=== PATIENT | female | born 1960 | race Caucasian/White ===

== ENCOUNTER → 2017-10-17 | Outpatient (CLI) | payer OTHER ==
[2017-10-17 17:13] LABS: HEMATOCRIT 43.7 % (37-47); MEAN CELL VOLUME 91.2 fL (80-100); MEAN CORPUSCULAR HEMOGLOBIN 31.3 pg (25-34); MEAN CORPUSCULAR HGB CONC 34.3 g/dl (32-36); MEAN PLATELET VOLUME 11.1 fL (7.4-10.4); PLATELET COUNT 287 K/uL (130-400); RED CELL DISTRIBUTION WIDTH CV 13.7 % (11.5-14.5); RED CELL DISTRIBUTION WIDTH SD 45.8 fL (36.4-46.3); WHITE BLOOD COUNT 7.09 K/uL (4.8-10.8)
[2017-10-17 17:44] LABS: ALBUMIN 4.3 gm/dl (3.4-5.0); ALT/SGPT 35 U/L (12-78); AST/SGOT 23 U/L (15-37); BLOOD UREA NITROGEN 15 mg/dl (7-18); CALCIUM 9.4 mg/dl (8.5-10.1); CARBON DIOXIDE 26 mmol/L (21-32); CHOLESTEROL 245 mg/dl (0-200); CREATININE 0.79 mg/dl (0.60-1.20); GLUCOSE 88 mg/dl (70-99); POTASSIUM 4.2 mmol/L (3.5-5.1); SODIUM 138 mmol/L (136-145)
[2017-10-17 17:55] LABS: ALKALINE PHOSPHATASE 82 U/L (45-117); LDL CHOLESTEROL CALCULATED 156 mg/dl; TOTAL PROTEIN 7.5 gm/dl (6.4-8.2)
== END | disposition home or self-care (01) ==
LOC: C.LABPBG 10:59
PROVIDERS: ATTEND Family Medicine
DX: I10 Essential (primary) hypertension (principal); E78.00 Pure hypercholesterolemia, unspecified; Z11.59 Encounter for screening for other viral diseases

== ENCOUNTER → 2018-04-16 | Outpatient (CLI) | payer OTHER ==
[2018-04-16 13:01] LABS: HEMATOCRIT 44.9 % (37-47); HEMOGLOBIN 15.4 g/dL (12.0-16.0); MEAN CELL VOLUME 89.6 fL (80-100); MEAN CORPUSCULAR HEMOGLOBIN 30.7 pg (25-34); MEAN CORPUSCULAR HGB CONC 34.3 g/dl (32-36); MEAN PLATELET VOLUME 11.3 fL (7.4-10.4); PLATELET COUNT 322 K/uL (130-400); RED CELL DISTRIBUTION WIDTH CV 14.2 % (11.5-14.5); RED CELL DISTRIBUTION WIDTH SD 46.4 fL (36.4-46.3); WHITE BLOOD COUNT 7.46 K/uL (4.8-10.8)
[2018-04-16 13:32] LABS: ALT/SGPT 36 U/L (12-78); AST/SGOT 20 U/L (15-37); BLOOD UREA NITROGEN 12 mg/dl (7-18); CALCIUM 9.5 mg/dl (8.5-10.1); CARBON DIOXIDE 26 mmol/L (21-32); CHOLESTEROL 234 mg/dl (0-200); CREATININE 0.76 mg/dl (0.60-1.20); GLUCOSE 95 mg/dl (70-99); LDL CHOLESTEROL CALCULATED 139 mg/dl; POTASSIUM 4.1 mmol/L (3.5-5.1); SODIUM 140 mmol/L (136-145)
== END | disposition home or self-care (01) ==
LOC: C.LABPBG 10:38
PROVIDERS: ATTEND Family Medicine
DX: I10 Essential (primary) hypertension (principal); E78.00 Pure hypercholesterolemia, unspecified

== ENCOUNTER 2020-05-29 21:05 | Inpatient (IN) ==
--- NOTE | 2020-05-29 21:47 | Emergency Department Note ---
History of Present Illness General Chief complaint: Fever Stated complaint: FEVER - CHEMO AND RADIATION PT - JUST GOT PORT Time Seen by Provider: 05/29/20 21:27 Source: patient Mode of arrival: ambulatory Limitations: no limitations History of Present Illness Provider complaint: Fever Maximum Pain Intensity: 3 Resents to the ED with a chief complaint of fever no other symptoms. The patient states that she was recently diagnosed with lung cancer. She had a port placed in her left chest wall 4 days ago. She states that she had a fever today of 101.8 at 6 PM today. She came to the ED and is afebrile here. She reports some mild body aches but no other symptoms. She has not had a runny nose or cough. No shortness of breath. No urinary symptoms. No rashes. She is being treated with small cell lung cancer. She just had chemotherapy and radiation therapy this past week. Home Medications Home Medications Medication Instructions Recorded Confirmed Type simvastatin 20 mg tablet 20 mg PO HS #90 tab 12/29/19 05/29/20 Rx amlodipine 10 mg PO QAM 04/14/20 05/29/20 History fenofibrate nanocrystallized 48 mg PO QAM 04/14/20 05/29/20 History hydrochlorothiazide 25 mg PO QAM 04/14/20 05/29/20 History metoprolol succinate 100 mg PO QAM 04/14/20 05/29/20 History omeprazole 20 mg PO DAILY PRN 05/19/20 05/29/20 History acetaminophen 1,000 mg PO Q6H PRN 05/29/20 05/29/20 History olanzapine 2.5 mg PO HS 05/29/20 05/29/20 History ondansetron HCl 8 mg PO DAILY PRN 05/29/20 05/29/20 History prochlorperazine maleate 10 mg PO Q6H PRN 05/29/20 05/29/20 History Allergies Allergy/AdvReac Type Severity Reaction Status Date / Time lisinopril AdvReac Mild Cough Verified 05/29/20 22:03 Past Med/Surg History Medical History Arthritis Bilat Knees & lower back Cancer LUNG CA, CURRENT CHEMO AND RADIATION Depression Hypercholesterolemia Hypertension Jaw clicking Mediastinal adenopathy Restless leg syndrome Surgical History H/O arthroscopic knee surgery 1998 RIGHT/ 2011 LEFT H/O tubal ligation 1991 H/O: section x2 1987 & 1982 History of bronchoscopy 04/21/2020 - with positive biopsy History of excision of pilonidal cyst 1987 History of tooth extraction molars Port-A-Cath in place (05/25/20) Insertion of Mediport Left Subclavian with Fluoroscopy Dr. Ramos 05/25/2020 S/P carpal tunnel release 1989's RT / 2014 LEFT S/P tonsillectomy Age 4 Family History Mother , Passed age 64 of pancreatic cancer Hypertension Cancer Father Hearing loss Grandmother (Maternal) , Passed age 79 of Stomach Cancer No problems noted. Uncle , Passed in 80's of Colorectal Cancer No problems noted. Brother No problems noted. Brother No problems noted. Sister No problems noted. Grandfather (Maternal) , Passed age 89 of Bladder Cancer No problems noted. Son No problems noted. Daughter No problems noted. Grandmother Cancer Grandfather Cancer Other No family history of allergies No family history of bleeding disorder Denies family history of Ovarian cancer Heart disease Breast cancer Lung cancer Asthma Social History Smoking Status: Former smoker Tobacco Type: Cigarettes Age Started Using Tobacco: 20; packs per day: 1; Second Hand Exposure: No; Hx Alcohol Use: Yes (social) Alcohol type: beer and wine Alcohol Intake Frequency: Monthly or Less Hx Substance Use: No (is a current smoker) Preferred Language: Ethiopian Communication Ability: Effective Visual Impairment: No Limitations Hearing Ability: Normal Turn Laster Required: No Beliefs That Will Affect Care: None marital status: Current Living Situation: Spouse current occupational status: employed 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 How many Children do You have: 2 Feels Safe at Home: Yes Childhood Exposure to Second-Hand Smoke: Yes caffeine: Yes (ice tea) during the past year weight has: remained stable Dental Care, Regularly: Yes Physical Activity Frequency: Does not Exercise Seatbelt Use: always Sunscreen Use: No Review of Systems A total of 10 systems reviewed and were otherwise negative Physical Exam Vital Signs Vital Signs - 24 hr 05/29/20 21:08 05/29/20 22:48 Temperature 37.1 C Temperature Source Oral Pulse Rate 99 H Pulse Rate [Radial] 73 Pulse Rhythm [Radial] Regular Respiratory Rate 18 18 Respiratory Effort / Characteristics Non-Labored Non-Labored Spontaneous Respiratory Depth Normal Normal Respiratory Pattern Regular Blood Pressure 151/80 H Blood Pressure [Right Arm] 112/62 Blood Pressure Mean 103 Blood Pressure Mean [Right Arm] 78 Pulse Oximetry 97 96 Oxygen Delivery Method Room Air Room Air Sepsis Recent Fever Within 48 Hours Yes Sepsis New/Unexplained Change in Mental Status No Sepsis Action Taken by Nursing No Action Required CONSTITUTIONAL/VITAL SIGNS: Reviewed / noted above. GENERAL: Non-toxic in appearance. INTEGUMENTARY: Warm, dry, and Cylinder. HEAD: Normocephalic. EYES: without scleral icterus or trauma. ENT/OROPHARYNX: clear and moist. LYMPHADENOPATHY/NECK: Is supple without lymphadenopathy or meningismus. RESPIRATORY: Lungs clear and equal. CARDIOVASCULAR: Regular rate and rhythm. CHEST: There is a well-healed wound from a port in the left chest wall. No swelling, discharge or erythema. Mildly tender. GI/ABDOMEN: Soft and nontender. No organomegaly or pulsatile mass. No rebound or guarding. Normal bowel sounds. EXTREMITIES: Warm and well perfused. BACK: No CVA tenderness. NEUROLOGICAL: Intact without focal deficits. PSYCHIATRIC: normal affect. MUSCULOSKELETAL: Normally developed with good muscle tone. TRIAGE NURSING DOCUMENTATION REVIEWED. Medical Decision Making Medical Records Attestation: I reviewed the patient's medical records. Home Medications Current Medication List: was personally reviewed by me Laboratory Data Attestation: I reviewed the patient's lab results. Result diagrams: 05/29/20 22:09 05/29/20 22:09 Lab Results 05/29/20 05/29/20 Range/Units 22:09 22:09 WBC 1.26 L (4.8-10.8) K/uL RBC 4.17 L (4.2-5.4) M/uL Hgb 12.6 (12.0-16.0) g/dL Hct 36.3 L (37-47) % MCV 87.1 (80-100) fL MCH 30.2 (25-34) pg MCHC 34.7 (32-36) g/dL RDW Std Deviation 41.3 (36.4-46.3) fL RDW Coeff of Sebastián 12.9 (11.5-14.5) % Plt Count 136 (130-400) K/uL MPV 9.6 (7.4-10.4) fL Immature Gran % (Auto) 0.0 % Neut % (Auto) 7.1 % Lymph % (Auto) 60.3 % [place] % (Auto) 27.8 % Eos % (Auto) 3.2 % Baso % (Auto) 1.6 % Neut # (Auto) 0.09 L* (1.4-6.5) K/uL Lymph # (Auto) 0.76 L (1.2-3.4) K/uL [place] # (Auto) 0.35 (0.11-0.59) K/uL Eos # (Auto) 0.04 (0-0.5) K/uL Baso # (Auto) 0.02 (0-0.2) K/uL Immature Gran # (Auto) 0.00 (0.00-0.02) K/uL Sodium 139 (136-145) mmol/L Potassium 3.5 (3.5-5.1) mmol/L Chloride 104 (98-107) mmol/L Carbon Dioxide 26 (21-32) mmol/L Anion Gap 9.0 (3-11) BUN 16 (7-18) mg/dl Creatinine 1.16 (0.6-1.2) mg/dl Est Cr Clr Drug Dosing Not Reportable Est GFR ( Amer) 60.1 Est GFR (Non-Af Amer) 51.9 BUN/Creatinine Ratio 13.6 (10-20) Glucose 88 (70-99) mg/dl Calcium 9.1 (8.5-10.1) mg/dl Total Bilirubin 0.3 (0.2-1) mg/dl AST 20 (15-37) U/L ALT 35 (12-78) U/L Alkaline Phosphatase 84 (45-117) U/L Total Protein 7.6 (6.4-8.2) gm/dl Albumin 3.7 (3.4-5.0) gm/dl Globulin 3.9 (2.5-4.0) gm/dl Albumin/Globulin Ratio 1.0 (0.9-2) Imaging Data Attestation: I personally reviewed and interpreted this imaging study as follow s: My Impression: Chest x-ray: Per my interpretation is negative for acute disease MDM Narrative The patient presents to the ED with a chief complaint of a fever at home as well as some mild body aches. Her fever was at 6 PM. She did not take any antipyretics. She is afebrile here. She has recently received chemotherapy and radiation therapy and had a left chest wall port placed 4 days ago. She is being treated for small cell lung cancer. Her exam is unremarkable. She is afebrile now. Her white blood cell count is 1.26 with an ANC of 90. Chemistry panel was unremarkable. The patient was started on IV cefepime. She appears clinically well. Because of the ANC and history of fever, she will be seen by the hospitalist for further evaluation and care. Impression & Plan Febrile neutropenia Discharge Plan Visit Data Chief Complaint: Fever Stated Complaint: FEVER - CHEMO AND RADIATION PT - JUST GOT PORT ED Provider: Siva Bruner Discharge Problem: Febrile neutropenia Patient Disposition: Being Evaluated by Hospitalist Forms Stand Alone Forms: My [facility] Prescriptions Prescriptions: No Action simvastatin 20 mg tablet 20 mg PO HS Qty: 90 RF: 3 omeprazole 20 mg capsule,delayed release(DR/EC) 20 mg PO DAILY PRN (Reason: Acid Reflux) RF: 0 ondansetron HCl 8 mg tablet 8 mg PO DAILY PRN (Reason: Nausea) RF: 0 prochlorperazine maleate 10 mg tablet 10 mg PO Q6H PRN (Reason: Nausea) RF: 0 olanzapine 2.5 mg tablet 2.5 mg PO HS RF: 0 acetaminophen 500 mg Tablet 1,000 mg PO Q6H PRN (Reason: Fever Or Pain) RF: 0 metoprolol succinate 100 mg tablet extended release 24 hr 100 mg PO QAM RF: 0 amlodipine 10 mg tablet 10 mg PO QAM RF: 0 hydrochlorothiazide 25 mg tablet 25 mg PO QAM RF: 0 fenofibrate nanocrystallized 48 mg tablet 48 mg PO QAM RF: 0 Referrals Referrals: Jane Ortiz DO [Primary Care Provider] -
[2020-05-29 22:18] LABS: Hematocrit (blood only) 36.3 % (37-47); Hemoglobin 12.6 g/dL (12.0-16.0); Mean Corpuscular Hemoglobin 30.2 pg (25-34); Mean Corpuscular Hgb Conc 34.7 g/dL (32-36); Mean Corpuscular Volume 87.1 fL (80-100); Mean Platelet Volume 9.6 fL (7.4-10.4); Platelet Count 136 K/uL (130-400); RDW Coefficient of Variation 12.9 % (11.5-14.5); RDW Standard Deviation 41.3 fL (36.4-46.3); Red Blood Count 4.17 M/uL (4.2-5.4); White Blood Count 1.26 K/uL (4.8-10.8)
[2020-05-29 22:37] LABS: Basophils # (auto) 0.02 K/uL (0-0.2); Basophils % (auto) 1.6 %; Eosinophils # (auto) 0.04 K/uL (0-0.5); Eosinophils % (auto) 3.2 %; Lymphocytes # (auto) 0.76 K/uL (1.2-3.4); Lymphocytes % (auto) 60.3 %; Monocytes # (auto) 0.35 K/uL (0.11-0.59); Monocytes % (auto) 27.8 %; Neutrophils # (auto) 0.09 K/uL (1.4-6.5); Neutrophils % (auto) 7.1 %
[2020-05-29 22:39] LABS: Alanine Aminotransferase 35 U/L (12-78); Albumin Level 3.7 gm/dl (3.4-5.0); Aspartate Aminotransferase 20 U/L (15-37); BUN Creatinine Ratio 13.6 (10-20); Blood Urea Nitrogen 16 mg/dl (7-18); Calcium 9.1 mg/dl (8.5-10.1); Carbon Dioxide 26 mmol/L (21-32); Chloride 104 mmol/L (98-107); Est GFR (African American) 60.1; Est GFR (Non-African American) 51.9; Glucose 88 mg/dl (70-99); Potassium 3.5 mmol/L (3.5-5.1); Sodium 139 mmol/L (136-145)
[2020-05-29 22:42] LABS: Alkaline Phosphatase 84 U/L (45-117); Bilirubin,Total 0.3 mg/dl (0.2-1); Globulin 3.9 gm/dl (2.5-4.0); Total Protein 7.6 gm/dl (6.4-8.2)
[2020-05-29] MEDS ORDERED: CEFEPIME 2,000 MG/20 ML VIAL IV STA (23:03)
[2020-05-29 23:47] LABS: Appearance Urine Clear (Clear); Bilirubin Urine Negative (Negative); Blood Urine Negative (Negative); Color Urine Yellow; Glucose Urine UA Negative (Negative); Ketones Urine Negative (Negative); Leukocyte Esterase Urine Negative (Negative); Nitrite Urine Negative (Negative); Protein Urine Negative (Negative); Specific Gravity Urine 1.019 (1.000-1.030); Urobilinogen Urine Negative (Negative); pH Urine 6.5 (4.5-7.5)
--- NOTE | 2020-05-29 23:51 | History & Physical Report ---
Date of Service May 29, 2020 Assessment & Plan (1) Febrile neutropenia: We will give Neupogen 480 mcg subcu x1 tonight. Follow serial CBC with differential, chemistry profile and magnesium levels. Neutropenia precautions Patient was given cefepime 2 g IV in the ED. We will place on vancomycin IV per pharmacokinetic monitoring and Zosyn 4.5 g IV every 8 hours Follow urine culture and sensitivity, blood culture and sensitivity. Present on Admission?: Yes (2) Small cell lung cancer: Undergoing chemotherapy with Dr. Olmos. Undergoing continuing daily radiation therapy with Dr. Darby. Both of whom will be consulted Present on Admission?: Yes (3) Hypertension: Hold amlodipine grams daily and HCTZ 25 mg daily. Continue metoprolol succinate 100 mg p.o. every morning with hold parameters Present on Admission?: Yes (4) Hypercholesterolemia: Continue simvastatin 20 mg p.o. at bedtime and fenofibrate 48 mg every morning Present on Admission?: Yes (5) Depression: Continue olanzapine 2.5 mg p.o. at bedtime Present on Admission?: Yes (6) Restless leg syndrome: On no specific treatment at this time Present on Admission?: Yes (7) GERD (gastroesophageal reflux disease): Omeprazole 20 mg p.o. daily Present on Admission?: Yes History of Present Illness Chief Complaint: The patient presents to the emergency department with complaint of fever recorded as 101.8 F at 6 PM today. Primary Care Provider: Jane cosby DO The patient is a 60-year-old female with a past medical history including small cell lung cancer, depression, hypercholesterolemia, hypertension, restless leg syndrome, tobacco abuse, GERD who was diagnosed with lung cancer in March 2020. She is undergoing daily radiation therapy with Dr. Darby, which has caused some [id number] swallowing discomfort, and has completed her first round of chemotherapy with Dr. Olmos. She developed a temperature of 101.6 F at 6 PM today, but has no specific symptoms. She has not had any recent travels or sick exposures. She has been COVID-19 test negative on 04/17/2020, 04/28/20 and 05/22/2020. Allergies Allergy/AdvReac Type Severity Reaction Status Date / Time lisinopril AdvReac Mild Cough Verified 05/29/20 22:03 Home Medications Home Medications Medication Instructions Recorded Confirmed Type simvastatin 20 mg tablet 20 mg PO HS #90 tab 12/29/19 05/29/20 Rx amlodipine 10 mg PO QAM 04/14/20 05/29/20 History fenofibrate nanocrystallized 48 mg PO QAM 04/14/20 05/29/20 History hydrochlorothiazide 25 mg PO QAM 04/14/20 05/29/20 History metoprolol succinate 100 mg PO QAM 04/14/20 05/29/20 History omeprazole 20 mg PO DAILY PRN 05/19/20 05/29/20 History acetaminophen 1,000 mg PO Q6H PRN 05/29/20 05/29/20 History olanzapine 2.5 mg PO HS 05/29/20 05/29/20 History ondansetron HCl 8 mg PO DAILY PRN 05/29/20 05/29/20 History prochlorperazine maleate 10 mg PO Q6H PRN 05/29/20 05/29/20 History Past Med/Surg History Medical History Arthritis Bilat Knees & lower back Cancer LUNG CA, CURRENT CHEMO AND RADIATION Depression Hypercholesterolemia Hypertension Jaw clicking Mediastinal adenopathy Restless leg syndrome Surgical History H/O arthroscopic knee surgery 1998 RIGHT/ 2010 LEFT H/O tubal ligation 1991 H/O: section x2 1987 & 1982 History of bronchoscopy 04/21/2020 - with positive biopsy History of excision of pilonidal cyst 1987 History of tooth extraction molars Port-A-Cath in place (05/25/20) Insertion of Mediport Left Subclavian with Fluoroscopy Dr. Ramos 05/25/2020 S/P carpal tunnel release 1989's RT / 2014 LEFT S/P tonsillectomy Age 4 Family History Mother , Passed age 64 of pancreatic cancer Hypertension Cancer Father Hearing loss Grandmother (Maternal) , Passed age 79 of Stomach Cancer No problems noted. Uncle , Passed in 80's of Colorectal Cancer No problems noted. Brother No problems noted. Brother No problems noted. Sister No problems noted. Grandfather (Maternal) , Passed age 89 of Bladder Cancer No problems noted. Son No problems noted. Daughter No problems noted. Grandmother Cancer Grandfather Cancer Other No family history of allergies No family history of bleeding disorder Denies family history of Ovarian cancer Heart disease Breast cancer Lung cancer Asthma Social History Smoking Status: Former smoker Tobacco Type: Cigarettes Age Started Using Tobacco: 20; packs per day: 1; Second Hand Exposure: No; Hx Alcohol Use: Yes Alcohol type: wine Alcohol Intake Frequency: Monthly or Less Hx Substance Use: No Preferred Language: Salvadorean Communication Ability: Effective Visual Impairment: No Limitations Hearing Ability: Normal Cafe Lead Required: No Beliefs That Will Affect Care: None marital status: Current Living Situation: Spouse current occupational status: employed 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 How many Children do You have: 2 Feels Safe at Home: Yes Childhood Exposure to Second-Hand Smoke: Yes caffeine: Yes (ice tea) during the past year weight has: remained stable Dental Care, Regularly: Yes Physical Activity Frequency: Does not Exercise Seatbelt Use: always Sunscreen Use: No Review of Systems Review of Systems: The patient denies chest pain, palpitations, shortness of breath, dyspnea on exertion, cough, lower extremity swelling, chills, sweats, weight change, fatigue, nausea, vomiting, diarrhea , constipation, abdominal pain, pelvic pain, blood in urine or stool, dysuria, urinary frequency or urgency, lightheadedness, dizziness, headache, memory loss, loss of consciousness, rash, abnormal bruising or bleeding, imbalance, focal or generalized weakness, numbness or tingling in arms or legs, generalized arthralgias or myalgias, back or neck pain, or night sweats. The review of systems is otherwise negative other than for that already noted above, and at least 10 systems have been reviewed. Physical Exam Physical Exam: The patient is awake, alert and oriented 3, well developed and well nourished, normocephalic and atraumatic, lying in bed and in no acute distress. HEENT--PERRL, EOMI, mucous membranes and oropharynx dry. Neck--supple. No JVD. No bruits. Thyroid normal, trachea midline, no adenopa thy. Heart--normal S1 and S2. No murmurs, rubs or gallops. Lungs--clear bilaterally, no respiratory distress, no accessory muscle use. Abdomen--normal bowel sounds and soft. Nontender. Nondistended. Extremities--no cyanosis or clubbing. No edema. Dermatologic--normal skin turgor, normal color, no abnormal lymph nodes, no rash. Neurologic--cranial nerves II through XII grossly intact. Rheumatologic--normal range of motion. Psychiatric--normal affect. Results & Data Results & Data ([facility]) Vital Signs (Past 12 Hours) Vital Signs Temp Pulse Pulse Resp BP BP Pulse Ox 05/29/20 23:31 84 20 124/63 95 05/29/20 23:00 74 22 121/73 95 05/29/20 22:48 73 18 112/62 96 05/29/20 21:08 98.8 F 99 H 18 151/80 H 97 Laboratory Results Laboratory Results WBC 1.26 K/uL (4.8-10.8) L 05/29/20 22:09 RBC 4.17 M/uL (4.2-5.4) L 05/29/20 22:09 Hgb 12.6 g/dL (12.0-16.0) 05/29/20 22:09 Hct 36.3 % (37-47) L 05/29/20 22:09 MCV 87.1 fL (80-100) 05/29/20 22:09 MCH 30.2 pg (25-34) 05/29/20 22:09 MCHC 34.7 g/dL (32-36) 05/29/20 22:09 RDW Std Deviation 41.3 fL (36.4-46.3) 05/29/20 22:09 RDW Coeff of Sebastián 12.9 % (11.5-14.5) 05/29/20 22:09 Plt Count 136 K/uL (130-400) 05/29/20 22:09 MPV 9.6 fL (7.4-10.4) 05/29/20 22:09 Immature Gran % (Auto) 0.0 % 05/29/20 22:09 Neut % (Auto) 7.1 % 05/29/20 22:09 Lymph % (Auto) 60.3 % 05/29/20 22:09 [place] % (Auto) 27.8 % 05/29/20 22:09 Eos % (Auto) 3.2 % 09/07/20 22:09 Baso % (Auto) 1.6 % 05/29/20 22:09 Neut # (Auto) 0.09 K/uL (1.4-6.5) L* 05/29/20 22:09 Lymph # (Auto) 0.76 K/uL (1.2-3.4) L 05/29/20 22:09 [place] # (Auto) 0.35 K/uL (0.11-0.59) 05/29/20 22:09 Eos # (Auto) 0.04 K/uL (0-0.5) 05/29/20 22:09 Baso # (Auto) 0.02 K/uL (0-0.2) 05/29/20 22:09 Immature Gran # (Auto) 0.00 K/uL (0.00-0.02) 05/29/20 22:09 Sodium 139 mmol/L (136-145) 05/29/20 22:09 Potassium 3.5 mmol/L (3.5-5.1) 05/29/20 22:09 Chloride 104 mmol/L (98-107) 05/29/20 22:09 Carbon Dioxide 26 mmol/L (21-32) 05/29/20 22:09 Anion Gap 9.0 (3-11) 05/29/20 22:09 BUN 16 mg/dl (7-18) 05/29/20 22:09 Creatinine 1.16 mg/dl (0.6-1.2) 05/29/20 22:09 Est Cr Clr Drug Dosing Not Reportable 05/29/20 22:09 Est GFR ( Amer) 60.1 05/29/20 22:09 Est GFR (Non-Af Amer) 51.9 05/29/20 22:09 BUN/Creatinine Ratio 13.6 (10-20) 05/29/20 22:09 Glucose 88 mg/dl (70-99) 05/29/20 22:09 Calcium 9.1 mg/dl (8.5-10.1) 05/29/20 22:09 Total Bilirubin 0.3 mg/dl (0.2-1) 05/29/20 22:09 AST 20 U/L (15-37) 05/29/20 22:09 ALT 35 U/L (12-78) 05/29/20 22:09 Alkaline Phosphatase 84 U/L (45-117) 05/29/20 22:09 Total Protein 7.6 gm/dl (6.4-8.2) 05/29/20 22:09 Albumin 3.7 gm/dl (3.4-5.0) 05/29/20 22:09 Globulin 3.9 gm/dl (2.5-4.0) 05/29/20 22:09 Albumin/Globulin Ratio 1.0 (0.9-2) 05/29/20 22:09 Urine Color Yellow 05/29/20 23:11 Urine Appearance Clear (Clear) 05/29/20 23:11 Urine pH 6.5 (4.5-7.5) 05/29/20 23:11 Ur Specific [place] 1.019 (1.000-1.030) 05/29/20 23:11 Urine Protein Negative (Negative) 05/29/20 23:11 Urine Glucose (UA) Negative (Negative) 05/29/20 23:11 Urine Ketones Negative (Negative) 05/29/20 23:11 Urine Blood Negative (Negative) 05/29/20 23:11 Urine Nitrite Negative (Negative) 05/29/20 23:11 Urine Bilirubin Negative (Negative) 05/29/20 23:11 Urine Urobilinogen Negative (Negative) 05/29/20 23:11 Ur Leukocyte Esterase Negative (Negative) 05/29/20 23:11 Code Status & VTE Plan Code Status Full code VTE Prophylaxis Plan VTE Prophylaxis will be ordered: Yes PG Care Time/CCT Total # of Minutes Spent Total Time Spent with Patient: Total time spent is greater than 50% in coordination of care (as documented) at patient's floor/unit and/or counseling patient: Coding Level of Care Code 71962 Initial Inpt Care Lvl 3 Diagnoses Febrile neutropenia D70.9; R50.81 Small cell lung cancer C34.90 Hypertension I10 Hypercholesterolemia E78.00 Depression F32.9 Restless leg syndrome G25.81 GERD (gastroesophageal reflux disease) K21.9
[2020-05-30] MEDS ORDERED: FILGRASTIM 480 MCG/1.6 ML VIAL SC ONE (00:09)
[2020-05-30] MEDS ORDERED: VANCOMYCIN CONSULT ACTIVE PRN ×2 (00:17→01:31)
[2020-05-30] MEDS ORDERED: VANCOMYCIN HCL 1,750 MG in SODIUM CHLORIDE 0.9% 500 ML IV STA (00:20)
[2020-05-30] MEDS ORDERED: PATIENT'S HEIGHT NEEDED SCH (01:30)
[2020-05-30] MEDS ORDERED: PIPERACILL/TAZOBAC CONSULT ACTIVE PRN (01:31)
[2020-05-30] MEDS ORDERED: MAGNESIUM HYDROXIDE SUSP 30 ML UDC PO PRN (01:31)
[2020-05-30] MEDS ORDERED: ONDANSETRON INJ 2 MG/ML 2 ML VIAL IV PRN (01:31)
[2020-05-30] MEDS ORDERED: ACETAMINOPHEN 500 MG TAB PO PRN (01:31)
[2020-05-30] MEDS ORDERED: ALUMINUM/MAGNESIUM SUSP 30 ML UDC PO PRN (01:31)
[2020-05-30] MEDS: PIPERACILLIN/TAZOBACTAM 4.5 GM in DEXTROSE 5% 100 ML IV SCH ×3 (04:13→20:33)
[2020-05-30 05:41] LABS: Hematocrit (blood only) 33.7 % (37-47); Hemoglobin 11.3 g/dL (12.0-16.0); Mean Corpuscular Hemoglobin 29.4 pg (25-34); Mean Corpuscular Hgb Conc 33.5 g/dL (32-36); Mean Corpuscular Volume 87.5 fL (80-100); Mean Platelet Volume 9.7 fL (7.4-10.4); Platelet Count 147 K/uL (130-400); RDW Standard Deviation 41.7 fL (36.4-46.3); Red Blood Count 3.85 M/uL (4.2-5.4); White Blood Count 1.29 K/uL (4.8-10.8)
[2020-05-30 05:58] LABS: Partial Thromboplastin Time 27.5 Seconds (21.0-31.0); Prothrombin Time 10.6 Seconds (9.0-12.0)
[2020-05-30 06:15] LABS: Basophils # (auto) 0.01 K/uL (0-0.2); Basophils % (auto) 0.8 %; Dohle Bodies 1+; Eosinophils # (auto) 0.04 K/uL (0-0.5); Eosinophils % (auto) 3.1 %; Lymphocytes # (auto) 0.72 K/uL (1.2-3.4); Lymphocytes % (auto) 55.8 %; Monocytes # (auto) 0.38 K/uL (0.11-0.59); Monocytes % (auto) 29.5 %; Neutrophils # (auto) 0.14 K/uL (1.4-6.5); Neutrophils % (auto) 10.8 %
[2020-05-30 06:17] LABS: Albumin Level 3.3 gm/dl (3.4-5.0); Calcium 8.7 mg/dl (8.5-10.1); Creatinine Clr Calc Pharmacy 59.8 ml/min; Est GFR (African American) 71.9; Est GFR (Non-African American) 62.1; Magnesium 1.6 mg/dl (1.8-2.4); Potassium 3.1 mmol/L (3.5-5.1)
[2020-05-30 06:19] LABS: Bilirubin,Total 0.6 mg/dl (0.2-1); Globulin 3.4 gm/dl (2.5-4.0); Total Protein 6.7 gm/dl (6.4-8.2)
--- NOTE | 2020-05-30 06:51 | XRay Report ---
XR chest 1V portable HISTORY: 60 years-old Female fever acute fever COMPARISON: Chest radiograph 05/25/2020, PET CT 04/26/2020 TECHNIQUE: Portable AP view of the chest FINDINGS: Left upper lobe/perihilar mass redemonstrated. Unchanged positioning of the left subclavian Infuse-a- Port catheter. No pneumothorax, pleural effusion, overt pulmonary edema or airspace consolidation typ ical for pneumonia. Bones appear grossly intact. Minimal linear subsegmental left lung base scarring/ atelectasis. Degenerative changes of the shoulders and spine. IMPRESSION: 1. No acute process. 2. Left upper lobe/perihilar mass redemonstrated. ACT 112: Negative or not required by law. The above report was generated using voice recognition software. It may contain grammatical, syntax o r spelling errors. Electronically signed by: Kofi Torres M.D. 05/30/2020 6:49 AM
[2020-05-30] MEDS: ACETAMINOPHEN 325 MG TAB PO PRN ×3 (07:37→18:46)
[2020-05-30] MEDS: FENOFIBRATE NANOCRYSTALLIZED 48 MG TABLET PO SCH (08:06)
[2020-05-30] MEDS: METOPROLOL SUCC 50MG EXT REL TAB PO SCH (08:06)
[2020-05-30] MEDS: PANTOprazole 40 MG TAB PO SCH (08:06)
[2020-05-30] MEDS: HEPARIN SOD 5,000 UNIT/0.5 ML VIAL SQ SCH ×2 (08:08→20:33)
[2020-05-30] MEDS ORDERED: POTASSIUM CHLORIDE 20 MEQ TABCR PO STA (08:11)
[2020-05-30] MEDS: MAGNESIUM SULFATE / D5W 1 GM/100 ML BAG IV SCH ×2 (08:42→10:28)
--- NOTE | 2020-05-30 08:44 | Radiation Oncology Progress Nt ---
Date of Service May 30, 2020 Assessment & Plan (1) Small cell lung cancer: Assessment: Ms. Tipton is a 60 year old female who is currently under treatment with radiation therapy for limited stage small cell lung carcinoma. The patient was admitted to the hospital due to neutropenic fever. We have been asked to evaluate the patient regarding further radiation therapy. Recommendation: I have spoken with Dr. Olmos who is in agreement to proceed with radiation therapy. Plan: 1. Continue with radiation therapy. Patient was brought down for treatment today. 2. Continue all other care as per medical oncology and primary medical team. Present on Admission?: Yes Admission and Anticipated Discharge Date Admission Date: May 29, 2020 Subjective Patient currently on radiation therapy and chemotherapy for limited stage small cell lung carcinoma. Patient received treatments. Review of Systems Review of Systems: All systems reviewed & are unremarkable except as noted in HPI & below Physical Exam Constitutional: WD/WN, vitals as above well developed and well nourished Eyes: PERRL, conjunctivae normal, anicteric sclerae ENMT: external ear and nose normal, oropharynx normal Neck: trachea midline, no thyromegaly Respiratory: normal respiratory effort, lungs clear to auscultation Cardiovascular: RRR, no murmur, no edema Gastrointestinal (Abdomen): normal bowel sounds, soft, nontender, no hepatosplenomegaly Musculoskeletal: no cyanosis or clubbing, extremities motor strength 5/5 Skin: no rashes, warm and dry Neurologic: patellar DTR's 2+ bilat, sensation intact and PERRL, EOMI, accommodation nl, no face palsy, no dysarthria Psychiatric: A+Ox3, euthymic affect Results & Data ([facility]) Vital Signs (Past 12 Hours) Vital Signs Temp Pulse Pulse Pulse Resp BP BP 05/30/20 07:32 36.8 C 72 16 113/68 05/30/20 01:19 36.7 C 81 18 05/30/20 00:30 80 21 127/66 05/30/20 00:00 80 17 140/86 05/29/20 23:31 84 20 124/63 05/29/20 23:00 74 22 121/73 05/29/20 22:48 73 18 05/29/20 21:08 37.1 C 99 H 18 151/80 H BP Pulse Ox 05/30/20 07:32 96 05/30/20 01:19 144/75 H 97 05/30/20 00:30 97 05/30/20 00:00 96 05/29/20 23:31 95 05/29/20 23:00 95 05/29/20 22:48 112/62 96 05/29/20 21:08 97
--- NOTE | 2020-05-30 09:32 | Pharmacy Report ---
Pharmacy Abx Initial Consult - Date of Service May 30, 2020 - Pharmacy Dosing Scope Date of Consult: 05/30/20 Consultation requested by: Dr. Acuna Pharmacy is consulted to initiate vancomycin and Zosyn IV dosing therapy, order appropriate labs and adjust drug dose/frequency. - Subjective The patient is a 60 year old F admitted on 05/29/20 23:50. - Objective Height: 5 ft 2 in Weight: 79.4 kg Vital Signs (Past 12hrs): Vital Signs Temp Pulse Pulse Pulse Resp BP BP 05/30/20 07:32 36.8 C 72 16 113/68 05/30/20 01:19 36.7 C 81 18 05/30/20 00:30 80 21 127/66 05/30/20 00:00 80 17 140/86 05/29/20 23:31 84 20 124/63 05/29/20 23:00 74 22 121/73 05/29/20 22:48 73 18 BP Pulse Ox 05/30/20 07:32 96 05/30/20 01:19 144/75 H 97 05/30/20 00:30 97 05/30/20 00:00 96 05/29/20 23:31 95 05/29/20 23:00 95 05/29/20 22:48 112/62 96 Lab Results (24hrs): Laboratory Tests (24 Hours) 05/30/20 05/30/20 05/29/20 05:09 05:09 22:09 WBC 1.29 L Neut # (Auto) 0.14 L* Creatinine 1.00 1.16 Est Cr Clr Drug Dosing 59.8 Not Reportable 05/29/20 22:09 WBC 1.26 L Neut # (Auto) 0.09 L* Creatinine Est Cr Clr Drug Dosing Micro Results: 05/29/20 22:10 Aerobic Blood Culture - Pending Blood Anaerobic Blood Culture - Pending 05/29/20 22:09 Aerobic Blood Culture - Pending Blood Anaerobic Blood Culture - Pending - Assessment & Plan Assessment 60 year old F ordered empiric vancomycin and Zosyn for treatment of febrile neutropenia. Of note, patient was diagnosed with small-cell lung cancer in February of 2020 - has completed first round of chemotherapy and is currently undergoing daily radiation therapy. Fever prior to admission (Tmax of 101.8 F), patient has been afebrile since time of admission. Infectious source unknown -patient did have port placement 4 days ago, COVID-19 negative, no recent travel/sick exposures. WBC/neutrophils of 1.26/0.09 yesterday - Neupogen 480 mcg x 1 given early this morning. SCr slightly above baseline (1 mg/dL vs. 0.77 mg/dL in April of 2020). Blood cultures (05/29/20) x 2: ordered and pending Plan Vancomycin IV * Loading dose: Vancomycin 1750 mg (22 mg/kg) IV x 1 * Maintenance dose: Vancomycin 1 g IV q12h * Patient meets criteria for vancomycin AUC dosing nomogram * AUC/BERTHA is the preferred PK/PD target for vancomycin * -Target AUC/BERTHA = 400-600 * -AUC guided dosing is effective and associated with decreased risk of nephrotoxicity * Will order vanco trough if medication is to continue beyond 48 hours Piperacillin/tazobactam * 4.5 g IV extended infusion every 8 hours for CrCl greater than 20 mL/min * Aggressive dosing selected due to potential illness severity and borderline BMI for dose increase Pharmacy will continue to follow and will adjust dose/frequency as necessary. Thank you.
--- NOTE | 2020-05-30 10:11 | Consultation Report ---
DATE OF CONSULTATION: 05/30/2020 REASON FOR CONSULTATION: Neutropenic fever in a pleasant 60-year-old female patient with small cell lung cancer. HISTORY OF PRESENT ILLNESS: The patient is a very pleasant 60-year-old female recently diagnosed with small cell lung cancer, currently under my care and receiving combination of etoposide and cisplatin with radiation therapy. The patient was admitted yesterday with low grade fever and associated pins and needles swallowing discomfort. She reports no current nausea or vomiting. States she did have a bout of diarrhea, however. The patient was last tested for COVID-19 on 04/17/2020, 04/28/2020 and 05/22/2020 all have been negative. Again, this lady was diagnosed with a stage IIIA small cell lung cancer end of 03/2020. Specifically, a PET scan as well as MRI of the brain were performed as staging radiographs. The PET scan specifically identified a 6.1 x 3.9, left upper lobe mass abutting the mediastinum. SUV was 19.1. There were mildly enlarged hypermetabolic left hilar AP window and subcarinal lymph nodes suggestive of metastatic disease. MRI performed on 04/20/2020 revealed no evidence of intracerebral disease. Overall, patient has done very well with her first cycle of treatment and not surprising she is now neutropenic. She has no other constituted symptoms that would suggest an underlying infection. She had a MediPort recently placed. PAST MEDICAL HISTORY: Significant for hypercholesterolemia, hypertension, limited stage small cell lung cancer, depression and arthritis. PAST SURGICAL HISTORY: Arthroscopic knee surgery, history of tubal ligation, section, bronchoscopy, tooth extraction, MediPort placement, carpal tunnel release and tonsillectomy. MEDICATIONS: Prior to admission include Compazine 10 mg p.o. q. 6 hours p.r.n., Zofran 8 mg p.o. q. 8 hours p.r.n., olanzapine 2.5 mg p.o. as needed for nausea, omeprazole 20 mg p.o. daily, metoprolol 100 mg p.o. daily, hydrochlorothiazide 25 mg p.o. daily, fenofibrate 48 mg p.o. daily, amlodipine 10 mg p.o. daily, simvastatin 20 mg p.o. daily. ALLERGIES: LISINOPRIL. SOCIAL HISTORY: The patient currently is unemployed. She had a [id number] smoking history, quitting upon diagnosis. She also consumes alcohol socially. FAMILY HISTORY: Very strong family history of cancers including first-degree relatives with lung, gastric and pancreatic cancers. REVIEW OF SYSTEMS: GENERAL: Positive for low-grade fever, no rigors, or chills. She is not anorexic or losing weight. SKIN: No rashes or lesions. No history of dermatoses. HEENT: Negative for headaches, lightheadedness or dizziness. No acute visual or hearing deficits. No sinus symptoms, sore throat or dysphagia. LYMPH: No history of lymphoproliferative disease. CARDIAC: No history of coronary artery disease, no angina or palpitations. PULMONARY: No history of COPD. She is not short of breath, dyspneic or orthopneic. She reports no hemoptysis. GASTROINTESTINAL: Single bout of diarrhea, but otherwise no nausea, vomiting, no abdominal pain. GENITOURINARY: No hematuria, dysuria, urinary incontinence. PSYCHIATRIC: Positive for depression by history. MUSCULOSKELETAL: Positive for osteoarthritis by history. No focal muscle weakness. ENDOCRINE: Negative for diabetes or thyroid disease. NEUROLOGIC: Negative for seizure, stroke, or migraine headache. HEMATOLOGIC: Positive for leukopenia and mild normocytic normochromic anemia, treatment-induced. PHYSICAL EXAMINATION: GENERAL: Very pleasant 60-year-old female, in good spirits, answers questions appropriately, in no acute distress. VITAL SIGNS: Temperature 36.8, pulse 72, respiratory rate 16, blood pressure 113/68. SKIN: Warm, dry, noncyanotic without petechia, rash or ecchymosis. HEENT: Head is atraumatic, normocephalic. Eyes: PERRLA, EOMI. Sclerae nonicteric. No conjunctival injection. Nares are patent without rhinorrhea or discharge. Throat clear. Tongue midline. No buccal lesions or ulcerations. NECK: Supple without JVD or thyromegaly. HEART: Regular rate and rhythm. No clicks, rubs, murmurs or gallops. LUNGS: Clear to auscultation bilaterally. ABDOMEN: Soft, nontender, nondistended, without palpable hepatosplenomegaly. EXTREMITIES: No calf tenderness or swelling. No clubbing, cyanosis or edema. NEUROLOGICALLY: Awake, alert and oriented x3. Cranial nerves grossly intact. LABORATORY DATA: WBC count 1290, hemoglobin 11.3, platelet count 147,000, absolute neutrophil count 140. Sodium 141, potassium 3.1, chloride 107, carbon dioxide 25, creatinine 1, BUN 16, magnesium slightly decreased at 1.6, albumin slightly decreased at 3.3. RADIOGRAPHIC DATA: Chest x-ray, left upper lobe perihilar mass redemonstrated. Otherwise, no evidence of infiltrate. IMPRESSION: 1. Neutropenic fever. 2. Limited stage small cell lung cancer stage IIIA. 3. Hypertension. 4. Hypomagnesemia. 5. Hypoalbuminemia. PLAN: It was my pleasure to visit with the patient this morning at bedside. She came to [facility] yesterday with low grade fever, but no other constituted symptoms per se. She recently completed combination of etoposide and cisplatin along with radiation therapy. Appropriately, the primary service provided Neupogen 480 subQ on the night of admission. We will discuss regarding radiation therapy moving forward as we should allow her counts to recover. She is due to begin cycle #2 in about a week. Ortiz culture, maintain gram-negative coverage. It would appear that she has been afebrile since admission, so thus probably do not need to incorporate gram-positive coverage. Her MediPort was just recently installed and do not suspect colonization at this time. Correct her electrolytes and provide supportive care otherwise. We will continue to follow her periodically and make sure expedient followup is established for the patient. I have nothing further to add and agree with medical management otherwise.
--- NOTE | 2020-05-30 11:18 | Hospitalist Progress Note ---
Date of Service May 30, 2020 Assessment & Plan (1) Febrile neutropenia: Lori Tipton is a pleasant 52 yo female with a PMHx of stage IIIA small cell lung cancer (diagnosed March 2020), hypercholesterolemia, hypertension, GERD, restless leg syndrome, tobacco dependence, and depression, who presented to [facility] ER the evening of 05/29/2020 with complaints of an oral temperature of 101.8 F. Patient had also been experiencing acute chills and b/l lower extremity "achiness" but she was otherwise asymptomatic; no urinary symptoms, cough, SOB, CP, abdominal pain, nausea, or vomiting. She has completed the first course of chemotherapy with Dr. Olmos and is currently receiving radiation with Dr. Darby. Neutropenic Fever - On isolation precautions - Received Neupogen 480mcg subcutaneous x1 on 05/29/20 - Received cefepime 2g IV in ED - Vancomycin IV and Zosyn 4.5 g IV q8h -- Vancomycin discontinued today - Hypokalemia (3.1) and hypomagnesia (1.6) on labs this morning -- will replete with 40 mEq potassium po and total of 2g mag sulfate IV - Continue Tylenol 650mg q4h prn for fever/pain; Ibuprofen 600mg q6h prn for pain - Heating pad for back pain prn; no more than 20 minutes per session - Zofran 4mg IV q6h prn for nausea - Follow serial CBC w/ diff, BMP, and mag levels - UA negative; no urinary symptoms - Follow blood cultures and sensitivity - Multiple COVID-19 tests on 04/17/20, 04/28/20, and 05/22/20 -- all have been negative Small Cell Lung Cancer - Pt undergoing radiation daily with Dr. Darby - Completed first round of chemotherapy (etoposide and cisplatin) about 1.[address] Olmos - Dr. Olmos (oncologist) and Dr. Darby (radiation oncologist) consulted; appreciate their recommendations Hypertension - Hold home amlodipine 10mg po qAM - Hold home HCTZ 25mg po daily - Continue metoprolol succinate 100mg po qAM with hold parameters Hyperlipidemia - Continue simvastatin 20mg qhs - Continue fenofibrate 48mg qAM Depression - Continue olanzapine 2.5mg qhs GERD - Protonix 40mg po daily while admitted - Hold home omeprazole 20mg po daily Restless Leg Syndrome - Pt is currently not on any specific treatment - Will continue to monitor symptoms Hx of Tobacco Dependence - Pt with 40 pack year smoking hx - Quit smoking a couple days after lung cancer diagnosis DVT Prophylaxis: Heparin 5,000 units SQ q12h FEN: Regular diet Dispo: Isolation precautions on med floor Code: Full Code (2) Small cell lung cancer: (3) Depression: (4) Hypercholesterolemia: (5) Hypertension: (6) GERD (gastroesophageal reflux disease): (7) Restless leg syndrome: Admission and Anticipated Discharge Date Admission Date: May 29, 2020 Supervising Physician Co-Signing Physician Notes Patient seen and examined with PGY-1 Dr. Ray. Agree with history, exam findings, assessment and plan of care as outlined. In brief, Ms. Tipton is a 60 year old female with newly diagnosed small cell lung cancer, HTN, HLD, depression admitted with neutropenic fever. Has been afebrile since admission. She is s/p neupogen in the ED. Given cefepime in the ED, but switched to vanc and zosyn. Now on zosyn alone. CXR normal. Urine appears clean. Blood cultures pending. Appreciate heme onc and radiation oncology recom mendations. Of note, for HTN, holding home amlodipine and HCTZ and BPs on the lower end. Continued home metoprolol. Other home meds continued. Demian repleted. Dispo: pending clinical improvement and cultures. Domingo Tipton is a 60 yo female who initially presented to [facility] ER yesterday evening with concerns about fever. Patient is currently being treated with chemotherapy and radiation for newly diagnosed small cell lung cancer (diagnosed less than 2 months ago in March 2020). At approximately 1800 last night, patient had an acute onset of chills and lower extremity muscle cramps; she took her temperature with a digital thermometer, orally, and the temperature was 101.8 F. She was seen and evaluated at bedside this morning. Patient states that she overall feels well. She has remained afebrile since initial evaluation in the ED and throughout her admission thus far. Patient has no specific concerns at this time; she specifically denies fever, chills, chest pain, SOB, cough, abdominal pain, nausea, vomiting, urinary symptoms, leg pain, or leg swelling. She has been tolerating diet well without difficulty. Patient has been ambulating around her room without difficulty. Review of Systems Constitutional: no fever, no chills, no body aches and no weakness Respiratory: no cough and no dyspnea Cardiovascular: no chest pain Gastrointestinal: no abdominal pain, no nausea and no vomiting Genitourinary: no dysuria and no difficulty urinating Musculoskeletal: + back pain (patient attributes this to the hospital bed and not sleeping in her own bed); no swelling Neurologic: no headache(s) Physical Exam Physical Exam: GENERAL: No acute distress. Well developed and well nourished. Vital signs reviewed as above. A/O x3. HENT: Moist mucous membranes. RESPIRATORY: Clear to auscultation bilaterally. No wheezing, rales, or rhonchi. CARDIOVASCULAR: Regular rate and rhythm. No chest wall tenderness to palpation. 2/6 JORGE. ABDOMEN: Soft, non-tender and non-distended. No palpable masses. Normal bowel sounds. No flank tenderness to palpation with Jaden's punch bilaterally. MSK: There is some paraspinal sacral tenderness to palpation. No other lumbar or thoracic spinal or paraspinal tenderness to palpation. EXTREMITIES: No edema. Non-tender. SKIN: Warm, dry. No rashes or lesions. NEUROLOGIC: No focal neurological deficits. CN II-XII grossly intact, but not individually tested. PSYCHIATRIC: Cooperative. Appropriate mood and affect. Results & Data Results & Data ([facility]) Vital Signs (Past 12 Hours) Vital Signs Temp Pulse Pulse Pulse Resp BP BP 05/30/20 07:32 36.8 C 72 16 113/68 05/30/20 01:19 36.7 C 81 18 05/30/20 00:30 80 21 127/66 05/30/20 00:00 80 17 140/86 05/29/20 23:31 84 20 124/63 BP Pulse Ox 05/30/20 07:32 96 05/30/20 01:19 144/75 H 97 05/30/20 00:30 97 05/30/20 00:00 96 05/29/20 23:31 95
[2020-05-30] MEDS ORDERED: VANCOMYCIN HCL 1,000 MG in SODIUM CHLORIDE 0.9% 250 ML IV SCH (14:00)
[2020-05-30] MEDS: OLANZAPINE 2.5 MG TAB PO SCH (20:33)
[2020-05-30] MEDS: SIMVASTATIN 20 MG TAB PO SCH (20:33)
[2020-05-30] MEDS: IBUPROFEN 600 MG TAB PO PRN (22:15)
[2020-05-31] MEDS: PIPERACILLIN/TAZOBACTAM 4.5 GM in DEXTROSE 5% 100 ML IV SCH ×3 (04:57→19:03)
[2020-05-31] MEDS: ACETAMINOPHEN 325 MG TAB PO PRN (04:59)
[2020-05-31 05:47] LABS: Hematocrit (blood only) 34.3 % (37-47); Hemoglobin 11.8 g/dL (12.0-16.0); Mean Corpuscular Hemoglobin 29.7 pg (25-34); Mean Corpuscular Hgb Conc 34.4 g/dL (32-36); Mean Corpuscular Volume 86.4 fL (80-100); Mean Platelet Volume 9.8 fL (7.4-10.4); Platelet Count 165 K/uL (130-400); Red Blood Count 3.97 M/uL (4.2-5.4); White Blood Count 3.61 K/uL (4.8-10.8)
[2020-05-31 06:17] LABS: Albumin Level 3.1 gm/dl (3.4-5.0); BUN Creatinine Ratio 14.1 (10-20); Calcium 8.9 mg/dl (8.5-10.1); Creatinine Clr Calc Pharmacy 48.7 ml/min; Est GFR (Non-African American) 48.3; Potassium 3.5 mmol/L (3.5-5.1)
[2020-05-31 06:20] LABS: Albumin Globulin Ratio 0.8 (0.9-2); Bilirubin,Total 0.5 mg/dl (0.2-1); Globulin 3.7 gm/dl (2.5-4.0); Total Protein 6.8 gm/dl (6.4-8.2)
[2020-05-31 06:25] LABS: ALC (manual) 1.06 K/uL (1.2-3.4); ANC (manual) 1.96 K/uL (1.4-6.5); Basophils # (manual) 0.06 K/uL (0-0.2); Basophils % (manual) 1.7 %; Lymphocytes # (manual) 1.06 K/uL (1.2-3.4); Lymphocytes % (manual) 29.3 %; Metamyelocytes # (manual) 0.06 K/uL (0-0); Metamyelocytes % (manual) 1.7 %; Monocytes # (manual) 0.44 K/uL (0.11-0.59); Monocytes % (manual) 12.1 %; Myelocytes # (manual) 0.03 K/uL (0-0); Myelocytes % (manual) 0.9 %; Neutrophils # (manual) 1.96 K/uL (1.4-6.5); Neutrophils % (manual) 54.3 %
[2020-05-31 06:35] LABS: Partial Thromboplastin Time 27.6 Seconds (21.0-31.0); Prothrombin Time 10.6 Seconds (9.0-12.0)
[2020-05-31] MEDS: METOPROLOL SUCC 50MG EXT REL TAB PO SCH (08:50)
[2020-05-31] MEDS: PANTOprazole 40 MG TAB PO SCH (08:51)
[2020-05-31] MEDS: HEPARIN SOD 5,000 UNIT/0.5 ML VIAL SQ SCH ×2 (08:51→20:20)
[2020-05-31] MEDS: FENOFIBRATE NANOCRYSTALLIZED 48 MG TABLET PO SCH (08:51)
[2020-05-31] MEDS: IBUPROFEN 600 MG TAB PO PRN ×2 (10:25→19:02)
--- NOTE | 2020-05-31 17:56 | Hospitalist Progress Note ---
Date of Service May 31, 2020 Assessment & Plan (1) Febrile neutropenia: Lori Tipton is a pleasant 52 yo female with a PMHx of stage IIIA small cell lung cancer (diagnosed March 2020), hypercholesterolemia, hypertension, GERD, restless leg syndrome, tobacco dependence, and depression, who presented to [facility] ER the evening of 05/29/2020 with complaints of an oral temperature of 101.8 F. Patient had also been experiencing acute chills and b/l lower extremity "achiness" but she was otherwise asymptomatic; no urinary symptoms, cough, SOB, CP, abdominal pain, nausea, or vomiting. She has completed the first course of chemotherapy with Dr. Olmos and is currently receiving radiation with Dr. Darby. Neutropenic Fever - On isolation precautions - Received Neupogen 480mcg subcutaneous x1 on 05/29/20 - Received cefepime 2g IV in ED - Hypokalemia (3.1) and hypomagnesia (1.6) on labs 05/30, potassium and magnesium replaced, electrolyte abnormalities resolved on labs this morning - Vancomycin IV discontinued on 05/30 - Continue with Zosyn 4.5 g IV q8h - Continue Tylenol 650mg q4h prn for fever/pain; Ibuprofen 600mg q6h prn for pain - Heating pad for back pain prn; no more than 20 minutes per session - Zofran 4mg IV q6h prn for nausea - Follow serial CBC w/ diff, BMP, and mag levels - UA negative; no urinary symptoms - Follow blood cultures and sensitivity -- preliminary results negative at 24 hours -- Will plan to continue to monitor patient until results confirmed at 48 hours -- If patient remains asymptomatic and blood cultures remain negative, will plan to d/c patient home tomorrow morning - Multiple COVID-19 tests on 04/17/20, 04/28/20, and 05/22/20 -- all have been negative Small Cell Lung Cancer - Pt undergoing radiation daily with Dr. Darby - Completed first round of chemotherapy (etoposide and cisplatin) about 1.[address] Olmos - Dr. Olmos (oncologist) and Dr. Darby (radiation oncologist) consulted; appreciate their recommendations Hypertension - Hold home amlodipine 10mg po qAM - Hold home HCTZ 25mg po daily - Continue metoprolol succinate 100mg po qAM with hold parameters Hyperlipidemia - Continue simvastatin 20mg qhs - Continue fenofibrate 48mg qAM Depression - Continue olanzapine 2.5mg qhs GERD - Protonix 40mg po daily while admitted - Hold home omeprazole 20mg po daily Restless Leg Syndrome - Pt is currently not on any specific treatment - Will continue to monitor symptoms Hx of Tobacco Dependence - Pt with 40 pack year smoking hx - Quit smoking a couple days after lung cancer diagnosis DVT Prophylaxis: Heparin 5,000 units SQ q12h FEN: Regular diet Dispo: Isolation precautions on med floor Code: Full Code (2) Small cell lung cancer: (3) Depression: (4) Hypercholesterolemia: (5) Hypertension: (6) GERD (gastroesophageal reflux disease): (7) Restless leg syndrome: Admission and Anticipated Discharge Date Admission Date: May 29, 2020 Supervising Physician Co-Signing Physician Notes Patient seen and examined with PGY-1 Dr. Ray. Agree with history, exam findings, assessment and plan of care as outlined. In brief, Ms. Tipton is a 60 year old female with newly diagnosed small cell lung cancer, HTN, HLD, depression admitted with neutropenic fever. Has been afebrile since admission. She is s/p neupogen in the ED. Given cefepime in the ED, but switched to vanc and zosyn. Now on zosyn alone. CXR normal. Urine appears clean. Blood cultures negative x 24 hours. Appreciate heme onc and radiation oncology recommendations. Of note, for HTN, holding home amlodipine and HCTZ and BPs on the lower end. Continued home metoprolol. Other home meds continued. Demian repleted. Dispo: pending clinical improvement and cultures. Subjective Patient was seen and evaluated at bedside this morning. She states that she is overall doing well. Patient's previous complaint of back pain has been well controlled with Ibuprofen and the heating pad. She is eating well without difficulty. Patient has no specific concerns or questions today. She has remained afebrile. Patient denies chills, chest pain, shortness of breath, cough, abdominal pain, nausea, vomiting, dysuria, leg pain, or leg swelling. Review of Systems Constitutional: no fever, no chills and no body aches Respiratory: no cough and no dyspnea Cardiovascular: no chest pain Gastrointestinal: no abdominal pain, no nausea, no vomiting, no constipation and no diarrhea/loose stools Neurologic: no headache(s) Physical Exam Physical Exam: GENERAL: No acute distress. Well developed and well nourished. Vital signs reviewed as above. A/O x3. HENT: Moist mucous membranes. RESPIRATORY: Clear to auscultation bilaterally. No wheezing, rales, or rhonchi. CARDIOVASCULAR: Regular rate and rhythm. No chest wall tenderness to palpation. 2/6 JORGE. ABDOMEN: Soft, non-tender and non-distended. No palpable masses. Normal bowel sounds. EXTREMITIES: No edema. Non-tender. SKIN: Warm, dry. No rashes or lesions. NEUROLOGIC: No focal neurological deficits. CN II-XII grossly intact, but not individually tested. PSYCHIATRIC: Cooperative. Appropriate mood and affect. Results & Data Results & Data ([facility]) Vital Signs (Past 12 Hours) Vital Signs Temp Pulse Resp BP BP Pulse Ox 05/31/20 15:08 36.5 C 70 16 113/64 94 05/31/20 07:45 36.5 C 74 16 114/77 95
[2020-05-31] MEDS: SIMVASTATIN 20 MG TAB PO SCH (20:20)
[2020-05-31] MEDS: OLANZAPINE 2.5 MG TAB PO SCH (20:20)
[2020-05-31 23:25] VITALS: TEMP 97.9
[2020-06-01 06:21] LABS: Hematocrit (blood only) 34.5 % (37-47); Hemoglobin 11.4 g/dL (12.0-16.0); Mean Corpuscular Volume 87.8 fL (80-100); Mean Platelet Volume 9.6 fL (7.4-10.4); Platelet Count 215 K/uL (130-400); RDW Coefficient of Variation 13.3 % (11.5-14.5); RDW Standard Deviation 42.8 fL (36.4-46.3); Red Blood Count 3.93 M/uL (4.2-5.4); White Blood Count 6.52 K/uL (4.8-10.8)
[2020-06-01 06:33] LABS: Partial Thromboplastin Time 28.3 Seconds (21.0-31.0); Prothrombin Time 10.2 Seconds (9.0-12.0)
[2020-06-01 06:47] LABS: ALC (manual) 1.25 K/uL (1.2-3.4); ANC (manual) 4.09 K/uL (1.4-6.5); Dohle Bodies 2+; Eosinophils # (manual) 0.06 K/uL (0-0.5); Eosinophils % (manual) 0.9 %; Lymphocytes # (manual) 1.25 K/uL (1.2-3.4); Lymphocytes % (manual) 19.1 %; Metamyelocytes # (manual) 0.28 K/uL (0-0); Metamyelocytes % (manual) 4.3 %; Monocytes # (manual) 0.34 K/uL (0.11-0.59); Monocytes % (manual) 5.2 %; Myelocytes # (manual) 0.51 K/uL (0-0); Myelocytes % (manual) 7.8 %; Neutrophils # (manual) 4.09 K/uL (1.4-6.5); Neutrophils % (manual) 62.7 %
[2020-06-01 06:49] LABS: Albumin Level 3.1 gm/dl (3.4-5.0); BUN Creatinine Ratio 17.4 (10-20); Calcium 9.4 mg/dl (8.5-10.1); Creatinine Clr Calc Pharmacy 59.8 ml/min; Est GFR (African American) 71.9; Est GFR (Non-African American) 62.1; Magnesium 1.9 mg/dl (1.8-2.4); Potassium 3.6 mmol/L (3.5-5.1)
[2020-06-01 06:51] LABS: Albumin Globulin Ratio 0.8 (0.9-2); Bilirubin,Total 0.3 mg/dl (0.2-1); Globulin 3.7 gm/dl (2.5-4.0); Total Protein 6.8 gm/dl (6.4-8.2)
[2020-06-01 08:12] VITALS: BP 127/79; PULSE 80; O2SAT 94
[2020-06-01] MEDS: METOPROLOL SUCC 50MG EXT REL TAB PO SCH (09:49)
[2020-06-01] MEDS: FENOFIBRATE NANOCRYSTALLIZED 48 MG TABLET PO SCH (09:49)
[2020-06-01] MEDS: PANTOprazole 40 MG TAB PO SCH (09:50)
[2020-06-01] MEDS: HEPARIN SOD 5,000 UNIT/0.5 ML VIAL SQ SCH (09:53)
--- NOTE | 2020-06-01 11:55 | Discharge Summary ---
Date of Service June 01, 2020 Admission HPI Per Admitting Provider The patient is a 60-year-old female with a past medical history including small cell lung cancer, depression, hypercholesterolemia, hypertension, restless leg syndrome, tobacco abuse, GERD who was diagnosed with lung cancer in March 2020. She is undergoing daily radiation therapy with Dr. Darby, which has caused some [id number] swallowing discomfort, and has completed her first round of chemotherapy with Dr. Olmos. She developed a temperature of 101.6 F at 6 PM today, but has no specific symptoms. She has not had any recent travels or sick exposures. She has been COVID-19 test negative on 04/17/2020, 04/28/20 and 05/22/2020. Admission Exam Per Admitting Provider The patient is awake, alert and oriented 3, well developed and well nourished, normocephalic and atraumatic, lying in bed and in no acute distress. HEENT--PERRL, EOMI, mucous membranes and oropharynx dry. Neck--supple. No JVD. No bruits. Thyroid normal, trachea midline, no adenopathy. Heart--normal S1 and S2. No murmurs, rubs or gallops. Lungs--clear bilaterally, no respiratory distress, no accessory muscle use. Abdomen--normal bowel sounds and soft. Nontender. Nondistended. Extremities--no cyanosis or clubbing. No edema. Dermatologic--normal skin turgor, normal color, no abnormal lymph nodes, no rash. Neurologic--cranial nerves II through XII grossly intact. Rheumatologic--normal range of motion. Psychiatric--normal affect. Principal Diagnosis neutropenic fever Discharge Exam GENERAL: No acute distress. Well developed and well nourished. Vital signs reviewed as above. A/O x3. HENT: Moist mucous membranes. RESPIRATORY: Clear to auscultation bilaterally. No wheezing, rales, or rhonchi. CARDIOVASCULAR: Regular rate and rhythm. 2/6 JORGE. ABDOMEN: Soft, non-tender and non-distended. No palpable masses. Normal bowel sounds. EXTREMITIES: No edema. Non-tender. SKIN: Warm, dry. No rashes or lesions. NEUROLOGIC: No focal neurological deficits. CN II-XII grossly intact, but not individually tested. PSYCHIATRIC: Cooperative. Appropriate mood and affect. Discharge Data Allergies Allergy/AdvReac Type Severity Reaction Status Date / Time lisinopril AdvReac Mild Cough Verified 05/29/20 22:03 Consultations 05/29/20 23:10 ED Decision to Admit Stat 05/30/20 01:26 Consult Hematology Routine Consult Radiation Oncology Routine 05/30/20 01:31 Consult Case Management - Discharge Planning Routine Hospital Course (1) Febrile neutropenia: Lori Tipton is a pleasant 52 yo female with a PMHx of stage IIIA small cell lung cancer (diagnosed March 2020), hypercholesterolemia, hypertension, GERD, restless leg syndrome, tobacco dependence, and depression, who presented to [facility] [place] ER the evening of 05/29/2020 with complaints of an oral temperature of 101.8 F. Patient had also been experiencing acute chills and b/l lower extremity "achi ness" but she was otherwise asymptomatic; no urinary symptoms, cough, SOB, CP, abdominal pain, nausea, or vomiting. She has completed the first course of chemotherapy with Dr. Olmos and is currently receiving radiation with Dr. Darby. Upon evaluation today, patient states that she overall feels well and she is eager for discharge home. Patient has no acute complaints or concerns today. She denies fever, chills, chest pain, SOB, cough, abdominal pain, nausea, vomiting, leg pain, or leg swelling. Neutropenic Fever - Throughout stay, patient was on neutropenic precautions - Received Neupogen 480mcg subcutaneous x1 on 05/29/20 - Received cefepime 2g IV in ED - Hypokalemia (3.1) and hypomagnesia (1.6) on labs 05/30, potassium and magnesium replaced, electrolyte abnormalities resolved on labs - Tylenol 650mg q4h prn for fever/pain; Ibuprofen 600mg q6h prn for pain - Heating pad for back pain prn; no more than 20 minutes per session - Zofran 4mg IV q6h prn for nausea - UA negative; no urinary symptoms - Blood cultures x2 negative at 48 hours - Multiple COVID-19 tests on 04/17/20, 04/28/20, and 05/22/20 -- all have been negative - Vancomycin IV discontinued on 05/30 - Continued with Zosyn 4.5 g IV q8h until discharge -- No PO abx upon d/c due to clinical improvement, negative UA, and negative blood cultures Small Cell Lung Cancer - Pt undergoing radiation daily with Dr. Darby; she received the scheduled radiation while admitted - Completed first round of chemotherapy (etoposide and cisplatin) about 1.[address] Olmos - Dr. Olmos (oncologist) and Dr. Darby (radiation oncologist) consulted during hospital - We appreciate their recommendations Hypertension - During admission, home amlodipine 10mg po qAM and home HCTZ 25mg po daily were held - Continued metoprolol succinate 100mg po qAM with hold parameters - Advised patient to continue to hold the amlodipine and HCTZ; pt to ask for BP to be taken at radiation appointments; discuss HTN management with PCP as outpatient Hyperlipidemia - Continued simvastatin 20mg qhs - Continued fenofibrate 48mg qAM Depression - Continued olanzapine 2.5mg qhs GERD - Protonix 40mg po daily while admitted - Hold home omeprazole 20mg po daily - Will stop Protonix and restart home omeprazole 20mg po daily upon discharge Restless Leg Syndrome - Pt is currently not on any specific treatment Hx of Tobacco Dependence - Pt with 40 pack year smoking hx - Quit smoking a couple days after lung cancer diagnosis DVT Prophylaxis during hospital admission: Heparin 5,000 units SQ q12h FEN: Regular diet Dispo: HOME Code: Full Code (2) Small cell lung cancer: (3) Depression: (4) Hypercholesterolemia: (5) Hypertension: (6) GERD (gastroesophageal reflux disease): (7) Restless leg syndrome: Total Time Total Time Spent Total Time Spent (In Minutes): See attending attestation Discharge Plan Discharge Items Patient Disposition: Home - Self-Care Reason For Visit: NEUTROPENIC FEVER Discharge Diagnosis: neutropenic fever Condition on Discharge: Good Activity: Resume your previous activity Non-emergency contact: Primary Care Provider and Oncologist Call non-emergency contact if: you have any medication questions, your symptoms worsen and your temperature is above 101 Follow-up/Referrals: Jane Ortiz DO [Primary Care Provider] - Lucio Olmos DO [Physician] - 06/06/20 8:30 am Diet: Regular Addtl Attending Provider Instructions: Mrs. Tipton, It was our pleasure taking care of you at [facility] [place] from 05/29/2020 to 06/01/2020. You initially came to the ED with concerns of fever. Due to your current history of small cell lung cancer and chemotherapy/radiation with subsequent neutropenia (low neutrophil count, the cells that help to fight infection), this fever was called neutropenic fever. Neutropenic Fever - You received IV antibiotics throughout your hospital stay for empiric therapy. - Your urine did not show signs of infection. Your blood was cultured to look for infection as well and after 48 hours, the blood cultures remained negative. This is very good! - Your labs did show slightly low levels of potassium and magnesium, we repleted these electrolytes, and subsequent blood work showed that the levels were back to normal. - You received Tylenol and Ibuprofen for pain/fever control - You did not have a fever while you were in the hospital Small Cell Lung Cancer - Pt undergoing radiation daily with Dr. Darby - Completed first round of chemotherapy (etoposide and cisplatin) about 1.[address] Olmos - Dr. Olmos (oncologist) and Dr. Darby (radiation oncologist) were consulted during your stay and are aware of the hospitalization Hypertension - Continue your home Metoprolol succinate 100mg by mouth every morning - As we discussed, during your stay we held your home Amlodipine 10mg by mouth every morning and you home HCTZ 25mg by mouth every day - Please continue to HOLD the Amlodipine and HCTZ. Only take the Metoprolol for now. - Please ask for your blood pressure to be taken when you go to your radiation treatments and follow up with your primary care doctor for further blood pressure management Hyperlipidemia - Continue you home medications: simvastatin 20mg by mouth every night and fenofibrate 48mg by mouth every morning Depression - Continue your home olanzapine 2.5mg by mouth every evening GERD - Continue your home omeprazole 20mg by mouth daily Pending Studies at Discharge: No Stand-Alone Forms: My [facility] [employer], Smoking Cessation Medications and DC Order Prescriptions: Continued simvastatin 20 mg tablet 20 mg PO HS Qty: 90 RF: 3 omeprazole 20 mg capsule,delayed release(DR/EC) 20 mg PO DAILY PRN (Reason: Acid Reflux) RF: 0 ondansetron HCl 8 mg tablet 8 mg PO DAILY PRN (Reason: Nausea) RF: 0 prochlorperazine maleate 10 mg tablet 10 mg PO Q6H PRN (Reason: Nausea) RF: 0 olanzapine 2.5 mg tablet 2.5 mg PO HS RF: 0 acetaminophen 500 mg Tablet 1,000 mg PO Q6H PRN (Reason: Fever Or Pain) RF: 0 metoprolol succinate 100 mg tablet extended release 24 hr 100 mg PO QAM RF: 0 fenofibrate nanocrystallized 48 mg tablet 48 mg PO QAM RF: 0 Discontinued amlodipine 10 mg tablet 10 mg PO QAM RF: 0 hydrochlorothiazide 25 mg tablet 25 mg PO QAM RF: 0 Discharge Orders: Discharge Order (Routine); Ordered 06/01/20 Ordered By: Lauren Shannon Admission Data Admit Date/Time: 05/29/20 23:50 Attending Provider: Micheal Zurita Admit Provider: Yon Acuna Primary Care Provider: Jane Ortiz Other Providers: Yon Acuna ; Lucio Olmos V. ; Kayla Darby Other Interventions: Discharge Summary Assessment (RN) Last Done: 06/01/20 10:16 Supervising Physician Co-Signing Physician Notes Patient seen and examined with PGY-1 Dr. Ray. Agree with history, exam fin dings, assessment and plan of care as outlined. In brief, Ms. Tipton is a 60 year old female with newly diagnosed small cell lung cancer, HTN, HLD, depression admitted with neutropenic fever. Has been afebrile since admission. She is s/p neupogen in the ED. Given cefepime in the ED, but switched to vanc and zosyn. Now on zosyn alone. CXR normal. Urine culture with no growth. Blood cultures negative x 48 hours. Has been afebrile during hospital stay. Appreciate heme onc and radiation oncology recommendations. Of note, for HTN, holding home amlodipine and HCTZ and BPs on the lower end. Continued home metoprolol only on discharge. Follow up with PCP for BP management and resumption of amlodipine and HCTZ. Other home meds continued. Demian repleted. Dispo: discharge home today. Does not require additional antibiotics. I personally spent 25 minutes discharge planning for this patient.
== END 2020-06-01 13:15 | disposition home or self-care (01) | DRG 809 ==
LOC: ED 21:05 → SUATTDRO 23:50 → 3E 23:50

== ENCOUNTER 2020-07-06 13:56 | Inpatient (IN) ==
[2020-07-06] MEDS ORDERED: GI COCKTAIL ED USE PO ONE (14:16)
[2020-07-06] MEDS ORDERED: ONDANSETRON INJ 2 MG/ML 2 ML VIAL IV STA (14:17)
[2020-07-06] MEDS ORDERED: PANTOprazole 40 MG in SYRINGE 0 ML IV ONE (14:17)
--- NOTE | 2020-07-06 14:25 | Emergency Department Note ---
Impression & Plan Chest pain, Pain on swallowing, Neutropenia ED Provider Note NAME: NELLY PAINTER AGE: 60 SEX: F : 1960 ARRIVES VIA: Walk-In INFORMANT: Patient, ED PROVIDER(S): Leon Freedman DO CHIEF COMPLAINT: Chest pain HPI: The patient is a 60-year-old female who has a history of small cell lung cancer who presented to the emergency department with chest pain. The patient describes a burning sensation in her retrosternal region. She states has been ongoing over the entire weekend. She states the pain is much worsened with any eating or drinking. She is unable to swallow any food or drink. She has had radiation to this area because of her cancer treatment regimen. She states that she called her oncologist and was treated with medication previously for this but she is unable to eat or drink or keep any food or drink down she has intense pain as well as vomiting after trying to swallow. She states she has no leg swelling. She has no leg pain. She states the pain is not exertional. She states the pain is almost entirely worsened with food as well as drink. She did not see her family doctor for the symptoms. She states the pain is mild to moderate at this time and worsens with any swallowing including her secretions. ROS: See above HPI for pertinent positives & negatives. A total of 10 systems reviewed and were otherwise negative. PAST MEDICAL HISTORY: See Below PAST SURGICAL HISTORY: See Below FAMILY HISTORY: See Below SOCIAL HISTORY: See Below HOME MEDICATIONS: See Below ALLERGIES: See Below VITALS: See Below PHYSICAL EXAMINATION: GENERAL: Patient is awake alert in no acute distress patient is resting comfortably and showing no signs of anxiety EYES: The conjunctivae are clear. The pupils are round and reactive. EARS, NOSE, MOUTH AND THROAT: The nose is without any evidence of any deformity. Mucous membranes are dry. NECK: The neck is nontender and supple. RESPIRATORY: Normal respiratory effort is noted there is no evidence of wheezing rhonchi or rales CARDIOVASCULAR: Tachycardic rate with regular rhythm was noted. There is no definite murmur. GASTROINTESTINAL: The abdomen is soft. Abdomen is nontender. MUSCULOSKELETAL/EXTREMITIES: There is no evidence of gross deformity full range of motion is noted in the hips and shoulders. SKIN: There is no obvious evidence of any rash. There are no petechiae, pallor or cyanosis noted. NEUROLOGIC: Patient is awake alert and oriented x3 strength is symmetric patellar reflexes are 2+ bilaterally MEDICAL DECISION MAKING: The patient is a 81-year-old female who presented to the emergency department for an evaluation of chest pain. The patient has a history of recent c hemotherapy as well as radiation. It does appear that the patient is having some pain that I think is secondary to her radiation. Because of this she has been unable to eat or drink. She appears to be somewhat dehydrated. She presented today because she was very concerned that she may require further work-up including work-up for cardiac as well as pulmonary sources for chest pain. She has a history of lung cancer. Her D-dimer was positive. For this reason CT the chest was obtained to further evaluate the cause of her symptoms. I discussed patient's laboratory and radiographic studies with her. She was treated with pain medication IV fluids and GI cocktail. She still had continued significant pain. For this reason I discussed her case with the on-call [facility] hospitalist. Triage Nursing notes reviewed. Prior medical records reviewed Vital Signs: reviewed and remarkable for elevated blood pressure Differential diagnosis: Cardiac ischemia, aortic dissection, pulmonary embolism, pneumothorax, pneumonia, pericarditis, myocarditis, esophageal rupture, GERD, cholecystitis, pancreatitis, musculoskeletal, as well as other pathologies. ER treatment provided: See below Diagnostics interpreted by me: ECG: EKG was obtained in the emergency department. My interpretation is normal sinus rhythm at 70 bpm. There was no ectopy. There was no acute ST segment abnormalities noted. This was compared to a tracing from May 222019. No significant changes were noted. Cardiac Monitoring: An order was placed for continuous cardiac monitoring. The monitor shows a rate of 75 bpm with sinus rhythm. Laboratory studies: As stated above and show below. Imaging studies: See below Consultation(s): I discussed this case with the on-call [facility] hospitalist. Past Med/Surg History Medical History Arthritis Bilat Knees & lower back Depression GERD (gastroesophageal reflux disease) Hypercholesterolemia Hypertension Restless leg syndrome Small cell lung cancer (04/21/20) Diagnosed 04/21/2020 Surgical History H/O arthroscopic knee surgery 1998 RIGHT/ 2010 LEFT H/O tubal ligation 1991 H/O: section x2 1987 & 1982 History of bronchoscopy (04/21/20) 04/21/2020 - with positive biopsy History of excision of pilonidal cyst 1987 History of tooth extraction molars Port-A-Cath in place (05/25/20) Insertion of Mediport Left Subclavian with Fluoroscopy Dr. Ramos 05/25/2020 S/P carpal tunnel release 1989's / 2014 LEFT S/P tonsillectomy Age 4 Family History Mother , Passed age 64 of pancreatic cancer Hypertension Cancer Father Hearing loss Grandmother (Maternal) , Passed age 79 of Stomach Cancer No problems noted. Uncle , Passed in 80's of Colorectal Cancer No problems noted. Brother No problems noted. Brother No problems noted. Sister No problems noted. Grandfather (Maternal) , Passed age 89 of Bladder Cancer No problems noted. Son No problems noted. Daughter No problems noted. Grandmother Cancer Grandfather Cancer Other No family history of allergies No family history of bleeding disorder Denies family history of Ovarian cancer Heart disease Breast cancer Lung cancer Asthma Social History Smoking Status: Former smoker Tobacco Type: Cigarettes Age Started Using Tobacco: 20; Age Quit Using Tobacco: 60; packs per day: 1; Cigarettes Per Day: 1 pack; Smoking End Date: March 2020; Second Hand Exposure: No; Do You Dip or Chew Tobacco: No; Tobacco Cessation Education Requested by Patient: No Hx Alcohol Use: No Hx Substance Use: No Preferred Language: Bengali Communication Ability: Effective Visual Impairment: No Limitations Hearing Ability: Normal Regional Psychiatric Director Required: No Beliefs That Will Affect Care: None marital status: Current Living Situation: Spouse current occupational status: employed 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 How many Children do You have: 2 Other Information That Helps Us Care for You: No Feels Safe at Home: Yes Safety Concerns: Feels Safe At This Time Childhood Exposure to Second-Hand Smoke: Yes caffeine: Yes (ice tea) during the past year weight has: remained stable Dental Care, Regularly: Yes Physical Activity Frequency: Does not Exercise Seatbelt Use: always Sunscreen Use: No Assistive Devices: None Allergies Allergies Allergy/AdvReac Type Severity Reaction Status Date / Time lisinopril AdvReac Mild Cough Verified 07/06/20 15:52 Home Meds Home Medications Medication Instructions Recorded Confirmed ondansetron HCl 8 mg PO DAILY PRN 05/29/20 07/06/20 prochlorperazine maleate 10 mg PO Q6H PRN 05/29/20 07/06/20 Previous Rx's Medication Instructions Recorded sucralfate 1 gram tablet 1 g PO Q6H #120 tab 06/12/20 fenofibrate nanocrystallized 48 mg 48 mg PO QAM #90 tab 06/13/20 tablet metoprolol succinate 100 mg 100 mg PO QAM #90 tab 06/13/20 tablet,extended release 24 hr simvastatin 20 mg tablet 20 mg PO HS #90 tab 06/13/20 hydrocodone 7.5 mg-acetaminophen 15 ml PO Q6H PRN #473 ml 06/19/20 325 mg/15 mL oral solution omeprazole 20 mg capsule,delayed 20 mg PO DAILY PRN #30 cap 06/28/20 release Results & Data (ED) Vital Signs Vital Signs - 24 hr 07/06/20 13:58 07/06/20 15:39 07/06/20 16:00 Temperature 36.9 C Temperature Source Oral Pulse Rate 113 H 70 67 Pulse Rate from SpO2 Sensor 69 70 Respiratory Rate 18 19 20 Respiratory Effort / Characteristics Non-Labored Spontaneous Respiratory Depth Normal Respiratory Pattern Regular Blood Pressure 134/82 144/73 H 160/77 H Blood Pressure Mean 99 88 110 Blood Pressure Position Sitting Pulse Oximetry 95 97 97 Oxygen Delivery Method Room Air Room Air Room Air Sepsis Recent Fever Within 48 Hours No Sepsis New/Unexplained Change in Mental Status N/A Sepsis Action Taken by Nursing No Action Required 07/06/20 16:30 07/06/20 17:00 07/06/20 17:30 Temperature Temperature Source Pulse Rate 75 69 64 Pulse Rate from SpO2 Sensor 75 69 64 Respiratory Rate 17 12 16 Respiratory Effort / Characteristics Respiratory Depth Respiratory Pattern Blood Pressure 164/85 H 164/83 H 180/91 H Blood Pressure Mean 120 114 133 Blood Pressure Position Pulse Oximetry 96 95 96 Oxygen Delivery Method Room Air Room Air Room Air Sepsis Recent Fever Within 48 Hours Sepsis New/Unexplained Change in Mental Status Sepsis Action Taken by Nursing 07/06/20 18:01 Temperature Temperature Source Pulse Rate 70 Pulse Rate from SpO2 Sensor 69 Respiratory Rate 25 H Respiratory Effort / Characteristics Respiratory Depth Respiratory Pattern Blood Pressure 167/81 H Blood Pressure Mean 115 Blood Pressure Position Pulse Oximetry 97 Oxygen Delivery Method Room Air Sepsis Recent Fever Within 48 Hours Sepsis New/Unexplained Change in Mental Status Sepsis Action Taken by Alf Medications Current Medication List: was personally reviewed by me Laboratory Data Attestation: I reviewed the patient's lab results. Result diagrams: 07/06/20 14:35 07/06/20 14:35 Lab Results 07/06/20 07/06/20 07/06/20 Range/Units 14:35 14:35 14:35 WBC 0.80 L* (4.8-10.8) K/uL RBC 3.05 L (4.2-5.4) M/uL Hgb 9.2 L (12.0-16.0) g/dL Hct 26.4 L (37-47) % MCV 86.6 (80-100) fL MCH 30.2 (25-34) pg MCHC 34.8 (32-36) g/dL RDW Std Deviation 45.0 (36.4-46.3) fL RDW Coeff of Sebastián 14.6 H (11.5-14.5) % Plt Count 52 L (130-400) K/uL MPV 10.5 H (7.4-10.4) fL Immature Gran % (Auto) 0.0 % Neut % (Auto) 23.6 % Lymph % (Auto) 33.8 % [place] % (Auto) 38.8 % Eos % (Auto) 1.3 % Baso % (Auto) 2.5 % Neut # (Auto) 0.19 L* (1.4-6.5) K/uL Lymph # (Auto) 0.27 L (1.2-3.4) K/uL [place] # (Auto) 0.31 (0.11-0.59) K/uL Eos # (Auto) 0.01 (0-0.5) K/uL Baso # (Auto) 0.02 (0-0.2) K/uL Immature Gran # (Auto) 0.00 (0.00-0.02) K/uL PT 12.4 H (9.0-12.0) Seconds INR 1.2 H (0.9-1.1) APTT 25.6 (21.0-31.0) Seconds PTT Ratio 0.9 D-Dimer 3200 H* (0-500) ug/L FEU Sodium 139 (136-145) mmol/L Potassium 3.2 L (3.5-5.1) mmol/L Chloride 102 (98-107) mmol/L Carbon Dioxide 26 (21-32) mmol/L Anion Gap 11.0 (3-11) BUN 34 H (7-18) mg/dl Creatinine 1.32 H (0.6-1.2) mg/dl Est Cr Clr Drug Dosing 42.8 ml/min Est GFR ( Amer) 51.4 Est GFR (Non-Af Amer) 44.4 BUN/Creatinine Ratio 26.1 H (10-20) Glucose 102 H (70-99) mg/dl Calcium 10.2 H (8.5-10.1) mg/dl Total Bilirubin 0.9 (0.2-1) mg/dl AST 10 L (15-37) U/L ALT 21 (12-78) U/L Alkaline Phosphatase 71 (45-117) U/L Troponin I < 0.015 (0-0.045) ng/ml Total Protein 6.4 (6.4-8.2) gm/dl Albumin 3.6 (3.4-5.0) gm/dl Globulin 2.8 (2.5-4.0) gm/dl Albumin/Globulin Ratio 1.3 (0.9-2) Lipase 67 L (73-393) U/L Administered Medications Nitroglycerin (Nitroglycerin 2% Ointment 30gm Tube) 1 inch EXT Q6H DELANEY Stop: 08/05/20 18:59 Last Admin: 07/06/20 19:10 Dose: 1 inch Documented by: [id number] Discontinued Medications Al Hydrox/Mg Hydrox/Simethicone (Gi Cocktail Ed Use) 1 dose PO ONE ONE Stop: 07/06/20 14:17 Last Admin: 07/06/20 15:21 Dose: 1 dose Documented by: [id number] Sodium Chloride (Nss 1000ml) 1,000 mls @ 999 mls/hr IV .Q1H1M DELANEY Stop: 07/06/20 15:30 Last Infusion: 07/06/20 16:34 Dose: 0 mls/hr Documented by: [id number] Admin: 07/06/20 15:29 Dose: 999 mls/hr Documented by: [id number] Pantoprazole Sodium 40 mg/ (Syringe) 10 mls @ 5 mls/min IV NOW ONE Stop: 07/06/20 14:18 Last Admin: 07/06/20 15:29 Dose: 5 mls/min Documented by: [id number] Sodium Chloride (Nss 1000ml) 1,000 mls @ 999 mls/hr IV .Q1H1M ONE Stop: 07/06/20 18:14 Last Infusion: 07/06/20 18:05 Dose: 0 mls/hr Documented by: [id number] Admin: 07/06/20 17:18 Dose: 999 mls/hr Documented by: [id number] Ioversol (Optiray 320 125ml) 119 ml IV ONCE ONE Stop: 07/06/20 16:24 Last Admin: 07/06/20 16:23 Dose: 119 ml Documented by: [id number] Nitroglycerin (Nitroglycerin Sl 0.4 Mg/Tab Tab) 0.4 mg SL NOW STA Stop: 07/06/20 18:38 Last Admin: 07/06/20 18:49 Dose: 0.4 mg Documented by: [id number] Ondansetron HCl (Ondansetron Inj 2 Mg/Ml 2 Ml Vial) 4 mg IV NOW STA Stop: 07/06/20 14:18 Last Admin: 07/06/20 15:29 Dose: 4 mg Documented by: [id number] Imaging Data Radiologist's Impression: Patient: NELLY PAINTER AAdmit Date: 07/06/20 MR#: [id number]: [address] [place] [address] Acct ID:[id number]: Date: [address] [place] [address] Zip: [place] [address] Age: 60Location: ED Sex: FRoom/Bed: Att Phy:Diagnosis: CANCER PT, DEHYDRATED, CHEST PRESSURE Nesha Phy: Jane Ortiz, DOService Date: 07/06/20 Fam Phy:Interpreting Phy: Festus Torres Admit Phy: Ordering Phy: Leon Freedman DO cc: ~ CT angio chest PE protocol CT DOSE: 391.26 mGy.cm HISTORY: 60 years-old Female with PE. 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 TECHNIQUE: Multiple CTA images of the chest were obtained after the intravenous administration of 119 ml Optiray 320. Coronal and sagittal MIPS were obtained from the axial data set and were submitted for review. All measurements were obtained according to NASCET criteria. A dose lowering technique was utilized adhering to the principles of ALARA. COMPARISON: PET CT 04/26/2020, chest CT 04/14/2020. FINDINGS: CTA: Heart is normal in size. Left subclavian Bbgfkm-m-Asjm catheter distal tip terminates within the proximal SVC. Moderate coronary artery calcifications. No pericardial effusion. There is no thoracic aortic aneurysm or dissection. Mild mixed plaque of the thoracic aorta. The pulmonary tree all tree is opacified to level of the subsegmental branches and demonstrates no filling defects to suggest thromboembolic disease. CT CHEST: Unremarkable thyroid. There are no pathologically enlarged lymph nodes identified.. No pneumothorax or pleural effusion. Moderate emphysema. Decreased size of the left upper lobe mass with spiculated margins measuring 3.0 x 1.7 cm, previously measured at 6.1 x 3.9 cm. Linear midlung opacities are suggestive of posttreatment related changes. Mild bilateral bronchial wall thickening. 3 mm subpleural nodule of the left lower lobe, image 145 series 4 is unchanged. 3 mm solid nodule of the left lower lobe, image 162 series 4 is also stable. Central airways are patent. No acute process of the imaged upper abdomen. Soft tissues are unremarkable. Bones appear intact. There are no suspicious bone lesions. IMPRESSION: 1. No evidence of pulmonary thromboembolic disease. 2. Moderate emphysema with bronchial wall thickening suggestive of reactive airway disease or bronchitis. 3. Decreased size of the left upper lobe pleural-based mass compatible with positive treatment response, now measuring 3.0 x 1.7 cm. 4. No pathologically enlarged lymph nodes. 5. No pleural effusion or airspace consolidation to suggest pneumonia. ACT 112: Negative or not required by law. The above report was generated using voice recognition software. It may contain grammatical, syntax or spelling errors. Electronically signed by: Kofi Torres M.D. 07/06/2020 4:48 PM Dictated: 07/06/201640 Transcribed: 07/06/201640 Patient: NELLY PAINTER AAdmit Date: 07/06/20 MR#: [id number]: [address] [place] [address] Acct ID:[id number]: [facility] Zip[facility] [place] [address] Age: 60Location: ED Sex: FRoom/Bed: Att Phy:Diagnosis: CANCER PT, DEHYDRATED, CHEST PRESSURE Nesha Phy: Jane OrtizAnna, DOService Date: 07/06/20 Fam Phy:Interpreting Phy: Festus Torres Admit Phy: Ordering Phy: Leon Feredman, DO cc: ~ XR chest 1V portable HISTORY: 60 years-old Female Chest Pain acute atypical chest pain COMPARISON: Chest radiograph 05/29/2020, PET CT 04/26/2020 TECHNIQUE: Portable AP view of the chest FINDINGS: Cardiac silhouette is normal. Left upper lobe/perihilar mass redemonstrated which appears to have mildly decreased in size. Left subclavian Waoxfw-g-Fzej catheter distal tip terminates in the rectum location of the brachycephalic SVC confluence. No pneumothorax, pleural effusion or overt pulmonary edema. Bones appear grossly intact. IMPRESSION: 1. No acute process. 2. Left upper lobe/perihilar mass redemonstrated. ACT 112: Negative or not required by law. The above report was generated using voice recognition software. It may contain grammatical, syntax or spelling errors. Electronically signed by: Kofi Torres M.D. 07/06/2020 2:59 PM Dictated: 07/06/201456 Transcribed: 07/06/201456 Blood Pressure Blood Pressure Findings: Elevated blood pressure Blood Pressure Disposition: further management by hospitalist Discharge Plan Visit Data Chief Complaint: Dehydration Stated Complaint: CANCER PT, DEHYDRATED, CHEST PRESSURE ED Provider: Leon Freedman Discharge Problem: Chest pain, Pain on swallowing, Neutropenia Patient Disposition: Admitted As Inpatient Condition: Good Discharge Instructions Interventions: ED Discharge Assessment Last Done: 07/06/20 19:24
[2020-07-06] MEDS ORDERED: SODIUM CHLORIDE 0.9% 1000ML 1,000 ML IV SCH (14:30)
--- NOTE | 2020-07-06 15:00 | XRay Report ---
XR chest 1V portable HISTORY: 60 years-old Female Chest Pain acute atypical chest pain COMPARISON: Chest radiograph 05/29/2020, PET CT 04/26/2020 TECHNIQUE: Portable AP view of the chest FINDINGS: Cardiac silhouette is normal. Left upper lobe/perihilar mass redemonstrated which appears to have mil dly decreased in size. Left subclavian Ynrvog-a-Ukpr catheter distal tip terminates in the rectum loc ation of the brachycephalic SVC confluence. No pneumothorax, pleural effusion or overt pulmonary kris a. Bones appear grossly intact. IMPRESSION: 1. No acute process. 2. Left upper lobe/perihilar mass redemonstrated. ACT 112: Negative or not required by law. The above report was generated using voice recognition software. It may contain grammatical, syntax o r spelling errors. Electronically signed by: Kofi Torres M.D. 07/06/2020 2:59 PM
[2020-07-06 15:06] LABS: Alanine Aminotransferase 21 U/L (12-78); Albumin Level 3.6 gm/dl (3.4-5.0); Aspartate Aminotransferase 10 U/L (15-37); BUN Creatinine Ratio 26.1 (10-20); Blood Urea Nitrogen 34 mg/dl (7-18); Calcium 10.2 mg/dl (8.5-10.1); Carbon Dioxide 26 mmol/L (21-32); Chloride 102 mmol/L (98-107); Creatinine Clr Calc Pharmacy 42.8 ml/min; Est GFR (African American) 51.4; Est GFR (Non-African American) 44.4; Glucose 102 mg/dl (70-99); INR 1.2 (0.9-1.1); Lipase 67 U/L (73-393); Partial Thromboplastin Ratio 0.9; Partial Thromboplastin Time 25.6 Seconds (21.0-31.0); Potassium 3.2 mmol/L (3.5-5.1); Prothrombin Time 12.4 Seconds (9.0-12.0); Sodium 139 mmol/L (136-145)
[2020-07-06 15:10] LABS: Hematocrit (blood only) 26.4 % (37-47); Hemoglobin 9.2 g/dL (12.0-16.0); Mean Corpuscular Hemoglobin 30.2 pg (25-34); Mean Corpuscular Hgb Conc 34.8 g/dL (32-36); Mean Corpuscular Volume 86.6 fL (80-100); Mean Platelet Volume 10.5 fL (7.4-10.4); RDW Coefficient of Variation 14.6 % (11.5-14.5); Red Blood Count 3.05 M/uL (4.2-5.4)
[2020-07-06 15:11] LABS: Albumin Globulin Ratio 1.3 (0.9-2); Alkaline Phosphatase 71 U/L (45-117); Bilirubin,Total 0.9 mg/dl (0.2-1); Globulin 2.8 gm/dl (2.5-4.0); Total Protein 6.4 gm/dl (6.4-8.2); Troponin I < 0.015 ng/ml (0-0.045)
[2020-07-06 15:12] LABS: Basophils # (auto) 0.02 K/uL (0-0.2); Basophils % (auto) 2.5 %; Eosinophils # (auto) 0.01 K/uL (0-0.5); Eosinophils % (auto) 1.3 %; Lymphocytes # (auto) 0.27 K/uL (1.2-3.4); Lymphocytes % (auto) 33.8 %; Monocytes # (auto) 0.31 K/uL (0.11-0.59); Monocytes % (auto) 38.8 %; Neutrophils # (auto) 0.19 K/uL (1.4-6.5); Neutrophils % (auto) 23.6 %
[2020-07-06 15:25] LABS: Platelet Count 52 K/uL (130-400)
[2020-07-06 15:33] LABS: D Dimer 3200 ug/L FEU (0-500)
[2020-07-06] MEDS ORDERED: OPTIRAY 320 125ml IV ONE (16:23)
--- NOTE | 2020-07-06 16:49 | CT Scan Report ---
CT angio chest PE protocol CT DOSE: 391.26 mGy.cm HISTORY: 60 years-old Female with PE. Acute shortness of breath Follow-up study in a patient with hi story of left upper lobe mass with lymphatic metastasis. TECHNIQUE: Multiple CTA images of the chest were obtained after the intravenous administration of 119 ml Optiray 320. Coronal and sagittal MIPS were obtained from the axial data set and were submitted for review. All measurements were obtained according to NASCET criteria. A dose lowering technique w as utilized adhering to the principles of ALARA. COMPARISON: PET CT 04/26/2020, chest CT 04/14/2020. FINDINGS: CTA: Heart is normal in size. Left subclavian Mklcsu-f-Fvyi catheter distal tip terminates within the prox imal SVC. Moderate coronary artery calcifications. No pericardial effusion. There is no thoracic aort ic aneurysm or dissection. Mild mixed plaque of the thoracic aorta. The pulmonary tree all tree is op acified to level of the subsegmental branches and demonstrates no filling defects to suggest thromboe mbolic disease. CT CHEST: Unremarkable thyroid. There are no pathologically enlarged lymph nodes identified.. No pneumothorax o r pleural effusion. Moderate emphysema. Decreased size of the left upper lobe mass with spiculated ma rgins measuring 3.0 x 1.7 cm, previously measured at 6.1 x 3.9 cm. Linear midlung opacities are sugge stive of posttreatment related changes. Mild bilateral bronchial wall thickening. 3 mm subpleural nod ule of the left lower lobe, image 145 series 4 is unchanged. 3 mm solid nodule of the left lower lobe , image 162 series 4 is also stable. Central airways are patent. No acute process of the imaged upper abdomen. Soft tissues are unremarkable. Bones appear intact. The re are no suspicious bone lesions. IMPRESSION: 1. No evidence of pulmonary thromboembolic disease. 2. Moderate emphysema with bronchial wall thickening suggestive of reactive airway disease or bronchi tis. 3. Decreased size of the left upper lobe pleural-based mass compatible with positive treatment respon se, now measuring 3.0 x 1.7 cm. 4. No pathologically enlarged lymph nodes. 5. No pleural effusion or airspace consolidation to suggest pneumonia. ACT 112: Negative or not required by law. The above report was generated using voice recognition software. It may contain grammatical, syntax o r spelling errors. Electronically signed by: Kofi Torres M.D. 07/06/2020 4:48 PM
[2020-07-06] MEDS ORDERED: SODIUM CHLORIDE 0.9% 1000ML 1,000 ML IV ONE (17:14)
--- NOTE | 2020-07-06 18:27 | History & Physical Report ---
Date of Service July 06, 2020 Assessment & Plan (1) Chest pain: GI cocktail effective but temporary Suspect having esophageal spasms ? Secondary to esophageal thrush, radiation esophagitis, achalasia, esophageal stenosis Nitroglycerin 0.4 mg sublingual for esophageal spasm - if helpful will prescribe patch No oropharyngeal thrush however she has been using Magic mouthwash possibly treating her upper esophagus Pantoprazole IV 40 mg twice daily Consult GI for consideration of EGD versus barium swallow (2) Odynophagia: See chest pain above (3) Acute dehydration: D5W + 0.5NSS + 40 meq KCl @ 125 ml/hr (4) Small cell lung cancer: Finished radiation. Ongoing chemotherapy with cisplatin/etoposide (5) Antineoplastic chemotherapy induced pancytopenia: Expected fede of treatment today/tomorrow. Likely reason why she is feeling extremely fatigued at present, in addition to the poor oral intake. (6) Restless leg syndrome: (7) GERD (gastroesophageal reflux disease): Switch omeprazole to IV pantoprazole as above (8) Depression: (9) Hypertension: Continue metoprolol succinate with home parameters Admission and Anticipated Discharge Date Admission Date: 07/06/2020 History of Present Illness Chief Complaint: Odynophagia Primary Care Provider: DO Lori Brothers Saeed is a 60-year-old female who presents to the ER with odynophagia/chest pain. She reports this has been ongoing for months after starting her chemoradiation for small cell lung cancer but has been getting gradually progressively worse during this time. Previously her odynophagia has been blamed on her radiation therapy which finished on Friday and she was told that she should stop progressively getting better since then. Unfortunately this is any worse and she has been unable to have any oral intake other than hot tea. She describes a constant pain that is there all the time on her lower chest, no worse on palpation, severity 4/10, no radiation, not pleuritic, significantly worse with any oral intake. She has an additional intermittent severe 10/10 cramping pain which also appears to come on with oral intake. Associated nausea but no vomiting. Significant weight loss since starting chemotherapy. Her chemotherapy is ongoing, last dose 1 week ago. No change in bowel movements. Allergies Allergy/AdvReac Type Severity Reaction Status Date / Time lisinopril AdvReac Mild Cough Verified 07/06/20 15:52 Home Medications Home Medications Medication Instructions Recorded Confirmed Type ondansetron HCl 8 mg PO DAILY PRN 05/29/20 07/06/20 History prochlorperazine maleate 10 mg PO Q6H PRN 05/29/20 07/06/20 History sucralfate 1 gram tablet 1 g PO Q6H #120 tab 06/12/20 07/06/20 Rx fenofibrate nanocrystallized 48 mg 48 mg PO QAM #90 tab 06/13/20 07/06/20 Rx tablet metoprolol succinate 100 mg 100 mg PO QAM #90 tab 06/13/20 07/06/20 Rx tablet,extended release 24 hr simvastatin 20 mg tablet 20 mg PO HS #90 tab 06/13/20 07/06/20 Rx hydrocodone 7.5 mg-acetaminophen 15 ml PO Q6H PRN #473 ml 06/19/20 07/06/20 Rx 325 mg/15 mL oral solution omeprazole 20 mg capsule,delayed 20 mg PO DAILY PRN #30 cap 06/28/20 07/06/20 Rx release Past Med/Surg History Medical History Arthritis Bilat Knees & lower back Depression GERD (gastroesophageal reflux disease) Hypercholesterolemia Hypertension Restless leg syndrome Small cell lung cancer (04/21/20) Diagnosed 04/21/2020 Surgical History H/O arthroscopic knee surgery 1998 RIGHT/ 2010 LEFT H/O tubal ligation 1991 H/O: section x2 1987 & 1982 History of bronchoscopy (04/21/20) 04/21/2020 - with positive biopsy History of excision of pilonidal cyst 1987 History of tooth extraction molars Port-A-Cath in place (05/25/20) Insertion of Mediport Left Subclavian with Fluoroscopy Dr. Ramos 05/25/2020 S/P carpal tunnel release 1989's RT / 2014 LEFT S/P tonsillectomy Age 4 Family History Mother , Passed age 64 of pancreatic cancer Hypertension Cancer Father Hearing loss Grandmother (Maternal) , Passed age 79 of Stomach Cancer No problems noted. Uncle , Passed in 80's of Colorectal Cancer No problems noted. Brother No problems noted. Brother No problems noted. Sister No problems noted. Grandfather (Maternal) , Passed age 89 of Bladder Cancer No problems noted. Son No problems noted. Daughter No problems noted. Grandmother Cancer Grandfather Cancer Other No family history of allergies No family history of bleeding disorder Denies family history of Ovarian cancer Heart disease Breast cancer Lung cancer Asthma Social History Smoking Status: Former smoker Tobacco Type: Cigarettes Age Started Using Tobacco: 20; Age Quit Using Tobacco: 60; packs per day: 1; Cigarettes Per Day: 1 pack; Smoking End Date: March 2020; Second Hand Exposure: No; Do You Dip or Chew Tobacco: No; Tobacco Cessation Education Requested by Patient: No Hx Alcohol Use: No Hx Substance Use: No Preferred Language: French Communication Ability: Effective Visual Impairment: No Limitations Hearing Ability: Normal Alteration Specialist Required: No Beliefs That Will Affect Care: None marital status: Current Living Situation: Spouse current occupational status: employed 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 How many Children do You have: 2 Other Information That Helps Us Care for You: No Feels Safe at Home: Yes Safety Concerns: Feels Safe At This Time Childhood Exposure to Second-Hand Smoke: Yes caffeine: Yes (ice tea) during the past year weight has: remained stable Dental Care, Regularly: Yes Physical Activity Frequency: Does not Exercise Seatbelt Use: always Sunscreen Use: No Assistive Devices: None Review of Systems Review of Systems: All systems reviewed & are unremarkable except as noted in HPI & below Physical Exam Constitutional: well developed, + cachectic and + frail appearing; + not well nourished and no acute distress Eyes: + anicteric sclerae; normal pupil size ENMT: external ear and nose normal, oropharynx normal (No oral thrush present) Neck: trachea midline, no thyromegaly Respiratory: normal respiratory effort, lungs clear to auscultation Cardiovascular: RRR, no murmur, no edema Chest (Breasts): Additional Comments: No pain on palpation over the lateral chest wall Gastrointestinal (Abdomen): normal bowel sounds, soft, nontender, no hepatosplenomegaly Musculoskeletal: no cyanosis or clubbing, extremities motor strength 5/5 Skin: no rashes, warm and dry Neurologic: moves all extremities and awake; no focal motor deficits and not confused Speech / Cognition: normal speech Psychiatric: A+Ox3, euthymic affect Genitourinary: no CVA tenderness Results & Data Results & Data ([facility]) Vital Signs (Past 12 Hours) Vital Signs Temp Pulse Resp BP Pulse Ox 07/06/20 17:00 69 12 164/83 H 95 07/06/20 16:30 75 17 164/85 H 96 07/06/20 16:00 67 20 160/77 H 97 07/06/20 15:39 70 19 144/73 H 97 07/06/20 13:58 36.9 C 113 H 18 134/82 95 Diagnostic Findings XR chest 1V portable IMPRESSION: 1. No acute process. 2. Left upper lobe/perihilar mass redemonstrated. CT angio chest PE protocol IMPRESSION: 1. No evidence of pulmonary thromboembolic disease. 2. Moderate emphysema with bronchial wall thickening suggestive of reactive airway disease or bronchitis. 3. Decreased size of the left upper lobe pleural-based mass compatible with positive treatment response, now measuring 3.0 x 1.7 cm. 4. No pathologically enlarged lymph nodes. 5. No pleural effusion or airspace consolidation to suggest pneumonia. ECG Indication: chest pain Rate (beats per minute): 70 Rhythm: normal sinus Findings: no acute ischemic change Comparison ECG Date: from (May 22 2020) Change: no significant change Code Status & VTE Plan Code Status DNR/DNI per patient wishes VTE Prophylaxis Plan VTE Prophylaxis will be ordered: Yes PG Care Time/CCT Total # of Minutes Spent Total Time Spent with Patient: Total time spent is greater than 50% in coordination of care (as documented) at patient's floor/unit and/or counseling patient: Coding Level of Care Code 26272 Initial Inpt Care Lvl 3 Diagnoses Chest pain R07.9 Odynophagia R13.10 Acute dehydration E86.0 Small cell lung cancer C34.90 Antineoplastic chemotherapy induced pancytopenia D61.810; T45.1X5A Restless leg syndrome G25.81 GERD (gastroesophageal reflux disease) K21.9 Depression F32.9 Hypertension I10
[2020-07-06] MEDS ORDERED: NITROGLYCERIN SL 0.4 MG/TAB TAB SL STA (18:37)
[2020-07-06] MEDS: NITROGLYCERIN 2% OINTMENT 30GM TUBE EXT SCH (19:10)
[2020-07-06] MEDS ORDERED: PROCHLORPERAZINE MALEATE 10 MG TAB PO PRN (19:47)
[2020-07-06] MEDS ORDERED: ACETAMINOPHEN 325 MG TAB PO PRN (19:47)
[2020-07-06] MEDS ORDERED: ONDANSETRON 4 MG OD TAB PO PRN (19:51)
[2020-07-06] MEDS: PANTOprazole 40 MG in SYRINGE 0 ML IV SCH (21:55)
[2020-07-06] MEDS: ALUMINUM/MAGNESIUM SUSP 72 ML, LIDOCAINE HCL VISCOUS 2% 24 ML, BARCODE IDENTIFIER 1 EA PO PRN (21:56)
[2020-07-06] MEDS: POTASSIUM CHLORIDE 40 MEQ in D5W AND 1/2NSS 1,000 ML/1,000 ML BAG IV SCH (21:56)
[2020-07-06] MEDS: SUCRALFATE 1 GM TAB PO SCH (22:05)
[2020-07-06] MEDS: SIMVASTATIN 20 MG TAB PO SCH (22:05)
[2020-07-07] MEDS: NITROGLYCERIN 2% OINTMENT 30GM TUBE EXT SCH ×5 (01:28→22:09)
[2020-07-07] MEDS: POTASSIUM CHLORIDE 40 MEQ in D5W AND 1/2NSS 1,000 ML/1,000 ML BAG IV SCH ×2 (05:27→16:15)
[2020-07-07] MEDS: SUCRALFATE 1 GM TAB PO SCH ×4 (05:49→20:00)
--- NOTE | 2020-07-07 06:11 | Electrocardiogram Report ---
Test Reason : Blood Pressure : / mmHG Vent. Rate : 070 BPM Atrial Rate : 070 BPM P-R Int : 172 ms QRS Dur : 088 ms QT Int : 392 ms P-R-T Axes : 068 047 057 degrees QTc Int : 423 ms Normal sinus rhythm Normal ECG When compared with ECG of 22-MAY-2020 09:42, No significant change was found Confirmed by Jordi Tobias ([id number]) on 07/07/2020 6:10:58 AM Referred By: REFERRED SELF Confirmed By:Jordi Tobias
[2020-07-07] MEDS: METOPROLOL SUCC 50MG EXT REL TAB PO SCH (08:41)
[2020-07-07] MEDS: FENOFIBRATE NANOCRYSTALLIZED 48 MG TABLET PO SCH (08:41)
[2020-07-07] MEDS: PANTOprazole 40 MG in SYRINGE 0 ML IV SCH ×2 (08:55→20:08)
--- NOTE | 2020-07-07 09:23 | Anesthesiology Consultation ---
Date of Service July 07, 2020 Assessment & Plan (1) Encounter for pre-operative examination: Chart Review Chart Review: Acceptable Risk for Surgery Consults Requested none ASA ASA3 Proposed Anesthesia Anesthesia Type: MAC Risk / Benefits Reviewed With: PT / POA / Parent / Guardian, Accepts Plan and Informed Consent Obtained History Surgery Operation Date: 07/07/20 17:00 Proposed Procedures p Esophagogastroduodenoscopy Dr. Wall - Arturo Wall MD Height/Weight Height: 5 ft 2 in Weight: 72.9 kg Allergies Allergy/AdvReac Type Severity Reaction Status Date / Time lisinopril AdvReac Mild Cough Verified 07/06/20 15:52 Medications Home Medications Medication Instructions Recorded Confirmed Last Taken ondansetron HCl 8 mg PO DAILY PRN 05/29/20 07/06/20 Unknown prochlorperazine maleate 10 mg PO Q6H PRN 05/29/20 07/06/20 Unknown sucralfate 1 gram tablet 1 g PO Q6H #120 tab 06/12/20 07/06/20 Unknown fenofibrate nanocrystallized 48 mg 48 mg PO QAM #90 tab 06/13/20 07/06/20 Unknown tablet metoprolol succinate 100 mg 100 mg PO QAM #90 tab 06/13/20 07/06/20 Unknown tablet,extended release 24 hr simvastatin 20 mg tablet 20 mg PO HS #90 tab 06/13/20 07/06/20 Unknown hydrocodone 7.5 mg-acetaminophen 15 ml PO Q6H PRN #473 ml 06/19/20 07/06/20 Unknown 325 mg/15 mL oral solution omeprazole 20 mg capsule,delayed 20 mg PO DAILY PRN #30 cap 06/28/20 07/06/20 Unknown release Active Medications Generic Name Dose Route Start Last Admin Trade Name Freq PRN Reason Stop Dose Admin Hydrocodone Bitart/Acetaminophen 15 ml 07/06/20 19:53 07/07/20 08:55 Acetaminophen/Hydrocodone Elix 15 Ml/Cup Udp PO 07/20/20 19:52 15 ml Q6H PRN Administration esophagitis Al Hydrox/Mg Hydrox/ 0 ml 07/06/20 20:42 07/06/20 21:56 Simethicone 72 ml/ Lidocaine PO 08/05/20 20:41 24 ml HCl 24 ml/ BARCODE IDENTIFIER Q8H PRN Administration 1 ea odynophagia Fenofibrate 48 mg 07/07/20 09:00 07/07/20 08:41 Fenofibrate Nanocrystallized 48 Mg Tablet PO 08/06/20 08:59 Not Given QAM DELANEY Heparin Sodium (Porcine) 5 ml 07/06/20 22:53 07/07/20 11:28 Heparin 100 Unit/Ml 5ml Flush FLUSH 08/05/20 22:52 5 ml PRN PRN Administration Flush Pantoprazole Sodium 40 mg/ 10 mls @ 5 mls/min 07/06/20 21:00 07/07/20 08:55 Syringe IV 08/05/20 20:59 5 mls/min BID DELANEY Administration Potassium Chloride 40 meq/ 1,000 ml in 1,020 mls @ 125 mls/hr 07/06/20 21:45 07/07/20 05:27 Dextrose/Sodium Chloride IV 08/05/20 21:44 125 mls/hr .Q8H10M DELANEY Administration Metoprolol Succinate 100 mg 07/07/20 09:00 07/07/20 08:41 Metoprolol Succ 50mg Ext Rel Tab PO 08/06/20 08:59 Not Given QAM DELANEY Nitroglycerin 1 inch 07/06/20 19:00 07/07/20 05:49 Nitroglycerin 2% Ointment 30gm Tube EXT 08/05/20 18:59 1 inch Q6H DELANEY Administration Simvastatin 20 mg 07/06/20 21:00 07/06/20 22:05 Simvastatin 20 Mg Tab PO 08/05/20 20:59 Not Given HS DELANEY Sucralfate 1 gm 07/06/20 21:00 07/07/20 05:49 Sucralfate 1 Gm Tab PO 08/05/20 20:59 1 gm ACHS DELANEY Administration Past Medical History Medical History Arthritis Bilat Knees & lower back Depression GERD (gastroesophageal reflux disease) Hypercholesterolemia Hypertension Restless leg syndrome Small cell lung cancer (04/21/20) Diagnosed 04/21/2020 Exercise / Class Metabolic Activity III < 4 Walking/Shop/Light housework Past Family History Family History Mother , Passed age 64 of pancreatic cancer Hypertension Cancer Father Hearing loss Grandmother (Maternal) , Passed age 79 of Stomach Cancer No problems noted. Uncle , Passed in 80's of Colorectal Cancer No problems noted. Brother No problems noted. Brother No problems noted. Sister No problems noted. Grandfather (Maternal) , Passed age 89 of Bladder Cancer No problems noted. Son No problems noted. Daughter No problems noted. Grandmother Cancer Grandfather Cancer Other No family history of allergies No family history of bleeding disorder Denies family history of Ovarian cancer Heart disease Breast cancer Lung cancer Asthma Past Surgical History Surgical History H/O arthroscopic knee surgery 1998 RIGHT/ 2010 LEFT H/O tubal ligation 1991 H/O: section x2 1987 & 1982 History of bronchoscopy (04/21/20) 04/21/2020 - with positive biopsy History of excision of pilonidal cyst 1987 History of tooth extraction molars Port-A-Cath in place (05/25/20) Insertion of Mediport Left Subclavian with Fluoroscopy Dr. Ramos 05/25/2020 S/P carpal tunnel release 1989's RT / 2014 LEFT S/P tonsillectomy Age 4 Past Anesthesia History No Hx of Anesthesia Complications and No Family Hx of Anesthesia Complications History of PONV No Hx of PONV and No Hx of Motion Sickness Social History Smoking Status: Former smoker tobacco type: cigarettes Smoking cigarettes per day: 1 pack Do You Dip or Chew Tobacco: No Smoking End Date: March 2020 Hx Alcohol Use: No Alcohol type: wine alcohol intake frequency: holidays/special occasions only Hx Substance Use: No substance use type: does not use Physical Exam Vital Signs Last Vital Signs Temp 98.2 F 07/07/20 11:49 Pulse 69 07/07/20 11:49 Resp 20 07/07/20 11:49 BP 144/72 H 07/07/20 11:49 Pulse Ox 96 07/07/20 11:49 ENMT Mouth: no dentition abnormality Thyromental Distance: > or= 3.5 Finger Breadths Mallampati Class: II Neck normal visual inspection Respiratory normal respiratory effort Auscultation: lungs clear to auscultation bilaterally Cardiovascular Rate/Rhythm: regular rate and regular rhythm Testing Laboratory Results 07/06/20 14:35 07/06/20 14:35 PT 12.4 Seconds (9.0-12.0) H 07/06/20 14:35 INR 1.2 (0.9-1.1) H 07/06/20 14:35 APTT 25.6 Seconds (21.0-31.0) 07/06/20 14:35 Electrocardiogram Date: 07/06/20 Findings: + NSR @ (70 bpm) Chest X-Ray Date: 07/06/20 FINDINGS: Cardiac silhouette is normal. Left upper lobe/perihilar mass redemonstrated which appears to have mildly decreased in size. Left subclavian Ojdbub-e-Guvi catheter distal tip terminates in the rectum location of the brachycephalic SVC confluence. No pneumothorax, pleural effusion or overt pulmonary edema. Bones appear grossly intact. IMPRESSION: 1. No acute process. 2. Left upper lobe/perihilar mass redemonstrated.
[2020-07-07] MEDS ORDERED: METOCLOPRAMIDE HCL INJ 5 MG/ML 2 ML VIAL IV STA (09:40)
--- NOTE | 2020-07-07 10:04 | Gastrointestinal Consultation ---
Date of Consultation July 07, 2020 Assessment & Plan (1) Pain on swallowing: (2) Chest pain: 1. NPO for now. 2. Reglan 10 mg IV x 1. 3. EGD with Dr. Wall today. 4. Continue Pantoprazole 40 mg IV BID. 5. Additional recommendations pending results of testing. Supervising Physician Co-Signing Physician Notes I personally evaluated the patient and agree with the findings as documented by VALE Ly Exam: abd: soft, nt, nd Proceed with EGD. risks/benefits and procedure discussed with patient, who agrees to proceed History of Present Illness Reason for Consultation: Odynophagia Requesting Physician: Dr. Valadez Attending Physician: Marky Ardon MD History of Present Illness Patient is a pleasant 60 year-old female with a history of non small cell lung cancer currently undergoing both chemo and radiation treatments (although she reports she just completed her last radiation). She states that for the past week, she has been having very painful swallowing that has worsened despite the completion of her radiation treatment. She states he is unable to swallow solids or liquids due to the severe pain. She has been having ongoing nausea with occasional vomiting. No melena or hematemesis. Denies any abdominal pain. She has been made NPO and COVID-[address] GUM SPRAYER swab was [address] Wall has ordered an EGD today for further evaluation. She was given a GI cocktail with only temporary benefit. Remains on Protonix 40 mg BID. Allergies Allergy/AdvReac Type Severity Reaction Status Date / Time lisinopril AdvReac Mild Cough Verified 07/06/20 15:52 Home Medications Home Medications Medication Instructions Recorded Confirmed Type ondansetron HCl 8 mg PO DAILY PRN 05/29/20 07/06/20 History prochlorperazine maleate 10 mg PO Q6H PRN 05/29/20 07/06/20 History sucralfate 1 gram tablet 1 g PO Q6H #120 tab 06/12/20 07/06/20 Rx fenofibrate nanocrystallized 48 mg 48 mg PO QAM #90 tab 06/13/20 07/06/20 Rx tablet metoprolol succinate 100 mg 100 mg PO QAM #90 tab 06/13/20 07/06/20 Rx tablet,extended release 24 hr simvastatin 20 mg tablet 20 mg PO HS #90 tab 06/13/20 07/06/20 Rx hydrocodone 7.5 mg-acetaminophen 15 ml PO Q6H PRN #473 ml 06/19/20 07/06/20 Rx 325 mg/15 mL oral solution omeprazole 20 mg capsule,delayed 20 mg PO DAILY PRN #30 cap 06/28/20 07/06/20 Rx release Patient History Medical History Arthritis Bilat Knees & lower back Depression GERD (gastroesophageal reflux disease) Hypercholesterolemia Hypertension Restless leg syndrome Small cell lung cancer (04/21/20) Diagnosed 04/21/2020 Surgical History H/O arthroscopic knee surgery 1998 RIGHT/ 2010 LEFT H/O tubal ligation 1991 H/O: section x2 1987 & 1982 History of bronchoscopy (04/21/20) 04/21/2020 - with positive biopsy History of excision of pilonidal cyst 1987 History of tooth extraction molars Port-A-Cath in place (05/25/20) Insertion of Mediport Left Subclavian with Fluoroscopy Dr. Ramos 05/25/2020 S/P carpal tunnel release 1989's / 2014 LEFT S/P tonsillectomy Age 4 Family History Mother , Passed age 64 of pancreatic cancer Hypertension Cancer Father Hearing loss Grandmother (Maternal) , Passed age 79 of Stomach Cancer No problems noted. Uncle , Passed in 80's of Colorectal Cancer No problems noted. Brother No problems noted. Brother No problems noted. Sister No problems noted. Grandfather (Maternal) , Passed age 89 of Bladder Cancer No problems noted. Son No problems noted. Daughter No problems noted. Grandmother Cancer Grandfather Cancer Other No family history of allergies No family history of bleeding disorder Denies family history of Ovarian cancer Heart disease Breast cancer Lung cancer Asthma Social History Smoking Status: Former smoker Tobacco Type: Cigarettes Age Started Using Tobacco: 20; Age Quit Using Tobacco: 60; packs per day: 1; Cigarettes Per Day: 1 pack; Smoking End Date: March 2020; Second Hand Exposure: No; Do You Dip or Chew Tobacco: No; Tobacco Cessation Education Requested by Patient: No Hx Alcohol Use: No Hx Substance Use: No Preferred Language: Mauritian Communication Ability: Effective Visual Impairment: No Limitations Hearing Ability: Normal Redevelopment Specialist Required: No Beliefs That Will Affect Care: None marital status: Current Living Situation: Spouse current occupational status: employed 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 How many Children do You have: 2 Other Information That Helps Us Care for You: No Feels Safe at Home: Yes Safety Concerns: Feels Safe At This Time Childhood Exposure to Second-Hand Smoke: Yes caffeine: Yes (ice tea) during the past year weight has: remained stable Dental Care, Regularly: Yes Physical Activity Frequency: Does not Exercise Seatbelt Use: always Sunscreen Use: No Assistive Devices: None Review of Systems Review of Systems: All systems reviewed & are unremarkable except as noted in HPI & below Physical Exam Constitutional: WD/WN, vitals as above well developed and well nourished Eyes: EOM intact bilaterally Neck: normal visual inspection Respiratory: normal respiratory effort, lungs clear to auscultation Cardiovascular: Rate/Rhythm: regular rate and regular rhythm Gastrointestinal (Abdomen): normal bowel sounds, soft, nontender, no hepatosplenomegaly Musculoskeletal: Extremities: extremities normal to inspection Psychiatric: A+Ox3, euthymic affect Results & Data ([facility]) Vital Signs (Past 12 Hours) Vital Signs Temp Pulse Resp BP Pulse Ox 07/07/20 07:28 36.6 C 80 16 142/70 H 95 07/07/20 05:49 36.5 C 67 16 133/72 93 07/07/20 01:29 36.7 C 76 18 150/74 H 96 07/06/20 23:49 36.7 C 66 16 137/71 93 Laboratory Results Abnormal lab results 07/06/20 07/06/20 07/06/20 Range/Units 14:35 14:35 14:35 WBC 0.80 L* (4.8-10.8) K/uL RBC 3.05 L (4.2-5.4) M/uL Hgb 9.2 L (12.0-16.0) g/dL Hct 26.4 L (37-47) % RDW Coeff of Sebastián 14.6 H (11.5-14.5) % Plt Count 52 L (130-400) K/uL MPV 10.5 H (7.4-10.4) fL Neut # (Auto) 0.19 L* (1.4-6.5) K/uL Lymph # (Auto) 0.27 L (1.2-3.4) K/uL PT 12.4 H (9.0-12.0) Seconds INR 1.2 H (0.9-1.1) D-Dimer 3200 H* (0-500) ug/L FEU Potassium 3.2 L (3.5-5.1) mmol/L BUN 34 H (7-18) mg/dl Creatinine 1.32 H (0.6-1.2) mg/dl BUN/Creatinine Ratio 26.1 H (10-20) Glucose 102 H (70-99) mg/dl Calcium 10.2 H (8.5-10.1) mg/dl AST 10 L (15-37) U/L Lipase 67 L (73-393) U/L PG Care Time/CCT Total # of Minutes Spent Total Time Spent with Patient: Total time spent is greater than 50% in coordination of care (as documented) at patient's floor/unit and/or counseling patient: Coding Level of Care Code 00326 Inpt Consult Level 4 Diagnoses Pain on swallowing R13.10 Chest pain R07.9 Chest pain type: unspecified (1) Chest pain Chest pain type: unspecified Qualified Code(s): R07.9 - Chest pain, unspecified
[2020-07-07] MEDS: HEPARIN 100 UNIT/ML 5ML FLUSH FLUSH PRN ×2 (11:28→13:17)
--- NOTE | 2020-07-07 11:35 | Hospitalist Progress Note ---
Date of Service July 07, 2020 Assessment & Plan (1) Chest pain: Really more epigastric in nature rather than chest pain. GI cocktail possibly effective, but patient feels less so today. - Suspect having esophageal spasms given the nature of her pain (episodic, acute-onset, severe, sharp); possibly secondary to esophageal thrush, radiation esophagitis, achalasia, esophageal stenosis. - Seems better on her nitroglycerin patch. - Consulted GI - Plan for EGD today. (2) JOSE ANTONIO (acute kidney injury): Baseline Cr ~1.0. Up to 1.6 due to dehydration as outpatient. - Cr presently 1.3. - Continue IV fluids; likely prerenal. (3) Odynophagia: As above. (4) Small cell lung cancer: Follows with Dr. Olmos. Presently on cisplatin/etoposide Q21d. Last doses were last week (~06/27 & 06/30 from oncology notes). Today (07/07) is C3D11. - Discussed with Dr. Olmos on 07/07; will monitor and put in consult if any acute changes - Support WBCs, hgb, etc. (5) Antineoplastic chemotherapy induced pancytopenia: Neutropenic with ANC 200. Due to chemotherapy last week. - Neutropenic precautions - Transfuse for hgb > 8. (6) Hypertension: BP is presently 140/70. - Will consider adjusting medication to help with spasm (7) Restless leg syndrome: None noted today. - Monitor (8) GERD (gastroesophageal reflux disease): May be contributing to aspect of epigastric pain. - Continue PPI IV BID (9) Depression: No overt symptoms today on interview. - Monitor (10) DVT prophylaxis: SCDs - Hold heparin for low platelets Admission and Anticipated Discharge Date Admission Date: July 06, 2020 Subjective No pain at present, but reports she has had several episodes while here in the hospital. Reports no fevers/chills, chest pain, shortness of breath, nausea, or vomiting. Physical Exam Constitutional: WD/WN, vitals as above Eyes: EOM intact bilaterally; no conjunctival abnormality ENMT: external ear and nose normal, oropharynx normal Neck: trachea midline, no thyromegaly normal visual inspection Respiratory: normal respiratory effort, lungs clear to auscultation no respiratory distress Cardiovascular: RRR, no murmur, no edema Gastrointestinal (Abdomen): Inspection/Auscultation: abdomen normal to inspection; abdomen not distended Musculoskeletal: no cyanosis or clubbing, extremities motor strength 5/5 Skin: no rashes, warm and dry Neurologic: moves all extremities and awake Psychiatric: Orientation: alert, oriented to person and cooperative Results & Data Results & Data ([facility]) Vital Signs (Past 12 Hours) Vital Signs Temp Pulse Resp BP Pulse Ox 07/07/20 07:28 36.6 C 80 16 142/70 H 95 07/07/20 05:49 36.5 C 67 16 133/72 93 07/07/20 01:29 36.7 C 76 18 150/74 H 96 07/06/20 23:49 36.7 C 66 16 137/71 93 PG Care Time/CCT Total # of Minutes Spent Total Time Spent with Patient: Total time spent is greater than 50% in coordination of care (as documented) at patient's floor/unit and/or counseling patient: Coding Level of Care Code 17680 Subseq Hosp Care Lvl 3 Diagnoses Chest pain R07.9 JOSE ANTONIO (acute kidney injury) N17.9 Odynophagia R13.10 Small cell lung cancer C34.90 Antineoplastic chemotherapy induced pancytopenia D61.810; T45.1X5A Hypertension I10 Restless leg syndrome G25.81 GERD (gastroesophageal reflux disease) K21.9 Depression F32.9 DVT prophylaxis Z29.9
[2020-07-07] MEDS ORDERED: FILGRASTIM 480 MCG/1.6 ML VIAL SQ ONE (12:30)
[2020-07-07] MEDS ORDERED: PROPOFOL IV EMULSION 10 MG/ML 20 ML VIAL IV ONE (12:52)
[2020-07-07] MEDS ORDERED: LIDOCAINE HCL 2% 2 ML VIAL/AMP(20MG/ML) INFIL ONE (12:52)
--- NOTE | 2020-07-07 12:52 | GI REPORT ---
Patient Name: Lori Tipton Procedure Date: 07/07/2020 12:27 PM Date of : 1960 Admit Type: Inpatient Age: 60 Gender: Female Attending MD: Arturo Wall MD Procedure: Upper GI endoscopy Providers: Arturo Wall MD Referring MD: Referred Self Indications: Dysphagia, Odynophagia Medicines: Monitored Anesthesia Care Complications: No immediate complications. Estimated blood loss: None. Estimated Blood Loss: Estimated blood loss: none. Procedure: Pre-Anesthesia Assessment: - Prior Anticoagulants: The patient has taken no previous anticoagulant or antiplatelet agents. - ASA Grade Assessment: II - A patient with mild systemic disease. After obtaining informed consent, the endoscope was passed under direct vision. Throughout the procedure, the patient's blood pressure, pulse, and oxygen saturations were monitored continuously. The Endoscope was introduced through the mouth, and advanced to the second part of duodenum. The upper GI endoscopy was accomplished without difficulty. The patient tolerated the procedure well. Findings: Moderately severe esophagitis with no bleeding was found. Biopsies were taken with a cold forceps for histology from the proximal and distal esophagus. Estimated blood loss: none. No evidence of stricture, marcelo. The entire examined stomach was normal. The duodenal bulb and second portion of the duodenum were normal. Impression: - Moderately severe radiation esophagitis. Biopsied. - Normal stomach. - Normal duodenal bulb and second portion of the duodenum. Recommendation: - Return patient to [facility] for [facility] care. - Clear liquid diet today. - Await pathology results. -start carafate liquid 5 mL QID - start protonix 40 mg IV daily while inpatient, then po as outpatient. Arturo Wall MD 07/07/2020 12:51:38 PM This report has been signed electronically. Note Initiated On: 07/07/2020 12:27 PM Number of Addenda: 0 I attest to the content of the Intraoperative Record and orders documented therein, exceptions below {[id number]}
--- NOTE | 2020-07-07 13:36 | Anesthesiology Progress Note ---
Date of Service July 07, 2020 Anesthesia Post Procedure Vital Signs Vital Signs: Temp Pulse Pulse Resp BP BP Pulse Ox 07/07/20 13:19 70 16 136/73 97 07/07/20 13:06 70 16 146/80 H 96 07/07/20 12:51 80 16 139/67 97 07/07/20 11:49 98.2 F 69 20 144/72 H 96 07/07/20 07:28 97.9 F 80 16 142/70 H 95 07/07/20 05:49 97.7 F 67 16 133/72 93 07/07/20 01:29 98.1 F 76 18 150/74 H 96 07/06/20 23:49 98.1 F 66 16 137/71 93 07/06/20 19:48 98.1 F 73 19 143/83 H 97 07/06/20 18:52 76 17 128/80 97 07/06/20 18:51 73 19 175/107 H 97 07/06/20 18:31 73 19 179/85 H 97 07/06/20 18:01 70 25 H 167/81 H 97 07/06/20 17:30 64 16 180/91 H 96 07/06/20 17:00 69 12 164/83 H 95 07/06/20 16:30 75 17 164/85 H 96 07/06/20 16:00 67 20 160/77 H 97 07/06/20 15:39 70 19 144/73 H 97 07/06/20 13:58 98.4 F 113 H 18 134/82 95 Pain Intensity Chest: Pain Intensity: 3 Throat: Pain Intensity: 3 Transfer of Care Handoff Completed per policy Notes Mental Status: alert / awake / arousable and participated in evaluation Patient Amnestic to Procedure: Yes Nausea / Vomiting: adequately controlled Pain: adequately controlled Airway Patency, RR, SpO2: stable & adequate BP & HR: stable & adequate Hydration State: stable & adequate Anesthetic Complications: no major complications apparent and Pt Satisfied with anesthetic care
[2020-07-07 14:17] LABS: Hematocrit (blood only) 21.9 % (37-47); Hemoglobin 7.6 g/dL (12.0-16.0); Mean Corpuscular Hgb Conc 34.7 g/dL (32-36); Mean Corpuscular Volume 86.6 fL (80-100); RDW Coefficient of Variation 14.7 % (11.5-14.5); RDW Standard Deviation 45.6 fL (36.4-46.3); Red Blood Count 2.53 M/uL (4.2-5.4); White Blood Count 2.06 K/uL (4.8-10.8)
[2020-07-07 14:37] LABS: Mean Platelet Volume 10.1 fL (7.4-10.4); Platelet Count 32 K/uL (130-400)
[2020-07-07 14:57] LABS: BUN Creatinine Ratio 17.6 (10-20); Calcium 8.8 mg/dl (8.5-10.1); Creatinine Clr Calc Pharmacy 61.6 ml/min; Est GFR (African American) 78.5; Est GFR (Non-African American) 67.7; Potassium 3.4 mmol/L (3.5-5.1)
[2020-07-07 15:14] LABS: ALC (manual) 0.47 K/uL (1.2-3.4); ANC (manual) 1.06 K/uL (1.4-6.5); Basophils # (manual) 0.14 K/uL (0-0.2); Basophils % (manual) 6.8 %; Dohle Bodies 1+; Eosinophils # (manual) 0.03 K/uL (0-0.5); Eosinophils % (manual) 1.4 %; Lymphocytes # (manual) 0.47 K/uL (1.2-3.4); Lymphocytes % (manual) 22.6 %; Metamyelocytes # (manual) 0.01 K/uL (0-0); Metamyelocytes % (manual) 0.7 %; Monocytes # (manual) 0.34 K/uL (0.11-0.59); Monocytes % (manual) 16.4 %; Myelocytes # (manual) 0.01 K/uL (0-0); Myelocytes % (manual) 0.7 %; Neutrophils # (manual) 1.06 K/uL (1.4-6.5); Neutrophils % (manual) 51.4 %; Platelet Estimate Decreased (Normal)
[2020-07-07] MEDS: ONDANSETRON INJ 2 MG/ML 2 ML VIAL IV PRN (20:00)
[2020-07-07] MEDS: SIMVASTATIN 20 MG TAB PO SCH (20:01)
[2020-07-08] MEDS: POTASSIUM CHLORIDE 40 MEQ in D5W AND 1/2NSS 1,000 ML/1,000 ML BAG IV SCH ×3 (00:09→16:57)
[2020-07-08] MEDS: ALUMINUM/MAGNESIUM SUSP 72 ML, LIDOCAINE HCL VISCOUS 2% 24 ML, BARCODE IDENTIFIER 1 EA PO PRN (05:41)
[2020-07-08] MEDS: SUCRALFATE 1 GM TAB PO SCH ×4 (05:43→20:07)
[2020-07-08] MEDS: NITROGLYCERIN 2% OINTMENT 30GM TUBE EXT SCH ×2 (05:43→13:23)
[2020-07-08 07:09] LABS: BUN Creatinine Ratio 10.8 (10-20); Calcium 8.6 mg/dl (8.5-10.1); Est GFR (African American) 80.6; Est GFR (Non-African American) 69.5; Magnesium 1.3 mg/dl (1.8-2.4); Potassium 4.2 mmol/L (3.5-5.1)
[2020-07-08 07:13] LABS: Hematocrit (blood only) 20.7 % (37-47); Mean Corpuscular Hemoglobin 29.7 pg (25-34); Mean Corpuscular Hgb Conc 33.8 g/dL (32-36); Mean Corpuscular Volume 87.7 fL (80-100); Platelet Count 22 K/uL (130-400); RDW Coefficient of Variation 14.8 % (11.5-14.5); RDW Standard Deviation 46.9 fL (36.4-46.3); Red Blood Count 2.36 M/uL (4.2-5.4); White Blood Count 4.01 K/uL (4.8-10.8)
[2020-07-08 07:14] LABS: ALC (manual) 0.63 K/uL (1.2-3.4); ANC (manual) 2.85 K/uL (1.4-6.5); Basophils # (manual) 0.04 K/uL (0-0.2); Basophils % (manual) 1.1 %; Dohle Bodies 1+; Lymphocytes # (manual) 0.63 K/uL (1.2-3.4); Lymphocytes % (manual) 15.6 %; Metamyelocytes # (manual) 0.09 K/uL (0-0); Metamyelocytes % (manual) 2.2 %; Monocytes # (manual) 0.27 K/uL (0.11-0.59); Monocytes % (manual) 6.7 %; Myelocytes # (manual) 0.13 K/uL (0-0); Myelocytes % (manual) 3.3 %; Neutrophils # (manual) 2.85 K/uL (1.4-6.5); Neutrophils % (manual) 71.1 %; Platelet Estimate SIGNIFIC DECREASED (Normal)
[2020-07-08] MEDS ORDERED: SODIUM PHOSPHATE 3 MMOL/1 ML INFUSION IV STA (07:30)
[2020-07-08] MEDS ORDERED: SODIUM PHOSPHATE 30 MMOL in SODIUM CHLORIDE 0.9% 500 ML IV ONE (07:45)
[2020-07-08] MEDS: PANTOprazole 40 MG in SYRINGE 0 ML IV SCH (08:11)
[2020-07-08] MEDS: MAGNESIUM SULFATE / D5W 1 GM/100 ML BAG IV SCH ×3 (08:18→13:19)
[2020-07-08] MEDS: METOPROLOL SUCC 50MG EXT REL TAB PO SCH (10:34)
[2020-07-08] MEDS: FENOFIBRATE NANOCRYSTALLIZED 48 MG TABLET PO SCH (10:34)
[2020-07-08] MEDS: ONDANSETRON INJ 2 MG/ML 2 ML VIAL IV PRN (11:25)
[2020-07-08 17:22] LABS: Mean Corpuscular Hgb Conc 34.5 g/dL (32-36); Mean Platelet Volume 11.1 fL (7.4-10.4); Platelet Count 22 K/uL (130-400)
[2020-07-08] MEDS ORDERED: SODIUM CHLORIDE 0.9% 250 ML IV PRN (17:25)
[2020-07-08 17:34] LABS: ALC (manual) 0.57 K/uL (1.2-3.4); ANC (manual) 6.76 K/uL (1.4-6.5); Dohle Bodies 1+; Hemoglobin 6.9 g/dL (12.0-16.0); Lymphocytes # (manual) 0.57 K/uL (1.2-3.4); Lymphocytes % (manual) 6.9 %; Metamyelocytes # (manual) 0.21 K/uL (0-0); Metamyelocytes % (manual) 2.6 %; Myelocytes # (manual) 0.21 K/uL (0-0); Myelocytes % (manual) 2.6 %; Neutrophils # (manual) 6.76 K/uL (1.4-6.5); Neutrophils % (manual) 81.9 %; Platelet Estimate SIGNIFIC DECREASED (Normal); RDW Coefficient of Variation 14.8 % (11.5-14.5); RDW Standard Deviation 46.4 fL (36.4-46.3); White Blood Count 8.26 K/uL (4.8-10.8)
[2020-07-08] MEDS ORDERED: NITROGLYCERIN SL 0.4 MG/TAB TAB SL PRN (18:04)
--- NOTE | 2020-07-08 18:04 | Hospitalist Progress Note ---
Date of Service July 08, 2020 Assessment & Plan (1) Chest pain: Really more epigastric in nature rather than chest pain. GI cocktail possibly effective, but patient feels less so today. - Suspect having esophageal spasms given the nature of her pain (episodic, acute-onset, severe, sharp); possibly secondary to esophageal thrush, radiation esophagitis, achalasia, esophageal stenosis. - Seems better on her nitroglycerin patch. - Consulted GI - EGD on 07/07 showed severe radiation esophagitis. Biopsies taken. - Will also start nitroglycerin PRN and diltiazem (2) JOSE ANTONIO (acute kidney injury): Baseline Cr ~1.0. Up to 1.6 due to dehydration as outpatient. - Cr presently 0.9. - Stop IV fluids (3) Odynophagia: As above. (4) Small cell lung cancer: Follows with Dr. Olmos. Presently on cisplatin/etoposide Q21d. Last doses were last week (~06/27 & 06/30 from oncology notes). Today (07/07) is C3D11. - Discussed with Dr. Olmos on 07/07; will monitor and put in consult if any acute changes - Support WBCs, hgb, electrolytes, etc. (5) Antineoplastic chemotherapy induced pancytopenia: Neutropenic with ANC 200. Due to chemotherapy last week. - Neutropenic precautions - Transfuse for hgb > 8. (6) Hypertension: BP is presently 125/70. - Start diltiazem 60 mg PO QID, stop beta-vinayak (7) Restless leg syndrome: None noted today. - Monitor (8) GERD (gastroesophageal reflux disease): May be contributing to aspect of epigastric pain. - Continue PPI PO BID - Continue carafate (9) Depression: No overt symptoms today on interview. - Monitor (10) DVT prophylaxis: SCDs - Hold heparin for low platelets Admission and Anticipated Discharge Date Admission Date: July 06, 2020 Subjective Improved with current therapy. Reports no fevers/chills, chest pain, shortness of breath, abdominal pain, nausea, or vomiting. Physical Exam Constitutional: WD/WN, vitals as above Eyes: EOM intact bilaterally; no conjunctival abnormality ENMT: external ear and nose normal, oropharynx normal Neck: trachea midline, no thyromegaly normal visual inspection Respiratory: normal respiratory effort, lungs clear to auscultation no respiratory distress Cardiovascular: RRR, no murmur, no edema Gastrointestinal (Abdomen): Inspection/Auscultation: abdomen normal to inspection; abdomen not distended Musculoskeletal: no cyanosis or clubbing, extremities motor strength 5/5 Skin: no rashes, warm and dry Neurologic: moves all extremities and awake Psychiatric: Orientation: alert, oriented to person and cooperative Results & Data Results & Data ([facility]) Vital Signs (Past 12 Hours) Vital Signs Temp Pulse Resp BP Pulse Ox 07/08/20 14:42 36.4 C L 92 H 16 125/67 94 07/08/20 07:26 36.5 C 82 16 128/69 93 PG Care Time/CCT Total # of Minutes Spent Total Time Spent with Patient: Total time spent is greater than 50% in coordination of care (as documented) at patient's floor/unit and/or counseling patient: Coding Level of Care Code 52806 Subseq Hosp Care Lvl 3 Diagnoses Chest pain R07.9 JOSE ANTONIO (acute kidney injury) N17.9 Odynophagia R13.10 Small cell lung cancer C34.90 Antineoplastic chemotherapy induced pancytopenia D61.810; T45.1X5A Hypertension I10 Restless leg syndrome G25.81 GERD (gastroesophageal reflux disease) K21.9 Depression F32.9 DVT prophylaxis Z29.9
[2020-07-08] MEDS: PROCHLORPERAZINE MALEATE 10 MG TAB PO PRN (18:24)
[2020-07-08] MEDS: HEPARIN 100 UNIT/ML 5ML FLUSH FLUSH PRN (18:40)
[2020-07-08] MEDS: PANTOprazole 40 MG TAB PO SCH (20:06)
[2020-07-08] MEDS: dilTIAZem HCl 60 MG TAB PO SCH (20:07)
[2020-07-09 07:14] LABS: Albumin Globulin Ratio 1.2 (0.9-2); Albumin Level 2.7 gm/dl (3.4-5.0); Bilirubin,Total 0.5 mg/dl (0.2-1); Calcium 8.7 mg/dl (8.5-10.1); Creatinine Clr Calc Pharmacy 64.4 ml/min; Est GFR (African American) 82.8; Est GFR (Non-African American) 71.4; Globulin 2.2 gm/dl (2.5-4.0); Magnesium 1.6 mg/dl (1.8-2.4); Phosphorus 2.4 mg/dl (2.5-4.9); Potassium 3.7 mmol/L (3.5-5.1); Total Protein 4.9 gm/dl (6.4-8.2)
[2020-07-09 07:26] LABS: Hematocrit (blood only) 26.7 % (37-47); Hemoglobin 9.3 g/dL (12.0-16.0); Mean Corpuscular Hemoglobin 30.8 pg (25-34); Mean Corpuscular Hgb Conc 34.8 g/dL (32-36); Mean Corpuscular Volume 88.4 fL (80-100); Mean Platelet Volume 11.1 fL (7.4-10.4); Platelet Count 18 K/uL (130-400); RDW Coefficient of Variation 14.7 % (11.5-14.5); RDW Standard Deviation 47.8 fL (36.4-46.3); Red Blood Count 3.02 M/uL (4.2-5.4); White Blood Count 9.84 K/uL (4.8-10.8)
[2020-07-09 07:27] LABS: ALC (manual) 0.77 K/uL (1.2-3.4); ANC (manual) 7.55 K/uL (1.4-6.5); Dohle Bodies 1+; Eosinophils # (manual) 0.09 K/uL (0-0.5); Eosinophils % (manual) 0.9 %; Lymphocytes # (manual) 0.77 K/uL (1.2-3.4); Lymphocytes % (manual) 7.8 %; Metamyelocytes # (manual) 0.68 K/uL (0-0); Metamyelocytes % (manual) 6.9 %; Monocytes # (manual) 0.42 K/uL (0.11-0.59); Monocytes % (manual) 4.3 %; Myelocytes # (manual) 0.33 K/uL (0-0); Myelocytes % (manual) 3.4 %; Neutrophils # (manual) 7.55 K/uL (1.4-6.5); Neutrophils % (manual) 76.7 %
[2020-07-09] MEDS: SUCRALFATE 1 GM TAB PO SCH ×2 (08:42→11:06)
[2020-07-09] MEDS: PROCHLORPERAZINE MALEATE 10 MG TAB PO PRN (08:43)
[2020-07-09] MEDS: FENOFIBRATE NANOCRYSTALLIZED 48 MG TABLET PO SCH (08:44)
[2020-07-09] MEDS: PANTOprazole 40 MG TAB PO SCH (08:44)
[2020-07-09] MEDS: dilTIAZem HCl 60 MG TAB PO SCH ×2 (08:45→13:51)
[2020-07-09] MEDS ORDERED: POTASSIUM PHOS 3 MMOL/1 ML INFUSION IV STA (10:12)
[2020-07-09] MEDS ORDERED: POTASSIUM PHOSPHATE 24 MMOL in SODIUM CHLORIDE 0.9% 500 ML IV ONE (10:30)
[2020-07-09] MEDS: MAGNESIUM SULFATE / D5W 1 GM/100 ML BAG IV SCH ×3 (10:58→14:50)
[2020-07-09 13:50] VITALS: O2SAT 96
[2020-07-09 16:11] VITALS: BP 127/77; PULSE 67; TEMP 97.5
[2020-07-09] MEDS: HEPARIN 100 UNIT/ML 5ML FLUSH FLUSH PRN (17:19)
--- NOTE | 2020-07-09 20:27 | Discharge Summary ---
Date of Service July 09, 2020 Admission HPI Per Admitting Provider Lori Tipton is a 60-year-old female who presents to the ER with odynophagia/chest pain. She reports this has been ongoing for months after starting her chemoradiation for small cell lung cancer but has been getting gradually progressively worse during this time. Previously her odynophagia has been blamed on her radiation therapy which finished on Friday and she was told that she should stop progressively getting better since then. Unfortunately this is any worse and she has been unable to have any oral intake other than hot tea. She describes a constant pain that is there all the time on her lower chest, no worse on palpation, severity 4/10, no radiation, not pleuritic, significantly worse with any oral intake. She has an additional intermittent severe 10/10 cramping pain which also appears to come on with oral intake. Associated nausea but no vomiting. Significant weight loss since starting chemotherapy. Her chemotherapy is ongoing, last dose 1 week ago. No change in bowel movements. Principal Diagnosis Radiation esophagitis and possible esophageal spasm Discharge Exam Constitutional WD/WN, vitals as above Eyes EOM intact bilaterally; no conjunctival abnormality ENMT external ear and nose normal, oropharynx normal Neck trachea midline, no thyromegaly normal visual inspection Respiratory normal respiratory effort, lungs clear to auscultation no respiratory distress Cardiovascular RRR, no murmur, no edema Gastrointestinal (Abdomen) Inspection/Auscultation: abdomen normal to inspection; abdomen not distended Musculoskeletal no cyanosis or clubbing, extremities motor strength 5/5 Skin no rashes, warm and dry Neurologic moves all extremities and awake Psychiatric Orientation: alert, oriented to person and cooperative Discharge Data Allergies Allergy/AdvReac Type Severity Reaction Status Date / Time lisinopril AdvReac Mild Cough Verified 07/06/20 15:52 Consultations 07/06/20 17:14 ED Decision to Admit Stat 07/06/20 21:33 Consult Gastroenterology Routine Procedures Performed Operation Date: 07/07/20 17:00 Actual Procedures p EGD Biopsy Cytology - Arturo Wall MD Ordered Studies 07/06/20 15:40 CT angio chest PE protocol Stat Hospital Course (1) Chest pain: Really more epigastric in nature rather than chest pain. GI cocktail possibly effective, but patient feels less so today. - Suspect having esophageal spasms given the nature of her pain (episodic, acute-onset, severe, sharp); possibly secondary to esophageal thrush, radiation esophagitis, achalasia, esophageal stenosis. - Consulted GI - EGD on 07/07 showed severe radiation esophagitis. Biopsies taken. - Diltiazem also seemed to help dramatically (more than almost any other therapy). Discharged on: 1) PPI PO BID & Carafate 2) Diltiziam CD, nitroglycerin PRN, and recommendation for peppermint oil before meals. (2) JOSE ANTONIO (acute kidney injury): Baseline Cr ~1.0. Up to 1.6 due to dehydration as outpatient. - Cr was 0.9 on discharge. (3) Odynophagia: As above. (4) Small cell lung cancer: Follows with Dr. Olmos. Presently on cisplatin/etoposide Q21d. Last doses were last week (~06/27 & 06/30 from oncology notes). Today (07/07) is C3D11. - Discussed with Dr. Olmos on 07/07; will monitor and put in consult if any acute changes - Received 2 units of PRBCs on 07/08 -> Hgb was 9.3 on discharge. Plts had fallen to 18. Dr. Olmos made aware. Patient will have visit this week and get checked. (5) Antineoplastic chemotherapy induced pancytopenia: Neutropenic with ANC 200. Due to chemotherapy last week. - Neutropenic precautions - Transfuse for hgb > 8. (6) Hypertension: BP is presently 125/70. - Start diltiazem 60 mg PO QID, stopped beta-vinayak (7) Restless leg syndrome: None noted today. - Monitor (8) GERD (gastroesophageal reflux disease): May be contributing to aspect of epigastric pain. - Continue PPI PO BID - Continue carafate (9) Depression: No overt symptoms today on interview. - Monitor (10) DVT prophylaxis: SCDs - Hold heparin for low platelets Total Time Total Time Spent Total Time Spent (In Minutes): 35 Discharge Plan Discharge Items Patient Disposition: Home - Self-Care Reason For Visit: NEUTROPENIA,DEHYDRATION,ODYNOPHAGIA,CHEMOTHERAPY Discharge Diagnosis: Radiation esophagitis and possible esophageal spasm Condition on Discharge: Good Activity: Resume your previous activity Non-emergency contact: Primary Care Provider and Oncologist Call non-emergency contact if: your symptoms worsen and your temperature is above 101 Follow-up/Referrals: Jane Ortiz DO [Primary Care Provider] - Lucio Olmos DO [Physician] - (Please call the [facility] tomorrow to schedule an appointment next week.) Diet: Full liquid Diet Texture: Easy to Chew Addtl Attending Provider Instructions: You were admitted with epigastric pain that we think was due to radiation esophagitis (damage to the esophagus from your radiation) as well as a possible element of esophageal spasm. We are treating the radiation injury with pantoprazole (an acid vinayak) twice a day and Carafate which lines the stomach. This will take time to heal. We are also treating you with a new blood pressure medication that helps reduce esophageal spasm. This is called diltiazem. You will take this medication every day as it is also beneficial for your high blood pressure. We also sent nitroglycerin tablets to your pharmacy. You can take this only "as needed" for the esophageal spasm when it occurs. Be sure to be sitting when you take it as it can lower your blood pressure. Finally, I recommend buying peppermint oil or Altoid mints. Peppermint oil is a smooth muscle relaxer and can help reduce the discomfort. You take either 5 drops of peppermint oil or 2 Altoids before each meal and as needed for any pain. One small note, due to an interaction with diltiazem, we switched your cholesterol medication to atorvastatin. Please call Dr. Olmos's office tomorrow morning to arrange a follow up sometime this week to check on your blood counts. Pending Studies at Discharge: No Stand-Alone Forms: [facility], Opioid Pain Management, Smoking Cessation Medications and DC Order Prescriptions: New pantoprazole 40 mg Tablet,Delayed Release (Dr/Ec) 40 mg PO BID Qty: 60 RF: 0 nitroglycerin [Nitrostat] 0.4 mg Tablet, Sublingual 0.4 mg sublingual Q3H PRN (Reason: Epigastric pain) Qty: 20 RF: 0 atorvastatin 10 mg tablet 10 mg PO HS Qty: 30 RF: 0 diltiazem HCl [Tiadylt ER] 240 mg capsule,extended release 24 hr 240 mg PO DAILY Qty: 30 RF: 0 Continued sucralfate [Carafate] 1 gram tablet 1 g PO Q6H Qty: 120 RF: 4 hydrocodone-acetaminophen 7.5-325 mg/15 mL solution 15 ml PO Q6H PRN (Reason: esophagitis) Qty: 473 RF: 0 fenofibrate nanocrystallized 48 mg tablet 48 mg PO QAM Qty: 90 RF: 1 ondansetron HCl 8 mg tablet 8 mg PO DAILY PRN (Reason: Nausea) RF: 0 prochlorperazine maleate 10 mg tablet 10 mg PO Q6H PRN (Reason: Nausea) RF: 0 Discontinued omeprazole 20 mg capsule,delayed release(DR/EC) 20 mg PO DAILY PRN (Reason: Acid Reflux) Qty: 30 RF: 3 metoprolol succinate 100 mg tablet extended release 24 hr 100 mg PO QAM Qty: 90 RF: 1 simvastatin 20 mg tablet 20 mg PO HS Qty: 90 RF: 3 Discharge Orders: Discharge Order (Routine); Ordered 07/09/20 Ordered By: Marky Thompson/Other Patient Handouts: Esophagitis Admission Data Admit Date/Time: 07/08/20 18:08 Attending Provider: Marky Ardon Admit Provider: Mo Valadez Primary Care Provider: Jane Ortiz Other Providers: Sherman Martinez ; Marky Ardon Other Interventions: Discharge Summary Assessment (RN) Last Done: 07/09/20 15:24 Coding Level of Care Code D/C Day Management >30 mins Diagnoses Chest pain R07.9 JOSE ANTONIO (acute kidney injury) N17.9 Odynophagia R13.10 Small cell lung cancer C34.90 Antineoplastic chemotherapy induced pancytopenia D61.810; T45.1X5A Hypertension I10 Restless leg syndrome G25.81 GERD (gastroesophageal reflux disease) K21.9 Depression F32.9 DVT prophylaxis Z29.9
== END 2020-07-09 17:39 | disposition home or self-care (01) | DRG 391 ==
LOC: ED 13:56 → 3E 13:56 → SUATTDRO 18:25 → 3E 19:24

== ENCOUNTER 2020-07-30 14:01 | Inpatient (IN) ==
[2020-07-30] MEDS ORDERED: HYDROmorphone INJ 0.5 MG/0.5 ML SYR IV STA (14:12)
[2020-07-30] MEDS ORDERED: SODIUM CHLORIDE 0.9% 1000ML 1,000 ML IV SCH ×2 (14:15→18:31)
[2020-07-30 14:22] LABS: Hematocrit (blood only) 32.9 % (37-47); Hemoglobin 11.4 g/dL (12.0-16.0); Mean Corpuscular Hemoglobin 30.6 pg (25-34); Mean Corpuscular Hgb Conc 34.7 g/dL (32-36); Mean Corpuscular Volume 88.4 fL (80-100); Mean Platelet Volume 10.5 fL (7.4-10.4); Platelet Count 129 K/uL (130-400); RDW Coefficient of Variation 15.4 % (11.5-14.5); RDW Standard Deviation 49.9 fL (36.4-46.3); Red Blood Count 3.72 M/uL (4.2-5.4); White Blood Count 24.74 K/uL (4.8-10.8)
--- NOTE | 2020-07-30 14:23 | Emergency Department Note ---
History of Present Illness General Chief complaint: Ankle Pain Stated complaint: syncope Time Seen by Provider: 07/30/20 14:02 Source: patient History of Present Illness Provider complaint: Ankle pain Onset (ago): hour(s) Location: ankle and left Radiation: non-radiation Severity: severe Pain Consistency: + constant Quality: + sharp Relieved By: + medication (Fentanyl) Exacerbated By: + movement Associated symptoms: + syncope; no chest pain, no cough, no fever/chills, no headaches, no nausea/vomiting and no shortness of breath This is a 60-year-old female with history of squamous cell carcinoma status post chemotherapy presenting with a near syncopal episode and injury to her left ankle. The patient states that she was walking to the kitchen and she felt extremely lightheaded. She fell down onto her buttocks and landed onto her left ankle. She has sharp 10 out of 10 pain to the left ankle. It is worse with movement. No numbness or weakness in the toes. She states that she does not think she passed out completely as she landed on her buttocks and did not fall and hit her head or injure her neck. She states that she has esophagitis and has difficulty eating and drinking and so has not been eating and drinking very much. She last had a few spoonfuls of cauliflower soup at 12:30 PM today. She denies having any preceding chest discomfort, shortness of breath, palpitations, abdominal pain, vomiting, diarrhea, black or bloody stools, fever, cough or cold symptoms or known exposure to COVID-19. She denies any back or hip pain. She is a patient of Dr. Roque. Home Medications Home Medications Medication Instructions Recorded Confirmed Type ondansetron HCl 8 mg PO DAILY PRN 05/29/20 07/30/20 History prochlorperazine maleate 10 mg PO Q6H PRN 05/29/20 07/30/20 History sucralfate 1 gram tablet 1 g PO Q6H #120 tab 06/12/20 07/30/20 Rx fenofibrate nanocrystallized 48 mg 48 mg PO QAM #90 tab 06/13/20 07/30/20 Rx tablet diltiazem HCl [Tiadylt ER] 240 mg PO DAILY #30 cap 07/09/20 07/30/20 Rx nitroglycerin [Nitrostat] 0.4 mg SUBLINGUAL Q3H PRN #20 tab 07/09/20 07/30/20 Rx hydrocodone 7.5 mg-acetaminophen 15 ml PO Q6H PRN #473 ml 07/10/20 07/30/20 Rx 325 mg/15 mL oral solution atorvastatin 10 mg tablet 10 mg PO HS #30 tab 07/21/20 07/30/20 Rx pantoprazole 40 mg tablet,delayed 40 mg PO BID #60 tab 07/21/20 07/30/20 Rx release Allergies Allergy/AdvReac Type Severity Reaction Status Date / Time lisinopril AdvReac Mild Cough Verified 07/30/20 16:23 Past Med/Surg History Medical History Arthritis Bilat Knees & lower back Depression GERD (gastroesophageal reflux disease) Hypercholesterolemia Hypertension Restless leg syndrome Small cell lung cancer (04/21/20) Surgical History H/O arthroscopic knee surgery 1998 RIGHT/ 2010 LEFT H/O tubal ligation 1991 H/O: section x2 1987 & 1982 History of bronchoscopy (04/21/20) 04/21/2020 - with positive biopsy History of excision of pilonidal cyst 1987 History of tooth extraction molars Port-A-Cath in place (05/25/20) Insertion of Mediport Left Subclavian with Fluoroscopy Dr. Ramos 05/25/2020 S/P carpal tunnel release 1989's / 2014 LEFT S/P tonsillectomy Age 4 Family History Mother , Passed age 64 of pancreatic cancer Hypertension Cancer Father Hearing loss Grandmother (Maternal) , Passed age 79 of Stomach Cancer No problems noted. Uncle , Passed in 80's of Colorectal Cancer No problems noted. Brother No problems noted. Brother No problems noted. Sister No problems noted. Grandfather (Maternal) , Passed age 89 of Bladder Cancer No problems noted. Son No problems noted. Daughter No problems noted. Grandmother Cancer Grandfather Cancer Other No family history of allergies No family history of bleeding disorder Denies family history of Ovarian cancer Heart disease Breast cancer Lung cancer Asthma Social History Smoking Status: Former smoker Tobacco Type: Cigarettes Age Started Using Tobacco: 20; Age Quit Using Tobacco: 60; packs per day: 1; Years Smoked: 40; Second Hand Exposure: No; Hx Alcohol Use: No Hx Substance Use: No Preferred Language: Yakut Communication Ability: Effective Visual Impairment: No Limitations Hearing Ability: Normal [place] Cleaner Required: No Beliefs That Will Affect Care: None marital status: Current Living Situation: Spouse current occupational status: employed 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 and A total of 10 systems reviewed and were otherwise negative Physical Exam Vital Signs Vital Signs - 24 hr 07/30/20 14:07 07/30/20 14:12 07/30/20 14:13 Temperature 36.8 C Temperature Source Oral Pulse Rate - Lying Pulse Rate - Sitting Pulse Rate 71 64 70 Pulse Rate [Apical] Pulse Rate from SpO2 Sensor 70 69 Respiratory Rate 22 20 18 Respiratory Effort / Characteristics Non-Labored Spontaneous Respiratory Depth Normal Respiratory Pattern Regular Blood Pressure - Lying Blood Pressure - Sitting Blood Pressure 113/60 113/60 Blood Pressure [Right Arm] Blood Pressure Mean 70 77 Blood Pressure Mean [Right Arm] Pulse Oximetry 98 97 98 Oxygen Delivery Method Room Air Oxygen Flow Rate Sepsis Recent Fever Within 48 Hours No Sepsis New/Unexplained Change in Mental Status No Sepsis Action Taken by Nursing No Action Required End-Tidal CO2 07/30/20 14:15 07/30/20 14:20 07/30/20 14:25 Temperature Temperature Source Pulse Rate - Lying Pulse Rate - Sitting Pulse Rate 70 69 73 Pulse Rate [Apical] Pulse Rate from SpO2 Sensor 71 71 72 Respiratory Rate 17 17 18 Respiratory Effort / Characteristics Respiratory Depth Respiratory Pattern Blood Pressure - Lying Blood Pressure - Sitting Blood Pressure Blood Pressure [Right Arm] Blood Pressure Mean Blood Pressure Mean [Right Arm] Pulse Oximetry 99 99 99 Oxygen Delivery Method Oxygen Flow Rate Sepsis Recent Fever Within 48 Hours Sepsis New/Unexplained Change in Mental Status Sepsis Action Taken by Nursing End-Tidal CO2 07/30/20 14:30 07/30/20 14:32 07/30/20 14:35 Temperature Temperature Source Pulse Rate - Lying Pulse Rate - Sitting Pulse Rate 73 76 Pulse Rate [Apical] 64 Pulse Rate from SpO2 Sensor 73 76 Respiratory Rate 17 20 21 Respiratory Effort / Characteristics Non-Labored Spontaneous Respiratory Depth Normal Respiratory Pattern Regular Blood Pressure - Lying Blood Pressure - Sitting Blood Pressure 96/60 L Blood Pressure [Right Arm] 113/60 Blood Pressure Mean 73 Blood Pressure Mean [Right Arm] 77 Pulse Oximetry 100 97 99 Oxygen Delivery Method Room Air Room Air Oxygen Flow Rate Sepsis Recent Fever Within 48 Hours Sepsis New/Unexplained Change in Mental Status Sepsis Action Taken by Nursing End-Tidal CO2 07/30/20 14:39 07/30/20 14:40 07/30/20 14:41 Temperature Temperature Source Pulse Rate - Lying 76 Pulse Rate - Sitting 81 Pulse Rate 80 82 77 Pulse Rate [Apical] Pulse Rate from SpO2 Sensor 76 81 78 Respiratory Rate 15 15 13 Respiratory Effort / Characteristics Respiratory Depth Respiratory Pattern Blood Pressure - Lying 90/61 L Blood Pressure - Sitting 100/50 L Blood Pressure 109/52 L 90/61 L 100/50 L Blood Pressure [Right Arm] Blood Pressure Mean 81 79 61 Blood Pressure Mean [Right Arm] Pulse Oximetry 100 99 Oxygen Delivery Method Oxygen Flow Rate Sepsis Recent Fever Within 48 Hours Sepsis New/Unexplained Change in Mental Status Sepsis Action Taken by Nursing End-Tidal CO2 07/30/20 14:43 07/30/20 14:45 07/30/20 14:47 Temperature Temperature Source Pulse Rate - Lying Pulse Rate - Sitting Pulse Rate 76 80 80 Pulse Rate [Apical] Pulse Rate from SpO2 Sensor 76 79 79 Respiratory Rate 16 14 16 Respiratory Effort / Characteristics Respiratory Depth Respiratory Pattern Blood Pressure - Lying Blood Pressure - Sitting Blood Pressure 99/77 L Blood Pressure [Right Arm] Blood Pressure Mean 85 Blood Pressure Mean [Right Arm] Pulse Oximetry 98 99 99 Oxygen Delivery Method Oxygen Flow Rate Sepsis Recent Fever Within 48 Hours Sepsis New/Unexplained Change in Mental Status Sepsis Action Taken by Nursing End-Tidal CO2 07/30/20 14:50 07/30/20 14:55 07/30/20 15:00 Temperature Temperature Source Pulse Rate - Lying Pulse Rate - Sitting Pulse Rate 80 73 77 Pulse Rate [Apical] Pulse Rate from SpO2 Sensor 74 76 Respiratory Rate Respiratory Effort / Characteristics Respiratory Depth Respiratory Pattern Blood Pressure - Lying Blood Pressure - Sitting Blood Pressure 128/82 137/75 Blood Pressure [Right Arm] Blood Pressure Mean 114 95 Blood Pressure Mean [Right Arm] Pulse Oximetry 100 100 Oxygen Delivery Method Oxygen Flow Rate 4 4 Sepsis Recent Fever Within 48 Hours Sepsis New/Unexplained Change in Mental Status Sepsis Action Taken by Nursing End-Tidal CO2 24 27 07/30/20 15:05 07/30/20 15:10 07/30/20 15:15 Temperature Temperature Source Pulse Rate - Lying Pulse Rate - Sitting Pulse Rate 81 73 69 Pulse Rate [Apical] Pulse Rate from SpO2 Sensor 80 73 69 Respiratory Rate Respiratory Effort / Characteristics Respiratory Depth Respiratory Pattern Blood Pressure - Lying Blood Pressure - Sitting Blood Pressure 132/72 144/75 H Blood Pressure [Right Arm] Blood Pressure Mean 93 95 Blood Pressure Mean [Right Arm] Pulse Oximetry 100 96 99 Oxygen Delivery Method Oxygen Flow Rate 4 4 4 Sepsis Recent Fever Within 48 Hours Sepsis New/Unexplained Change in Mental Status Sepsis Action Taken by Nursing End-Tidal CO2 27 36 26 07/30/20 15:20 07/30/20 15:25 07/30/20 15:30 Temperature Temperature Source Pulse Rate - Lying Pulse Rate - Sitting Pulse Rate 71 74 75 Pulse Rate [Apical] Pulse Rate from SpO2 Sensor 71 74 74 Respiratory Rate Respiratory Effort / Characteristics Respiratory Depth Respiratory Pattern Blood Pressure - Lying Blood Pressure - Sitting Blood Pressure 137/63 115/68 117/64 Blood Pressure [Right Arm] Blood Pressure Mean 90 90 78 Blood Pressure Mean [Right Arm] Pulse Oximetry 100 97 98 Oxygen Delivery Method Oxygen Flow Rate 4 Sepsis Recent Fever Within 48 Hours Sepsis New/Unexplained Change in Mental Status Sepsis Action Taken by Nursing End-Tidal CO2 34 07/30/20 15:35 07/30/20 15:40 07/30/20 15:45 Temperature Temperature Source Pulse Rate - Lying Pulse Rate - Sitting Pulse Rate 81 74 79 Pulse Rate [Apical] Pulse Rate from SpO2 Sensor 81 75 78 Respiratory Rate 16 16 16 Respiratory Effort / Characteristics Respiratory Depth Respiratory Pattern Blood Pressure - Lying Blood Pressure - Sitting Blood Pressure 131/71 127/71 122/75 Blood Pressure [Right Arm] Blood Pressure Mean 92 89 96 Blood Pressure Mean [Right Arm] Pulse Oximetry 95 98 99 Oxygen Delivery Method Oxygen Flow Rate Sepsis Recent Fever Within 48 Hours Sepsis New/Unexplained Change in Mental Status Sepsis Action Taken by Nursing End-Tidal CO2 07/30/20 15:50 07/30/20 15:55 07/30/20 15:57 Temperature Temperature Source Pulse Rate - Lying Pulse Rate - Sitting Pulse Rate 79 80 80 Pulse Rate [Apical] Pulse Rate from SpO2 Sensor 80 80 79 Respiratory Rate 14 16 16 Respiratory Effort / Characteristics Respiratory Depth Respiratory Pattern Blood Pressure - Lying Blood Pressure - Sitting Blood Pressure 107/65 127/71 122/76 Blood Pressure [Right Arm] Blood Pressure Mean 82 89 118 Blood Pressure Mean [Right Arm] Pulse Oximetry 99 99 98 Oxygen Delivery Method Oxygen Flow Rate Sepsis Recent Fever Within 48 Hours Sepsis New/Unexplained Change in Mental Status Sepsis Action Taken by Nursing End-Tidal CO2 07/30/20 15:58 07/30/20 16:00 07/30/20 16:05 Temperature Temperature Source Pulse Rate - Lying Pulse Rate - Sitting Pulse Rate 82 84 75 Pulse Rate [Apical] Pulse Rate from SpO2 Sensor 76 Respiratory Rate 16 Respiratory Effort / Characteristics Respiratory Depth Respiratory Pattern Blood Pressure - Lying Blood Pressure - Sitting Blood Pressure 113/68 107/40 L Blood Pressure [Right Arm] Blood Pressure Mean 76 46 Blood Pressure Mean [Right Arm] Pulse Oximetry 99 Oxygen Delivery Method Oxygen Flow Rate Sepsis Recent Fever Within 48 Hours Sepsis New/Unexplained Change in Mental Status Sepsis Action Taken by Nursing End-Tidal CO2 Constitutional: Vital signs reviewed. Eyes: Pupils are equal round reactive to light. Conjunctiva are noninjected. ENT: Pharynx is clear without erythema or exudate. Mucous membranes are dry. Neck supple without meningeal signs. Respiratory: Clear to auscultation bilaterally. Breath sounds are equal bilaterally. Cardiovascular: Regular rate and rhythm. No rubs or gallops. GI: Soft, nondistended and nontender. Bowel sounds are present. Musculoskeletal: No tenderness to the hips or proximal left lower extremity. She has deformity and diffuse tenderness to the right ankle. Dorsalis pedis pulses intact. Less than 2-second capillary refill in the toes. She is able to move and feel her toes. Integumentary: No cyanosis. or jaundice. Neurological: The patient is awake and alert. No focal deficits. Psychiatric: Normal affect. Not anxious appearing. Procedures Free Text Procedures Procedural Sedation Indication fracture dislocation of the left ankle. Total time: 12 minutes. Written consent was obtained after the risks and benefits were explained to the patient, including, but not limited to aspiration, allergic reaction, breathing difficulties, cardiac complications, vomiting, pain, event recall, bleeding, and/or infection. Pre-sedation examination and paperwork completed. The patient was on 100% oxygen via NRB prior to the procedure. Continous end tidal CO2 monitoring, pulse oximetry, and cardiac monitoring were utilized. Suction, airway equipment, medications, respiratory equipment, and appropriate personnel were prepared prior to the initiation of the procedure. A time out was taken. Sedation was achieved utilizing 35 mg of IV ketamine and 40 mg of IV propofol. After I observed the patient had reached the appropriate level of sedation the main procedure was performed without complication. Sedation was discontinued and the monitoring continued. The patient recovered quickly from the effects of the medication without complication or adverse event. Course Administered Medications Hydromorphone HCl (Hydromorphone Inj 0.5 Mg/0.5 Ml Syr) 0.5 mg IV Q3H PRN PRN Reason: Pain Stop: 08/13/20 18:30 Last Admin: 07/30/20 19:29 Dose: 0.5 mg Documented by: [id number] Discontinued Medications Hydromorphone HCl (Hydromorphone Inj 0.5 Mg/0.5 Ml Syr) 0.5 mg IV NOW STA Stop: 07/30/20 14:13 Last Admin: 07/30/20 18:52 Dose: Not Given Documented by: [id number] Sodium Chloride (Nss 1000ml) 1,000 mls @ 999 mls/hr IV .Q1H1M DELANEY Stop: 07/30/20 15:15 Last Infusion: 07/30/20 15:44 Dose: 0 mls/hr Documented by: [id number] Admin: 07/30/20 14:41 Dose: 999 mls/hr Documented by: [id number] Ketamine HCl (Ketamine Hcl Inj 50 Mg/Ml 10 Ml Vial) Confirm Administered Dose 500 mg .ROUTE .STK-MED ONE Stop: 07/30/20 14:56 Last Admin: 07/30/20 15:44 Dose: Not Given Documented by: [id number] Ketamine HCl (Ketamine Hcl Inj 50 Mg/Ml 10 Ml Vial) 35 mg IV ONE ONE Stop: 07/30/20 15:07 Last Admin: 07/30/20 15:06 Dose: 35 mg Documented by: [id number] Propofol (Propofol Iv Emulsion 10 Mg/Ml 20 Ml Vial) Confirm Administered Dose 200 mg IV .STK-MED ONE Stop: 07/30/20 14:55 Last Admin: 07/30/20 15:43 Dose: Not Given Documented by: [id number] Propofol (Propofol Iv Emulsion 10 Mg/Ml 20 Ml Vial) 20 mg IV Q2M DELANEY Stop: 07/30/20 15:09 Last Admin: 07/30/20 15:08 Dose: 20 mg Documented by: [id number] Cosigned by: [id number] Admin: 07/30/20 15:08 Dose: 20 mg Documented by: [id number] Cosigned by: [id number] Medical Decision Making Differential Diagnosis Left ankle fracture/dislocation, syncope, near syncope, dehydration, orthostatic hypotension, dysrhythmia, metabolic derangement Medical Records Attestation: I reviewed the patient's medical records. 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 Home Medications Current Medication List: was personally reviewed by me Laboratory Data Attestation: I reviewed the patient's lab results. Result diagrams: 07/30/20 14:10 07/30/20 14:10 Lab Results 07/30/20 07/30/20 07/30/20 Range/Units 14:10 14:10 15:30 WBC 24.74 H (4.8-10.8) K/uL RBC 3.72 L (4.2-5.4) M/uL Hgb 11.4 L (12.0-16.0) g/dL Hct 32.9 L (37-47) % MCV 88.4 (80-100) fL MCH 30.6 (25-34) pg MCHC 34.7 (32-36) g/dL RDW Std Deviation 49.9 H (36.4-46.3) fL RDW Coeff of Sebastián 15.4 H (11.5-14.5) % Plt Count 129 L (130-400) K/uL MPV 10.5 H (7.4-10.4) fL Immature Gran % (Auto) 9.6 % Neut % (Auto) 86.8 % Lymph % (Auto) 3.3 % [place] % (Auto) 0.0 % Eos % (Auto) 0.1 % Baso % (Auto) 0.2 % Neut # (Auto) 21.49 H (1.4-6.5) K/uL Lymph # (Auto) 0.81 L (1.2-3.4) K/uL [place] # (Auto) 0.01 L (0.11-0.59) K/uL Eos # (Auto) 0.02 (0-0.5) K/uL Baso # (Auto) 0.04 (0-0.2) K/uL Immature Gran # (Auto) 2.37 H (0.00-0.02) K/uL PT (9.0-12.0) Seconds INR (0.9-1.1) Sodium 135 L (136-145) mmol/L Potassium 2.6 L (3.5-5.1) mmol/L Chloride 95 L (98-107) mmol/L Carbon Dioxide 33 H (21-32) mmol/L Anion Gap 7.0 (3-11) BUN 40 H (7-18) mg/dl Creatinine 2.38 H (0.6-1.2) mg/dl Est Cr Clr Drug Dosing 23.8 ml/min Est GFR ( Amer) 25.2 Est GFR (Non-Af Amer) 21.8 BUN/Creatinine Ratio 17.0 (10-20) Glucose 128 H (70-99) mg/dl Calcium 8.6 (8.5-10.1) mg/dl Magnesium 1.9 (1.8-2.4) mg/dl Total Bilirubin 1.4 H (0.2-1) mg/dl AST 17 (15-37) U/L ALT 27 (12-78) U/L Alkaline Phosphatase 103 (45-117) U/L Troponin I < 0.015 (0-0.045) ng/ml Total Protein 6.3 L (6.4-8.2) gm/dl Albumin 3.3 L (3.4-5.0) gm/dl Globulin 3.0 (2.5-4.0) gm/dl Albumin/Globulin Ratio 1.1 (0.9-2) 25-OH Vitamin D Total (30-100) ng/ml TSH 1.430 (0.300-4.500) uIu/ml COVID-19 [email or web address] SARS-CoV-2, RNA, NAAT (NEGATIVE) 07/30/20 07/30/20 07/30/20 Range/Units 15:30 16:03 16:03 WBC (4.8-10.8) K/uL RBC (4.2-5.4) M/uL Hgb (12.0-16.0) g/dL Hct (37-47) % MCV (80-100) fL MCH (25-34) pg MCHC (32-36) g/dL RDW Std Deviation (36.4-46.3) fL RDW Coeff of Sebastián (11.5-14.5) % Plt Count (130-400) K/uL MPV (7.4-10.4) fL Immature Gran % (Auto) % Neut % (Auto) % Lymph % (Auto) % [place] % (Auto) % Eos % (Auto) % Baso % (Auto) % Neut # (Auto) (1.4-6.5) K/uL Lymph # (Auto) (1.2-3.4) K/uL [place] # (Auto) (0.11-0.59) K/uL Eos # (Auto) (0-0.5) K/uL Baso # (Auto) (0-0.2) K/uL Immature Gran # (Auto) (0.00-0.02) K/uL PT 12.4 H (9.0-12.0) Seconds INR 1.2 H (0.9-1.1) Sodium (136-145) mmol/L Potassium (3.5-5.1) mmol/L Chloride (98-107) mmol/L Carbon Dioxide (21-32) mmol/L Anion Gap (3-11) BUN (7-18) mg/dl Creatinine (0.6-1.2) mg/dl Est Cr Clr Drug Dosing ml/min Est GFR ( Amer) Est GFR (Non-Af Amer) BUN/Creatinine Ratio (10-20) Glucose (70-99) mg/dl Calcium (8.5-10.1) mg/dl Magnesium (1.8-2.4) mg/dl Total Bilirubin (0.2-1) mg/dl AST (15-37) U/L ALT (12-78) U/L Alkaline Phosphatase (45-117) U/L Troponin I (0-0.045) ng/ml Total Protein (6.4-8.2) gm/dl Albumin (3.4-5.0) gm/dl Globulin (2.5-4.0) gm/dl Albumin/Globulin Ratio (0.9-2) 25-OH Vitamin D Total 23.6 L (30-100) ng/ml TSH (0.300-4.500) uIu/ml COVID-19 Eval Order SARS-CoV-2, RNA, NAAT NEGATIVE (NEGATIVE) Imaging Data Radiologist's Impression: XR ankle LT 2V CLINICAL HISTORY: Fall. COMPARISON: None FINDINGS: Note is made of a trimalleolar fracture/dislocation of the left ankle. Specifically, there is an acute moderately displaced fracture of the medial malleolus. There is an acute angulated mildly displaced fracture through distal shaft of the left fibula. There is a probable additional fracture through the posterior malleolus. Ankle mortise is disrupted. Soft tissue swelling is present. There is moderate plantar and mild posterior calcaneal spurring. IMPRESSION: Trimalleolar fracture/dislocation of the left ankle. ACT 112: Negative or not required by law. Electronically signed by: Adan Bacon M.D. 07/30/2020 2:36 PM XR tibia fibula LT 2V CLINICAL HISTORY: fall eval for fx COMPARISON: Left knee radiographs November 28, 2016. FINDINGS: No proximal left tibial or fibular fracture is noted. Alignment of the left knee is anatomic. Note is made of a moderately displaced fracture of the medial malleolus as well as a suspected fracture of the posterior malleolus of the left tibia. There is an acute oblique mildly displaced distal left fibular fracture. Ankle mortise is disrupted. There is posterior and plantar calcaneal spurring. Ankle soft tissue swelling is present. IMPRESSION: 1. Left ankle trimalleolar fracture/dislocation. 2. No proximal left tibial or fibular fracture. ACT 112: Negative or not required by law. Electronically signed by: Adan Bacon M.D. 07/30/2020 2:45 PM XR chest 1V portable CLINICAL HISTORY: eval for pna COMPARISON STUDY: Chest radiograph and chest CT July 06, 2020. FINDINGS: No pneumothorax or pleural effusion is noted. Left subclavian Infu se-a-Port is in place. There is no evidence for pulmonary edema. Linear left midlung opacity favors atelectasis or scarring. The left upper lobe mass is better depicted on recent chest CT. Cardiac size is normal. Mediastinal contours are unremarkable. IMPRESSION: No acute cardiopulmonary findings. ACT 112: Negative or not required by law. Electronically signed by: Adan Bacon M.D. 07/30/2020 2:38 PM XR ankle LT 2V CLINICAL HISTORY: post reduction COMPARISON: Left ankle radiographs July 30, 2020 at 2:09 PM. FINDINGS: Overlying cast is noted. Alignment of the trimalleolar fracture of the left ankle has markedly improved. Oblique distal left fibular fracture is mildly displaced. Distal left tibial fractures are minimally displaced. Alignment of the tibiotalar joint has markedly improved as well with mild residual medial ankle mortise widening. IMPRESSION: Marked improvement in alignment of the left trimalleolar fracture/dislocation status post reduction. ACT 112: Negative or not required by law. Electronically signed by: Adan Bacon M.D. 07/30/2020 3:45 PM ECG Data Attestation: I personally reviewed and interpreted this ECG as follows: Indication: + syncope Rate (beats per minute): 66 Rhythm: + normal sinus ECG [place]: + Normal ECG ST segments: no ST elevation ECG Findings: no PVCs MDM Narrative I did evaluate the patient as noted above. The patient is presenting with left ankle pain after having a near syncopal or syncopal episode. She denies any head or neck injury. She has significant pain and deformity to her left ankle. She was given IV fentanyl 100 mcg prior to arrival. She is still having significant pain and so I did treat her with Dilaudid 0.5 mg IV. I did order and personally reviewed the images of the patient's chest/left tib-fib and ankle x-rays as described above. She has a trimalleolar fracture of the left ankle with dislocation. I did place an order for continuous cardiac monitoring. The monitor showed normal sinus rhythm at a rate of 78 bpm. I did order and personally review the patient's 12-lead EKG as described above. She has no acute ischemic changes. On reassessment she still has significant pain. She does state that she had a few sips of cauliflower soup at 12:00 today. At this time I did not feel we could wait to perform the fracture dislocation reduction as the patient is having severe uncontrollable pain. I did review risks and benefits of reduction under conscious sedation with her. She did consent to the procedure. I did discuss case with Dr. Lambert of orthopedics. I did perform conscious sedation while he performed fracture dislocation reduction with splint placement. Postreduction film was obtained and showed good alignment. The patient states her pain is now gone. I did order and review the patient's blood work as noted in the electronic medical record. She has significant leukocytosis with a white count of 24,000. She denies having any infectious symptoms. Her chest x-ray is clear. I did order urine analysis but she has not been able to give us a sample. I will order a Coombs catheter. She has chronic anemia. Her potassium is 2.6 but her creatinine is 2.38. This is likely from dehydration. She was given a liter normal saline here. Covid testing was negative. I did discuss the test results with the patient. She will be hospitalized for further care and evaluation. I did discuss case with the hospitalist and lead case manager. Impression & Plan JOSE ANTONIO (acute kidney injury), Near syncope, Trimalleolar fracture of left ankle, Leukocytosis, Hypokalemia Discharge Plan Visit Data Chief Complaint: Ankle Pain Stated Complaint: syncope ED Provider: Antonio Becerril Discharge Problem: JOSE ANTONIO (acute kidney injury), Near syncope, Trimalleolar fracture of left ankle, Leukocytosis, Hypokalemia Patient Disposition: Admitted As Inpatient Discharge Instructions Interventions: ED Discharge Assessment Last Done: 07/30/20 17:48 Discharge Problem: Trimalleolar fracture of left ankle Qualifiers: Encounter type: initial encounter Fracture type: closed Qualified Code(s): S82.852A - Displaced trimalleolar fracture of left lower leg, initial encounter for closed fracture Leukocytosis Qualifiers: Leukocytosis type: unspecified Qualified Code(s): D72.829 - Elevated white blood cell count, unspecified
--- NOTE | 2020-07-30 14:38 | XRay Report ---
XR ankle LT 2V CLINICAL HISTORY: Fall. COMPARISON: None FINDINGS: Note is made of a trimalleolar fracture/dislocation of the left ankle. Specifically, there is an acute moderately displaced fracture of the medial malleolus. There is an acute angulated mildl y displaced fracture through distal shaft of the left fibula. There is a probable additional fracture through the posterior malleolus. Ankle mortise is disrupted. Soft tissue swelling is present. There is moderate plantar and mild posterior calcaneal spurring. IMPRESSION: Trimalleolar fracture/dislocation of the left ankle. ACT 112: Negative or not required by law. Electronically signed by: Adan Bacon M.D. 07/30/2020 2:36 PM
--- NOTE | 2020-07-30 14:39 | XRay Report ---
XR chest 1V portable CLINICAL HISTORY: eval for pna COMPARISON STUDY: Chest radiograph and chest CT July 06, 2020. FINDINGS: No pneumothorax or pleural effusion is noted. Left subclavian Pqxhan-j-Khkp is in place. Th ere is no evidence for pulmonary edema. Linear left midlung opacity favors atelectasis or scarring. T he left upper lobe mass is better depicted on recent chest CT. Cardiac size is normal. Mediastinal co ntours are unremarkable. IMPRESSION: No acute cardiopulmonary findings. ACT 112: Negative or not required by law. Electronically signed by: Adan Bacon M.D. 07/30/2020 2:38 PM
--- NOTE | 2020-07-30 14:44 | Pre Anesthesia Assessment ---
Date of Service July 30, 2020 Pre Sedation Assessment Vital Signs Temp Pulse Pulse Resp BP BP Pulse Ox 07/30/20 16:05 75 107/40 L 99 07/30/20 16:00 84 07/30/20 15:58 82 16 113/68 07/30/20 15:57 80 16 122/76 98 07/30/20 15:55 80 16 127/71 99 07/30/20 15:50 79 14 107/65 99 07/30/20 15:45 79 16 122/75 99 07/30/20 15:40 74 16 127/71 98 07/30/20 15:35 81 16 131/71 95 07/30/20 15:30 75 117/64 98 07/30/20 15:25 74 115/68 97 07/30/20 15:20 71 137/63 100 07/30/20 15:15 69 144/75 H 99 07/30/20 15:10 73 96 07/30/20 15:05 81 132/72 100 07/30/20 15:00 77 137/75 100 07/30/20 14:55 73 128/82 100 07/30/20 14:50 80 07/30/20 14:47 80 16 99/77 L 99 07/30/20 14:45 80 14 99 07/30/20 14:43 76 16 98 07/30/20 14:41 77 13 100/50 L 99 07/30/20 14:40 82 15 90/61 L 100 07/30/20 14:39 80 15 109/52 L 07/30/20 14:35 76 21 99 07/30/20 14:32 64 20 113/60 97 07/30/20 14:30 73 17 96/60 L 100 07/30/20 14:25 73 18 99 07/30/20 14:20 69 17 99 07/30/20 14:15 70 17 99 07/30/20 14:13 70 18 98 07/30/20 14:12 36.8 C 64 20 113/60 97 07/30/20 14:07 71 22 113/60 98 Pre-Sedation Airway Assessment Smoking Status: Former smoker Hx Sleep Apnea: No Hx Difficult Intubation: No Notes The planned sedation has been discussed with the patient. Informed Consent was obtained. I have identified the patient, determined the appropriateness of sedation and have assessed the patient immediately prior to the procedure. All medicine(s) and interventions are by my order.
--- NOTE | 2020-07-30 14:46 | XRay Report ---
XR tibia fibula LT 2V CLINICAL HISTORY: fall eval for fx COMPARISON: Left knee radiographs November 28, 2016. FINDINGS: No proximal left tibial or fibular fracture is noted. Alignment of the left knee is anatom ic. Note is made of a moderately displaced fracture of the medial malleolus as well as a suspected fr acture of the posterior malleolus of the left tibia. There is an acute oblique mildly displaced dista l left fibular fracture. Ankle mortise is disrupted. There is posterior and plantar calcaneal spurrin g. Ankle soft tissue swelling is present. IMPRESSION: 1. Left ankle trimalleolar fracture/dislocation. 2. No proximal left tibial or fibular fracture. ACT 112: Negative or not required by law. Electronically signed by: Adan Bacon M.D. 07/30/2020 2:45 PM
[2020-07-30 14:49] LABS: Basophils # (auto) 0.04 K/uL (0-0.2); Basophils % (auto) 0.2 %; Eosinophils # (auto) 0.02 K/uL (0-0.5); Eosinophils % (auto) 0.1 %; Immature Granulocytes # (auto) 2.37 K/uL (0.00-0.02); Immature Granulocytes % (auto) 9.6 %; Lymphocytes # (auto) 0.81 K/uL (1.2-3.4); Lymphocytes % (auto) 3.3 %; Monocytes # (auto) 0.01 K/uL (0.11-0.59); Neutrophils # (auto) 21.49 K/uL (1.4-6.5); Neutrophils % (auto) 86.8 %
[2020-07-30] MEDS ORDERED: PROPOFOL IV EMULSION 10 MG/ML 20 ML VIAL IV ONE (14:54)
[2020-07-30] MEDS ORDERED: KETAMINE HCL INJ 50 MG/ML 10 ML VIAL ONE (14:55)
[2020-07-30 15:01] LABS: Alanine Aminotransferase 27 U/L (12-78); Albumin Level 3.3 gm/dl (3.4-5.0); Aspartate Aminotransferase 17 U/L (15-37); Blood Urea Nitrogen 40 mg/dl (7-18); Calcium 8.6 mg/dl (8.5-10.1); Carbon Dioxide 33 mmol/L (21-32); Chloride 95 mmol/L (98-107); Creatinine Clr Calc Pharmacy 23.8 ml/min; Est GFR (African American) 25.2; Est GFR (Non-African American) 21.8; Glucose 128 mg/dl (70-99); Magnesium 1.9 mg/dl (1.8-2.4); Potassium 2.6 mmol/L (3.5-5.1); Sodium 135 mmol/L (136-145)
[2020-07-30] MEDS ORDERED: KETAMINE HCL INJ 50 MG/ML 10 ML VIAL IV ONE (15:06)
[2020-07-30] MEDS: PROPOFOL IV EMULSION 10 MG/ML 20 ML VIAL IV SCH (15:08)
[2020-07-30 15:12] LABS: Albumin Globulin Ratio 1.1 (0.9-2); Alkaline Phosphatase 103 U/L (45-117); Bilirubin,Total 1.4 mg/dl (0.2-1); Total Protein 6.3 gm/dl (6.4-8.2); Troponin I < 0.015 ng/ml (0-0.045)
--- NOTE | 2020-07-30 15:46 | XRay Report ---
XR ankle LT 2V CLINICAL HISTORY: post reduction COMPARISON: Left ankle radiographs July 30, 2020 at 2:09 PM. FINDINGS: Overlying cast is noted. Alignment of the trimalleolar fracture of the left ankle has rob edly improved. Oblique distal left fibular fracture is mildly displaced. Distal left tibial fractures are minimally displaced. Alignment of the tibiotalar joint has markedly improved as well with mild r esidual medial ankle mortise widening. IMPRESSION: Marked improvement in alignment of the left trimalleolar fracture/dislocation status post reduction. ACT 112: Negative or not required by law. Electronically signed by: Adan Bacon M.D. 07/30/2020 3:45 PM
--- NOTE | 2020-07-30 16:10 | History & Physical Report ---
Date of Service July 30, 2020 Assessment & Plan (1) Near syncope: - Admit to med tele - Check 2 D echo - No LOC - BP stable - Seems to more history to support a mechanical fall and dehydration vs cardiac cause at this point. (2) Trimalleolar fracture of left ankle: - Evaluated by Dr. Lambert in the ER, reduced, obtaining CT ankle now- with hypokalemia and JOSE ANTONIO, pt better suited to take to the OR tomorrow morning after improvement in labs, follow - Will make NPO after midnight - Pain control ordered - Bowel regimen - Continue PT/OT per ortho service, currently non-weight bearing (3) Leukocytosis: -Infectious work-up pending, blood cultures ( 1 periph and other through mediport), UA and urine culture (4) Hypokalemia: - 2.6 on admission, replace via IV 20 mwq x 2 through mediport, unable to tolerate much PO intake due to esophagitis at this time - Follow a.m. BMP (5) Small cell lung cancer: -Originally diagnosed March 2020, involving left upper lobe mass next to mediastinum, stage IIIa T3, N2, M0. Bilateral solid pulmonary nodules, s/p XRT finished 06/30/2020 and chemotherapy, completed cisplatin and etoposide treatment. -Last chemotherapy cycle 4 on 07/18/2020. -Recently underwent EGD on 07/07 found to have severe radiation esophagitis and esophageal spasms, was discharged on twice daily PPI and Carafate, diltiazem for esophageal spasms and nitro as needed for chest pain at home. -Follows with Dr. Lance as outpatient- will consult - appreciate recs (6) Esophagitis: - cont BID PPI and Carafate - Magic swizzel prn for pain, swish and swallow as needed - Allow full liquid diet - npo after midnight - Dehydration secondary to poor oral intake, continue NSS at 125 ml/hr x 2L. (7) Hypertension: Continue diltiazem 240 mg daily-for esophageal spasm as above (8) Hypercholesterolemia: -Continue atorvastatin 10 mg (9) Depression: -History of such (10) Restless leg syndrome: - Noted- currently stable (11) GERD (gastroesophageal reflux disease): -Protonix, Carafate (12) DVT prophylaxis: - teds, scds, no chemical ppx in light of anticipated OR within 24 hrs. CODE: FULL Dispo: From home, likely to remain in the hospital x 1-2 days History of Present Illness Primary Care Provider: Jane Ortiz DO 60-year-old female PMHx of history of small cell lung carcinoma status post chemotherapy and radiation, dysphagia, HTN, HLD, depression, presents after a near syncopal episode without any LOC. She is walking from living room to kitchen when she went to sit down her left foot gave out from underneath her, and she went down to the ground. She heard the bones crunch, and was able to situate herself to elevate her leg until ambulance arrived. She was evaluated in the ER and found to have a left ankle fracture/dislocation and was evaluated by Dr. Lambert, and the ankle was reduced while in the ER. She was also noted to be hypokalemic, have elevated leukocytosis with WBC = 24.7, and have JOSE ANTONIO with elevated BUN = 40, creatinine = 2.38. Her appetite has been very poor recently due to esophagitis where she was recently hospitalized at the end of June. At that point time she was placed on PPI twice daily and Carafate, as well as diltiazem for esophageal spasm. Initially this regimen worked very well, but still reports having poor appetite and limited water intake due to pain and ulcers in her mouth. She has lost a total of 20 pounds since starting chemotherapy. She recently finished cycle 4 and has completed chemo. She was scheduled for PET scan as an outpatient this Friday, however likely will need to move this to later in the week pending her course here during this hospitalization. Her was present at bedside and supported the history. Allergies Allergy/AdvReac Type Severity Reaction Status Date / Time lisinopril AdvReac Mild Cough Verified 07/30/20 16:23 Home Medications Home Medications Medication Instructions Recorded Confirmed Type ondansetron HCl 8 mg PO DAILY PRN 05/29/20 07/30/20 History prochlorperazine maleate 10 mg PO Q6H PRN 05/29/20 07/30/20 History sucralfate 1 gram tablet 1 g PO Q6H #120 tab 06/12/20 07/30/20 Rx fenofibrate nanocrystallized 48 mg 48 mg PO QAM #90 tab 06/13/20 07/30/20 Rx tablet diltiazem HCl [Tiadylt ER] 240 mg PO DAILY #30 cap 07/09/20 07/30/20 Rx nitroglycerin [Nitrostat] 0.4 mg SUBLINGUAL Q3H PRN #20 tab 07/09/20 07/30/20 Rx hydrocodone 7.5 mg-acetaminophen 15 ml PO Q6H PRN #473 ml 07/10/20 07/30/20 Rx 325 mg/15 mL oral solution atorvastatin 10 mg tablet 10 mg PO HS #30 tab 07/21/20 07/30/20 Rx pantoprazole 40 mg tablet,delayed 40 mg PO BID #60 tab 07/21/20 07/30/20 Rx release Past Med/Surg History Medical History Arthritis Bilat Knees & lower back Depression GERD (gastroesophageal reflux disease) Hypercholesterolemia Hypertension Restless leg syndrome Small cell lung cancer (04/21/20) Surgical History H/O arthroscopic knee surgery 1998 RIGHT/ 2010 LEFT H/O tubal ligation 1991 H/O: section x2 1987 & 1982 History of bronchoscopy (04/21/20) 04/21/2020 - with positive biopsy History of excision of pilonidal cyst 1987 History of tooth extraction molars Port-A-Cath in place (05/25/20) Insertion of Mediport Left Subclavian with Fluoroscopy Dr. Ramos 05/25/2020 S/P carpal tunnel release 1989's / 2014 LEFT S/P tonsillectomy Age 4 Family History Mother , Passed age 64 of pancreatic cancer Hypertension Cancer Father Hearing loss Grandmother (Maternal) , Passed age 79 of Stomach Cancer No problems noted. Uncle , Passed in 80's of Colorectal Cancer No problems noted. Brother No problems noted. Brother No problems noted. Sister No problems noted. Grandfather (Maternal) , Passed age 89 of Bladder Cancer No problems noted. Son No problems noted. Daughter No problems noted. Grandmother Cancer Grandfather Cancer Other No family history of allergies No family history of bleeding disorder Denies family history of Ovarian cancer Heart disease Breast cancer Lung cancer Asthma Social History Smoking Status: Former smoker Tobacco Type: Cigarettes Age Started Using Tobacco: 20; Age Quit Using Tobacco: 60; packs per day: 1; Years Smoked: 40; Second Hand Exposure: No; Hx Alcohol Use: No Hx Substance Use: No Preferred Language: [place]ill[place] Communication Ability: Effective Visual Impairment: No Limitations Hearing Ability: Normal Electrical Appliance Preparer Required: No Beliefs That Will Affect Care: None marital status: Current Living Situation: Spouse current occupational status: employed 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 How many Children do You have: 2 Other Information That Helps Us Care for You: No Feels Safe at Home: Yes Safety Concerns: Feels Safe At This Time Childhood Exposure to Second-Hand Smoke: Yes caffeine: Yes (ice tea) during the past year weight has: remained stable Dental Care, Regularly: Yes Physical Activity Frequency: Does not Exercise Seatbelt Use: always Sunscreen Use: No Assistive Devices: None Review of Systems Review of Systems: Constitutional: No fever, sweats or chills Eyes: No diplopia, no worsening or blurred vision ENT: + oral ulcerations, normal hearing, + dysphagia, + poor oral intake Respiratory: No cough, sputum, dyspnea at rest or on exertion Cardiovascular: No chest pain, tightness or palpitations Abdomen: No pain, nausea, vomiting, diarrhea or constipation Musculoskeletal: + Left ankle joint pain, no calf pain, swelling Neurologic: No weakness, numbness/tingling, sensation to light touch of her left foot intact, no balance problems Psychiatric: No anxiety or depression Skin: No rash or itch Physical Exam Physical Exam: General: awake, alert, no apparent distress, + alopecia Head: Normocephalic, atraumatic ENT: PERRL, EOMI, no pharyngeal exudate, mucous membranes moist Chest: Clear to auscultation, on room air, no adventitious breath sounds Cardiac: Regular rate and rhythm, + soft systolic murmur grade 3/6, no JVD, normal peripheral pulses, good capillary refill Abdominal: NABS x 4 quadrants, soft, nondistended, nontender to palpation, no rebound or guarding Extremities: LLE wrapped in Pérez and casted, elevated on pillows otherwise normal inspection, no peripheral edema or erythema, calfs nontender to palpation Psych: Normal mood and affect Neuro: AAO x 3, strength intact bilaterally and rated 5/5, no motor deficits, speech is clear, no peripheral sensory deficits, light touch sensation intact in the distal left lower extremity. Constitutional: WD/WN, vitals as above Eyes: normal visual baez by confrontation and + anicteric sclerae Neck: normal visual inspection and trachea midline Respiratory: normal respiratory effort, lungs clear to auscultation Cardiovascular: Rate/Rhythm: regular rate and regular rhythm Gastrointestinal (Abdomen): Inspection/Auscultation: abdomen not distended Percussion/Palpation: abdomen soft; abdomen nontender Musculoskeletal: Head/Neck/Chest: normocephalic and head atraumatic Neg for peripheral LE edema, + pedal pulses Skin: no rashes, warm and dry Neurologic: awake; not confused Speech / Cognition: normal speech Psychiatric: A+Ox3, euthymic affect Lymphatic: Exam as done by Aida Smith DO Results & Data Results & Data ([facility]) Vital Signs (Past 12 Hours) Vital Signs Temp Pulse Pulse Resp BP BP Pulse Ox 07/30/20 15:20 71 137/63 100 07/30/20 15:15 69 144/75 H 99 07/30/20 15:10 73 96 07/30/20 15:05 81 132/72 100 07/30/20 15:00 77 137/75 100 07/30/20 14:55 73 128/82 100 07/30/20 14:50 80 07/30/20 14:47 80 16 99/77 L 99 07/30/20 14:45 80 14 99 07/30/20 14:43 76 16 98 07/30/20 14:41 77 13 100/50 L 99 07/30/20 14:40 82 15 90/61 L 100 07/30/20 14:39 80 15 109/52 L 07/30/20 14:35 76 21 99 07/30/20 14:32 64 20 113/60 97 07/30/20 14:30 73 17 96/60 L 100 07/30/20 14:25 73 18 99 07/30/20 14:20 69 17 99 07/30/20 14:15 70 17 99 07/30/20 14:13 70 18 98 07/30/20 14:12 36.8 C 64 20 113/60 97 07/30/20 14:07 71 22 113/60 98 Diagnostic Findings XR ankle LT 2V CLINICAL HISTORY: post reduction COMPARISON: Left ankle radiographs July 30, 2020 at 2:09 PM. FINDINGS: Overlying cast is noted. Alignment of the trimalleolar fracture of the left ankle has markedly improved. Oblique distal left fibular fracture is mildly displaced. Distal left tibial fractures are minimally displaced. Alignment of the tibiotalar joint has markedly improved as well with mild residual medial ankle mortise widening. IMPRESSION: Marked improvement in alignment of the left trimalleolar fracture/dislocation status post reduction. XR chest 1V portable CLINICAL HISTORY: eval for pna COMPARISON STUDY: Chest radiograph and chest CT July 06, 2020. FINDINGS: No pneumothorax or pleural effusion is noted. Left subclavian Ahioss-p-Hkna is in place. There is no evidence for pulmonary edema. Linear left midlung opacity favors atelectasis or scarring. The left upper lobe mass is better depicted on recent chest CT. Cardiac size is normal. Mediastinal contours are unremarkable. IMPRESSION: No acute cardiopulmonary findings. XR tibia fibula LT 2V CLINICAL HISTORY: fall eval for fx COMPARISON: Left knee radiographs November 28, 2016. FINDINGS: No proximal left tibial or fibular fracture is noted. Alignment of the left knee is anatomic. Note is made of a moderately displaced fracture of the medial malleolus as well as a suspected fracture of the posterior malleolus of the left tibia. There is an acute oblique mildly displaced distal left fibular fracture. Ankle mortise is disrupted. There is posterior and plantar calcaneal spurring. Ankle soft tissue swelling is present. IMPRESSION: 1. Left ankle trimalleolar fracture/dislocation. 2. No proximal left tibial or fibular fracture. XR ankle LT 2V CLINICAL HISTORY: Fall. COMPARISON: None FINDINGS: Note is made of a trimalleolar fracture/dislocation of the left ankle. Specifically, there is an acute moderately displaced fracture of the medial malleolus. There is an acute angulated mildly displaced fracture through distal shaft of the left fibula. There is a probable additional fracture through the posterior malleolus. Ankle mortise is disrupted. Soft tissue swelling is present. There is moderate plantar and mild posterior calcaneal spurring. IMPRESSION: Trimalleolar fracture/dislocation of the left ankle. Supervising Physician Co-Signing Physician Notes Pt seen and examined by me. Denies chest pain or SOB. She was able to tolerate ice cream on her dinner tray tonight. Pt has been having issues with PO intake recently due esophagitis felt related to her radiation tx. Her intake has been low. Also having low UOP lately. She states no other issues currently however, until today when she became lightheaded and thought she would pass out. She tried to lower herself down, but ultimately fell onto her ankle. Does have pain to the ankle that is being helped with pain meds overall. Agree with HPI/ROS as noted by PA See above for my exam in PE section Agree with plan as outlined above L ankle fracture, awaiting OR I did d/w Dr. Lambert who saw pt in the ED, planning for OR on Friday to allow for tx of below HypoK, JOSE ANTONIO likely related to PO intake issues Replete K, IVF and monitor Leukocytosis, likely related to recent neulasta use CXR neg for infection UA, blood cx pending Monitor PG Care Time/CCT Total # of Minutes Spent Total Time Spent with Patient: Total time spent is greater than 50% in coordi nation of care (as documented) at patient's floor/unit and/or counseling patient: Coding Level of Care Code 63149 Initial Inpt Care Lvl 3 Diagnoses Near syncope R55 Trimalleolar fracture of left ankle S82.852A Leukocytosis D72.829 Hypokalemia E87.6 Small cell lung cancer C34.90 Esophagitis K20.90 Hypertension I10 Hypercholesterolemia E78.00 Depression F32.9 Restless leg syndrome G25.81 GERD (gastroesophageal reflux disease) K21.9 DVT prophylaxis Z29.9
[2020-07-30 16:26] LABS: INR 1.2 (0.9-1.1); Prothrombin Time 12.4 Seconds (9.0-12.0)
--- NOTE | 2020-07-30 16:32 | Consultation Report ---
DATE OF CONSULTATION: 07/30/2020 CHIEF COMPLAINT AND REASON FOR CONSULTATION: Left ankle injury. HISTORY OF PRESENT ILLNESS: Lori is 60. She unfortunately has a history of small cell lung cancer and has recently finished on chemotherapy. She became lightheaded earlier today and fell down, injuring her left ankle. She complains of pain in the left ankle only. PAST MEDICAL HISTORY: Significant for esophageal ulcer and esophagitis, acute kidney injury. She has had neutropenia and chemotherapy-induced pancytopenia. Small cell lung cancer, depression. OUTPATIENT MEDICATIONS: Include atorvastatin, diltiazem, fenofibrate, hydrocodone, nitroglycerin, ondansetron, pantoprazole, prochlorperazine, sucralfate. ALLERGIES: LISINOPRIL, WHICH CAUSES A COUGH. PHYSICAL EXAMINATION: She has a 1+ palpable dorsalis pedis and posterior tibial pulses. The skin is closed. There is a deformity of the ankle. She can wiggle her toes, but cannot move her ankle. The knee, leg and foot are nontender. Swelling is minimal. Sensation intact throughout. Radiographs of the tib-fib and ankle demonstrate a trimalleolar fracture of the ankle with anterior displacement of the talus. CONSENT: Verbal informed consent is obtained. We discussed risks, which include bleeding, pain, scarring, injury to nerves, blood vessels, joint, tendon, ligament, recurrent instability, arthritis. After an adequate analgesia was administered by Dr. Becerril via conscious sedation, a gentle closed reduction maneuver was performed by flexing the knee and applying anterior pressure under the heel resulting in reduction. A molded and well-padded posterior splint with U-stirrup was applied with the ankle in neutral position. Post-reduction neurovascular function intact. Post-reduction x-rays show improvement in alignment. There is a fracture of the medial, lateral and posterior malleoli. A CT scan is ordered. IMPRESSION: 1. Small cell lung cancer. 2. Trimalleolar fracture dislocation, left ankle. PLAN: The patient is to be admitted to the hospital by medicine for treatment and workup of her syncopal episode. She will need surgical intervention of her ankle consisting of open reduction and internal fixation. This can be done whenever she is medically stable and will depend in large part upon her swelling. If she does not swell a lot, we could do the surgery within the next couple days. If there is significant swelling, we may need to wait 7-12 days to perform surgery. Rapid COVID test. Elevate the leg, apply ice, nonweightbearing. Posterior splint. Mechanical devices for DVT prophylaxis until we can figure out when her surgery will be. If we are going to not perform surgery within the next day or two, then I think starting her on anticoagulation prophylactically such as Lovenox will be appropriate.
--- NOTE | 2020-07-30 17:06 | Emergency Department Note ---
Post Sedation Assessment Vital Signs Temp Pulse Pulse Resp BP BP Pulse Ox 07/30/20 17:00 64 16 113/60 99 07/30/20 16:30 64 16 117/67 99 07/30/20 16:05 75 107/40 L 99 07/30/20 16:00 84 07/30/20 15:58 82 16 113/68 07/30/20 15:57 80 16 122/76 98 07/30/20 15:55 80 16 127/71 99 07/30/20 15:50 79 14 107/65 99 07/30/20 15:45 79 16 122/75 99 07/30/20 15:40 74 16 127/71 98 07/30/20 15:35 81 16 131/71 95 07/30/20 15:30 75 117/64 98 07/30/20 15:25 74 115/68 97 07/30/20 15:20 71 137/63 100 07/30/20 15:15 69 144/75 H 99 07/30/20 15:10 73 96 07/30/20 15:05 81 132/72 100 07/30/20 15:00 77 137/75 100 07/30/20 14:55 73 128/82 100 07/30/20 14:50 80 07/30/20 14:47 80 16 99/77 L 99 07/30/20 14:45 80 14 99 07/30/20 14:43 76 16 98 07/30/20 14:41 77 13 100/50 L 99 07/30/20 14:40 82 15 90/61 L 100 07/30/20 14:39 80 15 109/52 L 07/30/20 14:35 76 21 99 07/30/20 14:32 64 20 113/60 97 07/30/20 14:30 73 17 96/60 L 100 07/30/20 14:25 73 18 99 07/30/20 14:20 69 17 99 07/30/20 14:15 70 17 99 07/30/20 14:13 70 18 98 07/30/20 14:12 36.8 C 64 20 113/60 97 07/30/20 14:07 71 22 113/60 98 Recovery Score Activity: Moves 4 extremities Respiration: Deep Breath/Cough Circulation: +/-20% PreAnes Value Consciousness: Fully Awake Oxygen Saturation: > 92% On Room Air Post Anesthesia Score: 10 Discharge Sedation Unexpected Event: None Post Sedation Plan On clinical assessment, the patient appears to have tolerated the sedation without complications. Patient is recovering as anticipated. Patient will continue to be monitored by nursing and may be discharged when sedation discharge criteria are met per below protocol. Upon Completions of procedure up to 15 minutes continue every 5 minute vital signs and the P.A.R. score; then discharge to a Phase I or Fast Track to Phase II per the following guidelines: * Discharge Patient to appropriate Phase II area if PAR is 8 or greater or return to pre- procedure baseline. The post - procedure orders will be as directed. * If PAR score is less than 8 or not return to pre-procedure baseline then patient will follow Phase I monitoring till PAR is reached for Phase II. The Phase I may be done in procedure room or may call to secure a Phase I area. * If naloxone or flumazenil are used for reversal, hold in Phase I for continued monitoring from when last reversal dose was given for a minimum of 60 minutes or longer pending the nurse and/or physician discretion of patient condition before discharge to Phase II. Please call the Sedation Physician to re-evaluate and complete post-note for discharge to Phase II area. Do NOT discharge from procedure sedation or Phase 1 until post- sedation evaluation note is complete by procedure /sedation MD Sedation Discharge Instructions to be given to the patient at discharge to home. Sedation Data Sedation Times Sedation Start Date: 07/30/20 Sedation Start Time: 15:06 Sedation End Date: 07/30/20 Sedation End Time: 15:18 Total Sedation Time: 12 Procedure Times Procedure Start Time:: 15:06 Procedure End Time: 15:16 : Trimalleolar fracture of left ankle Qualifiers: Encounter type: initial encounter Fracture type: closed Qualified Code(s): S82.852A - Displaced trimalleolar fracture of left lower leg, initial encounter for closed fracture Leukocytosis Qualifiers: Leukocytosis type: unspecified Qualified Code(s): D72.829 - Elevated white blood cell count, unspecified
--- NOTE | 2020-07-30 17:09 | CT Scan Report ---
CT ankle LT wo con CLINICAL HISTORY: Fracture. COMPARISON STUDY: Left ankle radiographs performed earlier today. TECHNIQUE: Axial images of the left ankle were obtained without IV contrast. Sagittal and coronal rec onstructions were viewed. Automated exposure control was utilized for the study. A dose lowering boom hnique was utilized adhering to the principles of ALARA. FINDINGS: Overlying cast is noted. There is mild residual ankle mortise widening, significantly impro bishop since pre reduction radiographs. Alignment of the fracture of the posterior malleolus is nearly a natomic. Oblique mildly displaced distal left fibular fracture is noted as well as a mildly displaced fracture of the medial malleolus. Alignment of these fractures is also significantly improved since reduction radiographs. There are a few punctate bone fragments within the tibiotalar joint shown on a xial image 237 of 452. These measure up to 2 mm. A 1.6 mm tiny bone fragment projects over the medial ankle mortise. Talar dome is intact. No acute calcaneal fracture is noted. There is moderate plantar and mild posterior calcaneal spurring. No fracture is identified within visualized portions of the l eft midfoot. Left ankle soft tissue swelling is noted. IMPRESSION: 1. Left ankle trimalleolar fracture/dislocation with significant improvement in alignment since prere duction radiographs. Posterior malleolus fracture minimally displaced. Medial malleolar and distal le ft fibular fractures mildly displaced. Mild residual ankle mortise widening. A few locules of gas adj acent to the distal left tibia are likely related to the fracture. An open fracture is considered les s likely however clinical correlation is recommended. 2. A few small bone fragments measuring up to 2 mm within the tibiotalar joint. ACT 112: Negative or not required by law. Electronically signed by: Adan Bacon M.D. 07/30/2020 5:07 PM
[2020-07-30] MEDS ORDERED: POTASSIUM CHLORIDE / WTR 20 MEQ/100 ML PLCT IV STA (17:14)
[2020-07-30] MEDS ORDERED: ERGOCALCIFEROL 50,000 UNITS 1250 MCG CAP PO ONE (17:45)
[2020-07-30] MEDS ORDERED: NITROGLYCERIN SL 0.4 MG/TAB TAB SL PRN (18:31)
[2020-07-30] MEDS ORDERED: POLYETHYLENE (MIRALAX) 17 GM PACK PO PRN (18:31)
[2020-07-30] MEDS ORDERED: ACETAMINOPHEN 325 MG TAB PO PRN (18:31)
[2020-07-30] MEDS ORDERED: ONDANSETRON 8MG OD TAB PO PRN (18:49)
[2020-07-30] MEDS: HYDROmorphone INJ 0.5 MG/0.5 ML SYR IV PRN ×2 (19:29→22:45)
[2020-07-30] MEDS: NSS + 20MEQ KCL 20 MEQ/1,000 ML BAG IV SCH (20:24)
[2020-07-30] MEDS: ATORVASTATIN 10 MG TAB PO SCH (22:14)
[2020-07-30] MEDS: PANTOprazole 40 MG TAB PO SCH (22:14)
[2020-07-30] MEDS: SUCRALFATE 1 GM TAB PO SCH (22:16)
[2020-07-31] MEDS: HYDROmorphone INJ 0.5 MG/0.5 ML SYR IV PRN ×6 (03:44→23:01)
[2020-07-31] MEDS: NSS + 20MEQ KCL 20 MEQ/1,000 ML BAG IV SCH ×3 (04:00→23:01)
[2020-07-31 07:08] LABS: Hematocrit (blood only) 24.1 % (37-47); Hemoglobin 8.5 g/dL (12.0-16.0); Mean Corpuscular Hemoglobin 31.6 pg (25-34); Mean Corpuscular Hgb Conc 35.3 g/dL (32-36); Mean Corpuscular Volume 89.6 fL (80-100); Mean Platelet Volume 10.3 fL (7.4-10.4); Platelet Count 72 K/uL (130-400); RDW Coefficient of Variation 15.8 % (11.5-14.5); RDW Standard Deviation 51.3 fL (36.4-46.3); Red Blood Count 2.69 M/uL (4.2-5.4); White Blood Count 10.94 K/uL (4.8-10.8)
[2020-07-31 07:09] LABS: Albumin Globulin Ratio 1.1 (0.9-2); Albumin Level 2.6 gm/dl (3.4-5.0); BUN Creatinine Ratio 19.7 (10-20); Calcium 7.8 mg/dl (8.5-10.1); Creatinine Clr Calc Pharmacy 30.9 ml/min; Est GFR (African American) 34.4; Est GFR (Non-African American) 29.7; Globulin 2.3 gm/dl (2.5-4.0); Magnesium 1.7 mg/dl (1.8-2.4); Phosphorus 3.8 mg/dl (2.5-4.9); Potassium 3.1 mmol/L (3.5-5.1); Total Protein 4.9 gm/dl (6.4-8.2)
[2020-07-31 07:10] LABS: Platelet Estimate Decreased (Normal)
[2020-07-31] MEDS ORDERED: POTASSIUM PHOS 3 MMOL/1 ML INFUSION IV STA (08:43)
[2020-07-31] MEDS ORDERED: POTASSIUM PHOSPHATE 15 MMOL in SODIUM CHLORIDE 0.9% 250 ML IV ONE (09:00)
[2020-07-31] MEDS: SUCRALFATE 1 GM TAB PO SCH ×4 (09:26→20:26)
[2020-07-31] MEDS: bisacodyL 5 MG TABEC PO SCH (09:27)
[2020-07-31] MEDS: PANTOprazole 40 MG TAB PO SCH ×2 (09:27→20:27)
[2020-07-31] MEDS: FENOFIBRATE NANOCRYSTALLIZED 48 MG TABLET PO SCH (09:28)
[2020-07-31] MEDS: MAGNESIUM SULFATE / D5W 1 GM/100 ML BAG IV SCH ×2 (09:28→09:29)
[2020-07-31] MEDS: dilTIAZem HCL 240 MG CAPCR PO SCH ×2 (09:28→11:32)
[2020-07-31 09:37] LABS: Appearance Urine Clear (Clear); Bacteria Urine Automated Negative (Negative); Bilirubin Urine Negative (Negative); Blood Urine Negative (Negative); Cast Urine Automated 0 /lpf (0-5); Color Urine Yellow; Epithelial Cell Urine Auto >30 /lpf (0-5); Glucose Urine UA 1+ (Negative); Ketones Urine Negative (Negative); Leukocyte Esterase Urine Negative (Negative); Nitrite Urine Negative (Negative); Protein Urine 1+ (Negative); RBC Urine Automated 0-4 /hpf (0-4); Specific Gravity Urine 1.015 (1.000-1.030); Urobilinogen Urine Negative (Negative)
[2020-07-31] MEDS: ONDANSETRON INJ 2 MG/ML 2 ML VIAL IV PRN ×3 (10:02→20:21)
--- NOTE | 2020-07-31 10:05 | Electrocardiogram Report ---
Test Reason : Blood Pressure : / mmHG Vent. Rate : 066 BPM Atrial Rate : 066 BPM P-R Int : 178 ms QRS Dur : 102 ms QT Int : 424 ms P-R-T Axes : 069 064 061 degrees QTc Int : 444 ms Normal sinus rhythm Cannot rule out Anterior infarct , age undetermined Abnormal ECG When compared with ECG of 06-JUL-2020 15:36, No significant change was found Confirmed by Puneet Jacob ([id number]) on 07/31/2020 10:04:30 AM Referred By: REFERRED SELF Confirmed By:Puneet Jacob
--- NOTE | 2020-07-31 11:12 | XCELERA ---
[id number]
--- NOTE | 2020-07-31 11:35 | Progress Notes ---
DATE: 07/31/2020 She is resting comfortably in bed. Her ankle pain is improved. She is afebrile. Her vital signs are stable. Her urine output is little on the low side. White count 11, hemoglobin 9, hematocrit 24, platelet count is 72. INR is 1.2. Her PRP is noted. She has improved BUN and creatinine. Potassium is slightly low. Vitamin D is 24. COVID negative. She can now flex and extend the big toe. She has difficulty extending the little toes, but can flex them. 1+ dorsalis pedis pulse with intact sensation throughout the foot. The leg is inspected after partial removal of the splint and there is minimal swelling and no blistering. The CT scan is reviewed, which demonstrates a posterior malleolar fracture, which is approaching 20% of the posterolateral aspect of the joint. She has a high fibular fracture. There is an extended medial-sided fracture of the malleolus and there is a Tillaux fracture involving the syndesmotic ligament attachment of the anterior tibiofibular ligaments. Report noted. IMPRESSION: 1. Lung cancer, on chemotherapy and radiation. 2. Trimalleolar fracture dislocation of the left ankle. PLAN: Findings are discussed with the patient. I have recommended surgery. She agrees to proceed. I have spoken to Dr. Smith about preparing the patient for surgery. We will have anesthesia preop. We spoke in regards to her lung cancer and chemotherapy. Reviewed with the patient that surgery would be necessary to stabilize the ankle, promote healing and return of function. She agrees to proceed. We talked about risks, benefits, rehab and recovery. In particular, she will be at increased risk for wound healing and bone healing problems as well as infection because of her other health problems. Risks, benefits, rehab recovery were discussed and an informed consent was obtained. She can eat today and will be n.p.o. after midnight. We will hold on any chemo DVT prophylaxis until postoperatively. She will continue to ice and elevate.
[2020-07-31 14:35] LABS: Hematocrit (blood only) 22.8 % (37-47); Hemoglobin 7.8 g/dL (12.0-16.0)
--- NOTE | 2020-07-31 16:06 | Anesthesiology Consultation ---
Date of Service July 31, 2020 Assessment & Plan Chart Review Chart Review: Acceptable Risk for Surgery and Patient NOT seen in Pre Admission Testing History Surgery Operation Date: 08/01/20 07:00 Proposed Procedures p Left Ankle Fracture Open Reduction Internal Fixation - Joselito Lambert MD Height/Weight Height: 5 ft 2 in Weight: 71.8 kg Allergies Allergy/AdvReac Type Severity Reaction Status Date / Time lisinopril AdvReac Mild Cough Verified 07/30/20 16:23 Medications Home Medications Medication Instructions Recorded Confirmed Last Taken ondansetron HCl 8 mg PO DAILY PRN 05/29/20 07/30/20 Unknown prochlorperazine maleate 10 mg PO Q6H PRN 05/29/20 07/30/20 Unknown sucralfate 1 gram tablet 1 g PO Q6H #120 tab 06/12/20 07/30/20 Unknown fenofibrate nanocrystallized 48 mg 48 mg PO QAM #90 tab 06/13/20 07/30/20 Unknown tablet diltiazem HCl [Tiadylt ER] 240 mg PO DAILY #30 cap 07/09/20 07/30/20 Unknown nitroglycerin [Nitrostat] 0.4 mg SUBLINGUAL Q3H PRN #20 tab 07/09/20 07/30/20 Unknown hydrocodone 7.5 mg-acetaminophen 15 ml PO Q6H PRN #473 ml 07/10/20 07/30/20 Unknown 325 mg/15 mL oral solution atorvastatin 10 mg tablet 10 mg PO HS #30 tab 07/21/20 07/30/20 Unknown pantoprazole 40 mg tablet,delayed 40 mg PO BID #60 tab 07/21/20 07/30/20 Unknown release Active Medications Generic Name Dose Route Start Last Admin Trade Name Freq PRN Reason Stop Dose Admin Atorvastatin Calcium 10 mg 07/30/20 21:00 07/30/20 22:14 Atorvastatin 10 Mg Tab PO 08/29/20 20:59 10 mg HS DELANEY Administration Bisacodyl 5 mg 07/31/20 09:00 07/31/20 09:27 Bisacodyl 5 Mg Tabec PO 08/30/20 08:59 Not Given DAILY DELANEY Diltiazem HCl 240 mg 07/31/20 09:00 07/31/20 11:32 Diltiazem Hcl 240 Mg Capcr PO 08/30/20 08:59 Not Given DAILY DELANEY Fenofibrate 48 mg 07/31/20 09:00 07/31/20 09:28 Fenofibrate Nanocrystallized 48 Mg Tablet PO 08/30/20 08:59 48 mg QAM DELANEY Administration Hydromorphone HCl 0.5 mg 07/30/20 18:31 07/31/20 14:55 Hydromorphone Inj 0.5 Mg/0.5 Ml Syr IV 08/13/20 18:30 0.5 mg Q3H PRN Administration Pain Potassium Chloride/Sodium Chloride 20 meq in 1,000 mls @ 125 mls/hr 07/30/20 20:00 07/31/20 14:55 Normal Saline W/20 Meq Kcl IV 08/29/20 19:59 125 mls/hr .Q8H DELANEY Administration Ondansetron HCl 4 mg 07/30/20 18:31 07/31/20 14:55 Ondansetron Inj 2 Mg/Ml 2 Ml Vial IV 08/29/20 18:30 4 mg Q4H PRN Administration Nausea And Vomiting Pantoprazole Sodium 40 mg 07/30/20 21:00 07/31/20 09:27 Pantoprazole 40 Mg Tab PO 08/29/20 20:59 40 mg BID DELANEY Administration Sucralfate 1 gm 07/30/20 21:00 07/31/20 12:47 Sucralfate 1 Gm Tab PO 08/29/20 20:59 Not Given ACHS DELANEY Past Medical History Medical History Arthritis Bilat Knees & lower back Depression GERD (gastroesophageal reflux disease) Hypercholesterolemia Hypertension Restless leg syndrome Small cell lung cancer (04/21/20) Past Family History Family History Mother , Passed age 64 of pancreatic cancer Hypertension Cancer Father Hearing loss Grandmother (Maternal) , Passed age 79 of Stomach Cancer No problems noted. Uncle , Passed in 80's of Colorectal Cancer No problems noted. Brother No problems noted. Brother No problems noted. Sister No problems noted. Grandfather (Maternal) , Passed age 89 of Bladder Cancer No problems noted. Son No problems noted. Daughter No problems noted. Grandmother Cancer Grandfather Cancer Other No family history of allergies No family history of bleeding disorder Denies family history of Ovarian cancer Heart disease Breast cancer Lung cancer Asthma Past Surgical History Surgical History H/O arthroscopic knee surgery 1998 RIGHT/ 2011 LEFT H/O tubal ligation 1991 H/O: section x2 1987 & 1982 History of bronchoscopy (04/21/20) 04/21/2020 - with positive biopsy History of excision of pilonidal cyst 1988 History of tooth extraction molars Port-A-Cath in place (05/25/20) Insertion of Mediport Left Subclavian with Fluoroscopy Dr. Ramos 05/25/2020 S/P carpal tunnel release 1989's RT / 2015 LEFT S/P tonsillectomy Age 4 Social History Smoking Status: Former smoker tobacco type: cigarettes Hx Alcohol Use: No Alcohol type: wine alcohol intake frequency: holidays/special occasions only Hx Substance Use: No substance use type: does not use Physical Exam Vital Signs Last Vital Signs Temp 36.6 C 07/31/20 15:55 Pulse 66 07/31/20 15:55 Resp 18 07/31/20 15:55 BP 150/70 H 07/31/20 15:55 Pulse Ox 96 07/31/20 15:55 Testing Laboratory Results 07/31/20 14:22 07/31/20 06:12 PT 12.4 Seconds (9.0-12.0) H 07/30/20 16:03 INR 1.2 (0.9-1.1) H 07/30/20 16:03 Urine Color Yellow 07/31/20 09:10 Urine Appearance Clear (Clear) 07/31/20 09:10 Urine pH 5.0 (4.5-7.5) 07/31/20 09:10 Ur Specific [place] 1.015 (1.000-1.030) 07/31/20 09:10 Urine Protein 1+ (Negative) H 07/31/20 09:10 Urine Glucose (UA) 1+ (Negative) H 07/31/20 09:10 Urine Ketones Negative (Negative) 07/31/20 09:10 Urine Nitrite Negative (Negative) 07/31/20 09:10 Ur Leukocyte Esterase Negative (Negative) 07/31/20 09:10 Urine WBC (Auto) 1-5 /hpf (0-5) 07/31/20 09:10 Urine RBC (Auto) 0-4 /hpf (0-4) 07/31/20 09:10 U Hyaline Cast (Auto) 0 /lpf (0-5) 07/31/20 09:10 U Epithel Cells (Auto) >30 /lpf (0-5) H 07/31/20 09:10 Urine Bacteria (Auto) Negative (Negative) 07/31/20 09:10
--- NOTE | 2020-07-31 19:22 | Hospitalist Progress Note ---
Date of Service July 31, 2020 Assessment & Plan (1) Near syncope: - Admit to med tele - ECHO neg for acute issues, EF 50-55%, neg for structural issues - No LOC - BP stable Likely multifactorial in the setting of dehydration with JOSE ANTONIO, hypoK, hypoMg Hb was 11.4 on admission, however has dropped to 7.8 s/p continuous IVF Hemoccult pending No outright s/sx of bleeding, VSS Transfusion threshold of 7 UA neg for UTI (2) Trimalleolar fracture of left ankle: - Evaluated by Dr. Lambert in the ER, reduced, obtaining CT ankle now- with hypokalemia and JOSE ANTONIO Planning for OR 08/01 if workup is stable - Will make NPO after midnight - Pain control ordered - Bowel regimen - Continue PT/OT per ortho service, currently non-weight bearing (3) Leukocytosis: Pt with hx of neulasta as recently as last Friday -Infectious work-up pending to be certain CXR neg for acute, UA neg, blood cultures pending( 1 [facility] and [facility]) Improved w/o abx (4) Hypokalemia: - 2.6 on admission, replace via IV 20 mwq x 2 through mediport, unable to tolerate much PO intake due to esophagitis at this time - Follow a.m. BMP HypoMg, replace and monitor (5) Small cell lung cancer: -Originally diagnosed March 2020, involving left upper lobe mass next to mediastinum, stage IIIa T3, N2, M0. Bilateral solid pulmonary nodules, s/p XRT finished 06/30/2020 and chemotherapy, completed cisplatin and etoposide treatment. -Last chemotherapy cycle 4 on 07/18/2020. -Recently underwent EGD on 07/07 found to have severe radiation esophagitis and esophageal spasms, was discharged on twice daily PPI and Carafate, diltiazem for esophageal spasms and nitro as needed for chest pain at home. -Follows with Dr. Lance as outpatient (6) Esophagitis: - cont BID PPI and Carafate - Magic swizzel prn for pain, swish and swallow as needed - Allow full liquid diet - npo after midnight - Dehydration secondary to poor oral intake, continue NSS at 125 ml/hr x 2L. (7) Hypertension: Continue diltiazem 240 mg daily-for esophageal spasm as above (8) Hypercholesterolemia: -Continue atorvastatin 10 mg (9) Depression: -History noted (10) Restless leg syndrome: - Noted- currently stable (11) GERD (gastroesophageal reflux disease): -Protonix, Carafate (12) DVT prophylaxis: - teds, scds, no chemical ppx in light of anticipated OR within 24 hrs. CODE: FULL Admission and Anticipated Discharge Date Admission Date: July 30, 2020 Subjective Pt with ongoing pain related to her ankle fracture, but feels it is manageable. Has been tolerating PO, but still with decreased intake. Low UOP, but has been urinating. Pt denies fever, SOB, chest pain, abd pain, n/v/c/d, LE swelling. She states she feels fine otherwise. Denies unusual bruising or any bleeding noted. Review of Systems Review of Systems: Pertinent positives and negatives reviewed in HPI--all others negative Physical Exam Constitutional: WD/WN, vitals as above Eyes: normal visual baez by confrontation and + anicteric sclerae Neck: normal visual inspection and trachea midline Respiratory: normal respiratory effort, lungs clear to auscultation Cardiovascular: Rate/Rhythm: regular rate and regular rhythm Gastrointestinal (Abdomen): Inspection/Auscultation: abdomen not distended Percussion/Palpation: abdomen soft; abdomen nontender Musculoskeletal: Head/Neck/Chest: normocephalic and head atraumatic Skin: no rashes, warm and dry Neurologic: awake; not confused Speech / Cognition: normal speech Psychiatric: A+Ox3, euthymic affect Results & Data Results & Data ([facility]) Vital Signs (Past 12 Hours) Vital Signs Temp Pulse Pulse Resp BP Pulse Ox 07/31/20 19:09 36.7 C 65 18 165/69 H 96 07/31/20 15:55 36.6 C 66 18 150/70 H 96 07/31/20 15:52 66 07/31/20 08:00 66 PG Care Time/CCT Total # of Minutes Spent Total Time Spent with Patient: Total time spent is greater than 50% in coordination of care (as documented) at patient's floor/unit and/or counseling patient: Coding Level of Care Code 10750 Subseq Hosp Care Lvl 3 Diagnoses Near syncope R55 Trimalleolar fracture of left ankle S82.852A Encounter type: initial encounter Fracture type: closed Leukocytosis D72.829 Leukocytosis type: unspecified Hypokalemia E87.6 Small cell lung cancer C34.90 Esophagitis K20.90 Hypertension I10 Hypercholesterolemia E78.00 Depression F32.9 Restless leg syndrome G25.81 GERD (gastroesophageal reflux disease) K21.9 DVT prophylaxis Z29.9 (1) Trimalleolar fracture of left ankle Encounter type: initial encounter Fracture type: closed Qualified Code(s): S82.852A - Displaced trimalleolar fracture of left lower leg, initial encounter for closed fracture (2) Leukocytosis Leukocytosis type: unspecified Qualified Code(s): D72.829 - Elevated white blood cell count, unspecified
[2020-07-31] MEDS: ATORVASTATIN 10 MG TAB PO SCH (20:27)
[2020-08-01] MEDS: HYDROmorphone INJ 0.5 MG/0.5 ML SYR IV PRN ×3 (01:21→18:24)
[2020-08-01] MEDS: ONDANSETRON INJ 2 MG/ML 2 ML VIAL IV PRN ×3 (01:21→18:26)
[2020-08-01] MEDS ORDERED: ceFAZolin 2000MG 2,000 MG/15 ML SYR IV SCH (06:00)
[2020-08-01 06:55] LABS: Albumin Level 2.5 gm/dl (3.4-5.0); Calcium 7.9 mg/dl (8.5-10.1); Magnesium 1.8 mg/dl (1.8-2.4); Potassium 3.4 mmol/L (3.5-5.1)
[2020-08-01 07:04] LABS: Hematocrit (blood only) 21.3 % (37-47); Hemoglobin 7.1 g/dL (12.0-16.0); Mean Corpuscular Hemoglobin 30.3 pg (25-34); Mean Corpuscular Hgb Conc 33.3 g/dL (32-36); Mean Platelet Volume 10.8 fL (7.4-10.4); Platelet Count 37 K/uL (130-400); Platelet Estimate Decreased (Normal); RDW Coefficient of Variation 15.4 % (11.5-14.5); RDW Standard Deviation 51.4 fL (36.4-46.3); Red Blood Count 2.34 M/uL (4.2-5.4); White Blood Count 1.66 K/uL (4.8-10.8)
[2020-08-01] MEDS: NSS + 20MEQ KCL 20 MEQ/1,000 ML BAG IV SCH ×2 (07:28→18:26)
[2020-08-01 07:32] LABS: Creatinine Clr Calc Pharmacy 39.2 ml/min; Est GFR (African American) 45.5; Est GFR (Non-African American) 39.3
[2020-08-01 07:35] LABS: Albumin Globulin Ratio 1.1 (0.9-2); Globulin 2.4 gm/dl (2.5-4.0); Total Protein 4.9 gm/dl (6.4-8.2)
[2020-08-01] MEDS: SUCRALFATE 1 GM TAB PO SCH ×4 (08:45→19:54)
--- NOTE | 2020-08-01 09:58 | Consultation Report ---
DATE OF CONSULTATION: 08/01/2020 REASON FOR CONSULTATION: A 60-year-old female well known to us with locally advanced small cell lung cancer. HISTORY OF PRESENT ILLNESS: The patient is a pleasant 60-year-old female who was admitted to [facility] on 07/30/2020 status post fall, suffering severe left ankle dislocation and fracture. Again, the patient is very familiar with [facility], currently under my care for locally advanced small cell lung cancer. She was last seen by our physician color sprayer on the 18 of July when she presented for her fourth cycle of etoposide and cisplatin. The patient has had her struggles during treatment, mainly in regard to myelosuppression and fever. Apparently was at home when she was walking from the living room to her kitchen and went to sit down and apparently her left foot gave out. She actually heard the bones snap and asked her to activate 911. The ankle had to be reduced by Orthopedics in the emergency room. According to Dr. Lambert, the patient will require operative fixation at some point. The patient is in surprisingly good spirits and denies pain at present time. She is currently under the care of the hospitalist service. PAST MEDICAL HISTORY: Significant for osteoarthritis, hypercholesterolemia, restless legs syndrome and limited stage small cell lung cancer, hypertension. PAST SURGICAL HISTORY: Tonsillectomy at age 4, carpal tunnel release bilaterally, Port-A-Cath placement, tooth extraction, pilonidal cyst removal, bronchoscopy, history of section, tubal ligation, arthroscopic knee surgery. MEDICATIONS: Protonix 40 mg p.o. daily, atorvastatin 10 mg p.o. daily, hydrocodone/acetaminophen 15 mL p.o. q. 6 hours p.r.n., Nitrostat 0.4 mg sublingual p.r.n., diltiazem 240 mg p.o. daily, fenofibrate 48 mg p.o. daily, sucralfate 1 gram p.o. q. 6 hours, Compazine 10 mg p.o. q. 6 hours p.r.n., and Zofran 8 mg p.o. q. 8 hours p.r.n. ALLERGIES: LISINOPRIL. FAMILY HISTORY: Mother at age 64, pancreatic cancer. Maternal grandmother of stomach cancer. SOCIAL HISTORY: The patient is and lives with her spouse. They have 2 grown children. She started tobacco at age 20 and quit upon diagnosis equating to a [id number] smoking history. REVIEW OF SYSTEMS: GENERAL: Negative for fevers, chills or sweats. She is not anorexic or losing weight. SKIN: No rashes or lesions. No history of dermatoses. HEENT: Negative for headaches, lightheadedness or dizziness. No visual or hearing deficits. No sinus symptoms, sore throat or dysphagia. LYMPH: No history of lymphoproliferative disease. CARDIAC: No angina or palpitations. PULMONARY: She is not acutely short of breath, dyspneic or orthopneic. No cough or hemoptysis. GASTROINTESTINAL: Negative for abdominal pain, nausea, vomiting, diarrhea or constipation, hematochezia or melena stools. GENITOURINARY: No hematuria, dysuria, urinary incontinence. PSYCHIATRIC: Negative for anxiety, depression or psychoses. ENDOCRINE: Negative for diabetes or thyroid disease. MUSCULOSKELETAL: Status post left ankle fracture dislocation. HEMATOLOGIC: Positive for cytopenias secondary to chemotherapeutic effect. PHYSICAL EXAMINATION: GENERAL: Very pleasant 60-year-old female in no acute distress. VITAL SIGNS: Temperature 36.7, pulse 73, respiratory rate 18, blood pressure 137/78. SKIN: Warm, dry, noncyanotic without petechia, rash or ecchymosis. HEENT: Head is atraumatic, normocephalic. Eyes: PERRLA, EOMI. Sclerae nonicteric. No conjunctival injection. Nares are patent without rhinorrhea or discharge. Throat clear. Tongue midline. Mucous membranes are moist. NECK: Supple without JVD or thyromegaly. LYMPHATICS: No cervical, supraclavicular, axillary or inguinal palpable nodes. HEART: Regular rate and rhythm without clicks, rubs, murmurs or gallops. LUNGS: Clear to auscultation bilaterally. ABDOMEN: Soft, nontender, nondistended. EXTREMITIES: Left lower extremity splinted no pitting edema in the right lower extremity. NEUROLOGICALLY: She is awake, alert and oriented x3. Cranial nerves are intact. LABORATORY DATA: WBC count 1660, hemoglobin 7.1, platelet count 37,000. Sodium 138, potassium 3.4, chloride 105, carbon dioxide 31, creatinine 1.46, BUN 28, albumin 2.5. IMPRESSION: 1. Left ankle fracture dislocation. 2. Limited stage small cell lung cancer. 3. Myelosuppression attributable to chemotherapeutic effect status post cycle 4 etoposide and cisplatin. 4. Acute renal injury. 5. Hypoalbuminemia. PLAN: It was my pleasure to visit with the patient who is well known to [facility], currently under my care for limited stage small cell lung cancer, recently completed chemoradiation with 4 cycles of etoposide and cisplatin. She saw the physician color sprayer to complete therapy on 07/18/2020. She ended up hospitalized a couple of days ago after falling and breaking her ankle. Orthopedics recommends operative fixation. Her platelet count is a little tenuous at this point and depending on the expediency of surgery needed, could perhaps transfuse her single donor plateletpheresis to boost her number to avoid bleeding complications. It may take her some time to recover in the setting of a combined chemoradiation. She last saw the physician color sprayer and appropriately outpatient PET scan was scheduled for tomorrow, which will unfortunately have to be delayed. I also presume the patient will need to go to rehabilitation and perhaps we can schedule her PET scan during that admission. From an oncologic standpoint, I have nothing further to add. She is having no significant side effects other than diminished blood counts. With her upcoming surgery might want to consider giving her a unit or two of blood as well assuming there is going to be some loss of blood intra and perhaps postoperatively. If there are questions or concerns, feel free to contact me at any time. Thank you very much for allowing me to participate in the care of the patient.
--- NOTE | 2020-08-01 11:40 | Progress Notes ---
DATE: 08/01/2020 Lori is seen and evaluated. She is resting comfortably. She has intact sensation. She can wiggle her toes and capillary refill is less than 2 seconds. Unfortunately, her white blood cell count is 1.7. Her hemoglobin is 7, hematocrit 21, platelet count is 37. I spoke with Dr. Olmos and we are in agreement to postpone her surgery until a later date. She is rescheduled for tomorrow. She will be given a diet. Dr. Olmos will discuss with the hospitalist about transfusing platelets and packed red blood cells. We will need to check her labs in the morning prior to surgery.
[2020-08-01] MEDS ORDERED: SODIUM CHLORIDE 0.9% 250 ML IV PRN (11:45)
[2020-08-01] MEDS: dilTIAZem HCL 240 MG CAPCR PO SCH (12:38)
[2020-08-01] MEDS: PANTOprazole 40 MG TAB PO SCH ×2 (12:38→19:54)
[2020-08-01] MEDS: bisacodyL 5 MG TABEC PO SCH (12:41)
[2020-08-01] MEDS: FENOFIBRATE NANOCRYSTALLIZED 48 MG TABLET PO SCH (12:41)
[2020-08-01] MEDS: ATORVASTATIN 10 MG TAB PO SCH (19:54)
--- NOTE | 2020-08-01 22:39 | Hospitalist Progress Note ---
Date of Service August 01, 2020 Assessment & Plan (1) Near syncope: - Admit to med tele - ECHO neg for acute issues, EF 50-55%, neg for structural issues - No LOC - BP stable Likely multifactorial in the setting of dehydration with JOSE ANTONIO, hypoK, hypoMg Hb was 11.4 on admission, however has dropped to 7.8 s/p continuous IVF Hemoccult pending No outright s/sx of bleeding, VSS will transfuse a Hemoglobin is near 7 and patient will require surgery. And will transfuse platelets. UA neg for UTI (2) Trimalleolar fracture of left ankle: - Evaluated by Dr. Lambert in the ER, reduced, obtaining CT ankle now- with hypokalemia and JOSE ANTONIO Planning for OR 08/01 if workup is stable - Will make NPO after midnight - Pain control ordered - Bowel regimen - Continue PT/OT per ortho service, currently non-weight bearing (3) Leukocytosis: Pt with hx of neulasta as recently as last Friday -Infectious work-up pending to be certain CXR neg for acute, UA neg, blood cultures pending( 1 periph and other through m ediport) Improved w/o abx (4) Hypokalemia: - 2.6 on admission, replace via IV 20 mwq x 2 through mediport, unable to tolerate much PO intake due to esophagitis at this time - Follow a.m. BMP HypoMg, replace and monitor (5) Small cell lung cancer: -Originally diagnosed March 2020, involving left upper lobe mass next to mediastinum, stage IIIa T3, N2, M0. Bilateral solid pulmonary nodules, s/p XRT finished 06/30/2020 and chemotherapy, completed cisplatin and etoposide treatment. -Last chemotherapy cycle 4 on 07/18/2020. -Recently underwent EGD on 07/07 found to have severe radiation esophagitis and esophageal spasms, was discharged on twice daily PPI and Carafate, diltiazem for esophageal spasms and nitro as needed for chest pain at home. -Follows with Dr. Lance as outpatient (6) Esophagitis: - cont BID PPI and Carafate - Magic swizzel prn for pain, swish and swallow as needed - Allow full liquid diet - npo after midnight (7) Hypertension: Continue diltiazem 240 mg daily-for esophageal spasm as above (8) Hypercholesterolemia: -Continue atorvastatin 10 mg (9) Depression: -History noted (10) Restless leg syndrome: - Noted- currently stable (11) GERD (gastroesophageal reflux disease): -Protonix, Carafate (12) DVT prophylaxis: - teds, scds, no chemical ppx in light of anticipated OR within 24 hrs. CODE: FULL Admission and Anticipated Discharge Date Admission Date: July 30, 2020 Subjective Patient reports feeling well. She has no new complaints at this time. Review of Systems Review of Systems: All systems reviewed & are unremarkable except as noted in HPI & below Physical Exam Physical Exam: Constitutional: WD/WN, vitals as above Eyes: normal visual baez by confrontation and + anicteric sclerae Neck: normal visual inspection and trachea midline Respiratory: normal respiratory effort, lungs clear to auscultation Cardiovascular: Rate/Rhythm: regular rate and regular rhythm Gastrointestinal (Abdomen): Inspection/Auscultation: abdomen not distended Percussion/Palpation: abdomen soft; abdomen nontender Musculoskeletal: Head/Neck/Chest: normocephalic and head atraumatic Skin: no rashes, warm and dry Neurologic: awake; not confused Speech / Cognition: normal speech Psychiatric: A+Ox3, euthymic affect Results & Data Results & Data ([facility]) Vital Signs (Past 12 Hours) Vital Signs Temp Pulse Pulse Resp BP BP BP 08/01/20 21:52 37 C 77 20 154/76 H 08/01/20 21:37 36.8 C 73 20 145/73 H 08/01/20 21:22 36.9 C 77 18 151/68 H 08/01/20 19:23 37.3 C 70 18 138/69 08/01/20 17:04 36.9 C 71 125/70 08/01/20 16:30 37 C 71 145/70 H 08/01/20 15:30 36.8 C 66 141/69 H 08/01/20 15:00 36.8 C 59 L 16 171/80 H 08/01/20 14:30 36.9 C 69 16 161/74 H 08/01/20 14:15 36.8 C 72 18 149/67 H 08/01/20 13:58 36.8 C 72 16 148/74 H 08/01/20 12:00 36.8 C 75 18 149/74 H Pulse Ox 08/01/20 21:52 93 08/01/20 21:37 91 08/01/20 21:22 92 08/01/20 19:23 95 08/01/20 17:04 95 08/01/20 16:30 95 08/01/20 15:30 96 08/01/20 15:00 96 08/01/20 14:30 97 08/01/20 14:15 97 08/01/20 13:58 08/01/20 12:00 96 PG Care Time/CCT Total # of Minutes Spent Total Time Spent with Patient: Total time spent is greater than 50% in coordination of care (as documented) at patient's floor/unit and/or counseling patient: Coding Level of Care Code 97854 Subseq Hosp Care Lvl 3 Diagnoses Near syncope R55 Trimalleolar fracture of left ankle S82.852A Encounter type: initial encounter Fracture type: closed Leukocytosis D72.829 Leukocytosis type: unspecified Hypokalemia E87.6 Small cell lung cancer C34.90 Esophagitis K20.90 Hypertension I10 Hypercholesterolemia E78.00 Depression F32.9 Restless leg syndrome G25.81 GERD (gastroesophageal reflux disease) K21.9 DVT prophylaxis Z29.9 Time Spent (min) 35 (1) Trimalleolar fracture of left ankle Encounter type: initial encounter Fracture type: closed Qualified Code(s): S82.852A - Displaced trimalleolar fracture of left lower leg, initial encounter for closed fracture (2) Leukocytosis Leukocytosis type: unspecified Qualified Code(s): D72.829 - Elevated white blood cell count, unspecified
[2020-08-02] MEDS: ONDANSETRON INJ 2 MG/ML 2 ML VIAL IV PRN ×5 (00:49→23:55)
[2020-08-02] MEDS: HYDROmorphone INJ 0.5 MG/0.5 ML SYR IV PRN ×5 (00:49→23:55)
[2020-08-02] MEDS: NSS + 20MEQ KCL 20 MEQ/1,000 ML BAG IV SCH ×4 (03:14→20:28)
[2020-08-02 05:19] LABS: Hematocrit (blood only) 21.8 % (37-47); Hemoglobin 7.4 g/dL (12.0-16.0); Mean Corpuscular Hemoglobin 30.5 pg (25-34); Mean Corpuscular Hgb Conc 33.9 g/dL (32-36); Mean Corpuscular Volume 89.7 fL (80-100); Mean Platelet Volume 11.8 fL (7.4-10.4); Platelet Count 44 K/uL (130-400); RDW Coefficient of Variation 14.5 % (11.5-14.5); RDW Standard Deviation 48.2 fL (36.4-46.3); Red Blood Count 2.43 M/uL (4.2-5.4); White Blood Count 0.23 K/uL (4.8-10.8)
[2020-08-02 06:10] LABS: Albumin Level 2.5 gm/dl (3.4-5.0); BUN Creatinine Ratio 16.8 (10-20); Creatinine Clr Calc Pharmacy 43.1 ml/min; Est GFR (African American) 50.9; Magnesium 1.1 mg/dl (1.8-2.4); Potassium 3.4 mmol/L (3.5-5.1)
[2020-08-02 06:13] LABS: Bilirubin,Total 1.5 mg/dl (0.2-1); Globulin 2.4 gm/dl (2.5-4.0); Total Protein 4.9 gm/dl (6.4-8.2)
[2020-08-02] MEDS ORDERED: ROPIVACAINE 0.5% 5 MG/ML 30 ML VIAL ONE (06:20)
[2020-08-02] MEDS ORDERED: ENOXAPARIN INJ 40 MG/0.4 ML SYR SQ ONE (07:45)
[2020-08-02] MEDS: bisacodyL 5 MG TABEC PO SCH (08:13)
[2020-08-02] MEDS: dilTIAZem HCL 240 MG CAPCR PO SCH (08:13)
[2020-08-02] MEDS: SUCRALFATE 1 GM TAB PO SCH ×4 (08:13→20:27)
[2020-08-02] MEDS: PANTOprazole 40 MG TAB PO SCH ×2 (08:13→20:27)
[2020-08-02] MEDS: FENOFIBRATE NANOCRYSTALLIZED 48 MG TABLET PO SCH (08:13)
--- NOTE | 2020-08-02 08:21 | Progress Notes ---
DATE: 08/02/2020 Patient is resting comfortably in bed. Afebrile. Vital signs stable. LABORATORY DATA: White blood cell count is 0.23, hemoglobin 7.4, hematocrit 21.8, platelet count 44,000. Differential is not done as there are not enough white blood cells to count. Discussed with Dr. Olmos. She would likely require another transfusion of packed red blood cells and more platelets. This could be done starting prior to surgery and in conjunction with. However, unfortunately her white blood cell count is extremely low. PLAN: We talked about the risks, and at this point, he has recommended that we hold on surgery, which I completely agree with and he will do measures such as Neulasta to try to increase her white blood cells. We will let her go ahead and eat. We will get her out of bed with PT. Walker. Lovenox for DVT prophylaxis. When white blood cell count returns to a more acceptable level, we can consider surgery. The time frame for this in terms of surgery is hopefully less than 7-10 days. During this timeframe I think a straightforward osteosynthesis could be performed. Getting out much longer than this is going to require more in terms of invasiveness of surgery. I discussed all these issues with the patient and her this morning. She additionally is due to get a PET scan and get more chemo done in the near future, which also complicates the time pressure. I did discuss with the patient that I will be going out of town tomorrow and it is possible that one of my orthopedic colleagues may need to assume her care in my absence.
--- NOTE | 2020-08-02 08:34 | Progress Notes ---
DATE: 08/02/2020 DIAGNOSES: 1. Myelosuppression attributable to chemotherapeutic effect. 2. Left ankle fracture dislocation. 3. Limited stage small cell lung cancer. 4. Acute renal injury. 5. Hypoalbuminemia. SUBJECTIVE: The patient is a pleasant 60-year-old female who was admitted to [facility] on 07/30/2020 status post fall, suffering severe left ankle dislocation and fracture. Dr. Lambert, orthopedist is awaiting opportunity to repair her fracture. Unfortunately, patient is at the fede of myelosuppression brought on by a combination of etoposide and cisplatin. She received Neulasta 6 mg subQ on 07/28/2020. I suspect her WBCs will start to head upward, but nonetheless will add Neupogen for the next couple of days. Her platelet count remains a bit tenuous as well and will plan to give additional platelets in preparation to take her to the OR. Clinically, she feels well. Denies fever or chills. Nursing reports no overnight difficulties. OBJECTIVE: GENERAL: A very pleasant 60-year-old female in no acute distress. VITAL SIGNS: Temperature 37.2, pulse 69, respiratory rate 18, blood pressure 160/74. SKIN: Without rash or lesion. HEENT: Oral mucosa without erythema or ulceration. HEART: Regular rate and rhythm. No clicks, rubs or murmurs. LUNGS: Clear to auscultation bilaterally. ABDOMEN: Soft, nontender, nondistended. EXTREMITIES: No clubbing, cyanosis or edema. Splint on her left lower extremity from the knee down. NEUROLOGIC: Grossly intact. LABORATORY DATA: WBC count 230, hemoglobin 7.4, platelet count 44,000. Sodium 138, potassium 3.4, chloride 103, carbon dioxide 28, creatinine 1.33, BUN 22. IMPRESSION: 1. Pancytopenia attributable to chemotherapeutic effect. 2. Left ankle fracture dislocation. 3. Limited stage small cell lung cancer. 4. Acute renal injury. 5. Hypoalbuminemia. PLAN: I spoke to Dr. Lambert in the esparza before visiting patient this morning. Obviously, she cannot go to the OR today because of neutropenia. She received Neulasta on the 28 of July and generally speaking, once the patient hit the fede, the white count usually spontaneously returns towards normal. Because of the experience be necessary to get her to surgery, we will add Neupogen 480 mcg today and tomorrow. Additionally, I will ask the hospitalist service to give her an additional unit of packed RBCs and single donor platelet pheresis in that order as I do not want her platelets diluted out by giving platelets, followed by blood. The patient was recently started on subQ Lovenox, which I subscribe despite her low platelet count. Discussed the risks of surgery moving forward with patient and her . Unfortunately, there will always be risk no matter the circumstance, but we will try to correct her blood counts as best as possible moving forward. We will continue to follow her closely. MELISSA
[2020-08-02] MEDS ORDERED: SODIUM CHLORIDE 0.9% 250 ML IV PRN (09:49)
[2020-08-02] MEDS: FILGRASTIM 480 MCG/1.6 ML VIAL SQ SCH (11:16)
[2020-08-02] MEDS: MAGNESIUM SULFATE / D5W 1 GM/100 ML BAG IV SCH ×2 (17:18→19:14)
[2020-08-02] MEDS: MAGNESIUM OXIDE 400 MG TAB PO SCH (20:26)
[2020-08-02] MEDS: ATORVASTATIN 10 MG TAB PO SCH (20:27)
--- NOTE | 2020-08-02 22:52 | Hospitalist Progress Note ---
Date of Service August 02, 2020 Assessment & Plan (1) Near syncope: - Admit to med tele - ECHO neg for acute issues, EF 50-55%, neg for structural issues - No LOC - BP stable Likely multifactorial in the setting of dehydration with JOSE ANTONIO, hypoK, hypoMg Hb was 11.4 on admission, however has dropped to 7.8 s/p continuous IVF Hemoccult pending No outright s/sx of bleeding, VSS will transfuse again for a second day in a row: Hemoglobin is near 7 and patient will require surgery. And will transfuse platelets again for a second day in a row.. UA neg for UTI D/W Dr. Lance (2) Trimalleolar fracture of left ankle: - Evaluated by Dr. Lambert in the ER, reduced, obtaining CT ankle now- with hypokalemia and JOSE ANTONIO Planning for OR 08/01 if workup is stable - Will make NPO after midnight - Pain control ordered - Bowel regimen - Continue PT/OT per ortho service, currently non-weight bearing (3) Leukocytosis: Pt with hx of neulasta as recently as last Friday -Infectious work-up pending to be certain CXR neg for acute, UA neg, blood cultures pending( 1 periph and other through mediport) Improved w/o abx (4) Hypokalemia: - 2.6 on admission, replace via IV 20 mwq x 2 through mediport, unable to tolerate much PO intake due to esophagitis at this time - Follow a.m. BMP HypoMg, replace and monitor (5) Small cell lung cancer: -Originally diagnosed March 2020, involving left upper lobe mass next to mediastinum, stage IIIa T3, N2, M0. Bilateral solid pulmonary nodules, s/p XRT finished 06/30/2020 and chemotherapy, completed cisplatin and etoposide treatment. -Last chemotherapy cycle 4 on 07/18/2020. -Recently underwent EGD on 07/07 found to have severe radiation esophagitis and esophageal spasms, was discharged on twice daily PPI and Carafate, diltiazem for esophageal spasms and nitro as needed for chest pain at home. -Follows with Dr. Lance as outpatient (6) Esophagitis: - cont BID PPI and Carafate - Magic swizzel prn for pain, swish and swallow as needed - Allow full liquid diet - npo after midnight (7) Hypertension: Continue diltiazem 240 mg daily-for esophageal spasm as above (8) Hypercholesterolemia: -Continue atorvastatin 10 mg (9) Depression: -History noted (10) Restless leg syndrome: - Noted- currently stable (11) GERD (gastroesophageal reflux disease): -Protonix, Carafate (12) DVT prophylaxis: - teds, scds, no chemical ppx in light of anticipated OR within 24 hrs. CODE: FULL Admission and Anticipated Discharge Date Admission Date: July 30, 2020 Subjective 60 yo female reports feeling well, she has no new complaints. Review of Systems Review of Systems: All systems reviewed & are unremarkable except as noted in HPI & below Physical Exam Physical Exam: Constitutional: WD/WN, vitals as above Eyes: normal visual baez by confrontation and + anicteric sclerae Neck: normal visual inspection and trachea midline Respiratory: normal respiratory effort, lungs clear to auscultation Cardiovascular: Rate/Rhythm: regular rate and regular rhythm Gastrointestinal (Abdomen): Inspection/Auscultation: abdomen not distended Percussion/Palpation: abdomen soft; abdomen nontender Musculoskeletal: Head/Neck/Chest: normocephalic and head atraumatic Skin: no rashes, warm and dry Neurologic: awake; not confused Speech / Cognition: normal speech Psychiatric: A+Ox3, euthymic affect Results & Data Results & Data ([facility]) Vital Signs (Past 12 Hours) Vital Signs Temp Pulse Pulse Resp BP BP BP 08/02/20 19:31 36.9 C 69 18 134/69 08/02/20 16:27 37.0 C 81 18 115/63 08/02/20 15:45 37.0 C 75 20 121/69 08/02/20 15:23 69 08/02/20 15:15 37.3 C 77 19 127/67 08/02/20 14:39 36.9 C 72 20 129/56 L 08/02/20 14:24 36.8 C 69 20 136/64 08/02/20 14:07 37.6 C H 80 20 144/64 H 08/02/20 12:44 37.5 C 80 18 147/68 H 08/02/20 11:45 37 C 69 18 132/74 08/02/20 11:44 37.3 C 70 16 130/70 08/02/20 11:14 37.3 C 69 16 129/75 08/02/20 10:59 37.2 C 69 18 137/63 Pulse Ox 08/02/20 19:31 94 08/02/20 16:27 94 08/02/20 15:45 91 08/02/20 15:23 08/02/20 15:15 93 08/02/20 14:39 93 08/02/20 14:24 93 08/02/20 14:07 08/02/20 12:44 08/02/20 11:45 94 08/02/20 11:44 08/02/20 11:14 94 08/02/20 10:59 PG Care Time/CCT Total # of Minutes Spent Total Time Spent with Patient: Total time spent is greater than 50% in coordination of care (as documented) at patient's floor/unit and/or counseling patient: Coding Level of Care Code 14796 Subseq Hosp Care Lvl 3 Diagnoses Near syncope R55 Trimalleolar fracture of left ankle S82.852A Encounter type: initial encounter Fracture type: closed Leukocytosis D72.829 Leukocytosis type: unspecified Hypokalemia E87.6 Small cell lung cancer C34.90 Esophagitis K20.90 Hypertension I10 Hypercholesterolemia E78.00 Depression F32.9 Restless leg syndrome G25.81 GERD (gastroesophageal reflux disease) K21.9 DVT prophylaxis Z29.9 Time Spent (min) 35 (1) Trimalleolar fracture of left ankle Encounter type: initial encounter Fracture type: closed Qualified Code(s): S82.852A - Displaced trimalleolar fracture of left lower leg, initial encounter for closed fracture (2) Leukocytosis Leukocytosis type: unspecified Qualified Code(s): D72.829 - Elevated white blood cell count, unspecified
[2020-08-03] MEDS: NSS + 20MEQ KCL 20 MEQ/1,000 ML BAG IV SCH ×3 (03:59→20:31)
[2020-08-03] MEDS: HYDROmorphone INJ 0.5 MG/0.5 ML SYR IV PRN ×4 (04:00→19:18)
[2020-08-03] MEDS: ONDANSETRON INJ 2 MG/ML 2 ML VIAL IV PRN ×4 (04:00→19:19)
[2020-08-03 05:16] LABS: Hematocrit (blood only) 22.9 % (37-47); Hemoglobin 8.1 g/dL (12.0-16.0); Mean Corpuscular Hemoglobin 30.6 pg (25-34); Mean Corpuscular Hgb Conc 35.4 g/dL (32-36); Mean Corpuscular Volume 86.4 fL (80-100); Mean Platelet Volume 10.3 fL (7.4-10.4); Platelet Count 32 K/uL (130-400); RDW Coefficient of Variation 14.4 % (11.5-14.5); RDW Standard Deviation 45.8 fL (36.4-46.3); Red Blood Count 2.65 M/uL (4.2-5.4)
[2020-08-03] MEDS: MAGNESIUM OXIDE 400 MG TAB PO SCH ×2 (08:09→20:29)
[2020-08-03] MEDS: FENOFIBRATE NANOCRYSTALLIZED 48 MG TABLET PO SCH (08:10)
[2020-08-03] MEDS: dilTIAZem HCL 240 MG CAPCR PO SCH (08:10)
[2020-08-03] MEDS: PANTOprazole 40 MG TAB PO SCH ×2 (08:10→20:29)
[2020-08-03] MEDS: SUCRALFATE 1 GM TAB PO SCH ×4 (08:10→20:28)
[2020-08-03] MEDS: bisacodyL 5 MG TABEC PO SCH (08:25)
--- NOTE | 2020-08-03 08:25 | Progress Notes ---
DATE: 08/03/2020 ONCOLOGY PROGRESS NOTE DIAGNOSES: 1. Myelosuppression attributable to chemotherapeutic effect. 2. Left ankle fracture dislocation. 3. Limited stage small cell lung cancer. 4. Acute renal injury. 5. Hypoalbuminemia. SUBJECTIVE: Lori was seen and examined at bedside. She reports no fever or increased pain overnight. Despite yesterday's subcutaneous dose of Neupogen, she still remains profoundly neutropenic and thrombocytopenic. She also received single donor platelet pheresis and 1 unit of packed RBCs. Nursing reports no overnight difficulties otherwise. PHYSICAL EXAMINATION: VITAL SIGNS: Temperature 37, pulse 76, respiratory rate 18, blood pressure 135/64. SKIN: Without rash or lesion. HEENT: Oral mucosa without erythema or ulceration. HEART: Regular rate and rhythm. LUNGS: Clear to auscultation bilaterally. ABDOMEN: Soft, nontender, nondistended. EXTREMITIES: No peripheral edema in the right lower extremity. NEUROLOGIC: She is grossly intact. LABORATORY DATA: WBC count 200, hemoglobin 8.1, platelet count 32,000. IMPRESSION: 1. Pancytopenia attributable to chemotherapeutic effect. 2. Left ankle fracture dislocation. 3. Limited stage small cell lung cancer. 4. Acute renal injury. 5. Hypoalbuminemia. PLAN: Lori was seen and examined at bedside this morning. Clinically, doing reasonably well; however, she cannot yet to go to the operating room to fix her badly injured ankle. She received 480 mcg of subcutaneous Neupogen yesterday. White cells are still quite low. She also received 1 unit of packed RBCs and single donor platelet pheresis resulting in no significant increase in either index. I suspect we will just have to wait for her to spontaneously recover, which I anticipate in the next day or two. She will receive an additional dose of Neupogen today. We will continue to follow her peripheral counts on a daily basis. Encouraged continued prophylactic Lovenox. We will continue to follow her regularly.
[2020-08-03] MEDS: FILGRASTIM 480 MCG/1.6 ML VIAL SQ SCH (08:28)
[2020-08-03] MEDS ORDERED: ENOXAPARIN INJ 40 MG/0.4 ML SYR SQ ONE (09:30)
--- NOTE | 2020-08-03 14:05 | Progress Notes ---
DATE: 08/03/2020 Lori is resting comfortably in bed. I unfortunately had to cancel her surgery today. She remains afebrile. Her vital signs are stable. Unfortunately, her white blood cell count is 0.2. Hemoglobin 8, hematocrit 23, platelet count 32,000. Her leg is inspected. There is minimal swelling. No blistering. Dorsalis pedis pulse is 1+. I discussed with her that things will be day to day. Once her counts recover to an acceptable level, surgery could be considered. She is given a diet today. She will be made n.p.o. after midnight. I gave her 1 dose of Lovenox this morning. If her counts are improved tomorrow, then one of my colleagues will be able to help her. At this point moving forward, one of my colleagues, either Dr. Roque, Dr. Abdi or Dr. Mendez will be assuming her care depending on who is available. If she is not able to have surgery tomorrow, then we will again continue her Lovenox and wait until her counts are improved. N.p.o. after midnight. The situation was discussed with the patient. Her surgery is relatively straightforward. The risks of infection, blood clotting, wound and bone healing are concerning issues.
[2020-08-03] MEDS: PROCHLORPERAZINE MALEATE 10 MG TAB PO PRN (16:11)
[2020-08-03] MEDS: ATORVASTATIN 10 MG TAB PO SCH (20:29)
--- NOTE | 2020-08-03 23:22 | Hospitalist Progress Note ---
Date of Service August 03, 2020 Assessment & Plan (1) Near syncope: - Admit to med tele - ECHO neg for acute issues, EF 50-55%, neg for structural issues - No LOC - BP stable Likely multifactorial in the setting of dehydration with JOSE ANTONIO, hypoK, hypoMg Hb was 11.4 on admission, However patient remains pancytopenc. Received 2 units of PRBC and 2 units of platelets apheresis. No outright s/sx of bleeding, VSS will recheck labs in AM. -Surgery is held. UA neg for UTI D/W Dr. Lance (2) Trimalleolar fracture of left ankle: - Evaluated by Dr. Lambert in the ER, reduced, obtaining CT ankle now- with hypokalemia and JOSE ANTONIO Planning for OR 08/01 if workup is stable - Will make NPO after midnight - Pain control ordered - Bowel regimen - Continue PT/OT per ortho service, currently non-weight bearing (3) Leukocytosis: Patient currently leukopenic now. Pt with hx of neulasta as recently as last Friday -Infectious work-up CXR neg for acute, UA neg, blood cultures pending( 1 perip and other through [email or web address]) Improved w/o abx (4) Hypokalemia: - 2.6 on admission, replace via IV 20 mwq x 2 through mediport, unable to tolerate much PO intake due to esophagitis at this time - Follow a.m. BMP HypoMg, replace and monitor (5) Small cell lung cancer: -Originally diagnosed March 2020, involving left upper lobe mass next to mediastinum, stage IIIa T3, N2, M0. Bilateral solid pulmonary nodules, s/p XRT finished 06/30/2020 and chemotherapy, completed cisplatin and etoposide treatment. -Last chemotherapy cycle 4 on 07/18/2020. -Recently underwent EGD on 07/07 found to have severe radiation esophagitis and esophageal spasms, was discharged on twice daily PPI and Carafate, diltiazem for esophageal spasms and nitro as needed for chest pain at home. -Follows with Dr. Lance as outpatient (6) Esophagitis: - cont BID PPI and Carafate - Magic swizzel prn for pain, swish and swallow as needed - Allow full liquid diet - npo after midnight (7) Hypertension: Continue diltiazem 240 mg daily-for esophageal spasm as above (8) Hypercholesterolemia: -Continue atorvastatin 10 mg (9) Depression: -History noted (10) Restless leg syndrome: - Noted- currently stable (11) GERD (gastroesophageal reflux disease): -Protonix, Carafate (12) DVT prophylaxis: - teds, scds, no chemical ppx in light of anticipated OR within 24 hrs. CODE: FULL Admission and Anticipated Discharge Date Admission Date: July 30, 2020 Subjective 60 yo female reports no new symptoms. Review of Systems Review of Systems: All systems reviewed & are unremarkable except as noted in HPI & below Physical Exam Physical Exam: Constitutional: WD/WN, vitals as above Eyes: normal visual baez by confrontation and + anicteric sclerae Neck: normal visual inspection and trachea midline Respiratory: normal respiratory effort, lungs clear to auscultation Cardiovascular: Rate/Rhythm: regular rate and regular rhythm Gastrointestinal (Abdomen): Inspection/Auscultation: abdomen not distended Percussion/Palpation: abdomen soft; abdomen nontender Musculoskeletal: Head/Neck/Chest: normocephalic and head atraumatic Skin: no rashes, warm and dry Neurologic: awake; not confused Speech / Cognition: normal speech Psychiatric: A+Ox3, euthymic affect Results & Data Results & Data ([facility]) Vital Signs (Past 12 Hours) Vital Signs Temp Pulse Pulse Resp BP BP Pulse Ox 08/03/20 22:00 37.4 C 77 20 145/68 H 95 08/03/20 19:00 37.4 C 73 20 147/55 H 94 08/03/20 16:00 77 08/03/20 15:38 36.7 C 87 17 118/60 94 08/03/20 12:07 37 C 75 18 147/73 H 94 PG Care Time/CCT Total # of Minutes Spent Total Time Spent with Patient: Total time spent is greater than 50% in coordination of care (as documented) at patient's floor/unit and/or counseling patient: Coding Level of Care Code 07075 Subseq Hosp Care Lvl 2 Diagnoses Near syncope R55 Trimalleolar fracture of left ankle S82.852A Encounter type: initial encounter Fracture type: closed Leukocytosis D72.829 Leukocytosis type: unspecified Hypokalemia E87.6 Small cell lung cancer C34.90 Esophagitis K20.90 Hypertension I10 Hypercholesterolemia E78.00 Depression F32.9 Restless leg syndrome G25.81 GERD (gastroesophageal reflux disease) K21.9 DVT prophylaxis Z29.9 Time Spent (min) 25 (1) Trimalleolar fracture of left ankle Encounter type: initial encounter Fracture type: closed Qualified Code(s): S82.852A - Displaced trimalleolar fracture of left lower leg, initial encounter for closed fracture (2) Leukocytosis Leukocytosis type: unspecified Qualified Code(s): D72.829 - Elevated white blood cell count, unspecified
[2020-08-04] MEDS: ONDANSETRON INJ 2 MG/ML 2 ML VIAL IV PRN ×5 (00:08→21:33)
[2020-08-04] MEDS: HYDROmorphone INJ 0.5 MG/0.5 ML SYR IV PRN ×5 (00:08→21:33)
[2020-08-04] MEDS: NSS + 20MEQ KCL 20 MEQ/1,000 ML BAG IV SCH ×3 (05:27→23:41)
[2020-08-04] MEDS ORDERED: ceFAZolin 2000MG 2,000 MG/15 ML SYR IV SCH (06:00)
[2020-08-04] MEDS ORDERED: DEXAMETHASONE SOD INJ 4 MG/ML VIAL ONE (06:22)
[2020-08-04] MEDS ORDERED: BUPIVACAINE 0.25% 30 ML VIAL ONE (06:22)
[2020-08-04] MEDS ORDERED: EPINEPHrine INJ 1 MG/ML AMP ONE (06:23)
--- NOTE | 2020-08-04 07:04 | Orthopedic Progress Note ---
Date of Service August 04, 2020 Assessment & Plan (1) Trimalleolar fracture of left ankle: HD # 6, Left Trimalleolar ankle fracture. Awaiting lab results and medical clearance from Hospitalist and oncology service to move forward with ORIF. Currently on the OR schedule for later today if medically able. Patient has been consented. Continue NPO. NWB LLE. Continue care per primary service. Spoke with Dr. Olmos, patient is not medically stable. Will Cancel surgery today. May resume diet. Restart Lovenox. Will attempt to optimize over the weekend. NPO after midnight Friday for possible OR Friday after 10 am, again if medically stable. Present on Admission?: Yes Admission and Anticipated Discharge Date Admission Date: July 30, 2020 Subjective Comfortable Review of Systems Review of Systems: All systems reviewed & are unremarkable except as noted in HPI & below Physical Exam Physical Exam: LLE: Splint is in good condition. Wiggling toes. BCR < 2sec. Sensation to Light touch intact. Results & Data ([facility]) Vital Signs (Past 12 Hours) Vital Signs Temp Pulse Pulse Resp BP Pulse Ox 08/04/20 03:41 72 08/04/20 02:52 37.0 C 70 20 128/64 90 08/03/20 22:00 37.4 C 77 20 145/68 H 95 08/03/20 19:00 37.4 C 73 20 147/55 H 94 Laboratory Results 08/04/20 08/04/20 08/03/20 Range/Units 07:47 07:47 04:51 WBC 0.29 L* 0.20 L* (4.8-10.8) K/uL RBC 2.71 L 2.65 L (4.2-5.4) M/uL Hgb 8.4 L 8.1 L (12.0-16.0) g/dL Hct 23.7 L 22.9 L (37-47) % MCV 87.5 86.4 (80-100) fL MCH 31.0 30.6 (25-34) pg MCHC 35.4 35.4 (32-36) g/dL RDW Std Deviation 45.7 45.8 (36.4-46.3) fL RDW Coeff of Sebastián 14.1 14.4 (11.5-14.5) % Plt Count 12 L* D 32 L (130-400) K/uL MPV 10.3 (7.4-10.4) fL Immature Gran % (Auto) Cancelled Neut % (Auto) Cancelled Lymph % (Auto) Cancelled [place] % (Auto) Cancelled Eos % (Auto) Cancelled Baso % (Auto) Cancelled Neut # (Auto) Cancelled Lymph # (Auto) Cancelled [place] # (Auto) Cancelled Eos # (Auto) Cancelled Baso # (Auto) Cancelled Immature Gran # (Auto) Cancelled Neutrophils % (Manual) Cancelled Band Neutrophils % Cancelled Lymphocytes % (Manual) Cancelled Prolymphocyte % Cancelled Reactive Lymphs % (Man) Cancelled Monocytes % (Manual) Cancelled Eosinophils % (Manual) Cancelled Basophils % (Manual) Cancelled Metamyelocytes % (Man) Cancelled Myelocytes % (Man) Cancelled Promyelocytes % (Man) Cancelled Blast Cells % (Manual) Cancelled Plasma Cell % (Manual) Cancelled Other Cells % Cancelled Nucleated RBC % Cancelled Neutrophils # (Manual) Cancelled Band Neutrophils # Cancelled Total Absolute Neuts Cancelled Lymphocytes # (Manual) Cancelled Prolymphocyte # Cancelled Reactive Lymphs # Cancelled Total Abs Lymphocytes Cancelled Monocytes # (Manual) Cancelled Eosinophils # (Manual) Cancelled Basophils # (Manual) Cancelled Metamyelocytes # (Man) Cancelled Myelocytes # (Manual) Cancelled Promyelocytes # (Man) Cancelled Blast Cells # (Man) Cancelled Plasma Cell # (Manual) Cancelled Other Cells # Cancelled Nucleated RBCs # (Man) Cancelled Hypersegmented Neuts Cancelled Hyposegmented Neuts Cancelled Hypogranular Neuts Cancelled Large Granular Lymphs Cancelled # Lrg Granular Lymphs Cancelled Hairy Cells Cancelled Smudge Cells Cancelled Toxic Granulation Cancelled Toxic Vacuolation Cancelled Dohle Bodies Cancelled Douglas Rods Cancelled Platelet Estimate SIGNIFIC DECREASED (Normal) Hypogranular Platelets Cancelled Clumped Platelets Cancelled Giant Platelets Cancelled Platelet Satelliting Cancelled RBC Morphology Cancelled Polychromasia Cancelled Hypochromasia Cancelled Poikilocytosis Cancelled Basophilic Stippling Cancelled Anisocytosis Cancelled Microcytosis Cancelled Macrocytosis Cancelled Spherocytes Cancelled Pappenheimer Bodies Cancelled Sickle Cells Cancelled Target Cells Cancelled Tear Drop Cells Cancelled Ovalocytes Cancelled Stomatocytes Cancelled Garber-[place] Bodies Cancelled Echinocytes Cancelled Acanthocytes (Spur) Cancelled Rouleaux Cancelled RBC Agglutinates Cancelled Schistocytes Cancelled RBC Morph Comment Cancelled Sezary Cell Cancelled Sodium 137 (136-145) mmol/L Potassium 3.5 (3.5-5.1) mmol/L Chloride 103 (98-107) mmol/L Carbon Dioxide 23 (21-32) mmol/L Anion Gap 11.0 (3-11) BUN 15 (7-18) mg/dl Creatinine 1.05 (0.6-1.2) mg/dl Est Cr Clr Drug Dosing 55.2 ml/min Est GFR ( Amer) 67.8 Est GFR (Non-Af Amer) 58.5 BUN/Creatinine Ratio 14.2 (10-20) Glucose 69 L (70-99) mg/dl Calcium 8.4 L (8.5-10.1) mg/dl 08/02/20 Range/Units 04:24 WBC 0.23 L* (4.8-10.8) K/uL RBC 2.43 L (4.2-5.4) M/uL Hgb 7.4 L (12.0-16.0) g/dL Hct 21.8 L (37-47) % MCV 89.7 (80-100) fL MCH 30.5 (25-34) pg MCHC 33.9 (32-36) g/dL RDW Std Deviation 48.2 H (36.4-46.3) fL RDW Coeff of Sebastián 14.5 (11.5-14.5) % Plt Count 44 L (130-400) K/uL MPV 11.8 H (7.4-10.4) fL Immature Gran % (Auto) Cancelled Neut % (Auto) Cancelled Lymph % (Auto) Cancelled [place] % (Auto) Cancelled Eos % (Auto) Cancelled Baso % (Auto) Cancelled Neut # (Auto) Cancelled Lymph # (Auto) Cancelled [place] # (Auto) Cancelled Eos # (Auto) Cancelled Baso # (Auto) Cancelled Immature Gran # (Auto) Cancelled Neutrophils % (Manual) Cancelled Band Neutrophils % Cancelled Lymphocytes % (Manual) Cancelled Prolymphocyte % Cancelled Reactive Lymphs % (Man) Cancelled Monocytes % (Manual) Cancelled Eosinophils % (Manual) Cancelled Basophils % (Manual) Cancelled Metamyelocytes % (Man) Cancelled Myelocytes % (Man) Cancelled Promyelocytes % (Man) Cancelled Blast Cells % (Manual) Cancelled Plasma Cell % (Manual) Cancelled Other Cells % Cancelled Nucleated RBC % Cancelled Neutrophils # (Manual) Cancelled Band Neutrophils # Cancelled Total Absolute Neuts Cancelled Lymphocytes # (Manual) Cancelled Prolymphocyte # Cancelled Reactive Lymphs # Cancelled Total Abs Lymphocytes Cancelled Monocytes # (Manual) Cancelled Eosinophils # (Manual) Cancelled Basophils # (Manual) Cancelled Metamyelocytes # (Man) Cancelled Myelocytes # (Manual) Cancelled Promyelocytes # (Man) Cancelled Blast Cells # (Man) Cancelled Plasma Cell # (Manual) Cancelled Other Cells # Cancelled Nucleated RBCs # (Man) Cancelled Hypersegmented Neuts Cancelled Hyposegmented Neuts Cancelled Hypogranular Neuts Cancelled Large Granular Lymphs Cancelled # Lrg Granular Lymphs Cancelled Hairy Cells Cancelled Smudge Cells Cancelled Toxic Granulation Cancelled Toxic Vacuolation Cancelled Dohle Bodies Cancelled Douglas Rods Cancelled Platelet Estimate (Normal) Hypogranular Platelets Cancelled Clumped Platelets Cancelled Giant Platelets Cancelled Platelet Satelliting Cancelled RBC Morphology Cancelled Polychromasia Cancelled Hypochromasia Cancelled Poikilocytosis Cancelled Basophilic Stippling Cancelled Anisocytosis Cancelled Microcytosis Cancelled Macrocytosis Cancelled Spherocytes Cancelled Pappenheimer Bodies Cancelled Sickle Cells Cancelled Target Cells Cancelled Tear Drop Cells Cancelled Ovalocytes Cancelled Stomatocytes Cancelled Garber-[place] Bodies Cancelled Echinocytes Cancelled Acanthocytes (Spur) Cancelled Rouleaux Cancelled RBC Agglutinates Cancelled Schistocytes Cancelled RBC Morph Comment Cancelled Sezary Cell Cancelled Sodium (136-145) mmol/L Potassium (3.5-5.1) mmol/L Chloride (98-107) mmol/L Carbon Dioxide (21-32) mmol/L Anion Gap (3-11) BUN (7-18) mg/dl Creatinine (0.6-1.2) mg/dl Est Cr Clr Drug Dosing ml/min Est GFR ( Amer) Est GFR (Non-Af Amer) BUN/Creatinine Ratio (10-20) Glucose (70-99) mg/dl Calcium (8.5-10.1) mg/dl (1) Trimalleolar fracture of left ankle Encounter type: initial encounter Fracture type: closed Qualified Code(s): S82.852A - Displaced trimalleolar fracture of left lower leg, initial encounter for closed fracture
[2020-08-04] MEDS: PROCHLORPERAZINE MALEATE 10 MG TAB PO PRN ×2 (07:25→16:30)
[2020-08-04] MEDS: bisacodyL 5 MG TABEC PO SCH (07:25)
[2020-08-04] MEDS: dilTIAZem HCL 240 MG CAPCR PO SCH (07:25)
[2020-08-04] MEDS: PANTOprazole 40 MG TAB PO SCH ×2 (07:25→20:48)
[2020-08-04] MEDS: FENOFIBRATE NANOCRYSTALLIZED 48 MG TABLET PO SCH (07:25)
[2020-08-04] MEDS: SUCRALFATE 1 GM TAB PO SCH ×4 (07:25→20:48)
[2020-08-04] MEDS: MAGNESIUM OXIDE 400 MG TAB PO SCH ×2 (07:53→20:48)
[2020-08-04 08:15] LABS: BUN Creatinine Ratio 14.2 (10-20); Calcium 8.4 mg/dl (8.5-10.1); Creatinine Clr Calc Pharmacy 55.2 ml/min; Est GFR (African American) 67.8; Est GFR (Non-African American) 58.5; Potassium 3.5 mmol/L (3.5-5.1)
[2020-08-04 08:30] LABS: Hematocrit (blood only) 23.7 % (37-47); Hemoglobin 8.4 g/dL (12.0-16.0); Mean Corpuscular Hgb Conc 35.4 g/dL (32-36); Mean Corpuscular Volume 87.5 fL (80-100); Platelet Count 12 K/uL (130-400); RDW Coefficient of Variation 14.1 % (11.5-14.5); RDW Standard Deviation 45.7 fL (36.4-46.3); Red Blood Count 2.71 M/uL (4.2-5.4); White Blood Count 0.29 K/uL (4.8-10.8)
[2020-08-04 08:31] LABS: Platelet Estimate SIGNIFIC DECREASED (Normal)
[2020-08-04] MEDS: FILGRASTIM 480 MCG/1.6 ML VIAL SQ SCH (12:26)
[2020-08-04] MEDS: ATORVASTATIN 10 MG TAB PO SCH (20:48)
--- NOTE | 2020-08-04 22:19 | Hospitalist Progress Note ---
Date of Service August 04, 2020 Assessment & Plan (1) Pancytopenia: Patient has required 3 units of platelets aphersis, third unit on 08/04. Patient has required 2 units of PRBC, currently it is stable. Patient also receiving neupogen today and tomorw to help improve leukopenia. Surgery has been postponed until Friday, hopefully numbers a re better. (2) Near syncope: - Admit to med tele - ECHO neg for acute issues, EF 50-55%, neg for structural issues - No LOC - BP stable Likely multifactorial in the setting of dehydration with JOSE ANTONIO, hypoK, hypoMg Hb was 11.4 on admission, However patient remains pancytopenc. Received 2 units of PRBC and 3 units of platelets apheresis. No outright s/sx of bleeding, VSS will recheck labs in AM. -Surgery is held. UA neg for UTI D/W Dr. Lance (3) Trimalleolar fracture of left ankle: - Evaluated by Dr. Lambert in the ER, reduced, obtaining CT ankle now- with hypokalemia and JOSE ANTONIO Planning for OR 08/01 if workup is stable - Will make NPO after midnight on Friday. - Pain control ordered - Bowel regimen - Continue PT/OT per ortho service, currently non-weight bearing (4) Leukocytosis: Patient currently leukopenic now. Pt with hx of neulasta as recently as last Friday -Infectious work-up CXR neg for acute, UA neg, blood cultures pending( 1 periph and other through mediport) resolved w/o abx (5) Hypokalemia: - 2.6 on admission, replenished. (6) Small cell lung cancer: -Originally diagnosed March 2020, involving left upper lobe mass next to mediastinum, stage IIIa T3, N2, M0. Bilateral solid pulmonary nodules, s/p XRT finished 06/30/2020 and chemotherapy, completed cisplatin and etoposide treatment. -Last chemotherapy cycle 4 on 07/18/2020. -Recently underwent EGD on 07/07 found to have severe radiation esophagitis and esophageal spasms, was discharged on twice daily PPI and Carafate, diltiazem for esophageal spasms and nitro as needed for chest pain at home. -Follows with Dr. Lance as outpatient (7) Esophagitis: - cont BID PPI and Carafate - Magic swizzel prn for pain, swish and swallow as needed - Allow full liquid diet - npo after midnight (8) Hypertension: Continue diltiazem 240 mg daily-for esophageal spasm as above (9) Hypercholesterolemia: -Continue atorvastatin 10 mg (10) Depression: -History noted (11) Restless leg syndrome: - Noted- currently stable (12) GERD (gastroesophageal reflux disease): -Protonix, Carafate (13) DVT prophylaxis: - teds, scds, no chemical ppx in light of thrombocytopenia CODE: FULL Admission and Anticipated Discharge Date Admission Date: July 30, 2020 Subjective Patient reports no new symptoms today. Review of Systems Review of Systems: All systems reviewed & are unremarkable except as noted in HPI & below Physical Exam Physical Exam: Constitutional: WD/WN, vitals as above Eyes: normal visual baez by confrontation and + anicteric sclerae Neck: normal visual inspection and trachea midline Respiratory: normal respiratory effort, lungs clear to auscultation Cardiovascular: Rate/Rhythm: regular rate and regular rhythm Gastrointestinal (Abdomen): Inspection/Auscultation: abdomen not distended Percussion/Palpation: abdomen soft; abdomen nontender Musculoskeletal: Head/Neck/Chest: normocephalic and head atraumatic Skin: no rashes, warm and dry Neurologic: awake; not confused Speech / Cognition: normal speech Psychiatric: A+Ox3, euthymic affect Results & Data Results & Data ([facility]) Vital Signs (Past 12 Hours) Vital Signs Temp Pulse Pulse Resp BP BP BP 08/04/20 19:00 37.3 C 82 18 116/63 08/04/20 16:00 75 08/04/20 14:40 37.0 C 76 20 139/67 08/04/20 12:20 37.0 C 78 18 133/65 08/04/20 12:17 36.7 C 76 18 139/64 08/04/20 12:10 36.7 C 79 16 133/62 08/04/20 12:03 36.9 C 80 18 142/66 H Pulse Ox 08/04/20 19:00 91 08/04/20 16:00 08/04/20 14:40 90 08/04/20 12:20 91 08/04/20 12:17 91 08/04/20 12:10 92 08/04/20 12:03 PG Care Time/CCT Total # of Minutes Spent Total Time Spent with Patient: Total time spent is greater than 50% in coordina tion of care (as documented) at patient's floor/unit and/or counseling patient: Coding Level of Care Code 56082 Subseq Hosp Care Lvl 3 Diagnoses Pancytopenia D61.818 Near syncope R55 Trimalleolar fracture of left ankle S82.852A Encounter type: initial encounter Fracture type: closed Leukocytosis D72.829 Leukocytosis type: unspecified Hypokalemia E87.6 Small cell lung cancer C34.90 Esophagitis K20.90 Hypertension I10 Hypercholesterolemia E78.00 Depression F32.9 Restless leg syndrome G25.81 GERD (gastroesophageal reflux disease) K21.9 DVT prophylaxis Z29.9 (1) Trimalleolar fracture of left ankle Encounter type: initial encounter Fracture type: closed Qualified Code(s): S82.852A - Displaced trimalleolar fracture of left lower leg, initial encounter for closed fracture (2) Leukocytosis Leukocytosis type: unspecified Qualified Code(s): D72.829 - Elevated white blood cell count, unspecified
[2020-08-05] MEDS: HYDROmorphone INJ 0.5 MG/0.5 ML SYR IV PRN ×5 (02:19→21:26)
[2020-08-05] MEDS: ONDANSETRON INJ 2 MG/ML 2 ML VIAL IV PRN ×5 (02:19→21:26)
[2020-08-05] MEDS ORDERED: Nursing to Pharmacy Communication SCH (05:45)
[2020-08-05 06:27] LABS: Hematocrit (blood only) 19.2 % (37-47); Hemoglobin 6.8 g/dL (12.0-16.0); Mean Corpuscular Hemoglobin 31.1 pg (25-34); Mean Corpuscular Hgb Conc 35.4 g/dL (32-36); Mean Corpuscular Volume 87.7 fL (80-100); Mean Platelet Volume 11.4 fL (7.4-10.4); Platelet Count 37 K/uL (130-400); RDW Coefficient of Variation 14.1 % (11.5-14.5); RDW Standard Deviation 45.8 fL (36.4-46.3); Red Blood Count 2.19 M/uL (4.2-5.4); White Blood Count 0.73 K/uL (4.8-10.8)
[2020-08-05] MEDS ORDERED: SODIUM CHLORIDE 0.9% 250 ML IV PRN (06:50)
--- NOTE | 2020-08-05 06:51 | Communication Note ---
Date of Service: August 05, 2020 Pt transfused 1U pRBCs, irradiated, for critical hgb of 6.8. 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
[2020-08-05 06:57] LABS: Eosinophils # (auto) 0.02 K/uL (0-0.5); Eosinophils % (auto) 2.7 %; Lymphocytes # (auto) 0.31 K/uL (1.2-3.4); Lymphocytes % (auto) 42.5 %; Monocytes # (auto) 0.24 K/uL (0.11-0.59); Monocytes % (auto) 32.9 %; Neutrophils # (auto) 0.16 K/uL (1.4-6.5); Neutrophils % (auto) 21.9 %; Spherocytes 1+
[2020-08-05 07:05] LABS: BUN Creatinine Ratio 13.9 (10-20); Calcium 7.6 mg/dl (8.5-10.1); Creatinine Clr Calc Pharmacy 62.6 ml/min; Est GFR (African American) 78.5; Est GFR (Non-African American) 67.7
[2020-08-05] MEDS: NSS + 20MEQ KCL 20 MEQ/1,000 ML BAG IV SCH (07:41)
[2020-08-05] MEDS: PROCHLORPERAZINE MALEATE 10 MG TAB PO PRN ×2 (08:44→14:21)
[2020-08-05] MEDS: PANTOprazole 40 MG TAB PO SCH ×2 (08:45→21:23)
[2020-08-05] MEDS: dilTIAZem HCL 240 MG CAPCR PO SCH (08:45)
[2020-08-05] MEDS: MAGNESIUM OXIDE 400 MG TAB PO SCH (08:46)
[2020-08-05] MEDS: FENOFIBRATE NANOCRYSTALLIZED 48 MG TABLET PO SCH (08:46)
[2020-08-05] MEDS: SUCRALFATE 1 GM TAB PO SCH ×4 (08:46→21:23)
[2020-08-05] MEDS: bisacodyL 5 MG TABEC PO SCH (08:57)
[2020-08-05] MEDS ORDERED: ENOXAPARIN INJ 40 MG/0.4 ML SYR SQ SCH (09:00)
--- NOTE | 2020-08-05 10:15 | Progress Notes ---
DATE: 08/05/2020 DIAGNOSES: 1. Myelosuppression attributable to chemotherapeutic effect. 2. Left ankle fracture dislocation. 3. Limited stage small cell lung cancer. 4. Acute renal injury. 5. Hypoalbuminemia. SUBJECTIVE: The patient was seen and examined at bedside again this morning. She from a clinical standpoint seems to be holding her own. She denies any fevers overnight. Orthopedics awaits to perform operative repair on her badly injured right ankle. Unfortunately, she remains quite myelosuppressed despite our efforts. Restarted Neupogen again subcutaneously. The patient has received transfusion of both platelets and packed RBCs. I am somewhat encouraged with her white count today. Finally, approaching 1000 in total perhaps by tomorrow, she will have dramatic rise and Friday, she may be able to have her surgery. She has resumed a soft diet. No complaints otherwise this morning. OBJECTIVE: GENERAL: A very pleasant 60-year-old female in no acute distress. VITAL SIGNS: Temperature 36.9, pulse 80, respiratory rate 18, blood pressure 128/57. SKIN: Pale. No rashes or lesions. HEENT: Oral mucosa without erythema or ulceration. HEART: Regular rate and rhythm. No clicks, rubs, murmurs or gallops. LUNGS: Clear to auscultation. ABDOMEN: Soft, nontender, nondistended. EXTREMITIES: Again, the injured extremity is splinted. The other extremity without peripheral edema. NEUROLOGIC: Grossly intact. LABORATORY DATA: WBC count 730, hemoglobin 6.8, platelet count 37,000, absolute neutrophil count 160. Sodium 137, potassium 3, chloride 103, carbon dioxide 27, creatinine 0.93, BUN 13. IMPRESSION: 1. Pancytopenia attributable to chemotherapeutic effect. 2. Left ankle fracture dislocation. Await ORIF. 3. Limited stage small cell lung cancer. 4. Acute renal injury. 5. Hypoalbuminemia. 6. Hypokalemia. PLAN: The patient was seen and examined at bedside. From a clinical standpoint seems to be holding her own. We will continue to work on her myelosuppression. She will receive another dose of Neupogen today. I believe she is ordered packed RBCs as well. Orthopedics awaits repair of the patient's left ankle and hopefully by Friday, her peripheral counts will be sufficient enough to do so. I have nothing further to add at this point. We will continue to visit her periodically. Agree with medical management otherwise.
[2020-08-05] MEDS: FILGRASTIM 480 MCG/1.6 ML VIAL SQ SCH (12:53)
--- NOTE | 2020-08-05 14:12 | Hospitalist Progress Note ---
Date of Service August 05, 2020 Assessment & Plan (1) Pancytopenia: Due to chemotherapy. - Patient has required 3 units of platelets apheresis, third unit on 08/04. - Patient has required 3 units of PRBC; most recently on 08/05. - Patient also receiving Neupogen today to help improve leukopenia. - Surgery has been postponed until Friday, hopefully numbers are better. (2) Trimalleolar fracture of left ankle: Evaluated by Dr. Lambert in the ER, reduced. - Planning for OR on 08/07 - Will make NPO after midnight on Friday. - Pain control ordered - Bowel regimen - Continue PT/OT per ortho service, currently non-weightbearing. (3) Near syncope: Likely orthostatic from dehydration. - Echo neg for acute issues, EF 50-55%, neg for structural issues. (4) Small cell lung cancer: Originally diagnosed March 2020, involving left upper lobe mass next to mediastinum, stage IIIa T3, N2, M0. Bilateral solid pulmonary nodules, s/p XRT finished 06/30/2020 and chemotherapy, completed cisplatin and etoposide treatment. - Last chemotherapy cycle 4 on 07/18/2020. - Recently underwent EGD on 07/07 found to have severe radiation esophagitis and esophageal spasms, was discharged on twice daily PPI and Carafate, diltiazem for esophageal spasms and nitro as needed for chest pain at home. - Follows with Dr. Lance as outpatient (5) Esophagitis: On EGD. - Continue BID PPI and Carafate - Magic mouthwash PRN for pain, swish and swallow as needed (6) Hypertension: BP is 135/70. - Continue diltiazem 240 mg daily - for esophageal spasm as above (7) Hypercholesterolemia: - Continue atorvastatin 10 mg (8) Depression: - History noted (9) Restless leg syndrome: - Noted- currently stable (10) DVT prophylaxis: SCDs - High risk, but presently plts < 50k, so hold Lovenox. Admission and Anticipated Discharge Date Admission Date: July 30, 2020 Subjective Still with abdominal/esophagus pain. The spasms are better sometimes and worse sometimes, but still come and go. Reports no fevers/chills, chest pain, shortness of breath, nausea, or vomiting. Physical Exam Constitutional: WD/WN, vitals as above Eyes: EOM intact bilaterally; no conjunctival abnormality ENMT: external ear and nose normal, oropharynx normal Neck: trachea midline, no thyromegaly normal visual inspection Respiratory: normal respiratory effort, lungs clear to auscultation no respiratory distress Cardiovascular: RRR, no murmur, no edema Gastrointestinal (Abdomen): Inspection/Auscultation: abdomen normal to inspection; abdomen not distended Musculoskeletal: no cyanosis or clubbing, extremities motor strength 5/5 Skin: no rashes, warm and dry Neurologic: moves all extremities and awake Psychiatric: Orientation: alert, oriented to person and cooperative Results & Data Results & Data ([facility]) Vital Signs (Past 12 Hours) Vital Signs Temp Pulse Pulse Resp BP BP Pulse Ox 08/05/20 14:00 36.7 C 82 18 136/67 93 08/05/20 13:00 36.7 C 78 18 143/70 H 91 08/05/20 12:00 36.7 C 81 18 141/67 H 92 08/05/20 11:41 36.9 C 70 18 137/73 90 08/05/20 11:32 36.9 C 73 18 136/68 90 08/05/20 11:02 36.9 C 74 18 138/70 92 08/05/20 10:29 36.8 C 81 18 130/72 94 08/05/20 07:55 36.9 C 80 18 128/57 L 90 08/05/20 07:17 66 08/05/20 07:06 94 08/05/20 04:51 94 08/05/20 03:00 37.3 C 84 18 105/56 L 87 L PG Care Time/CCT Total # of Minutes Spent Total Time Spent with Patient: Total time spent is greater than 50% in coordination of care (as documented) at patient's floor/unit and/or counseling patient: Coding Level of Care Code 22330 Subseq Hosp Care Lvl 3 Diagnoses Pancytopenia D61.818 Trimalleolar fracture of left ankle S82.852A Encounter type: initial encounter Fracture type: closed Near syncope R55 Small cell lung cancer C34.90 Esophagitis K20.90 Hypertension I10 Hypercholesterolemia E78.00 Depression F32.9 Restless leg syndrome G25.81 DVT prophylaxis Z29.9 (1) Trimalleolar fracture of left ankle Encounter type: initial encounter Fracture type: closed Qualified Code(s): S82.852A - Displaced trimalleolar fracture of left lower leg, initial encounter for closed fracture
[2020-08-05] MEDS: POTASSIUM CHLORIDE / WTR 20 MEQ/100 ML PLCT IV SCH ×3 (15:36→19:13)
[2020-08-05] MEDS: ATORVASTATIN 10 MG TAB PO SCH (21:23)
[2020-08-06] MEDS: ONDANSETRON INJ 2 MG/ML 2 ML VIAL IV PRN ×4 (02:03→20:07)
[2020-08-06] MEDS: HYDROmorphone INJ 0.5 MG/0.5 ML SYR IV PRN ×5 (02:04→20:07)
[2020-08-06] MEDS: HEPARIN 100 UNIT/ML 5ML FLUSH FLUSH PRN ×2 (05:44→20:11)
[2020-08-06 06:56] LABS: Hematocrit (blood only) 23.3 % (37-47); Hemoglobin 8.3 g/dL (12.0-16.0); Mean Corpuscular Hemoglobin 30.6 pg (25-34); Mean Corpuscular Hgb Conc 35.6 g/dL (32-36); Mean Platelet Volume 11.6 fL (7.4-10.4); Platelet Count 25 K/uL (130-400); RDW Coefficient of Variation 14.6 % (11.5-14.5); Red Blood Count 2.71 M/uL (4.2-5.4); White Blood Count 3.14 K/uL (4.8-10.8)
[2020-08-06 07:03] LABS: BUN Creatinine Ratio 12.8 (10-20); Calcium 7.8 mg/dl (8.5-10.1); Creatinine Clr Calc Pharmacy 68.6 ml/min; Est GFR (African American) 87.5; Est GFR (Non-African American) 75.5; Magnesium 0.8 mg/dl (1.8-2.4); Phosphorus 1.8 mg/dl (2.5-4.9); Potassium 3.2 mmol/L (3.5-5.1)
[2020-08-06] MEDS ORDERED: POTASSIUM PHOS 3 MMOL/1 ML INFUSION IV STA (07:25)
[2020-08-06 07:27] LABS: Dohle Bodies 1+; Platelet Estimate SIGNIFIC DECREASED (Normal)
[2020-08-06 07:46] LABS: ALC (manual) 0.47 K/uL (1.2-3.4); ANC (manual) 1.86 K/uL (1.4-6.5); Basophils # (manual) 0.03 K/uL (0-0.2); Basophils % (manual) 1.1 %; Blast # (manual) 0.02 K/uL (0-0); Blast Cells % (manual) 0.6 %; Lymphocytes # (manual) 0.47 K/uL (1.2-3.4); Lymphocytes % (manual) 14.9 %; Metamyelocytes # (manual) 0.07 K/uL (0-0); Metamyelocytes % (manual) 2.3 %; Monocytes # (manual) 0.65 K/uL (0.11-0.59); Monocytes % (manual) 20.7 %; Neutrophils # (manual) 1.86 K/uL (1.4-6.5); Neutrophils % (manual) 59.3 %; Promyelocytes # (manual) 0.03 K/uL (0-0); Promyelocytes % (manual) 1.1 %
[2020-08-06] MEDS ORDERED: CALCIUM CHLORIDE 10% 500 MG in SODIUM CHLORIDE 0.9% 50 ML IV ONE (08:00)
[2020-08-06] MEDS: MAGNESIUM SULFATE / D5W 1 GM/100 ML BAG IV SCH ×3 (08:18→12:13)
[2020-08-06] MEDS: POTASSIUM CHLORIDE / WTR 20 MEQ/100 ML PLCT IV SCH ×3 (08:19→12:13)
[2020-08-06] MEDS: PROCHLORPERAZINE MALEATE 10 MG TAB PO PRN (09:40)
[2020-08-06] MEDS: FENOFIBRATE NANOCRYSTALLIZED 48 MG TABLET PO SCH (09:47)
[2020-08-06] MEDS: bisacodyL 5 MG TABEC PO SCH (09:47)
[2020-08-06] MEDS: SUCRALFATE 1 GM TAB PO SCH (09:47)
[2020-08-06] MEDS: dilTIAZem HCL 240 MG CAPCR PO SCH (09:47)
[2020-08-06] MEDS: PANTOprazole 40 MG TAB PO SCH ×2 (09:47→20:18)
[2020-08-06] MEDS ORDERED: Nursing to Pharmacy Communication SCH (10:15)
[2020-08-06] MEDS: SUCRALFATE 1 GM/10 ML UDC PO SCH ×3 (11:59→20:06)
--- NOTE | 2020-08-06 13:35 | Hospitalist Progress Note ---
Date of Service August 06, 2020 Assessment & Plan (1) Pancytopenia: Due to chemotherapy. - Patient has required 3 units of platelets apheresis, third unit on 08/04. - Patient has required 3 units of PRBC; most recently on 08/05. - Patient received Neupogen on 08/04 & 08/05 to help improve leukopenia. This is improving; now WBC up to 3.2. - Surgery has been postponed until Friday, hopefully numbers are better. - Electrolytes repleted. Still not eating much due to the pain when eating. (2) Trimalleolar fracture of left ankle: Evaluated by Dr. Lambert in the ER, reduced. - Planning for OR on 08/07 - Will make NPO after midnight on Friday. - Pain control ordered - Bowel regimen - Continue PT/OT per ortho service, currently non-weightbearing. (3) Near syncope: Likely orthostatic from dehydration. - Echo neg for acute issues, EF 50-55%, neg for structural issues. (4) Small cell lung cancer: Originally diagnosed March 2020, involving left upper lobe mass next to mediastinum, stage IIIa T3, N2, M0. Bilateral solid pulmonary nodules, s/p XRT finished 06/30/2020 and chemotherapy, completed cisplatin and etoposide treatment. - Last chemotherapy cycle 4 on 07/18/2020. - Recently underwent EGD on 07/07 found to have severe radiation esophagitis and esophageal spasms, was discharged on twice daily PPI and Carafate, diltiazem for esophageal spasms and nitro as needed for chest pain at home. - Follows with Dr. Lance as outpatient (5) Esophagitis: On EGD. - Continue BID PPI and Carafate - Magic mouthwash PRN for pain, swish and swallow as needed (6) Hypertension: BP is 135/70. - Continue diltiazem 240 mg daily - for esophageal spasm as above (7) Hypercholesterolemia: - Continue atorvastatin 10 mg (8) Depression: - History noted (9) Restless leg syndrome: - Noted- currently stable (10) DVT prophylaxis: SCDs - High risk, but presently plts < 50k, so hold Lovenox. Admission and Anticipated Discharge Date Admission Date: July 30, 2020 Subjective Stable today. Her esophageal pain is not radically different from prior days. Reports no fevers/chills, chest pain, shortness of breath, abdominal pain, nausea, or vomiting. Physical Exam Constitutional: WD/WN, vitals as above Eyes: EOM intact bilaterally; no conjunctival abnormality ENMT: external ear and nose normal, oropharynx normal Neck: trachea midline, no thyromegaly normal visual inspection Respiratory: normal respiratory effort, lungs clear to auscultation no respiratory distress Cardiovascular: RRR, no murmur, no edema Gastrointestinal (Abdomen): Inspection/Auscultation: abdomen normal to inspection; abdomen not distended Musculoskeletal: no cyanosis or clubbing, extremities motor strength 5/5 Skin: no rashes, warm and dry Neurologic: moves all extremities and awake Psychiatric: Orientation: alert, oriented to person and cooperative Results & Data Results & Data ([facility]) Vital Signs (Past 12 Hours) Vital Signs Temp Pulse Pulse Resp BP BP Pulse Ox 08/06/20 11:26 36.7 C 96 H 18 149/73 H 97 08/06/20 10:49 96 08/06/20 09:55 87 L 08/06/20 07:54 37.0 C 85 18 144/77 H 92 08/06/20 07:34 82 08/06/20 05:00 37 C 86 16 154/70 H 89 L 08/06/20 03:08 72 PG Care Time/CCT Total # of Minutes Spent Total Time Spent with Patient: Total time spent is greater than 50% in coordination of care (as documented) at patient's floor/unit and/or counseling patient: Coding Level of Care Code 16339 Subseq Hosp Care Lvl 2 Diagnoses Pancytopenia D61.818 Trimalleolar fracture of left ankle S82.852A Encounter type: initial encounter Fracture type: closed Near syncope R55 Small cell lung cancer C34.90 Esophagitis K20.90 Hypertension I10 Hypercholesterolemia E78.00 Depression F32.9 Restless leg syndrome G25.81 DVT prophylaxis Z29.9 (1) Trimalleolar fracture of left ankle Encounter type: initial encounter Fracture type: closed Qualified Code(s): S82.852A - Displaced trimalleolar fracture of left lower leg, initial encounter for closed fracture
[2020-08-06] MEDS ORDERED: POTASSIUM PHOSPHATE 24 MMOL in SODIUM CHLORIDE 0.9% 500 ML IV ONE (14:00)
[2020-08-06] MEDS: ATORVASTATIN 10 MG TAB PO SCH (20:17)
[2020-08-07] MEDS: HYDROmorphone INJ 0.5 MG/0.5 ML SYR IV PRN ×5 (00:13→22:42)
[2020-08-07] MEDS: ONDANSETRON INJ 2 MG/ML 2 ML VIAL IV PRN ×2 (00:13→04:50)
[2020-08-07 06:30] LABS: Hemoglobin 8.1 g/dL (12.0-16.0); Mean Corpuscular Hemoglobin 30.6 pg (25-34); Mean Corpuscular Hgb Conc 35.2 g/dL (32-36); Mean Corpuscular Volume 86.8 fL (80-100); Mean Platelet Volume 12.6 fL (7.4-10.4); Platelet Count 33 K/uL (130-400); RDW Coefficient of Variation 14.3 % (11.5-14.5); RDW Standard Deviation 45.2 fL (36.4-46.3); Red Blood Count 2.65 M/uL (4.2-5.4); White Blood Count 7.21 K/uL (4.8-10.8)
[2020-08-07 06:51] LABS: Albumin Globulin Ratio 0.9 (0.9-2); Albumin Level 2.4 gm/dl (3.4-5.0); BUN Creatinine Ratio 13.5 (10-20); Calcium 8.1 mg/dl (8.5-10.1); Creatinine Clr Calc Pharmacy 72.9 ml/min; Est GFR (African American) 94.2; Est GFR (Non-African American) 81.3; Globulin 2.8 gm/dl (2.5-4.0); Magnesium 1.3 mg/dl (1.8-2.4); Potassium 3.2 mmol/L (3.5-5.1); Total Protein 5.2 gm/dl (6.4-8.2)
[2020-08-07 06:53] LABS: Phosphorus 3.4 mg/dl (2.5-4.9)
[2020-08-07] MEDS ORDERED: POTASSIUM PHOS 3 MMOL/1 ML INFUSION IV STA (06:53)
[2020-08-07] MEDS: MAGNESIUM SULFATE / D5W 1 GM/100 ML BAG IV SCH ×6 (08:00→18:52)
[2020-08-07] MEDS ORDERED: CALCIUM CHLORIDE 10% 500 MG in SODIUM CHLORIDE 0.9% 50 ML IV SCH ×2 (08:00→14:45)
[2020-08-07] MEDS: POTASSIUM CHLORIDE / WTR 20 MEQ/100 ML PLCT IV SCH ×4 (08:00→17:05)
[2020-08-07] MEDS ORDERED: POTASSIUM PHOSPHATE 24 MMOL in SODIUM CHLORIDE 0.9% 500 ML IV ONE ×2 (08:00→14:45)
--- NOTE | 2020-08-07 08:18 | Progress Notes ---
DATE: 08/07/2020 MEDICAL ONCOLOGY PROGRESS NOTE DIAGNOSES: 1. Myelosuppression attributable to chemotherapeutic effect. 2. Left ankle fracture dislocation. 3. Limited stage small cell lung cancer. 4. Acute renal injury. 5. Hypoalbuminemia. SUBJECTIVE: Lori was seen and examined at bedside again this morning. Hopefully, orthopedics will take her to the operating room for fixative repair of her badly injured left ankle. Her WBC count for the most part is vastly improved; however, her platelets continue to lag. We will recommend a preoperative and postoperative transfusion of single donor plateletpheresis. The patient complains of some mild nausea this morning but denies pain. Nursing reports no overnight difficulties. PHYSICAL EXAMINATION: GENERAL: Very pleasant 60-year-old in no acute distress. VITAL SIGNS: Temperature 37, pulse 84, respiratory rate 18, blood pressure 165/65. SKIN: Without rash or lesion. HEENT: Oral mucosa without erythema or ulceration. HEART: Regular rate and rhythm. LUNGS: Clear to auscultation bilaterally. ABDOMEN: Soft, nontender, nondistended. EXTREMITIES: No peripheral edema on the right. Left ankle is splinted at present. NEUROLOGIC: Grossly intact. LABORATORY DATA: WBC count 7210, hemoglobin 8.1, platelet count 33,000. Sodium 135, potassium 3.2, chloride 101, carbon dioxide 29, BUN 11, creatinine 0.8, albumin 2.4. IMPRESSION: 1. Pancytopenia attributable to chemotherapeutic effect. 2. Left ankle fracture dislocation. Await open reduction and internal fixation perhaps today. 3. Limited stage small cell lung cancer. 4. Acute renal injury (resolved). 5. Hypoalbuminemia. PLAN: Hopefully, Lori will be able to go to the operating room today to fix her ankle. I have recommended the hospitalist service to order a single donor platelet pheresis immediately and have another unit on hand for either intraoperative or postoperative transfusion. Her WBCs for the most part have recovered. Her hemoglobin continues to lack a little bit, but anticipate improvement on that front as well. We will continue to follow Lori periodically during hospitalization.
[2020-08-07] MEDS: SUCRALFATE 1 GM/10 ML UDC PO SCH ×4 (09:25→20:27)
[2020-08-07] MEDS: PANTOprazole 40 MG TAB PO SCH ×2 (09:25→20:27)
[2020-08-07] MEDS: bisacodyL 5 MG TABEC PO SCH (09:25)
[2020-08-07] MEDS: FENOFIBRATE NANOCRYSTALLIZED 48 MG TABLET PO SCH (09:25)
[2020-08-07] MEDS: PROCHLORPERAZINE MALEATE 10 MG TAB PO PRN (09:26)
[2020-08-07] MEDS: dilTIAZem HCL 240 MG CAPCR PO SCH (09:27)
[2020-08-07] MEDS ORDERED: MIDAZOLAM HCL 1 MG/ML 2ML VIAL ONE (09:47)
[2020-08-07] MEDS ORDERED: fentaNYL citrate 100 MCG/2 ML VIAL ONE (09:47)
[2020-08-07] MEDS: HEPARIN 100 UNIT/ML 5ML FLUSH FLUSH PRN (09:54)
--- NOTE | 2020-08-07 10:13 | Orthopedic Progress Note ---
Date of Service August 07, 2020 Assessment & Plan (1) Trimalleolar fracture of left ankle: HD # 9, Left Trimalleolar ankle fracture. Medical optimized and cleared from Hospitalist and oncology service to move forward with ORIF. Patient has been consented and limb initialled. Continue NPO. NWB LLE. Continue care per primary service. Palettes remain low, receiving transfusion and primary service will continue to monitor and transfuse as needed. Admission and Anticipated Discharge Date Admission Date: July 30, 2020 Subjective I'm ready for surgery Review of Systems Review of Systems: All systems reviewed & are unremarkable except as noted in HPI & below Physical Exam Physical Exam: LLE: Splint is in good condition. Wiggling toes. BCR < 2sec. Sensation to Light touch intact. Results & Data ([facility]) Vital Signs (Past 12 Hours) Vital Signs Temp Pulse Pulse Resp BP BP Pulse Ox 08/07/20 08:54 36.7 C 84 18 174/71 H 08/07/20 08:38 36.6 C 78 16 160/67 H 92 08/07/20 08:07 36.7 C 84 18 172/77 H 08/07/20 07:51 36.8 C 74 20 168/78 H 95 08/06/20 22:54 37.0 C 84 18 165/65 H 90 Laboratory Results 08/07/20 08/07/20 08/05/20 Range/Units 05:28 05:28 08:03 WBC 7.21 (4.8-10.8) K/uL RBC 2.65 L (4.2-5.4) M/uL Hgb 8.1 L (12.0-16.0) g/dL Hct 23.0 L (37-47) % MCV 86.8 (80-100) fL MCH 30.6 (25-34) pg MCHC 35.2 (32-36) g/dL RDW Std Deviation 45.2 (36.4-46.3) fL RDW Coeff of Sebastián 14.3 (11.5-14.5) % Plt Count 33 L (130-400) K/uL MPV 12.6 H (7.4-10.4) fL Sodium 135 L (136-145) mmol/L Potassium 3.2 L (3.5-5.1) mmol/L Chloride 101 (98-107) mmol/L Carbon Dioxide 29 (21-32) mmol/L Anion Gap 5.0 (3-11) BUN 11 (7-18) mg/dl Creatinine 0.80 (0.6-1.2) mg/dl Est Cr Clr Drug Dosing 72.9 ml/min Est GFR ( Amer) 94.2 Est GFR (Non-Af Amer) 81.3 BUN/Creatinine Ratio 13.5 (10-20) Glucose 86 (70-99) mg/dl Calcium 8.1 L (8.5-10.1) mg/dl Phosphorus 3.4 D (2.5-4.9) mg/dl Magnesium 1.3 L (1.8-2.4) mg/dl Total Bilirubin 1.0 (0.2-1) mg/dl AST 6 L (15-37) U/L ALT 10 L (12-78) U/L Alkaline Phosphatase 79 (45-117) U/L Total Protein 5.2 L (6.4-8.2) gm/dl Albumin 2.4 L (3.4-5.0) gm/dl Globulin 2.8 (2.5-4.0) gm/dl Albumin/Globulin Ratio 0.9 (0.9-2) Blood Type B Positive Antibody Screen NEGATIVE Crossmatch See Detail (1) Trimalleolar fracture of left ankle Encounter type: initial encounter Fracture type: closed Qualified Code(s): S82.852A - Displaced trimalleolar fracture of left lower leg, initial encounter for closed fracture
[2020-08-07] MEDS ORDERED: ceFAZolin 2,000 MG/15 ML IV PUSH IV ONE (10:19)
[2020-08-07] MEDS ORDERED: BUPIVACAINE 0.5 % 5 MG/1 ML MPF 30ML VIAL ONE (10:21)
[2020-08-07] MEDS ORDERED: LIDOCAINE/EPINEPHRINE 1% 20 ML VIAL ONE (10:21)
[2020-08-07] MEDS ORDERED: ATROPINE SULFATE 0.1 MG/ML 10ML SYR IV PRN (10:24)
[2020-08-07] MEDS ORDERED: ePHEDrine sulfate 50 MG/ML AMP IV PRN (10:24)
[2020-08-07] MEDS ORDERED: PROMETHAZINE HCL 6.25 MG in SODIUM CHLORIDE 0.9% 50 ML IV PRN (10:24)
[2020-08-07] MEDS ORDERED: HYDROmorphone INJ 2 MG/ML SYR/VIAL IV PRN (10:24)
[2020-08-07] MEDS ORDERED: ONDANSETRON INJ 2 MG/ML 2 ML VIAL IV PRN (10:24)
[2020-08-07] MEDS ORDERED: fentaNYL citrate 100 MCG/2 ML CARP IV PRN (10:24)
[2020-08-07] MEDS: ceFAZolin 2000MG 2,000 MG/15 ML SYR IV ONE ×2 (10:37→10:38)
[2020-08-07] MEDS ORDERED: LIDOCAINE HCL 2% 2 ML VIAL/AMP(20MG/ML) INFIL ONE (11:13)
[2020-08-07] MEDS ORDERED: PROPOFOL IV EMULSION 10 MG/ML 20 ML VIAL IV ONE (11:13)
[2020-08-07] MEDS ORDERED: ROCURONIUM BROMIDE 10 MG/ML 5 ML VIAL IV ONE (11:13)
[2020-08-07] MEDS ORDERED: ONDANSETRON INJ 2 MG/ML 2 ML VIAL ONE (11:13)
[2020-08-07] MEDS ORDERED: DEXAMETHASONE SOD INJ 4 MG/ML VIAL ONE (11:13)
[2020-08-07] MEDS ORDERED: HYDROmorphone INJ 2 MG/ML SYR/VIAL ONE (12:34)
[2020-08-07] MEDS ORDERED: TXA 10% Non-IV Routes 100 MG/ML VIAL TOP ONE (12:39)
[2020-08-07] MEDS ORDERED: GLYCOPYRROLATE 0.2 MG/ML VIAL ONE (12:51)
[2020-08-07] MEDS ORDERED: NEOSTIGMINE METHYLSULFATE 5 MG/5 ML SYR ONE (12:51)
[2020-08-07] MEDS ORDERED: TRANEXAMIC ACID 1,000 MG in 0.9 % SODIUM CHLORIDE 100 ML TOP SCH (13:00)
--- NOTE | 2020-08-07 13:15 | Fluoroscopy Report ---
FL ankle LT min 3V RTN CLINICAL HISTORY: ORIF LEFT ANKLE FX COMPARISON STUDY: Left ankle 07/30/2020. FLUOROSCOPY TIME: 27 seconds. FINDINGS: 3 fluoroscopic spot images of left ankle demonstrate internal fixation with cortical plates and screws. There is pinning of the syndesmosis. The hardware appears intact. There is near anatomic alignment. IMPRESSION: Fluoroscopy provided for internal fixation of the left ankle fracture. ACT 112: Negative or not required by law. Electronically signed by: Francisco Aquino M.D. 08/07/2020 1:14 PM
--- NOTE | 2020-08-07 13:15 | Post Operative Brief Note ---
Immediate Post Op Note v1 Date of Surgery August 07, 2020 Pre & Post Diagnosis Operation Date: 08/07/20 11:30 Pre-Op Diagnosis: Left Trimalleolar ankle fracture Post-Op Diagnosis: Left Trimalleolar ankle fracture I identified the patient and participated in the time-out.: Yes Procedure Operation Date: 08/07/20 11:30 Actual Procedures p Left Ankle Fracture Open Reduction Internal Fixation(Left) - Donnie Abdi MD Surgeon Donnie Abdi MD Serologist Kashif Huntley MD & KERRIE Winn PA-C Estimated Blood Loss 30 Findings Consistent with Post-Op Diagnosis Fluids 700 cc Anesthesia Type General Complications none
--- NOTE | 2020-08-07 13:18 | Operative Report ---
Post Operative Report Pre & Post Diagnosis Operation Date: 08/07/20 11:30 Pre-Op Diagnosis: Left Trimalleolar ankle fracture Post-Op Diagnosis: Left Trimalleolar ankle fracture I identified the patient and participated in the time-out.: Yes Procedure Operation Date: 08/07/20 11:30 Actual Procedures p Left Ankle Fracture Open Reduction Internal Fixation(Left) - Donnie Abdi MD Surgeon Donnie Abdi MD Holiday Detector Operator Kashif Huntley MD & KERRIE Winn PA-C Estimated Blood Loss 30 Findings See Below Displaced, comminuted, Trimalleolar left ankle fracture, with Tillaux fragment. Syndesmosis stable after ORIF Bra[place] and Tillaux fragment. Posterior mal also well reduced and less than 10% articular surface. Fluids 700 cc Specimens n/a Anesthesia Type General Complications none Indications The patient is a 60 year old female who injured their left ankle last week and had been admitted to the hospital due to her pancytopenia and has finally been deemed medically optimized and cleared for surgery. The patient understands the risks of surgery, which include but are not limited to: bleeding, infection, re- operation, damage to nerves and arteries, continued pain, loss of reduction, hardware failure, the need for repeat surgery, decrease level of activity, and DVT. The patient understand all of these instructions and explanations, all of their questions have been satisfactorily addressed. The patient have elected to proceed with surgery and the informed consent was signed. Description of Procedure IMPLANTS: 1) 7 hole, Straight Recon locking plate (Arthrex). 2) 3.5 mm Cortical screws (12 mm and 18 mm x2). 3) 3.5 mm locking screws (12 mm x2 and 16 mm). 4) 4.0 mm x 42 mm short thread cannulated screws x2 (medial Mal). 5) 2.7 mm Cortical screw (18 mm). 6) 0.9 mm K-wire x 2. PROCEDURE: The patient was taken to the Operating Room and placed in the supine position on the operating table. After general anesthetic was administered a multidisciplinary time-out was performed identifying the patient my initials on the left limb as the correct and operative limb. Prior to the incision being made, 2 grams of intravenous Ancef were given. The left leg was prepped and draped in the standard fashion. The distal fibula, joint line, and medial malleolus were marked as well as the planned incisions medial and laterally. The planned incision laterally and medial incisions were injected with a 50:50 mixture of 1% lidocaine and 0.5 % Marcaine with epi for a total of 12 cc. The planned incision laterally was made and carried down to the fibula. The fracture site was easily identified as there was a tear in the fascia. The Superficial Peroneal nerve was identified approximately 7cm proximal to the tip of fibula and was dissected and protected throughout the case. The fracture site was debrided with copious irrigation, dental pick, and rongeur, removing any soft tissue and hematoma. Using a pointed reduction clamp the fracture was reduced. A single lag screw was placed in the standard fashion and the clamps were able to be removed. The 7-hole Straight recon locking plate fit the distal fibula and held in place by be-be tacks. A non-locking screw was placed through the plate proximal and distal to the fracture. Then locking screws were placed in the remaining available holes. The 2 central holes were left unfilled as the lag screw blocked one hole and the fracture line involved the other. Next the Tillaux fracture was addressed. Using blunt dissection the fragment was exposed through the lateral incision. The fracture site was debrided with copious irrigation, dental pick, and rongeur, removing any soft tissue and hematoma. Using a dental pick and freer the fragment was held reduced. The fragment was too small and soft to accept a screw, so two 0.9 mm K-wires were placed and later cut short, bent, and impacted further to secure the Tillaux fracture. Our attention was drawn to the medial malleolus. A 5 cm incision was made with a scalpel. The fracture was easily identified. The periosteum was removed from the fracture site. The fracture site was debrided with copious irrigation, dental pick, and rongeur, removing any soft tissue and hematoma. Using a freer to reduce the medial malleolus 2 parallel K-wires were placed. Two 4.0 cannulated screws were placed in the standard fashion by drilling the outer cortex and counter sinking prior to placing the screws. Fluoroscopy was used throughout the case to ensure proper reduction and placement of hardware. Testing via external rotation testing and cotton testing showed the syndesmosis to be reduced and stable. The Tourniquet was deflated. The wounds were copiously irrigated. Final x-rays were obtained. Topical TXA was placed in both wounds. The fascia over the plate and periosteum were closed with 2-0 Vicryl and the subcutaneous layer were closed with 3-0 Vicryl. The skin was closed with Ruthie. The sponge and needle counts were correct. The wounds were covered with Xeroform, 4x4's, ABD's, Steril cast padding, and an AO splint was placed. The patient was awakened and taken to the recovery room in stable condition. Post-op Instructions: The patient was re-admitted to hospital on the hospitalist service. The patient will remain NWB while in the splint. Once the patient is switched to a cam boot, they will be, toe-touch weightbearing. PT/OT. I attest to the content of the Intraoperative Record and any orders documented therein. Any exceptions are noted below.
--- NOTE | 2020-08-07 13:33 | Operative Report ---
Post Operative Report Pre & Post Diagnosis Operation Date: 08/02/20 07:15 <No data on this case meets the specified criteria> Operation Date: 08/03/20 07:00 <No data on this case meets the specified criteria> Operation Date: 08/07/20 11:30 Pre-Op Diagnosis: Left Trimalleolar ankle fracture Post-Op Diagnosis: Left Trimalleolar ankle fracture I identified the patient and participated in the time-out.: Yes Procedure Operation Date: 08/02/20 07:15 <No data on this case meets the specified criteria> Operation Date: 08/03/20 07:00 <No data on this case meets the specified criteria> Operation Date: 08/07/20 11:30 Actual Procedures p Left Ankle Fracture Open Reduction Internal Fixation(Left) - Donnie Abdi MD Surgeon Donnie Abdi MD Sales Agent Financial Report Service Kashif Huntley MD & KERRIE Winn PA-C Estimated Blood Loss 30 Findings Consistent with Post-Op Diagnosis Specimens none Complications none Disposition Accompanied Patient To Recovery: Yes Disposition: Recovery Room Description of Procedure I was present during the entire case assisting with positioning, prepping, draping, retraction, wound closure and dressing/splint application. Fellow also present. I served as an extra set of hands. Please see Dr. Abdi procedure note for specifics. I attest to the content of the Intraoperative Record and any orders documented therein. Any exceptions are noted below.
--- NOTE | 2020-08-07 14:06 | Anesthesiology Progress Note ---
Date of Service August 07, 2020 Anesthesia Post Procedure Vital Signs Vital Signs: Temp Pulse Pulse Pulse Resp BP BP 08/07/20 13:50 87 14 08/07/20 13:40 91 H 14 08/07/20 13:30 37.1 C 86 17 08/07/20 10:09 37 C 93 H 20 183/76 H 08/07/20 08:54 36.7 C 84 18 174/71 H 08/07/20 08:38 36.6 C 78 16 160/67 H 08/07/20 08:07 36.7 C 84 18 172/77 H 08/07/20 07:51 36.8 C 74 20 08/06/20 22:54 37.0 C 84 18 08/06/20 19:26 36.9 C 77 18 08/06/20 15:46 36.6 C 80 18 BP Pulse Ox 08/07/20 13:50 139/75 97 08/07/20 13:40 144/72 H 98 08/07/20 13:30 170/95 H 98 08/07/20 10:09 93 08/07/20 08:54 08/07/20 08:38 92 08/07/20 08:07 08/07/20 07:51 168/78 H 95 08/06/20 22:54 165/65 H 90 08/06/20 19:26 170/79 H 94 08/06/20 15:46 150/71 H 95 Pain Intensity Right Ankle: Pain Intensity: 6 Left Ankle: Pain Intensity: 5 Transfer of Care Handoff Completed per policy Notes Mental Status: alert / awake / arousable Patient Amnestic to Procedure: Yes Nausea / Vomiting: adequately controlled Pain: adequately controlled Airway Patency, RR, SpO2: stable & adequate BP & HR: stable & adequate Hydration State: stable & adequate Anesthetic Complications: no major complications apparent
--- NOTE | 2020-08-07 15:39 | Hospitalist Progress Note ---
Date of Service August 07, 2020 Assessment & Plan (1) Pancytopenia: Due to chemotherapy. - Patient has required 3 units of platelets apheresis, third unit on 08/04. - Patient has required 3 units of PRBC; most recently on 08/05. - Patient received Neupogen on 08/04 & 08/05 to help improve leukopenia. This is improving; now WBC up to 3.2. - Surgery has been postponed until Friday, hopefully numbers are better. - Electrolytes repleted. Still not eating much due to the pain when eating. More nausea today. Hoping to get surgery today. (2) Trimalleolar fracture of left ankle: Evaluated by Dr. Lambert in the ER, reduced. - Planning for OR on 08/07 - Pain control ordered - Bowel regimen - Continue PT/OT per ortho service, currently non-weightbearing. (3) Near syncope: Likely orthostatic from dehydration. - Echo neg for acute issues, EF 50-55%, neg for structural issues. (4) Small cell lung cancer: Originally diagnosed March 2020, involving left upper lobe mass next to mediastinum, stage IIIa T3, N2, M0. Bilateral solid pulmonary nodules, s/p XRT finished 06/30/2020 and chemotherapy, completed cisplatin and etoposide treatment. - Last chemotherapy cycle 4 on 07/18/2020. - Recently underwent EGD on 07/07 found to have severe radiation esophagitis and esophageal spasms, was discharged on twice daily PPI and Carafate, diltiazem for esophageal spasms and nitro as needed for chest pain at home. - Follows with Dr. Lance as outpatient (5) Esophagitis: On EGD. - Continue BID PPI and Carafate - Magic mouthwash PRN for pain, swish and swallow as needed (6) Hypertension: BP is 135/70. - Continue diltiazem 240 mg daily - for esophageal spasm as above (7) Hypercholesterolemia: - Continue atorvastatin 10 mg (8) Depression: - History noted (9) Restless leg syndrome: - Noted- currently stable (10) DVT prophylaxis: SCDs - High risk, but presently plts < 50k, so hold Lovenox. Admission and Anticipated Discharge Date Admission Date: July 30, 2020 Subjective Feels pretty well this morning after some Zofran for nausea. Reports no fevers/chills, chest pain, shortness of breath, abdominal pain, or vomiting. Physical Exam Constitutional: WD/WN, vitals as above Eyes: EOM intact bilaterally; no conjunctival abnormality ENMT: external ear and nose normal, oropharynx normal Neck: trachea midline, no thyromegaly normal visual inspection Respiratory: normal respiratory effort, lungs clear to auscultation no respiratory distress Cardiovascular: RRR, no murmur, no edema Gastrointestinal (Abdomen): Inspection/Auscultation: abdomen normal to inspection; abdomen not distended Musculoskeletal: no cyanosis or clubbing, extremities motor strength 5/5 Skin: no rashes, warm and dry Neurologic: moves all extremities and awake Psychiatric: Orientation: alert, oriented to person and cooperative Results & Data Results & Data ([facility]) Vital Signs (Past 12 Hours) Vital Signs Temp Pulse Pulse Pulse Resp BP BP 08/07/20 15:14 36.7 C 74 18 08/07/20 14:51 36.7 C 71 18 08/07/20 14:20 36.7 C 88 18 08/07/20 13:50 87 14 08/07/20 13:40 91 H 14 08/07/20 13:30 37.1 C 86 17 08/07/20 10:09 37 C 93 H 20 183/76 H 08/07/20 08:54 36.7 C 84 18 174/71 H 08/07/20 08:38 36.6 C 78 16 160/67 H 08/07/20 08:07 36.7 C 84 18 172/77 H 08/07/20 07:51 36.8 C 74 20 BP Pulse Ox 08/07/20 15:14 192/79 H 94 08/07/20 14:51 186/77 H 94 08/07/20 14:20 150/71 H 91 08/07/20 13:50 139/75 97 08/07/20 13:40 144/72 H 98 08/07/20 13:30 170/95 H 98 08/07/20 10:09 93 08/07/20 08:54 08/07/20 08:38 92 08/07/20 08:07 08/07/20 07:51 168/78 H 95 PG Care Time/CCT Total # of Minutes Spent Total Time Spent with Patient: Total time spent is greater than 50% in coordination of care (as documented) at patient's floor/unit and/or counseling patient: Coding Level of Care Code 07395 Subseq Hosp Care Lvl 2 Diagnoses Pancytopenia D61.818 Trimalleolar fracture of left ankle S82.852A Encounter type: initial encounter Fracture type: closed Near syncope R55 Small cell lung cancer C34.90 Esophagitis K20.90 Hypertension I10 Hypercholesterolemia E78.00 Depression F32.9 Restless leg syndrome G25.81 DVT prophylaxis Z29.9 (1) Trimalleolar fracture of left ankle Encounter type: initial encounter Fracture type: closed Qualified Code(s): S82.852A - Displaced trimalleolar fracture of left lower leg, initial encounter for closed fracture
[2020-08-07] MEDS: ATORVASTATIN 10 MG TAB PO SCH (20:27)
[2020-08-08] MEDS: ONDANSETRON INJ 2 MG/ML 2 ML VIAL IV PRN ×2 (00:28→06:21)
[2020-08-08] MEDS: HEPARIN 100 UNIT/ML 5ML FLUSH FLUSH PRN ×3 (01:05→14:44)
[2020-08-08] MEDS: HYDROmorphone INJ 0.5 MG/0.5 ML SYR IV PRN ×2 (06:21→10:16)
[2020-08-08 06:39] LABS: Hematocrit (blood only) 22.2 % (37-47); Hemoglobin 7.9 g/dL (12.0-16.0); Mean Corpuscular Hemoglobin 30.9 pg (25-34); Mean Corpuscular Hgb Conc 35.6 g/dL (32-36); Mean Corpuscular Volume 86.7 fL (80-100); Mean Platelet Volume 12.1 fL (7.4-10.4); Platelet Count 75 K/uL (130-400); RDW Coefficient of Variation 13.9 % (11.5-14.5); RDW Standard Deviation 44.6 fL (36.4-46.3); Red Blood Count 2.56 M/uL (4.2-5.4); White Blood Count 9.64 K/uL (4.8-10.8)
[2020-08-08 07:10] LABS: Albumin Level 2.5 gm/dl (3.4-5.0); BUN Creatinine Ratio 16.8 (10-20); Calcium 8.9 mg/dl (8.5-10.1); Creatinine Clr Calc Pharmacy 65.9 ml/min; Est GFR (African American) 83.9; Est GFR (Non-African American) 72.4; Magnesium 1.7 mg/dl (1.8-2.4); Potassium 3.5 mmol/L (3.5-5.1)
[2020-08-08 07:12] LABS: Basophils # (auto) 0.01 K/uL (0-0.2); Basophils % (auto) 0.1 %; Hypogranular Neutrophils 1+; Lymphocytes # (auto) 1.48 K/uL (1.2-3.4); Lymphocytes % (auto) 15.4 %; Monocytes # (auto) 2.14 K/uL (0.11-0.59); Monocytes % (auto) 22.2 %; Neutrophils # (auto) 5.91 K/uL (1.4-6.5); Neutrophils % (auto) 61.3 %
[2020-08-08 07:15] LABS: Albumin Globulin Ratio 0.8 (0.9-2); Bilirubin,Total 0.8 mg/dl (0.2-1); Globulin 3.1 gm/dl (2.5-4.0); Phosphorus 4.4 mg/dl (2.5-4.9); Total Protein 5.6 gm/dl (6.4-8.2)
--- NOTE | 2020-08-08 08:09 | Anesthesiology Progress Note ---
Date of Service August 08, 2020 Anesthesia Post Procedure Vital Signs Vital Signs: Temp Pulse Pulse Pulse Resp BP BP 08/08/20 07:45 36.7 C 71 18 08/07/20 22:58 36.5 C 72 18 167/73 H 08/07/20 21:00 08/07/20 18:45 36.8 C 72 20 08/07/20 16:20 36.8 C 72 18 08/07/20 15:14 36.7 C 74 18 08/07/20 14:51 36.7 C 71 18 08/07/20 14:20 36.7 C 88 18 08/07/20 13:50 87 14 08/07/20 13:40 91 H 14 08/07/20 13:30 37.1 C 86 17 08/07/20 10:09 37 C 93 H 20 183/76 H 08/07/20 08:54 36.7 C 84 18 174/71 H 08/07/20 08:38 36.6 C 78 16 160/67 H BP Pulse Ox 08/08/20 07:45 169/76 H 96 08/07/20 22:58 94 08/07/20 21:00 168/88 H 08/07/20 18:45 187/78 H 92 08/07/20 16:20 177/85 H 92 08/07/20 15:14 192/79 H 94 08/07/20 14:51 186/77 H 94 08/07/20 14:20 150/71 H 91 08/07/20 13:50 139/75 97 08/07/20 13:40 144/72 H 98 08/07/20 13:30 170/95 H 98 08/07/20 10:09 93 08/07/20 08:54 08/07/20 08:38 92 Notes Mental Status: alert / awake / arousable and participated in evaluation Patient Amnestic to Procedure: Yes Nausea / Vomiting: adequately controlled Pain: adequately controlled Airway Patency, RR, SpO2: stable & adequate BP & HR: stable & adequate Hydration State: stable & adequate Anesthetic Complications: no major complications apparent
--- NOTE | 2020-08-08 08:10 | Progress Notes ---
DATE: 08/08/2020 DIAGNOSES: 1. Status post ORIF left ankle fracture dislocation. 2. Myelosuppression attributable to chemotherapeutic effect. 3. Limited stage small cell lung cancer. 4. Acute renal injury (resolved). 5. Hypoalbuminemia. SUBJECTIVE: The patient was seen and examined at bedside. She successfully underwent operative repair of her severely injured left ankle. Her counts are slowly starting to recover. She denies fevers, chills or other symptomatology overnight. I suspect at this point, she will head for rehabilitation assignment. The patient expressed concern about further delay in her treatment. Unfortunately, there will be small delay with the coronavirus outbreak. Once she gets to rehab, they will probably not allow her to come to appointments. She has received 4 cycles of chemotherapy so I feel confident that she has had adequate therapy to date and a short delay should not impact her prognosis overall. OBJECTIVE: GENERAL: A very pleasant 60-year-old female. Awake, alert and appropriate, in no acute distress. VITAL SIGNS: Temperature 36.5, pulse 72, respiratory rate 18, blood pressure 167/73. SKIN: Without rash or lesion. HEENT: Oral mucosa without erythema or ulceration. HEART: Regular rate and rhythm. No clicks, rubs, murmurs or gallops. LUNGS: Clear to auscultation bilaterally. ABDOMEN: Soft, nontender, nondistended. EXTREMITIES: No peripheral edema. NEUROLOGIC: Grossly intact. LABORATORY DATA: WBC count 9640, hemoglobin 7.9, platelet count 75,000. Sodium 135, potassium 3.5, chloride 97, carbon dioxide 29, creatinine 0.88, BUN 15. IMPRESSION: 1. Status post open reduction and internal fixation left ankle fracture dislocation. 2. Myelosuppression attributable to chemotherapeutic effect. 3. Limited stage small cell lung cancer. 4. Hypoalbuminemia. PLAN: The patient underwent her surgery yesterday, seems to be doing well. She reports no difficulties this morning. My assumption is she will go to rehabilitation for probably minimally 2 weeks. Patient has received 4 courses of total 6 of chemotherapy. Unfortunately, when she is in rehabilitation, she will not be allowed to return to [facility] because of coronavirus. Nonetheless, we will plan on getting her back online in regard to treatment as soon as possible. Perhaps, in the meantime, we can plan for scanning to check her progress moving forward. Her peripheral blood counts are finally heading towards baseline. No further intervention is necessary and we will officially sign off today. I promised the patient, we would not forget about her and we will get her back in the office as soon as possible to resume care. Thank you for allowing me to participate in her care.
[2020-08-08] MEDS: SUCRALFATE 1 GM/10 ML UDC PO SCH ×2 (08:17→10:57)
[2020-08-08] MEDS: FENOFIBRATE NANOCRYSTALLIZED 48 MG TABLET PO SCH (08:18)
[2020-08-08] MEDS: dilTIAZem HCL 240 MG CAPCR PO SCH (08:18)
[2020-08-08] MEDS: PANTOprazole 40 MG TAB PO SCH (08:19)
[2020-08-08] MEDS: MAGNESIUM SULFATE / D5W 1 GM/100 ML BAG IV SCH ×3 (08:25→12:50)
[2020-08-08] MEDS: POTASSIUM CHLORIDE / WTR 20 MEQ/100 ML PLCT IV SCH ×2 (08:26→10:51)
[2020-08-08] MEDS: bisacodyL 5 MG TABEC PO SCH (08:38)
--- NOTE | 2020-08-08 09:32 | Orthopedic Progress Note ---
Date of Service August 08, 2020 Assessment & Plan (1) Trimalleolar fracture of left ankle: POD 1 S/P ORIF L ankle fracture. Will order R LE knee high TEDS. DVT prophylaxis per medicine recommendations. R LE TEDS to be worn upon DC until f/u in 2wks. Can remove at night. Continue L LE elevation and ice for pain and swelling Pain medication per medicine service [facility]. Order for wheeled walker and knee scooter placed on chart for DC. Continue PT/OT. Plan for patient to follow-up with Ortho on 08-21 at 2pm. Patient aware. Admission and Anticipated Discharge Date Admission Date: July 30, 2020 Subjective Patient resting in bed. States left ankle pain overall controlled. Does feel a sense of pressure/rubbing at times to medial and latera ankle. Has been icing and elevating. She slept ok through the night. Appetite is still poor. Pt denies fever, SOB, chest pain, abd pain, n/v/c/d. She is hoping to go home once seen by medicine. Review of Systems Review of Systems: All systems reviewed & are unremarkable except as noted in HPI & below Physical Exam Physical Exam: Resting comfortably in bed. A and O x 3. L LE: Left leg elevated with pillow. AO splint donned and fitting appropriately. Left knee with trace effusion. Able to bend and straighten. Able to wiggle toes. Sensation intact. Brisk capillary refill. Minimal toe swelling. R LE: calf soft. NV intact R LE. 5/5 EHL, TA, gastroc. Neg homans. Results & Data ([facility]) Vital Signs (Past 12 Hours) Vital Signs Temp Pulse Resp BP BP Pulse Ox 08/08/20 07:45 36.7 C 71 18 169/76 H 96 08/07/20 22:58 36.5 C 72 18 167/73 H 94 Laboratory Results 08/08/20 08/08/20 Range/Units 06:06 06:06 WBC 9.64 (4.8-10.8) K/uL RBC 2.56 L (4.2-5.4) M/uL Hgb 7.9 L (12.0-16.0) g/dL Hct 22.2 L (37-47) % MCV 86.7 (80-100) fL MCH 30.9 (25-34) pg MCHC 35.6 (32-36) g/dL RDW Std Deviation 44.6 (36.4-46.3) fL RDW Coeff of Sebastián 13.9 (11.5-14.5) % Plt Count 75 L D (130-400) K/uL MPV 12.1 H (7.4-10.4) fL Immature Gran % (Auto) 1.0 % Neut % (Auto) 61.3 % Lymph % (Auto) 15.4 % Phelps % (Auto) 22.2 % Eos % (Auto) 0.0 % Baso % (Auto) 0.1 % Neut # (Auto) 5.91 (1.4-6.5) K/uL Lymph # (Auto) 1.48 (1.2-3.4) K/uL Phelps # (Auto) 2.14 H (0.11-0.59) K/uL Eos # (Auto) 0.00 (0-0.5) K/uL Baso # (Auto) 0.01 (0-0.2) K/uL Immature Gran # (Auto) 0.10 H (0.00-0.02) K/uL Hypogranular Neuts 1+ Sodium 135 L (136-145) mmol/L Potassium 3.5 (3.5-5.1) mmol/L Chloride 97 L (98-107) mmol/L Carbon Dioxide 29 (21-32) mmol/L Anion Gap 9.0 (3-11) BUN 15 (7-18) mg/dl Creatinine 0.88 (0.6-1.2) mg/dl Est Cr Clr Drug Dosing 65.9 ml/min Est GFR ( Amer) 83.9 Est GFR (Non-Af Amer) 72.4 BUN/Creatinine Ratio 16.8 (10-20) Glucose 115 H (70-99) mg/dl Calcium 8.9 (8.5-10.1) mg/dl Phosphorus 4.4 D (2.5-4.9) mg/dl Magnesium 1.7 L (1.8-2.4) mg/dl Total Bilirubin 0.8 (0.2-1) mg/dl AST 10 L (15-37) U/L ALT 11 L (12-78) U/L Alkaline Phosphatase 83 (45-117) U/L Total Protein 5.6 L (6.4-8.2) gm/dl Albumin 2.5 L (3.4-5.0) gm/dl Globulin 3.1 (2.5-4.0) gm/dl Albumin/Globulin Ratio 0.8 L (0.9-2) (1) Trimalleolar fracture of left ankle Encounter type: initial encounter Fracture type: closed Qualified Code(s): S82.852A - Displaced trimalleolar fracture of left lower leg, initial encounter for closed fracture
[2020-08-08] MEDS: PROCHLORPERAZINE MALEATE 10 MG TAB PO PRN (10:16)
[2020-08-08 12:11] VITALS: BP 117/71; TEMP 97.3; O2SAT 97
[2020-08-08 13:11] VITALS: PULSE 72
--- NOTE | 2020-08-08 16:00 | Discharge Summary ---
Date of Service August 08, 2020 Admission HPI Per Admitting Provider 60-year-old female PMHx of history of small cell lung carcinoma status post chemotherapy and radiation, dysphagia, HTN, HLD, depression, presents after a near syncopal episode without any LOC. She is walking from living room to kitchen when she went to sit down her left foot gave out from underneath her, and she went down to the ground. She heard the bones crunch, and was able to situate herself to elevate her leg until ambulance arrived. She was evaluated in the ER and found to have a left ankle fracture/dislocation and was evaluated by Dr. Lambert, and the ankle was reduced while in the ER. She was also noted to be hypokalemic, have elevated leukocytosis with WBC = 24.7, and have JOSE ANTONIO with elevated BUN = 40, creatinine = 2.38. Her appetite has been very poor recently due to esophagitis where she was recently hospitalized at the end of June. At that point time she was placed on PPI twice daily and Carafate, as well as diltiazem for esophageal spasm. Initially this regimen worked very well, but still reports having poor appetite and limited water intake due to pain and ulcers in her mouth. She has lost a total of 20 pounds since starting chemotherapy. She recently finished cycle 4 and has completed chemo. She was scheduled for PET scan as an outpatient this Friday, however likely will need to move this to later in the week pending her course here during this hospitalization. Her was present at bedside and supported the history. Principal Diagnosis Left ankle fracture Discharge Exam Constitutional WD/WN, vitals as above Eyes EOM intact bilaterally; no conjunctival abnormality ENMT external ear and nose normal, oropharynx normal Neck trachea midline, no thyromegaly normal visual inspection Respiratory normal respiratory effort, lungs clear to auscultation no respiratory distress Cardiovascular RRR, no murmur, no edema Gastrointestinal (Abdomen) Inspection/Auscultation: abdomen normal to inspection; abdomen not distended Musculoskeletal no cyanosis or clubbing, extremities motor strength 5/5 Skin no rashes, warm and dry Neurologic moves all extremities and awake Psychiatric Orientation: alert, oriented to person and cooperative Discharge Data Allergies Allergy/AdvReac Type Severity Reaction Status Date / Time lisinopril AdvReac Mild Cough Verified 07/30/20 16:23 Consultations 11/08/20 15:33 ED Decision to Admit Stat 07/30/20 18:31 Consult Case Management - Discharge Planning Routine Consult Oncology Routine Consult Orthopedic Surgery Routine 07/31/20 10:42 Consult Anesthesiology Routine Procedures Performed Operation Date: 08/02/20 07:15 <No data on this case meets the specified criteria> Operation Date: 08/03/20 07:00 <No data on this case meets the specified criteria> Operation Date: 08/07/20 11:30 Actual Procedures p Left Ankle Fracture Open Reduction Internal Fixation(Left) - Donnie Darlene Abdi MD Ordered Studies 07/30/20 15:18 CT ankle LT wo con Stat 08/07/20 11:30 FL ankle LT min 3V RTN Routine FL fluoroscopy <1hr Routine Hospital Course (1) Pancytopenia: Due to chemotherapy. - Patient has required 3 units of platelets apheresis, third unit on 08/04. - Patient has required 3 units of PRBC; most recently on 08/05. - Patient received Neupogen on 08/04 & 08/05 to help improve leukopenia. This is improving; now WBC up to 3.2. - Surgery has been postponed until Friday, hopefully numbers are better. - Electrolytes repleted. Still not eating much due to the pain when eating. However, she very much wanted to go home. On the day of discharge, she was able to tolerate enough PO to manage her fluid and nutritional needs. The patient elected to go home. (2) Trimalleolar fracture of left ankle: Evaluated by Dr. Lambert in the ER, reduced. - To the OR on 08/07 with ORIF of left ankle. NO weight-bearing x 2 weeks, then likely just toe-touch. The patient was able to obtain a scooter and worked with PT/OT. Providers did offer/recommend rehab, but she did not want to go to rehab and elected to go home. I emphasized several times the importance of being safe at home, and she felt strongly that she could be safe at home and would follow orthopedic recommendations. (3) Near syncope: Likely orthostatic from dehydration. - Echo neg for acute issues, EF 50-55%, neg for structural issues. (4) Small cell lung cancer: Originally diagnosed March 2020, involving left upper lobe mass next to mediastinum, stage IIIa T3, N2, M0. Bilateral solid pulmonary nodules, s/p XRT finished 06/30/2020 and chemotherapy, completed cisplatin and etoposide treatment. - Last chemotherapy cycle 4 on 07/18/2020. - Recently underwent EGD on 07/07 found to have severe radiation esophagitis and esophageal spasms, was discharged on twice daily PPI and Carafate, diltiazem for esophageal spasms and nitro as needed for chest pain at home. - Follows with Dr. Lance as outpatient - Will get repeat PET scan this week. (5) Esophagitis: On EGD. - Continue BID PPI and Carafate - Magic mouthwash PRN for pain, swish and swallow as needed (6) Hypertension: BP is 135/70. - Continue diltiazem 240 mg daily - for esophageal spasm as above (7) Hypercholesterolemia: - Continue atorvastatin 10 mg (8) Depression: - History noted (9) Restless leg syndrome: - Noted- currently stable (10) DVT prophylaxis: SCDs - High risk, but presently plts < 50k, so hold Lovenox. Total Time Total Time Spent Total Time Spent (In Minutes): 35 Discharge Plan Discharge Items Patient Disposition: Home - Home Health Services Reason For Visit: NEAR SYNCOPE,L ANKLE FRACTURE,HYPOKALEMIA,LEUKOCYT Discharge Diagnosis: Ankle fracture Activity: Resume your previous activity Weightbearing: Left non-weightbearing Weightbearing Comment: No pressure on the left foot until seen by orthopedics - 2 weeks minimum. Non-emergency contact: Primary Care Provider and Surgeon Call non-emergency contact if: your symptoms worsen and your pain is worsening Follow-up/Referrals: Jane Ortiz DO [Primary Care Provider] - 08/14/20 8:20 am (You have a follow up appt on FridayAug 14 at 0820am. Please arrive 15 minutes prior to your appt. It is important that you keep this appt, if it does not fit your schedule, please call [phone] and reschedule. ) Emy Harris P.A.-C. [Physician Supervisor Harvesting] - 08/21/20 2:00 pm (For splint and staple removal. Please call the office if you need to change appointment date/time) Diet: Regular Addtl Attending Provider Instructions: Please follow up with Dr. Abdi in the office at the above visit. 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 Can be removed at night. *Pain medication per medicine service. *Follow up with [facility], Layla Harris PA-c on 08-21 at 2pm. *Please call the office at [phone] with any questions or concerns. Pending Studies at Discharge: No Stand-Alone Forms: My [facility] [employer] Smoking Cessation Medications and DC Order Prescriptions: New oxycodone-acetaminophen 5-325 mg tablet 1 tab PO Q6H PRN (Reason: pain) Qty: 20 RF: 0 Continued sucralfate [Carafate] 1 gram tablet 1 g PO Q6H Qty: 120 RF: 4 hydrocodone-acetaminophen 7.5-325 mg/15 mL solution 15 ml PO Q6H PRN (Reason: esophagitis) Qty: 473 RF: 0 atorvastatin 10 mg tablet 10 mg PO HS Qty: 30 RF: 0 pantoprazole 40 mg tablet,delayed release (DR/EC) 40 mg PO BID Qty: 60 RF: 2 fenofibrate nanocrystallized 48 mg tablet 48 mg PO QAM Qty: 90 RF: 1 ondansetron HCl 8 mg tablet 8 mg PO DAILY PRN (Reason: Nausea) RF: 0 prochlorperazine maleate 10 mg tablet 10 mg PO Q6H PRN (Reason: Nausea) RF: 0 nitroglycerin [Nitrostat] 0.4 mg Tablet, Sublingual 0.4 mg sublingual Q3H PRN (Reason: Epigastric pain) Qty: 20 RF: 0 diltiazem HCl [Tiadylt ER] 240 mg capsule,extended release 24 hr 240 mg PO DAILY Qty: 30 RF: 0 Discharge Orders: Discharge Order (Routine); Ordered 08/08/20 Ordered By: Marky Ardon Admission Data Admit Date/Time: 07/30/20 16:17 Attending Provider: Marky Ardon Admit Provider: Aida Smith Primary Care Provider: Jane Ortiz Other Providers: Marky Ardon ; Aida Smith ; Lucio Olmos V. ; Joselito Lambert ; Sander Vanessa Other Interventions: Discharge Summary Assessment (RN) Last Done: 08/08/20 13:09 Coding Level of Care Code D/C Day Management >30 mins Diagnoses Pancytopenia D61.818 Trimalleolar fracture of left ankle S82.852A Encounter type: initial encounter Fracture type: closed Near syncope R55 Small cell lung cancer C34.90 Esophagitis K20.90 Hypertension I10 Hypercholesterolemia E78.00 Depression F32.9 Restless leg syndrome G25.81 DVT prophylaxis Z29.9
== END 2020-08-08 15:42 | disposition home health service (06) | DRG 492 ==
LOC: ED 14:01 → 2W 16:17 → SUATTDRO 16:17 → 2W 17:48

== ENCOUNTER 2020-08-14 14:52 | Inpatient (IN) ==
--- NOTE | 2020-08-14 17:26 | Emergency Department Note ---
Impression & Plan Hypomagnesemia, Small cell lung cancer, Hypokalemia, Anemia, Nausea ED Provider Note NAME: NELLY PAINTER AGE: 60 SEX: F ARRIVES VIA: Walk-In INFORMANT: Patient, ED PROVIDER(S): Rajesh Palacios MD CHIEF COMPLAINT: Weak, nausea, anemia, low potassium and magnesium PLAN: Disposition: Admit MEDICAL DECISION MAKING: The patient is a pleasant 60-year-old woman with a past medical history of lung cancer recently completed her last chemotherapy several weeks ago with subsequent admission 2 weeks ago for left ankle fracture where she did receive blood transfusion with a discharge hemoglobin of 7.9 who presents emergency department referred from cancer center after being evaluated with blood work for nausea that is been ongoing for several weeks but was worse in the past several days. She understands a center to emergency department for evaluation and blood transfusion because she understands that her blood counts cannot stay stable. However her hemoglobin today at 1330 was 7.7 which is likely the same value as her discharge hemoglobin given statistical variability. However, she did have significant electrolyte abnormalities including potassium of 2.6 and a magnesium of 1.1. We did discuss options admission versus electrolyte repletion and discharge and ultimately she acknowledged that she feels too weak and has not been improving her oral intake and would be agreeable for admission. She denies any fevers, chills, cough, congestion, dizziness, known COVID-19 exposures. On arrival the patient is fatigued appearing but no acute distress, afebrile stable vital signs. She appears clinically dry. Her abdomen is benign. EKG without overt acute ischemia. Chest x-ray negative for acute cardiopulmonary process. Blood work was added to patient's earlier lab draw and troponin was 0.017, with a normal limits. Lipase within normal limits. Direct bilirubin unremarkable at 0.4. POC Covid19 Ag screen negative. Case was discussed with Dr. Valadez, [facility] hospitalist, who will evaluate the patient for admission. Triage Nursing notes reviewed and agree them. Prior medical records reviewed including outpatient blood work from 1316 today. Vital Signs: reviewed and remarkable for no significant abnormalities Differential diagnosis: Gastroenteritis, food borne illness, infections, appendicitis, diverticulitis, inflammatory bowel disease, obstruction, GI bleed, biliary pathology, volvulus, as well as other pathologies. ER treatment provided: See below. Diagnostics interpreted by me: ECG: Normal sinus rhythm, 75 bpm, no ectopy, no overt ST elevation or depression, QTC 448, QRS 92. Cardiac Monitoring: An order for continuous cardiac monitoring was placed and demonstrated Normal sinus rhythm, 75 bpm, no ectopy Laboratory studies: See below Imaging studies: SINGLE VIEW CHEST CLINICAL HISTORY: Nausea. Atypical chest pain. Lung cancer. FINDINGS: An AP, portable, upright chest radiograph is compared to study dated 07/30/2020. Correlation is made with chest CT dated 07/06/2020. A left subclavian central venous infusion port is in place. The cardiomediastinal silhouette is unremarkable. Emphysema and chronic interstitial thickening is similar to previous. There is no airspace consolidation or pleural effusion. The patient's left upper lobe lung lesion seen by CT is not well-visualized by x-ray. No pneumothorax is seen. The skeletal structures are osteopenic. The bony thorax is grossly intact. IMPRESSION: Emphysematous change with no acute cardiopulmonary abnormality. Consultation(s): Case was discussed with Dr. Valadez, [facility] hospitalist, who will evaluate the patient for admission. HPI: The patient is a pleasant 60-year-old woman with a past medical history of lung cancer recently completed her last chemotherapy several weeks ago with subsequent admission 2 weeks ago for left ankle fracture where she did receive blood transfusion with a discharge hemoglobin of 7.9 who presents emergency department referred from cancer center after being evaluated with blood work for nausea that is been ongoing for several weeks but was worse in the past several days. She understands a center to emergency department for evaluation and blood transfusion because she understands that her blood counts cannot stay stable. However her hemoglobin today at 1330 was 7.7 which is likely the same value as her discharge hemoglobin given statistical variability. However, she did have significant electrolyte abnormalities including potassium of 2.6 and a magnesium of 1.1. We did discuss options admission versus electrolyte repletion and discharge and ultimately she acknowledged that she feels too weak and has not been improving her oral intake and would be agreeable for admission. She has any fevers, chills, cough, congestion, dizziness, known COVID-19 exposures. ROS: See above HPI for pertinent positives & negatives. A total of 10 systems reviewed and were otherwise negative. PAST MEDICAL HISTORY:See Below PAST SURGICAL HISTORY:See Below FAMILY HISTORY:See Below SOCIAL HISTORY:See Below HOME MEDICATIONS:See Below ALLERGIES:See Below VITALS:See Below PHYSICAL EXAMINATION: GENERAL: Awake, alert, fatigued/chronically ill-appearing, in no distress HENT: Normocephalic, atraumatic. Oropharynx with dry mucous membranes and otherwise unremarkable. EYES: Normal conjunctiva. Sclera non-icteric. NECK: Supple. No nuchal rigidity. FROM. No JVD. RESPIRATORY: Clear to auscultation. CARDIAC: Regular rate, normal rhythm. Extremities warm and well perfused. Pulses equal. ABDOMEN: Soft, non-distended. No tenderness to palpation. No rebound or guarding. No masses. RECTAL: Deferred. MUSCULOSKELETAL: Chest examination reveals no tenderness. The back is symmetrical on inspection without obvious abnormality. There is no CVA tenderness to palpation. No joint edema. LOWER EXTREMITIES: Calves are equal size bilaterally and non-tender. No edema. No discoloration. NEURO: Normal sensorium. No sensory or motor deficits noted. SKIN: No rash or jaundice noted. Rajesh Palacios MD Past Med/Surg History Medical History Arthritis Bilat Knees & lower back Depression GERD (gastroesophageal reflux disease) Hypercholesterolemia Hypertension Restless leg syndrome Small cell lung cancer (04/21/20) Surgical History H/O arthroscopic knee surgery 1998 RIGHT/ 2010 LEFT H/O tubal ligation 1991 H/O: section x2 1987 & 1982 History of bronchoscopy (04/21/20) 04/21/2020 - with positive biopsy History of excision of pilonidal cyst 1987 History of tooth extraction molars Port-A-Cath in place (05/25/20) Insertion of Mediport Left Subclavian with Fluoroscopy Dr. Ramos 05/25/2020 S/P ankle joint replacement S/P LEFT ANKLE FX OPEN REDUCTION AND INTERNAL FIXATION 08/02/2020 S/P carpal tunnel release 1989's / 2014 LEFT S/P tonsillectomy Age 4 Family History Mother , Passed age 64 of pancreatic cancer Hypertension Cancer Father Hearing loss Grandmother (Maternal) , Passed age 79 of Stomach Cancer No problems noted. Uncle , Passed in 80's of Colorectal Cancer No problems noted. Brother No problems noted. Brother No problems noted. Sister No problems noted. Grandfather (Maternal) , Passed age 89 of Bladder Cancer No problems noted. Son No problems noted. Daughter No problems noted. Grandmother Cancer Grandfather Cancer Other No family history of allergies No family history of bleeding disorder Denies family history of Ovarian cancer Heart disease Breast cancer Lung cancer Asthma Social History Smoking Status: Former smoker Tobacco Type: Cigarettes Age Started Using Tobacco: 20; Age Quit Using Tobacco: 60; packs per day: 1; Years Smoked: 40; Second Hand Exposure: No; Hx Alcohol Use: No Hx Substance Use: No Preferred Language: Swedish Communication Ability: Effective Visual Impairment: No Limitations Hearing Ability: Normal Supply Person Required: No Beliefs That Will Affect Care: None marital status: Current Living Situation: Spouse current occupational status: employed 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 How many Children do You have: 2 Other Information That Helps Us Care for You: No Feels Safe at Home: Yes Safety Concerns: Feels Safe At This Time Childhood Exposure to Second-Hand Smoke: Yes caffeine: Yes (ice tea) during the past year weight has: remained stable Dental Care, Regularly: Yes Physical Activity Frequency: Does not Exercise Seatbelt Use: always Sunscreen Use: No Assistive Devices: Glasses and Walker Allergies Allergies Allergy/AdvReac Type Severity Reaction Status Date / Time lisinopril AdvReac Mild Cough Verified 08/14/20 19:12 Home Meds Home Medications Medication Instructions Recorded Confirmed prochlorperazine maleate 10 mg PO Q6H PRN 05/29/20 08/14/20 amlodipine 10 mg PO DAILY 08/14/20 08/14/20 hydrocodone-acetaminophen 15 ml PO Q6H PRN 08/14/20 08/14/20 metoclopramide HCl 10 mg PO ACHS 08/14/20 08/14/20 ondansetron 8 mg PO Q8H PRN 08/14/20 08/14/20 oxycodone-acetaminophen 1 tab PO Q6H PRN 08/14/20 08/14/20 Previous Rx's Medication Instructions Recorded fenofibrate nanocrystallized 48 mg 48 mg PO QAM #90 tab 06/13/20 tablet diltiazem HCl [Tiadylt ER] 240 mg PO DAILY #30 cap 07/09/20 nitroglycerin [Nitrostat] 0.4 mg SUBLINGUAL Q3H PRN #20 tab 07/09/20 atorvastatin 10 mg tablet 10 mg PO HS #30 tab 07/21/20 pantoprazole 40 mg tablet,delayed 40 mg PO BID #60 tab 07/21/20 release Results & Data (ED) Vital Signs Vital Signs - 24 hr 08/14/20 15:19 08/14/20 18:00 Temperature 36.8 C Temperature Source Oral Pulse Rate 90 70 Pulse Rate from SpO2 Sensor 70 Respiratory Rate 20 17 Respiratory Effort / Characteristics Non-Labored Respiratory Depth Normal Blood Pressure 150/81 H 153/66 H Blood Pressure Mean 104 82 Pulse Oximetry 94 96 Oxygen Delivery Method Room Air Sepsis Recent Fever Within 48 Hours No Sepsis New/Unexplained Change in Mental Status N/A Sepsis Action Taken by Nursing No Action Required Laboratory Data Attestation: I reviewed the patient's lab results. Lab Results 08/14/20 Range/Units 17:53 Direct Bilirubin 0.4 H (0-0.2) mg/dl Troponin I 0.017 (0-0.045) ng/ml Lipase 93 (73-393) U/L Administered Medications Al Hydrox/Mg Hydrox/Simethicone (Aluminum/Magnesium Susp 30 Ml Udc) 15 ml PO Q4H PRN PRN Reason: Dyspepsia Stop: 09/13/20 21:58 Last Admin: 08/14/20 22:55 Dose: 15 ml Documented by: [id number] Atorvastatin Calcium (Atorvastatin 10 Mg Tab) 10 mg PO HS DELANEY Stop: 09/13/20 21:58 Last Admin: 08/14/20 22:49 Dose: 10 mg Documented by: [id number] Melatonin (Melatonin 3 Mg Tab) 3 mg PO HS PRN PRN Reason: Sleep Stop: 09/13/20 22:23 Last Admin: 08/14/20 22:49 Dose: 3 mg Documented by: [id number] Metoclopramide HCl (Metoclopramide Hcl 10 Mg Tablet) 10 mg PO ACHS DELANEY Stop: 09/13/20 21:58 Last Admin: 08/14/20 22:49 Dose: 10 mg Documented by: [id number] Ondansetron HCl (Ondansetron Inj 2 Mg/Ml 2 Ml Vial) 4 mg IV Q6H PRN PRN Reason: Nausea Stop: 12/23/20 21:58 Last Admin: 08/14/20 22:28 Dose: 4 mg Documented by: [id number] Pantoprazole Sodium (Pantoprazole 40 Mg Tab) 40 mg PO BID DELANEY Stop: 09/13/20 21:58 Last Admin: 08/14/20 22:49 Dose: 40 mg Documented by: [id number] Discontinued Medications Diphenhydramine HCl (Diphenhydramine 50 Mg/Ml Vial) 25 mg IV NOW STA Stop: 08/14/20 17:47 Last Admin: 08/14/20 18:04 Dose: 25 mg Documented by: [id number] Famotidine (Pepcid 20mg Iv Push) 20 mg in 5 mls @ 2.5 mls/min IV NOW STA Stop: 08/14/20 17:46 Last Admin: 08/14/20 18:04 Dose: 2.5 mls/min Documented by: [id number] Potassium Chloride (K Jimi / Wtr) 20 meq in 100 mls @ 50 mls/hr IV ONE ONE Stop: 08/14/20 19:44 Last Infusion: 08/14/20 20:30 Dose: 0 mls/hr Documented by: [id number] Admin: 08/14/20 18:23 Dose: 50 mls/hr Documented by: [id number] Magnesium Sulfate/Dextrose (Magnesium Sulfate / D5w) 1 gm in 100 mls @ 200 mls/hr IV Q30M DELANEY Stop: 08/14/20 18:45 Last Infusion: 08/14/20 19:27 Dose: 0 mls/hr Documented by: [id number] Admin: 08/14/20 18:40 Dose: 200 mls/hr Documented by: [id number] Infusion: 08/14/20 18:34 Dose: 0 mls/hr Documented by: [id number] Admin: 08/14/20 18:04 Dose: 200 mls/hr Documented by: [id number] Sodium Chloride (Nss 1000ml) 1,000 mls @ 999 mls/hr IV .Q1H1M ONE Stop: 08/14/20 18:46 Last Infusion: 08/14/20 19:27 Dose: 0 mls/hr Documented by: [id number] Admin: 08/14/20 18:04 Dose: 999 mls/hr Documented by: [id number] Potassium Chloride (K Jimi / Wtr) 20 meq in 100 mls @ 50 mls/hr IV ONE ONE Stop: 08/14/20 20:36 Last Infusion: 08/14/20 23:53 Dose: 0 mls/hr Documented by: [id number] Admin: 08/14/20 21:12 Dose: 50 mls/hr Documented by: [id number] Metoclopramide HCl (Metoclopramide Hcl Inj 5 Mg/Ml 2 Ml Vial) 10 mg IV NOW STA Stop: 08/14/20 17:47 Last Admin: 08/14/20 18:04 Dose: 10 mg Documented by: [id number] Discharge Plan Visit Data Chief Complaint: Nausea Stated Complaint: NAUSEA ED Provider: Rajesh Palacios Discharge Problem: Hypomagnesemia, Small cell lung cancer, Hypokalemia, Anemia, Nausea Patient Disposition: Admitted As Inpatient Discharge Instructions Interventions: ED Discharge Assessment Last Done: 08/14/20 21:09
[2020-08-14] MEDS ORDERED: FAMOTIDINE 20MG IV PUSH 20 MG/5 ML SYR IV STA (17:45)
[2020-08-14] MEDS ORDERED: POTASSIUM CHLORIDE / WTR 20 MEQ/100 ML PLCT IV ONE ×2 (17:45→18:37)
[2020-08-14] MEDS ORDERED: SODIUM CHLORIDE 0.9% 1000ML 1,000 ML IV ONE (17:46)
[2020-08-14] MEDS ORDERED: diphenhydrAMINE 50 MG/ML VIAL IV STA (17:46)
[2020-08-14] MEDS ORDERED: METOCLOPRAMIDE HCL INJ 5 MG/ML 2 ML VIAL IV STA (17:46)
[2020-08-14] MEDS: MAGNESIUM SULFATE / D5W 1 GM/100 ML BAG IV SCH ×2 (18:04→18:40)
[2020-08-14 18:24] LABS: Bilirubin Direct 0.4 mg/dl (0-0.2); Troponin I 0.017 ng/ml (0-0.045)
--- NOTE | 2020-08-14 18:32 | History & Physical Report ---
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 Unfortunately Carafate has not previously been helpful. Continue pantoprazole 40mg PO BID and will add famotidine 20mg IV BID Consult GI for consideration of repeat EGD +/- barium swallow. Consider MRI brain w+wo contrast although no other focal neurology to suggest brain metastatic disease and prior MRI in March without metastatic disease and still have esophagitis symptoms appears to be much more likely etiology. Metoclopramide 10mg PO ACHS Ondansetron 4mf q4h IV PRN (2) Odynophagia: As above (3) Esophagitis: Suspected radiation esophagitis from prior EGD PPI + H2 vinayak, GI consult as above. (4) Hypokalemia: Suspected due to poor oral intake. K 2.6. KCL 50 meq IV given in ER. Continue replacement with IV NSS+ 40 meq KCl @ 100 ml/hr (5) Hypomagnesemia: Suspected due to poor oral intake. Mg 1.1. Mg sulphate 2g IV given in ER. Repeat with AM labs. (6) Anemia: Appears to be asymptomatic from this. Close to her baseline although not improved with cessation of chemotherapy. S/P 3 units PRBCs on last admission. Will get AM labs with iron studies, B12, folate and retic count. Transfuse if H gb < 7 overnight but otherwise will discuss need for transfusion with heme/onc in AM. (7) Small cell lung cancer: Currently on a break from chemotherapy and radiation. (8) DVT prophylaxis: Chemical prophylaxis deferred pending GI/anemia workup as possible GI bleed. SCDs History of Present Illness Chief Complaint: Poor oral intake, intractable nausea and vomiting Primary Care Provider: DO Lori Brothers is a 60 year old female with small cell lung cancer who presents to the ER with intractable nausea and vomiting with poor oral intake causing hypokalemia and hypomagnesemia. She is currently finished with radiation therapy since 06/30/2020 and chemotherapy on 07/27/20. Despite finishing chemoradiation she has continued to feel significantly nauseous with very poor oral intake. The sight/smell of food makes her feel nauseous but she also feels food getting stuck in her mid esophagus and comes right back up - this occurs with both solid and liquid food equally. She denies taking any pain medication therefore does not think this is causing her symptoms. She was having issues with constipation but has been given Senokot for the last three days by her oncologist and had a decent bowel movement yesterday. Metoclopramide has helped her the most with her nausea and vomiting. In June she was hospitalized for severe chest pain suspected secondary to radiation esophagitis and esophageal spasms. At that time she was started on pantoprazole 40mg PO BID and Carafate. She notes the Carafate would not go down and has not taken this since discharge from hospital. She also tried nitroglycerin but says that made her feel "weird". She was started on diltiazem in addition at this time to help. She was again hospitalized from July 30- due to near syncopal episode and left ankle fracture but required three units PRBCs and 4 units platelet transfusions. Suspected due to myelosuppression at that time from chemotherapy. She followed up with oncology earlier today and labs taken concerning for potassium 2.6, magnesium 1.1 in setting of ongoing poor oral intake. She also remains anemic despite her platelets recovering although she denies any melena or bright red blood in stool. Allergies Allergy/AdvReac Type Severity Reaction Status Date / Time lisinopril AdvReac Mild Cough Verified 08/14/20 19:12 Home Medications Medication Instructions Recorded Confirmed Type prochlorperazine maleate 10 mg PO Q6H PRN 05/29/20 08/14/20 History fenofibrate nanocrystallized 48 mg 48 mg PO QAM #90 tab 06/13/20 08/14/20 Rx tablet diltiazem HCl [Tiadylt ER] 240 mg PO DAILY #30 cap 07/09/20 08/14/20 Rx nitroglycerin [Nitrostat] 0.4 mg SUBLINGUAL Q3H PRN #20 tab 07/09/20 08/14/20 Rx atorvastatin 10 mg tablet 10 mg PO HS #30 tab 07/21/20 08/14/20 Rx pantoprazole 40 mg tablet,delayed 40 mg PO BID #60 tab 07/21/20 08/14/20 Rx release amlodipine 10 mg PO DAILY 08/14/20 08/14/20 History hydrocodone-acetaminophen 15 ml PO Q6H PRN 08/14/20 08/14/20 History metoclopramide HCl 10 mg PO ACHS 08/14/20 08/14/20 History ondansetron 8 mg PO Q8H PRN 08/14/20 08/14/20 History oxycodone-acetaminophen 1 tab PO Q6H PRN 08/14/20 08/14/20 History Past Med/Surg History Medical History Arthritis Bilat Knees & lower back Depression GERD (gastroesophageal reflux disease) Hypercholesterolemia Hypertension Restless leg syndrome Small cell lung cancer (04/21/20) Surgical History H/O arthroscopic knee surgery 1998 RIGHT/ 2010 LEFT H/O tubal ligation 1991 H/O: section x2 1987 & 1982 History of bronchoscopy (04/21/20) 04/21/2020 - with positive biopsy History of excision of pilonidal cyst 1987 History of tooth extraction molars Port-A-Cath in place (05/25/20) Insertion of Mediport Left Subclavian with Fluoroscopy Dr. Ramos 05/25/2020 S/P ankle joint replacement S/P LEFT ANKLE FX OPEN REDUCTION AND INTERNAL FIXATION 08/02/2020 S/P carpal tunnel release 1989's 2014 LEFT S/P tonsillectomy Age 4 Family History Mother , Passed age 64 of pancreatic cancer Hypertension Cancer Father Hearing loss Grandmother (Maternal) , Passed age 79 of Stomach Cancer No problems noted. Uncle , Passed in 80's of Colorectal Cancer No problems noted. Brother No problems noted. Brother No problems noted. Sister No problems noted. Grandfather (Maternal) , Passed age 89 of Bladder Cancer No problems noted. Son No problems noted. Daughter No problems noted. Grandmother Cancer Grandfather Cancer Other No family history of allergies No family history of bleeding disorder Denies family history of Ovarian cancer Heart disease Breast cancer Lung cancer Asthma Social History Smoking Status: Former smoker Tobacco Type: Cigarettes Age Started Using Tobacco: 20; Age Quit Using Tobacco: 60; packs per day: 1; Years Smoked: 40; Second Hand Exposure: No; Hx Alcohol Use: No Hx Substance Use: No Preferred Language: Icelandic Communication Ability: Effective Visual Impairment: No Limitations Hearing Ability: Normal Senior Mobile Solutions Architect Required: No Beliefs That Will Affect Care: None marital status: Current Living Situation: Spouse current occupational status: employed 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 How many Children do You have: 2 Other Information That Helps Us Care for You: No Feels Safe at Home: Yes Safety Concerns: Feels Safe At This Time Childhood Exposure to Second-Hand Smoke: Yes caffeine: Yes (ice tea) during the past year weight has: remained stable Dental Care, Regularly: Yes Physical Activity Frequency: Does not Exercise Seatbelt Use: always Sunscreen Use: No Assistive Devices: Oxygen - Continuous Review of Systems Review of Systems: All systems reviewed & are unremarkable except as noted in HPI & below Constitutional: + fatigue; no fever and no chills Respiratory: no cough Gastrointestinal: + early satiety and + heartburn; no abdominal pain Physical Exam Constitutional: well developed; + not well nourished and no acute distress Eyes: + anicteric sclerae; normal pupil size Neck: trachea midline Respiratory: normal respiratory effort Auscultation: + wheezes (expiratory on left only); no crackles, no rales and no rhonchi Cardiovascular: RRR, no murmur, no edema Gastrointestinal (Abdomen): Inspection/Auscultation: normal bowel sounds Percussion/Palpation: abdomen soft; abdomen nontender, no guarding and abdomen not rigid Musculoskeletal: no cyanosis or clubbing, extremities motor strength 5/5 Skin: no rashes, warm and dry Neurologic: moves all extremities and awake; not confused Psychiatric: A+Ox3, euthymic affect Results & Data Results & Data ([facility]) Vital Signs (Past 12 Hours) Vital Signs Temp Pulse Resp BP Pulse Ox 08/14/20 18:00 70 17 153/66 H 96 08/14/20 15:19 36.8 C 90 20 150/81 H 94 Diagnostic Findings SINGLE VIEW CHEST IMPRESSION: Emphysematous change with no acute cardiopulmonary abnormality. Medications Administered ER Medications given: KCl 40 meq IV Famotidine 20mg IV NSS 1L bolus Metoclopramide 10mg IV Diphenhydramine 25mg IV Code Status & VTE Plan Code Status Full VTE Prophylaxis Plan VTE Prophylaxis will be ordered: Yes Reason for no VTE drug order: Contraindicated PG Care Time/CCT Total # of Minutes Spent Total Time Spent with Patient: Total time spent is greater than 50% in c oordination of care (as documented) at patient's floor/unit and/or counseling patient: Coding Level of Care Code 43529 Initial Inpt Care Lvl 3 Diagnoses Intractable nausea and vomiting R11.2 Odynophagia R13.10 Esophagitis K20.90 Hypokalemia E87.6 Hypomagnesemia E83.42 Anemia D64.9 Small cell lung cancer C34.90 DVT prophylaxis Z29.9
--- NOTE | 2020-08-14 18:58 | XRay Report ---
SINGLE VIEW CHEST CLINICAL HISTORY: Nausea. Atypical chest pain. Lung cancer. FINDINGS: An AP, portable, upright chest radiograph is compared to study dated 07/30/2020. Correlation is made with chest CT dated 07/06/2020. A left subclavian central venous infusion port is in place. The cardiomediastinal silhouette is unremarkable. Emphysema and chronic interstitial thickening is si milar to previous. There is no airspace consolidation or pleural effusion. The patient's left upper l obe lung lesion seen by CT is not well-visualized by x-ray. No pneumothorax is seen. The skeletal str uctures are osteopenic. The bony thorax is grossly intact. IMPRESSION: Emphysematous change with no acute cardiopulmonary abnormality. ACT 112: Negative or not required by law. Electronically signed by: Bennett Petersen M.D. 08/14/2020 6:57 PM
[2020-08-14] MEDS ORDERED: ONDANSETRON INJ 2 MG/ML 2 ML VIAL IV PRN (21:59)
[2020-08-14] MEDS ORDERED: ACETAMINOPHEN 325 MG TAB PO PRN (21:59)
[2020-08-14] MEDS ORDERED: POLYETHYLENE (MIRALAX) 17 GM PACK PO PRN (21:59)
[2020-08-14] MEDS ORDERED: NITROGLYCERIN SL 0.4 MG/TAB TAB SL PRN (21:59)
[2020-08-14] MEDS ORDERED: METOCLOPRAMIDE HCL 10 MG TABLET PO SCH (21:59)
[2020-08-14] MEDS ORDERED: MELATONIN 3 MG TAB PO PRN (22:24)
[2020-08-14] MEDS: ATORVASTATIN 10 MG TAB PO SCH (22:49)
[2020-08-14] MEDS: PANTOprazole 40 MG TAB PO SCH (22:49)
[2020-08-14] MEDS: METOCLOPRAMIDE HCL 10 MG TABLET PO SCH (22:49)
[2020-08-14] MEDS: ALUMINUM/MAGNESIUM SUSP 30 ML UDC PO PRN (22:55)
[2020-08-15] MEDS ORDERED: PROCHLORPERAZINE 10 MG in SYRINGE 8 ML IV ONE (02:00)
[2020-08-15] MEDS: POTASSIUM CHLORIDE 40 MEQ in SODIUM CHLORIDE 0.9% 1000ML 1,000 ML IV SCH (04:02)
[2020-08-15 07:25] LABS: Hemoglobin 6.3 g/dL (12.0-16.0); Mean Corpuscular Hemoglobin 30.4 pg (25-34); Mean Corpuscular Hgb Conc 33.2 g/dL (32-36); Mean Corpuscular Volume 91.8 fL (80-100); Mean Platelet Volume 9.6 fL (7.4-10.4); Nucleated RBC # (auto) 0.04 K/uL (0-0); Nucleated RBC % (auto) 0.5 %; Platelet Count 336 K/uL (130-400); RDW Coefficient of Variation 14.5 % (11.5-14.5); RDW Standard Deviation 46.7 fL (36.4-46.3); Red Blood Count 2.07 M/uL (4.2-5.4); White Blood Count 7.94 K/uL (4.8-10.8)
[2020-08-15 07:43] LABS: Basophils # (auto) 0.04 K/uL (0-0.2); Basophils % (auto) 0.5 %; Eosinophils # (auto) 0.01 K/uL (0-0.5); Eosinophils % (auto) 0.1 %; Immature Granulocytes # (auto) 0.61 K/uL (0.00-0.02); Immature Granulocytes % (auto) 7.7 %; Lymphocytes # (auto) 1.71 K/uL (1.2-3.4); Lymphocytes % (auto) 21.5 %; Monocytes # (auto) 0.16 K/uL (0.11-0.59); Neutrophils # (auto) 5.41 K/uL (1.4-6.5); Neutrophils % (auto) 68.2 %; Polychromasia 1+; Reticulocyte % 4.3 % (0.5-2.0); Reticulocytes # 0.09 10^6/uL (0.02-0.10); Spherocytes 1+
[2020-08-15 07:58] LABS: Albumin Level 2.4 gm/dl (3.4-5.0); BUN Creatinine Ratio 11.4 (10-20); Calcium 7.7 mg/dl (8.5-10.1); Creatinine Clr Calc Pharmacy 90.5 ml/min; Est GFR (African American) 115.2; Est GFR (Non-African American) 99.4; Magnesium 1.4 mg/dl (1.8-2.4); Potassium 2.8 mmol/L (3.5-5.1)
[2020-08-15 08:01] LABS: Albumin Globulin Ratio 0.8 (0.9-2); Bilirubin,Total 1.1 mg/dl (0.2-1); Ferritin 1419.9 ng/ml (8-388); Phosphorus 2.5 mg/dl (2.5-4.9); Total Protein 5.4 gm/dl (6.4-8.2)
[2020-08-15 08:23] LABS: Vitamin B12 > 2000 pg/ml (193-986)
[2020-08-15] MEDS: METOCLOPRAMIDE HCL 10 MG TABLET PO SCH ×4 (08:56→20:52)
[2020-08-15] MEDS: FAMOTIDINE 20 MG in SYRINGE 3 ML IV SCH ×2 (08:56→20:42)
[2020-08-15] MEDS: PANTOprazole 40 MG TAB PO SCH ×2 (08:57→20:52)
[2020-08-15] MEDS: dilTIAZem HCL 240 MG CAPCR PO SCH (08:57)
[2020-08-15] MEDS ORDERED: amLODIPine BESYLATE 5 MG TAB PO SCH (09:00)
[2020-08-15] MEDS: ONDANSETRON INJ 2 MG/ML 2 ML VIAL IV PRN ×2 (09:02→20:45)
[2020-08-15] MEDS: POTASSIUM CHLORIDE CRTAB 20 MEQ TABCR PO SCH ×3 (09:46→20:52)
[2020-08-15] MEDS: MAGNESIUM SULFATE / D5W 1 GM/100 ML BAG IV SCH ×3 (09:47→12:35)
[2020-08-15] MEDS: POTASSIUM CHLORIDE / WTR 10 MEQ/100 ML PLCT IV SCH ×3 (09:48→12:29)
--- NOTE | 2020-08-15 10:33 | Gastrointestinal Consultation ---
Date of Consultation August 15, 2020 Assessment & Plan (1) Intractable nausea and vomiting: (2) Esophageal ulcer: (3) Esophagitis: 1. Recommend continued Pantoprazole 40 mg and Famotidine 20 mg IV BID. 2. Continue Zofran 4 mg IV every 4 hours. 3. Continue Reglan 10 mg ACHS. 4. Add Phenergan 25 mg every 6 hours as needed for nausea. If not tolerating PO, can give AK. 5. Low utility of repeat EGD in the setting of known esophagitis. Plan to repeat EGD as scheduled in 2 months. 6. If those measures fail to improve her N/V, she could be considered for IV Emend. 7. Continue supportive care. Thank you for allowing us to participate in the care of this pleasant patient. If you have any questions or concerns, please do not hesitate to contact us. Supervising Physician Co-Signing Physician Notes I personally evaluated the patient and agree with the findings as documented by VALE Ly Exam: abd: soft, nt, nd History of Present Illness Reason for Consultation: Intractable nausea with vomiting Requesting Physician: Dr. Valadez Attending Physician: Mo Hall History of Present Illness Patient is a pleasant 60 year-old female with a history of non small cell lung cancer recently undergoing both chemo and radiation treatments (last chemotherapy 07/27/2020) admitted with intractable nausea with vomiting that has been persisting since May of this year. She did have an upper endoscopy by Dr. Wall in mid June for symptoms of nausea with vomiting, chest pain and painful swallowing. 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 Since that time, she has been taking Carafate and PPI therapy but her nausea and vomiting are persisting. She also reports occasional painful swallowing which she associates with esophageal spasms. Patient has been having difficulty tolerate oral intake and has sustained an approximate 20 pound weight loss since starting her treatment. On admission, she has been started on BID PPI and initiated on Famotidine 20 mg BID as well. She is also prescribed Reglan 10 mg ACHS and Zofran 4 mg every 4 hours as needed. Despite this, she reports ongoing nausea but has not had any vomiting since admission. GI has been consulted to discuss utility of of repeat EGD. Allergies Allergy/AdvReac Type Severity Reaction Status Date / Time lisinopril AdvReac Mild Cough Verified 08/14/20 19:12 Home Medications Medication Instructions Recorded Confirmed Type prochlorperazine maleate 10 mg PO Q6H PRN 05/29/20 08/14/20 History fenofibrate nanocrystallized 48 mg 48 mg PO QAM #90 tab 06/13/20 08/14/20 Rx tablet diltiazem HCl [Tiadylt ER] 240 mg PO DAILY #30 cap 07/09/20 08/14/20 Rx nitroglycerin [Nitrostat] 0.4 mg SUBLINGUAL Q3H PRN #20 tab 07/09/20 08/14/20 Rx atorvastatin 10 mg tablet 10 mg PO HS #30 tab 07/21/20 08/14/20 Rx pantoprazole 40 mg tablet,delayed 40 mg PO BID #60 tab 07/21/20 08/14/20 Rx release amlodipine 10 mg PO DAILY 08/14/20 08/14/20 History hydrocodone-acetaminophen 15 ml PO Q6H PRN 08/14/20 08/14/20 History metoclopramide HCl 10 mg PO ACHS 08/14/20 08/14/20 History ondansetron 8 mg PO Q8H PRN 08/14/20 08/14/20 History oxycodone-acetaminophen 1 tab PO Q6H PRN 08/14/20 08/14/20 History Patient History Medical History Arthritis Bilat Knees & lower back Depression GERD (gastroesophageal reflux disease) Hypercholesterolemia Hypertension Restless leg syndrome Small cell lung cancer (04/21/20) Surgical History H/O arthroscopic knee surgery 1998 RIGHT/ 2010 LEFT H/O tubal ligation 1991 H/O: section x2 1987 & 1982 History of bronchoscopy (04/21/20) 04/21/2020 - with positive biopsy History of excision of pilonidal cyst 1987 History of tooth extraction molars Port-A-Cath in place (05/25/20) Insertion of Mediport Left Subclavian with Fluoroscopy Dr. Ramos 05/25/2020 S/P ankle joint replacement S/P LEFT ANKLE FX OPEN REDUCTION AND INTERNAL FIXATION 08/02/2020 S/P carpal tunnel release 1989' RT / 2015 LEFT S/P tonsillectomy Age 4 Family History Mother , Passed age 64 of pancreatic cancer Hypertension Cancer Father Hearing loss Grandmother (Maternal) , Passed age 79 of Stomach Cancer No problems noted. Uncle , Passed in 80's of Colorectal Cancer No problems noted. Brother No problems noted. Brother No problems noted. Sister No problems noted. Grandfather (Maternal) , Passed age 89 of Bladder Cancer No problems noted. Son No problems noted. Daughter No problems noted. Grandmother Cancer Grandfather Cancer Other No family history of allergies No family history of bleeding disorder Denies family history of Ovarian cancer Heart disease Breast cancer Lung cancer Asthma Social History Tobacco Type: Cigarettes Age Started Using Tobacco: 20; Age Quit Using Tobacco: 60; packs per day: 1; Years Smoked: 40; Second Hand Exposure: No; Hx Alcohol Use: No Hx Substance Use: No Preferred Language: Ivorian Communication Ability: Effective Visual Impairment: No Limitations Hearing Ability: Normal Communications Manager Required: No Beliefs That Will Affect Care: None marital status: Current Living Situation: Spouse current occupational status: employed 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 How many Children do You have: 2 Other Information That Helps Us Care for You: No Feels Safe at Home: Yes Safety Concerns: Feels Safe At This Time Childhood Exposure to Second-Hand Smoke: Yes caffeine: Yes (ice tea) during the past year weight has: remained stable Dental Care, Regularly: Yes Physical Activity Frequency: Does not Exercise Seatbelt Use: always Sunscreen Use: No Assistive Devices: Oxygen - Continuous Review of Systems Review of Systems: All systems reviewed & are unremarkable except as noted in HPI & below Physical Exam Constitutional: WD/WN, vitals as above Eyes: EOM intact bilaterally Neck: normal visual inspection Respiratory: normal respiratory effort, lungs clear to auscultation Cardiovascular: Rate/Rhythm: regular rate and regular rhythm Gastrointestinal (Abdomen): normal bowel sounds, soft, nontender, no hepatosplenomegaly Musculoskeletal: Extremities: extremities normal to inspection Skin: no rashes, warm and dry Psychiatric: A+Ox3, euthymic affect Results & Data ([facility]) Vital Signs (Past 12 Hours) Vital Signs Temp Pulse Pulse Resp BP BP Pulse Ox 08/15/20 07:15 36.5 C 84 18 171/80 H 95 08/15/20 03:53 36.9 C 84 22 168/73 H 98 08/15/20 03:11 37 C 80 18 169/73 H 95 08/15/20 01:45 81 08/14/20 23:00 36.7 C 83 18 154/74 H 94 Laboratory Results Abnormal lab results 08/14/20 08/15/20 08/15/20 Range/Units 17:53 07:05 07:05 RBC 2.07 L (4.2-5.4) M/uL Hgb 6.3 L* (12.0-16.0) g/dL Hct 19.0 L* (37-47) % RDW Std Deviation 46.7 H (36.4-46.3) fL Reticulocyte % (Auto) 4.3 H (0.5-2.0) % Immature Gran # (Auto) 0.61 H (0.00-0.02) K/uL Absolute Nucleated RBC 0.04 H (0-0) K/uL Potassium 2.8 L (3.5-5.1) mmol/L Calcium 7.7 L (8.5-10.1) mg/dl Magnesium 1.4 L (1.8-2.4) mg/dl Transferrin 101 L (200-360) mg/dl Ferritin 1419.9 H (8-388) ng/ml Total Bilirubin 1.1 H (0.2-1) mg/dl Direct Bilirubin 0.4 H (0-0.2) mg/dl AST 9 L (15-37) U/L ALT 10 L (12-78) U/L Total Protein 5.4 L (6.4-8.2) gm/dl Albumin 2.4 L (3.4-5.0) gm/dl Albumin/Globulin Ratio 0.8 L (0.9-2) Vitamin B12 (193-986) pg/ml 08/15/20 Range/Units 07:05 RBC (4.2-5.4) M/uL Hgb (12.0-16.0) g/dL Hct (37-47) % RDW Std Deviation (36.4-46.3) fL Reticulocyte % (Auto) (0.5-2.0) % Immature Gran # (Auto) (0.00-0.02) K/uL Absolute Nucleated RBC (0-0) K/uL Potassium (3.5-5.1) mmol/L Calcium (8.5-10.1) mg/dl Magnesium (1.8-2.4) mg/dl Transferrin (200-360) mg/dl Ferritin (8-388) ng/ml Total Bilirubin (0.2-1) mg/dl Direct Bilirubin (0-0.2) mg/dl AST (15-37) U/L ALT (12-78) U/L Total Protein (6.4-8.2) gm/dl Albumin (3.4-5.0) gm/dl Albumin/Globulin Ratio (0.9-2) Vitamin B12 > 2000 H (193-986) pg/ml PG Care Time/CCT Total # of Minutes Spent Total Time Spent with Patient: Total time spent is greater than 50% in coordination of care (as documented) at patient's floor/unit and/or counseling patient: Coding Level of Care Code 82549 Office/OBS Consult Lvl 4 Diagnoses Intractable nausea and vomiting R11.2 Esophageal ulcer K22.10 Esophagitis K20.90
[2020-08-15] MEDS ORDERED: PROMETHAZINE HCL 25 MG TAB PO PRN (10:43)
[2020-08-15] MEDS ORDERED: PROMETHAZINE HCL 12.5 MG in SODIUM CHLORIDE 0.9% 50 ML IV PRN (10:55)
[2020-08-15] MEDS ORDERED: SODIUM CHLORIDE 0.9% 250 ML IV PRN ×2 (10:55→11:21)
[2020-08-15] MEDS ORDERED: LIDOCAINE HCL VISCOUS SOLN 2% 15 ML UDC MT PRN (10:55)
--- NOTE | 2020-08-15 10:58 | Hospitalist Progress Note ---
Date of Service August 15, 2020 Assessment & Plan (1) Radiation esophagitis: Dx 06/2020 on EGD by [facility]. Has been ongoing issue for weeks with failure to thrive and weight loss - severe. Cont PPI. Cont H2 vinayak. Cont reglan 10mg ac/hs. Cont zofran prn. Cont carafate LIQUID 1gm AC/HS. CANNOT TOLERATE carafate tablets. NEEDS THE LIQUID AT DISCHARGE FOR BEST CHANCE OF SUCCESS. Ongoing weight loss and failure to thrive likely to occur without carafate liquid. Appreciate GI consult. Can start clears if desired by patient. (2) Intractable nausea and vomiting: likely due to radiation esophagitis. check cortisol level in am to r/o elizabeth's as cause of refractory GI symptoms. see above in "radiation esophagitis." (3) Hypokalemia: Suspected due to poor oral intake and vomiting. Cont IV supplementation & PO supplementation. Replace low mag. Repeat K/mag in am. (4) Hypomagnesemia: Due to poor oral intake as well as vomiting. IV mag supplementation. Repeat mag level am. (5) Anemia: Likely 2nd to her cancer. Blood draws, recent ankle surgery, etc also contribute to anemia. S/P 3 units PRBCs on last admission. Fe studies c/w ACD. B12/folate wnl. Tx 2 units PRBCs today. Repeat cbc am. (6) Small cell lung cancer: Currently on a break from chemotherapy and radiation. PET scan done just before admission. Will review. (7) Trimalleolar fracture of left ankle: s/p ORIF by Dr Abdi - 08/07/20. 25-OH vit D level earlier this month low 20s. supplement vitamin D at discharge. f/u Dr Abdi post-d/c. needs DVT proph - high risk DVT due to recent surgery and her cancer. lovenox 40mg daily. (8) Hypertension: Cont home meds (9) Wheezing: emphysema changes on cxr. previous heavy smoker. COPD?? start albuterol 2 puffs qid scheduled. (10) Severe protein-calorie malnutrition: 2nd to lung cancer. supplements by surgical device sales representative. MVI. at least 12 kg of weight loss this fall alone. (11) DVT prophylaxis: lovenox daily updated by phone today extensively Admission and Anticipated Discharge Date Admission Date: August 14, 2020 Subjective patient with multiple complaints including nausea, emesis, odynophagia, dysphagia, cough with wheezing, fatigue, poor appetite. denies fever/chills. she states "I just want to feel better." hasn't been able to eat/drink normally for several weeks. reports she was unable to take the carafate tabs at home - too large to swallow and would not go down. she tried crushing the carafate tab to make it into a slurry and simply could not ingest it. she stated "It went down and came right back up." denies any mouth pain. denies dyspnea at rest. Review of Systems Constitutional: + fatigue and + anorexia; no fever, no chills and no body aches Respiratory: + cough and + wheezing Cardiovascular: no chest pain Gastrointestinal: + nausea, + vomiting and + dysphagia; no abdominal pain and no diarrhea/loose stools Genitourinary: no dysuria Psychiatric: + anxiety Physical Exam Constitutional: no acute distress and no altered mental status ENMT: Mouth: + dry oral mucous membranes (no thrush seen ) Respiratory: no respiratory distress Auscultation: + wheezes (b/l, end- exp); no crackles Cardiovascular: Rate/Rhythm: regular rate and regular rhythm Heart Sounds: normal S1, normal S2 and + murmur (1/6 LSB, systolic) Vessels: posterior tibial pulses present and dorsalis pedis pulses present; no JVD Extremities: no edema Gastrointestinal (Abdomen): normal bowel sounds, soft, nontender, no hepatosplenomegaly Musculoskeletal: left ankle in splint extending from foot to just below left knee Skin: + pallor (severe ) Psychiatric: Orientation: alert and oriented x 3 Results & Data Results & Data ([facility]) Vital Signs (Past 12 Hours) Vital Signs Temp Pulse Pulse Resp BP BP Pulse Ox 08/15/20 07:30 62 08/15/20 07:15 36.5 C 84 18 171/80 H 95 08/15/20 03:53 36.9 C 84 22 168/73 H 98 08/15/20 03:11 37 C 80 18 169/73 H 95 08/15/20 01:45 81 08/14/20 23:00 36.7 C 83 18 154/74 H 94 Laboratory Results Laboratory Results - last 24 hr 08/14/20 08/14/20 08/15/20 17:53 Unknown 07:05 WBC 7.94 RBC 2.07 L Hgb 6.3 L* Hct 19.0 L* MCV 91.8 MCH 30.4 MCHC 33.2 RDW Std Deviation 46.7 H RDW Coeff of Sebastián 14.5 Plt Count 336 MPV 9.6 Immature Gran % (Auto) 7.7 Neut % (Auto) 68.2 Lymph % (Auto) 21.5 [place] % (Auto) 2.0 Eos % (Auto) 0.1 Baso % (Auto) 0.5 Reticulocyte % (Auto) 4.3 H Neut # (Auto) 5.41 Lymph # (Auto) 1.71 [place] # (Auto) 0.16 Eos # (Auto) 0.01 Baso # (Auto) 0.04 Reticulocyte # 0.09 Immature Gran # (Auto) 0.61 H Absolute Nucleated RBC 0.04 H Nucleated RBC % (auto) 0.5 Polychromasia 1+ Spherocytes 1+ Sodium Potassium Chloride Carbon Dioxide Anion Gap BUN Creatinine Est Cr Clr Drug Dosing Est GFR ( Amer) Est GFR (Non-Af Amer) BUN/Creatinine Ratio Glucose Calcium Phosphorus Magnesium Iron Transferrin Transferrin % Sat Ferritin Total Bilirubin Direct Bilirubin 0.4 H AST ALT Alkaline Phosphatase Troponin I 0.017 Total Protein Albumin Globulin Albumin/Globulin Ratio Lipase 93 Vitamin B12 Folate SARS-CoV-2 Ag (Rapid) Negative Blood Type Antibody Screen 08/15/20 08/15/20 08/15/20 07:05 07:05 07:05 WBC RBC Hgb Hct MCV MCH MCHC RDW Std Deviation RDW Coeff of Sebastián Plt Count MPV Immature Gran % (Auto) Neut % (Auto) Lymph % (Auto) [place] % (Auto) Eos % (Auto) Baso % (Auto) Reticulocyte % (Auto) Neut # (Auto) Lymph # (Auto) [place] # (Auto) Eos # (Auto) Baso # (Auto) Reticulocyte # Immature Gran # (Auto) Absolute Nucleated RBC Nucleated RBC % (auto) Polychromasia Spherocytes Sodium 136 Potassium 2.8 L Chloride 99 Carbon Dioxide 28 Anion Gap 9.0 BUN 7 Creatinine 0.62 Est Cr Clr Drug Dosing 90.5 Est GFR ( Amer) 115.2 Est GFR (Non-Af Amer) 99.4 BUN/Creatinine Ratio 11.4 Glucose 80 Calcium 7.7 L Phosphorus 2.5 Magnesium 1.4 L Iron 42 Transferrin 101 L Transferrin % Sat 29 Ferritin 1419.9 H Total Bilirubin 1.1 H Direct Bilirubin AST 9 L ALT 10 L Alkaline Phosphatase 78 Troponin I Total Protein 5.4 L Albumin 2.4 L Globulin 3.0 Albumin/Globulin Ratio 0.8 L Lipase Vitamin B12 > 2000 H Folate 10.70 SARS-CoV-2 Ag (Rapid) Blood Type B Positive Antibody Screen NEGATIVE PG Care Time/CCT Total # of Minutes Spent Total Time Spent with Patient: Total time spent is greater than 50% in coordination of care (as documented) at patient's floor/unit and/or counseling patient: Coding Level of Care Code 60007 Subseq Hosp Care Lvl 3 Diagnoses Radiation esophagitis K20.80; T66.XXXA Intractable nausea and vomiting R11.2 Hypokalemia E87.6 Hypomagnesemia E83.42 Anemia D64.9 Anemia type: unspecified type Small cell lung cancer C34.90 Trimalleolar fracture of left ankle S82.852A Encounter type: initial encounter Fracture type: closed Hypertension I10 Hypertension type: essential hypertension Wheezing R06.2 Severe protein-calorie malnutrition E43 DVT prophylaxis Z29.9 (1) Anemia Anemia type: unspecified type Qualified Code(s): D64.9 - Anemia, unspecified (2) Trimalleolar fracture of left ankle Encounter type: initial encounter Fracture type: closed Qualified Code(s): S82.852A - Displaced trimalleolar fracture of left lower leg, initial encounter for closed fracture (3) Hypertension Hypertension type: essential hypertension Qualified Code(s): I10 - Essential (primary) hypertension
[2020-08-15] MEDS: SUCRALFATE 1 GM/10 ML UDC PO SCH ×3 (12:05→20:51)
[2020-08-15] MEDS: ALBUTEROL HFA 8 GM INHALER INH SCH ×2 (14:14→20:32)
[2020-08-15] MEDS: ALUMINUM/MAGNESIUM SUSP 30 ML UDC PO PRN (14:37)
[2020-08-15] MEDS: ATORVASTATIN 10 MG TAB PO SCH (20:52)
[2020-08-16] MEDS: ALBUTEROL HFA 8 GM INHALER INH SCH ×4 (00:12→19:39)
[2020-08-16] MEDS: ONDANSETRON INJ 2 MG/ML 2 ML VIAL IV PRN ×2 (01:43→15:29)
[2020-08-16] MEDS: POTASSIUM CHLORIDE 40 MEQ in SODIUM CHLORIDE 0.9% 1000ML 1,000 ML IV SCH ×2 (01:47→12:00)
[2020-08-16] MEDS ORDERED: Nursing to Pharmacy Communication SCH (02:15)
[2020-08-16] MEDS: SUCRALFATE 1 GM/10 ML UDC PO SCH ×4 (08:27→20:00)
[2020-08-16] MEDS: METOCLOPRAMIDE HCL 10 MG TABLET PO SCH ×4 (08:27→20:00)
[2020-08-16] MEDS: dilTIAZem HCL 240 MG CAPCR PO SCH (08:28)
[2020-08-16] MEDS: POTASSIUM CHLORIDE CRTAB 20 MEQ TABCR PO SCH ×2 (08:28→13:35)
[2020-08-16] MEDS: PANTOprazole 40 MG TAB PO SCH ×2 (08:28→20:00)
[2020-08-16 09:41] LABS: Hematocrit (blood only) 27.5 % (37-47); Hemoglobin 9.2 g/dL (12.0-16.0); Mean Corpuscular Hemoglobin 29.5 pg (25-34); Mean Corpuscular Hgb Conc 33.5 g/dL (32-36); Mean Corpuscular Volume 88.1 fL (80-100); Mean Platelet Volume 9.8 fL (7.4-10.4); Nucleated RBC # (auto) 0.05 K/uL (0-0); Nucleated RBC % (auto) 0.7 %; Platelet Count 317 K/uL (130-400); RDW Coefficient of Variation 15.3 % (11.5-14.5); RDW Standard Deviation 48.9 fL (36.4-46.3); Red Blood Count 3.12 M/uL (4.2-5.4); White Blood Count 8.08 K/uL (4.8-10.8)
[2020-08-16] MEDS: FAMOTIDINE 20 MG in SYRINGE 3 ML IV SCH (09:49)
[2020-08-16 09:58] LABS: Basophils # (auto) 0.04 K/uL (0-0.2); Basophils % (auto) 0.5 %; Immature Granulocytes # (auto) 0.49 K/uL (0.00-0.02); Immature Granulocytes % (auto) 6.1 %; Lymphocytes # (auto) 1.27 K/uL (1.2-3.4); Lymphocytes % (auto) 15.7 %; Monocytes # (auto) 0.45 K/uL (0.11-0.59); Monocytes % (auto) 5.6 %; Neutrophils # (auto) 5.83 K/uL (1.4-6.5); Neutrophils % (auto) 72.1 %
--- NOTE | 2020-08-16 10:00 | Gastroenterology Progress Note ---
Date of Service August 16, 2020 Assessment & Plan (1) Intractable nausea and vomiting: (2) Esophageal ulcer: (3) Esophagitis: 1. Recommend continued Pantoprazole 40 mg and Famotidine 20 mg BID . 2. Continue Zofran 4 mg IV every 6-8 hours. 3. Continue Phenergan 25 mg every 6 hours as needed for nausea. 4. Stable for discharge from GI standpoint. 5. Outpatient EGD as scheduled. Thank you for allowing us to participate in the care of this pleasant patient. If you have any questions or concerns, please do not hesitate to contact us. Admission and Anticipated Discharge Date Admission Date: August 14, 2020 Supervising Physician Co-Signing Physician Notes I personally evaluated the patient and agree with the findings as documented by VALE Ly Exam: abd: soft, nt, nd Subjective Lori states nausea has significantly improved with addition of Phenergan. She is tolerating soft diet. She verbalizes desire to go home today. Review of Systems Review of Systems: All systems reviewed & are unremarkable except as noted in HPI & below Physical Exam Constitutional: WD/WN, vitals as above well developed and well nourished Eyes: EOM intact bilaterally Neck: normal visual inspection Respiratory: normal respiratory effort Gastrointestinal (Abdomen): Inspection/Auscultation: abdomen normal to inspection Musculoskeletal: Extremities: extremities normal to inspection Psychiatric: A+Ox3, euthymic affect Results & Data Results & Data ([facility]) Vital Signs (Past 12 Hours) Vital Signs Temp Pulse Pulse Resp BP Pulse Ox 08/16/20 07:41 73 18 92 08/16/20 07:28 36.6 C 71 172/72 H 93 08/16/20 03:35 36.7 C 55 L 16 156/78 H 94 08/16/20 02:58 90 08/15/20 23:12 36.7 C 83 18 156/65 H 95 Laboratory Results Abnormal lab results 08/15/20 08/16/20 Range/Units 07:05 09:19 RBC 3.12 L (4.2-5.4) M/uL Hgb 9.2 L (12.0-16.0) g/dL Hct 27.5 L (37-47) % RDW Std Deviation 48.9 H (36.4-46.3) fL RDW Coeff of Sebastián 15.3 H (11.5-14.5) % Absolute Nucleated RBC 0.05 H (0-0) K/uL Crossmatch See Detail PG Care Time/CCT Total # of Minutes Spent Total Time Spent with Patient: Total time spent is greater than 50% in coordination of care (as documented) at patient's floor/unit and/or counseling patient: Coding Level of Care Code 74993 Subseq Hosp Care Lvl 3 Diagnoses Intractable nausea and vomiting R11.2 Esophageal ulcer K22.10 Esophagitis K20.90
[2020-08-16 10:03] LABS: Albumin Level 2.8 gm/dl (3.4-5.0); BUN Creatinine Ratio 7.2 (10-20); Calcium 8.2 mg/dl (8.5-10.1); Creatinine Clr Calc Pharmacy 93.7 ml/min; Est GFR (African American) 115.8; Est GFR (Non-African American) 99.9; Magnesium 1.7 mg/dl (1.8-2.4); Potassium 3.6 mmol/L (3.5-5.1)
[2020-08-16 10:04] LABS: BUN Creatinine Ratio 7.3 (10-20); Calcium 8.2 mg/dl (8.5-10.1); Creatinine Clr Calc Pharmacy 90.7 ml/min; Est GFR (African American) 114.6; Est GFR (Non-African American) 98.9; Magnesium 1.6 mg/dl (1.8-2.4); Phosphorus 2.5 mg/dl (2.5-4.9); Potassium 3.6 mmol/L (3.5-5.1)
[2020-08-16 10:18] LABS: Bilirubin,Total 0.8 mg/dl (0.2-1); Globulin 2.9 gm/dl (2.5-4.0); Phosphorus 2.4 mg/dl (2.5-4.9); Total Protein 5.7 gm/dl (6.4-8.2)
[2020-08-16] MEDS: MAGNESIUM SULFATE / D5W 1 GM/100 ML BAG IV SCH ×3 (11:08→15:41)
[2020-08-16] MEDS ORDERED: ONDANSETRON 4 MG OD TAB PO PRN (17:30)
[2020-08-16] MEDS ORDERED: PROMETHAZINE HCL 25 MG SUPP PR PRN (17:30)
--- NOTE | 2020-08-16 17:31 | Hospitalist Progress Note ---
Date of Service August 16, 2020 Assessment & Plan (1) Radiation esophagitis: Dx 06/2020 on EGD by [facility]. Has been ongoing issue for weeks with failure to thrive and weight loss - severe. Modestly improved today. Cont PPI. Cont reglan 10mg ac/hs. Cont zofran prn. Make oral. Cont carafate LIQUID 1gm AC/HS. CANNOT TOLERATE carafate tablets. NEEDS THE LIQUID AT DISCHARGE FOR BEST CHANCE OF SUCCESS. Ongoing weight loss and failure to thrive likely to occur without carafate liquid. Appreciate GI consult. Cont clears. (2) Intractable nausea and vomiting: likely due to radiation esophagitis. check cortisol level in am to r/o elizabeth's as cause of refractory GI symptoms. see above in "radiation esophagitis." (3) Hypokalemia: Resolved after copious replacement. (4) Hypomagnesemia: Due to poor oral intake as well as vomiting. IV mag supplementation once again today. Repeat mag level am; repeat K in am. (5) Anemia: Likely 2nd to her cancer. Blood draws, recent ankle surgery, etc also contribute to anemia. S/P 3 units PRBCs on last admission. Fe studies c/w ACD. B12/folate wnl. s/p 2 units PRBCs yesterday with nice H/H response. Repeat cbc am. (6) Small cell lung cancer: Currently on a break from chemotherapy and radiation. PET scan done just before admission. Will review and give results to pt before d/c. (7) Trimalleolar fracture of left ankle: s/p ORIF by Dr Abdi - 08/07/20. 25-OH vit D level earlier this month low 20s. supplement vitamin D at discharge. f/u Dr Abdi post-d/c. needs DVT proph - high risk DVT due to recent surgery and her cancer. lovenox 40mg daily. (8) Hypertension: Cont home meds (9) Wheezing: emphysema changes on cxr. previous heavy smoker. suspect she has element of COPD. cont albuterol 2 puffs qid scheduled. (10) Severe protein-calorie malnutrition: 2nd to lung cancer. 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 MVI. at least 12 kg of weight loss this fall alone. (11) DVT prophylaxis: lovenox daily updated by phone today again tonight hopefully can d/c home in am Admission and Anticipated Discharge Date Admission Date: August 14, 2020 Subjective patient feeling much better. able to tolerate clears, broth, etc without nausea, emesis or abd pain. asking for d/c home. she is incredibly happy with her progress. dysphagia/odynophagia better w/ carafate liquid. she cannot swallow carafate tabs - they get stuck, or she vomits. wheezing improved with inhaler. mild cough. no dyspnea. updated pt's by phone. Review of Systems Constitutional: no fever and no chills Respiratory: + cough and + wheezing Cardiovascular: no chest pain Gastrointestinal: no abdominal pain, no nausea and no vomiting Physical Exam Constitutional: no acute distress and no altered mental status looks much better today ENMT: Mouth: no oral mucosal abnormality and oral mucous membranes not dry Respiratory: no respiratory distress Auscultation: + wheezes (b/l, end- exp); no crackles Cardiovascular: Rate/Rhythm: regular rate and regular rhythm Heart Sounds: normal S1, normal S2 and + murmur (1/6 LSB, systolic) Vessels: posterior tibial pulses present and dorsalis pedis pulses present; no JVD Extremities: no edema Gastrointestinal (Abdomen): normal bowel sounds, soft, nontender, no hepatosplenomegaly Musculoskeletal: left lower leg/ankle/foot in splint Skin: + pallor (improved today) Psychiatric: Orientation: alert and oriented x 3 Results & Data Results & Data ([facility]) Vital Signs (Past 12 Hours) Vital Signs Temp Pulse Pulse Resp BP BP Pulse Ox 08/16/20 15:00 36.6 C 81 18 165/80 H 92 08/16/20 13:31 80 18 94 08/16/20 11:00 36.5 C 76 18 177/77 H 93 08/16/20 07:41 73 18 92 08/16/20 07:28 36.6 C 71 172/72 H 93 08/16/20 07:00 63 Laboratory Results Laboratory Results - last 24 hr 08/15/20 08/16/20 08/16/20 07:05 09:19 09:19 WBC 8.08 RBC 3.12 L Hgb 9.2 L Hct 27.5 L MCV 88.1 MCH 29.5 MCHC 33.5 RDW Std Deviation 48.9 H RDW Coeff of Sebastián 15.3 H Plt Count 317 MPV 9.8 Immature Gran % (Auto) 6.1 Neut % (Auto) 72.1 Lymph % (Auto) 15.7 [place] % (Auto) 5.6 Eos % (Auto) 0.0 Baso % (Auto) 0.5 Neut # (Auto) 5.83 Lymph # (Auto) 1.27 [place] # (Auto) 0.45 Eos # (Auto) 0.00 Baso # (Auto) 0.04 Immature Gran # (Auto) 0.49 H Absolute Nucleated RBC 0.05 H Nucleated RBC % (auto) 0.7 Sodium 136 Potassium 3.6 D Chloride 101 Carbon Dioxide 29 Anion Gap 6.0 BUN 4 L Creatinine 0.61 Est Cr Clr Drug Dosing 93.7 Est GFR ( Amer) 115.8 Est GFR (Non-Af Amer) 99.9 BUN/Creatinine Ratio 7.2 L Glucose 99 Calcium 8.2 L Phosphorus 2.4 L Magnesium 1.7 L Total Bilirubin 0.8 AST 12 L ALT 11 L Alkaline Phosphatase 84 Total Protein 5.7 L Albumin 2.8 L Globulin 2.9 Albumin/Globulin Ratio 1.0 Crossmatch See Detail 08/16/20 09:19 WBC RBC Hgb Hct MCV MCH MCHC RDW Std Deviation RDW Coeff of Sebastián Plt Count MPV Immature Gran % (Auto) Neut % (Auto) Lymph % (Auto) [place] % (Auto) Eos % (Auto) Baso % (Auto) Neut # (Auto) Lymph # (Auto) [place] # (Auto) Eos # (Auto) Baso # (Auto) Immature Gran # (Auto) Absolute Nucleated RBC Nucleated RBC % (auto) Sodium 135 L Potassium 3.6 Chloride 101 Carbon Dioxide 30 Anion Gap 4.0 BUN 5 L Creatinine 0.63 Est Cr Clr Drug Dosing 90.7 Est GFR ( Amer) 114.6 Est GFR (Non-Af Amer) 98.9 BUN/Creatinine Ratio 7.3 L Glucose 99 Calcium 8.2 L Phosphorus 2.5 Magnesium 1.6 L Total Bilirubin AST ALT Alkaline Phosphatase Total Protein Albumin Globulin Albumin/Globulin Ratio Crossmatch PG Care Time/CCT Total # of Minutes Spent Total Time Spent with Patient: Total time spent is greater than 50% in coordination of care (as documented) at patient's floor/unit and/or counseling patient: Coding Level of Care Code 03602 Subseq Hosp Care Lv 2 Diagnoses Radiation esophagitis K20.80; T66.XXXA Intractable nausea and vomiting R11.2 Hypokalemia E87.6 Hypomagnesemia E83.42 Anemia D64.9 Small cell lung cancer C34.90 Trimalleolar fracture of left ankle S82.852A Encounter type: initial encounter Fracture type: closed Hypertension I10 Hypertension type: essential hypertension Wheezing R06.2 Severe protein-calorie malnutrition E43 DVT prophylaxis Z29.9 (1) Trimalleolar fracture of left ankle Encounter type: initial encounter Fracture type: closed Qualified Code(s): S82.852A - Displaced trimalleolar fracture of left lower leg, initial encounter for closed fracture (2) Hypertension Hypertension type: essential hypertension Qualified Code(s): I10 - Essential (primary) hypertension
[2020-08-16] MEDS: HEPARIN 100 UNIT/ML 5ML FLUSH FLUSH PRN (17:46)
[2020-08-16] MEDS ORDERED: ENOXAPARIN INJ 40 MG/0.4 ML SYR SQ ONE (23:12)
[2020-08-17] MEDS: ALBUTEROL HFA 8 GM INHALER INH SCH ×3 (00:02→13:35)
[2020-08-17 08:00] LABS: Hematocrit (blood only) 28.1 % (37-47); Hemoglobin 9.6 g/dL (12.0-16.0); Mean Corpuscular Hemoglobin 29.8 pg (25-34); Mean Corpuscular Hgb Conc 34.2 g/dL (32-36); Mean Corpuscular Volume 87.3 fL (80-100); Mean Platelet Volume 9.5 fL (7.4-10.4); Nucleated RBC # (auto) 0.04 K/uL (0-0); Nucleated RBC % (auto) 0.3 %; Platelet Count 359 K/uL (130-400); RDW Coefficient of Variation 15.2 % (11.5-14.5); RDW Standard Deviation 47.6 fL (36.4-46.3); Red Blood Count 3.22 M/uL (4.2-5.4); White Blood Count 10.68 K/uL (4.8-10.8)
[2020-08-17] MEDS: METOCLOPRAMIDE HCL 10 MG TABLET PO SCH ×2 (08:21→11:34)
[2020-08-17] MEDS: SUCRALFATE 1 GM/10 ML UDC PO SCH ×2 (08:21→12:50)
[2020-08-17] MEDS: PANTOprazole 40 MG TAB PO SCH (08:21)
[2020-08-17] MEDS: dilTIAZem HCL 240 MG CAPCR PO SCH (08:22)
[2020-08-17 08:25] LABS: ALC (manual) 0.18 K/uL (1.2-3.4); ANC (manual) 10.04 K/uL (1.4-6.5); Lymphocytes # (manual) 0.18 K/uL (1.2-3.4); Lymphocytes % (manual) 1.7 %; Metamyelocytes # (manual) 0.18 K/uL (0-0); Metamyelocytes % (manual) 1.7 %; Monocytes # (manual) 0.28 K/uL (0.11-0.59); Monocytes % (manual) 2.6 %; Neutrophils # (manual) 10.04 K/uL (1.4-6.5)
[2020-08-17 09:49] LABS: Albumin Level 2.9 gm/dl (3.4-5.0); BUN Creatinine Ratio 5.3 (10-20); Calcium 8.8 mg/dl (8.5-10.1); Creatinine Clr Calc Pharmacy 87.7 ml/min; Est GFR (African American) 112.9; Est GFR (Non-African American) 97.4; Magnesium 1.7 mg/dl (1.8-2.4); Potassium 3.4 mmol/L (3.5-5.1)
[2020-08-17 09:51] LABS: Albumin Globulin Ratio 0.9 (0.9-2); Globulin 3.1 gm/dl (2.5-4.0); Phosphorus 2.8 mg/dl (2.5-4.9)
[2020-08-17] MEDS: POTASSIUM CHLORIDE / WTR 10 MEQ/100 ML PLCT IV SCH ×2 (10:58→12:35)
[2020-08-17] MEDS: MAGNESIUM SULFATE / D5W 1 GM/100 ML BAG IV SCH ×2 (10:59→12:59)
[2020-08-17] MEDS ORDERED: SUCRALFATE 1 GM/10 ML UDC PO SCH ×2 (11:30→16:00)
[2020-08-17] MEDS ORDERED: Nursing to Pharmacy Communication SCH (12:45)
[2020-08-17] MEDS ORDERED: ENOXAPARIN INJ 40 MG/0.4 ML SYR SQ SCH ×2 (13:00→22:00)
[2020-08-17 13:20] VITALS: TEMP 97.9
[2020-08-17 13:37] VITALS: O2SAT 93
[2020-08-17] MEDS: HEPARIN 100 UNIT/ML 5ML FLUSH FLUSH PRN (14:58)
[2020-08-17 15:08] VITALS: BP 165/80
[2020-08-17 15:09] VITALS: PULSE 72
--- NOTE | 2020-08-17 15:09 | Discharge Summary ---
Date of Service date of admission - August 14, 2020 date of discharge - August 17, 2020 Admission HPI Per Admitting Provider Lori Tipton is a 60 year old female with small cell lung cancer who presents to the ER with intractable nausea and vomiting with poor oral intake causing hypok alemia and hypomagnesemia. She is currently finished with radiation therapy since 06/30/2020 and chemotherapy on 07/27/20. Despite finishing chemoradiation she has continued to feel significantly nauseous with very poor oral intake. The sight/smell of food makes her feel nauseous but she also feels food getting stuck in her mid esophagus and comes right back up - this occurs with both solid and liquid food equally. She denies taking any pain medication therefore does not think this is causing her symptoms. She was having issues with constipation but has been given Senokot for the last three days by her oncologist and had a decent bowel movement yesterday. Metoclopramide has helped her the most with her nausea and vomiting. In June she was hospitalized for severe chest pain suspected secondary to radiation esophagitis and esophageal spasms. At that time she was started on pantoprazole 40mg PO BID and Carafate. She notes the Carafate would not go down and has not taken this since discharge from hospital. She also tried nitroglycerin but says that made her feel "weird". She was started on diltiazem in addition at this time to help. She was again hospitalized from July 30- due to near syncopal episode and left ankle fracture but required three units PRBCs and 4 units platelet transfusions. Suspected due to myelosuppression at that time from chemotherapy. She followed up with oncology earlier today and labs taken concerning for potassium 2.6, magnesium 1.1 in setting of ongoing poor oral intake. She also remains anemic despite her platelets recovering although she denies any melena or bright red blood in stool. Principal Diagnosis dehydration & electrolyte disturbances 2nd to severe radiation esophagitis Discharge Exam Constitutional no acute distress and no altered mental status ENMT Mouth: no oral mucosal abnormality and oral mucous membranes not dry Respiratory no respiratory distress Auscultation: + wheezes (b/l, end-exp); no crackles Cardiovascular Rate/Rhythm: regular rate and regular rhythm Heart Sounds: normal S1, normal S2 and + murmur (1/6 LSB, systolic) Vessels: posterior tibial pulses present and dorsalis pedis pulses present; no JVD Extremities: no edema Gastrointestinal (Abdomen) normal bowel sounds, soft, nontender, no hepatosplenomegaly Musculoskeletal left distal leg/foot/ankle in splint Skin + pallor and + total alopecia Psychiatric Orientation: alert and oriented x 3 Discharge Data Allergies Allergy/AdvReac Type Severity Reaction Status Date / Time lisinopril AdvReac Mild Cough Verified 08/14/20 19:12 Consultations [facility] Gastroenterology Procedures Performed Transfusion of 2 units PRBCs Hospital Course (1) Radiation esophagitis: Dx 06/2020 on EGD by [facility]. Has been ongoing issue for weeks with failure to thrive and weight loss - severe. With a collection of numerous medications her symptoms improved while here. CARAFATE LIQUID SEEMED TO MAKE THE LARGEST IMPACTION. Unfortunately was NOT able to tolerate the carafate tablets at home, even if she tried taking it in a slurry form. Prior authorization for carafate liquid was completed before she was discharged home -- awaiting final approval. In addition to the carafate liquid she will continue reglan 10mg ac/hs, protonix 40mg BID, zofran prn, and magic mouthwash prn. She was tolerating a clear liquid diet prior to discharge without vomiting. (2) Intractable nausea and vomiting: likely due to radiation esophagitis. symptoms improved as noted above in "Radiation esophagitis." cortisol level was 6 - she could have an element of adrenal insufficiency which could be contributing to symptoms. Recommend OUTPATIENT COSYNTROPIN STIMULATION TEST AND IF NOT PASSED TRIAL OF STEROIDS. ALTERNATIVELY, GIVEN THE LOW CORTISOL LEVEL IN THE FACE OF HER PHYSICAL STRESS/ILLNESS, COULD SIMPLY TRIAL HER ON EMPIRIC STEROIDS. DEFER TO HER OUTPATIENT PROVIDERS. (3) Hypokalemia: Resolved after copious replacement. K level 3.4 at discharge. Continue oral supplementation at discharge. (4) Hypomagnesemia: Due to poor oral intake as well as vomiting. Replaced; level was 1.7 at discharge. Continue oral supplementation at discharge. (5) Anemia: Likely 2nd to her cancer. Blood draws, recent ankle surgery, etc also likely contributing to anemia. S/P 3 units PRBCs on last admission. Fe studies c/w ACD. B12/folate wnl. s/p 2 units PRBCs this admission. Discharge hemoglobin was 9.6. (6) Small cell lung cancer: s/p chemotherapy and radiation. PET scan done just before admission showed a positive treatment response. Patient made aware of the PET scan findings. She [facility] for [facility] care. (7) Trimalleolar fracture of left ankle: s/p ORIF by Dr Abdi - 08/07/20. 25-OH vit D level earlier this month low 20s. supplement vitamin D at discharge. f/u Dr Abdi post-d/c. needs DVT proph - high risk DVT due to recent surgery and her cancer. lovenox 40mg daily. patient felt comfortable with lovenox injections and technique demonstrated to patient. cost was checked at local pharmacy and was reasonable. should remain on the lovenox for 6 weeks. nonweightbearing status to LLE until otherwise cleared by Dr Abdi. (8) Hypertension: Cont home meds (9) Wheezing: emphysema changes on cxr. previous heavy smoker. suspect she has element of COPD. cont albuterol 2 puffs qid prn. (10) Severe protein-calorie malnutrition: 2nd to lung cancer. at least 12 kg of weight loss this fall alone. (11) DVT prophylaxis: lovenox 40mg once daily x 6 weeks as noted above. especially important in face of advanced cancer as well as left ankle fracture s/p ORIF. currently nonweightbearing status to LLE. Total Time Total Time Spent Total Time Spent (In Minutes): 45 Total Time Includes: Examination of the Patient, Discharge Planning, Medication Reconciliation and Communication With Other Providers Discharge Plan Discharge Items Patient Disposition: Home - Home Health Services Reason For Visit: HYPOKALEMIA, HYPOMAGNESEMIA, INTRACTABLE NAUSEA Discharge Diagnosis: 1. hypokalemia (low potassium) - much improved with IV and oral supplementation 2. hypomagnesemia (low magnesium) - much improved 3. nausea, vomiting - improved 4. radiation esophagitis - improved 5. wheezing - improving 6. anemia - 2 units of blood given; hemoglobin on discharge 9.6 7. recent left ankle fracture with surgery - follow-up with Dr Abdi for this; DVT blood clot prevention recommended with lovenox shots 8. lung cancer - follow-up with Dr Olmos 9. borderline low cortisol level - need additional testing ("cosyntropin stimulation test") as outpatient to rule out adrenal insufficiency Activity: As commented below Activity Comment: non-weightbearing to left leg/foot Non-emergency contact: Primary Care Provider, Surgeon and Oncologist Call non-emergency contact if: you have any medication questions, your symptoms worsen, your pain is not controlled and you have a fever Follow-up/Referrals: Jane Ortiz DO [Primary Care Provider] - (see Dr Ortiz within 1-2 weeks ) Lucio Olmos DO [Physician] - (follow-up within [address] Olmos ) Arturo Wall MD [Physician] - (follow-up as needed with Dr Juan Garcia, or their physician assistants for esophagus issues ) Donnie Abdi MD [Physician] - (follow-up as scheduled for recheck of left ankle) Diet: Clear liquid Addtl Attending Provider Instructions: Mrs Tipton, You were treated for the problems listed above in "discharge diagnoses." I am happy for you that you are feeling better and able to take some nourishment . Recommendations from the care team - 1. for nausea / vomiting -- * continue metoclopramide 10mg 20 minutes before meals and at bedtime - scheduled * continue ondansetron oral disintegrating tabs 8mg, 1 every 8 hours as needed 2. for irritated, inflamed esophagus - * continue pantoprazole 40mg twice daily * carafate (sucralfate) liquid - 10ml about 20-30 minutes before meals (breakfast, lunch, dinner); prior authorization form sent to your insurance; awaiting reply on this * magic mouthwash every 6 hours as needed - swish and swallow * may use [id number] pepcid 20mg up to twice a day as needed for irritated stomach, heartburn, etc 3. for low potassium and low magnesium - * magnesium oxide 400mg once daily * potassium 20meq once daily; this is in powder form; can be mixed in appl esauce, pudding or other foods 4. for prevention of blood clots in your legs and lungs - * lovenox injection - 40mg once daily via syringe; rotate the site in your abdomen; start TOMORROW on 08/18/20 * Dr Abdi is recommending about 6 weeks of use of this injection 5. ventolin inhaler, 2 puffs every 4 hours as needed for cough or wheezing 6. if it's hard for you to swallow these consider stopping your cholesterol medications 7. follow-up - see separate section Return to [facility] if - * you have fevers over 100 degrees * you have worsening shortness of breath or chest pain * you have vomiting that won't stop despite taking the above medications * you can't eat/drink/stay hydrated * any other concerns Happy Thanksgiving and stay well! -Dr Hall Pending Studies at Discharge: No Stand-Alone Forms: [facility], Smoking Cessation Medications and DC Order Prescriptions: New albuterol sulfate [Ventolin HFA] 90 mcg/actuation Hfa Aerosol Inhaler 2 puff inhalation Q4H PRN (Reason: cough/wheezing) Qty: 1 RF: 0 melatonin 3 mg Tablet 3 mg PO HS PRN (Reason: sleep) Qty: 1 RF: 0 magnesium oxide 400 mg magnesium tablet 400 mg PO DAILY Qty: 30 RF: 2 potassium chloride [Klor-Con] 20 mEq packet 20 meq PO DAILY Qty: 30 RF: 2 sucralfate 100 mg/mL suspension 1 g PO AC 28 Days Qty: 840 RF: 2 ondansetron 8 mg tablet,disintegrating 8 mg PO Q8H PRN (Reason: Nausea And Vomiting) Qty: 15 RF: 0 enoxaparin [Lovenox] 40 mg/0.4 mL syringe 40 mg subcut DAILY 30 Days Qty: 12 RF: 1 Magic Mouthwash 300 mL mouthwash 5 ml mucous membrane Q6H PRN (Reason: esophagus pain) Qty: 300 RF: 0 Continued atorvastatin 10 mg tablet 10 mg PO HS Qty: 30 RF: 0 fenofibrate nanocrystallized 48 mg tablet 48 mg PO QAM Qty: 90 RF: 1 nitroglycerin [Nitrostat] 0.4 mg Tablet, Sublingual 0.4 mg sublingual Q3H PRN (Reason: Epigastric pain) Qty: 20 RF: 0 diltiazem HCl [Tiadylt ER] 240 mg capsule,extended release 24 hr 240 mg PO DAILY Qty: 30 RF: 0 hydrocodone-acetaminophen 7.5-325 mg/15 mL solution 15 ml PO Q6H PRN (Reason: Esophagitis) RF: 0 amlodipine 10 mg tablet 10 mg PO DAILY RF: 0 pantoprazole 40 mg tablet,delayed release (DR/EC) 40 mg PO BID Qty: 60 RF: 2 metoclopramide HCl 10 mg tablet 10 mg PO ACHS Qty: 120 RF: 2 Discontinued prochlorperazine maleate 10 mg tablet 10 mg PO Q6H PRN (Reason: Nausea) RF: 0 oxycodone-acetaminophen 5-325 mg tablet 1 tab PO Q6H PRN (Reason: Pain) RF: 0 Discharge Orders: Discharge Order (Routine); Ordered 08/17/20 Ordered By: Mo Hall Admission Data Admit Date/Time: 08/14/20 18:25 Attending Provider: Mo Hall Admit Provider: Mo Valadez Primary Care Provider: Jane Ortiz Other Providers: Mo Valadez ; Arturo Wall Other Interventions: Discharge Summary Assessment (RN) Last Done: 08/17/20 15:07 Coding Level of Care Code D/C Day Management >30 mins Diagnoses Radiation esophagitis K20.80; T66.XXXA Intractable nausea and vomiting R11.2 Hypokalemia E87.6 Hypomagnesemia E83.42 Anemia D64.9 Anemia type: unspecified type Small cell lung cancer C34.90 Trimalleolar fracture of left ankle S82.852A Encounter type: initial encounter Fracture type: closed Hypertension I10 Hypertension type: essential hypertension Wheezing R06.2 Severe protein-calorie malnutrition E43 DVT prophylaxis Z29.9
== END 2020-08-17 17:00 | disposition home health service (06) | DRG 391 ==
LOC: ED 14:52 → SUATTDRO 18:25 → 2N 18:25 → 2W 08-15 15:18

== ENCOUNTER 2020-12-07 14:58 | Inpatient (IN) ==
[2020-12-07] MEDS ORDERED: SODIUM CHLORIDE 0.9% 1000ML 1,000 ML IV ONE (15:22)
[2020-12-07] MEDS ORDERED: MAGNESIUM SULFATE / D5W 1 GM/100 ML BAG IV STA (15:25)
--- NOTE | 2020-12-07 15:40 | Emergency Department Note ---
Impression & Plan Symptomatic anemia, Small cell lung cancer, Hypotension, Renal insufficiency, Hypomagnesemia ED Provider Note NAME: NELLY PAINTER AGE: 60 SEX: F ARRIVES VIA: Walk-In INFORMANT: Patient, ED PROVIDER(S): Rajesh Palacios MD CHIEF COMPLAINT: Weakness, dizziness, hypotension, anemia. PLAN: Disposition: Admit MEDICAL DECISION MAKING: The patient is a pleasant 60-year-old woman with a past medical history of small cell lung cancer having completed chemotherapy into September as well as completion of radiation now undergoing prophylactic brain radiation who referred the emergency department for continued low blood pressure, dizziness and downtrending hemoglobin over the past several weeks with hemoglobin of 8.0 in the cancer center today as well as magnesium of 1.4. The patient was seen in the emergency department on 11/27 for a fall and low blood pressure but her symptoms and pressure improved with hydration. Her evaluation was otherwise stable including negative CT of the head.However the patient reports continued generalized weakness. She denies any bloody or black stools in her last bowel movement was brown and "normal". She reports some mild shortness of breath with exertion but denies any shortness of breath at rest, chest pain, fevers, cough, congestion. On arrival the patient has acute on chronically ill-appearing, fatigued but no acute distress, afebrile with blood pressure 80s/50s and vital signs otherwise stable. She appears clinically dry. She has moderate pallor. Abdomen is benign. She has no focal neurologic deficits. EKG without overt acute ischemia. Chest x-ray negative for acute cardiopulmonary process. Chemistry without metabolic acidosis. Creatinine 1.5 within prior range of values. Electrolytes unremarkable. Troponin negative/undetectable. LFTs unremarkable. Iron studies were ordered and pending as was the patient's repeat CBC. Type and screen performed as well. IV fluid hydration initiated in the patient's blood pressure did show modest improvement to 100s/50s. Given the patient's persistent low blood pressure and progressing anemia reasonable to admit the patient for further management. The patient was agreeable with this plan. Case was d/w Dr. Ardon, [facility] hospitalist who will evaluate the patient for admission. CBC subsequently resulting which showed a hemoglobin of 6.9. Admitting team aware and will order transfusion. Triage Nursing notes reviewed and agree them. Prior medical records reviewed Vital Signs: reviewed and remarkable for hypotension Differential diagnosis: Infection, dehydration, metabolic abnormality, hypo/hyperglycemia, electrolyte disturbance, anemia, hypoxia, cardiac sources, intracerebral event, toxicologic, neurologic, as well as other pathologies. ER treatment provided: See below. Diagnostics interpreted by me: ECG: Normal sinus rhythm, 60 bpm, no ectopy, no overt ST elevation or depression, QTC 420, cures 96. Cardiac Monitoring: An order for continuous cardiac monitoring was placed and demonstrated Normal sinus rhythm, 60 bpm, no ectopy. Laboratory studies: See below Imaging studies: SINGLE VIEW CHEST CLINICAL HISTORY: Atypical chest pain. Lung cancer. FINDINGS: An AP, portable, upright chest radiograph is compared to study dated 11/27/2020 and correlated with chest CT dated 10/19/2020. A left subclavian central venous infusion port is unchanged in position. The examination is degraded by portable technique and patient rotation. The cardiomediastinal silhouette is unremarkable. Emphysema and chronic interstitial thickening is similar to previous. The patient's known left upper lobe pulmonary lesion is not well- visualized by x-ray. No airspace consolidation or large pleural effusion is identified. No pneumothorax is seen. The skeletal structures are osteopenic. The bony thorax is grossly intact. IMPRESSION: Emphysematous change with no acute cardiopulmonary abnormality. Consultation(s): Case was d/w Dr. Ardon, [facility] hospitalist who will evaluate the patient for admission. HPI: The patient is a pleasant 60-year-old woman with a past medical history of small cell lung cancer having completed chemotherapy into September as well as completion of radiation now undergoing prophylactic brain radiation who referred the emergency department for continued low blood pressure, dizziness and downtrending hemoglobin over the past several weeks with hemoglobin of 8.0 in the cancer center today as well as magnesium of 1.4. The patient was seen in the emergency department on 11/27 for a fall and low blood pressure but her symptoms and pressure improved with hydration. Her evaluation was otherwise stable including negative CT of the head.However the patient reports continued generalized weakness. She denies any bloody or black stools in her last bowel movement was brown and "normal". She reports some mild shortness of breath with exertion but denies any shortness of breath at rest, chest pain, fevers, cough, congestion. ROS: See above HPI for pertinent positives & negatives. A total of 10 systems reviewed and were otherwise negative. PAST MEDICAL HISTORY:See Below PAST SURGICAL HISTORY:See Below FAMILY HISTORY:See Below SOCIAL HISTORY:See Below HOME MEDICATIONS:See Below ALLERGIES:See Below VITALS:See Below PHYSICAL EXAMINATION: GENERAL: Awake, alert, fatigued/ acute on chronically ill-appearing, in no distress HENT: Normocephalic, atraumatic. Oropharynx with dry mucous membranes and otherwise unremarkable. EYES: Normal conjunctiva. Sclera non-icteric. NECK: Supple. No nuchal rigidity. FROM. No JVD. RESPIRATORY: Clear to auscultation. CARDIAC: Regular rate, normal rhythm. Extremities warm and well perfused. Pulses equal. ABDOMEN: Soft, non-distended. No tenderness to palpation. No rebound or guarding. No masses. RECTAL: Deferred. MUSCULOSKELETAL: Chest examination reveals no tenderness. The back is symmetrical on inspection without obvious abnormality. There is no CVA tenderness to palpation. No joint edema. LOWER EXTREMITIES: Calves are equal size bilaterally and non-tender. No edema. No discoloration. NEURO: Normal sensorium. No sensory or motor deficits noted. SKIN: Mild pallor. No rash or jaundice noted. ED COURSE: Critical Care: I have personally spent greater than 35 minutes of critical care time in the direct management of this patient. This includes bedside care, interpretation of diagnostic studies, and testing, discussion with consultants, patient, and family members, and other required patient management activities. This 35 minutes is in excess of all separately billable procedures. Rajesh Palcaios MD Past Med/Surg History Medical History Anemia Anxiety Arthritis Bilat Knees & lower back CKD (chronic kidney disease) stage 3, GFR 30-59 ml/min Depression Dysphagia Esophageal spasm GERD (gastroesophageal reflux disease) Hypercholesterolemia Pancytopenia Restless leg syndrome Small cell lung cancer (04/21/20) Summer 2019. no surgical intervention Trimalleolar fracture of left ankle Surgical History H/O arthroscopic knee surgery 1998 RIGHT/ 2011 LEFT H/O tubal ligation 1991 H/O: section x2 1987 & 1982 History of bronchoscopy (04/21/20) 04/21/2020 - with positive biopsy History of esophagogastroduodenoscopy (EGD) History of excision of pilonidal cyst 1987 History of open reduction and internal fixation (ORIF) procedure (07/2020) L ankle secondary to fracture History of tooth extraction molars Port-A-Cath in place (05/25/20) Insertion of Mediport Left Subclavian with Fluoroscopy Dr. Ramos 05/25/2020 S/P carpal tunnel release 1989's 2014 LEFT S/P tonsillectomy Age 4 Family History Mother , Passed age 64 of pancreatic cancer Cancer Hypertension Father Hearing loss Grandmother (Maternal) , Passed age 79 of Stomach Cancer No problems noted. Uncle , Passed in 80's of Colorectal Cancer No problems noted. Brother No problems noted. Brother No problems noted. Sister No problems noted. Grandfather (Maternal) , Passed age 89 of Bladder Cancer No problems noted. Son No problems noted. Daughter No problems noted. Grandmother Cancer Grandfather Cancer Other No family history of adverse response to anesthesia No family history of allergies No family history of bleeding disorder Denies family history of Ovarian cancer Heart disease Breast cancer Lung cancer Asthma Social History Smoking Status: Former smoker Tobacco Type: Cigarettes Age Started Using Tobacco: 20; Age Quit Using Tobacco: 60; packs per day: 1; Years Smoked: 40; Second Hand Exposure: No; Hx Alcohol Use: No Hx Substance Use: No Preferred Language: Wallisian Communication Ability: Effective Visual Impairment: No Limitations Hearing Ability: Normal 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: No Beliefs That Will Affect Care: None marital status: Current Living Situation: Spouse current occupational status: employed 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 How many Children do You have: 2 Feels Safe at Home: Yes Childhood Exposure to Second-Hand Smoke: Yes caffeine: Yes (ice tea) during the past year weight has: remained stable Dental Care, Regularly: Yes Physical Activity Frequency: Does not Exercise Seatbelt Use: always Sunscreen Use: No Assistive Devices: None Allergies Allergies Allergy/AdvReac Type Severity Reaction Status Date / Time lisinopril AdvReac Mild Cough Verified 12/07/20 17:26 Home Meds Home Medications Medication Instructions Recorded Confirmed dronabinol 5 mg PO TID 11/27/20 12/07/20 omeprazole 20 mg PO DAILY PRN 11/27/20 12/07/20 sertraline 50 mg PO DAILY 11/27/20 12/07/20 sucralfate 1 g PO ACHS 11/27/20 12/07/20 diltiazem HCl 60 mg PO BID PRN 12/07/20 12/07/20 hydrocodone-acetaminophen 7.5 ml PO Q6H PRN 12/07/20 12/07/20 ondansetron 8 mg PO Q6H PRN 12/07/20 12/07/20 Previous Rx's Medication Instructions Recorded magnesium oxide 400 mg PO DAILY #30 tab 08/17/20 nitroglycerin 0.4 mg sublingual 0.4 mg SUBLINGUAL Q3H PRN #20 tab 09/13/20 tablet pantoprazole 40 mg tablet,delayed 40 mg PO BID #180 tab 11/06/20 release Results & Data (ED) Vital Signs Vital Signs - 24 hr 12/07/20 15:00 12/07/20 15:30 12/07/20 16:00 Temperature 36.8 C Temperature Source Temporal Artery Scan Pulse Rate 84 60 65 Pulse Rate from SpO2 Sensor 60 63 Respiratory Rate 16 26 H 16 Respiratory Effort / Characteristics Non-Labored Spontaneous Respiratory Depth Normal Respiratory Pattern Regular Blood Pressure 87/54 L 100/54 L 95/52 L Blood Pressure Mean 65 69 66 Blood Pressure Position Sitting Pulse Oximetry 93 96 98 Oxygen Delivery Method Room Air Room Air Sepsis Recent Fever Within 48 Hours No Sepsis New/Unexplained Change in Mental Status N/A Sepsis Action Taken by Nursing No Action Required 12/07/20 16:30 12/07/20 17:30 12/07/20 18:00 Temperature Temperature Source Pulse Rate 65 62 66 Pulse Rate from SpO2 Sensor 65 63 67 Respiratory Rate 24 14 19 Respiratory Effort / Characteristics Respiratory Depth Respiratory Pattern Blood Pressure 103/43 L 111/59 L 102/63 Blood Pressure Mean 63 76 76 Blood Pressure Position Pulse Oximetry 97 96 95 Oxygen Delivery Method Sepsis Recent Fever Within 48 Hours Sepsis New/Unexplained Change in Mental Status Sepsis Action Taken by Nursing 12/07/20 18:30 Temperature Temperature Source Pulse Rate 62 Pulse Rate from SpO2 Sensor 63 Respiratory Rate 21 Respiratory Effort / Characteristics Respiratory Depth Respiratory Pattern Blood Pressure 103/55 L Blood Pressure Mean 71 Blood Pressure Position Pulse Oximetry 97 Oxygen Delivery Method Sepsis Recent Fever Within 48 Hours Sepsis New/Unexplained Change in Mental Status Sepsis Action Taken by Nursing Laboratory Data Attestation: I reviewed the patient's lab results. Result diagrams: 12/07/20 15:41 12/07/20 15:41 Lab Results 12/07/20 12/07/20 12/07/20 Range/Units 15:41 15:41 15:41 WBC 5.07 (4.8-10.8) K/uL RBC 2.16 L (4.2-5.4) M/uL Hgb 6.9 L* (12.0-16.0) g/dL Hct 20.7 L* (37-47) % MCV 95.8 (80-100) fL MCH 31.9 (25-34) pg MCHC 33.3 (32-36) g/dL RDW Std Deviation 63.3 H (36.4-46.3) fL RDW Coeff of Sebastián 18.0 H (11.5-14.5) % Plt Count 150 (130-400) K/uL MPV 9.6 (7.4-10.4) fL Immature Gran % (Auto) 0.8 % Neut % (Auto) 75.9 % Lymph % (Auto) 14.2 % [place] % (Auto) 7.1 % Eos % (Auto) 1.8 % Baso % (Auto) 0.2 % Reticulocyte % (Auto) 2.0 (0.5-2.0) % Neut # (Auto) 3.85 (1.4-6.5) K/uL Lymph # (Auto) 0.72 L (1.2-3.4) K/uL [place] # (Auto) 0.36 (0.11-0.59) K/uL Eos # (Auto) 0.09 (0-0.5) K/uL Baso # (Auto) 0.01 (0-0.2) K/uL Reticulocyte # 0.04 (0.02-0.10) 10^6/uL Immature Gran # (Auto) 0.04 H (0.00-0.02) K/uL RBC Morphology Unremarkable PT 10.2 (9.0-12.0) Seconds INR 1.0 (0.9-1.1) Sodium 136 (136-145) mmol/L Potassium 4.1 (3.5-5.1) mmol/L Chloride 106 (98-107) mmol/L Carbon Dioxide 25 (21-32) mmol/L Anion Gap 5.0 (3-11) BUN 20 H (7-18) mg/dl Creatinine 1.50 H (0.6-1.2) mg/dl Est Cr Clr Drug Dosing 35.5 ml/min Est GFR ( Amer) 44.1 Est GFR (Non-Af Amer) 38.0 BUN/Creatinine Ratio 13.1 (10-20) Glucose 94 (70-99) mg/dl Calcium 8.4 L (8.5-10.1) mg/dl Phosphorus 3.7 (2.5-4.9) mg/dl Magnesium 2.4 (1.8-2.4) mg/dl Iron 20 L (35-150) mcg/dl TIBC 73 L (250-450) mcg/dl Transferrin 78 L (200-360) mg/dl Ferritin 1608.4 H (8-388) ng/ml Total Bilirubin 0.5 (0.2-1) mg/dl Direct Bilirubin < 0.1 (0-0.2) mg/dl AST 8 L (15-37) U/L ALT 11 L (12-78) U/L Alkaline Phosphatase 79 (45-117) U/L Troponin I < 0.015 (0-0.045) ng/ml Total Protein 5.4 L (6.4-8.2) gm/dl Albumin 2.5 L (3.4-5.0) gm/dl Globulin 2.9 (2.5-4.0) gm/dl Albumin/Globulin Ratio 0.9 (0.9-2) TSH 0.333 (0.300-4.500) uIu/ml Urine Color Urine Appearance (Clear) Urine pH (4.5-7.5) Ur Specific Axis (1.000-1.030) Urine Protein (Negative) Urine Glucose (UA) (Negative) Urine Ketones (Negative) Urine Blood (Negative) Urine Nitrite (Negative) Urine Bilirubin (Negative) Urine Urobilinogen (Negative) Ur Leukocyte Esterase (Negative) COVID-19 Eval Order SARS-CoV-2, RNA, NAAT (NEGATIVE) Blood Type Antibody Screen 12/07/20 12/07/20 12/07/20 Range/Units 15:53 16:54 16:54 WBC (4.8-10.8) K/uL RBC (4.2-5.4) M/uL Hgb (12.0-16.0) g/dL Hct (37-47) % MCV (80-100) fL MCH (25-34) pg MCHC (32-36) g/dL RDW Std Deviation (36.4-46.3) fL RDW Coeff of Sebastián (11.5-14.5) % Plt Count (130-400) K/uL MPV (7.4-10.4) fL Immature Gran % (Auto) % Neut % (Auto) % Lymph % (Auto) % [place] % (Auto) % Eos % (Auto) % Baso % (Auto) % Reticulocyte % (Auto) (0.5-2.0) % Neut # (Auto) (1.4-6.5) K/uL Lymph # (Auto) (1.2-3.4) K/uL [place] # (Auto) (0.11-0.59) K/uL Eos # (Auto) (0-0.5) K/uL Baso # (Auto) (0-0.2) K/uL Reticulocyte # (0.02-0.10) 10^6/uL Immature Gran # (Auto) (0.00-0.02) K/uL RBC Morphology PT (9.0-12.0) Seconds INR (0.9-1.1) Sodium (136-145) mmol/L Potassium (3.5-5.1) mmol/L Chloride (98-107) mmol/L Carbon Dioxide (21-32) mmol/L Anion Gap (3-11) BUN (7-18) mg/dl Creatinine (0.6-1.2) mg/dl Est Cr Clr Drug Dosing ml/min Est GFR ( Amer) Est GFR (Non-Af Amer) BUN/Creatinine Ratio (10-20) Glucose (70-99) mg/dl Calcium (8.5-10.1) mg/dl Phosphorus (2.5-4.9) mg/dl Magnesium (1.8-2.4) mg/dl Iron (35-150) mcg/dl TIBC (250-450) mcg/dl Transferrin (200-360) mg/dl Ferritin (8-388) ng/ml Total Bilirubin (0.2-1) mg/dl Direct Bilirubin (0-0.2) mg/dl AST (15-37) U/L ALT (12-78) U/L Alkaline Phosphatase (45-117) U/L Troponin I (0-0.045) ng/ml Total Protein (6.4-8.2) gm/dl Albumin (3.4-5.0) gm/dl Globulin (2.5-4.0) gm/dl Albumin/Globulin Ratio (0.9-2) TSH (0.300-4.500) uIu/ml Urine Color Urine Appearance (Clear) Urine pH (4.5-7.5) Ur Specific Axis (1.000-1.030) Urine Protein (Negative) Urine Glucose (UA) (Negative) Urine Ketones (Negative) Urine Blood (Negative) Urine Nitrite (Negative) Urine Bilirubin (Negative) Urine Urobilinogen (Negative) Ur Leukocyte Esterase (Negative) COVID[facility]19 [email or web address]-2, RNA, NAAT NEGATIVE (NEGATIVE) Blood Type B Positive Antibody Screen NEGATIVE 12/07/20 Range/Units 17:04 WBC (4.8-10.8) K/uL RBC (4.2-5.4) M/uL Hgb (12.0-16.0) g/dL Hct (37-47) % MCV (80-100) fL MCH (25-34) pg MCHC (32-36) g/dL RDW Std Deviation (36.4-46.3) fL RDW Coeff of Sebastián (11.5-14.5) % Plt Count (130-400) K/uL MPV (7.4-10.4) fL Immature Gran % (Auto) % Neut % (Auto) % Lymph % (Auto) % [place] % (Auto) % Eos % (Auto) % Baso % (Auto) % Reticulocyte % (Auto) (0.5-2.0) % Neut # (Auto) (1.4-6.5) K/uL Lymph # (Auto) (1.2-3.4) K/uL [place] # (Auto) (0.11-0.59) K/uL Eos # (Auto) (0-0.5) K/uL Baso # (Auto) (0-0.2) K/uL Reticulocyte # (0.02-0.10) 10^6/uL Immature Gran # (Auto) (0.00-0.02) K/uL RBC Morphology PT (9.0-12.0) Seconds INR (0.9-1.1) Sodium (136-145) mmol/L Potassium (3.5-5.1) mmol/L Chloride (98-107) mmol/L Carbon Dioxide (21-32) mmol/L Anion Gap (3-11) BUN (7-18) mg/dl Creatinine (0.6-1.2) mg/dl Est Cr Clr Drug Dosing ml/min Est GFR ( Amer) Est GFR (Non-Af Amer) BUN/Creatinine Ratio (10-20) Glucose (70-99) mg/dl Calcium (8.5-10.1) mg/dl Phosphorus (2.5-4.9) mg/dl Magnesium (1.8-2.4) mg/dl Iron (35-150) mcg/dl TIBC (250-450) mcg/dl Transferrin (200-360) mg/dl Ferritin (8-388) ng/ml Total Bilirubin (0.2-1) mg/dl Direct Bilirubin (0-0.2) mg/dl AST (15-37) U/L ALT (12-78) U/L Alkaline Phosphatase (45-117) U/L Troponin I (0-0.045) ng/ml Total Protein (6.4-8.2) gm/dl Albumin (3.4-5.0) gm/dl Globulin (2.5-4.0) gm/dl Albumin/Globulin Ratio (0.9-2) TSH (0.300-4.500) uIu/ml Urine Color Yellow Urine Appearance Clear (Clear) Urine pH 6.0 (4.5-7.5) Ur Specific Axis 1.013 (1.000-1.030) Urine Protein Negative (Negative) Urine Glucose (UA) Negative (Negative) Urine Ketones Negative (Negative) Urine Blood Negative (Negative) Urine Nitrite Negative (Negative) Urine Bilirubin Negative (Negative) Urine Urobilinogen Negative (Negative) Ur Leukocyte Esterase Negative (Negative) COVID-19 Eval Order SARS-CoV-2, RNA, NAAT (NEGATIVE) Blood Type Antibody Screen Administered Medications Discontinued Medications Sodium Chloride (Nss 1000ml) 1,000 mls @ 999 mls/hr IV .[id number] ONE Stop: 12/07/20 16:22 Last Infusion: 12/07/20 16:56 Dose: 0 mls/hr Documented by: [id number] Admin: 12/07/20 15:55 Dose: 999 mls/hr Documented by: [id number] Magnesium Sulfate/Dextrose (Magnesium Sulfate / D5w) 1 gm in 100 mls @ 100 mls/hr IV NOW STA Stop: 12/07/20 16:24 Last Infusion: 12/07/20 16:55 Dose: 0 mls/hr Documented by: [id number] Admin: 12/07/20 15:55 Dose: 100 mls/hr Documented by: [id number] Discharge Plan Visit Data Chief Complaint: Hypotension Stated Complaint: LOW BP,LOW HEMOGLOBIN ED Provider: Rajesh Palacios Discharge Problem: Symptomatic anemia, Small cell lung cancer, Hypotension, Renal insufficiency, Hypomagnesemia Forms Stand Alone Forms: [facility] Prescriptions Prescriptions: No Action nitroglycerin [Nitrostat] 0.4 mg tablet, sublingual 0.4 mg sublingual Q3H PRN (Reason: Epigastric pain) Qty: 20 RF: 0 pantoprazole [Protonix] 40 mg tablet,delayed release (DR/EC) 40 mg PO BID Qty: 180 RF: 3 magnesium oxide 400 mg magnesium tablet 400 mg PO DAILY Qty: 30 RF: 2 dronabinol 5 mg capsule 5 mg PO TID RF: 0 sucralfate 1 gram tablet 1 g PO ACHS RF: 0 sertraline 50 mg tablet 50 mg PO DAILY RF: 0 omeprazole 20 mg capsule,delayed release(DR/EC) 20 mg PO DAILY PRN (Reason: Acid Reflux) RF: 0 ondansetron 8 mg tablet,disintegrating 8 mg PO Q6H PRN (Reason: Nausea And Vomiting) RF: 0 diltiazem HCl 60 mg capsule,extended release 12 hr 60 mg PO BID PRN (Reason: Esophageal Spasms) RF: 0 hydrocodone-acetaminophen 7.5-325 mg/15 mL solution 7.5 ml PO Q6H PRN (Reason: Esophagitis Pain) RF: 0
[2020-12-07 16:04] LABS: Prothrombin Time 10.2 Seconds (9.0-12.0)
[2020-12-07 16:14] LABS: Alanine Aminotransferase 11 U/L (12-78); Albumin Level 2.5 gm/dl (3.4-5.0); Aspartate Aminotransferase 8 U/L (15-37); BUN Creatinine Ratio 13.1 (10-20); Bilirubin Direct < 0.1 mg/dl (0-0.2); Blood Urea Nitrogen 20 mg/dl (7-18); Calcium 8.4 mg/dl (8.5-10.1); Carbon Dioxide 25 mmol/L (21-32); Chloride 106 mmol/L (98-107); Creatinine Clr Calc Pharmacy 35.5 ml/min; Est GFR (African American) 44.1; Glucose 94 mg/dl (70-99); Iron 20 mcg/dl (35-150); Magnesium 2.4 mg/dl (1.8-2.4); Phosphorus 3.7 mg/dl (2.5-4.9); Potassium 4.1 mmol/L (3.5-5.1); Sodium 136 mmol/L (136-145)
--- NOTE | 2020-12-07 16:16 | XRay Report ---
SINGLE VIEW CHEST CLINICAL HISTORY: Atypical chest pain. Lung cancer. FINDINGS: An AP, portable, upright chest radiograph is compared to study dated 11/27/2020 and correlate d with chest CT dated 10/19/2020. A left subclavian central venous infusion port is unchanged in posit ion. The examination is degraded by portable technique and patient rotation. The cardiomediastinal silhouette is unremarkable. Emphysema and chronic interstitial thickening is similar to previous. The patient's known left upper lobe pulmonary lesion is not well-visualized by x-ray. No airspace consol idation or large pleural effusion is identified. No pneumothorax is seen. The skeletal structures are osteopenic. The bony thorax is grossly intact. IMPRESSION: Emphysematous change with no acute cardiopulmonary abnormality. ACT 112: Negative or not required by law. Electronically signed by: Bennett Petersen M.D. 12/07/2020 4:14 PM
[2020-12-07 16:23] LABS: Albumin Globulin Ratio 0.9 (0.9-2); Alkaline Phosphatase 79 U/L (45-117); Bilirubin,Total 0.5 mg/dl (0.2-1); Ferritin 1608.4 ng/ml (8-388); Globulin 2.9 gm/dl (2.5-4.0); Thyroid Stimulating Hormone 0.333 uIu/ml (0.300-4.500); Total Iron Binding Capacity 73 mcg/dl (250-450); Total Protein 5.4 gm/dl (6.4-8.2); Transferrin 78 mg/dl (200-360); Troponin I < 0.015 ng/ml (0-0.045)
[2020-12-07 17:31] LABS: Hematocrit (blood only) 20.7 % (37-47); Hemoglobin 6.9 g/dL (12.0-16.0); Mean Corpuscular Hemoglobin 31.9 pg (25-34); Mean Corpuscular Hgb Conc 33.3 g/dL (32-36); Mean Corpuscular Volume 95.8 fL (80-100); Mean Platelet Volume 9.6 fL (7.4-10.4); Platelet Count 150 K/uL (130-400); RDW Standard Deviation 63.3 fL (36.4-46.3); Red Blood Count 2.16 M/uL (4.2-5.4); White Blood Count 5.07 K/uL (4.8-10.8)
[2020-12-07 17:47] LABS: Basophils # (auto) 0.01 K/uL (0-0.2); Basophils % (auto) 0.2 %; Eosinophils # (auto) 0.09 K/uL (0-0.5); Eosinophils % (auto) 1.8 %; Immature Granulocytes # (auto) 0.04 K/uL (0.00-0.02); Immature Granulocytes % (auto) 0.8 %; Lymphocytes # (auto) 0.72 K/uL (1.2-3.4); Lymphocytes % (auto) 14.2 %; Monocytes # (auto) 0.36 K/uL (0.11-0.59); Monocytes % (auto) 7.1 %; Neutrophils # (auto) 3.85 K/uL (1.4-6.5); Neutrophils % (auto) 75.9 %; RBC Morphology Unremarkable; Reticulocytes # 0.04 10^6/uL (0.02-0.10)
[2020-12-07 18:21] LABS: Appearance Urine Clear (Clear); Bilirubin Urine Negative (Negative); Blood Urine Negative (Negative); Color Urine Yellow; Glucose Urine UA Negative (Negative); Ketones Urine Negative (Negative); Leukocyte Esterase Urine Negative (Negative); Nitrite Urine Negative (Negative); Protein Urine Negative (Negative); Specific Gravity Urine 1.013 (1.000-1.030); Urobilinogen Urine Negative (Negative)
--- NOTE | 2020-12-07 18:33 | History & Physical Report ---
Date of Service December 07, 2020 Assessment & Plan (1) Anemia: Hemoglobin of 6.9 in the ED. No black, tarry stools, no hematochezia, no hematemesis to indicate acute GI bleed. Iron labs indicate chronic disease/bone marrow suppression. B12/folate both normal in 07/2020. - Transfuse 2 units PRBCs - Recheck hgb in the AM - Will recheck B12/folate though low suspicion this is playing a role. (2) Hypotension: Likely from general malnutrition/dehydration. Per , she is only drinking about 500 mL / day which can barely keep up with insensible losses. No indication of sepsis. - IV fluids given in the ED - Blood as above will provide substantial fluid bolus - Will get AM cortisol to check for adrenal insufficiency given multiple rounds of radiation to the chest and head as well as chemo. (3) Esophageal stenosis: Significant difficulty with esophageal spasm for which she is on diltiazem and also trialed nitroglycerin and peppermint. This appears to be improving as she is having less "spasming" chest pain. Still with substantial nausea and now worsening regurgitation. - Full liquid diet with supplements (this is what she has been taking at home) - GI consulted; NPO @ midnight for possible EGD. Will reach out to [facility]. - Continue PPI PO BID - Add Compazine for her nausea. QTc is only 420, and and patient feel Zofran is no longer effective. (4) CKD (chronic kidney disease) stage 3, GFR 30-59 ml/min: Baseline Cr. appears to now be ~1.5. Likely from chemotherapy and recurrent episodes of dehydration and JOSE ANTONIO. - Presently at baseline. - Renally-dose medications - Monitor Cr (5) Small cell lung cancer: Diagnosed in March 2020. Received chest radiation therapy through 06/2020 as well as etoposide/carboplatin which finished in 09/2020. Finished 10 sessions of whole brain prophylactic radiation therapy about 2 weeks ago. - Presently in surveillance for further progression or recurrence. (6) Acute ITP: Diagnosed with acute ITP in 09/2020. This was steroid responsive. - Platelets now 150k - Monitor (7) DVT prophylaxis: Heparin 5,000 units SQ Q12h History of Present Illness Primary Care Provider: Jane Ortiz DO 60yo F w/ hx of small cell lung cancer who presents with nausea, vomiting, and anemia. Per the patient and her , she was doing well prior to whole brain prophylactic radiation therapy. She had finished her chemo (etoposide/carboplatin) in 07/2020. She and her report her appetite was improving with the dronabinol. She underwent WBPRT for 10 days, with the last day about 2 weeks prior. Since that time, she has had nausea. She also has had worsening regurgitation to the point that she cannot even really eat small bites of food. She underwent an EGD with Dr. Wall on 10/09/2020 which opened an intrinsic stenosis, though it still had moderate narrowing even after the dilation. [facility] and due to her low blood pressure, she was sent to the ED. Allergies Allergy/AdvReac Type Severity Reaction Status Date / Time lisinopril AdvReac Mild Cough Verified 12/07/20 17:26 Home Medications Medication Instructions Recorded Confirmed Type magnesium oxide 400 mg PO DAILY #30 tab 08/17/20 12/07/20 Rx nitroglycerin 0.4 mg sublingual 0.4 mg SUBLINGUAL Q3H PRN #20 tab 09/13/20 12/07/20 Rx tablet pantoprazole 40 mg tablet,delayed 40 mg PO BID #180 tab 11/06/20 12/07/20 Rx release dronabinol 5 mg PO TID 11/27/20 12/07/20 History omeprazole 20 mg PO DAILY PRN 11/27/20 12/07/20 History sertraline 50 mg PO DAILY 11/27/20 12/07/20 History sucralfate 1 g PO ACHS 11/27/20 12/07/20 History diltiazem HCl 60 mg PO BID PRN 12/07/20 12/07/20 History hydrocodone-acetaminophen 7.5 ml PO Q6H PRN 12/07/20 12/07/20 History ondansetron 8 mg PO Q6H PRN 12/07/20 12/07/20 History Past Med/Surg History Medical History Anemia Anxiety Arthritis Bilat Knees & lower back Depression Dysphagia Esophageal spasm GERD (gastroesophageal reflux disease) Hypercholesterolemia Pancytopenia Restless leg syndrome Small cell lung cancer (04/21/20) Summer 2019. no surgical intervention Trimalleolar fracture of left ankle Surgical History H/O arthroscopic knee surgery 1998 RIGHT/ 2011 LEFT H/O tubal ligation 1991 H/O: section x2 1987 & 1982 History of bronchoscopy (04/21/20) 04/21/2020 - with positive biopsy History of esophagogastroduodenoscopy (EGD) History of excision of pilonidal cyst 1987 History of open reduction and internal fixation (ORIF) procedure (07/2020) L ankle secondary to fracture History of tooth extraction molars Port-A-Cath in place (05/25/20) Insertion of Mediport Left Subclavian with Fluoroscopy Dr. Ramos 05/25/2020 S/P carpal tunnel release 1989's / 2014 LEFT S/P tonsillectomy Age 4 Family History Mother , Passed age 64 of pancreatic cancer Cancer Hypertension Father Hearing loss Grandmother (Maternal) , Passed age 79 of Stomach Cancer No problems noted. Uncle , Passed in 80's of Colorectal Cancer No problems noted. Brother No problems noted. Brother No problems noted. Sister No problems noted. Grandfather (Maternal) , Passed age 89 of Bladder Cancer No problems noted. Son No problems noted. Daughter No problems noted. Grandmother Cancer Grandfather Cancer Other No family history of adverse response to anesthesia No family history of allergies No family history of bleeding disorder Denies family history of Ovarian cancer Heart disease Breast cancer Lung cancer Asthma Social History Smoking Status: Former smoker Tobacco Type: Cigarettes Age Started Using Tobacco: 20; Age Quit Using Tobacco: 60; packs per day: 1; Years Smoked: 40; Second Hand Exposure: No; Hx Alcohol Use: No Hx Substance Use: No Preferred Language: Irish Communication Ability: Effective Visual Impairment: No Limitations Hearing Ability: Normal Air Bag Builder Required: No Beliefs That Will Affect Care: None marital status: Current Living Situation: Spouse current occupational status: employed 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 How many Children do You have: 2 Feels Safe at Home: Yes Childhood Exposure to Second-Hand Smoke: Yes caffeine: Yes (ice tea) during the past year weight has: remained stable Dental Care, Regularly: Yes Physical Activity Frequency: Does not Exercise Seatbelt Use: always Sunscreen Use: No Assistive Devices: None Review of Systems Review of Systems: All systems reviewed & are unremarkable except as noted in HPI & below Physical Exam Constitutional: WD/WN, vitals as above + acute distress Eyes: EOM intact bilaterally; no conjunctival abnormality ENMT: external ear and nose normal, oropharynx normal Neck: trachea midline, no thyromegaly normal visual inspection Respiratory: normal respiratory effort, lungs clear to auscultation no respiratory distress Cardiovascular: RRR, no murmur, no edema Gastrointestinal (Abdomen): Inspection/Auscultation: abdomen normal to inspection and normal bowel sounds; abdomen not distended Percussion/Palpation: abdomen soft; abdomen nontender, no guarding and abdomen not rigid Musculoskeletal: no cyanosis or clubbing, extremities motor strength 5/5 Skin: no rashes, warm and dry Neurologic: moves all extremities and awake Psychiatric: Orientation: alert, oriented to person and cooperative Results & Data Results & Data ([facility]) Vital Signs (Past 12 Hours) Vital Signs Temp Pulse Resp BP Pulse Ox 12/07/20 16:00 98 12/07/20 15:00 36.8 C 84 16 87/54 L 93 Code Status & VTE Plan VTE Prophylaxis Plan VTE Prophylaxis will be ordered: Yes PG Care Time/CCT Total # of Minutes Spent Total Time Spent with Patient: Total time spent is greater than 50% in coordination of care (as documented) at patient's floor/unit and/or counseling patient: Coding Level of Care Code 25590 Initial Inpt Care Lvl 3 Diagnoses Anemia D64.9 Hypotension I95.9 Hypotension type: unspecified hypotension type Esophageal stenosis K22.2 CKD (chronic kidney disease) stage 3, GFR 30-59 ml/min N18.30 Small cell lung cancer C34.90 Acute ITP D69.3 DVT prophylaxis Z29.9 (1) Hypotension Hypotension type: unspecified hypotension type Qualified Code(s): I95.9 - Hypotension, unspecified
[2020-12-07] MEDS ORDERED: PROCHLORPERAZINE 10 MG in SYRINGE 8 ML IV PRN (20:52)
[2020-12-07] MEDS ORDERED: SODIUM CHLORIDE 0.9% 250 ML IV PRN (20:52)
[2020-12-07] MEDS ORDERED: ACETAMINOPHEN 325 MG TAB PO PRN (20:52)
[2020-12-07] MEDS: PANTOprazole 40 MG TAB PO SCH (21:54)
[2020-12-07] MEDS: HEPARIN SOD 5,000 UNIT/0.5 ML VIAL SQ SCH (21:55)
[2020-12-07] MEDS: PROCHLORPERAZINE 10 MG in SYRINGE 8 ML IV PRN (22:00)
[2020-12-07] MEDS: HEPARIN 100 UNIT/ML 5ML FLUSH FLUSH PRN (22:00)
[2020-12-08] MEDS: HEPARIN 100 UNIT/ML 5ML FLUSH FLUSH PRN ×4 (03:26→17:33)
[2020-12-08] MEDS: PROCHLORPERAZINE 10 MG in SYRINGE 8 ML IV PRN (07:56)
[2020-12-08 08:12] LABS: Hematocrit (blood only) 31.5 % (37-47); Hemoglobin 10.5 g/dL (12.0-16.0); Mean Corpuscular Hemoglobin 30.3 pg (25-34); Mean Corpuscular Hgb Conc 33.3 g/dL (32-36); Mean Corpuscular Volume 90.8 fL (80-100); Mean Platelet Volume 9.6 fL (7.4-10.4); Platelet Count 143 K/uL (130-400); RDW Coefficient of Variation 19.1 % (11.5-14.5); RDW Standard Deviation 63.6 fL (36.4-46.3); Red Blood Count 3.47 M/uL (4.2-5.4); White Blood Count 6.39 K/uL (4.8-10.8)
[2020-12-08 08:17] LABS: BUN Creatinine Ratio 12.7 (10-20); Calcium 8.8 mg/dl (8.5-10.1); Creatinine Clr Calc Pharmacy 40.4 ml/min; Est GFR (African American) 57.7; Est GFR (Non-African American) 49.8; Magnesium 2.3 mg/dl (1.8-2.4); Phosphorus 3.4 mg/dl (2.5-4.9); Potassium 4.2 mmol/L (3.5-5.1)
[2020-12-08] MEDS ORDERED: SERTRALINE HCL 50 MG TABLET PO SCH (09:00)
--- NOTE | 2020-12-08 09:42 | Gastrointestinal Consultation ---
Date of Consultation December 08, 2020 Assessment & Plan (1) Esophageal stenosis: (2) Dysphagia: 1. NPO for now. 2. EGD with Dr. Wall today for therapeutic dilation. 3. Continue Pantoprazole 40 mg BID. 4. Further recommendations will be made pending results of testing. Supervising Physician Co-Signing Physician Notes I personally evaluated the patient and agree with the findings as documented by VALE Ly Exam: abd: soft, nt, nd Proceed with EGD and dilation risks/benefits and procedure discussed with patient, who agrees to proceed History of Present Illness Reason for Consultation: Dysphagia Requesting Physician: Dr. Ardon Attending Physician: Mo Hall History of Present Illness Patient is a pleasant 60 year-old female with a history of non small cell lung cancer recently undergoing both chemo and radiation treatments admitted with symptoms of nausea and vomiting as well fatigue associated with anemia. She did have an upper endoscopy with Dr Wall on 10/09/20. At that time, she did have a therapeutic dilation of an esophageal stricture. She has also been noted to have esophageal spasms and is tolerating only full liquid consistencies. No solid food. She is currently due to have a repeat EGD with dilation. Due to this, GI was consulted. She has been made NPO. Patient continues BID PPI. Allergies Allergy/AdvReac Type Severity Reaction Status Date / Time lisinopril AdvReac Mild Cough Verified 12/08/20 11:33 Home Medications Medication Instructions Recorded Confirmed Type magnesium oxide 400 mg PO DAILY #30 tab 08/17/20 12/07/20 Rx nitroglycerin 0.4 mg sublingual 0.4 mg SUBLINGUAL Q3H PRN #20 tab 09/13/20 12/07/20 Rx tablet pantoprazole 40 mg tablet,delayed 40 mg PO BID #180 tab 11/06/20 12/07/20 Rx release dronabinol 5 mg PO TID 11/27/20 12/07/20 History omeprazole 20 mg PO DAILY PRN 11/27/20 12/07/20 History sertraline 50 mg PO DAILY 11/27/20 12/07/20 History sucralfate 1 g PO ACHS 11/27/20 12/07/20 History diltiazem HCl 60 mg PO BID PRN 12/07/20 12/07/20 History hydrocodone-acetaminophen 7.5 ml PO Q6H PRN 12/07/20 12/07/20 History ondansetron 8 mg PO Q6H PRN 12/07/20 12/07/20 History Patient History Medical History Anemia Anxiety Arthritis Bilat Knees & lower back CKD (chronic kidney disease) stage 3, GFR 30-59 ml/min Depression Dysphagia Esophageal spasm GERD (gastroesophageal reflux disease) Hypercholesterolemia Pancytopenia Restless leg syndrome Small cell lung cancer (04/21/20) Summer 2019. no surgical intervention Trimalleolar fracture of left ankle Surgical History H/O arthroscopic knee surgery 1998 RIGHT/ 2010 LEFT H/O tubal ligation 1991 H/O: section x2 1987 & 1982 History of bronchoscopy (04/21/20) 04/21/2020 - with positive biopsy History of esophagogastroduodenoscopy (EGD) History of excision of pilonidal cyst 1987 History of open reduction and internal fixation (ORIF) procedure (07/2020) L ankle secondary to fracture History of tooth extraction molars Port-A-Cath in place (05/25/20) Insertion of Mediport Left Subclavian with Fluoroscopy Dr. Ramos 05/25/2020 S/P carpal tunnel release 1989's / 2014 LEFT S/P tonsillectomy Age 4 Family History Mother , Passed age 64 of pancreatic cancer Cancer Hypertension Father Hearing loss Grandmother (Maternal) , Passed age 79 of Stomach Cancer No problems noted. Uncle , Passed in 80's of Colorectal Cancer No problems noted. Brother No problems noted. Brother No problems noted. Sister No problems noted. Grandfather (Maternal) , Passed age 89 of Bladder Cancer No problems noted. Son No problems noted. Daughter No problems noted. Grandmother Cancer Grandfather Cancer Other No family history of adverse response to anesthesia No family history of allergies No family history of bleeding disorder Denies family history of Ovarian cancer Heart disease Breast cancer Lung cancer Asthma Social History Smoking Status: Former smoker Tobacco Type: Cigarettes Age Started Using Tobacco: 20; Age Quit Using Tobacco: 60; packs per day: 1; Years Smoked: 40; Second Hand Exposure: No; Hx Alcohol Use: Yes Alcohol type: wine and hard liquor Alcohol Intake Frequency: Monthly or Less Hx Substance Use: No Preferred Language: Gibraltarian Communication Ability: Effective Visual Impairment: No Limitations Hearing Ability: Normal Primary Care Md Required: No Beliefs That Will Affect Care: None marital status: Current Living Situation: Spouse current occupational status: employed 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 How many Children do You have: 2 Feels Safe at Home: Yes Childhood Exposure to Second-Hand Smoke: Yes caffeine: Yes (ice tea) during the past year weight has: remained stable Dental Care, Regularly: Yes Physical Activity Frequency: Does not Exercise Seatbelt Use: always Sunscreen Use: No Assistive Devices: Glasses Review of Systems Constitutional: as per Subjective / HPI; no fever and no chills Respiratory: no cough and no dyspnea Cardiovascular: no chest pain and no palpitations Gastrointestinal: as per Subjective / HPI Physical Exam Constitutional: WD/WN, vitals as above well developed and well nourished Neck: normal visual inspection Respiratory: normal respiratory effort, lungs clear to auscultation Cardiovascular: Rate/Rhythm: regular rate and regular rhythm Gastrointestinal (Abdomen): normal bowel sounds, soft, nontender, no hepatosplenomegaly Psychiatric: A+Ox3, euthymic affect Results & Data ([facility]) Vital Signs (Past 12 Hours) Vital Signs Temp Pulse Pulse Resp BP BP Pulse Ox 12/08/20 07:51 36.7 C 71 16 127/69 91 12/08/20 03:29 36.6 C 77 18 122/72 90 12/08/20 02:42 36.8 C 67 18 110/62 94 12/08/20 01:42 36.6 C 69 16 118/78 94 12/08/20 01:12 36.6 C 69 16 105/63 91 12/08/20 00:56 36.9 C 67 16 110/58 L 90 12/08/20 00:39 36.7 C 77 16 110/66 92 12/08/20 00:19 36.6 C 69 18 126/69 94 12/07/20 23:23 36.8 C 82 16 118/70 92 12/07/20 22:25 37.1 C 72 16 108/63 92 12/07/20 21:53 36.6 C 76 18 126/74 94 12/07/20 21:38 36.8 C 72 18 117/72 94 Laboratory Results Abnormal lab results 12/07/20 12/07/20 12/07/20 Range/Units 15:41 15:41 15:53 RBC 2.16 L (4.2-5.4) M/uL Hgb 6.9 L* (12.0-16.0) g/dL Hct 20.7 L* (37-47) % RDW Std Deviation 63.3 H (36.4-46.3) fL RDW Coeff of Sebastián 18.0 H (11.5-14.5) % Lymph # (Auto) 0.72 L (1.2-3.4) K/uL Immature Gran # (Auto) 0.04 H (0.00-0.02) K/uL Chloride (98-107) mmol/L BUN 20 H (7-18) mg/dl Creatinine 1.50 H (0.6-1.2) mg/dl Calcium 8.4 L (8.5-10.1) mg/dl Iron 20 L (35-150) mcg/dl TIBC 73 L (250-450) mcg/dl Transferrin 78 L (200-360) mg/dl Ferritin 1608.4 H (8-388) ng/ml AST 8 L (15-37) U/L ALT 11 L (12-78) U/L Total Protein 5.4 L (6.4-8.2) gm/dl Albumin 2.5 L (3.4-5.0) gm/dl Cortisol AM Sample (4.3-22.4) mcg/dl Crossmatch See Detail 12/08/20 12/08/20 12/08/20 Range/Units 07:31 07:31 07:31 RBC 3.47 L (4.2-5.4) M/uL Hgb 10.5 L D (12.0-16.0) g/dL Hct 31.5 L (37-47) % RDW Std Deviation 63.6 H (36.4-46.3) fL RDW Coeff of Sebastián 19.1 H (11.5-14.5) % Lymph # (Auto) (1.2-3.4) K/uL Immature Gran # (Auto) (0.00-0.02) K/uL Chloride 109 H (98-107) mmol/L BUN (7-18) mg/dl Creatinine (0.6-1.2) mg/dl Calcium (8.5-10.1) mg/dl Iron (35-150) mcg/dl TIBC (250-450) mcg/dl Transferrin (200-360) mg/dl Ferritin (8-388) ng/ml AST (15-37) U/L ALT (12-78) U/L Total Protein (6.4-8.2) gm/dl Albumin (3.4-5.0) gm/dl Cortisol AM Sample 27.36 H (4.3-22.4) mcg/dl Crossmatch PG Care Time/CCT Total # of Minutes Spent Total Time Spent with Patient: Total time spent is greater than 50% in coordination of care (as documented) at patient's floor/unit and/or counseling patient: Coding Level of Care Code 98964 Office/OBS Consult Lvl 3 Diagnoses Esophageal stenosis K22.2 Dysphagia R13.10
--- NOTE | 2020-12-08 12:18 | Anesthesiology Consultation ---
Date of Service December 08, 2020 Assessment & Plan (1) Encounter for pre-operative examination: Chart Review Chart Review: Acceptable Risk for Surgery and Patient NOT seen in Pre Admission Testing Consults Requested none ASA ASA3 Proposed Anesthesia Anesthesia Type: MAC Risk / Benefits Reviewed With: PT / POA / Parent / Guardian, Accepts Plan and Informed Consent Obtained History Surgery Operation Date: 12/08/20 16:00 Proposed Procedures p Esophagogastroduodenoscopy Dr. Mae Wall MD Height/Weight Height: 5 ft 2 in Weight: 58.6 kg Allergies Allergy/AdvReac Type Severity Reaction Status Date / Time lisinopril AdvReac Mild Cough Verified 12/08/20 11:33 Medications Home Medications Medication Instructions Recorded Confirmed Last Taken magnesium oxide 400 mg PO DAILY #30 tab 08/17/20 12/07/20 11/27/20 nitroglycerin 0.4 mg sublingual 0.4 mg SUBLINGUAL Q3H PRN #20 tab 09/13/20 12/07/20 10/06/20 19:00 tablet pantoprazole 40 mg tablet,delayed 40 mg PO BID #180 tab 11/06/20 12/07/20 12/07/20 08:00 release dronabinol 5 mg PO TID 11/27/20 12/07/20 12/07/20 08:00 omeprazole 20 mg PO DAILY PRN 11/27/20 12/07/20 Unknown sertraline 50 mg PO DAILY 11/27/20 12/07/20 12/05/20 sucralfate 1 g PO ACHS 11/27/20 12/07/20 11/27/20 diltiazem HCl 60 mg PO BID PRN 12/07/20 12/07/20 12/07/20 08:00 hydrocodone-acetaminophen 7.5 ml PO Q6H PRN 12/07/20 12/07/20 Unknown ondansetron 8 mg PO Q6H PRN 12/07/20 12/07/20 Unknown Active Medications Generic Name Dose Route Start Last Admin Trade Name Freq PRN Reason Stop Dose Admin Hydrocodone Bitart/Acetaminophen 7.5 ml 12/07/20 21:25 12/07/20 21:53 Acetaminophen/Hydrocodone Elix 15 Ml/Cup Udp PO 12/21/20 21:24 7.5 ml Q6H PRN Administration Esophagitis Pain Diltiazem HCl 60 mg 12/07/20 21:00 12/07/20 21:55 Diltiazem Sr 60 Mg Cap PO 01/06/21 20:59 60 mg BID DELANEY Administration Heparin Sodium (Porcine) 5,000 units 12/07/20 21:00 12/07/20 21:55 Heparin Sod 5,000 Unit/0.5 Ml Vial SQ 01/06/21 20:59 5,000 units Q12 DELANEY Administration Heparin Sodium (Porcine) 5 ml 12/07/20 21:05 12/08/20 08:00 Heparin 100 Unit/Ml 5ml Flush FLUSH 01/06/21 21:04 5 ml PRN PRN Administration Flush Prochlorperazine 10 mg/ 10 mls @ 5 mls/min 12/07/20 21:45 12/08/20 07:56 Syringe IV 01/06/21 20:51 5 mls/min Q6H PRN Administration Nausea And Vomiting Pantoprazole Sodium 40 mg 12/07/20 21:00 12/07/20 21:54 Pantoprazole 40 Mg Tab PO 01/06/21 20:59 40 mg BID DELANEY Administration NPO Date Last Intake of Fluids: 12/08/20 Time Last Intake of Fluids: 07:00 Last Intake of Fluids Comment: sip of water Date Last Intake of Solids: 12/05/20 Time Last Intake of Solids: 18:00 Last Intake of Solids Comment: only can tolerate full liquid diet Past Medical History Medical History Anemia Anxiety Arthritis Bilat Knees & lower back CKD (chronic kidney disease) stage 3, GFR 30-59 ml/min Depression Dysphagia Esophageal spasm GERD (gastroesophageal reflux disease) Hypercholesterolemia Pancytopenia Restless leg syndrome Small cell lung cancer (04/21/20) Summer 2019. no surgical intervention Trimalleolar fracture of left ankle Exercise / Class Metabolic Activity II 4-5 Yardwork/Stairs/Walk up hill Past Family History Family History Mother , Passed age 64 of pancreatic cancer Cancer Hypertension Father Hearing loss Grandmother (Maternal) , Passed age 79 of Stomach Cancer No problems noted. Uncle , Passed in 80's of Colorectal Cancer No problems noted. Brother No problems noted. Brother No problems noted. Sister No problems noted. Grandfather (Maternal) , Passed age 89 of Bladder Cancer No problems noted. Son No problems noted. Daughter No problems noted. Grandmother Cancer Grandfather Cancer Other No family history of adverse response to anesthesia No family history of allergies No family history of bleeding disorder Denies family history of Ovarian cancer Heart disease Breast cancer Lung cancer Asthma Past Surgical History Surgical History H/O arthroscopic knee surgery 1998 RIGHT/ 2010 LEFT H/O tubal ligation 1991 H/O: section x2 1987 & 1982 History of bronchoscopy (04/21/20) 04/21/2020 - with positive biopsy History of esophagogastroduodenoscopy (EGD) History of excision of pilonidal cyst 1987 History of open reduction and internal fixation (ORIF) procedure (07/2020) L ankle secondary to fracture History of tooth extraction molars Port-A-Cath in place (05/25/20) Insertion of Mediport Left Subclavian with Fluoroscopy Dr. Ramos 05/25/2020 S/P carpal tunnel release 1989's RT / 2014 LEFT S/P tonsillectomy Age 4 Past Anesthesia History No Hx of Anesthesia Complications and No Family Hx of Anesthesia Complications History of PONV No Hx of PONV and No Hx of Motion Sickness Social History Smoking Status: Former smoker tobacco type: cigarettes Hx Alcohol Use: Yes Alcohol type: wine and hard liquor alcohol intake frequency: holidays/special occasions only Hx Substance Use: No substance use type: does not use Physical Exam Vital Signs Last Vital Signs Temp 36.2 C L 12/08/20 11:35 Pulse 79 12/08/20 11:35 Resp 16 12/08/20 11:35 BP 113/80 12/08/20 11:35 Pulse Ox 94 12/08/20 11:35 ENMT Mouth: no dentition abnormality Thyromental Distance: > or= 3.5 Finger Breadths Mallampati Class: II Neck normal visual inspection Respiratory normal respiratory effort Auscultation: lungs clear to auscultation bilaterally Cardiovascular Rate/Rhythm: regular rate and regular rhythm Psychiatric Orientation: alert Testing Laboratory Results 12/08/20 07:31 12/08/20 07:31 PT 10.2 Seconds (9.0-12.0) 12/07/20 15:41 INR 1.0 (0.9-1.1) 12/07/20 15:41 Urine Color Yellow 12/07/20 17:04 Urine Appearance Clear (Clear) 12/07/20 17:04 Urine pH 6.0 (4.5-7.5) 12/07/20 17:04 Ur Specific [place] 1.013 (1.000-1.030) 12/07/20 17:04 Urine Protein Negative (Negative) 12/07/20 17:04 Urine Glucose (UA) Negative (Negative) 12/07/20 17:04 Urine Ketones Negative (Negative) 12/07/20 17:04 Urine Nitrite Negative (Negative) 12/07/20 17:04 Ur Leukocyte Esterase Negative (Negative) 12/07/20 17:04 Blood Type B Positive 12/07/20 15:53 Antibody Screen NEGATIVE 12/07/20 15:53
[2020-12-08] MEDS ORDERED: LIDOCAINE HCL 2% 2 ML VIAL/AMP(20MG/ML) INFIL ONE (12:31)
[2020-12-08] MEDS ORDERED: ONDANSETRON INJ 2 MG/ML 2 ML VIAL ONE (12:31)
[2020-12-08] MEDS ORDERED: PROPOFOL IV EMULSION 10 MG/ML 20 ML VIAL IV ONE (12:31)
--- NOTE | 2020-12-08 12:43 | GI REPORT ---
Patient Name: Lori Tipton Procedure Date: 12/08/2020 11:51 AM Date of : 1960 Admit Type: Inpatient Age: 60 Gender: Female Attending MD: Arturo Wall MD Procedure: Upper GI endoscopy Providers: Arturo Wall MD Referring MD: Lucio Olmos Do, Jonathan R. Siuta Indications: Dysphagia Medicines: Monitored Anesthesia Care Complications: No immediate complications. Estimated blood loss: None. Estimated Blood Loss: Estimated blood loss: none. Procedure: Pre-Anesthesia Assessment: - Prior Anticoagulants: The patient has taken no previous anticoagulant or antiplatelet agents. - ASA Grade Assessment: II - A patient with mild systemic disease. After obtaining informed consent, the endoscope was passed under direct vision. Throughout the procedure, the patient's blood pressure, pulse, and oxygen saturations were monitored continuously. The Endoscope was introduced through the mouth, and advanced to the second part of duodenum. The upper GI endoscopy was accomplished without difficulty. The patient tolerated the procedure well. Findings: One benign-appearing, intrinsic moderate (circumferential scarring or stenosis; an endoscope may pass) stenosis was found. The stenosis was traversed. A TTS dilator was passed through the scope. Dilation with a 12-13.5-15 mm balloon dilator was performed to 15 mm. The dilation site was examined following endoscope reinsertion and showed mild mucosal disruption. Estimated blood loss: none. The entire examined stomach was normal. The duodenal bulb and second portion of the duodenum were normal. Impression: - Benign-appearing esophageal stenosis. Dilated. - Normal stomach. - Normal duodenal bulb and second portion of the duodenum. - No specimens collected. Recommendation: - Resume previous diet today. - Repeat upper endoscopy in 1 month for surveillance. - Return patient to [facility] for ongoing care. Arturo Wall MD 12/08/2020 12:43:00 PM This report has been signed electronically. Note Initiated On: 12/08/2020 11:51 AM Number of Addenda: 0 I attest to the content of the Intraoperative Record and orders documented therein, exceptions below {[id number]}
[2020-12-08 13:28] VITALS: TEMP 97.7
--- NOTE | 2020-12-08 13:40 | Anesthesiology Progress Note ---
Date of Service December 08, 2020 Anesthesia Post Procedure Vital Signs Vital Signs: Temp Pulse Pulse Pulse Resp BP BP 12/08/20 13:27 36.5 C 75 18 124/69 12/08/20 13:04 71 16 126/51 L 12/08/20 12:49 63 16 130/71 12/08/20 12:34 68 16 116/59 L 12/08/20 11:35 36.2 C L 79 16 113/80 12/08/20 07:51 36.7 C 71 16 127/69 12/08/20 03:29 36.6 C 77 18 122/72 12/08/20 02:42 36.8 C 67 18 110/62 12/08/20 01:42 36.6 C 69 16 118/78 12/08/20 01:12 36.6 C 69 16 105/63 12/08/20 00:56 36.9 C 67 16 110/58 L 12/08/20 00:39 36.7 C 77 16 110/66 12/08/20 00:19 36.6 C 69 18 126/69 12/07/20 23:23 36.8 C 82 16 118/70 12/07/20 22:25 37.1 C 72 16 108/63 12/07/20 21:53 36.6 C 76 18 126/74 12/07/20 21:38 36.8 C 72 18 117/72 12/07/20 21:17 36.8 C 77 18 107/67 12/07/20 20:30 36.7 C 83 16 130/71 12/07/20 20:24 64 18 123/66 12/07/20 18:30 62 21 103/55 L 12/07/20 18:00 66 19 102/63 12/07/20 17:30 62 14 111/59 L 12/07/20 16:30 65 24 103/43 L 12/07/20 16:00 65 16 95/52 L 12/07/20 15:30 60 26 H 100/54 L 12/07/20 15:00 36.8 C 84 16 87/54 L Pulse Ox 12/08/20 13:27 96 12/08/20 13:04 96 12/08/20 12:49 96 12/08/20 12:34 91 12/08/20 11:35 94 12/08/20 07:51 91 12/08/20 03:29 90 12/08/20 02:42 94 12/08/20 01:42 94 12/08/20 01:12 91 12/08/20 00:56 90 12/08/20 00:39 92 12/08/20 00:19 94 12/07/20 23:23 92 12/07/20 22:25 92 12/07/20 21:53 94 12/07/20 21:38 94 12/07/20 21:17 94 12/07/20 20:30 95 12/07/20 20:24 96 12/07/20 18:30 97 12/07/20 18:00 95 12/07/20 17:30 96 12/07/20 16:30 97 12/07/20 16:00 98 12/07/20 15:30 96 12/07/20 15:00 93 Transfer of Care Handoff Completed per policy Notes Mental Status: alert / awake / arousable Patient Amnestic to Procedure: Yes Nausea / Vomiting: adequately controlled Pain: adequately controlled Airway Patency, RR, SpO2: stable & adequate BP & HR: stable & adequate Hydration State: stable & adequate Anesthetic Complications: no major complications apparent
[2020-12-08] MEDS: HEPARIN SOD 5,000 UNIT/0.5 ML VIAL SQ SCH (15:37)
[2020-12-08] MEDS: PANTOprazole 40 MG TAB PO SCH (15:38)
[2020-12-08 15:57] VITALS: BP 120/71; O2SAT 94
--- NOTE | 2020-12-08 17:27 | Discharge Summary ---
Date of Service date of admission - December 07, 2020 date of discharge - December 08, 2020 Admission HPI Per Admitting Provider 60yo F w/ hx of small cell lung cancer who presents with nausea, vomiting, and anemia. Per the patient and her , she was doing well prior to whole brain prophylactic radiation therapy. She had finished her chemo (etoposide/carboplatin) in 07/2020. She and her report her appetite was improving with the dronabinol. She underwent WBPRT for 10 days, with the last day about 2 weeks prior. Since that time, she has had nausea. She also has had worsening regurgitation to the point that she cannot even really eat small bites of food. She underwent an EGD with Dr. Wall on 10/09/2020 which opened an intrinsic stenosis, though it still had moderate narrowing even after the dilation. [facility] and due to her low blood pressure, she was sent to the ED. Principal Diagnosis 1. esophageal stenosis s/p esophageal dilatation 2. anemia s/p 2 units PRBCs Discharge Exam Constitutional no acute distress and no altered mental status ENMT Mouth: + oral mucosal abnormality (Thrush plaques ) Respiratory normal respiratory effort, lungs clear to auscultation Cardiovascular Rate/Rhythm: regular rate and regular rhythm Heart Sounds: normal S1 and normal S2; no murmur Vessels: posterior tibial pulses present and dorsalis pedis pulses present; no JVD Extremities: no edema Gastrointestinal (Abdomen) normal bowel sounds, soft, nontender, no hepatosplenomegaly Psychiatric Orientation: alert and oriented x 3 Discharge Data Allergies Allergy/AdvReac Type Severity Reaction Status Date / Time lisinopril AdvReac Mild Cough Verified 12/08/20 11:33 Consultations [facility] Gastroenterology Procedures Performed Operation Date: 12/08/20 16:00 Actual Procedures p EGD Dilatation - Arturo Wall MD Esophageal stenosis found. Dilatation performed. 2 units PRBCs transfusion Hospital Course (1) Esophageal stenosis: Presented with nausea, vomiting, and regurgitation. Had had EGD in 09/2020 at which time esophageal stenosis was found and dilated. [facility] GI was consulted this admission, and Dr Wall performed EGD. Esophageal stenosis was found was once again and she was dilated. Post-EGD she was restarted on a diet and tolerated this without upper GI symptoms. She will continue on diltiazem prn & nitro prn (for esophageal spasm), PPI, and carafate. (2) Hypotension: Likely 2nd to anemia and volume depletion. s/p 2 units PRBCs. s/p IV fluids. Low BP resolved with the above. Cortisol level was checked and was normal. (3) Anemia: 2nd to anemia of chronic disease (lung ca). Lowest Hb 6.9 -- s/p 2 units PRBCs. Discharge Hb 10.5. No evidence of GI bleeding while here. Ferritin and transferrin sat suggested adequate iron stores. B12/folate were wnl. (4) GERD (gastroesophageal reflux disease): Continue PPI + Carafate. (5) Small cell lung cancer: Follows with [facility]. LUCIA small cell lung cancer. s/p chemo and radiation. s/p prophylactic whole brain radiation. (6) Candidiasis of mouth and esophagus: Mouth - nystatin solution 5cc qid. Total Time Total Time Spent Total Time Spent (In Minutes): 40 Total Time Includes: Examination of the Patient, Discharge Planning, Medication Reconciliation and Communication With Other Providers Discharge Plan Discharge Items Patient Disposition: Home - Self-Care Reason For Visit: ANEMIA, DIFFICULTY SWALLOWING Discharge Diagnosis: 1. ANEMIA (low red cell count) - improved following blood transfusion. Hemoglobin level on discharge 10.5. Anemia likely due to cancer, etc. 2. Difficulty swallowing - EGD (upper endoscopy) done by Dr Wall, [facility]. Narrowing found in the esophagus. This area was dilated successfully. Repeat EGD in 1 month. Activity: Resume your previous activity Non-emergency contact: Primary Care Provider, Sericulture Teacher and Oncologist Call non-emergency contact if: you have any medication questions, your symptoms worsen, your pain is not controlled and you have a fever Follow-up/Referrals: Jane Ortiz DO [Primary Care Provider] - 12/15/20 1:40 pm (With Crissy Wild PA-C.) Arturo Wall MD [Physician] - (1 month for repeat EGD. Dr. Staley office will schedule.) Diet: Full liquid Diet Comment: advance diet as tolerated; avoid [id number] foods Addtl Attending Provider Instructions: Mrs Tipton, You were treated for the problems listed above in "discharge diagnoses." Your blood counts responded very nicely to the blood transfusion. Additionally, your esophagus was "stretched" or "dilated" by Dr Wall due to a narrowing found. The narrowing is likely from prior radiation treatments for your cancer. It is hoped that the stretching allows you to eat/drink more comfortably and keep things down. Continue full liquids tonight (juice, water, cream-based soup, milk products, jello, Azeri ice, etc). Then, starting tomorrow morning, advance your diet as tolerated. Again avoid foods that are difficult to chew and swallow. Dr Wall wishes to see you in 1 month to repeat the dilation procedure. Lastly, new medications - * nystatin liquid for the yeast on the tongue; 5ml swish/spit four times daily for about 1 week * multivitamin daily * thiamine 200mg daily x 14 days Follow-up - * Dr Ortiz within 1 week * Dr Wall in 4 weeks * your cancer doctor as scheduled Return to [facility] if - * you have fevers over 100 degrees * you have worsening chest pain or abdominal pain * you have persistent vomiting * any other concerns Feel better! -Dr Hall Pending Studies at Discharge: No Stand-Alone Forms: My [facility] [employer], Smoking Cessation Medications and DC Order Prescriptions: New thiamine HCl (vitamin B1) [Vitamin B-1] 100 mg Tablet 200 mg PO DAILY 14 Days Qty: 28 RF: 0 Certavite-Antioxidant 18-400 mg-mcg Tablet 1 tab PO QAM Qty: 90 RF: 1 nystatin 100,000 unit/mL suspension 5 ml PO QID 7 Days Qty: 200 RF: 0 Continued nitroglycerin [Nitrostat] 0.4 mg tablet, sublingual 0.4 mg sublingual Q3H PRN (Reason: Epigastric pain) Qty: 20 RF: 0 pantoprazole [Protonix] 40 mg tablet,delayed release (DR/EC) 40 mg PO BID Qty: 180 RF: 3 magnesium oxide 400 mg magnesium tablet 400 mg PO DAILY Qty: 30 RF: 2 dronabinol 5 mg capsule 5 mg PO TID RF: 0 sucralfate 1 gram tablet 1 g PO ACHS RF: 0 sertraline 50 mg tablet 50 mg PO DAILY RF: 0 omeprazole 20 mg capsule,delayed release(DR/EC) 20 mg PO DAILY PRN (Reason: Acid Reflux) RF: 0 ondansetron 8 mg tablet,disintegrating 8 mg PO Q6H PRN (Reason: Nausea And Vomiting) RF: 0 diltiazem HCl 60 mg capsule,extended release 12 hr 60 mg PO BID PRN (Reason: Esophageal Spasms) RF: 0 hydrocodone-acetaminophen 7.5-325 mg/15 mL solution 7.5 ml PO Q6H PRN (Reason: Esophagitis Pain) RF: 0 Discharge Orders: Discharge Order (Routine); Ordered 12/08/20 Ordered By: Mo Hall Admission Data Admit Date/Time: 12/07/20 18:13 Attending Provider: Mo Hall Admit Provider: Marky Ardon Primary Care Provider: Jane Ortiz Other Providers: Mo Valadez ; Sherman Martinez Other Interventions: Discharge Summary Assessment (RN) Last Done: 12/08/20 17:36 Coding Level of Care Code D/C Day Management >30 mins Diagnoses Esophageal stenosis K22.2 Hypotension I95.9 Anemia D64.9 GERD (gastroesophageal reflux disease) K21.9 Small cell lung cancer C34.90 Candidiasis of mouth and esophagus B37.81; B37.0
[2020-12-08 17:37] VITALS: PULSE 71
[2020-12-08] MEDS ORDERED: THIAMINE HCL 100 MG TAB PO SCH (21:00)
--- NOTE | 2020-12-08 23:44 | Electrocardiogram Report ---
Test Reason : Blood Pressure : / mmHG Vent. Rate : 060 BPM Atrial Rate : 060 BPM P-R Int : 166 ms QRS Dur : 096 ms QT Int : 420 ms P-R-T Axes : 042 058 057 degrees QTc Int : 420 ms Normal sinus rhythm Normal ECG When compared with ECG of 27-NOV-2020 09:12, No significant change was found Confirmed by Jordi Tobias ([id number]) on 12/08/2020 11:44:05 PM Referred By: Lucio Olmos Confirmed By:Jordi Tobias
[2020-12-09] MEDS ORDERED: CEROVITE ADV FORMULA TAB PO SCH (09:00)
== END 2020-12-08 18:05 | disposition home or self-care (01) | DRG 392 ==
LOC: ED 14:58 → 3E 18:13 → SUATTDRO 18:13 → 3E 20:24

== ENCOUNTER 2021-06-05 22:03 | Inpatient (IN) ==
[2021-06-06] MEDS ORDERED: MECLIZINE HCL 25 MG TAB PO STA (00:10)
[2021-06-06] MEDS ORDERED: ONDANSETRON INJ 2 MG/ML 2 ML VIAL IV STA (00:10)
[2021-06-06] MEDS ORDERED: SODIUM CHLORIDE 0.9% 1000ML 1,000 ML IV SCH (00:15)
[2021-06-06 00:35] LABS: Basophils # (auto) 0.02 K/uL (0-0.2); Basophils % (auto) 0.3 %; Eosinophils # (auto) 0.11 K/uL (0-0.5); Eosinophils % (auto) 1.8 %; Hematocrit (blood only) 34.8 % (37-47); Hemoglobin 11.4 g/dL (12.0-16.0); Immature Granulocytes # (auto) 0.01 K/uL (0.00-0.02); Immature Granulocytes % (auto) 0.2 %; Lymphocytes # (auto) 0.88 K/uL (1.2-3.4); Lymphocytes % (auto) 14.3 %; Mean Corpuscular Hemoglobin 32.4 pg (25-34); Mean Corpuscular Hgb Conc 32.8 g/dL (32-36); Mean Corpuscular Volume 98.9 fL (80-100); Mean Platelet Volume 10.2 fL (7.4-10.4); Monocytes # (auto) 0.53 K/uL (0.11-0.59); Monocytes % (auto) 8.6 %; Neutrophils # (auto) 4.59 K/uL (1.4-6.5); Neutrophils % (auto) 74.8 %; Platelet Count 192 K/uL (130-400); RDW Coefficient of Variation 12.8 % (11.5-14.5); RDW Standard Deviation 46.4 fL (36.4-46.3); Red Blood Count 3.52 M/uL (4.2-5.4); White Blood Count 6.14 K/uL (4.8-10.8)
[2021-06-06 01:07] LABS: Alanine Aminotransferase 28 U/L (12-78); Albumin Level 3.8 gm/dl (3.4-5.0); Aspartate Aminotransferase 24 U/L (15-37); BUN Creatinine Ratio 19.2 (10-20); Blood Urea Nitrogen 34 mg/dl (7-18); Calcium 9.5 mg/dl (8.5-10.1); Carbon Dioxide 21 mmol/L (21-32); Chloride 116 mmol/L (98-107); Est GFR (African American) 35.8 ml/min; Est GFR (Non-African American) 30.9 ml/min; Glucose 103 mg/dl (70-99); Magnesium 1.6 mg/dl (1.8-2.4); Potassium 4.3 mmol/L (3.5-5.1); Sodium 141 mmol/L (136-145)
[2021-06-06 01:18] LABS: Albumin Globulin Ratio 1.1 (0.9-2); Alkaline Phosphatase 83 U/L (45-117); Bilirubin,Total 0.7 mg/dl (0.2-1); Globulin 3.4 gm/dl (2.5-4.0); Thyroid Stimulating Hormone 0.896 uIu/ml (0.300-4.500); Total Protein 7.2 gm/dl (6.4-8.2); Troponin I < 0.015 ng/ml (0-0.045)
--- NOTE | 2021-06-06 01:27 | Emergency Department Note ---
History of Present Illness General Chief complaint: Vomiting Stated complaint: VOMITING, WEAK, CANNOT WALK Time Seen by Provider: 06/05/21 23:50 History of Present Illness This 61-year-old presents to the ER complaining of feeling dizzy lightheaded and difficulty ambulating for the past few days who has lung cancer that is reoccurred Location: Generalized Quality: Weak and dizzy Severity: Moderate Duration: Past 3 days Timing: This started 3 days ago Context: Patient was concerned and came in Modifying factors: better with rest; worse with activity Patient denies chest pain, dyspnea, fevers, flulike illness, numbness, tingling, localized weakness. Patient states she has difficulty walking. Patient states since her chemo her memory has been impaired. Home Medications Medication Instructions Recorded Confirmed Type multivitamin 1 tab PO QAM 01/05/21 06/06/21 History pregabalin 150 mg capsule 150 mg PO BID 06/06/21 06/06/21 History Allergies Allergy/AdvReac Type Severity Reaction Status Date / Time lisinopril AdvReac Mild Cough Verified 06/06/21 00:51 Past Med/Surg History Medical History Anemia Anxiety Arthritis Bilat Knees & lower back Depression Esophageal spasm Esophageal stenosis Esophageal ulcer GERD (gastroesophageal reflux disease) Hypercholesterolemia Hypomagnesemia Hypotension Medical marijuana use hasn't used for over a month per pt Pancytopenia Renal insufficiency Restless leg syndrome Small cell lung cancer (04/21/20) chemo finished in Sep 2020 Symptomatic anemia Trimalleolar fracture of left ankle Surgical History H/O arthroscopic knee surgery 1998 RIGHT/ 2010 LEFT H/O tubal ligation 1991 H/O: section x2 1987 & 1982 History of bronchoscopy (04/21/20) 04/21/2020 - with positive biopsy History of esophagogastroduodenoscopy (EGD) History of excision of pilonidal cyst 1987 History of open reduction and internal fixation (ORIF) procedure (07/2020) L ankle secondary to fracture History of tooth extraction molars Port-A-Cath in place (05/25/20) Insertion of Mediport Left Subclavian with Fluoroscopy Dr. Ramos 05/25/2020 S/P carpal tunnel release 1990's RT / 2015 LEFT S/P tonsillectomy Age 4 Family History Mother , Passed age 64 of pancreatic cancer Cancer Hypertension Father Hearing loss Grandmother (Maternal) , Passed age 79 of Stomach Cancer No problems noted. Uncle , Passed in 80's of Colorectal Cancer No problems noted. Brother No problems noted. Brother No problems noted. Sister No problems noted. Grandfather (Maternal) , Passed age 89 of Bladder Cancer No problems noted. Son No problems noted. Daughter No problems noted. Grandmother Cancer Grandfather Cancer Other No family history of adverse response to anesthesia No family history of allergies No family history of bleeding disorder Denies family history of Ovarian cancer Heart disease Breast cancer Lung cancer Asthma Social History Smoking Status: Never smoker Tobacco Type: Cigarettes Age Started Using Tobacco: 20; Age Quit Using Tobacco: 60; packs per day: 1; Years Smoked: 40; Second Hand Exposure: No; Hx Alcohol Use: No Hx Substance Use: No Preferred Language: Martiniquais Communication Ability: Effective Visual Impairment: No Limitations Hearing Ability: Normal Marriage And Family Social Worker Required: No Beliefs That Will Affect Care: None marital status: Current Living Situation: Spouse current occupational status: employed 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 How many Children do You have: 2 Feels Safe at Home: Yes Childhood Exposure to Second-Hand Smoke: Yes caffeine: Yes (ice tea) during the past year weight has: remained stable Dental Care, Regularly: Yes Physical Activity Frequency: Does not Exercise Seatbelt Use: always Sunscreen Use: No Assistive Devices: Glasses Review of Systems A total of 10 systems reviewed and were otherwise negative Physical Exam Vital Signs Vital Signs - 24 hr 06/05/21 22:18 06/05/21 23:50 06/05/21 23:51 Temperature 36.6 C Temperature Source Temporal Artery Scan Pulse Rate 76 62 Pulse Rate [Finger] 65 Pulse Rate from SpO2 Sensor 61 Respiratory Rate 18 23 Blood Pressure 153/93 H 128/73 Blood Pressure [Left Arm] 128/73 Blood Pressure Mean 113 91 Blood Pressure Mean [Left Arm] 91 Pulse Oximetry 100 97 99 Oxygen Delivery Method Room Air Room Air Sepsis Recent Fever Within 48 Hours No Sepsis New/Unexplained Change in Mental Status No Sepsis Action Taken by Nursing No Action Required 06/06/21 02:08 06/06/21 02:30 Temperature Temperature Source Pulse Rate 63 Pulse Rate [Finger] 73 Pulse Rate from SpO2 Sensor 61 Respiratory Rate 16 20 Blood Pressure 146/71 H Blood Pressure [Left Arm] 147/66 H Blood Pressure Mean 96 Blood Pressure Mean [Left Arm] 93 Pulse Oximetry 97 96 Oxygen Delivery Method Room Air Sepsis Recent Fever Within 48 Hours Sepsis New/Unexplained Change in Mental Status Sepsis Action Taken by Nursing VITALS: Vitals are noted on the nurse's note and reviewed by myself. Vital signs stable. GENERAL: Pleasant female following commands, in no acute distress, nondiaphoretic, well-developed well-nourished. SKIN: The skin was without rashes, erythema, edema, or bruising. There is no tenting of the skin. Capillary reflex less than 2 seconds. HEAD: Normocephalic atraumatic. EARS: External auditory canals clear, tympanic membranes pearly cardona without erythema or effusion bilaterally. EYES: Pupils equal round and reactive to light and accommodation. Conjunctivae without injection, sclerae without icterus. Extraocular movements intact. No nystagmus NOSE: Patent, turbinates without inflammation or discharge. No sinus tenderness. MOUTH: Mucous membranes moist. Pharynx without erythema or exudate. Uvula midline. Airway patent. Tongue does not deviate. NECK: Supple without nuchal rigidity. No lymphadenopathy. No thyromegaly. Cervical spine is nontender. No JVD. HEART: Regular rate and rhythm LUNGS: Clear to auscultation bilaterally without wheezes, rales or rhonchi. No retractions or accessory muscle use. ABDOMEN: Positive bowel sounds x 4. Normal tympanic percussion. Soft, nontender, without masses or organomegaly. [place] sign negative. No guarding or rebound tenderness. No CVA tenderness MUSCULOSKELETAL: No muscle atrophy, erythema, or edema noted. 5-5 strength throughout NEURO: Patient was alert and oriented to person place and time. Normal sensation to light and sharp touch. Cranial nerves II through XII grossly intact. No prior drift. Cerebellar exam intact. No focal neurological deficits. Course Administered Medications Discontinued Medications Dexamethasone Sodium Phosphate (DexamethasonePf 10 Mg/Ml Vial) 10 mg IV NOW ONE Stop: 06/06/21 02:34 Last Admin: 06/06/21 02:41 Dose: 10 mg Documented by: [id number] Gadobutrol (Gadobutrol 65ml Vial) 5 ml IV ONCE ONE Stop: 06/06/21 01:55 Last Admin: 06/06/21 01:54 Dose: 5 ml Documented by: [id number] Sodium Chloride (Nss 1000ml) 1,000 mls @ 999 mls/hr IV .Q1H1M DELANEY Stop: 06/06/21 01:15 Last Infusion: 06/06/21 01:30 Dose: 0 mls/hr Documented by: [id number] Admin: 06/06/21 00:28 Dose: 999 mls/hr Documented by: [id number] Magnesium Sulfate/Dextrose (Magnesium Sulfate / D5w) 1 gm in 100 mls @ 100 mls/hr IV NOW STA Stop: 06/06/21 02:30 Last Admin: 06/06/21 02:11 Dose: 100 mls/hr Documented by: [id number] Meclizine HCl (Meclizine Hcl 25 Mg Tab) 25 mg PO NOW STA Stop: 06/06/21 00:11 Last Admin: 06/06/21 00:31 Dose: 25 mg Documented by: [id number] Ondansetron HCl (Ondansetron Inj 2 Mg/Ml 2 Ml Vial) 4 mg IV NOW STA Stop: 06/06/21 00:11 Last Admin: 06/06/21 00:30 Dose: 4 mg Documented by: [id number] Medical Decision Making Medical Records Attestation: I reviewed the patient's medical records. Home Medications Current Medication List: was personally reviewed by me Laboratory Data Attestation: I reviewed the patient's lab results. Result diagrams: 06/06/21 00:18 06/06/21 00:18 Lab Results 06/06/21 06/06/21 Range/Units 00:18 00:18 WBC 6.14 (4.8-10.8) K/uL RBC 3.52 L (4.2-5.4) M/uL Hgb 11.4 L (12.0-16.0) g/dL Hct 34.8 L (37-47) % MCV 98.9 (80-100) fL MCH 32.4 (25-34) pg MCHC 32.8 (32-36) g/dL RDW Std Deviation 46.4 H (36.4-46.3) fL RDW Coeff of Sebastián 12.8 (11.5-14.5) % Plt Count 192 (130-400) K/uL MPV 10.2 (7.4-10.4) fL Immature Gran % (Auto) 0.2 % Neut % (Auto) 74.8 % Lymph % (Auto) 14.3 % Stokes % (Auto) 8.6 % Eos % (Auto) 1.8 % Baso % (Auto) 0.3 % Neut # (Auto) 4.59 (1.4-6.5) K/uL Lymph # (Auto) 0.88 L (1.2-3.4) K/uL Stokes # (Auto) 0.53 (0.11-0.59) K/uL Eos # (Auto) 0.11 (0-0.5) K/uL Baso # (Auto) 0.02 (0-0.2) K/uL Immature Gran # (Auto) 0.01 (0.00-0.02) K/uL Sodium 141 (136-145) mmol/L Potassium 4.3 (3.5-5.1) mmol/L Chloride 116 H (98-107) mmol/L Carbon Dioxide 21 (21-32) mmol/L Anion Gap 4.0 (3-11) BUN 34 H (7-18) mg/dl Creatinine 1.77 H (0.6-1.2) mg/dl Est Cr Clr Drug Dosing Not Reportable Est GFR ( Amer) 35.8 ml/min Est GFR (Non-Af Amer) 30.9 ml/min BUN/Creatinine Ratio 19.2 (10-20) Glucose 103 H (70-99) mg/dl Calcium 9.5 (8.5-10.1) mg/dl Magnesium 1.6 L (1.8-2.4) mg/dl Total Bilirubin 0.7 (0.2-1) mg/dl AST 24 (15-37) U/L ALT 28 (12-78) U/L Alkaline Phosphatase 83 (45-117) U/L Troponin I < 0.015 (0-0.045) ng/ml Total Protein 7.2 (6.4-8.2) gm/dl Albumin 3.8 (3.4-5.0) gm/dl Globulin 3.4 (2.5-4.0) gm/dl Albumin/Globulin Ratio 1.1 (0.9-2) TSH 0.896 (0.300-4.500) uIu/ml Imaging Data Attestation: I personally reviewed and interpreted this imaging study as follows: MDM Narrative Prior records/ancillary studies reviewed and summarized above. Nursing notes reviewed. Additional history obtained from family. The patient's history was concerning for dizzy weak and difficulty walking. Differential diagnosis: Etiologies such as metabolic, infection, hypo/hyperglycemia, electrolyte abnormalities, cardiac sources, intracerebral event, toxicologic, neurologic, as well as others were entertained. Physical examination: As above. ER treatment provided: IV Lock An order was placed for continuous cardiac monitoring. The monitor shows a rate of 60-100 with a sinus rhythm. IV fluids, meclizine, Zofran On reassessment the patient felt better. Diagnostics interpretation by me: ECG: Ordered for dizziness EKG: Normal sinus, Q waves in inferior leads, rate of 61, no acute ST-T wave changes. Impression normal sinus rhythm with Q waves in inferior leads interpreted by myself I think arrhythmia is unlikely. EKG shows normal sinus rhythm with no interval abnormalities such as QT prolongation or WPW. There are no findings to suggest Brugada syndrome. Cardiac monitoring in the emergency department reveals no tachycardic or bradycardic dysrhythmia. Hypertrophic cardiomyopathy was considered but there are no clear historical elements pointing toward this. EKG is not suggestive. The QRS voltage is not extremely large and there are no suggestive Q waves. The labs revealed stable creatinine per chart review, no leukocytosis negative troponin Imaging studies: Chest x-ray with port present, no acute consolidation, pneumothorax or free air per my interpretation MRI HEAD : 2 cm heterogeneous enhancing mass in the superior midline cerebellar vermis, with moderate surrounding vasogenic edema involving bilateral cerebellar hemispheres. No other lesion. Given history, metastatic disease is most likely etiology. No acute infarct, acute bleed, hydrocephalus or herniation. Radiologist: Larisa Corona M.D. Consultation: A consultation was placed with oncology, Dr. Lance and recommend steroids and admit to medicine. The hospitalist was consulted. The case was discussed and diagnostics were reviewed. The patient was evaluated in the ER for further treatment. Exam and history seem consistent with new brain mets who has lung cancer that is reoccurred. Oncology recommends dexamethasone 10 mg now and then 4 mg every 8 hours. He will see the patient in the morning. He recommends medical admission. Hospitalist was consulted. He will evaluate for admission. Results reviewed with patient. All questions were answered. She was admitted to the medical service. Patient was neurovascularly and neurologically intact. She was afebrile and nontoxic. by the evaluation outlined above emergent etiologies such as infection, electrolyte abnormalities, cardiac sources, intracerebral event, toxologic, abnormalities blood glucose, metabolic, as well as others were deemed relatively unlikely. The pt informed about the findings as listed above. All questions were answered and pleased with the treatment. The chart was completed utilizing [employer] Speech voice recognition software. Grammatical errors, random word insertions, pronoun errors, and incomplete sentences are an occassional consequence of this system due to software limitations, ambient noise, and hardware issues. Any formal questions or c oncerns about the content, text, or information contained within the body of this dictation should be directly addressed to the physician children's nursery assistant for clarification. Impression & Plan Brain metastasis, Dizziness Discharge Plan Visit Data Chief Complaint: Vomiting Stated Complaint: VOMITING, WEAK, CANNOT WALK ED Provider: Paris Jerez ED Midlevel Provider: Jemima Beard Discharge Problem: Brain metastasis, Dizziness Patient Disposition: Admitted As Inpatient Condition: Fair Forms Stand Alone Forms: [facility] Meritful Prescriptions Prescriptions: No Action multivitamin Tablet 1 tab PO QAM RF: 0 pregabalin 150 mg capsule 150 mg PO BID RF: 0 Referrals Referrals: Jane Ortiz DO [Primary Care Provider] -
[2021-06-06] MEDS ORDERED: MAGNESIUM SULFATE / D5W 1 GM/100 ML BAG IV STA (01:31)
[2021-06-06] MEDS ORDERED: GADOBUTROL 65ML VIAL IV ONE (01:54)
[2021-06-06] MEDS ORDERED: dexAMETHasone**PF** 10 MG/ML VIAL IV ONE (02:33)
[2021-06-06] MEDS ORDERED: LORazepam 1 MG/2 ML VIAL IV STA (02:49)
[2021-06-06 02:53] LABS: Appearance Urine Slightly Cloudy (Clear); Bilirubin Urine Negative (Negative); Blood Urine Negative (Negative); Color Urine Yellow; Glucose Urine UA Negative (Negative); Ketones Urine Trace (Negative); Leukocyte Esterase Urine Negative (Negative); Nitrite Urine Negative (Negative); Protein Urine Negative (Negative); Urobilinogen Urine Negative (Negative)
--- NOTE | 2021-06-06 03:26 | History & Physical Report ---
Date of Service June 06, 2021 Assessment & Plan (1) Small cell lung cancer: Plan: Small cell lung cancer- Complete course of cisplatin/etoposide chemotherapy in September 2020 Completed take cranial radiation, [address] Darby MRI this evening with new 2 cm enhancing mass in the superior midline cerebellar vermis with moderate surrounding vasogenic edema (2) Brain metastasis: Plan: MRI shows a new 2 cm enhancing mass in the superior midline cerebellar vermis with moderate surrounding vasogenic edema. Patient received dexamethasone 10 mg IV in the ED We will continue dexamethasone 4 mg IV every [address] Olmos (3) Dizziness: Plan: Meclizine 25 mg p.o. every 6 hours as needed Lorazepam 1 mg IV every 4 hours as needed to address dizziness and/or anxiety Treat the underlying vasogenic edema with dexamethasone IV (4) Chronic kidney disease: Plan: Creatinine 2.77 upon admission, with range 1.58-2.40 Follow serially (5) GERD (gastroesophageal reflux disease): Plan: GERD/esophageal ulcer/esophageal spasm- On no outpatient medications Place on famotidine 20 mg IV every 12 hours (6) Esophageal ulcer: Plan: See above (7) Peripheral neuropathy due to chemotherapy: Plan: Continue pregabalin 150 mg p.o. twice daily. Patient does report that her symptoms seem to be worse over the past few days History of Present Illness Chief Complaint: The patient presents to the emergency department with lightheadedness and dizziness, with ambulatory dysfunction, that became severe today, requiring assistance to walk. Primary Care Provider: Jane Ortiz DO The patient is a 61-year-old female with a past history including small cell lung cancer status post chemotherapy and prophylactic cranial radiation therapy, anemia, esophageal spasm, esophageal stricture, GERD, RLS, hypercholesterolemia, depression, and anxiety. The patient had been feeling weak and dizzy for the past 24 hours, but worsened considerably today, and combined with her peripheral neuropathy, was unable to ambulate by herself. Imaging in emergency department included an MRI brain, which showed a 2 cm enh ancing mass in the superior midline cerebellar vermis, with moderate surrounding vasogenic edema. The patient was given dexamethasone 2 mg IV, after phone consult with oncology Dr. Olmos. Allergies Allergy/AdvReac Type Severity Reaction Status Date / Time lisinopril AdvReac Mild Cough Verified 06/06/21 00:51 Home Medications Medication Instructions Recorded Confirmed Type multivitamin 1 tab PO QAM 01/05/21 06/06/21 History pregabalin 150 mg capsule 150 mg PO BID 06/06/21 06/06/21 History Past Med/Surg History Medical History Anemia Anxiety Arthritis Bilat Knees & lower back Depression Esophageal spasm Esophageal stenosis Esophageal ulcer GERD (gastroesophageal reflux disease) Hypercholesterolemia Hypomagnesemia Hypotension Medical marijuana use hasn't used for over a month per pt Pancytopenia Renal insufficiency Restless leg syndrome Small cell lung cancer (04/21/20) chemo finished in Sep 2020 Symptomatic anemia Trimalleolar fracture of left ankle Surgical History H/O arthroscopic knee surgery 1998 RIGHT/ 2010 LEFT H/O tubal ligation 1991 H/O: section x2 1987 & 1982 History of bronchoscopy (04/21/20) 04/21/2020 - with positive biopsy History of esophagogastroduodenoscopy (EGD) History of excision of pilonidal cyst 1987 History of open reduction and internal fixation (ORIF) procedure (07/2020) L ankle secondary to fracture History of tooth extraction molars Port-A-Cath in place (05/25/20) Insertion of Mediport Left Subclavian with Fluoroscopy Dr. Ramos 05/25/2020 S/P carpal tunnel release 1990's / 2014 LEFT S/P tonsillectomy Age 4 Family History Mother , Passed age 64 of pancreatic cancer Cancer Hypertension Father Hearing loss Grandmother (Maternal) , Passed age 79 of Stomach Cancer No problems noted. Uncle , Passed in 80's of Colorectal Cancer No problems noted. Brother No problems noted. Brother No problems noted. Sister No problems noted. Grandfather (Maternal) , Passed age 89 of Bladder Cancer No problems noted. Son No problems noted. Daughter No problems noted. Grandmother Cancer Grandfather Cancer Other No family history of adverse response to anesthesia No family history of allergies No family history of bleeding disorder Denies family history of Ovarian cancer Heart disease Breast cancer Lung cancer Asthma Social History Smoking Status: Never smoker Tobacco Type: Cigarettes Age Started Using Tobacco: 20; Age Quit Using Tobacco: 60; packs per day: 1; Years Smoked: 40; Second Hand Exposure: No; Hx Alcohol Use: No Hx Substance Use: No Preferred Language: Kazakh Communication Ability: Effective Visual Impairment: No Limitations Hearing Ability: Normal Ingot Buggy Operator Required: No Beliefs That Will Affect Care: None marital status: Current Living Situation: Spouse current occupational status: employed 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 How many Children do You have: 2 Feels Safe at Home: Yes Childhood Exposure to Second-Hand Smoke: Yes caffeine: Yes (ice tea) during the past year weight has: remained stable Dental Care, Regularly: Yes Physical Activity Frequency: Does not Exercise Seatbelt Use: always Sunscreen Use: No Assistive Devices: Glasses Review of Systems Review of Systems: The patient denies chest pain, palpitations, shortness of breath, dyspnea on exertion, cough, lower extremity swelling, sore throat, fevers, chills, sweats, vomiting, diarrhea , constipation, abdominal pain, pelvic pain, blood in urine or stool, dysuria, urinary frequency or urgency, memory loss, loss of consciousness, rash, abnormal bruising or bleeding, focal weakness, numbness or tingling in arms or legs, generalized arthralgias or myalgias, back or neck pain, or night sweats. The review of systems is otherwise negative other than for that already noted above, and at least 10 systems have been reviewed. Physical Exam Physical Exam: The patient is awake, alert and oriented 3, well developed and well nourished, normocephalic and atraumatic, lying in bed, is mildly anxious, and otherwise in no acute distress. HEENT--PERRL, EOMI, mucous membranes and oropharynx dry. Neck--supple. No JVD. No bruits. Thyroid normal, trachea midline, no adenopathy. Heart--normal S1 and S2. No murmurs, rubs or gallops. Lungs--clear bilaterally, no respiratory distress, no accessory muscle use. Abdomen--normal bowel sounds and soft. Nontender. Nondistended, no hernias or masses, no organomegaly. Extremities--no cyanosis or clubbing. No edema. Dermatologic--normal skin turgor, normal color, no abnormal lymph nodes, no rash. Neurologic--cranial nerves II through XII grossly intact. Rheumatologic--normal range of motion. Psychiatric--mildly anxious Results & Data Results & Data ([facility]) Vital Signs (Past 12 Hours) Vital Signs Temp Pulse Pulse Resp BP BP Pulse Ox 06/06/21 02:30 63 20 146/71 H 96 06/06/21 02:08 73 16 147/66 H 97 06/05/21 23:51 62 23 128/73 99 06/05/21 23:50 65 128/73 97 06/05/21 22:18 97.9 F 76 18 153/93 H 100 Laboratory Results Laboratory Results WBC 6.14 K/uL (4.8-10.8) 06/06/21 00:18 RBC 3.52 M/uL (4.2-5.4) L 06/06/21 00:18 Hgb 11.4 g/dL (12.0-16.0) L 06/06/21 00:18 Hct 34.8 % (37-47) L 06/06/21 00:18 MCV 98.9 fL (80-100) 06/06/21 00:18 MCH 32.4 pg (25-34) 06/06/21 00:18 MCHC 32.8 g/dL (32-36) 06/06/21 00:18 RDW Std Deviation 46.4 fL (36.4-46.3) H 06/06/21 00:18 RDW Coeff of Sebastián 12.8 % (11.5-14.5) 06/06/21 00:18 Plt Count 192 K/uL (130-400) 06/06/21 00:18 MPV 10.2 fL (7.4-10.4) 06/06/21 00:18 Immature Gran % (Auto) 0.2 % 06/06/21 00:18 Neut % (Auto) 74.8 % 06/06/21 00:18 Lymph % (Auto) 14.3 % 06/06/21 00:18 Gregory % (Auto) 8.6 % 06/06/21 00:18 Eos % (Auto) 1.8 % 06/06/21 00:18 Baso % (Auto) 0.3 % 06/06/21 00:18 Neut # (Auto) 4.59 K/uL (1.4-6.5) 06/06/21 00:18 Lymph # (Auto) 0.88 K/uL (1.2-3.4) L 06/06/21 00:18 Gregory # (Auto) 0.53 K/uL (0.11-0.59) 06/06/21 00:18 Eos # (Auto) 0.11 K/uL (0-0.5) 06/06/21 00:18 Baso # (Auto) 0.02 K/uL (0-0.2) 06/06/21 00:18 Immature Gran # (Auto) 0.01 K/uL (0.00-0.02) 06/06/21 00:18 Sodium 141 mmol/L (136-145) 06/06/21 00:18 Potassium 4.3 mmol/L (3.5-5.1) 06/06/21 00:18 Chloride 116 mmol/L (98-107) H 06/06/21 00:18 Carbon Dioxide 21 mmol/L (21-32) 06/06/21 00:18 Anion Gap 4.0 (3-11) 06/06/21 00:18 BUN 34 mg/dl (7-18) H 06/06/21 00:18 Creatinine 1.77 mg/dl (0.6-1.2) H 06/06/21 00:18 Est Cr Clr Drug Dosing Not Reportable 06/06/21 00:18 Est GFR ( Amer) 35.8 ml/min 06/06/21 00:18 Est GFR (Non-Af Amer) 30.9 ml/min 06/06/21 00:18 BUN/Creatinine Ratio 19.2 (10-20) 06/06/21 00:18 Glucose 103 mg/dl (70-99) H 06/06/21 00:18 Calcium 9.5 mg/dl (8.5-10.1) 06/06/21 00:18 Magnesium 1.6 mg/dl (1.8-2.4) L 06/06/21 00:18 Total Bilirubin 0.7 mg/dl (0.2-1) 06/06/21 00:18 AST 24 U/L (15-37) 06/06/21 00:18 ALT 28 U/L (12-78) 06/06/21 00:18 Alkaline Phosphatase 83 U/L (45-117) 06/06/21 00:18 Troponin I < 0.015 ng/ml (0-0.045) 06/06/21 00:18 Total Protein 7.2 gm/dl (6.4-8.2) 06/06/21 00:18 Albumin 3.8 gm/dl (3.4-5.0) 06/06/21 00:18 Globulin 3.4 gm/dl (2.5-4.0) 06/06/21 00:18 Albumin/Globulin Ratio 1.1 (0.9-2) 06/06/21 00:18 TSH 0.896 uIu/ml (0.300-4.500) 06/06/21 00:18 Urine Color Yellow 06/06/21 02:05 Urine Appearance Slightly Cloudy (Clear) 06/06/21 02:05 Urine pH 5.0 (4.5-7.5) 06/06/21 02:05 Ur Specific [place] 1.020 (1.000-1.030) 06/06/21 02:05 Urine Protein Negative (Negative) 06/06/21 02:05 Urine Glucose (UA) Negative (Negative) 06/06/21 02:05 Urine Ketones Trace (Negative) H 06/06/21 02:05 Urine Blood Negative (Negative) 06/06/21 02:05 Urine Nitrite Negative (Negative) 06/06/21 02:05 Urine Bilirubin Negative (Negative) 06/06/21 02:05 Urine Urobilinogen Negative (Negative) 06/06/21 02:05 Ur Leukocyte Esterase Negative (Negative) 06/06/21 02:05 COVID-19 Eval Order Covid19 at [facility] 06/06/21 02:40 Diagnostic Findings [facility] Patient: NELLY PAINTER (Female) : 64 Status: ER Date: 06/06/21 02:04 Room #: c12b History: HX LUNG CA. DIZZYNESS. EARS FEEL CLOGGED. ROOM SPINNING. VOMITTING. SYMPTOMS X 1 WEEK. PT EGFR 30.9 PT STATED HER DIRECTOR OF PEOPLE DID NOT WANT HER TO HAVE CONTRAST. CONTRAST USE APPROVED BY ARMANDO BLU PA-C Slices: 490 Priors: mri brain 10/25/20 Tech: Fortunato Woodruff @ [phone] Exams: MRI HEAD Contrast: IV Amt: 5cc gadavist Accession Numbers: [id number] Referring Physician: REFERRED SELF Preliminary Findings Only See Final Report For Complete Findings MRI HEAD : 2 cm heterogeneous enhancing mass in the superior midline cerebellar vermis, with moderate surrounding vasogenic edema involving bilateral cerebellar hemispheres. No other lesion. Given history, metastatic disease is most likely etiology. No acute infarct, acute bleed, hydrocephalus or herniation. Radiologist: Larisa Corona M.D. Study ready at 02:05 and initial results transmitted at 02:15 *This report constitutes a preliminary interpretation only. Non-acute findings felt to be unrelated to the clinical presentation may not be discussed in this report. The study will be interpreted and a final report will be generated by the local Radiologist the following shift. To reach the hospital radiology department call [phone]. If a discrepancy is found between the preliminary and final interpretations of this study, please notify us via our Client Portal at [email or web address].You can also fax this report with a description of the discrepancy, or include the final report, to our daytime fax number [phone].If faxing, please indicate the severity of discrepancy using one of the following categories: [ ] 1 - Agree/Informational [ ] 2 - Unlikely to Affect Management [ ] 3 - Possible Eventual Change of Management [ ] 4 - Probable Immediate Change of Management For all other patient related information, please fax us at [phone]. [id number] Code Status & VTE Plan Code Status Full code VTE Prophylaxis Plan VTE Prophylaxis will be ordered: Yes PG Care Time/CCT Total # of Minutes Spent Total Time Spent with Patient: Total time spent is greater than 50% in coordination of care (as documented) at patient's floor/unit and/or counseling patient: Coding Level of Care Code 24106 Initial Inpt Care Lvl 3 Diagnoses Brain metastasis C79.31 Dizziness R42 Chronic kidney disease N18.9 Esophageal ulcer K22.10 Small cell lung cancer C34.90 Peripheral neuropathy due to chemotherapy G62.0; T45.1X5A GERD (gastroesophageal reflux disease) K21.9
[2021-06-06] MEDS: FAMOTIDINE 20 MG in SYRINGE 3 ML IV SCH ×2 (03:54→15:13)
[2021-06-06] MEDS ORDERED: ONDANSETRON INJ 2 MG/ML 2 ML VIAL IV PRN (05:10)
[2021-06-06] MEDS ORDERED: ACETAMINOPHEN 325 MG TAB PO PRN (05:10)
[2021-06-06] MEDS: dexAMETHasone 4 MG in SYRINGE 0 ML IV SCH ×2 (08:53→17:22)
[2021-06-06] MEDS: MULTIVITAMIN TAB PO SCH (08:53)
[2021-06-06] MEDS: PREGABALIN 150 MG CAP PO SCH ×2 (08:53→20:21)
--- NOTE | 2021-06-06 09:05 | XRay Report ---
XR chest 1V portable INDICATION: MN ^weakness . TECHNIQUE: Single frontal radiograph of the chest was obtained. Comparison: Comparison is made to chest one view 12/07/2020 FINDINGS: A right port catheter is seen. The cardiomediastinal silhouette is normal. There is blunting of the l eft costophrenic angle. No pneumothorax is seen and there is no right pleural effusion. IMPRESSION: Blunting of the left costophrenic angle may reflect small effusion or focal airspace disease. ACT 112: Negative or not required by law. Electronically signed by: Silvino Raphael M.D. 06/06/2021 9:03 AM
--- NOTE | 2021-06-06 10:02 | Radiation OncologyConsultation ---
Date of Consultation June 06, 2021 Assessment & Plan (1) Brain metastasis: Assessment: Ms. Tipton is a 61-year-old female previously treated with radiation therapy to the chest (6600 cGy, 33 fractions, 06/2020) and PCI (2500 cGy, 10 fractions, 11/2020) who now presents with metastatic disease involving the cerebellum. The patient was planning to start Keytruda underneath the supervision of Dr. Olmos. She was admitted to the hospital due to headaches and ataxia and her findings on the MRI of the brain. The patient has been started on dexamethasone 4 mg every 8 hours. I am now seeing the patient in consultation to discuss the role of radiation therapy. Recommendation: SBRT to brain metastasis. 3 to 5 fractions. Referral can be placed if patient opts for treatment at another facility. Plan: 1. Continue patient on dexamethasone 4 mg every [address] simulation for treatment planning in the outpatient setting. If patient's hospital stay is prolonged, consider CT simulation while patient is inpatient. IV contrast. Brain SRS protocol. 3. Follow-up with medical oncology in the outpatient setting. 4. Patient and family encouraged to call us with any further questions or concerns. Rationale/Explanation of Treatment: In general, we did discuss treatment recommendations for the management of metastatic disease to the brain. I did explain to the patient that most often biopsies are not performed given the patient's previous history of cancer unless the patient plans to undergo surgical resection. I discussed treatment options including surgical resection and radiation therapy. The patient defer surgical intervention and would prefer to undergo radiation therapy. I then discussed the advantages and disadvantages of both whole brain radiation therapy and stereotactic radiosurgery. I did discuss the benefits of whole brain radiation therapy with respect to overall intracranial control and the most significant disadvantages including long-term neurocognitive side effects; we then focused or conversation and stereotactic radiosurgery and explained the benefits which included minimizing radiation therapy to the normal brain and potentially reducing long-term side effects from radiation therapy as well as the disadvantages including the inability to potentially prevent further lesions from developing in the brain. I did explain that after the completion of stereotactic radiosurgery we would follow the patient with an MRI of the brain every 2-3 months which would enable us to potentially diagnose new lesions early while they are still asymptomatic and potentially treatable with stereotactic radiosurgery. The patient would like to undergo stereotactic radiosurgery. The patient will be brought back for CT simulation for treatment planning. I explained the indications, alternatives, benefits, risks and side effects of external beam radiation therapy to the brain. I explain the most common side effects including but not limited to skin erythema, skin break down, hair loss, radiation necrosis, fatigue, short-term memory loss, decreased neurocognitive performance, cerebral edema, hearing loss, damage to cochlea structures, seizures, loss of sensory and or motor function. I explained the treatment planning process and what to expect before during and after treatment. The patient understands and would be willing to consent to treatment. I have explained to the patient that there is an increased risk of overlap from the previous course of radiation therapy and the current course of radiation therapy which can increase the risk of all acute and late side effects of radiation therapy. The patient had multiple questions which were answered to their full satisfaction. Thank you for allowing us to participate in the care of this patient. This chart was completed in part utilizing [employer] Speech Voice Recognition software. Attempts were made to minimize the grammatical errors, random word insertions, pronoun errors and incomplete sentences. Any formal questions or concerns about the content, text or information contained within the body of this dictation should be directly addressed to the provider for clarification. Kayla Darby MD Department of Radiation Oncology [facility] and [facility] History of Present Illness Requesting Physician: Dr. Olmos Attending Physician: Silvino Alvarez DO History of Present Illness 04/14/2020. CT of abdomen/pelvis. Indicated to rule out left lower quadrant pain. IMPRESSION: 1. 4.6 cm left suprahilar mass-like opacity. This is suspicious for a pulmonary mass or lymphadenopathy. A CT of the chest with contrast is recommended. Findings discussed with Dr. Freedman at time of dictation. 2. 1.7 cm fat attenuation focus with mild adjacent infiltration anterior to the distal descending colon. This favors epiploic appendagitis or a small omental infarct. 3. Colonic diverticulosis without evidence for acute diverticulitis. 04/14/2020. CT of chest. IMPRESSION: 1. 5.4 x 3.9 cm left upper lobe mass which abuts the mediastinum. This is highly suggestive of primary lung cancer. Pulmonary consultation is recommended. 2. Enlarged AP window and left hilar lymph nodes suggestive of miriam spread of disease. Probable enlarged subcarinal lymph node which is also suspicious. 3. A few indeterminate but low suspicion additional pulmonary nodules. 4. Moderate emphysema. 04/20/2020. MRI brain. IMPRESSION: 1. 5.4 x 3.9 cm left upper lobe mass which abuts the mediastinum. This is highly suggestive of primary lung cancer. Pulmonary consultation is recommended. 2. Enlarged AP window and left hilar lymph nodes suggestive of miriam spread of disease. Probable enlarged subcarinal lymph node which is also suspicious. 3. A few indeterminate but low suspicion additional pulmonary nodules. 4. Moderate emphysema. 04/21/2020. Bronchoscopy with EBUS FNA. Biopsy of 4R is negative for malignancy. Biopsy of station 7 is positive for metastatic small cell carcinoma. Biopsy of station 10L is positive for metastatic small cell carcinoma. 04/26/2020. PET/CT. IMPRESSION: 1. 6.1 x 3.9 cm left upper lobe mass abutting the mediastinum demonstrates hypermetabolic activity suggestive of a probable primary bronchogenic carcinoma. 2. Hypermetabolic AP window, left hilar and subcarinal adenopathy suggests lymphatic metastasis. 3. There are a few scattered bilateral solid pulmonary nodules measuring up to 4 mm which are of low clinical suspicion and are below threshold in size for PET characterization. 4. No evidence of metastatic disease within the abdomen or pelvis. 5. Moderate emphysema. 6. Additional findings as above. 04/27/2020. Pulmonary follow-up with Dr. Rosa. Recommendation is for consideration of chemotherapy and radiation therapy. Referral to ENT for evaluation of base of tongue due to PET/CT. 05/16/2020 to 06/30/2020. Status post completion of combined radiation and chemotherapy. She received 6600 cGy utilizing volumetric modulated arc therapy. 33 fractions. Chemotherapy comprised of cisplatin and etoposide. 10/04/2020. Status post completion of 6 cycles of chemotherapy. 10/09/2020. EGD by Dr. Wall. Findings include intrinsic severe stenosis which was transverse with dilation. 10/19/2020. CT of chest/abdomen/pelvis. IMPRESSION: 1. Emphysema. 2. A spiculated left upper lobe pulmonary lesion has continued to modestly decrease in size as compared to prior studies. 3. There is no evidence of distant metastatic disease in the chest, abdomen, or pelvis. 4. There is no airspace consolidation or pleural effusion. 5. The esophagus appears mildly thick-walled and irregular. Correlate clinically for evidence of esophagitis. This could be further assessed with endoscopy if clinically warranted. 6. Additional findings as above. 10/20/2020. Medical oncology follow-up. Return to clinic in 1 month. 10/25/2020. MRI brain. IMPRESSION: 1. No acute intracranial findings. 2. No evidence of metastatic disease. 3. No change in appearance of the brain since MRI of April 20, 2020. 11/20/2020 to 12/04/2020. Prophylactic cranial irradiation. 2500 cGy. 10 fractions. 2050 cGy per fraction. 02/21/2021. PET/CT. IMPRESSION: 1. No evidence of pathological FDG avidity within neck, chest abdomen and pelvis suggestive of treatment response. 2. Previously seen slightly prominent left inguinal lymph node is slightly decreased in size. 3. Previously visualized left paramediastinal mass is no longer seen however there is interval development of patchy infiltrates involving left lung as well as small left pleural effusion most likely representing pneumonia. Short-term follow-up in 4-[address] of the chest is recommended to document resolution. 4. Interval development of small pericardial effusion. 05/30/2021. Medical oncology follow-up with Dr. Olmos. Recommendation is to proceed with Keytruda. 06/06/2021. Patient presents to emergency room due to gait imbalance and headaches. MRI brain reveals metastatic disease involving the cerebellum. Patient admitted to hospital. 06/06/2021. MRI brain. IMPRESSION: 1. Interval development of 15 x 14 mm mass lesion within cerebellar vermis associated with heterogeneous restricted diffusion, few areas of magnetic susceptibility which might represent blood products, surrounding vasogenic edema and heterogeneous, mostly peripheral enhancement is highly concerning for neoplastic etiology. Differential diagnosis might also include infectious/postinfectious etiology in appropriate clinical settings. Please correlate above-mentioned findings with prior history of malignancy and oncology evaluation. 2. No midline shift or ventricular dilatation. 3. No evidence of vascular territory infarct. 4. The rest of findings as above. Allergies Allergy/AdvReac Type Severity Reaction Status Date / Time lisinopril AdvReac Mild Cough Verified 06/06/21 00:51 Home Medications Medication Instructions Recorded Confirmed Type multivitamin 1 tab PO QAM 01/05/21 06/06/21 History pregabalin 150 mg capsule 150 mg PO BID 06/06/21 06/06/21 History Patient History Medical History Anemia Anxiety Arthritis Bilat Knees & lower back Depression Esophageal spasm Esophageal stenosis Esophageal ulcer GERD (gastroesophageal reflux disease) Hypercholesterolemia Hypomagnesemia Hypotension Medical marijuana use hasn't used for over a month per pt Pancytopenia Renal insufficiency Restless leg syndrome Small cell lung cancer (04/21/20) chemo finished in Sep 2020 Symptomatic anemia Trimalleolar fracture of left ankle Surgical History H/O arthroscopic knee surgery 1998 RIGHT/ 2010 LEFT H/O tubal ligation 1991 H/O: section x2 1987 & 1982 History of bronchoscopy (04/21/20) 04/21/2020 - with positive biopsy History of esophagogastroduodenoscopy (EGD) History of excision of pilonidal cyst 1987 History of open reduction and internal fixation (ORIF) procedure (07/2020) L ankle secondary to fracture History of tooth extraction molars Port-A-Cath in place (05/25/20) Insertion of Mediport Left Subclavian with Fluoroscopy Dr. Ramos 05/25/2020 S/P carpal tunnel release 1990's RT / 2014 LEFT S/P tonsillectomy Age 4 Family History Mother , Passed age 64 of pancreatic cancer Cancer Hypertension Father Hearing loss Grandmother (Maternal) , Passed age 79 of Stomach Cancer No problems noted. Uncle , Passed in 80's of Colorectal Cancer No problems noted. Brother No problems noted. Brother No problems noted. Sister No problems noted. Grandfather (Maternal) , Passed age 89 of Bladder Cancer No problems noted. Son No problems noted. Daughter No problems noted. Grandmother Cancer Grandfather Cancer Other No family history of adverse response to anesthesia No family history of allergies No family history of bleeding disorder Denies family history of Ovarian cancer Heart disease Breast cancer Lung cancer Asthma Social History Smoking Status: Former smoker Tobacco Type: Cigarettes Age Started Using Tobacco: 20; Age Quit Using Tobacco: 60; packs per day: 1; Years Smoked: 40; Second Hand Exposure: No; Hx Alcohol Use: Yes Alcohol type: beer and wine Alcohol Intake Frequency: Monthly or Less Hx Substance Use: No Preferred Language: Turkish Communication Ability: Effective Visual Impairment: No Limitations Hearing Ability: Normal Corporate Recycling Manager Required: No Beliefs That Will Affect Care: None marital status: Current Living Situation: Spouse current occupational status: employed 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 How many Children do You have: 2 Feels Safe at Home: Yes Childhood Exposure to Second-Hand Smoke: Yes caffeine: Yes (ice tea) during the past year weight has: remained stable Dental Care, Regularly: Yes Physical Activity Frequency: Does not Exercise Seatbelt Use: always Sunscreen Use: No Assistive Devices: None Physical Exam Constitutional: WD/WN, vitals as above well developed and well nourished Eyes: PERRL, conjunctivae normal, anicteric sclerae ENMT: external ear and nose normal, oropharynx normal Neck: trachea midline, no thyromegaly Skin: no rashes, warm and dry Psychiatric: A+Ox3, euthymic affect
--- NOTE | 2021-06-06 10:24 | Magnetic Resonance Report ---
MRI OF THE BRAIN WITHOUT AND WITH IV CONTRAST CLINICAL HISTORY: ca, dizzy,can't walk COMPARISON STUDY: October 25, 2020 TECHNIQUE: MRI of the brain was performed from the vertex to the skull base utilizing various T1 and T2 weighted sequences. Following the IV administration of mL of Gadavist contrast, additional enhance d images were obtained. FINDINGS: Sagittal T1, axial diffusion, proton density and T2 weighted axial, coronal FLAIR, and pre and post a xial T1-weighted images were acquired. These were supplemented with post gadolinium coronal T1 weight ed images. Interval development of 15 x 14 mm mass lesion within cerebellar vermis which shows heterogeneous are a of restricted diffusion and surrounding vasogenic edema. This lesion shows heterogeneous, mostly pe ripheral enhancement after intravenous contrast administration. Few punctate areas of magnetic susceptibility within right aspect of this mass which might represent blood products. There is no midline shift. Ventricles are midline, of normal size and configuration. Slightly prominent empty sella is seen. Axial diffusion-weighted images reveal no evidence of acute or subacute infarction. There is no evidence of ventricular dilatation. Proton density T2-weighted and FLAIR images reveal scattered foci of increased T2 signal within the w juana matter, likely on a small vessel basis. Also vasogenic edema surrounding cerebellar mass is best visualized on flair sequence. There are no abnormal flow voids. IMPRESSION: 1. Interval development of 15 x 14 mm mass lesion within cerebellar vermis associated with heterogen eous restricted diffusion, few areas of magnetic susceptibility which might represent blood products, surrounding vasogenic edema and heterogeneous, mostly peripheral enhancement is highly concerning fo r neoplastic etiology. Differential diagnosis might also include infectious/postinfectious etiology i n appropriate clinical settings. Please correlate above-mentioned findings with prior history of ajime gnancy and oncology evaluation. 2. No midline shift or ventricular dilatation. 3. No evidence of vascular territory infarct. 4. The rest of findings as above. ACT 112: Negative or not required by law. The above report was generated using voice recognition software. It may contain grammatical, syntax o r spelling errors. Electronically signed by: Tanesha Taveras DO 06/06/2021 10:22 AM
--- NOTE | 2021-06-06 12:27 | Communication Note ---
Date of Service: June 06, 2021 Mrs. Tipton is a 61-year-old white female with a known past medical history of lung CA (small cell) s/p chemotherapycompleted 10/12, and radiation X 10 (Dr. Darby). Presented to the ED complaining of intractable vomiting and vertiginous symptoms. Underwent MRI of the brain that showed a 2 cm enhancing lesion in the superior midline cerebellum with moderate vasogenic edema. This was thought to be the cause of her symptomatology. Was subsequently hospitalized. Given Decadron along with meclizine and Antivert. Overall, symptoms improved but st ill unable to walk to the bathroom given intractable vertigo. No vomiting since admission. Dr. Olmos (patient's established oncologist) has seen patient and potentially recommending gamma knife radiation. Reaching out to colleagues at [facility] and [facility] to determine if patient is a candidate. Currently, patient hemodynamically stable: 118/69, 88, 16, 36.4, 95% on room air General: Resting comfortably in her hospital bed. Appears chronically but not acutely ill. NAD. HEENT: I can convince myself that patient has nystagmus in the lateral gaze (both right and left sided) Neck: No JVD. Negative hepatojugular reflex Cardiac: RRR with 1-2/6 JORGE Lungs: CTA without W/R/R Abdomen: Normoactive X4. Soft and nontender in all quadrants. Extremities: No peripheral clubbing cyanosis or edema Neuro: A&O X4 cranial nerves II through XII are grossly intact no focal neuro deficits Skin: No obvious skin lesions or rashes A/P: 1. Small Cell Lung CA with mets to the Brain 2. Intractable N/V and Vertigo * continue with symptoms mgmt (decadron, ativert, ativan) * radiation/oncology on board-- appreciate recommendations * ? further mgmt as outpatient if symptoms manageable Chronic Medical conditions: 1. CKD 2. Anemia- stable 3. GERD 4. RLS 5. HLD 6. OA see full H&P as outlined
--- NOTE | 2021-06-06 13:18 | Consultation Report ---
MEDICAL ONCOLOGY CONSULTATION DATE OF SERVICE: 06/06/2021 REASON FOR CONSULTATION: DIRECTOR OF SAFETY AND SECURITY metastatic small cell lung cancer. HISTORY OF PRESENT ILLNESS: Ms. Tipton is a pleasant 61-year-old female patient well known to [facility] admitted in the safety admin assistant hours to [facility] with DIRECTOR OF SAFETY AND SECURITY metastatic disease. Apparently, she had been struggling with intermittent dizziness, gait disturbance and subsequent nausea and vomiting, which led to her Emergency Room visit. MRI of the brain confirmed a 2 cm cerebellar lesion despite undergoing prophylactic whole brain radiation in the past. ER physician contacted me in the safety admin assistant hours and instructed loading of dexamethasone 10 mg IV followed by 4 mg q.8 dose. I also recommended radiation oncology consultation to discuss possible radiosurgery. Lori is well known to [facility], started under my care in late 03/2020 when she was diagnosed with stage IIIA small cell lung cancer. She completed cisplatin and etoposide x6 cycles with concurrent radiation therapy in 09/2020. The patient had just returned to my office for a followup visit on 05/30, unfortunately revealing a thoracic disease progression by CT scan, and thus I recommended she begin salvage flat dose pembrolizumab, which is due to start on 06/11/2021. PAST MEDICAL HISTORY: Significant for metastatic small cell lung cancer, anemia, anxiety, osteoarthritis, depression, esophageal stenosis/spasm, gastroesophageal reflux disease, hypercholesterolemia, electrolyte dysfunction, hypotension, chronic renal insufficiency. PAST SURGICAL HISTORY: Status post tonsillectomy at age 4, status post carpal tunnel release in and 2014 respectively, MediPort placement on 05/25/2020, teeth extraction, open reduction and internal fixation in 07/2020 of left ankle fracture, excision of pilonidal cyst, EGD, bronchoscopy, history of section, tubal ligation and arthroscopic knee surgery. CURRENT MEDICATIONS: Pregabalin 150 mg p.o. b.i.d., multivitamin. ALLERGIES: LISINOPRIL ONLY. FAMILY HISTORY: Mother at age 64 from pancreatic cancer. Father is still living, has conductive hearing loss. Maternal grandmother at age 79 from stomach cancer. Maternal grandfather from bladder cancer at age 89. REVIEW OF SYSTEMS: CONSTITUTIONAL: As per HPI, most notably for gait disturbance, vertigo and nausea and vomiting. No fevers, chills or sweats. She is not anorexic or losing weight presently. SKIN: No rashes or lesions. No history of dermatoses. HEENT: Negative for headaches or lightheadedness, but positive for dizziness and positive for visual disturbance. No hearing deficits. Negative for sinus symptoms, sore throat or dysphagia. LYMPHATICS: No history of lymphoproliferative disease. CARDIAC: No angina or palpitations. PULMONARY: She is not acutely short of breath, dyspneic or orthopneic. No cough or hemoptysis. GASTROINTESTINAL: Negative for abdominal pain, nausea, vomiting, diarrhea or constipation, hematochezia or melena stools. GENITOURINARY: No hematuria, dysuria, or urinary incontinence. PSYCHIATRIC: Negative for anxiety, depression, or psychoses. ENDOCRINE: Negative for diabetes or thyroid disease. NEUROLOGIC: Negative for seizure, stroke or migraine headache. HEMATOLOGIC: Persistent chronic anemia. PHYSICAL EXAMINATION: GENERAL: Very pleasant 61-year-old female, awake, alert and appropriate, in no acute distress. VITAL SIGNS: Temperature 36.4, pulse 88, respiratory rate 16, blood pressure 118/69. SKIN: Warm, dry, noncyanotic without petechia, rash or ecchymosis. HEENT: Head atraumatic, normocephalic. Eyes: PERRLA. EOMI. Sclerae are nonicteric. Nares are patent without rhinorrhea or discharge. Throat is clear. Tongue is midline. Mucous membranes are moist. NECK: Supple without JVD or thyromegaly. LYMPHATICS: No cervical, supraclavicular, or axillary palpable nodes. HEART: Regular rate and rhythm. No clicks, rubs, murmurs or gallops. LUNGS: Clear to auscultation bilaterally. ABDOMEN: Soft, nontender, nondistended, without palpable hepatosplenomegaly. EXTREMITIES: No calf tenderness or swelling. No clubbing, cyanosis or edema. NEUROLOGIC: She is awake, alert and oriented x3. Cranial nerves grossly intact. RADIOGRAPHIC DATA: MRI of the brain: Interval development of 1.5 x 1.4 cm mass lesion within the cerebellar vermis associated with heterogeneous restricted diffusion and surrounding vasogenic edema. No evidence of midline shift or ventricular dilatation noted. LABORATORY DATA: WBC count 6140, hemoglobin 11.4, platelet count 192,000. Sodium 141, potassium 4.3, chloride 116, carbon dioxide 21, creatinine 1.77, BUN 34, magnesium 1.6. IMPRESSION: 1. Cerebellar metastasis/small cell lung cancer. 2. Vertigo. 3. Gait disturbance. 4. Nausea and vomiting. PLAN: Lori Tipton is a very pleasant 61-year-old female well known to [facility], diagnosed with locally advanced small cell lung cancer at the beginning of 2020. The patient initially received cisplatin and etoposide x6 cycles with concurrent radiation therapy followed by prophylactic whole brain radiation. I had just seen Lori in the office on 05/30. Surveillance scans at that time revealing progression within her thorax. Thus, Lori was recommended to start flat dose pembrolizumab scheduled to begin on 06/11. Lori presented to the ER with dizziness and Nausea, MRI of Brain confirming cerebellar mets. Recommended ER physician admit Lori to the hospitalist service, followed by consultation with radiation oncology to discuss radiosurgery. Recommended dexamethasone 10 mg immediately followed by 4 mg q.8 hour dosing. At bedside, Lori was in good spirits, but obviously her prognosis is quite poor. I still plan to begin pembrolizumab, which is not a radiosensitizer and after discussing with Dr. Darby, I anticipate a relatively short course of radiation therapy. Questions and concerns were addressed at bedside. Once she is stabilized neurologically, she could be discharged home. Thank you very much for allowing me to participate in her care. Job ID: [id number] [facility]PITALPiedad
[2021-06-06] MEDS: MECLIZINE HCL 25 MG TAB PO PRN (15:07)
[2021-06-06] MEDS: LORazepam 1 MG/2 ML VIAL IV PRN ×2 (15:07→20:21)
--- NOTE | 2021-06-06 15:30 | Electrocardiogram Report ---
Test Reason : Blood Pressure : / mmHG Vent. Rate : 061 BPM Atrial Rate : 061 BPM P-R Int : 160 ms QRS Dur : 096 ms QT Int : 420 ms P-R-T Axes : - -19 - degrees QTc Int : 422 ms Normal sinus rhythm Inferior infarct , age undetermined Abnormal ECG When compared with ECG of 07-DEC-2020 15:53, Inferior infarct is now Present ST now depressed in Inferior leads T wave inversion now evident in Inferior leads Confirmed by Leon Walsh ([id number]) on 06/06/2021 3:29:38 PM Referred By: REFERRED SELF Confirmed By:Leon Walsh
[2021-06-07] MEDS: dexAMETHasone 4 MG in SYRINGE 0 ML IV SCH ×2 (00:42→08:51)
[2021-06-07] MEDS: FAMOTIDINE 20 MG in SYRINGE 3 ML IV SCH (03:17)
[2021-06-07 07:41] VITALS: BP 131/72; PULSE 60; TEMP 98.1; O2SAT 97
[2021-06-07] MEDS: MULTIVITAMIN TAB PO SCH (08:51)
[2021-06-07] MEDS: MECLIZINE HCL 25 MG TAB PO PRN (08:51)
[2021-06-07] MEDS: PREGABALIN 150 MG CAP PO SCH (08:51)
[2021-06-07] MEDS: LORazepam 1 MG/2 ML VIAL IV PRN (09:13)
[2021-06-07 09:34] LABS: Hematocrit (blood only) 37.4 % (37-47); Hemoglobin 12.1 g/dL (12.0-16.0); Immature Granulocytes # (auto) 0.03 K/uL (0.00-0.02); Immature Granulocytes % (auto) 0.3 %; Lymphocytes # (auto) 0.73 K/uL (1.2-3.4); Lymphocytes % (auto) 6.7 %; Mean Corpuscular Hemoglobin 32.4 pg (25-34); Mean Corpuscular Hgb Conc 32.4 g/dL (32-36); Mean Platelet Volume 10.7 fL (7.4-10.4); Monocytes # (auto) 0.35 K/uL (0.11-0.59); Monocytes % (auto) 3.2 %; Neutrophils % (auto) 89.8 %; Platelet Count 240 K/uL (130-400); RDW Coefficient of Variation 12.9 % (11.5-14.5); RDW Standard Deviation 47.2 fL (36.4-46.3); Red Blood Count 3.74 M/uL (4.2-5.4); White Blood Count 10.91 K/uL (4.8-10.8)
[2021-06-07 10:04] LABS: Albumin Level 3.9 gm/dl (3.4-5.0); BUN Creatinine Ratio 20.6 (10-20); Calcium 9.8 mg/dl (8.5-10.1); Creatinine Clr Calc Pharmacy 23.7 ml/min; Est GFR (African American) 30.5 ml/min; Est GFR (Non-African American) 26.3 ml/min; Magnesium 1.9 mg/dl (1.8-2.4); Potassium 4.6 mmol/L (3.5-5.1)
[2021-06-07 10:07] LABS: Albumin Globulin Ratio 1.1 (0.9-2); Bilirubin,Total 0.5 mg/dl (0.2-1); Globulin 3.5 gm/dl (2.5-4.0); Total Protein 7.4 gm/dl (6.4-8.2)
--- NOTE | 2021-06-07 14:32 | Discharge Summary ---
Date of Service June 07, 2021 Admission HPI Per Admitting Provider The patient is a 61-year-old female with a past history including small cell lung cancer status post chemotherapy and prophylactic cranial radiation therapy, anemia, esophageal spasm, esophageal stricture, GERD, RLS, hypercholesterolemia, depression, and anxiety. The patient had been feeling weak and dizzy for the past 24 hours, but worsened considerably today, and combined with her peripheral neuropathy, was unable to ambulate by herself. Imaging in emergency department included an MRI brain, which showed a 2 cm enhancing mass in the superior midline cerebellar vermis, with moderate surrounding vasogenic edema. The patient was given dexamethasone 2 mg IV, after phone consult with oncology Dr. Olmos. Principal Diagnosis 1. metastatic Small Cell Lung CA 2. Brain Mets 3. Intractable Vertigo (secondary to #2)- symptoms manageable 4. Intractable N/V (secondary to #2)- symptoms manageable Discharge Exam Currently, patient hemodynamically stable: 131/72, 60, 16, 36.7, 97% on room air General: Resting comfortably in her hospital bed. Appears chronically but not acutely ill. NAD. HEENT: no nystagmus noted Neck: No JVD. Negative hepatojugular reflex Cardiac: RRR with 1-2/6 JORGE Lungs: CTA without W/R/R Abdomen: Normoactive X4. Soft and nontender in all quadrants. Extremities: No peripheral clubbing cyanosis or edema Neuro: A&O X4 cranial nerves II through XII are grossly intact no focal neuro deficits Skin: No obvious skin lesions or rashes Discharge Data Allergies Allergy/AdvReac Type Severity Reaction Status Date / Time lisinopril AdvReac Mild Cough Verified 06/06/21 00:51 Consultations 06/06/21 02:34 ED Decision to Admit Stat 06/06/21 05:10 Consult Hematology Routine PLAN: Lori Tipton is a very pleasant 61-year-old female well known to [facility], diagnosed with locally advanced small cell lung cancer at the beginning of 2020. The patient initially received cisplatin and etoposide x6 cycles with concurrent radiation therapy followed by prophylactic whole brain radiation. I had just seen Lori in the office on 05/30. Surveillance scans at that time revealing progression within her thorax. Thus, Lori was recommended to start flat dose pembrolizumab scheduled to begin on 06/11. Lori presented to the ER with dizziness and Nausea, MRI of Brain confirming cerebellar mets. Recommended ER physician admit Lori to the hospitalist service, followed by consultation with radiation oncology to discuss radiosurgery. Recommended dexamethasone 10 mg immediately followed by 4 mg q.8 hour dosing. At bedside, Lori was in good spirits, but obviously her prognosis is quite poor. I still plan to begin pembrolizumab, which is not a radiosensitizer and after discussing with Dr. Darby, I anticipate a relatively short course of radiation therapy. Questions and concerns were addressed at bedside. Once she is stabilized neurologically, she could be discharged home. 06/06/21 10:15 Consult Radiation Oncology Routine Assessment & Plan (1) Brain metastasis: Assessment: Ms. Tipton is a 61-year-old female previously treated with radiation therapy to the chest (6600 cGy, 33 fractions, 06/2020) and PCI (2500 cGy, 10 fractions, 11/2020) who now presents with metastatic disease involving the cerebellum. The patient was planning to start Keytruda underneath the supervision of Dr. Olmos. She was admitted to the hospital due to headaches and ataxia and her findings on the MRI of the brain. The patient has been started on dexamethasone 4 mg every 8 hours. I am now seeing the patient in consultation to discuss the role of radiation therapy. Recommendation: SBRT to brain metastasis. 3 to 5 fractions. Referral can be placed if patient opts for treatment at another facility. Plan: 1. Continue patient on dexamethasone 4 mg every [address] simulation for treatment planning in the outpatient setting. If patient's hospital stay is prolonged, consider CT simulation while patient is inpatient. IV contrast. Brain SRS protocol. 3. Follow-up with medical oncology in the outpatient setting. 4. Patient and family encouraged to call us with any further questions or concerns. Rationale/Explanation of Treatment: In general, we did discuss treatment recommendations for the management of metastatic disease to the brain. I did explain to the patient that most often biopsies are not performed given the patient's previous history of cancer unless the patient plans to undergo surgical resection. I discussed treatment options including surgical resection and radiation therapy. The patient defer surgical intervention and would prefer to undergo radiation therapy. I then discussed the advantages and disadvantages of both whole brain radiation therapy and stereotactic radiosurgery. I did discuss the benefits of whole brain radiation therapy with respect to overall intracranial control and the most significant disadvantages including long-term neurocognitive side effects; we then focused or conversation and stereotactic radiosurgery and explained the benefits which included minimizing radiation therapy to the normal brain and potentially reducing long-term side effects from radiation therapy as well as the disadvantages including the inability to potentially prevent further lesions from developing in the brain. I did explain that after the completion of stereotactic radiosurgery we would follow the patient with an MRI of the brain every 2-3 months which would enable us to potentially diagnose new lesions early while they are still asymptomatic and potentially treatable with stereotactic radiosurgery. The patient would like to undergo stereotactic radiosurgery. The patient will be brought back for CT simulation for treatment planning. I explained the indications, alternatives, benefits, risks and side effects of external beam radiation therapy to the brain. I explain the most common side effects including but not limited to skin erythema, skin break down, hair loss, radiation necrosis, fatigue, short-term memory loss, decreased neurocognitive performance, cerebral edema, hearing loss, damage to cochlea structures, seizures, loss of sensory and or motor function. I explained the treatment planning process and what to expect before during and after treatment. The patient understands and would be willing to consent to treatment. I have explained to the patient that there is an increased risk of overlap from the previous course of radiation therapy and the current course of radiation therapy which can increase the risk of all acute and late side effects of radiation therapy. The patient had multiple questions which were answered to their full satisfaction. Thank you for allowing us to participate in the care of this patient. This chart was completed in part utilizing [employer] Speech Voice Recognition software. Attempts were made to minimize the grammatical errors, random word insertions, pronoun errors and incomplete sentences. Any formal questions or concerns about the content, text or information contained within the body of this dictation should be directly addressed to the provider for clarificatio Ordered Studies 06/06/21 00:56 MR brain wo/w con Stat Hospital Course (1) Small cell lung cancer: Small cell lung cancer- Completed course of cisplatin/etoposide chemotherapy in September 2020 Completed take cranial radiation, [address] Darby MRI this evening with new 2 cm enhancing mass in the superior midline cerebellar vermis with moderate surrounding vasogenic edema (2) Brain metastasis: MRI shows a new 2 cm enhancing mass in the superior midline cerebellar vermis with moderate surrounding vasogenic edema. Patient received dexamethasone 10 mg IV in the ED with continued 4mg IV q8h symptoms managable at this time has been seen by Dr. Olmos and Dr. Darby and plan if for continued OP management/radiation treatment (see above as outlined) (3) Dizziness: Meclizine 25 mg p.o. every 6 hours as needed Lorazepam 1 mg every 4 hours as needed to address dizziness and/or anxiety Treat the underlying vasogenic edema with continued decadron (4mg tid with further titration at discretion of oncology. Did discuss this with Dr. Darby) Recommend downtitration of decadron as quickly as possible (pending symptom mgmt)-- tid x 1 week and further titration at discretion of Oncology (4) Chronic kidney disease: Creatinine 2.02 (baseline 1.5-2.11). Ultimately, decadron may worsen renal function but necessary to help with surrounding edema. (5) GERD (gastroesophageal reflux disease): GERD/esophageal ulcer/esophageal spasm- On no outpatient medications Place on famotidine 20 mg IV every 12 hours (6) Esophageal ulcer: See above (7) Peripheral neuropathy due to chemotherapy: Continue pregabalin 150 mg p.o. twice daily. Patient does report that her symptoms seem to be worse over the past few days Total Time Total Time Spent Total Time Spent (In Minutes): 45 Discharge Plan Discharge Items Patient Disposition: Home - Self-Care Reason For Visit: BRAIN METASTASIS, INTRACTABLE DIZZYNESS Discharge Diagnosis: 1. Lung CA with metastasis to the Brain 2. Vertigo (secondary to #1) 3. Nausea and Vomiting (secondary to #1) Condition on Discharge: Fair Activity: Resume your previous activity Non-emergency contact: Primary Care Provider and Oncologist Call non-emergency contact if: you have any medication questions Follow-up/Referrals: Jane Ortiz DO [Primary Care Provider] - 06/13/21 10:20 am (Appointment will be with Crissy Campbell ) Kayla Darby MD [Physician] - 06/12/21 8:30 am (CT Simulation test. Arrival time at 0830 to start IV test to begin at 0900) Diet: Regular Addtl Attending Provider Instructions: - You came to the Ed with Intractable Nausea and Vomiting - You were found to have metastatic Cancer to the brain (likely causing your symptoms) - you have been started on Antivert, Ativan and Decadron (to help manage associated edema in the brain and associated symptoms) - follow up with Dr. Darby (for radiation as discussed) and With Dr. Olmos as scheduled - return to the ED for new or worsening symptoms Pending Studies at Discharge: No Stand-Alone Forms: My [facility] Medications and DC Order Prescriptions: New meclizine 25 mg Tablet 25 mg PO Q6H PRN (Reason: dizziness) Qty: 60 RF: 0 dexamethasone [Decadron] 4 mg tablet 4 mg PO TID Qty: 30 RF: 0 lorazepam [Ativan] 1 mg tablet 1 mg PO Q6H PRN (Reason: anxiety) Qty: 30 RF: 0 ondansetron HCl [Zofran] 4 mg tablet 4 mg PO Q8H PRN (Reason: nausea and vomiting) Qty: 30 RF: 0 Continued multivitamin Tablet 1 tab PO QAM RF: 0 pregabalin 150 mg capsule 150 mg PO BID RF: 0 Discharge Orders: Discharge Order (Routine); Ordered 06/07/21 Ordered By: Lurdes Woodward Admission Data Admit Date/Time: 06/06/21 03:10 Attending Provider: Silvino Alvarez Admit Provider: Yon Acuna Primary Care Provider: Jane Ortiz Other Providers: Lucio Olmos V. ; Kayla Darby ; Yon Acuna Other Interventions: Discharge Summary Assessment (RN) Last Done: 06/07/21 13:15 Supervising Physician Co-Signing Physician Notes Patient seen and examined on the day of discharge. I agree with the discharge summary by Lurdes CARLISLE. I have reviewed the chart including labs, imaging and plans for discharge. patient's vertigo and nausea are improved, says she will be okay plans to follow up closely with radiation oncology and will be starting Keytruda soon with Dr. Olmos - Small cell lung CA now with brain mets Decadron for swelling, Meclizine for symptoms Coding Level of Care Code Established Pt D/C DAY MANAGEMENT >30 MINS Patient Type Established Diagnoses Small cell lung cancer C34.90 Brain metastasis C79.31 Dizziness R42 Chronic kidney disease N18.9 GERD (gastroesophageal reflux disease) K21.9 Esophageal ulcer K22.10 Peripheral neuropathy due to chemotherapy G62.0; T45.1X5A Time Spent (min) 45
== END 2021-06-07 14:08 | disposition home or self-care (01) | DRG 54 ==
LOC: ED 22:03 → SUATTDRO 06-06 03:10 → 3W 06-06 03:10

== ENCOUNTER 2022-03-08 18:36 | Inpatient (IN) ==
[2022-03-08 19:35] LABS: Basophils # (auto) 0.02 K/uL (0-0.2); Basophils % (auto) 0.5 %; Eosinophils # (auto) 0.04 K/uL (0-0.5); Eosinophils % (auto) 0.9 %; Hemoglobin 11.1 g/dL (12.0-16.0); Immature Granulocytes # (auto) 0.03 K/uL (0.00-0.02); Immature Granulocytes % (auto) 0.7 %; Lymphocytes # (auto) 0.57 K/uL (1.2-3.4); Mean Corpuscular Hemoglobin 30.6 pg (25-34); Mean Corpuscular Hgb Conc 32.6 g/dL (32-36); Mean Corpuscular Volume 93.7 fL (80-100); Mean Platelet Volume 9.9 fL (7.4-10.4); Monocytes # (auto) 0.12 K/uL (0.11-0.59); Monocytes % (auto) 2.7 %; Neutrophils # (auto) 3.59 K/uL (1.4-6.5); Neutrophils % (auto) 82.2 %; Platelet Count 207 K/uL (130-400); RDW Coefficient of Variation 18.8 % (11.5-14.5); RDW Standard Deviation 64.5 fL (36.4-46.3); Red Blood Count 3.63 M/uL (4.2-5.4); White Blood Count 4.37 K/uL (4.8-10.8)
[2022-03-08 19:44] LABS: Prothrombin Time 10.3 Seconds (9.0-12.0)
--- NOTE | 2022-03-08 19:45 | XRay Report ---
XR chest 1V portable CLINICAL HISTORY: weakness. Evaluate cardiopulmonary status COMPARISON STUDY: 12/09/2021 TECHNIQUE: 1 view of the chest FINDINGS: Single frontal view of the chest demonstrates the cardiomediastinal silhouette to be within normal li mits. The lungs are clear of alveolar opacities. There is no evidence for pleural effusion. There is no evidence for vascular congestion. There is no acute osseous pathology. IMPRESSION: 1. No acute cardiopulmonary disease. ACT 112: Negative or not required by law. Electronically signed by: Nadeem Bai M.D. 03/08/2022 7:43 PM
[2022-03-08 20:00] LABS: Alanine Aminotransferase 32 U/L (7-52); Albumin Globulin Ratio 1.5 (0.9-2); Alkaline Phosphatase 97 U/L (34-104); Anion Gap 12 (3-11); Aspartate Aminotransferase 23 U/L (13-39); Blood Urea Nitrogen 25 mg/dl (6-23); Calcium 9.7 mg/dl (8.5-10.1); Carbon Dioxide 25 mmol/L (21-32); Chloride 105 mmol/L (98-107); Est GFR (African American) 29.3 ml/min; Est GFR (Non-African American) 25.3 ml/min; Globulin 2.7 gm/dl (2.5-4.0); Glucose 101 mg/dl (70-99(Fasting)); Potassium 4.5 mmol/L (3.5-5.1); Sodium 142 mmol/L (136-145); Total Protein 6.7 gm/dl (6.0-8.3); Troponin I High Sensitivity 7.1 pg/ml (0-14)
[2022-03-08] MEDS ORDERED: ONDANSETRON INJ 2 MG/ML 2 ML VIAL IV STA ×2 (20:02→20:55)
--- NOTE | 2022-03-08 20:16 | Emergency Department Note ---
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 The patient's states that she has had slurred speech. Patient has history of metastatic lung cancer to the brain. She has had successful radiation treatment for an MRI 2 weeks ago. Patient did fall and hit her head 2 days ago and has a hematoma to the right restorationist. states she was vomiting and had some change in mental status just prior to that fall. Patient would not allow her to bring her to the hospital for evaluation. She stated at home yesterday with a family member while her was at work, but upon his return home she was somewhat worse. Today he finally convinced her to be seen. She denies any headache but is concerned with the nausea. REVIEW OF SYSTEMS: A review of systems was performed with positives and pertinent negatives listed in the history of present illness. 10 systems were reviewed and are otherwise negative. ALLERGIES: see below MEDICATIONS: see below PMH: see below SOCIAL HISTORY: see below DDx:Migraine headache, meningitis, sinusitis, CO exposure, ICH, SAH, infection, intracranial mass, headache, sinus thrombosis, arterial dissection, as well as other pathologies. PHYSICAL EXAM: Vital signs reviewed. Slightly hypertensive General: Chronically ill-appearing 61-year-old female, in no significant distress. HEENT: No scleral icterus, PERRLA, neck supple. Hematoma noted to the right restorationist, moist mucous membranes. Cardiovascular: Regular rate and rhythm, no extra sounds. Pulmonary: Clear to auscultation bilaterally, normal work of breathing. Abdomen: Soft, nontender, nondistended, positive bowel sounds. Musculoskeletal: Atraumatic, no peripheral edema. Neurologic: Patient awake alert and pleasantly confused but able to answer basic questions appropriately, speech is slurred. Patient does follow commands. Skin: Warm, dry, no rash EMERGENCY DEPARTMENT COURSE/MDM: This patient was evaluated and appeared to be in no significant distress. IV access was obtained and laboratory work was drawn. Patient was placed on the electrocardiograph technician and noted to be in a normal sinus rhythm. She did have a small hematoma to the right restorationist from a recent fall therefore CT imaging was performed and is negative for acute intracranial abnormality. There is evidence of the known mass and there has been no significant change. UA is indicative of infection will be sent for culture. Patient was given 1 g of IV ceftriaxone. Patient does seem to be having difficulty with her speech and given the rather sudden decline in her functional status, it seems reasonable to consult the hospitalist service for further management and evaluation. Will likely require an MRI and perhaps neurology/oncology evaluation. And were aware of the plan and agreed. MONITORING: An order for cardiac monitoring was placed and the patient is noted to be in a normal sinus rhythm at 96 beats per minute. RADIOLOGY: See below EKG: Normal sinus rhythm at 82 bpm. Right axis deviation. Potential for limb lead reversal. No PVC, no PAC. QTc is 436. DISPOSITION: Admission Past Med/Surg History Medical History Anemia Anxiety Arthritis Bilat Knees & lower back Bilateral cataracts due for removal on -left 08/29/2021 and right 09/07/2021 Depression Esophageal spasm Esophageal stenosis Esophageal ulcer GERD (gastroesophageal reflux disease) Hypercholesterolemia Hypomagnesemia Hypotension Medical marijuana use hasn't used for over a month per pt Pancytopenia Renal insufficiency Restless leg syndrome Small cell lung cancer (04/21/20) chemo finished in Sep 2020 Symptomatic anemia Trimalleolar fracture of left ankle Surgical History H/O arthroscopic knee surgery 1998 RIGHT/ 2010 LEFT H/O tubal ligation 1991 H/O: section x2 1987 & 1982 History of bronchoscopy (04/21/20) 04/21/2020 - with positive biopsy History of esophagogastroduodenoscopy (EGD) History of excision of pilonidal cyst 1987 History of open reduction and internal fixation (ORIF) procedure (07/2020) L ankle secondary to fracture History of tooth extraction molars Port-A-Cath in place (05/25/20) Insertion of Mediport Left Subclavian with Fluoroscopy Dr. Ramos 05/25/2020 S/P carpal tunnel release 1989's RT / 2014 LEFT S/P tonsillectomy Age 4 Family History Mother , Passed age 64 of pancreatic cancer Cancer Hypertension Father Hearing loss Grandmother (Maternal) , Passed age 79 of Stomach Cancer No problems noted. Uncle , Passed in 80's of Colorectal Cancer No problems noted. Brother No problems noted. Brother No problems noted. Sister No problems noted. Grandfather (Maternal) , Passed age 89 of Bladder Cancer No problems noted. Son No problems noted. Daughter No problems noted. Grandmother Cancer Grandfather Cancer Other No family history of adverse response to anesthesia No family history of allergies No family history of bleeding disorder Denies family history of Ovarian cancer Heart disease Breast cancer Lung cancer Asthma Social History Smoking Status: Former smoker Tobacco Type: Cigarettes Age Started Using Tobacco: 20; Age Quit Using Tobacco: 60; packs per day: 1; Years Smoked: 40; Cigarettes Per Day: 1 pack; Second Hand Exposure: No; Hx Alcohol Use: No Hx Substance Use: Yes Prescribed Medications: Marijuana Substance Use Type Other:: no longer using medical marijuana Preferred Language: Bengali Communication Ability: Effective Visual Impairment: No Limitations Hearing Ability: Normal Neurocritical Care Physician Required: No Beliefs That Will Affect Care: None marital status: Current Living Situation: Spouse Current Living Situation Comment: with current occupational status: employed 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 How many Children do You have: 0 Feels Safe at Home: Yes Childhood Exposure to Second-Hand Smoke: Yes caffeine: Yes (ice tea) during the past year weight has: remained stable Dental Care, Regularly: Yes Physical Activity Frequency: Does not Exercise Seatbelt Use: always Sunscreen Use: No Assistive Devices: Walker and Wheelchair Allergies Allergies Allergy/AdvReac Type Severity Reaction Status Date / Time lisinopril AdvReac Mild Cough Verified 03/08/22 19:42 Home Meds Home Medications Medication Instructions Recorded Confirmed omeprazole 20 mg tablet,delayed 20 mg PO DAILY 08/22/21 03/08/22 release pantoprazole 40 mg tablet,delayed 40 mg PO DAILY 08/22/21 03/08/22 release Previous Rx's Medication Instructions Recorded ondansetron HCl 4 mg tablet 4 mg PO Q8H PRN #30 tab 06/07/21 (Zofran) pregabalin 150 mg capsule 150 mg PO BID #60 cap 11/22/21 meclizine 25 mg tablet 25 mg PO Q6H PRN #60 tab 01/23/22 venlafaxine 75 mg tablet 75 mg PO DAILY #90 tab 01/23/22 lorazepam 0.5 mg tablet See Rx Instructions PO Q8H PRN #60 03/07/22 tab oxycodone 5 mg tablet 5 mg PO Q4H PRN #15 tab 03/07/22 cefdinir 300 mg capsule 300 mg PO BID #6 cap 03/10/22 promethazine 25 mg rectal 25 mg IN Q6H PRN #12 ea 03/10/22 suppository scopolamine base 1 mg over 3 days 1 mg TRANSDERMAL Q72H #10 ea 03/10/22 transdermal patch (Transderm-Scop) Results & Data (ED) Vital Signs Vital Signs - 24 hr 03/08/22 18:43 Temperature 36.5 C Temperature Source Oral Pulse Rate 96 H Pulse Rhythm Regular Pulse Strength Normal Respiratory Rate 20 Respiratory Effort / Characteristics Non-Labored Spontaneous Respiratory Depth Normal Respiratory Pattern Regular Blood Pressure 149/86 H Blood Pressure Mean 107 Blood Pressure Position Sitting Pulse Oximetry 93 Oxygen Delivery Method Room Air Sepsis Recent Fever Within 48 Hours No Sepsis New/Unexplained Change in Mental Status No Sepsis Action Taken by Nursing No Action Required Home Medications Current Medication List: was personally reviewed by me Laboratory Data Attestation: I reviewed the patient's lab results. Result diagrams: 03/10/22 05:38 03/10/22 05:38 Lab Results 03/08/22 03/08/22 03/08/22 Range/Units 19:15 19:15 19:15 WBC 4.37 L (4.8-10.8) K/uL RBC 3.63 L (4.2-5.4) M/uL Hgb 11.1 L (12.0-16.0) g/dL Hct 34.0 L (37-47) % MCV 93.7 (80-100) fL MCH 30.6 (25-34) pg MCHC 32.6 (32-36) g/dL RDW Std Deviation 64.5 H (36.4-46.3) fL RDW Coeff of Sebastián 18.8 H (11.5-14.5) % Plt Count 207 (130-400) K/uL MPV 9.9 (7.4-10.4) fL Immature Gran % (Auto) 0.7 % Neut % (Auto) 82.2 % Lymph % (Auto) 13.0 % [place] % (Auto) 2.7 % Eos % (Auto) 0.9 % Baso % (Auto) 0.5 % Neut # (Auto) 3.59 (1.4-6.5) K/uL Lymph # (Auto) 0.57 L (1.2-3.4) K/uL [place] # (Auto) 0.12 (0.11-0.59) K/uL Eos # (Auto) 0.04 (0-0.5) K/uL Baso # (Auto) 0.02 (0-0.2) K/uL Immature Gran # (Auto) 0.03 H (0.00-0.02) K/uL PT 10.3 (9.0-12.0) Seconds INR 1.0 (0.9-1.1) Sodium 142 (136-145) mmol/L Potassium 4.5 (3.5-5.1) mmol/L Chloride 105 (98-107) mmol/L Carbon Dioxide 25 (21-32) mmol/L Anion Gap 12 H (3-11) BUN 25 H (6-23) mg/dl Creatinine 2.09 H (0.6-1.2) mg/dl Est Cr Clr Drug Dosing Not Reportable Est GFR ( Amer) 29.3 ml/min Est GFR (Non-Af Amer) 25.3 ml/min BUN/Creatinine Ratio 12.0 (10-20) Glucose 101 H (70-99(Fasting)) mg/dl Calcium 9.7 (8.5-10.1) mg/dl Phosphorus (2.5-4.9) mg/dl Magnesium (1.7-2.4) mg/dl Total Bilirubin 1.0 (0.2-1.0) mg/dl AST 23 (13-39) U/L ALT 32 (7-52) U/L Alkaline Phosphatase 97 (34-104) U/L Troponin I High Sens 7.1 (0-14) pg/ml Total Protein 6.7 (6.0-8.3) gm/dl Albumin 4.0 (3.4-5.0) gm/dl Globulin 2.7 (2.5-4.0) gm/dl Albumin/Globulin Ratio 1.5 (0.9-2) TSH (0.300-4.500) uIu/ml Urine Color Urine Appearance (Clear) Urine pH (4.5-7.5) Ur Specific [place] (1.000-1.030) Urine Protein (Negative) Urine Glucose (UA) (Negative) Urine Ketones (Negative) Urine Blood (Negative) Urine Nitrite (Negative) Urine Bilirubin (Negative) Urine Urobilinogen (Negative) Ur Leukocyte Esterase (Negative) Urine WBC (Auto) (0-5) /hpf Urine RBC (Auto) (0-4) /hpf U Hyaline Cast (Auto) (0-5) /lpf U Epithel Cells (Auto) (0-5) /lpf Urine Bacteria (Auto) (Negative) SARS-CoV-2 (PCR) (Negative) Influenza Type A (PCR) (Neg) Influenza Type B (PCR) (Neg) RSV (RT-PCR) (Neg) 03/08/22 03/08/22 03/08/22 Range/Units 19:15 19:15 20:32 WBC (4.8-10.8) K/uL RBC (4.2-5.4) M/uL Hgb (12.0-16.0) g/dL Hct (37-47) % MCV (80-100) fL MCH (25-34) pg MCHC (32-36) g/dL RDW Std Deviation (36.4-46.3) fL RDW Coeff of Sebastián (11.5-14.5) % Plt Count (130-400) K/uL MPV (7.4-10.4) fL Immature Gran % (Auto) % Neut % (Auto) % Lymph % (Auto) % [place] % (Auto) % Eos % (Auto) % Baso % (Auto) % Neut # (Auto) (1.4-6.5) K/uL Lymph # (Auto) (1.2-3.4) K/uL [place] # (Auto) (0.11-0.59) K/uL Eos # (Auto) (0-0.5) K/uL Baso # (Auto) (0-0.2) K/uL Immature Gran # (Auto) (0.00-0.02) K/uL PT (9.0-12.0) Seconds INR (0.9-1.1) Sodium (136-145) mmol/L Potassium (3.5-5.1) mmol/L Chloride (98-107) mmol/L Carbon Dioxide (21-32) mmol/L Anion Gap (3-11) BUN (6-23) mg/dl Creatinine (0.6-1.2) mg/dl Est Cr Clr Drug Dosing Est GFR ( Amer) ml/min Est GFR (Non-Af Amer) ml/min BUN/Creatinine Ratio (10-20) Glucose (70-99(Fasting)) mg/dl Calcium (8.5-10.1) mg/dl Phosphorus 3.5 (2.5-4.9) mg/dl Magnesium 2.1 (1.7-2.4) mg/dl Total Bilirubin (0.2-1.0) mg/dl AST (13-39) U/L ALT (7-52) U/L Alkaline Phosphatase (34-104) U/L Troponin I High Sens (0-14) pg/ml Total Protein (6.0-8.3) gm/dl Albumin (3.4-5.0) gm/dl Globulin (2.5-4.0) gm/dl Albumin/Globulin Ratio (0.9-2) TSH 1.157 (0.300-4.500) uIu/ml Urine Color Urine Appearance (Clear) Urine pH (4.5-7.5) Ur Specific [place] (1.000-1.030) Urine Protein (Negative) Urine Glucose (UA) (Negative) Urine Ketones (Negative) Urine Blood (Negative) Urine Nitrite (Negative) Urine Bilirubin (Negative) Urine Urobilinogen (Negative) Ur Leukocyte Esterase (Negative) Urine WBC (Auto) (0-5) /hpf Urine RBC (Auto) (0-4) /hpf U Hyaline Cast (Auto) (0-5) /lpf U Epithel Cells (Auto) (0-5) /lpf Urine Bacteria (Auto) (Negative) SARS-CoV-2 (PCR) NEGATIVE (Negative) Influenza Type A (PCR) Negative (Neg) Influenza Type B (PCR) Negative (Neg) RSV (RT-PCR) Negative (Neg) 03/08/22 Range/Units 22:40 WBC (4.8-10.8) K/uL RBC (4.2-5.4) M/uL Hgb (12.0-16.0) g/dL Hct (37-47) % MCV (80-100) fL MCH (25-34) pg MCHC (32-36) g/dL RDW Std Deviation (36.4-46.3) fL RDW Coeff of Sebastián (11.5-14.5) % Plt Count (130-400) K/uL MPV (7.4-10.4) fL Immature Gran % (Auto) % Neut % (Auto) % Lymph % (Auto) % [place] % (Auto) % Eos % (Auto) % Baso % (Auto) % Neut # (Auto) (1.4-6.5) K/uL Lymph # (Auto) (1.2-3.4) K/uL [place] # (Auto) (0.11-0.59) K/uL Eos # (Auto) (0-0.5) K/uL Baso # (Auto) (0-0.2) K/uL Immature Gran # (Auto) (0.00-0.02) K/uL PT (9.0-12.0) Seconds INR (0.9-1.1) Sodium (136-145) mmol/L Potassium (3.5-5.1) mmol/L Chloride (98-107) mmol/L Carbon Dioxide (21-32) mmol/L Anion Gap (3-11) BUN (6-23) mg/dl Creatinine (0.6-1.2) mg/dl Est Cr Clr Drug Dosing Est GFR ( Amer) ml/min Est GFR (Non-Af Amer) ml/min BUN/Creatinine Ratio (10-20) Glucose (70-99(Fasting)) mg/dl Calcium (8.5-10.1) mg/dl Phosphorus (2.5-4.9) mg/dl Magnesium (1.7-2.4) mg/dl Total Bilirubin (0.2-1.0) mg/dl AST (13-39) U/L ALT (7-52) U/L Alkaline Phosphatase (34-104) U/L Troponin I High Sens (0-14) pg/ml Total Protein (6.0-8.3) gm/dl Albumin (3.4-5.0) gm/dl Globulin (2.5-4.0) gm/dl Albumin/Globulin Ratio (0.9-2) TSH (0.300-4.500) uIu/ml Urine Color Yellow Urine Appearance Cloudy A (Clear) Urine pH 5.0 (4.5-7.5) Ur Specific [place] 1.018 (1.000-1.030) Urine Protein 1+ H (Negative) Urine Glucose (UA) Negative (Negative) Urine Ketones 1+ H (Negative) Urine Blood Trace H (Negative) Urine Nitrite Positive A (Negative) Urine Bilirubin Negative (Negative) Urine Urobilinogen Negative (Negative) Ur Leukocyte Esterase 1+ H (Negative) Urine WBC (Auto) >30 H (0-5) /hpf Urine RBC (Auto) 0-4 (0-4) /hpf U Hyaline Cast (Auto) 1-5 (0-5) /lpf U Epithel Cells (Auto) >30 H (0-5) /lpf Urine Bacteria (Auto) 4+ H (Negative) SARS-CoV-2 (PCR) (Negative) Influenza Type A (PCR) (Neg) Influenza Type B (PCR) (Neg) RSV (RT-PCR) (Neg) Administered Medications Discontinued Medications Acetaminophen (Acetaminophen 325 Mg Tab) 650 mg PO Q4H PRN PRN Reason: pain/fever Stop: 04/07/22 23:56 Last Admin: 03/10/22 10:10 Dose: 650 mg Documented by: [id number] Sodium Chloride (Nss 1000ml) 500 mls @ 999 mls/hr IV .Q31M ONE Stop: 03/08/22 21:25 Last Infusion: 03/08/22 21:33 Dose: 0 mls/hr Documented by: [id number] Admin: 03/08/22 21:01 Dose: 999 mls/hr Documented by: [id number] Sodium Chloride (Nss 1000ml) 1,000 mls @ 150 mls/hr IV .Q6H40M DELANEY Stop: 04/07/22 20:59 Last Infusion: 03/09/22 04:09 Dose: 0 mls/hr Documented by: [id number] Infusion: 03/09/22 04:08 Dose: 0 mls/hr Documented by: [id number] Admin: 03/08/22 23:09 Dose: 150 mls/hr Documented by: [id number] Sodium Chloride (Nss 1000ml) 1,000 mls @ 150 mls/hr IV .Q6H40M DELANEY Stop: 04/07/22 21:44 Last Admin: 03/08/22 23:28 Dose: Not Given Documented by: [id number] Promethazine HCl (Phenergan) 12.5 mg in 50.5 mls @ 202 mls/hr IV NOW STA Stop: 03/08/22 22:51 Last Infusion: 03/08/22 23:28 Dose: 0 mls/hr Documented by: [id number] Admin: 03/08/22 23:08 Dose: 202 mls/hr Documented by: [id number] Ceftriaxone Sodium (Rocephin) 1,000 mg in 50 mls @ 100 mls/hr IV NOW STA Stop: 03/09/22 00:14 Last Infusion: 03/09/22 01:11 Dose: 0 mls/hr Documented by: [id number] Admin: 03/09/22 00:11 Dose: 100 mls/hr Documented by: [id number] Sodium Chloride (Nss 1000ml) 1,000 mls @ 80 mls/hr IV .[id number] DELANEY Stop: 03/09/22 12:26 Last Infusion: 03/09/22 14:52 Dose: 0 mls/hr Documented by: [id number] Admin: 03/09/22 02:07 Dose: 80 mls/hr Documented by: [id number] Ceftriaxone Sodium 1,000 mg/ (Dextrose) 60 mls @ 120 mls/hr IV Q24H DELANEY; Protocol Stop: 03/19/22 20:59 Last Infusion: 03/10/22 16:32 Dose: 0 mls/hr Documented by: [id number] Admin: 03/10/22 15:44 Dose: 120 mls/hr Documented by: [id number] Infusion: 03/09/22 22:04 Dose: 0 mls/hr Documented by: [id number] Admin: 03/09/22 21:26 Dose: 120 mls/hr Documented by: [id number] Promethazine HCl 12.5 mg/ (Sodium Chloride) 50.5 mls @ 202 mls/hr IV Q6H PRN PRN Reason: Nausea And Vomiting Stop: 04/08/22 08:35 Last Infusion: 03/10/22 09:21 Dose: 0 mls/hr Documented by: [id number] Admin: 03/10/22 08:25 Dose: 202 mls/hr Documented by: [id number] Infusion: 03/09/22 17:22 Dose: 0 mls/hr Documented by: [id number] Admin: 03/09/22 16:50 Dose: 202 mls/hr Documented by: [id number] Infusion: 03/09/22 09:40 Dose: 0 mls/hr Documented by: [id number] Admin: 03/09/22 09:19 Dose: 202 mls/hr Documented by: [id number] Miscellaneous (Patient's Height &/Or Weight Needed) 1 ea N/A Q2H DELANEY Stop: 04/08/22 00:44 Last Admin: 03/09/22 04:07 Dose: Not Given Documented by: [id number] Admin: 03/09/22 04:07 Dose: 1 ea Documented by: [id number] Ryan (Check Scopolamine Patch Placement) 1 ea N/A QS DELANEY Stop: 04/09/22 15:59 Last Admin: 03/10/22 15:43 Dose: 1 ea Documented by: [id number] Ryan (Remove Transderm-Scop Patch) 1 ea N/A Q72H DELANEY Stop: 04/09/22 14:14 Last Admin: 03/10/22 15:27 Dose: Not Given Documented by: [id number] Morphine Sulfate (Morphine Sulfate 2 Mg/Ml Carp) 1 mg IV Q4H PRN PRN Reason: Pain Stop: 03/22/22 23:56 Last Admin: 03/09/22 09:25 Dose: 1 mg Documented by: [id number] Admin: 03/09/22 04:59 Dose: 1 mg Documented by: [id number] Ondansetron HCl (Ondansetron Inj 2 Mg/Ml 2 Ml Vial) 4 mg IV NOW STA Stop: 03/08/22 20:03 Last Admin: 03/08/22 20:08 Dose: 4 mg Documented by: [id number] Ondansetron HCl (Ondansetron Inj 2 Mg/Ml 2 Ml Vial) 4 mg IV NOW STA Stop: 03/08/22 20:56 Last Admin: 03/08/22 21:00 Dose: 4 mg Documented by: [id number] Ondansetron HCl (Ondansetron Inj 2 Mg/Ml 2 Ml Vial) 4 mg IV Q6H PRN PRN Reason: Nausea And Vomiting Stop: 04/07/22 23:56 Last Admin: 03/10/22 12:58 Dose: 4 mg Documented by: [id number] Admin: 03/09/22 21:33 Dose: 4 mg Documented by: [id number] Admin: 03/09/22 11:28 Dose: 4 mg Documented by: [id number] Admin: 03/09/22 04:29 Dose: 4 mg Documented by: [id number] Pantoprazole Sodium (Pantoprazole 40 Mg Tab) 40 mg PO DAILY DELANEY Stop: 04/08/22 08:59 Last Admin: 03/10/22 08:25 Dose: 40 mg Documented by: [id number] Admin: 03/09/22 09:34 Dose: 40 mg Documented by: [id number] Pregabalin (Pregabalin 150 Mg Cap) 150 mg PO BID DELANEY Stop: 04/08/22 08:59 Last Admin: 03/10/22 08:25 Dose: 150 mg Documented by: [id number] Admin: 03/09/22 21:26 Dose: 150 mg Documented by: [id number] Admin: 03/09/22 09:34 Dose: 150 mg Documented by: [id number] Scopolamine (Scopolamine 1 Mg Tdsy) 1 mg TD Q72H [facility] Stop: 04/09/22 14:14 Last Admin: 03/10/22 15:28 Dose: 1 mg Documented by: [id number] Venlafaxine HCl (Venlafaxine Hcl 75 Mg Tab) 75 mg PO DAILY [facility] Stop: 04/08/22 08:59 Last Admin: 03/09/22 10:53 Dose: 75 mg Documented by: [id number] Venlafaxine HCl (Venlafaxine Hcl 37.5 Mg Tab) 75 mg PO DAILY [facility]ANEY Stop: 04/09/22 08:59 Last Admin: 03/10/22 08:25 Dose: 75 mg Documented by: [id number] Imaging Data Radiologist's Impression: Chest X-Ray 03/08/22 19:18 XR chest 1V portable CLINICAL HISTORY: weakness. Evaluate cardiopulmonary status COMPARISON STUDY: 12/09/2021 TECHNIQUE: 1 view of the chest FINDINGS: Single frontal view of the chest demonstrates the cardiomediastinal silhouette to be within normal limits. The lungs are clear of alveolar opacities. There is no evidence for pleural effusion. There is no evidence for vascular congestion. There is no acute osseous pathology. IMPRESSION: 1. No acute cardiopulmonary disease. ACT 112: Negative or not required by law. Electronically signed by: Nadeem Bai M.D. 03/08/2022 7:[address] 03/08/22 19:52 CT head/brain wo con CLINICAL HISTORY: brain CA, on chemo, BURNS and vomiting COMPARISON STUDY: 12/09/2021 and MRI brain from 02/25/2022 CT DOSE: 455.23 mGycm TECHNIQUE: Standard CT of the Brain was performed without IV contrast. A dose lowering technique was utilized adhering to the principles of ALARA. FINDINGS: Extraaxial space: There is no evidence for subdural hematoma. There are no extra-axial fluid collections. Ventricles and cisterns: The ventricles are normal in size and configuration. There is no evidence for midline shift or mass effect. Parenchyma: There is no subarachnoid or intraparenchymal hemorrhage. There is no evidence for an acute infarct or cerebral edema. There is mild cerebral cortical atrophy and decreased attenuation in the periventricular white matter representing remote small vessel disease. There is again abnormal masslike density within the vermis of the cerebellum in the midline and slightly to the left. This appears essentially unchanged from previous CT and MRI. No new lesions are identified on this noncontrast study. Osseous structures: There is no evidence for an acute fracture. The visualized paranasal sinuses are clear. The mastoid air cells are clear bilaterally. Soft tissues: There is no evidence for focal soft tissue swelling. IMPRESSION: 1. No acute intracerebral pathology. 2. There is again evidence for soft tissue mass within the vermis of the cerebellum which is essentially unchanged. 3. No new lesions are identified on this limited noncontrast study. The patient has no symptoms, follow-up MRI of the brain without and with contrast is recommended for further evaluation. ACT 112: Negative or not required by law. Electronically signed by: Nadeem Bai M.D. 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
[2022-03-08] MEDS ORDERED: SODIUM CHLORIDE 0.9% 1000ML 500 ML IV ONE (20:55)
--- NOTE | 2022-03-08 20:56 | CT Scan Report ---
CT head/brain wo con CLINICAL HISTORY: brain CA, on chemo, BURNS and vomiting COMPARISON STUDY: 12/09/2021 and MRI brain from 02/25/2022 CT DOSE: 455.23 mGycm TECHNIQUE: Standard CT of the Brain was performed without IV contrast. A dose lowering technique was utilized adhering to the principles of ALARA. FINDINGS: Extraaxial space: There is no evidence for subdural hematoma. There are no extra-axial fluid collecti ons. Ventricles and cisterns: The ventricles are normal in size and configuration. There is no evidence fo r midline shift or mass effect. Parenchyma: There is no subarachnoid or intraparenchymal hemorrhage. There is no evidence for an acut e infarct or cerebral edema. There is mild cerebral cortical atrophy and decreased attenuation in the periventricular white matter representing remote small vessel disease. There is again abnormal masslike density within the vermis of the cerebellum in the midline and sligh tly to the left. This appears essentially unchanged from previous CT and MRI. No new lesions are iden tified on this noncontrast study. Osseous structures: There is no evidence for an acute fracture. The visualized paranasal sinuses are clear. The mastoid air cells are clear bilaterally. Soft tissues: There is no evidence for focal soft tissue swelling. IMPRESSION: 1. No acute intracerebral pathology. 2. There is again evidence for soft tissue mass within the vermis of the cerebellum which is essentia lly unchanged. 3. No new lesions are identified on this limited noncontrast study. The patient has no symptoms, foll ow-up MRI of the brain without and with contrast is recommended for further evaluation. ACT 112: Negative or not required by law. Electronically signed by: Nadeem Bai M.D. 03/08/2022 8:53 PM
[2022-03-08] MEDS ORDERED: SODIUM CHLORIDE 0.9% 1000ML 1,000 ML IV SCH ×3 (21:00→23:57)
[2022-03-08 21:25] LABS: Influenza A virus by PCR Negative (Neg); Influenza B virus by PCR Negative (Neg); RSV by PCR Negative (Neg); SARS CoV2 RNA(COVID-19) InHosp NEGATIVE (Negative)
[2022-03-08] MEDS ORDERED: PROMETHAZINE 12.5 MG/50.5 ML BAG IV STA (22:37)
--- NOTE | 2022-03-08 22:41 | History & Physical Report ---
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 Patient had recent fall with head trauma. CT of the head is unremarkable for acute pathology. Cerebellar lesion is again noted and stable in size. Neurological exam is significant for mild dysmetria as well as mildly slow and dysarthric speech. Ddx to include progression of metastatic disease in brain, edema. Possibly secondary to recent fall - post-concussive symptoms. Patient also with UTI - could possibly be exacerbating symptoms as well. -Admit to medical -Neuro checks with GCS q 4 hours -MRI brain ordered - patient is not to receive contrast due to renal compromise -Hematology/Oncology consultation appreciated -Zofran as needed for nausea -Morphine as needed for pain -Meclizine as needed for dizziness -Ativan as needed for anxiety (2) Lung cancer metastatic to brain: Plan: Patient with small cell lung cancer with known metastatic lesion to the cerebellum. She has completed 6 rounds of chemotherapy as well as SBRT. Presently on Keytruda and Pembrolizumab with last dose two days ago. 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 Possibly secondary to volume contraction. IVF given in ER -Avoid nephrotoxic agents -Renal dosing where needed -NSS at 80mL/hr x 1 liter -Repeat chemistry in AM (5) GERD (gastroesophageal reflux disease): Plan: Chronic. Well controlled with medication -Continue Protonix (6) Depression: Plan: Chronic -Continue Venlafaxine 75mg po daily (7) UTI (urinary tract infection): Plan: UA suggestive of infection -Follow culture -Ceftriaxone 1gm IV daily Plan: F/E/N - NSS at 80mL/hr x 1 liter, monitor electrolytes, regular diet as tolerated Ppx - SCDs Code - Full Dispo -Admit to medical with telemetry History of Present Illness Chief Complaint: dizziness, headache, slurred speech Primary Care Provider: DO Lori Brothers is a pleasant 61yo female presenting to [facility] with her with complaint of slurred speech, poor balance, BURNS and nausea. Patient with history of Stage IIIa (T3, N2, M0) small cell lung cancer which was diagnosed by FNA biopsy on 04/21/20. She was treated with 6 cycles of Cisplatin/Etoposide and XRT with radiographic improvement in tumor size. In May [address] demonstrated interval growth of LUCIA mass. On 06/06/21 she developed gait imbalance and headaches. She was seen in the ER at that time and imaging revealed metastatic disease to the cerebellum. She was started on Pembrolizumab/Ketruda and had SBRT and steroids. Recent CT on 11/21/21 unfortunately demonstrated disease progression. She reports baseline imbalance as well as occasional headaches. She had an MRI performed on 02/25/22 which revealed no evidence of acute abnormality such as infarct. Old cerebellar vermis lesion is again noted, compatible with history of metastatic disease. Patient received chemotherapy treatment on 03/07/22. She developed nausea and vomiting on the AM of 03/08/22. She did have a ground level fall at home and hit the right side of her head. Since then she has had progressive functional decline. She reports worsening gait instability - prior she was able to get up with moderate assistance. Now it is very difficult to help her ambulate. She has also had nausea with occasional vomiting, PO intolerance and poor appetite. Most concerning is her slurred speech. She has also been having word-finding difficulty as well. She has a BURNS that is worse than her baseline discomfort as well as blurry vision. She denies fever, chills, chest pain, cough, SOB. Denies abdominal pain or diarrhea. In the ER she is afebrile, HD stable, NAD ER Course: Zofran x 2, NSS Allergies Allergy/AdvReac Type Severity Reaction Status Date / Time lisinopril AdvReac Mild Cough Verified 03/08/22 19:42 Home Medications Medication Instructions Recorded Confirmed Type ondansetron HCl 4 mg tablet 4 mg PO Q8H PRN #30 tab 06/07/21 03/08/22 Rx (Zofran) omeprazole 20 mg tablet,delayed 20 mg PO DAILY 08/22/21 03/08/22 History release pantoprazole 40 mg tablet,delayed 40 mg PO DAILY 08/22/21 03/08/22 History release pregabalin 150 mg capsule 150 mg PO BID #60 cap 11/22/21 03/08/22 Rx meclizine 25 mg tablet 25 mg PO Q6H PRN #60 tab 01/23/22 03/08/22 Rx venlafaxine 75 mg tablet 75 mg PO DAILY #90 tab 01/23/22 03/08/22 Rx lorazepam 0.5 mg tablet See Rx Instructions PO Q8H PRN #60 03/07/22 03/08/22 Rx tab oxycodone 5 mg tablet 5 mg PO Q4H PRN #15 tab 03/07/22 03/08/22 Rx Past Med/Surg History Medical History Anemia Anxiety Arthritis Bilateral cataracts Depression Esophageal spasm Esophageal stenosis Esophageal ulcer GERD (gastroesophageal reflux disease) Hypercholesterolemia Hypomagnesemia Hypotension Medical marijuana use Pancytopenia Renal insufficiency Restless leg syndrome Small cell lung cancer (04/21/20) Symptomatic anemia Trimalleolar fracture of left ankle Surgical History H/O arthroscopic knee surgery H/O tubal ligation H/O: section History of bronchoscopy (04/21/20) History of esophagogastroduodenoscopy (EGD) History of excision of pilonidal cyst History of open reduction and internal fixation (ORIF) procedure (07/2020) History of tooth extraction Port-A-Cath in place (05/25/20) S/P carpal tunnel release S/P tonsillectomy Family History Mother Cancer Hypertension Father Hearing loss Grandmother (Maternal) No problems noted. Uncle No problems noted. Brother No problems noted. Brother No problems noted. Sister No problems noted. Grandfather (Maternal) No problems noted. Son No problems noted. Daughter No problems noted. Grandmother Cancer Grandfather Cancer Other No family history of adverse response to anesthesia No family history of allergies No family history of bleeding disorder Denies family history of Ovarian cancer Heart disease Breast cancer Lung cancer Asthma Social History Smoking Status: Never smoker Tobacco Type: Cigarettes Age Started Using Tobacco: 20; Age Quit Using Tobacco: 60; packs per day: 1; Years Smoked: 40; Second Hand Exposure: No; Hx Alcohol Use: No Hx Substance Use: No Preferred Language: Vietnamese Communication Ability: Effective Visual Impairment: No Limitations Hearing Ability: Normal Corporate Responsibility Officer Required: No Beliefs That Will Affect Care: None marital status: Current Living Situation: Spouse current occupational status: employed 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 How many Children do You have: 0 Feels Safe at Home: Yes Childhood Exposure to Second-Hand Smoke: Yes caffeine: Yes (ice tea) during the past year weight has: remained stable Dental Care, Regularly: Yes Physical Activity Frequency: Does not Exercise Seatbelt Use: always Sunscreen Use: No Assistive Devices: None Review of Systems Review of Systems: All systems reviewed & are unremarkable except as noted in HPI & below Physical Exam Physical Exam: General: patient resting comfortably, NAD, non-toxic in appe arance, AA&O x 4 Skin: warm, dry, intact, no rashes or lesions HEENT: Bruise present on right fronto-temporal region, pupils small bilaterally, reactive to light, EOMI, anicteric sclera, conjunctiva without injection, external ear normal to inspection and nontender, nares patent, moist mucus membranes, dentition intact, no oropharyngeal lesions, neck supple, trachea midline, no LAD, no thyromegaly, no JVD Heart: +S1/S2, regular, no m/r/g Lungs: equal air entry bilaterally, no rales/rhonchi/wheezes Abd: +BS, soft, NT/ND, no masses/organomegaly/ascites Ext: warm, 2+ pulses in UE/LE bilaterally, no clubbing/cyanosis or edema Neuro: speech is slow, mildly dysarthric but appropriate, no facial droop, CN II - XII grossly intact, sensation to light touch intact in UE/LE bilaterally, MS 5/5 in UE/LE bilaterally, mild dysmetria noted with heknur-bd-qxfu testing, mfvw-cq-rxep is intact, gait not personally assessed Results & Data Results & Data ([facility]) Vital Signs (Past 12 Hours) Vital Signs Temp Pulse Resp BP Pulse Ox 03/08/22 18:43 36.5 C 96 H 20 149/86 H 93 Laboratory Results Laboratory Results WBC 4.37 K/uL (4.8-10.8) L 03/08/22 19:15 RBC 3.63 M/uL (4.2-5.4) L 03/08/22 19:15 Hgb 11.1 g/dL (12.0-16.0) L 03/08/22 19:15 Hct 34.0 % (37-47) L 03/08/22 19:15 MCV 93.7 fL (80-100) 03/08/22 19:15 MCH 30.6 pg (25-34) 03/08/22 19:15 MCHC 32.6 g/dL (32-36) 03/08/22 19:15 RDW Std Deviation 64.5 fL (36.4-46.3) H 03/08/22 19:15 RDW Coeff of Sebastián 18.8 % (11.5-14.5) H 03/08/22 19:15 Plt Count 207 K/uL (130-400) 03/08/22 19:15 MPV 9.9 fL (7.4-10.4) 03/08/22 19:15 Immature Gran % (Auto) 0.7 % 03/08/22 19:15 Neut % (Auto) 82.2 % 03/08/22 19:15 Lymph % (Auto) 13.0 % 03/08/22 19:15 Emmet % (Auto) 2.7 % 03/08/22 19:15 Eos % (Auto) 0.9 % 03/08/22 19:15 Baso % (Auto) 0.5 % 03/08/22 19:15 Neut # (Auto) 3.59 K/uL (1.4-6.5) 03/08/22 19:15 Lymph # (Auto) 0.57 K/uL (1.2-3.4) L 03/08/22 19:15 Emmet # (Auto) 0.12 K/uL (0.11-0.59) 03/08/22 19:15 Eos # (Auto) 0.04 K/uL (0-0.5) 03/08/22 19:15 Baso # (Auto) 0.02 K/uL (0-0.2) 03/08/22 19:15 Immature Gran # (Auto) 0.03 K/uL (0.00-0.02) H 03/08/22 19:15 PT 10.3 Seconds (9.0-12.0) 03/08/22 19:15 INR 1.0 (0.9-1.1) 03/08/22 19:15 Sodium 142 mmol/L (136-145) 03/08/22 19:15 Potassium 4.5 mmol/L (3.5-5.1) 03/08/22 19:15 Chloride 105 mmol/L (98-107) 03/08/22 19:15 Carbon Dioxide 25 mmol/L (21-32) 03/08/22 19:15 Anion Gap 12 (3-11) H 03/08/22 19:15 BUN 25 mg/dl (6-23) H 03/08/22 19:15 Creatinine 2.09 mg/dl (0.6-1.2) H 03/08/22 19:15 Est Cr Clr Drug Dosing Not Reportable 03/08/22 19:15 Est GFR ( Amer) 29.3 ml/min 03/08/22 19:15 Est GFR (Non-Af Amer) 25.3 ml/min 03/08/22 19:15 BUN/Creatinine Ratio 12.0 (10-20) 03/08/22 19:15 Glucose 101 mg/dl (70-99(Fasting)) H 03/08/22 19:15 Calcium 9.7 mg/dl (8.5-10.1) 03/08/22 19:15 Total Bilirubin 1.0 mg/dl (0.2-1.0) 03/08/22 19:15 AST 23 U/L (13-39) 03/08/22 19:15 ALT 32 U/L (7-52) 03/08/22 19:15 Alkaline Phosphatase 97 U/L (34-104) 03/08/22 19:15 Troponin I High Sens 7.1 pg/ml (0-14) 03/08/22 19:15 Total Protein 6.7 gm/dl (6.0-8.3) 03/08/22 19:15 Albumin 4.0 gm/dl (3.4-5.0) 03/08/22 19:15 Globulin 2.7 gm/dl (2.5-4.0) 03/08/22 19:15 Albumin/Globulin Ratio 1.5 (0.9-2) 03/08/22 19:15 TSH 1.157 uIu/ml (0.300-4.500) 03/08/22 19:15 Urine Color Yellow 03/08/22 22:40 Urine Appearance Cloudy (Clear) A 03/08/22 22:40 Urine pH 5.0 (4.5-7.5) 03/08/22 22:40 Ur Specific [place] 1.018 (1.000-1.030) 03/08/22 22:40 Urine Protein 1+ (Negative) H 03/08/22 22:40 Urine Glucose (UA) Negative (Negative) 03/08/22 22:40 Urine Ketones 1+ (Negative) H 03/08/22 22:40 Urine Blood Trace (Negative) H 03/08/22 22:40 Urine Nitrite Positive (Negative) A 03/08/22 22:40 Urine Bilirubin Negative (Negative) 03/08/22 22:40 Urine Urobilinogen Negative (Negative) 03/08/22 22:40 Ur Leukocyte Esterase 1+ (Negative) H 03/08/22 22:40 Urine WBC (Auto) >30 /hpf (0-5) H 03/08/22 22:40 Urine RBC (Auto) 0-4 /hpf (0-4) 03/08/22 22:40 U Hyaline Cast (Auto) 1-5 /lpf (0-5) 03/08/22 22:40 U Epithel Cells (Auto) >30 /lpf (0-5) H 03/08/22 22:40 Urine Bacteria (Auto) 4+ (Negative) H 03/08/22 22:40 SARS-CoV-2 (PCR) NEGATIVE (Negative) 03/08/22 20:32 Influenza Type A (PCR) Negative (Neg) 03/08/22 20:32 Influenza Type B (PCR) Negative (Neg) 03/08/22 20:32 RSV (RT-PCR) Negative (Neg) 03/08/22 20:32 Impressions Chest X-Ray 03/08/22 19:18 XR chest 1V portable CLINICAL HISTORY: weakness. Evaluate cardiopulmonary status COMPARISON STUDY: 12/09/2021 TECHNIQUE: 1 view of the chest FINDINGS: Single frontal view of the chest demonstrates the cardiomediastinal silhouette to be within normal limits. The lungs are clear of alveolar opacities. There is no evidence for pleural effusion. There is no evidence for vascular congestion. There is no acute osseous pathology. IMPRESSION: 1. No acute cardiopulmonary disease. ACT 112: Negative or not required by law. Electronically signed by: Nadeem Bai M.D. 03/08/2022 7:[address] 03/08/22 19:52 CT head/brain wo con CLINICAL HISTORY: brain CA, on chemo, BURNS and vomiting COMPARISON STUDY: 12/09/2021 and MRI brain from 02/25/2022 CT DOSE: 455.23 mGycm TECHNIQUE: Standard CT of the Brain was performed without IV contrast. A dose lowering technique was utilized adhering to the principles of ALARA. FINDINGS: Extraaxial space: There is no evidence for subdural hematoma. There are no extra-axial fluid collections. Ventricles and cisterns: The ventricles are normal in size and configuration. There is no evidence for midline shift or mass effect. Parenchyma: There is no subarachnoid or intraparenchymal hemorrhage. There is no evidence for an acute infarct or cerebral edema. There is mild cerebral cortical atrophy and decreased attenuation in the periventricular white matter representing remote small vessel disease. There is again abnormal masslike density within the vermis of the cerebellum in the midline and slightly to the left. This appears essentially unchanged from previous CT and MRI. No new lesions are identified on this noncontrast study. Osseous structures: There is no evidence for an acute fracture. The visualized paranasal sinuses are clear. The mastoid air cells are clear bilaterally. Soft tissues: There is no evidence for focal soft tissue swelling. IMPRESSION: 1. No acute intracerebral pathology. 2. There is again evidence for soft tissue mass within the vermis of the cerebellum which is essentially unchanged. 3. No new lesions are identified on this limited noncontrast study. The patient has no symptoms, follow-up MRI of the brain without and with contrast is recommended for further evaluation. ACT 112: Negative or not required by law. Electronically signed by: Nadeem Bai M.D. 03/08/2022 8:53 PM Code Status & VTE Plan VTE Prophylaxis Plan VTE Prophylaxis will be ordered: Yes PG Care Time/CCT Total # of Minutes Spent Total Time Spent with Patient: Total time spent is greater than 50% in coordination of care (as documented) at patient's floor/unit and/or counseling patient: Coding Level of Care Code 25095 Initial Inpt Care Lvl 3 Diagnoses Lung cancer metastatic to brain C34.90; C79.31 Peripheral neuropathy due to chemotherapy G62.0; T45.1X5A Chronic kidney disease N18.9 GERD (gastroesophageal reflux disease) K21.9 Depression F32.9 UTI (urinary tract infection) N39.0 Dysarthria R47.1
[2022-03-08 23:06] LABS: Appearance Urine Cloudy (Clear); Bacteria Urine Automated 4+ (Negative); Bilirubin Urine Negative (Negative); Blood Urine Trace (Negative); Color Urine Yellow; Epithelial Cell Urine Auto >30 /lpf (0-5); Glucose Urine UA Negative (Negative); Ketones Urine 1+ (Negative); Leukocyte Esterase Urine 1+ (Negative); Nitrite Urine Positive (Negative); Protein Urine 1+ (Negative); RBC Urine Automated 0-4 /hpf (0-4); Specific Gravity Urine 1.018 (1.000-1.030); Urobilinogen Urine Negative (Negative); WBC Urine Automated >30 /hpf (0-5)
[2022-03-08] MEDS ORDERED: cefTRIAXone SODIUM 1,000 MG/50 ML BAG IV STA (23:45)
[2022-03-08] MEDS ORDERED: LORazepam 1 MG TAB PO PRN (23:57)
[2022-03-08] MEDS ORDERED: ACETAMINOPHEN 325 MG TAB PO PRN (23:57)
[2022-03-08] MEDS ORDERED: MECLIZINE HCL 25 MG TAB PO PRN (23:57)
[2022-03-09 01:52] LABS: Magnesium 2.1 mg/dl (1.7-2.4); Phosphorus 3.5 mg/dl (2.5-4.9)
[2022-03-09] MEDS: Patient's HEIGHT &/or WEIGHT Needed SCH ×2 (04:07)
[2022-03-09] MEDS ORDERED: Nursing to Pharmacy Communication SCH (04:15)
[2022-03-09] MEDS: ONDANSETRON INJ 2 MG/ML 2 ML VIAL IV PRN ×3 (04:29→21:33)
[2022-03-09] MEDS: MoRPHine SULFATE 2 MG/ML CARP IV PRN ×2 (04:59→09:25)
[2022-03-09 06:23] LABS: Basophils # (auto) 0.02 K/uL (0-0.2); Basophils % (auto) 0.5 %; Eosinophils # (auto) 0.05 K/uL (0-0.5); Eosinophils % (auto) 1.1 %; Hematocrit (blood only) 29.9 % (37-47); Hemoglobin 9.8 g/dL (12.0-16.0); Immature Granulocytes # (auto) 0.02 K/uL (0.00-0.02); Immature Granulocytes % (auto) 0.5 %; Lymphocytes # (auto) 0.65 K/uL (1.2-3.4); Lymphocytes % (auto) 14.7 %; Mean Corpuscular Hemoglobin 30.8 pg (25-34); Mean Corpuscular Hgb Conc 32.8 g/dL (32-36); Mean Platelet Volume 9.4 fL (7.4-10.4); Monocytes # (auto) 0.11 K/uL (0.11-0.59); Monocytes % (auto) 2.5 %; Neutrophils # (auto) 3.57 K/uL (1.4-6.5); Neutrophils % (auto) 80.7 %; Platelet Count 191 K/uL (130-400); RDW Coefficient of Variation 18.7 % (11.5-14.5); RDW Standard Deviation 63.9 fL (36.4-46.3); Red Blood Count 3.18 M/uL (4.2-5.4); White Blood Count 4.42 K/uL (4.8-10.8)
[2022-03-09 06:41] LABS: Albumin Level 3.5 gm/dl (3.4-5.0); BUN Creatinine Ratio 13.2 (10-20); Bilirubin Direct 0.1 mg/dl (0-0.2); Bilirubin,Total 0.8 mg/dl (0.2-1.0); Calcium 8.8 mg/dl (8.5-10.1); Creatinine Clr Calc Pharmacy 29.6 ml/min; Est GFR (African American) 32.9 ml/min; Est GFR (Non-African American) 28.4 ml/min; Potassium 4.5 mmol/L (3.5-5.1); Total Protein 5.8 gm/dl (6.0-8.3)
[2022-03-09] MEDS ORDERED: VENLAFAXINE HCL 75 MG TAB PO SCH (09:00)
[2022-03-09] MEDS: PROMETHAZINE HCL 12.5 MG in SODIUM CHLORIDE 0.9% 50 ML IV PRN ×2 (09:19→16:50)
[2022-03-09] MEDS: PREGABALIN 150 MG CAP PO SCH ×2 (09:34→21:26)
[2022-03-09] MEDS: PANTOprazole 40 MG TAB PO SCH (09:34)
--- NOTE | 2022-03-09 10:27 | Electrocardiogram Report ---
Test Reason : Blood Pressure : / mmHG Vent. Rate : 082 BPM Atrial Rate : 082 BPM P-R Int : 168 ms QRS Dur : 084 ms QT Int : 374 ms P-R-T Axes : 116 158 138 degrees QTc Int : 436 ms Suspect arm lead reversal, interpretation assumes no reversal Normal sinus rhythm Right axis deviation Abnormal ECG When compared with ECG of 09-DEC-2021 14:08, QRS axis Shifted right Limb lead reversal is present Confirmed by Paulo Kim ([id number]) on 03/09/2022 10:27:27 AM Referred By: REFERRED SELF Confirmed By:Paulo Kim
--- NOTE | 2022-03-09 11:03 | Hospitalist Progress Note ---
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 Patient had recent fall with head trauma. CT of the head is unremarkable for acute pathology. Cerebellar lesion is again noted and stable in size. Neurological exam is significant for mild dysmetria as well as mildly slow and dysarthric speech. Ddx to include progression of metastatic disease in brain, edema. Possibly secondary to recent fall - post-concussive symptoms. Patient also with UTI - could possibly be exacerbating symptoms as well. -Neuro checks with GCS q 4 hours -MRI brain ordered - patient is not to receive contrast due to renal compromise -Hematology/Oncology consultation appreciated -Zofran as needed for nausea, as it is ineffective, will order Phenergan 12.5mg q6h prn -Morphine as needed for pain -Meclizine as needed for dizziness -Ativan as needed for anxiety (2) Lung cancer metastatic to brain: Plan: Patient with small cell lung cancer with known metastatic lesion to the cerebellum. She has completed 6 rounds of chemotherapy as well as SBRT. Presently on Keytruda and Pembrolizumab with last dose two days ago. 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 Possibly secondary to volume contraction. IVF given in ER -Avoid nephrotoxic agents -Renal dosing where needed -NSS at 80mL/hr x 1 liter -Repeat chemistry this morning is slightly improved (6) GERD (gastroesophageal reflux disease): Plan: Chronic. Well controlled with medication -Continue Protonix (7) Depression: Plan: Chronic -Continue Venlafaxine 75mg po daily Plan: Await MRI and input from oncology PT/OT eval Phenergan as noted above for nausea Repeat labs in AM Plan to be d/w Dr. Muse Admission and Anticipated Discharge Date Admission Date: March 08, 2022 Subjective Patient seen on rounds this morning. She is resting comfortably in bed. She reports 3 episodes of bilious emesis. She currently is nauseated and states that the Zofran doesn't work well for her. No abdominal pain. She denies chest pain or dyspnea. Still feels that her speech is off. MRI has been ordered. She admits that her urine is malodorous but denies urgency, frequency, or dysuria. Denies fever/chills. Review of Systems Review of Systems: All systems reviewed and are unremarkable except as noted in HPI and below. Denies fever, chills, fatigue, headache, nasal congestion, sore throat, cough, chest pain, shortness of breath, palpitations, orthopnea, PND, abdominal pain, diarrhea, constipation, dysuria, hematuria, frequency, back pain, joint pain or swelling, easy bruising or bleeding, skin lesions or rashes. Physical Exam Physical Exam: GENERAL: 61 yo wd/wn middle aged WF. Pleasant, cooperative. NAD. LUNGS: Clear to auscultation bilaterally. No W/R/R. CARDIOVASCULAR: Regular rate and rhythm. ABDOMEN: Soft, non-tender and non-distended. BS normoactive x 4 quad. EXTREMITIES: No edema. Non-tender. Peripheral pulses +2/4. NEUROLOGIC: A&O x3. No significantly slurred speech or other neuro deficits. PSYCHIATRIC: Cooperative. Appropriate mood and affect. SKIN: Warm, dry, intact. No rashes or lesions. Results & Data Results & Data ([facility]) Vital Signs (Past 12 Hours) Vital Signs Temp Pulse Pulse Resp BP Pulse Ox 03/09/22 10:04 79 03/09/22 06:43 36.6 C 80 18 145/83 H 93 03/09/22 02:37 36.7 C 78 18 156/84 H 92 03/09/22 02:11 78 Laboratory Results 03/09/22 05:41 03/09/22 05:41 PG Care Time/CCT Total # of Minutes Spent Total Time Spent with Patient: Total time spent is greater than 50% in coordination of care (as documented) at patient's floor/unit and/or counseling patient: Coding Level of Care Code 69731 Subseq Hosp Care Lvl 2 Diagnoses Dysarthria R47.1 Lung cancer metastatic to brain C34.90; C79.31 Peripheral neuropathy due to chemotherapy G62.0; T45.1X5A Chronic kidney disease N18.9 GERD (gastroesophageal reflux disease) K21.9 Depression F32.9 UTI (urinary tract infection) N39.0
--- NOTE | 2022-03-09 12:55 | Magnetic Resonance Report ---
MRI OF THE BRAIN WITHOUT CONTRAST CLINICAL HISTORY: metastatic disease - slurred speech, balance difficulties. COMPARISON STUDY: MRI of the brain February 25, 2022. Head CT 03/08/2022. TECHNIQUE: Utilizing a 1.5 [place] magnet and dedicated coil, multiplanar, multiecho imaging of the bra in was performed without IV contrast. FINDINGS: There are no foci of restricted diffusion to suggest acute infarct. No acute intracranial h emorrhage is present. Ventricular system is unremarkable. Basal cisterns are patent. There are no ext ra axial collections. Appearance of the brain is unchanged since MRI of February 25, 2022 as well as MRI o f January 04, 2022. A 1.7 x 1.5 cm lesion within the vermis is suboptimally assessed on this unenhanced exam but appears unchanged. Adjacent T2 hyperintensity within the cerebellum is unchanged. White mat ter T2 hyperintensity within the supratentorial brain is also unchanged. No new lesions are identifie d although sensitivity is diminished on this unenhanced exam. There are no calvarial lesions. There i s mild polypoid mucosal thickening of the inferior left maxillary sinus. Minimal fluid within the kika ateral mastoid air cells is present. IMPRESSION: 1. No acute intracranial findings. 2. No significant change in a 1.7 x 1.5 cm lesion within the cerebellar vermis. Stable adjacent T2 hy perintensity within the cerebellum since previous MRIs of January 04, 2022 and February 25, 2022. 3. Stable supratentorial white matter T2 hyperintensity which likely reflects post radiation change. 4. No new lesions identified although sensitivity diminished on this unenhanced exam. ACT 112: Negative or not required by law. Electronically signed by: Adan Bacon M.D. 03/09/2022 12:53 PM
[2022-03-09] MEDS: cefTRIAXone SODIUM 1,000 MG in DEXTROSE 5% 50 ML IV SCH (21:26)
[2022-03-09 23:09] VITALS: O2SAT 90
[2022-03-10 06:30] LABS: Basophils # (auto) 0.02 K/uL (0-0.2); Basophils % (auto) 0.4 %; Eosinophils # (auto) 0.06 K/uL (0-0.5); Eosinophils % (auto) 1.1 %; Hematocrit (blood only) 32.6 % (37-47); Hemoglobin 10.5 g/dL (12.0-16.0); Immature Granulocytes # (auto) 0.01 K/uL (0.00-0.02); Immature Granulocytes % (auto) 0.2 %; Lymphocytes # (auto) 0.68 K/uL (1.2-3.4); Lymphocytes % (auto) 12.5 %; Mean Corpuscular Hemoglobin 30.1 pg (25-34); Mean Corpuscular Hgb Conc 32.2 g/dL (32-36); Mean Corpuscular Volume 93.4 fL (80-100); Mean Platelet Volume 9.9 fL (7.4-10.4); Monocytes % (auto) 1.8 %; Neutrophils # (auto) 4.57 K/uL (1.4-6.5); Platelet Count 213 K/uL (130-400); RDW Coefficient of Variation 18.3 % (11.5-14.5); Red Blood Count 3.49 M/uL (4.2-5.4); White Blood Count 5.44 K/uL (4.8-10.8)
[2022-03-10 06:55] LABS: BUN Creatinine Ratio 13.7 (10-20); Calcium 9.1 mg/dl (8.5-10.1); Est GFR (African American) 40.2 ml/min; Est GFR (Non-African American) 34.6 ml/min; Magnesium 1.8 mg/dl (1.7-2.4); Potassium 4.3 mmol/L (3.5-5.1)
[2022-03-10] MEDS: PANTOprazole 40 MG TAB PO SCH (08:25)
[2022-03-10] MEDS: PREGABALIN 150 MG CAP PO SCH (08:25)
[2022-03-10] MEDS: PROMETHAZINE HCL 12.5 MG in SODIUM CHLORIDE 0.9% 50 ML IV PRN (08:25)
[2022-03-10] MEDS ORDERED: VENLAFAXINE HCL 37.5 MG TAB PO SCH (09:00)
[2022-03-10] MEDS: ONDANSETRON INJ 2 MG/ML 2 ML VIAL IV PRN (12:58)
[2022-03-10] MEDS ORDERED: SCOPOLAMINE 1 MG TDSY TD SCH (14:15)
--- NOTE | 2022-03-10 14:17 | Hospitalist Progress Note ---
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 Patient had recent fall with head trauma. CT of the head is unremarkable for acute pathology. Cerebellar lesion is again noted and stable in size. Neurological exam is significant for mild dysmetria as well as mildly slow and dysarthric speech. Ddx to include progression of metastatic disease in brain, edema. Possibly secondary to recent fall - post-concussive symptoms. Patient also with UTI - could possibly be exacerbating symptoms as well. -Neuro checks with GCS q 4 hours -MRI brain ordered - patient is not to receive contrast due to renal compromise -Hematology/Oncology consultation appreciated -Zofran as needed for nausea, as it is ineffective, will order Phenergan 12.5mg q6h prn -Morphine as needed for pain -Meclizine as needed for dizziness -Ativan as needed for anxiety (2) Lung cancer metastatic to brain: Plan: Patient with small cell lung cancer with known metastatic lesion to the cerebellum. She has completed 6 rounds of chemotherapy as well as SBRT. Presently on Keytruda and Pembrolizumab with last dose two days ago. 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 Possibly secondary to volume contraction. IVF given in ER -Avoid nephrotoxic agents -Renal dosing where needed -NSS at 80mL/hr x 1 liter -Repeat chemistry this morning is slightly improved (6) GERD (gastroesophageal reflux disease): Plan: Chronic. Well controlled with medication -Continue Protonix (7) Depression: Plan: Chronic -Continue Venlafaxine 75mg po daily Plan: Await MRI and input from oncology PT/OT eval Phenergan as noted above for nausea Repeat labs in AM Plan to be d/w Dr. Muse Admission and Anticipated Discharge Date Admission Date: March 08, 2022 Subjective Patient seen on rounds this morning. She is resting comfortably in bed. She reports 3 episodes of bilious emesis. She currently is nauseated and states that the Zofran doesn't work well for her. No abdominal pain. She denies chest pain or dyspnea. Still feels that her speech is off. MRI has been ordered. She admits that her urine is malodorous but denies urgency, frequency, or dysuria. Denies fever/chills. Review of Systems Review of Systems: All systems reviewed and are unremarkable except as noted in HPI and below. Denies fever, chills, fatigue, headache, nasal congestion, sore throat, cough, chest pain, shortness of breath, palpitations, orthopnea, PND, abdominal pain, diarrhea, constipation, dysuria, hematuria, frequency, back pain, joint pain or swelling, easy bruising or bleeding, skin lesions or rashes. Physical Exam Physical Exam: GENERAL: 61 yo wd/wn middle aged WF. Pleasant, cooperative. NAD. LUNGS: Clear to auscultation bilaterally. No W/R/R. CARDIOVASCULAR: Regular rate and rhythm. ABDOMEN: Soft, non-tender and non-distended. BS normoactive x 4 quad. EXTREMITIES: No edema. Non-tender. Peripheral pulses +2/4. NEUROLOGIC: A&O x3. No significantly slurred speech or other neuro deficits. PSYCHIATRIC: Cooperative. Appropriate mood and affect. SKIN: Warm, dry, intact. No rashes or lesions. Results & Data Results & Data ([facility]) Vital Signs (Past 12 Hours) Vital Signs Temp Pulse Pulse Resp BP Pulse Ox 03/10/22 11:22 36.7 C 81 16 143/78 H 90 03/10/22 10:25 85 03/10/22 07:28 36.8 C 80 16 133/75 90 03/10/22 02:45 37 C 84 20 137/80 90 PG Care Time/CCT Total # of Minutes Spent Total Time Spent with Patient: Total time spent is greater than 50% in coordination of care (as documented) at patient's floor/unit and/or counseling patient: Coding Diagnoses Dysarthria R47.1 Lung cancer metastatic to brain C34.90; C79.31 UTI (urinary tract infection) N39.0 Peripheral neuropathy due to chemotherapy G62.0; T45.1X5A Chronic kidney disease N18.9 GERD (gastroesophageal reflux disease) K21.9 Depression F32.9
--- NOTE | 2022-03-10 15:38 | Discharge Summary ---
Date of Service March 10, 2022 Admission HPI Per Admitting Provider Lori Tipton is a pleasant 61yo female presenting to [facility] with her with complaint of slurred speech, poor balance, BURNS and nausea. Patient with history of Stage IIIa (T3, N2, M0) small cell lung cancer which was diagnosed by FNA biopsy on 04/21/20. She was treated with 6 cycles of Cisplatin/Etoposide and XRT with radiographic improvement in tumor size. In May [address] demonstrated interval growth of LUCIA mass. On 06/06/21 she developed gait imbalance and headaches. She was seen in the ER at that time and imaging revealed metastatic disease to the cerebellum. She was started on Pembrolizumab/Ketruda and had SBRT and steroids. Recent CT on 11/21/21 unfortunately demonstrated disease progression. She reports baseline imbalance as well as occasional headaches. She had an MRI performed on 02/25/22 which revealed no evidence of acute abnormality such as infarct. Old cerebellar vermis lesion is again noted, compatible with history of metastatic disease. Patient received chemotherapy treatment on 03/07/22. She developed nausea and vomiting on the AM of 03/08/22. She did have a ground level fall at home and hit the right side of her head. Since then she has had progressive functional decli ne. She reports worsening gait instability - prior she was able to get up with moderate assistance. Now it is very difficult to help her ambulate. She has also had nausea with occasional vomiting, PO intolerance and poor appetite. Most concerning is her slurred speech. She has also been having word-finding difficulty as well. She has a BURNS that is worse than her baseline discomfort as well as blurry vision. She denies fever, chills, chest pain, cough, SOB. Denies abdominal pain or diarrhea. In the ER she is afebrile, HD stable, NAD ER Course: Zofran x 2, NSS Principal Diagnosis 1. UTI 2. Dysarthria 3. Metastatic lung cancer 4. Nausea/vomiting Discharge Exam GENERAL: 61 yo WD/WN WF who appears older than stated age. NAD. LUNGS: Clear to auscultation bilaterally. CARDIOVASCULAR: Regular rate and rhythm w/ 2/6 JORGE ABDOMEN: Soft, non-tender and non-distended. BS normoactive x 4 quad. EXTREMITIES: No edema. Non-tender. Peripheral pulses +2/4. NEUROLOGIC: A&O x3. Slurred speech. No other focal deficits appreciated. PSYCHIATRIC: Cooperative. Appropriate mood and affect. SKIN: Warm, dry, intact. No rashes or lesions. Discharge Data Allergies Allergy/AdvReac Type Severity Reaction Status Date / Time lisinopril AdvReac Mild Cough Verified 03/08/22 19:42 Consultations 03/08/22 22:03 ED Decision to Admit Stat 03/08/22 23:57 Consult Oncology Routine Ordered Studies Chest X-Ray 03/08/22 19:18 XR chest 1V portable CLINICAL HISTORY: weakness. Evaluate cardiopulmonary status COMPARISON STUDY: 12/09/2021 TECHNIQUE: 1 view of the chest FINDINGS: Single frontal view of the chest demonstrates the cardiomediastinal silhouette to be within normal limits. The lungs are clear of alveolar opacities. There is no evidence for pleural effusion. There is no evidence for vascular congestion. There is no acute osseous pathology. IMPRESSION: 1. No acute cardiopulmonary disease. ACT 112: Negative or not required by law. Electronically signed by: Nadeem Bai M.D. 03/08/2022 7:[address] 03/08/22 19:52 CT head/brain wo con CLINICAL HISTORY: brain CA, on chemo, BURNS and vomiting COMPARISON STUDY: 12/09/2021 and MRI brain from 02/25/2022 CT DOSE: 455.23 mGycm TECHNIQUE: Standard CT of the Brain was performed without IV contrast. A dose lowering technique was utilized adhering to the principles of ALARA. FINDINGS: Extraaxial space: There is no evidence for subdural hematoma. There are no extra-axial fluid collections. Ventricles and cisterns: The ventricles are normal in size and configuration. There is no evidence for midline shift or mass effect. Parenchyma: There is no subarachnoid or intraparenchymal hemorrhage. There is no evidence for an acute infarct or cerebral edema. There is mild cerebral cortical atrophy and decreased attenuation in the periventricular white matter representing remote small vessel disease. There is again abnormal masslike density within the vermis of the cerebellum in the midline and slightly to the left. This appears essentially unchanged from previous CT and MRI. No new lesions are identified on this noncontrast study. Osseous structures: There is no evidence for an acute fracture. The visualized paranasal sinuses are clear. The mastoid air cells are clear bilaterally. Soft tissues: There is no evidence for focal soft tissue swelling. IMPRESSION: 1. No acute intracerebral pathology. 2. There is again evidence for soft tissue mass within the vermis of the cerebellum which is essentially unchanged. 3. No new lesions are identified on this limited noncontrast study. The patient has no symptoms, follow-up MRI of the brain without and with contrast is recommended for further evaluation. ACT 112: Negative or not required by law. Electronically signed by: Nadeem Bai M.D. 03/08/2022 8:53 PM Brain MRI 03/09/22 09:00 MRI OF THE BRAIN WITHOUT CONTRAST CLINICAL HISTORY: metastatic disease - slurred speech, balance difficulties. COMPARISON STUDY: MRI of the brain February 25, 2022. Head CT 03/08/2022. TECHNIQUE: Utilizing a 1.5 [place]y magnet and dedicated coil, multiplanar, multiecho imaging of the brain was performed without IV contrast. FINDINGS: There are no foci of restricted diffusion to suggest acute infarct. No acute intracranial hemorrhage is present. Ventricular system is unremarkable. Basal cisterns are patent. There are no extra axial collections. Appearance of the brain is unchanged since MRI of February 25, 2022 as well as MRI of January 04, 2022. A 1.7 x 1.5 cm lesion within the vermis is suboptimally assessed on this unenhanced exam but appears unchanged. Adjacent T2 hyperintensity within the cerebellum is unchanged. White matter T2 hyperintensity within the supratentorial brain is also unchanged. No new lesions are identified although sensitivity is diminished on this unenhanced exam. There are no calvarial lesions. There is mild polypoid mucosal thickening of the inferior left maxillary sinus. Minimal fluid within the bilateral mastoid air cells is pr esent. IMPRESSION: 1. No acute intracranial findings. 2. No significant change in a 1.7 x 1.5 cm lesion within the cerebellar vermis. Stable adjacent T2 hyperintensity within the cerebellum since previous MRIs of January 04, 2022 and February 25, 2022. 3. Stable supratentorial white matter T2 hyperintensity which likely reflects post radiation change. 4. No new lesions identified although sensitivity diminished on this unenhanced exam. ACT 112: Negative or not required by law. Electronically signed by: Adan Bacon M.D. 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 Patient had recent fall with head trauma. CT of the head is unremarkable for acute pathology. Cerebellar lesion is again noted and stable in size. Neurological exam is significant for mild dysmetria as well as mildly slow and dysarthric speech. Ddx to include progression of metastatic disease in brain, edema. Possibly secondary to recent fall - post-concussive symptoms. Patient also with UTI - could possibly be exacerbating symptoms as well. -Neuro checks with GCS q 4 hours has been normal @ 15 -MRI brain ordered - no acute findings, as above -Hematology/Oncology consultation appreciated -Zofran as needed for nausea, as it is ineffective, ordered Phenergan 12.5mg q6h prn -Morphine ordered as needed for pain--has not needed any since 03/09 -Meclizine ordered as needed for dizziness -Ativan as needed for anxiety -Had another bout of vomiting after lunch, will trial Scopolamine patch q72h for nausea/vomiting (2) Lung cancer metastatic to brain: Patient with small cell lung cancer with known metastatic lesion to the cerebellum. She has completed 6 rounds of chemotherapy as well as SBRT. Presently on Keytruda and Pembrolizumab with last dose two days ago. -Hematology/Oncology consulted, did not see while in the hospital, has an upcoming appointment with DA on 03/13 -Fall precautions (3) UTI (urinary tract infection): UA suggestive of infection -Preliminary urine culture growing GNR -Ceftriaxone 1gm IV daily (received 2 doses in the hospital) -Will transition to Omnicef 300mg BID to finish up a 5 day course (3 more days) (4) Peripheral neuropathy due to chemotherapy: Chronic -Continue Lyrica 150mg po BID (5) Chronic kidney disease: BUN and Cr slightly higher than baseline. Possibly secondary to volume contraction. IVF given in ER -Avoid nephrotoxic agents -Renal dosing where needed -NSS at 80mL/hr x 1 liter -Repeat chemistries demonstrated improved renal fxn (6) GERD (gastroesophageal reflux disease): Chronic. Well controlled with medication -Continue Protonix (7) Depression: Chronic -Continue Venlafaxine 75mg po daily Patient underwent MRI that did not show any new findings or progression in metastatic disease. Dysarthria could be due to post radiation scarr ing/metastatic disease with exacerbation due to acute infection (UTI). PT/OT consulted, recommended inipatient rehab. This was discussed with patient and her who have declined inpatient rehab and request to be discharged home with home health (SN, PT/OT, and could also arrange speech therapy eval). She has scheduled appointments with oncology as well as a referral to neurology. She is otherwise medically stable for discharge. Urine culture has not yet been finalized but based on prelim results, will d/c home with Cefdinir 300mg BID x 3 more days. Will follow up with urine culture results and notify pt if any adjustments in antibiotic therapy is needed. Plan has been d/w Dr. Muse who will also see this patient prior to discharge. Total Time Total Time Spent Total Time Spent (In Minutes): >30 minutes Discharge Plan Discharge Items Patient Disposition: Home - Home Health Services Reason For Visit: HEADACHE, SLURRE SPEECH, BALANCE DIFFICULTY Discharge Diagnosis: Urinary tract infection, slurred speech, nausea Activity: As commented below Activity Comment: with assist of /wheeled walker Non-emergency contact: Primary Care Provider, Neurologist and Oncologist Call non-emergency contact if: you have any medication questions and your symptoms worsen Follow-up/Referrals: Jane Ortiz DO [Primary Care Provider] - Diet: Regular Addtl Attending Provider Instructions: You were hospitalized due to headache, dizziness, weakness, and slurred speech. Your work-up demonstrated that you have a urinary tract infection, you have been started on antibiotics for this. For the past 2 days you have received IV antibiotics which will be transitioned to oral antibiotics to finish at home. The antibiotic that will be sent to your pharmacy is cefdinir 300 mg and you are to take one capsule by mouth twice a day. You are due for your next dose tomorrow morning. You also underwent an MRI during this hospitalization. It did not show any new findings. There has been no progression in the previously identified lesion in your brain. It is entirely possible that your slurred speech could be related to this lesion and could've been made worse due to the urinary tract infection. As you have identified that you have been referred to a neurologist, I would keep this appointment as scheduled. You may also benefit from evaluation by a speech therapist if your speech does not improve. Due to your nausea, you were given Zofran as well as Phenergan. Despite that you are still having some nausea and vomiting. You are being tried on a medication that is in the form of a patch that you apply to your skin called Scopolamine. You will need to remove this patch every [address] a new one. A 30 day supply of patches has been sent to your pharmacy. Since a patch was applied while you were in the hospital on 03/10, you will need to remove it on 03/[address] a new one. Physical and occupational therapy did a formal evaluation during your stay and recommended that you go to inpatient physical rehabilitation prior to returning home. Since you have decided not to go to rehab and are agreeable to having a home health agency set up, this is being arranged by our case management department. They will arrange for a visiting nurse as well as physical and occupational therapy to see you at home. Make sure when you are ambulating you do so with the assistance of your and your wheeled walker. Remove any possible trip hazards including loose rugs or decor. Keep all appointments with your specialists as scheduled. It is recommended that you follow up with your family doctor within 1 week of katharine muniz. If you have any questions/concerns following your discharge, please call the nonemergency number listed on your discharge paperwork. In the event of a medical emergency, call 911. Pending Studies at Discharge: No Stand-Alone Forms: My [facility], Smoking Cessation Medications and DC Order Prescriptions: New scopolamine base [Transderm-Scop] 1 mg over 3 days Patch 3 Day 1 mg transdermal Q72H Qty: 10 RF: 0 cefdinir 300 mg capsule 300 mg PO BID Qty: 6 RF: 0 Continued pregabalin 150 mg capsule 150 mg PO BID Qty: 60 RF: 3 venlafaxine 75 mg tablet 75 mg PO DAILY Qty: 90 RF: 1 meclizine 25 mg tablet 25 mg PO Q6H PRN (Reason: dizziness) Qty: 60 RF: 0 oxycodone 5 mg tablet 5 mg PO Q4H PRN (Reason: pain) Qty: 15 RF: 0 lorazepam 0.5 mg tablet See Rx Instructions PO Q8H PRN (Reason: anxiety) Qty: 60 RF: 0 pantoprazole 40 mg tablet,delayed release (/EC) 40 mg PO DAILY RF: 0 omeprazole 20 mg tablet,delayed release (DR/EC) 20 mg PO DAILY RF: 0 ondansetron HCl [Zofran] 4 mg tablet 4 mg PO Q8H PRN (Reason: nausea and vomiting) Qty: 30 RF: 0 Discharge Orders: Discharge Order (Routine); Ordered 03/10/22 Ordered By: Gina Benjamin Admission Data Admit Date/Time: 03/08/22 22:41 Attending Provider: Benji Muse Admit Provider: Jill Pena Primary Care Provider: Jane Ortiz. Other Providers: Jill Pena ; Ce Arrieta Coding Level of Care Code D/C DAY MANAGEMENT >30 MINS Diagnoses Dysarthria R47.1 Lung cancer metastatic to brain C34.90; C79.31 UTI (urinary tract infection) N39.0 Peripheral neuropathy due to chemotherapy G62.0; T45.1X5A Chronic kidney disease N18.9 GERD (gastroesophageal reflux disease) K21.9 Depression F32.9 Home Health Attestation I certify that this patient is under my care and that I, or a physicians diet assistant working with me, had a face to-face encounter that meets the home health [id number] encounter requirements with this patient. The encounter with the patient was in whole, or in part, for the following medical condition, which is the primary reason for home health care (list medical condition): I certify that, based on my findings, the following services are medically necessary home health services: My clinical findings support the need for the above services because: Further, I certify that my clinical findings support that this patient is homebound (i.e. absences from home require considerable and taxing effort and are for medical reasons or judaism services or infrequently or of short duration when for other reasons) because: Certification for Home Health Services: Based on the above findings, I certify that this patient is confined to the home and needs intermittent halfway care, physical therapy and/or speech therapy or continues to need occupational therapy. The patient is under my care, and I have initiated the establishment of the plan of care. This patient will be followed by a physician who will periodically review the plan of care.
[2022-03-10] MEDS: cefTRIAXone SODIUM 1,000 MG in DEXTROSE 5% 50 ML IV SCH (15:44)
[2022-03-10] MEDS ORDERED: CHECK SCOPOLAMINE PATCH PLACEMENT SCH (16:00)
[2022-03-10 16:13] VITALS: BP 127/64; TEMP 97.9
[2022-03-10 16:45] VITALS: PULSE 79
== END 2022-03-10 17:28 | disposition home health service (06) | DRG 690 ==
LOC: ED 18:36 → SUATTDRO 22:41 → EDINP 22:41 → 2N 23:57

== ENCOUNTER 2022-11-07 11:37 | Inpatient (IN) ==
[2022-11-07] MEDS ORDERED: SODIUM CHLORIDE 0.9% 1000ML 250 ML IV ONE (12:51)
[2022-11-07 12:54] LABS: Hematocrit (blood only) 32.7 % (37.0-47.0); Hemoglobin 11.4 g/dl (12.0-16.0); Mean Corpuscular Hemoglobin 30.8 pg (25.0-34.0); Mean Corpuscular Hgb Conc 34.9 g/dL (32.0-36.0); Mean Corpuscular Volume 88.4 fL (80.0-100.0); Mean Platelet Volume 10.9 fL (9.4-12.4); Nucleated RBC # (auto) 0.08 K/uL (0-0.12); Nucleated RBC % (auto) 1.4 %; Platelet Count 71 K/uL (130-400); RDW Coefficient of Variation 16.8 % (11.5-14.5); White Blood Count 5.73 K/ul (4.8-10.8)
--- NOTE | 2022-11-07 13:04 | Emergency Department Note ---
History of Present Illness General Chief complaint: Back Injury/Pain Time Seen by Provider: 11/07/22 12:37 Source: patient, family ( who is at the bedside), RN notes reviewed and old records reviewed (I have reviewed her records from her EMS transport from outside the hospital) Mode of arrival: ambulatory Limitations: no limitations History of Present Illness Maximum Pain Intensity: 2 This patient comes in as described above. She was brought in by EMS after having left shoulder and posterior chest pain. She was scheduled to have esophageal stretching this morning but they canceled this. She has had nausea and diarrhea this morning and was not feeling very well present put her in the hot shower and she said that she turned ashen like she was going to pass out but she did not there is been no fall or trauma. She has pain in the posterior chest along the shoulder blade it would hurt with movement and breathing but she feels better now she did receive 15 mg IV Toradol on route. Her says that she does have small cell lung cancer is followed by Dr. Martinez. They recently decreased her prednisone from 4-2 and she has gone worse. She has trouble ambulating and her mobility is gone downhill they increased her back up to 4. No headache no focal numbness or weakness with exception of chronic neuropathy in her legs. No shortness of breath. No cough. No fever Home Medications Medication Instructions Recorded Confirmed Type pregabalin 150 mg capsule 150 mg PO BID #60 caps 04/02/22 11/07/22 Rx meclizine 25 mg tablet 25 mg PO Q6H PRN dizziness #60 tabs 04/30/22 11/07/22 Rx ondansetron HCl 4 mg tablet 4 mg PO Q8H PRN nausea and 10/14/22 11/07/22 Rx vomiting #30 tabs pantoprazole 40 mg granules 40 mg PO BID 10/14/22 11/07/22 History delayed-release for susp in packet amlodipine 10 mg tablet 5 mg PO QAM 11/06/22 11/07/22 History magnesium oxide 500 mg tablet 500 mg PO QAM 11/06/22 11/07/22 History venlafaxine 75 mg tablet 75 mg PO QAM 11/06/22 11/07/22 History dexamethasone 2 mg tablet 2 mg PO DAILY 11/07/22 11/07/22 History lorazepam 0.5 mg tablet 0.5 - 1 mg PO Q8H PRN anxiety 11/07/22 11/07/22 History Allergies Allergy/AdvReac Type Severity Reaction Status Date / Time lisinopril AdvReac Intermediate Cough Verified 11/07/22 16:22 Past Med/Surg History Medical History Ambulatory dysfunction Anemia Anxiety Arthritis Bilat Knees & lower back Chronic kidney disease, stage 3 (moderate) Chronic steroid use Depression Esophageal spasm Esophageal stenosis Esophageal ulcer GERD (gastroesophageal reflux disease) H/O idiopathic thrombocytopenic purpura (09/2020) treated w/ steroids History of blood transfusion Hypercholesterolemia Hypertension Hypomagnesemia Medical marijuana use patient has not used since march 2021 Pancytopenia 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) Renal insufficiency Restless leg syndrome Small cell lung cancer (04/21/20) chemo finished in Sep 2020 Symptomatic anemia Surgical History H/O arthroscopic knee surgery 1998 RIGHT/ 2010 LEFT H/O tubal ligation 1991 H/O: section x2 1987 & 1982 History of bronchoscopy (04/21/20) 04/21/2020 - with positive biopsy History of esophagogastroduodenoscopy (EGD) History of excision of pilonidal cyst 1987 History of open reduction and internal fixation (ORIF) procedure (07/2020) L ankle secondary to fracture History of tooth extraction molars Port-A-Cath in place (05/25/20) Insertion of Mediport Left Subclavian with Fluoroscopy Dr. Ramos 05/25/2020 S/P carpal tunnel release 1989's / 2014 LEFT S/P tonsillectomy Age 4 Family History Mother , Passed age 64 of pancreatic cancer Cancer Hypertension Father Hearing loss Grandmother (Maternal) , Passed age 79 of Stomach Cancer No problems noted. Uncle , Passed in 80's of Colorectal Cancer No problems noted. Brother No problems noted. Brother No problems noted. Sister No problems noted. Grandfather (Maternal) , Passed age 89 of Bladder Cancer No problems noted. Son No problems noted. Daughter Breast cancer Grandmother Cancer Grandfather Cancer Other No family history of adverse response to anesthesia No family history of allergies No family history of bleeding disorder Denies family history of Ovarian cancer Heart disease Lung cancer Asthma Social History Smoking Status: Former smoker Tobacco Type: Cigarettes Age Started Using Tobacco: 20; Age Quit Using Tobacco: 60; packs per day: 1; Cigarettes Per Day: 1 pack; Second Hand Exposure: No; Hx Alcohol Use: No Hx Substance Use: No Preferred Language: Maori Communication Ability: Effective Visual Impairment: No Limitations Hearing Ability: Normal Education Administrator Required: No Beliefs That Will Affect Care: None marital status: Current Living Situation: Spouse Current Living Situation Comment: Lives with Stefan in 1 story house, level entry in back current occupational status: employed 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 How many Children do You have: 0 Other Information That Helps Us Care for You: No Feels Safe at Home: Yes Safety Concerns: Feels Safe At This Time Childhood Exposure to Second-Hand Smoke: Yes caffeine: Yes (ice tea) during the past year weight has: remained stable Dental Care, Regularly: Yes Physical Activity Frequency: Does not Exercise Seatbelt Use: always Sunscreen Use: No Assistive Devices: Cane, Glasses, Walker and Wheelchair Assistive Devices Comment: to bring in glasses tomorrow Review of Systems A total of 10 systems reviewed and were otherwise negative Physical Exam Vital Signs Vital Signs - 24 hr 11/07/22 11:28 11/07/22 12:10 11/07/22 12:34 Temperature 36.7 C Temperature Source Oral Pulse Rate 83 84 Pulse Rate [Finger] 84 Pulse Rhythm [Finger] Pulse Strength [Finger] Respiratory Rate 16 18 Respiratory Effort / Characteristics Respiratory Depth Respiratory Pattern Blood Pressure 119/84 Blood Pressure [Left Arm] 115/73 Blood Pressure Mean 95 Blood Pressure Mean [Left Arm] 87 Blood Pressure Position [Left Arm] Pulse Oximetry 92 96 Oxygen Delivery Method Room Air Sepsis Recent Fever Within 48 Hours No Sepsis New/Unexplained Change in Mental Status N/A Sepsis Action Taken by Nursing No Action Required 11/07/22 16:23 Temperature Temperature Source Pulse Rate Pulse Rate [Finger] 88 Pulse Rhythm [Finger] Regular Pulse Strength [Finger] Normal Respiratory Rate 21 Respiratory Effort / Characteristics Non-Labored Spontaneous Respiratory Depth Normal Respiratory Pattern Regular Blood Pressure Blood Pressure [Left Arm] 107/65 Blood Pressure Mean Blood Pressure Mean [Left Arm] 79 Blood Pressure Position [Left Arm] Lying Pulse Oximetry 91 Oxygen Delivery Method Room Air Sepsis Recent Fever Within 48 Hours Sepsis New/Unexplained Change in Mental Status Sepsis Action Taken by Nursing General: Well developed well nourished middle-age female who appears chronically ill but in no acute distress, breathing comfortably on room air. Normal speech HEENT: Normal cephalic atraumatic. Pupils are equal round and reactive to light. Extraocular movements are intact. Oropharynx is pink with moist mucous membranes. No swelling of the mouth lips or tongue. Neck: Supple with a midline trachea. No meningeal signs or stiffness, no JVD or bruits. No Stridor. Chest: Clear to auscultation bilaterally. No wheezes or rhonchi. No increased work of breathing. Heart: Regular rate and rhythm without murmurs or gallops. Abdomen: Soft nontender, nondistended without rebound guarding or rigidity. Extremities: No cyanosis clubbing or edema. No calf tenderness or assymetry Spine/Back. Non tender to palpation. No CVA tenderness. She is not tender to palpation however when she sits up this causes pain along her shoulder blade. No rash Skin: Good turgor without rashes. Neurologic exam: Cranial nerves two through 12 are intact. Motor and sensation are intact and symmetrical throughout. Course Administered Medications Discontinued Medications Sodium Chloride (Nss 1000ml) 250 mls @ 999 mls/hr IV .Q16M ONE Stop: 11/07/22 13:06 Last Infusion: 11/07/22 15:15 Dose: 0 mls/hr Documented By: Admin: 11/07/22 13:15 Dose: 999 mls/hr Documented By: JACEY Cefepime HCl 2,000 mg/ Syringe 20 mls @ 5 mls/min IV NOW STA; Protocol Stop: 11/07/22 16:09 Last Admin: 11/07/22 17:40 Dose: 5 mls/min Documented By: LORI Ioversol (Optiray 320 500ml) 116 ml IV ONCE ONE Stop: 11/07/22 15:25 Last Admin: 11/07/22 15:24 Dose: 116 ml Documented By: SARAH Medical Decision Making Differential Diagnosis Cancer complication, musculoskeletal, metastases, cardiac disease, aortic disease, pulmonary disease, blood clot, pneumothorax, electrolyte or metabolic abnormality, infection Medical Records Attestation: I reviewed the patient's medical records. Home Medications Current Medication List: was personally reviewed by me Laboratory Data Attestation: I reviewed the patient's lab results. 11/07/22 11:44 11/07/22 11:44 Lab Results 11/07/22 11/07/22 11/07/22 Range/Units 11:44 11:44 11:44 WBC 5.73 (4.8-10.8) K/ul RBC 3.70 L (4.20-5.40) M/uL Hgb 11.4 L (12.0-16.0) g/dl Hct 32.7 L (37.0-47.0) % MCV 88.4 (80.0-100.0) fL MCH 30.8 (25.0-34.0) pg MCHC 34.9 (32.0-36.0) g/dL RDW Std Deviation 52.0 H (36.4-46.3) fL RDW Coeff of Sebastián 16.8 H (11.5-14.5) % Plt Count 71 L (130-400) K/uL MPV 10.9 (9.4-12.4) fL Immature Gran % (Auto) 6.1 % Neut % (Auto) 79.6 % Lymph % (Auto) 8.4 % [place] % (Auto) 5.2 % Eos % (Auto) 0.2 % Baso % (Auto) 0.5 % Neut # (Auto) 4.56 (1.40-6.50) K/uL Lymph # (Auto) 0.48 L (1.2-3.4) K/uL [place] # (Auto) 0.30 (0.11-0.59) K/uL Eos # (Auto) 0.01 (0-0.50) K/uL Baso # (Auto) 0.03 (0-0.2) K/uL Immature Gran # (Auto) 0.35 H (0.01-0.20) K/uL Absolute Nucleated RBC 0.08 (0-0.12) K/uL Nucleated RBC % (auto) 1.4 % PT 9.8 (9.0-12.0) Seconds INR 0.9 (0.9-1.1) APTT 21.9 (21.0-31.0) Seconds PTT Ratio 0.8 D-Dimer 2610 H* (0-500) ug/L FEU Sodium 138 (136-145) mmol/L Potassium 3.8 (3.5-5.1) mmol/L Chloride 106 (98-107) mmol/L Carbon Dioxide 26 (21-32) mmol/L Anion Gap 6 (3-11) BUN 37 H (6-23) mg/dl Creatinine 1.55 H (0.6-1.2) mg/dl Est Cr Clr Drug Dosing 35.4 ml/min Est GFR ( Amer) 41.7 ml/min Est GFR (Non-Af Amer) 36.0 ml/min BUN/Creatinine Ratio 23.9 H (10-20) Glucose 94 (70-99(Fasting)) mg/dl Calcium 8.6 (8.5-10.1) mg/dl Total Bilirubin 1.0 (0.2-1.0) mg/dl AST 17 (13-39) U/L ALT 34 (7-52) U/L Alkaline Phosphatase 68 (34-104) U/L Troponin I High Sens (0-14) pg/ml Total Protein 5.7 L (6.0-8.3) gm/dl Albumin 3.1 L (3.4-5.0) gm/dl Globulin 2.6 (2.5-4.0) gm/dl Albumin/Globulin Ratio 1.2 (0.9-2) SARS-CoV-2, RNA, NAAT (NEGATIVE) 11/07/22 11/07/22 11/07/22 Range/Units 11:44 11:44 13:00 WBC (4.8-10.8) K/ul RBC (4.20-5.40) M/uL Hgb (12.0-16.0) g/dl Hct (37.0-47.0) % MCV (80.0-100.0) fL MCH (25.0-34.0) pg MCHC (32.0-36.0) g/dL RDW Std Deviation (36.4-46.3) fL RDW Coeff of Sebastián (11.5-14.5) % Plt Count (130-400) K/uL MPV (9.4-12.4) fL Immature Gran % (Auto) % Neut % (Auto) % Lymph % (Auto) % [place] % (Auto) % Eos % (Auto) % Baso % (Auto) % Neut # (Auto) (1.40-6.50) K/uL Lymph # (Auto) (1.2-3.4) K/uL [place] # (Auto) (0.11-0.59) K/uL Eos # (Auto) (0-0.50) K/uL Baso # (Auto) (0-0.2) K/uL Immature Gran # (Auto) (0.01-0.20) K/uL Absolute Nucleated RBC (0-0.12) K/uL Nucleated RBC % (auto) % PT (9.0-12.0) Seconds INR (0.9-1.1) APTT (21.0-31.0) Seconds PTT Ratio D-Dimer Cancelled (0-500) ug/L FEU Sodium (136-145) mmol/L Potassium (3.5-5.1) mmol/L Chloride (98-107) mmol/L Carbon Dioxide (21-32) mmol/L Anion Gap (3-11) BUN (6-23) mg/dl Creatinine (0.6-1.2) mg/dl Est Cr Clr Drug Dosing ml/min Est GFR ( Amer) ml/min Est GFR (Non-Af Amer) ml/min BUN/Creatinine Ratio (10-20) Glucose (70-99(Fasting)) mg/dl Calcium (8.5-10.1) mg/dl Total Bilirubin (0.2-1.0) mg/dl AST (13-39) U/L ALT (7-52) U/L Alkaline Phosphatase (34-104) U/L Troponin I High Sens 13.1 (0-14) pg/ml Total Protein (6.0-8.3) gm/dl Albumin (3.4-5.0) gm/dl Globulin (2.5-4.0) gm/dl Albumin/Globulin Ratio (0.9-2) SARS-CoV-2, RNA, NAAT NEGATIVE (NEGATIVE) Imaging Data Attestation: I personally reviewed and interpreted this imaging study as follows: My Impression: Chest x-raythere is a moderate pleural effusion on the left no pneumothorax. Radiologist's Impression: Chest X-Ray 11/07/22 12:51 XR chest 1V portable CLINICAL HISTORY: left post chest pain TECHNIQUE: Single frontal radiograph of the chest was obtained. Comparison: Comparison is made to chest radiograph 03/08/2022 FINDINGS: A port catheter is seen. The cardiomediastinal silhouette is normal. There may be left retrocardiac airspace disease. There is a moderate left pleural effusion. IMPRESSION: Moderate left pleural effusion with possible left retrocardiac opacity compatible with atelectasis with or without superimposed aspiration/pneumonia. ACT 112: Negative or not required by law. Electronically signed by: Silvino Raphael M.D. 11/07/2022 1:29 PM Abdomen/Pelvis CT 11/07/22 13:44 CT abd pelvis IV con only CLINICAL HISTORY: left back pain TECHNIQUE: Helical axial images of the abdomen and pelvis were obtained and displayed. Automated dose lowering techniques and/or adjustment according to patient size were utilized for this exam. This exam was performed with intravenous contrast. COMPARISON: Comparison is made to CT abdomen pelvis 10/14/2022 FINDINGS: Lower chest: A pericardial effusion is again seen. Liver: Hepatic steatosis is noted. Gallbladder and biliary tree: Cholelithiasis is seen without evidence of cholecystitis. No intra- or extrahepatic biliary ductal dilation. Pancreas: Unremarkable, no focal lesions. Spleen: Unremarkable. Adrenals: Unremarkable. Kidneys and ureters: Unremarkable. Bladder: Unremarkable. Reproductive organs: Unremarkable. Bowel: Unremarkable. Lymph nodes Retroperitoneal: Unremarkable. Pelvic: Unremarkable. Mesenteric: Unremarkable. Peritoneum: Normal. Vessels: Atherosclerotic calcifications are seen. Abdominal wall: Unremarkable. Bones: Degenerative changes in the visualized spine. There is a compression deformity of L1 which is unchanged from prior exam. L4 compression deformity is unchanged. IMPRESSION: No acute abnormalities. Redemonstration of cholelithiasis without evidence of cholecystitis. No evidence of bowel obstruction. ACT 112: Negative or not required by law. Electronically signed by: Silvino Raphael M.D. 11/07/2022 3:51 PM Chest CTA 11/07/22 13:44 CT angio chest PE protocol HISTORY: 62 years-old Female with PE. Acute shortness of breath TECHNIQUE: Multiple CTA images of the chest were obtained after the intravenous administration of 116 ml Optiray. Coronal and sagittal MIPS were obtained from the axial data set and were submitted for review. All measurements were obtained according to NASCET criteria. A dose lowering technique was utilized adhering to the principles of ALARA. COMPARISON: CT abdomen and pelvis of same day, chest CT 10/14/2022 FINDINGS: Unremarkable thyroid. Left IJ [id number] catheter distal tip terminates within the left brachiocephalic vein SVC confluence. Heart is normal in size. Increased size of the pericardial effusion now measuring up to 2 cm posteriorly on image 107, previously 1 cm. Moderate coronary artery calcifications. Atherosclerosis of the thoracic aorta without aneurysm or dissection. Unremarkable pulmonary artery. No pulmonary emboli are identified. No pathologically enlarged lymph nodes identified. 6 mm epicardial lymph node on image 85, previously 5 mm. A paramediastinal left upper lobe lesion on image 186 measures 3.7 x 2.9 cm, previously measured at 3.6 x 2.8 cm. 3.1 x 2.7 left infrahilar opacity on image 128 previously measured cm 3.0 x 2.6 cm . There is a new cavitary irregular consolidative opacity within the left upper lobe measuring 2.4 x 2.8 cm on image 164 with adjacent progressive/new consolidative and groundglass opacities. Subtle subsegmental groundglass densities with tree-in-bud nodules are noted bilaterally. Mild pulmonary emphysema. Trace left pleural effusion. No pneumothorax. The central airways are patent with bronchial wall thickening. Cholelithiasis. Hepatic steatosis. Unremarkable soft tissues. Chronic L1 compression fracture. Unchanged subtle superior endplate compression of the T3 and T4 vertebral bodies. No acute fracture or destructive bone lesion identified. IMPRESSION: 1. No pulmonary emboli identified. 2. Increased size of the pericardial effusion with new trace left pleural effusion. 3. Left paramediastinal left upper lobe and left infrahilar left lower lobe lesions are redemonstrated which appear similar to the 10/14/2022 exam. 4. Progressive left upper and left lower lobe opacities may represent postobstru ctive pneumonitis with a new centrally cavitary consolidative focus within the lingula measuring 2.8 cm. Cavitary pneumonia is favored. Follow-up is needed to exclude malignancy. 5. Cholelithiasis. 6. Additional findings as above. ACT 112: Negative or not required by law. The above report was generated using voice recognition software. It may contain grammatical, syntax or spelling errors. Electronically signed by: Festus Torres M.D. 11/07/2022 3:[address] 11/07/22 13:48 CT OF THE HEAD WITHOUT CONTRAST CLINICAL HISTORY: Metastatic disease. Small cell lung cancer. Evaluate for mass. COMPARISON STUDY: MRI of the brain 11/10/[address] September 18, 2022. CT DOSE: 1807.74 mGy.cm TECHNIQUE: Helical axial images of the head were obtained without IV contrast. Automated exposure control was utilized for the study. A dose lowering techniqu e was utilized adhering to the principles of ALARA. FINDINGS: No acute intracranial hemorrhage or midline shift is present. Ventricular system is stable. Previously described lesion within the cerebellar vermis is suboptimally assessed on this unenhanced exam but appear similar to head CT of September 10, 2022. This measures 2.1 cm. This may have minimal syeda pheral calcification. Mild effacement of the fourth ventricle remains unchanged. Cerebellar hypodensity is again noted. Diffuse white matter hypodensity have slightly progressed. There are no findings to suggest acute dural sinus thrombosis or acute territorial infarct. The basal cisterns are patent. No calvarial fractures are present. There are no suspicious calvarial lesions. IMPRESSION: 1. No acute intracranial hemorrhage. 2. Lesion within the cerebellar vermis, similar to head CT of September 18, 2022. This is suboptimally assessed on this unenhanced CT exam. 3. Mild progression of white matter hypodensities which favor posttreatment change. ACT 112: Negative or not required by law. Electronically signed by: Adan Bacon M.D. 11/07/2022 3:55 PM ECG Data Attestation: I personally reviewed and interpreted this ECG as follows: Indication: + back/shoulder pain Rate (beats per minute): 83 Rhythm: + normal sinus ECG Intervals/blocks: + Normal QRS, + Normal QT and + Normal IN ECG [place]: + Normal ECG ST segments: + Normal ST segments ECG Findings: no PACs or no PVCs Comparison ECG Date: from (03/08/22) Change: no significant change MDM Narrative This patient comes in as described above. She was placed on a damaged freight inspector room A3 she has a complex medical history after having non-small cell lung cancer. IV X established she had been given Toradol 15 mg IV on route and was feeling a lot better. Multiple blood testing was obtained EKG was obtained does not suggest acute coronary syndrome or arrhythmia. Blood test was obtained including a D-dimer and troponin. Chest x-ray was obtained she was reassessed frequently. She remained stable. Her high-sensitivity troponin is within normal limits and I do not think is likely cardiac. Chest x-ray does show she has a pleural effusion. She did have a significantly elevated D-dimer in light of this I did order a CTA she does have some mild renal insufficiency and I explained the risk and the benefits with the patient and her and they did agree to the CAT scan. Given the fact that she has had brain mets I also did a CAT scan of her head and neck as well as abdomen pelvis as her hemoglobin was somewhat decreased compared to last time. Chest CT shows no evidence of PE. she does have a pleural effusion as well as pericardial effusion and she has some lesions that are likely consistent with pneumonia but could be cancer related. I do think she needs to be admitted for further treatment and evaluation. I have given her cefepime 2 g IV blood cultures were obtained. I have consulted the hospitalist and talk to Dr. Prasad and the [facility] team will see her admit her for these measures Continuous damaged freight inspector: Orders placed in EMR for continuous damaged freight inspector. 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
[2022-11-07 13:06] LABS: INR 0.9 (0.9-1.1); Partial Thromboplastin Ratio 0.8; Partial Thromboplastin Time 21.9 Seconds (21.0-31.0); Prothrombin Time 9.8 Seconds (9.0-12.0)
[2022-11-07 13:12] LABS: Basophils # (auto) 0.03 K/uL (0-0.2); Basophils % (auto) 0.5 %; Eosinophils # (auto) 0.01 K/uL (0-0.50); Eosinophils % (auto) 0.2 %; Immature Granulocytes # (auto) 0.35 K/uL (0.01-0.20); Immature Granulocytes % (auto) 6.1 %; Lymphocytes # (auto) 0.48 K/uL (1.2-3.4); Lymphocytes % (auto) 8.4 %; Monocytes % (auto) 5.2 %; Neutrophils # (auto) 4.56 K/uL (1.40-6.50); Neutrophils % (auto) 79.6 %
[2022-11-07 13:17] LABS: Albumin Level 3.1 gm/dl (3.4-5.0); Calcium 8.6 mg/dl (8.5-10.1); Potassium 3.8 mmol/L (3.5-5.1)
[2022-11-07 13:23] LABS: Albumin Globulin Ratio 1.2 (0.9-2); BUN Creatinine Ratio 23.9 (10-20); Creatinine Clr Calc Pharmacy 35.4 ml/min; Est GFR (African American) 41.7 ml/min; Globulin 2.6 gm/dl (2.5-4.0); Total Protein 5.7 gm/dl (6.0-8.3)
--- NOTE | 2022-11-07 13:30 | XRay Report ---
XR chest 1V portable CLINICAL HISTORY: left post chest pain TECHNIQUE: Single frontal radiograph of the chest was obtained. Comparison: Comparison is made to chest radiograph 03/08/2022 FINDINGS: A port catheter is seen. The cardiomediastinal silhouette is normal. There may be left retrocardiac a irspace disease. There is a moderate left pleural effusion. IMPRESSION: Moderate left pleural effusion with possible left retrocardiac opacity compatible with atelectasis wi th or without superimposed aspiration/pneumonia. ACT 112: Negative or not required by law. Electronically signed by: Silvino Raphael M.D. 11/07/2022 1:29 PM
[2022-11-07 13:35] LABS: D Dimer 2610 ug/L FEU (0-500)
--- NOTE | 2022-11-07 14:27 | Electrocardiogram Report ---
Test Reason : Blood Pressure : / mmHG Vent. Rate : 083 BPM Atrial Rate : 083 BPM P-R Int : 164 ms QRS Dur : 086 ms QT Int : 326 ms P-R-T Axes : 046 036 073 degrees QTc Int : 383 ms Poor data quality, interpretation may be adversely affected Normal sinus rhythm Low voltage QRS Borderline ECG When compared with ECG of 08-MAR-2022 19:08, QRS axis Shifted left QT has shortened Confirmed by Ney Pelletier ([id number]) on 11/07/2022 2:26:54 PM Referred By: REFERRED SELF Confirmed By:Zeeshan Pelletier
[2022-11-07] MEDS ORDERED: OPTIRAY 320 500ml IV ONE (15:24)
--- NOTE | 2022-11-07 15:52 | CT Scan Report ---
CT abd pelvis IV con only CLINICAL HISTORY: left back pain TECHNIQUE: Helical axial images of the abdomen and pelvis were obtained and displayed. Automated dose lowering techniques and/or adjustment according to patient size were utilized for this exam. This e xam was performed with intravenous contrast. COMPARISON: Comparison is made to CT abdomen pelvis 10/14/2022 FINDINGS: Lower chest: A pericardial effusion is again seen. Liver: Hepatic steatosis is noted. Gallbladder and biliary tree: Cholelithiasis is seen without evidence of cholecystitis. No intra- or extrahepatic biliary ductal dilation. Pancreas: Unremarkable, no focal lesions. Spleen: Unremarkable. Adrenals: Unremarkable. Kidneys and ureters: Unremarkable. Bladder: Unremarkable. Reproductive organs: Unremarkable. Bowel: Unremarkable. Lymph nodes Retroperitoneal: Unremarkable. Pelvic: Unremarkable. Mesenteric: Unremarkable. Peritoneum: Normal. Vessels: Atherosclerotic calcifications are seen. Abdominal wall: Unremarkable. Bones: Degenerative changes in the visualized spine. There is a compression deformity of L1 which is unchanged from prior exam. L4 compression deformity is unchanged. IMPRESSION: No acute abnormalities. Redemonstration of cholelithiasis without evidence of cholecystitis. No evide nce of bowel obstruction. ACT 112: Negative or not required by law. Electronically signed by: Silvino Raphael M.D. 11/07/2022 3:51 PM
--- NOTE | 2022-11-07 15:54 | CT Scan Report ---
CT angio chest PE protocol HISTORY: 62 years-old Female with PE. Acute shortness of breath TECHNIQUE: Multiple CTA images of the chest were obtained after the intravenous administration of 116 ml Optiray. Coronal and sagittal MIPS were obtained from the axial data set and were submitted for review. All measurements were obtained according to NASCET criteria. A dose lowering technique was u tilized adhering to the principles of ALARA. COMPARISON: CT abdomen and pelvis of same day, chest CT 10/14/2022 FINDINGS: Unremarkable thyroid. Left IJ [id number]-[id number] catheter distal tip terminates within the left brachiocep halic vein SVC confluence. Heart is normal in size. Increased size of the pericardial effusion now me asuring up to 2 cm posteriorly on image 107, previously 1 cm. Moderate coronary artery calcifications . Atherosclerosis of the thoracic aorta without aneurysm or dissection. Unremarkable pulmonary artery . No pulmonary emboli are identified. No pathologically enlarged lymph nodes identified. 6 mm epicard ial lymph node on image 85, previously 5 mm. A paramediastinal left upper lobe lesion on image 186 measures 3.7 x 2.9 cm, previously measured at 3 .6 x 2.8 cm. 3.1 x 2.7 left infrahilar opacity on image 128 previously measured cm 3.0 x 2.6 cm . The re is a new cavitary irregular consolidative opacity within the left upper lobe measuring 2.4 x 2.8 c m on image 164 with adjacent progressive/new consolidative and groundglass opacities. Subtle subsegme ntal groundglass densities with tree-in-bud nodules are noted bilaterally. Mild pulmonary emphysema. Trace left pleural effusion. No pneumothorax. The central airways are patent with bronchial wall thic kening. Cholelithiasis. Hepatic steatosis. Unremarkable soft tissues. Chronic L1 compression fracture. Unchan ged subtle superior endplate compression of the T3 and T4 vertebral bodies. No acute fracture or dest ructive bone lesion identified. IMPRESSION: 1. No pulmonary emboli identified. 2. Increased size of the pericardial effusion with new trace left pleural effusion. 3. Left paramediastinal left upper lobe and left infrahilar left lower lobe lesions are redemonstrate d which appear similar to the 10/14/2022 exam. 4. Progressive left upper and left lower lobe opacities may represent postobstructive pneumonitis wit h a new centrally cavitary consolidative focus within the lingula measuring 2.8 cm. Cavitary pneumoni a is favored. Follow-up is needed to exclude malignancy. 5. Cholelithiasis. 6. Additional findings as above. ACT 112: Negative or not required by law. The above report was generated using voice recognition software. It may contain grammatical, syntax o r spelling errors. Electronically signed by: Festus Torres M.D. 11/07/2022 3:53 PM
--- NOTE | 2022-11-07 15:56 | CT Scan Report ---
CT OF THE HEAD WITHOUT CONTRAST CLINICAL HISTORY: Metastatic disease. Small cell lung cancer. Evaluate for mass. COMPARISON STUDY: MRI of the brain 11/10/[address] September 18, 2022. CT DOSE: 1807.74 mGy.cm TECHNIQUE: Helical axial images of the head were obtained without IV contrast. Automated exposure con trol was utilized for the study. A dose lowering technique was utilized adhering to the principles o f ALARA. FINDINGS: No acute intracranial hemorrhage or midline shift is present. Ventricular system is stable. Previously described lesion within the cerebellar vermis is suboptimally assessed on this unenhanced exam but appear similar to head CT of September 10, 2022. This measures 2.1 cm. This may have minimal peripheral calcification. Mild effacement of the fourth ventricle remains unchanged. Cerebellar hypo density is again noted. Diffuse white matter hypodensity have slightly progressed. There are no findi ngs to suggest acute dural sinus thrombosis or acute territorial infarct. The basal cisterns are alvarez nt. No calvarial fractures are present. There are no suspicious calvarial lesions. IMPRESSION: 1. No acute intracranial hemorrhage. 2. Lesion within the cerebellar vermis, similar to head CT of September 18, 2022. This is suboptimally assessed on this unenhanced CT exam. 3. Mild progression of white matter hypodensities which favor posttreatment change. ACT 112: Negative or not required by law. Electronically signed by: Adan Bacon M.D. 11/07/2022 3:55 PM
[2022-11-07] MEDS ORDERED: CEFEPIME 2,000 MG in SYRINGE 0 ML IV STA (16:06)
--- NOTE | 2022-11-07 17:12 | History & Physical Report ---
Date of Service November 07, 2022 Assessment & Plan (1) Small cell lung cancer: Plan: Weakness, diarrhea in a patient admitted with small cell lung cancer. She was planned to have an esophageal dilatation today. Also planned to resume chemotherapy on 11/08 Patient coming in with fatigue, diarrhea, JOSE ANTONIO. will place on IV fluids, and monitor. Her CT scan shows possible evidence of post obstructive pneumonitis, patient will be paced on cefepime discussed case with pulmonary, will review CT scan,, no consult needed. CT scan also showed pericardial effusion, this is stable. Also reached out to Dr. Mohan via tiger text to see if raidation therapy is recommended. 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 Stable (3) Depression: Plan: resume home meds (4) Esophageal stenosis: Plan: tolerating diet. May need to consult GI for esophageal dilatation or may need this rescheduled as an outpatient. (5) Shoulder pain: Plan: Placed on tramadol. will monitor. (6) Pericardial effusion: Plan: stable and chronic. Plan DVT: heparin once JOSE ANTONIO resolves, paula place on lovenox. History of Present Illness Chief Complaint: weakness Primary Care Provider: Jane Ortiz, DO 62 yo female with stage 4 smalll cell lung cancer presents to the hospital after waking up this morning feeling sick. She was her normal state of health on 11/06. However overnight, she had worsening back pain and GI upset. In the morning when she woke up, she had nausea, vomiting and diarrhea. Patient denies any sick contacts. Her helped her to the shower, and her face looked ashed cardona. He took her back to bed. As hse did not improve, he took her to the hospital. Patient was found to have JOSE ANTONIO. Patient was placed on IVF and IV antibiotics, admission was called. Allergies Allergy/AdvReac Type Severity Reaction Status Date / Time lisinopril AdvReac Intermediate Cough Verified 11/07/22 16:22 Home Medications Medication Instructions Recorded Confirmed Type pregabalin 150 mg capsule 150 mg PO BID #60 caps 04/02/22 11/07/22 Rx meclizine 25 mg tablet 25 mg PO Q6H PRN dizziness #60 tabs 04/30/22 11/07/22 Rx ondansetron HCl 4 mg tablet 4 mg PO Q8H PRN nausea and 10/14/22 11/07/22 Rx vomiting #30 tabs pantoprazole 40 mg granules 40 mg PO BID 10/14/22 11/07/22 History delayed-release for susp in packet amlodipine 10 mg tablet 5 mg PO QAM 11/06/22 11/07/22 History magnesium oxide 500 mg tablet 500 mg PO QAM 11/06/22 11/07/22 History venlafaxine 75 mg tablet 75 mg PO QAM 11/06/22 11/07/22 History dexamethasone 2 mg tablet 2 mg PO DAILY 11/07/22 11/07/22 History lorazepam 0.5 mg tablet 0.5 - 1 mg PO Q8H PRN anxiety 11/07/22 11/07/22 History Past Med/Surg History Medical History Ambulatory dysfunction Anemia Anxiety Arthritis Bilat Knees & lower back Chronic kidney disease, stage 3 (moderate) Chronic steroid use Depression Esophageal spasm Esophageal stenosis Esophageal ulcer GERD (gastroesophageal reflux disease) H/O idiopathic thrombocytopenic purpura (09/2020) treated w/ steroids History of blood transfusion Hypercholesterolemia Hypertension Hypomagnesemia Medical marijuana use patient has not used since march 2021 Pancytopenia 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) Renal insufficiency Restless leg syndrome Small cell lung cancer (04/21/20) chemo finished in Sep 2020 Symptomatic anemia Surgical History H/O arthroscopic knee surgery 1998 RIGHT/ 2010 LEFT H/O tubal ligation 1991 H/O: section x2 1987 & 1982 History of bronchoscopy (04/21/20) 04/21/2020 - with positive biopsy History of esophagogastroduodenoscopy (EGD) History of excision of pilonidal cyst 1987 History of open reduction and internal fixation (ORIF) procedure (07/2020) L ankle secondary to fracture History of tooth extraction molars Port-A-Cath in place (05/25/20) Insertion of Mediport Left Subclavian with Fluoroscopy Dr. Ramos 05/25/2020 S/P carpal tunnel release 1989's RT / 2015 LEFT S/P tonsillectomy Age 4 Family History Mother , Passed age 64 of pancreatic cancer Cancer Hypertension Father Hearing loss Grandmother (Maternal) , Passed age 79 of Stomach Cancer No problems noted. Uncle , Passed in 80's of Colorectal Cancer No problems noted. Brother No problems noted. Brother No problems noted. Sister No problems noted. Grandfather (Maternal) , Passed age 89 of Bladder Cancer No problems noted. Son No problems noted. Daughter Breast cancer Grandmother Cancer Grandfather Cancer Other No family history of adverse response to anesthesia No family history of allergies No family history of bleeding disorder Denies family history of Ovarian cancer Heart disease Lung cancer Asthma Social History Smoking Status: Former smoker Tobacco Type: Cigarettes Age Started Using Tobacco: 20; Age Quit Using Tobacco: 60; packs per day: 1; Cigarettes Per Day: 1 pack; Second Hand Exposure: No; Hx Alcohol Use: No Hx Substance Use: No Preferred Language: Turkmen Communication Ability: Effective Visual Impairment: No Limitations Hearing Ability: Normal Learning Disabilities Specialist Required: No Beliefs That Will Affect Care: None marital status: Current Living Situation: Spouse Current Living Situation Comment: Lives with Stefan in 1 story house, level entry in back current occupational status: employed 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 How many Children do You have: 0 Other Information That Helps Us Care for You: No Feels Safe at Home: Yes Safety Concerns: Feels Safe At This Time Childhood Exposure to Second-Hand Smoke: Yes caffeine: Yes (ice tea) during the past year weight has: remained stable Dental Care, Regularly: Yes Physical Activity Frequency: Does not Exercise Seatbelt Use: always Sunscreen Use: No Assistive Devices: Cane, Glasses, Walker and Wheelchair Assistive Devices Comment: to bring in glasses tomorrow Review of Systems Constitutional: + body aches and + weakness; no fever Eyes: no blind spots Ear, Nose, Mouth, Throat: no ear pain Respiratory: no cough Cardiovascular: no chest pain Gastrointestinal: + abdominal pain, + nausea, + vomiting and + diarrhea/loose stools Genitourinary: no dysuria Musculoskeletal: + back pain Integumentary: no acne Neurologic: no gait abnormality Psychiatric: no behavioral changes Endocrine: no fatigue Hematologic / Lymphatic: no easy bleeding Allergy / Immunological: no GI upset with certain foods Physical Exam Constitutional: WD/WN, vitals as above Eyes: PERRL, conjunctivae normal, anicteric sclerae ENMT: external ear and nose normal, oropharynx normal Neck: trachea midline, no thyromegaly Respiratory: normal respiratory effort, lungs clear to auscultation Cardiovascular: RRR, no murmur, no edema Gastrointestinal (Abdomen): normal bowel sounds, soft, nontender, no hepatosplenomegaly Musculoskeletal: no cyanosis or clubbing, extremities motor strength 5/5 Skin: no rashes, warm and dry Neurologic: PERRL, EOMI, accommodation nl, no face palsy, no dysarthria Psychiatric: A+Ox3, euthymic affect Lymphatic: no cervical or axillary lymphadenopathy Results & Data Results & Data ([facility]) Vital Signs (Past 12 Hours) Vital Signs Temp Pulse Pulse Resp BP BP Pulse Ox 11/07/22 16:23 88 21 107/65 91 11/07/22 12:34 84 18 115/73 96 11/07/22 12:10 84 11/07/22 11:28 36.7 C 83 16 119/84 92 O2 Del Method 11/07/22 16:23 Room Air 11/07/22 12:34 11/07/22 12:10 11/07/22 11:28 Room Air PG Care Time/CCT Total # of Minutes Spent Total Time Spent with Patient: Total time spent is greater than 50% in coordination of care (as documented) at patient's floor/unit and/or counseling patient: Coding Level of Care Code 34902 INT INP/OBS CARE 3/75MIN Diagnoses Small cell lung cancer C34.90 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
[2022-11-07] MEDS ORDERED: MECLIZINE HCL 25 MG TAB PO PRN (18:12)
[2022-11-07] MEDS ORDERED: LORazepam 0.5 MG TAB PO PRN (18:12)
[2022-11-07] MEDS ORDERED: ACETAMINOPHEN 325 MG TAB PO PRN (18:16)
[2022-11-07] MEDS ORDERED: ONDANSETRON 4 MG OD TAB PO PRN (18:50)
[2022-11-07] MEDS ORDERED: traMADol HCL 50 MG TABLET PO STA (19:30)
[2022-11-07] MEDS: PREGABALIN 150 MG CAP PO SCH (20:45)
[2022-11-07] MEDS: PANTOprazole 40 MG TAB PO SCH (20:46)
[2022-11-07] MEDS: LORazepam 0.5 MG TAB PO SCH (20:46)
[2022-11-07] MEDS ORDERED: HYDROmorphone INJ 0.5 MG/0.5 ML SYR IV PRN (23:26)
[2022-11-08] MEDS: traMADol HCL 50 MG TABLET PO PRN ×3 (01:28→18:02)
[2022-11-08] MEDS: CEFEPIME 2,000 MG in SYRINGE 0 ML IV SCH ×2 (05:23→18:01)
[2022-11-08] MEDS: amLODIPine BESYLATE 5 MG TAB PO SCH (08:59)
[2022-11-08] MEDS: PANTOprazole 40 MG TAB PO SCH ×2 (08:59→20:09)
[2022-11-08] MEDS: MAGNESIUM OXIDE 400 MG TAB PO SCH (08:59)
[2022-11-08] MEDS: VENLAFAXINE HCL 37.5 MG TAB PO SCH (08:59)
[2022-11-08] MEDS: dexAMETHasone 4 MG TAB PO SCH (08:59)
[2022-11-08] MEDS: PREGABALIN 150 MG CAP PO SCH ×2 (09:01→20:09)
--- NOTE | 2022-11-08 11:24 | Consultation ---
Date of Consultation November 08, 2022 Assessment & Plan (1) Shoulder pain: Shoulder pain likely reflects the evolving changes in the left upper lung. She is getting some relief from her current analgesia, may be worthwhile to incorporate palliative care consultation into the specific management of her sym ptoms but also for a larger overall assessment of parameters of care. 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 Immediate attention should be focused on treatment of a possible postobstructive pneumonia, symptom management focused on the suprascapular pain on the left, and did not need to include any immediate further oncologic specific interventions. Looking forward to a time when those issues have been better stabilized, and considering what strategies with offer with regards to her SCLC, with decline in performance status (currently ECOG 3) she is unfortunately not a good candidate for investigational treatments nor for aggressive salvage cytotoxic therapy. Likely that we would simply continue her bevacizumab with neurosurgical review and input for the time being. However, it may be important to start reassessing her more intermediate and long-term prognosis and treatment options to make sure that we are contingently prepared to address more definitively establish progression if and when it occurs. It is hard for me to tell whether her expressed desire for return of functionality and ability to drive is more wishful thinking or an actual expected possibility as she does seem to have some not unexpected cognitive dysfunction related to her SALES ENABLEMENT ANALYST disease and previous radiation. Palliaitive care catalyzed conversation will be critical in addressing realistic prognostic expectations and assessment of the potentially conflicting themes of optimizing short-term quality of life versus [id number] of potentially toxic further on cologic specific interventions to treat any progression which would unfortunately carry uncertain response degree and duratio do for you n. 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 This may be a combination consequence of overall deterioration in strength and performance status, further evolution of radiation induced SALES ENABLEMENT ANALYST dysfunction, and the particular persistence if not mild progression of the metastatic disease itself. As echoed in the discussions of her small cell lung cancer and pain, palliative care consultation in conjunction with ongoing hospitalist/ID/pulmonary/oncology management may be very worthwhile. (4) Esophageal stricture: Some ongoing symptomatology, ;planned dilation was cancelled yesterday. If/as her status stabilizes it would be worthwhile to reschedule dilation especially avoid any recurrent aspiration that may be exacerbating her risk for pulmonary infections (5) Chemotherapy follow-up examination: Patient received bevacizumab on 10/25/2022 so should keep in mind that this increases risk for both bleeding and thrombosis. We additionally note her current platelet count of 71,000. 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 Alternatively could focus on nonpharmacologic prophylaxis. Fortunately does not look like she will require any major procedures - we would usually delay elective or semielective invasive procedures for at least 4 to 6 weeks after bevacizumab doses. Plan 1. Immediate management is focused on relief of pain and treating what looks like at least a significant component of postobstructive pneumonia 2. While there is some concern over persistence reviewed mild progression of the disease in the chest that has exacerbated her development of that postobstru ctive pneumonia, there is no immediately threatening aggression of her oncologic disease that requires acute intervention 3. With decline in overall performance status and specific neurological chall enges ongoing with regards to strength/cerebellar function/and cognitive function, palliative care consultation may help us to start the "critical conversations" that will be important prelude to any next step decision making about her oncologic care. That may also be specifically helpful in pain management optimization 4. Dr. Arrieta will be available once again on Friday for additional recommend ations. I am available through the answering service for acute issues that may arise over the weekend History of Present Illness Reason for Consultation: Patient with metastatic small cell lung cancer and admission for diarrhea/JOSE ANTONIO/possible postobstructive pneumonitis Attending Physician: Ricky Mejias MD History of Present Illness Patient with multiply relapsed small cell lung cancer including SALES ENABLEMENT ANALYST metastases admitted with weakness, diarrhea, JOSE ANTONIO and some ongoing issues of dysphagia and neurological compromise. Radiology does seem to indicate a possible evolving postobstructive pneumonia She was first diagnosed with SCLC in late 2019 presenting with initial stage III disease (T3 N2 M0) and treated with 6 cycles of etoposide/carboplatinum and concomitant thoracic radiation 6600 cGy in 33 fractions completed in September, This was followed by prophylactic whole brain irradiation 2500 cGy in 10 fractions completed in November, She relapsed with SALES ENABLEMENT ANALYST disease as well as possible progression at the primary site in May 2021 treated with stereotactic radiosurgery 3000 cGy in 5 fractions to the SALES ENABLEMENT ANALYST lesion and initiation of systemic ICI with pembrolizumab. This continued with relative stability until November 2021. Further progression at that time led to the initiation of topotecan which continued through April 2022. While systemic imaging has remained stable throughout the second half of 2021, MRI of the brain (done at [facility]) showed increased size of a hemorrhagic centered cerebellar vermis mass increased from 1.3 x 1.1 cm to 2.4 x 2 cm. She was seen by [facility] neurosurgery and offered the options of systemic bevacizumab versus laser thermal ablation. She was started on bevacizumab 06/27/2022. Repeat CT scan of the brain 09/18/2022 showed progression compared to a [facility] February, MRI scan but actual relative stability compared to the [facility] MRI of the brain in May. She was felt stable at that time with plans to continue the bevacizumab with close follow-up with neurosurgery at [facility]. She was last seen on our offices on 10/25/2022 at which time she was given a dose of bevacizumab and seemed to be clinically stable She is now admitted with a several day history of increasing weakness, diarrhea, JOSE ANTONIO and what looks like it may be an evolving postobstructive pneumonia. She indicates that she has had some increased discomfort in the left suprascapular area posteriorly but denies hemoptysis. Patient in conjunction with her ongoing treatment for the small cell lung cancer had developed an esophageal stricture related to her previous chemoradiation and has required periodic dilation. She been scheduled for another dilation on 11/07/2022 because of clinical deterioration that was aborted and she has been admitted. She feels that the suprascapular pain has improved overnight with analgesics and she is breathing much better today. However, she notes that she still is unable to ambulate (a relatively new development in the last week or 2 where she was previously able to do so with a walker). She is not having dramatic headache currently. Past what she perceives of her current situation and her goals, she would like to get back to the function that she had several weeks ago and would like to be able to drive again. While she speaks fluently and seems to answer questions reasonably well, it is not clear that she has entirely intact cognitive capacity sufficient for medical decision-making. She does at least seem to have some understanding of the gravity of her prognosis and that she may not be able to achieve her desired status improvement. Allergies Allergy/AdvReac Type Severity Reaction Status Date / Time lisinopril AdvReac Intermediate Cough Verified 11/07/22 16:22 Home Medications Medication Instructions Recorded Confirmed Type pregabalin 150 mg capsule 150 mg PO BID #60 caps 04/02/22 11/07/22 Rx meclizine 25 mg tablet 25 mg PO Q6H PRN dizziness #60 tabs 04/30/22 11/07/22 Rx ondansetron HCl 4 mg tablet 4 mg PO Q8H PRN nausea and 10/14/22 11/07/22 Rx vomiting #30 tabs pantoprazole 40 mg granules 40 mg PO BID 10/14/22 11/07/22 History delayed-release for susp in packet amlodipine 10 mg tablet 5 mg PO QAM 11/06/22 11/07/22 History magnesium oxide 500 mg tablet 500 mg PO QAM 11/06/22 11/07/22 History venlafaxine 75 mg tablet 75 mg PO QAM 11/06/22 11/07/22 History dexamethasone 2 mg tablet 2 mg PO DAILY 11/07/22 11/07/22 History lorazepam 0.5 mg tablet 0.5 - 1 mg PO Q8H PRN anxiety 11/07/22 11/07/22 History Patient History Medical History Ambulatory dysfunction Anemia Anxiety Arthritis Bilat Knees & lower back Chronic kidney disease, stage 3 (moderate) Chronic steroid use Depression Esophageal spasm Esophageal stenosis Esophageal ulcer GERD (gastroesophageal reflux disease) H/O idiopathic thrombocytopenic purpura (09/2020) treated w/ steroids History of blood transfusion Hypercholesterolemia Hypertension Hypomagnesemia Medical marijuana use patient has not used since march 2021 Pancytopenia 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) Renal insufficiency Restless leg syndrome Small cell lung cancer (04/21/20) chemo finished in Sep 2020 Symptomatic anemia Surgical History H/O arthroscopic knee surgery 1998 RIGHT/ 2010 LEFT H/O tubal ligation 1991 H/O: section x2 1987 & 1982 History of bronchoscopy (04/21/20) 04/21/2020 - with positive biopsy History of esophagogastroduodenoscopy (EGD) History of excision of pilonidal cyst 1987 History of open reduction and internal fixation (ORIF) procedure (07/2020) L ankle secondary to fracture History of tooth extraction molars Port-A-Cath in place (05/25/20) Insertion of Mediport Left Subclavian with Fluoroscopy Dr. Ramos 05/25/2020 S/P carpal tunnel release 1989'2014 LEFT S/P tonsillectomy Age 4 Family History Mother , Passed age 64 of pancreatic cancer Cancer Hypertension Father Hearing loss Grandmother (Maternal) , Passed age 79 of Stomach Cancer No problems noted. Uncle , Passed in 80's of Colorectal Cancer No problems noted. Brother No problems noted. Brother No problems noted. Sister No problems noted. Grandfather (Maternal) , Passed age 89 of Bladder Cancer No problems noted. Son No problems noted. Daughter Breast cancer Grandmother Cancer Grandfather Cancer Other No family history of adverse response to anesthesia No family history of allergies No family history of bleeding disorder Denies family history of Ovarian cancer Heart disease Lung cancer Asthma Social History Smoking Status: Former smoker Tobacco Type: Cigarettes Age Started Using Tobacco: 20; Age Quit Using Tobacco: 60; packs per day: 1; Cigarettes Per Day: 1 pack; Second Hand Exposure: No; Hx Alcohol Use: No Hx Substance Use: No Preferred Language: Gambian Communication Ability: Effective Visual Impairment: No Limitations Hearing Ability: Normal Retail Analytics Manager Required: No Beliefs That Will Affect Care: None marital status: Current Living Situation: Spouse Current Living Situation Comment: Lives with Stefan in 1 story house, level entry in back current occupational status: employed 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 How many Children do You have: 0 Other Information That Helps Us Care for You: No Feels Safe at Home: Yes Safety Concerns: Feels Safe At This Time Childhood Exposure to Second-Hand Smoke: Yes caffeine: Yes (ice tea) during the past year weight has: remained stable Dental Care, Regularly: Yes Physical Activity Frequency: Does not Exercise Seatbelt Use: always Sunscreen Use: No Assistive Devices: Cane, Walker and Wheelchair Assistive Devices Comment: to bring in glasses tomorrow Physical Exam Physical Exam: Vital signs are stable and she is oxygenating at 92% saturations on room air without tachypnea or use of accessory muscles. Pupils are equal and reactive, she has no meningismus. She there is no grossly evident SVC syndrome or pathologic adenopathy in the cervical and supraclavicular areas. Lung sounds are decreased but air seems to be moving reasonably well in all areas without clear rubs in the left upper zone. Cardiac rhythm is regular without pathological rubs. Her abdomen seems benign Neurologically she is alert and can appropriately follow commands. Her speech is fluent and she is able to answer questions reasonably well though I get the sense of at least a subtle cognitive dysfunction. She is able to easily move her arms, she can lift both legs against gravity but does seem to have some discoordination in their function. There are no signs of DVT Results & Data ([facility]) Vital Signs (Past 12 Hours) Vital Signs Temp Pulse Resp BP Pulse Ox O2 Del Method 11/08/22 08:00 Room Air 11/08/22 07:12 36.7 C 85 18 121/75 92 Room Air Laboratory Results Laboratory Results - last 24 hr 11/07/22 11/07/22 11/07/22 11:44 11:44 11:44 WBC 5.73 RBC 3.70 L Hgb 11.4 L Hct 32.7 L MCV 88.4 MCH 30.8 MCHC 34.9 RDW Std Deviation 52.0 H RDW Coeff of Sebastián 16.8 H Plt Count 71 L MPV 10.9 Immature Gran % (Auto) 6.1 Neut % (Auto) 79.6 Lymph % (Auto) 8.4 Rock % (Auto) 5.2 Eos % (Auto) 0.2 Baso % (Auto) 0.5 Neut # (Auto) 4.56 Lymph # (Auto) 0.48 L Rock # (Auto) 0.30 Eos # (Auto) 0.01 Baso # (Auto) 0.03 Immature Gran # (Auto) 0.35 H Absolute Nucleated RBC 0.08 Nucleated RBC % (auto) 1.4 PT 9.8 INR 0.9 APTT 21.9 PTT Ratio 0.8 D-Dimer 2610 H* Sodium 138 Potassium 3.8 Chloride 106 Carbon Dioxide 26 Anion Gap 6 BUN 37 H Creatinine 1.55 H Est Cr Clr Drug Dosing 35.4 Est GFR ( Amer) 41.7 Est GFR (Non-Af Amer) 36.0 BUN/Creatinine Ratio 23.9 H Glucose 94 Calcium 8.6 Total Bilirubin 1.0 AST 17 ALT 34 Alkaline Phosphatase 68 Troponin I High Sens Total Protein 5.7 L Albumin 3.1 L Globulin 2.6 Albumin/Globulin Ratio 1.2 Procalcitonin SARS-CoV-2, RNA, NAAT 11/07/22 11/07/22 11/07/22 11:44 11:44 13:00 WBC RBC Hgb Hct MCV MCH MCHC RDW Std Deviation RDW Coeff of Sebastián Plt Count MPV Immature Gran % (Auto) Neut % (Auto) Lymph % (Auto) Rock % (Auto) Eos % (Auto) Baso % (Auto) Neut # (Auto) Lymph # (Auto) Rock # (Auto) Eos # (Auto) Baso # (Auto) Immature Gran # (Auto) Absolute Nucleated RBC Nucleated RBC % (auto) PT INR APTT PTT Ratio D-Dimer Cancelled Sodium Potassium Chloride Carbon Dioxide Anion Gap BUN Creatinine Est Cr Clr Drug Dosing Est GFR ( Amer) Est GFR (Non-Af Amer) BUN/Creatinine Ratio Glucose Calcium Total Bilirubin AST ALT Alkaline Phosphatase Troponin I High Sens 13.1 Total Protein Albumin Globulin Albumin/Globulin Ratio Procalcitonin SARS-CoV-2, RNA, NAAT NEGATIVE 11/07/22 18:04 WBC RBC Hgb Hct MCV MCH MCHC RDW Std Deviation RDW Coeff of Sebastián Plt Count MPV Immature Gran % (Auto) Neut % (Auto) Lymph % (Auto) Rock % (Auto) Eos % (Auto) Baso % (Auto) Neut # (Auto) Lymph # (Auto) Rock # (Auto) Eos # (Auto) Baso # (Auto) Immature Gran # (Auto) Absolute Nucleated RBC Nucleated RBC % (auto) PT INR APTT PTT Ratio D-Dimer Sodium Potassium Chloride Carbon Dioxide Anion Gap BUN Creatinine Est Cr Clr Drug Dosing Est GFR ( Amer) Est GFR (Non-Af Amer) BUN/Creatinine Ratio Glucose Calcium Total Bilirubin AST ALT Alkaline Phosphatase Troponin I High Sens Total Protein Albumin Globulin Albumin/Globulin Ratio Procalcitonin 0.17 SARS-CoV-2, RNA, NAAT Diagnostic Findings Chest X-Ray 11/07/22 12:51 XR chest 1V portable CLINICAL HISTORY: left post chest pain TECHNIQUE: Single frontal radiograph of the chest was obtained. Comparison: Comparison is made to chest radiograph 03/08/2022 FINDINGS: A port catheter is seen. The cardiomediastinal silhouette is normal. There may be left retrocardiac airspace disease. There is a moderate left pleural effusion. IMPRESSION: Moderate left pleural effusion with possible left retrocardiac opacity compatible with atelectasis with or without superimposed aspiration/pneumonia. ACT 112: Negative or not required by law. Electronically signed by: Silvino Raphael M.D. 11/07/2022 1:29 PM Abdomen/Pelvis CT 11/07/22 13:44 CT abd pelvis IV con only CLINICAL HISTORY: left back pain TECHNIQUE: Helical axial images of the abdomen and pelvis were obtained and displayed. Automated dose lowering techniques and/or adjustment according to patient size were utilized for this exam. This exam was performed with in travenous contrast. COMPARISON: Comparison is made to CT abdomen pelvis 10/14/2022 FINDINGS: Lower chest: A pericardial effusion is again seen. Liver: Hepatic steatosis is noted. Gallbladder and biliary tree: Cholelithiasis is seen without evidence of cholecystitis. No intra- or extrahepatic biliary ductal dilation. Pancreas: Unremarkable, no focal lesions. Spleen: Unremarkable. Adrenals: Unremarkable. Kidneys and ureters: Unremarkable. Bladder: Unremarkable. Reproductive organs: Unremarkable. Bowel: Unremarkable. Lymph nodes Retroperitoneal: Unremarkable. Pelvic: Unremarkable. Mesenteric: Unremarkable. Peritoneum: Normal. Vessels: Atherosclerotic calcifications are seen. Abdominal wall: Unremarkable. Bones: Degenerative changes in the visualized spine. There is a compression deformity of L1 which is unchanged from prior exam. L4 compression deformity is unchanged. IMPRESSION: No acute abnormalities. Redemonstration of cholelithiasis without evidence of cholecystitis. No evidence of bowel obstruction. ACT 112: Negative or not required by law. Electronically signed by: Silvino Raphael M.D. 11/07/2022 3:51 PM Chest CTA 11/07/22 13:44 CT angio chest PE protocol HISTORY: 62 years-old Female with PE. Acute shortness of breath TECHNIQUE: Multiple CTA images of the chest were obtained after the intravenous administration of 116 ml Optiray. Coronal and sagittal MIPS were obtained from the axial data set and were submitted for review. All measurements were obtained according to NASCET criteria. A dose lowering technique was utilized adhering to the principles of ALARA. COMPARISON: CT abdomen and pelvis of same day, chest CT 10/14/2022 FINDINGS: Unremarkable thyroid. Left IJ Dptpig-s-[id number] catheter distal tip terminates within the left brachiocephalic vein SVC confluence. Heart is normal in size. Increased size of the pericardial effusion now measuring up to 2 cm posteriorly on image 107, previously 1 cm. Moderate coronary artery calcifications. Atherosclerosis of the thoracic aorta without aneurysm or dissection. Unremarkable pulmonary artery. No pulmonary emboli are identified. No pathol ogically enlarged lymph nodes identified. 6 mm epicardial lymph node on image 85, previously 5 mm. A paramediastinal left upper lobe lesion on image 186 measures 3.7 x 2.9 cm, previously measured at 3.6 x 2.8 cm. 3.1 x 2.7 left infrahilar opacity on image 128 previously measured cm 3.0 x 2.6 cm . There is a new cavitary irregular consolidative opacity within the left upper lobe measuring 2.4 x 2.8 cm on image 164 with adjacent progressive/new consolidative and groundglass opacities. Subtle subsegmental groundglass densities with tree-in-bud nodules are noted bilaterally. Mild pulmonary emphysema. Trace left pleural effusion. No pneumothorax. The central airways are patent with bronchial wall thickening. Cholelithiasis. Hepatic steatosis. Unremarkable soft tissues. Chronic L1 compression fracture. Unchanged subtle superior endplate compression of the T3 and T4 vertebral bodies. No acute fracture or destructive bone lesion identified. IMPRESSION: 1. No pulmonary emboli identified. 2. Increased size of the pericardial effusion with new trace left pleural effusion. 3. Left paramediastinal left upper lobe and left infrahilar left lower lobe lesions are redemonstrated which appear similar to the 10/14/2022 exam. 4. Progressive left upper and left lower lobe opacities may represent postobstructive pneumonitis with a new centrally cavitary consolidative focus within the lingula measuring 2.8 cm. Cavitary pneumonia is favored. Follow-up is needed to exclude malignancy. 5. Cholelithiasis. 6. Additional findings as above. ACT 112: Negative or not required by law. The above report was generated using voice recognition software. It may contain grammatical, syntax or spelling errors. Electronically signed by: Festus Torres M.D. 11/07/2022 3:[address] 11/07/22 13:48 CT OF THE HEAD WITHOUT CONTRAST CLINICAL HISTORY: Metastatic disease. Small cell lung cancer. Evaluate for mass. COMPARISON STUDY: MRI of the brain 11/10/[address] September 18, 2022. CT DOSE: 1807.74 mGy.cm TECHNIQUE: Helical axial images of the head were obtained without IV contrast. Automated exposure control was utilized for the study. A dose lowering technique was utilized adhering to the principles of ALARA. FINDINGS: No acute intracranial hemorrhage or midline shift is present. Ventricular system is stable. Previously described lesion within the cerebellar vermis is suboptimally assessed on this unenhanced exam but appear similar to head CT of September 10, 2022. This measures 2.1 cm. This may have minimal perip heral calcification. Mild effacement of the fourth ventricle remains unchanged. Cerebellar hypodensity is again noted. Diffuse white matter hypodensity have slightly progressed. There are no findings to suggest acute dural sinus thrombosis or acute territorial infarct. The basal cisterns are patent. No calvarial fractures are present. There are no suspicious calvarial lesions. IMPRESSION: 1. No acute intracranial hemorrhage. 2. Lesion within the cerebellar vermis, similar to head CT of September 18, 2022. This is suboptimally assessed on this unenhanced CT exam. 3. Mild progression of white matter hypodensities which favor posttreatment change. ACT 112: Negative or not required by law. Electronically signed by: Adan Bacon M.D. 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
[2022-11-08] MEDS: HEPARIN SOD 5,000 UNIT/0.5 ML VIAL SQ SCH ×2 (15:14→22:21)
--- NOTE | 2022-11-08 16:16 | Palliative Care Consultation ---
Date of Consultation November 08, 2022 Assessment & Plan (1) Palliative care encounter: Met with pt/family. Provided overview of Palliative Medicine, a subspecialty that provides specialized medical care for people living with a serious illness by offering a focus on quality of life. Palliative Medicine is often conflated with hospice: I advised patient/family that Palliative and hospice can be partners but we are not the same. It is important to understand the difference so that we may be informed, and not afraid. Palliative Medicine works to improve QOL through reduction of symptom burden/more control over their illness, for both the patient and family. Palliative medicine clinicians are board certified, specially-trained and another member of the patient's medical care team. We often provide an extra layer of support because our care is based on the needs of the patient, not the prognosis; as such, it's appropriate at any age/advancing stage of a serious illness and can be provided along with curative treatment. Palliative Medicine clinicians are also trained in advanced communication methodologies, to facilitate complex discussions about advanced illness planning, which are needed to help assure that the treatment choices match the patient's goals, aka delivering Goal Concordant care. Finally, we discussed that hospice is a visiting nurse service that focuses on care delivered at the very end of life for patients with terminal illness, with life expectancy less than 6 month. We had a lengthy discussion about the effects of steroids and long-term use. She notes that the thrush was 1 complication she did not experience but when they had begun researching this the also noted there are other potential downsides to long-term steroid use. We discussed the risk of bone density changes and the implications thereof. We also talked about changes that could be seen in dental integrity, skin integrity, blood sugars and mood. (2) Advanced care planning/counseling discussion: I met with patient and her at bedside for [id number] discussion x 50min. We spoke for approximately 45 minutes about her overall trajectory of cancer since diagnosis to this current admission. She is aware that she is outlived the expected survival for this cancer from her time of initial diagnosis. She also states that she is ready to continue to try additional therapies that may be available because she is "not ready to throw in the towel." Her is extremely supportive and advocates for anything she wishes to have. 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 Up until this past winter, they had a house in [facility] as well as their house here in [place] but currently have sold their house in [place] because it is a two-story that she is no longer able to move around safely. We discussed advance care planning and goals of care, patient stated that she has not been willing to contemplate or even initiate discussions about the what if scenarios if additional treatment or therapies might not be available. She states that she has always been unwilling to discuss this because it was a difficult topic that she was not ready to face. We discussed that there is a high potential with the brain mets that she may potentially be a situation or state where she is not able to communicate her wishes. Without knowing what she wants, the people in her family particularly her are left a guess of what her wishes might be. We discussed the importance of identifying what her wishes and goals for herself are and sharing them with her so that he is able to advocate for her should the time arise. She was in agreement with this and stated she would need a little bit of time to think about this. Encouraged her and her to discuss these issues through the course of the weekend. We also discussed the need to identify what her particular priorities would be at this junction especially from a goals of care perspective. Urged her to identify 3 or 4 top priorities that would matter to her most and to also identify what she would want in this situation if things were getting worse i.e. does she want to be home, in a facility close to home, or is there another family member's home she would prefer to be at etc. patient verbalized understanding of the above conversation and indicated that this has been a long time coming. She is appreciative of our dialogue and her conversation states that she has a lot to talk about with her through the weekend. Both she and her expressed appreciation for the above conversation and the open dialogue. Plan * Patient with no acute symptom management needs at this time. * I will follow-up on Friday for an additional goals of care and advance care planning discussion. * She is awaiting input from Dr. Arrieta on Friday with regards to whether or not additional chemotherapy interventions may be available. * Of note, she tells me has never had a bone density scan. She has been on long-term chronic steroid therapy so it would be worthwhile to assess bone density status and determine if additional preventive therapies or interventions are warranted at this time. She is in agreement with this. History of Present Illness Reason for Consultation: goals of care, ACP, symptom mgt Requesting Physician: Han Buckner Attending Physician: Ricky Mejias MD History of Present Illness Lori is a 62yo female with metastatic small cell lung cancer and admission for diarrhea/JOSE ANTONIO/possible postobstructive pneumonitis. She reports a 5 day history of increasing weakness, diarrhea, JOSE ANTONIO and imaging shows an evolving postobstructive pneumonia. She indicates that she has had some increased discomfort in the left suprascapular area posteriorly but denies hemoptysis. She has a history of multiply relapsed small cell lung cancer including INSPECTOR [employer]TER mets with ongoing issues of neurologic compromise and dysphagia. Radiology confirmed that she is evolving a postobstructive pneumonia. She was initially diagnosed with her small cell lung cancer in the fall 2019 which presented as initial stage III disease and is status post 6 cycles of etoposide and carboplatin along with concomitant thoracic radiation which was completed in September 2020. She then underwent prophylactic whole brain radiation in 10 fractions. She had relapse INSPECT[employer]TER disease as well as possible progression to the primary site which was at that time treated with stereotactic radiosurgery to the INSPECT[employer] lesion and initiation of pembrolizumab. She then experienced relative stability through November 2021. Further progression at that time led to the initiation of therapy with the topotecanand systemic imaging revealed stable for the second half of 2021. Unfortunately the MRI then revealed hemorrhagic centered cerebellar masses increased from prior. She was seen by the [facility] neurosurgical team and offered options of systemic bevacizumab versus laser thermal ablation intervention. She initiated chemo therapy in June 27, 2022 and had a repeat scan of the brain August 2022 which showed some stability but no significant progression of the tumors. Allergies Allergy/AdvReac Type Severity Reaction Status Date / Time lisinopril AdvReac Intermediate Cough Verified 11/07/22 16:22 Home Medications Medication Instructions Recorded Confirmed Type pregabalin 150 mg capsule 150 mg PO BID #60 caps 04/02/22 11/07/22 Rx meclizine 25 mg tablet 25 mg PO Q6H PRN dizziness #60 tabs 04/30/22 11/07/22 Rx ondansetron HCl 4 mg tablet 4 mg PO Q8H PRN nausea and 10/14/22 11/07/22 Rx vomiting #30 tabs pantoprazole 40 mg granules 40 mg PO BID 10/14/22 11/07/22 History delayed-release for susp in packet amlodipine 10 mg tablet 5 mg PO QAM 11/06/22 11/07/22 History magnesium oxide 500 mg tablet 500 mg PO QAM 11/06/22 11/07/22 History venlafaxine 75 mg tablet 75 mg PO QAM 11/06/22 11/07/22 History dexamethasone 2 mg tablet 2 mg PO DAILY 11/07/22 11/07/22 History lorazepam 0.5 mg tablet 0.5 - 1 mg PO Q8H PRN anxiety 11/07/22 11/07/22 History Patient History Medical History (Updated 11/08/22 @ 16:29 by Kim Mireles DNP) Advanced care planning/counseling discussion Ambulatory dysfunction Anemia Anxiety Arthritis Bilat Knees & lower back Chronic kidney disease, stage 3 (moderate) Chronic steroid use Depression Esophageal spasm Esophageal stenosis Esophageal ulcer GERD (gastroesophageal reflux disease) H/O idiopathic thrombocytopenic purpura (09/2020) treated w/ steroids History of blood transfusion Hypercholesterolemia Hypertension Hypomagnesemia Medical marijuana use patient has not used since march 2021 Palliative care encounter Pancytopenia 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) Renal insufficiency Restless leg syndrome Small cell lung cancer (04/21/20) chemo finished in Sep 2020 Symptomatic anemia Surgical History H/O arthroscopic knee surgery 1998 RIGHT/ 2010 LEFT H/O tubal ligation 1991 H/O: section x2 1987 & 1982 History of bronchoscopy (04/21/20) 04/21/2020 - with positive biopsy History of esophagogastroduodenoscopy (EGD) History of excision of pilonidal cyst 1987 History of open reduction and internal fixation (ORIF) procedure (07/2020) L ankle secondary to fracture History of tooth extraction molars Port-A-Cath in place (05/25/20) Insertion of Mediport Left Subclavian with Fluoroscopy Dr. Ramos 05/25/2020 S/P carpal tunnel release 1990's RT / 2015 LEFT S/P tonsillectomy Age 4 Family History Mother , Passed age 64 of pancreatic cancer Cancer Hypertension Father Hearing loss Grandmother (Maternal) , Passed age 79 of Stomach Cancer No problems noted. Uncle , Passed in 80's of Colorectal Cancer No problems noted. Brother No problems noted. Brother No problems noted. Sister No problems noted. Grandfather (Maternal) , Passed age 89 of Bladder Cancer No problems noted. Son No problems noted. Daughter Breast cancer Grandmother Cancer Grandfather Cancer Other No family history of adverse response to anesthesia No family history of allergies No family history of bleeding disorder Denies family history of Ovarian cancer Heart disease Lung cancer Asthma Social History Smoking Status: Former smoker Tobacco Type: Cigarettes Age Started Using Tobacco: 20; Age Quit Using Tobacco: 60; packs per day: 1; Cigarettes Per Day: 1 pack; Second Hand Exposure: No; Hx Alcohol Use: No Hx Substance Use: No Preferred Language: Guatemalan Communication Ability: Effective Visual Impairment: No Limitations Hearing Ability: Normal Matrix Drier Tender Required: No Beliefs That Will Affect Care: None marital status: Current Living Situation: Spouse Current Living Situation Comment: Lives with Stefan in 1 story house, level entry in back current occupational status: employed 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 How many Children do You have: 0 Other Information That Helps Us Care for You: No Feels Safe at Home: Yes Safety Concerns: Feels Safe At This Time Childhood Exposure to Second-Hand Smoke: Yes caffeine: Yes (ice tea) during the past year weight has: remained stable Dental Care, Regularly: Yes Physical Activity Frequency: Does not Exercise Seatbelt Use: always Sunscreen Use: No Assistive Devices: Cane, Walker and Wheelchair Assistive Devices Comment: to bring in glasses tomorrow Review of Systems Review of Systems: All systems reviewed & are unremarkable except as noted in Subjective Physical Exam Physical Exam: Chronically ill-appearing patient, resting in bed. She is awake and alert. She is pleasant and cooperative through this visit. She is able to answer questions but occasionally has some word location difficulties and/or will repeat herself. Respirations are even without any obvious distress. There is no use of accessory muscles noted. There is no conversational dyspnea. She has cushingoid facies consistent with long-term steroid use. There is no JVD or gross murmur. Abdomen is softly distended. There is mild tenderness along bilateral flank regions and up to her rib cage. She attributes this to perhaps an increased cough. She has some mild generalized weakness. Her lower extremities are significantly weak and she is not able to participate in strength testing. Her skin is pale and warm to touch. She is awake alert and oriented x3. Results & Data ([facility]) Vital Signs (Past 12 Hours) Vital Signs Temp Pulse Resp BP Pulse Ox O2 Del Method 11/08/22 08:00 Room Air 11/08/22 07:12 36.7 C 85 18 121/75 92 Room Air PG Care Time/CCT Total # of Minutes Spent Total Time Spent with Patient: Total time spent is greater than 50% in coordination of care (as documented) at patient's floor/unit and/or counseling patient: Advanced Care Planning 56680 Advanced Care Planning 30 Min 11021 Advanced Care Planning Additional 30 Min Coding Level of Care Code New Pt INP/OBS CONSULT LVL 5, 80 MIN Patient Type New History Comprehensive Exam Comprehensive Medical Decision Making High Complexity Diagnoses Palliative care encounter Z51.5 Advanced care planning/counseling discussion Z71.89 Additional Codes Advanced Care Planning - 00406 Advanced Care Planning Additional 30 Min: 78199 Advanced Care Planning Additional 30 Min ([id number]) Advanced Care Planning - 42207 Advanced Care Planning 30 Min: 05531 Advanced C are Planning 30 Min ([id number])
--- NOTE | 2022-11-08 16:35 | XCELERA ---
[id number]
[2022-11-08] MEDS: LORazepam 0.5 MG TAB PO SCH (20:09)
--- NOTE | 2022-11-09 00:47 | Hospitalist Progress Note ---
Date of Service November 08, 2022 Assessment & Plan (1) Small cell lung cancer: Plan: Weakness, diarrhea in a patient admitted with small cell lung cancer. She was planned to have an esophageal dilatation today. Also planned to resume chemotherapy on 11/08 Patient coming in with fatigue, diarrhea, JOSE ANTONIO. will place on IV fluids, and monitor. Her CT scan shows possible evidence of post obstructive pneumonitis, patient will be paced on cefepime discussed case with pulmonary, will review CT scan,, no consult needed. CT scan also showed pericardial effusion, this is stable. Also reached out to Dr. Mohan via tiger text to see if raidation therapy is recommended. 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 Stable (3) Depression: Plan: resume home meds (4) Esophageal stenosis: Plan: tolerating diet. May need to consult GI for esophageal dilatation or may need this rescheduled as an outpatient. (5) Shoulder pain: Plan: Placed on tramadol. will monitor. (6) Pericardial effusion: Plan: stable and chronic. Plan DVT: heparin once JOSE ANTONIO resolves, paula place on lovenox. Admission and Anticipated Discharge Date Admission Date: November 07, 2022 Subjective Patient seen in the room along with her Patient reports that the pain in lower back is slightly improved since admission Physical Exam Physical Exam: Head and ENT no thyroid enlargement trachea midline Cardiovascular S1-S2 are normal no S3 Lungs bilateral air entry fair no wheezing Abdomen soft nondistended positive bowel sounds no rebound tenderness Extremity shows trace edema Neurologically no focal deficits Skin shows no rash no cyanosis Results & Data Results [facility] ([facility]) Vital Signs (Past 12 Hours) Vital Signs Temp Pulse Resp BP Pulse Ox O2 Del Method O2 Flow Rate 11/08/22 20:58 36.6 C 85 18 120/75 92 Nasal Cannula 2 11/08/22 19:57 Nasal Cannula 2 11/08/22 16:10 36.4 C L 86 18 117/74 86 L Room Air 11/08/22 16:32 93 Nasal Cannula 2 PG Care Time/CCT Total # of Minutes Spent Total Time Spent with Patient: Total time spent is greater than 50% in coordination of care (as documented) at patient's floor/unit and/or counseling patient: Coding Level of Care Code 56348 SUB INP/OBS CARE MIN Diagnoses Small cell lung cancer C34.90 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
[2022-11-09] MEDS: HEPARIN SOD 5,000 UNIT/0.5 ML VIAL SQ SCH ×3 (05:01→22:51)
[2022-11-09] MEDS: CEFEPIME 2,000 MG in SYRINGE 0 ML IV SCH ×2 (05:01→17:48)
[2022-11-09] MEDS: traMADol HCL 50 MG TABLET PO PRN ×3 (05:06→13:33)
[2022-11-09 06:00] LABS: Hematocrit (blood only) 30.6 % (37.0-47.0); Hemoglobin 10.7 g/dl (12.0-16.0); Mean Corpuscular Hemoglobin 31.1 pg (25.0-34.0); Mean Platelet Volume 10.8 fL (9.4-12.4); Nucleated RBC # (auto) 0.05 K/uL (0-0.12); Nucleated RBC % (auto) 0.9 %; Platelet Count 77 K/uL (130-400); RDW Coefficient of Variation 16.4 % (11.5-14.5); RDW Standard Deviation 52.2 fL (36.4-46.3); Red Blood Count 3.44 M/uL (4.20-5.40); White Blood Count 5.34 K/ul (4.8-10.8)
[2022-11-09 06:21] LABS: Albumin Level 2.9 gm/dl (3.4-5.0); BUN Creatinine Ratio 24.6 (10-20); Bilirubin,Total 0.7 mg/dl (0.2-1.0); C Reactive Protein 16.43 mg/dl (0-0.5); Calcium 8.9 mg/dl (8.5-10.1); Creatinine Clr Calc Pharmacy 38.6 ml/min; Est GFR (African American) 46.4 ml/min; Globulin 2.9 gm/dl (2.5-4.0); Potassium 4.2 mmol/L (3.5-5.1); Total Protein 5.8 gm/dl (6.0-8.3)
[2022-11-09] MEDS: amLODIPine BESYLATE 5 MG TAB PO SCH (08:54)
[2022-11-09] MEDS: MAGNESIUM OXIDE 400 MG TAB PO SCH (08:54)
[2022-11-09] MEDS: VENLAFAXINE HCL 37.5 MG TAB PO SCH (08:54)
[2022-11-09] MEDS: PANTOprazole 40 MG TAB PO SCH ×2 (08:54→20:13)
[2022-11-09] MEDS: dexAMETHasone 4 MG TAB PO SCH (08:54)
[2022-11-09] MEDS: PREGABALIN 150 MG CAP PO SCH ×2 (08:56→20:14)
--- NOTE | 2022-11-09 18:46 | Hospitalist Progress Note ---
Date of Service November 09, 2022 Assessment & Plan (1) Small cell lung cancer: Plan: Weakness, diarrhea in a patient admitted with small cell lung cancer. She was planned to have an esophageal dilatation today. Also planned to resume chemotherapy on 11/08 Patient coming in with fatigue, diarrhea, JOSE ANTONIO. will place on IV fluids, and monitor. Her CT scan shows possible evidence of post obstructive pneumonitis, patient will be placed on cefepime discussed case with pulmonary, will review CT scan,, no consult needed. CT scan also showed pericardial effusion, this is stable. Also reached out to Dr. Mohan via tiger text to see if raidation therapy is recommended. 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 Stable (3) Depression: Plan: resume home meds (4) Esophageal stenosis: Plan: tolerating diet. May need to consult GI for esophageal dilatation or may need this rescheduled as an outpatient. (5) Shoulder pain: Plan: Placed on tramadol. will monitor. (6) Pericardial effusion: Plan: stable and chronic. Plan DVT: heparin once JOSE ANTONIO resolves, paula place on lovenox. Admission and Anticipated Discharge Date Admission Date: November 07, 2022 Subjective Patient reports that the pain in lower back is slightly improved since admission Otherwise appetite still decreased Discussed with patient and her [id number] regarding patient's understanding of the palliative consult Physical Exam Physical Exam: Head and ENT no thyroid enlargement trachea midline Cardiovascular S1-S2 are normal no S3 Lungs bilateral air entry fair no wheezing Abdomen soft nondistended positive bowel sounds no rebound tenderness Extremity shows trace edema Neurologically no focal deficits Skin shows no rash no cyanosis Results & Data [facility]) Vital Signs (Past 12 Hours) Vital Signs Temp Pulse Pulse Resp BP BP Pulse Ox 11/09/22 16:08 36.5 C 84 18 124/75 93 11/09/22 13:39 36.8 C 84 16 134/78 93 11/09/22 07:35 11/09/22 07:53 36.3 C L 80 16 152/94 H 93 O2 Del Method O2 Flow Rate 11/09/22 16:08 Nasal Cannula 2 11/09/22 13:39 Nasal Cannula 4 11/09/22 07:35 Nasal Cannula 2 11/09/22 07:53 Nasal Cannula PG Care Time/CCT Total # of Minutes Spent Total Time Spent with Patient: Total time spent is greater than 50% in coordination of care (as documented) at patient's floor/unit and/or counseling patient: Coding Level of Care Code 15206 SUB INP/OBS CARE 2/35MIN Diagnoses Small cell lung cancer C34.90 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
[2022-11-09] MEDS: LORazepam 0.5 MG TAB PO SCH (20:13)
[2022-11-10 06:19] LABS: BUN Creatinine Ratio 23.9 (10-20); Calcium 8.8 mg/dl (8.5-10.1); Est GFR (African American) 49.8 ml/min
[2022-11-10] MEDS: traMADol HCL 50 MG TABLET PO PRN ×3 (07:13→21:36)
[2022-11-10] MEDS: CEFEPIME 2,000 MG in SYRINGE 0 ML IV SCH ×2 (07:13→17:37)
[2022-11-10] MEDS: HEPARIN SOD 5,000 UNIT/0.5 ML VIAL SQ SCH ×3 (07:13→21:33)
[2022-11-10] MEDS: dexAMETHasone 4 MG TAB PO SCH (09:34)
[2022-11-10] MEDS: VENLAFAXINE HCL 37.5 MG TAB PO SCH (09:34)
[2022-11-10] MEDS: MAGNESIUM OXIDE 400 MG TAB PO SCH (09:34)
[2022-11-10] MEDS: POLYETHYLENE (MIRALAX) 17 GM PACK PO PRN (09:34)
[2022-11-10] MEDS: PANTOprazole 40 MG TAB PO SCH ×2 (09:34→19:39)
[2022-11-10] MEDS: amLODIPine BESYLATE 5 MG TAB PO SCH (09:34)
[2022-11-10] MEDS: PREGABALIN 150 MG CAP PO SCH ×2 (09:37→19:38)
[2022-11-10] MEDS: ALBUT/IPRATROP 3MG/0.5MG NEB 3 ML VIAL NEB PRN ×2 (11:46→16:27)
--- NOTE | 2022-11-10 16:20 | Hospitalist Progress Note ---
Date of Service November 10, 2022 Assessment & Plan (1) Small cell lung cancer: Plan: Weakness, diarrhea in a patient admitted with small cell lung cancer. She was planned to have an esophageal dilatation today. Also planned to resume chemotherapy on 11/08 Patient coming in with fatigue, diarrhea, JOSE ANTONIO. will place on IV fluids, and monitor. Her CT scan shows possible evidence of post obstructive pneumonitis, patient will be placed on cefepime discussed case with pulmonary, will review CT scan,, no consult needed. CT scan also showed pericardial effusion, this is stable. Also reached out to Dr. Mohan via tiger text to see if RT is recommended. 11/08-we will obtain palliative care input We will discuss with oncology further plan regarding chemo 11/09-continue with analgesics Palliative consult noted Continue with antibiotics with cefepime 11/10-continue with IV cefepime Further plan to continue chemotherapy as per Dr. 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 Stable (3) Depression: Plan: resume home meds (4) Esophageal stenosis: Plan: tolerating diet. May need to consult GI for esophageal dilatation or may need this rescheduled as an outpatient. (5) Shoulder pain: Plan: Placed on tramadol. will monitor. (6) Pericardial effusion: Plan: stable and chronic. Plan DVT: heparin once JOSE ANTONIO resolves, paula place on lovenox. Admission and Anticipated Discharge Date Admission Date: November 07, 2022 Subjective Progressive improvement in her lower back pain Patient reports generalized weakness Patient concerned about abdominal discomfort related to constipation type symptoms Patient wants to know about her ongoing plan with chemotherapy as coordinated by Dr. Arrieta Physical Exam Physical Exam: Head and ENT no thyroid enlargement trachea midline Cardiovascular S1-S2 are normal no S3 Lungs bilateral air entry fair no wheezing Abdomen soft nondistended positive bowel sounds no rebound tenderness Extremity shows trace edema Neurologically no focal deficits Skin shows no rash no cyanosis Results & Data Results & Data ([facility]) Vital Signs (Past 12 Hours) Vital Signs Temp Pulse Pulse Resp BP Pulse Ox O2 Del Method 11/10/22 15:32 93 Nasal Cannula 11/10/22 14:53 36.4 C L 89 18 108/71 91 Nasal Cannula 11/10/22 11:46 88 16 91 Nasal Cannula 11/10/22 07:00 Nasal Cannula 11/10/22 07:48 36.8 C 88 16 136/84 95 Nasal Cannula O2 Flow Rate 11/10/22 15:32 3 11/10/22 14:53 3 11/10/22 11:46 2 11/10/22 07:00 2 11/10/22 07:48 4 Laboratory Results BMP 11/10/22 05:33 Sodium 135 L Potassium 4.0 Chloride 103 Carbon Dioxide 24 BUN 32 H Creatinine 1.34 H Glucose 172 H Calcium 8.8 PG Care Time/CCT Total # of Minutes Spent Total Time Spent with Patient: Total time spent is greater than 50% in coordination of care (as documented) at patient's floor/unit and/or counseling patient: Coding Level of Care Code 92214 SUB INP/OBS CARE 235MIN Diagnoses Small cell lung cancer C34.90 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
[2022-11-10] MEDS: LORazepam 0.5 MG TAB PO SCH (19:38)
[2022-11-11] MEDS: HEPARIN SOD 5,000 UNIT/0.5 ML VIAL SQ SCH ×3 (05:42→19:59)
[2022-11-11] MEDS: CEFEPIME 2,000 MG in SYRINGE 0 ML IV SCH (05:44)
[2022-11-11 07:22] LABS: BUN Creatinine Ratio 26.5 (10-20); Calcium 9.3 mg/dl (8.5-10.1); Creatinine Clr Calc Pharmacy 41.6 ml/min; Est GFR (African American) 50.7 ml/min; Est GFR (Non-African American) 43.7 ml/min; Potassium 5.1 mmol/L (3.5-5.1)
[2022-11-11] MEDS: VENLAFAXINE HCL 37.5 MG TAB PO SCH (08:29)
[2022-11-11] MEDS: dexAMETHasone 4 MG TAB PO SCH (08:29)
[2022-11-11] MEDS: PANTOprazole 40 MG TAB PO SCH ×2 (08:29→19:59)
[2022-11-11] MEDS: amLODIPine BESYLATE 5 MG TAB PO SCH (08:29)
[2022-11-11] MEDS: PREGABALIN 150 MG CAP PO SCH ×2 (08:29→19:59)
[2022-11-11] MEDS: traMADol HCL 50 MG TABLET PO PRN ×3 (08:29→18:24)
[2022-11-11] MEDS: MAGNESIUM OXIDE 400 MG TAB PO SCH (08:29)
--- NOTE | 2022-11-11 09:37 | Palliative Care Progress Note ---
Date of Service November 11, 2022 Assessment & Plan Admission and Anticipated Discharge Date Admission Date: November 07, 2022 Results & Data ([facility]) Vital Signs (Past 12 Hours) Vital Signs Temp Pulse Resp BP Pulse Ox O2 Del Method O2 Flow Rate 11/11/22 07:10 Nasal Cannula 4 11/11/22 07:10 36.5 C 89 18 131/76 92 Nasal Cannula 4 11/10/22 21:39 36.8 C 81 18 122/81 94 Room Air Diagnostic Findings PG Care Time/CCT Total # of Minutes Spent Total Time Spent with Patient: Total time spent is greater than 50% in coordination of care (as documented) at patient's floor/unit and/or counseling patient: Coding Diagnoses
--- NOTE | 2022-11-11 10:21 | Hematology/Oncology Prog Note ---
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 She was started on bevacizumab in June, for vasogenic edema. Patient was admitted for pneumonia. Based on review of her imaging, there is no clear evidence to suggest disease progression at this time. If she is found to have disease progression, options for treatment would be retreatment with carboplatin/etoposide or topotecan since she had good response to both of these treatment regimen with relapse more than 6 months after treatment. Other options would be single agent Taxol, gemcitabine, Temodar or vinorelbine. She is aware that this would depend on her performance status and if performance status is poor, she would not be a candidate for this treatment. At this time, suspect that her performance status appears little bit poor than her baseline because of pneumonia. 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 Continue pharmacologic prophylaxis while inpatient given immobility, malignancy and pneumonia. I had an extensive discussion with patient and her who agreed with this plan Admission and Anticipated Discharge Date Admission Date: November 07, 2022 Subjective Complains of left-sided shoulder blade pain , Shortness of breath as well as fatigue. Shortness of breath seems to have slightly improved since admission. indicates that she has been little bit more confused since admission. Review of Systems Review of Systems: All systems reviewed & are unremarkable except as noted in Subjective Results & Data ([facility]) Vital Signs (Past 12 Hours) Vital Signs Temp Pulse Resp BP Pulse Ox O2 Del Method O2 Flow Rate 11/11/22 07:10 Nasal Cannula 4 11/11/22 07:10 36.5 C 89 18 131/76 92 Nasal Cannula 4
[2022-11-11] MEDS ORDERED: PIPERACILLIN/TAZOBACTAM 3.375 GM (over 30 mins) IV ONE (10:45)
--- NOTE | 2022-11-11 12:01 | Gastrointestinal Consultation ---
Date of Consultation November 11, 2022 Assessment & Plan (1) Esophageal stricture: (2) GERD (gastroesophageal reflux disease): (3) Dysphagia: Plan Patient is a 62 y.o. female with a history of GERD with known stenosis and returning dysphagia recently scheduled for outpatient EGD with dilation canceled due to acute illness now improved slightly after treatment for thrush. -Tolerating regular diet. Recommend mechanical soft diet to reduce risk of food bolus. -Continue Pantoprazole 40 mg BID. -Will reschedule outpatient EGD in 2 weeks when acute issues are resolved. Office will contact patient to arrange. -Rest per primary team. Thank you for allowing us to participate in the care of this patient. If you have any questions or concerns, please do not hesitate to contact us. Supervising Physician Co-Signing Physician Notes Agree with VALE Ly as above Abd: Soft, NT, ND, +BS Continue current therapy and supportive care History of Present Illness Reason for Consultation: Dysphagia Requesting Physician: Dr. Banegas Attending Physician: Tito Banegas MD History of Present Illness Patient is a very pleasant 62 y.o. female with a history of metastatic lung cancer as well as GERD with esophageal stenosis admitted with any pnx/pneumonitis as well as diarrhea with JOSE ANTONIO. She was scheduled for outpatient EGD with therapeutic dilation for dysphagia with Dr. Wall last week but was canceled due to acute illness. GI has been consulted at this time due to ongoing dysphagia to solid foods. Her states she has also had thrush and sx have improved with treating the thrush. Tolerating diet without vomiting or food bolus during this admission. Continues Pantoprazole 40 mg BID. Allergies Allergy/AdvReac Type Severity Reaction Status Date / Time lisinopril AdvReac Intermediate Cough Verified 11/07/22 16:22 Home Medications Medication Instructions Recorded Confirmed Type pregabalin 150 mg capsule 150 mg PO BID #60 caps 04/02/22 11/07/22 Rx meclizine 25 mg tablet 25 mg PO Q6H PRN dizziness #60 tabs 04/30/22 11/07/22 Rx ondansetron HCl 4 mg tablet 4 mg PO Q8H PRN nausea and 10/14/22 11/07/22 Rx vomiting #30 tabs pantoprazole 40 mg granules 40 mg PO BID 10/14/22 11/07/22 History delayed-release for susp in packet amlodipine 10 mg tablet 5 mg PO QAM 11/06/22 11/07/22 History magnesium oxide 500 mg tablet 500 mg PO QAM 11/06/22 11/07/22 History venlafaxine 75 mg tablet 75 mg PO QAM 11/06/22 11/07/22 History dexamethasone 2 mg tablet 2 mg PO DAILY 11/07/22 11/07/22 History lorazepam 0.5 mg tablet 0.5 - 1 mg PO Q8H PRN anxiety 11/07/22 11/07/22 History Patient History Medical History Advanced care planning/counseling discussion Ambulatory dysfunction Anemia Anxiety Arthritis Bilat Knees & lower back Chronic kidney disease, stage 3 (moderate) Chronic steroid use Depression Esophageal spasm Esophageal stenosis Esophageal ulcer GERD (gastroesophageal reflux disease) H/O idiopathic thrombocytopenic purpura (09/2020) treated w/ steroids History of blood transfusion Hypercholesterolemia Hypertension Hypomagnesemia Medical marijuana use patient has not used since march 2021 Palliative care encounter Pancytopenia 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) Renal insufficiency Restless leg syndrome Small cell lung cancer (04/21/20) chemo finished in Sep 2020 Symptomatic anemia Surgical History H/O arthroscopic knee surgery 1998 RIGHT/ 2010 LEFT H/O tubal ligation 1991 H/O: section x2 1987 & 1982 History of bronchoscopy (04/21/20) 04/21/2020 - with positive biopsy History of esophagogastroduodenoscopy (EGD) History of excision of pilonidal cyst 1987 History of open reduction and internal fixation (ORIF) procedure (07/2020) L ankle secondary to fracture History of tooth extraction molars Port-A-Cath in place (05/25/20) Insertion of Mediport Left Subclavian with Fluoroscopy Dr. Ramos 05/25/2020 S/P carpal tunnel release 1990's RT / 2014 LEFT S/P tonsillectomy Age 4 Family History Mother , Passed age 64 of pancreatic cancer Cancer Hypertension Father Hearing loss Grandmother (Maternal) , Passed age 79 of Stomach Cancer No problems noted. Uncle , Passed in 80's of Colorectal Cancer No problems noted. Brother No problems noted. Brother No problems noted. Sister No problems noted. Grandfather (Maternal) , Passed age 89 of Bladder Cancer No problems noted. Son No problems noted. Daughter Breast cancer Grandmother Cancer Grandfather Cancer Other No family history of adverse response to anesthesia No family history of allergies No family history of bleeding disorder Denies family history of Ovarian cancer Heart disease Lung cancer Asthma Social History Smoking Status: Former smoker Tobacco Type: Cigarettes Age Started Using Tobacco: 20; Age Quit Using Tobacco: 60; packs per day: 1; Cigarettes Per Day: 1 pack; Second Hand Exposure: No; Hx Alcohol Use: No Hx Substance Use: No Preferred Language: Montenegrin Communication Ability: Effective Visual Impairment: No Limitations Hearing Ability: Normal Child Welfare Caseworker Required: No Beliefs That Will Affect Care: None marital status: Current Living Situation: Spouse Current Living Situation Comment: Lives with Stefan in 1 story house, level entry in back current occupational status: employed 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 How many Children do You have: 0 Other Information That Helps Us Care for You: No Feels Safe at Home: Yes Safety Concerns: Feels Safe At This Time Childhood Exposure to Second-Hand Smoke: Yes caffeine: Yes (ice tea) during the past year weight has: remained stable Dental Care, Regularly: Yes Physical Activity Frequency: Does not Exercise Seatbelt Use: always Sunscreen Use: No Assistive Devices: Cane, Walker and Wheelchair Assistive Devices Comment: to bring in glasses tomorrow Review of Systems Constitutional: + fatigue and + weakness Respiratory: + dyspnea and + dyspnea on exertion Cardiovascular: no chest pain and no palpitations Gastrointestinal: as per Subjective / HPI; no diarrhea/loose stools (now resolved) Musculoskeletal: + joint pain (back and left shoulder) Physical Exam Constitutional: WD/WN, vitals as above Eyes: EOM intact bilaterally Respiratory: no respiratory distress Auscultation: + diminished lung sounds Cardiovascular: Rate/Rhythm: regular rate and regular rhythm Gastrointestinal (Abdomen): Inspection/Auscultation: normal bowel sounds; abdomen not distended Percussion/Palpation: abdomen soft; abdomen nontender Psychiatric: A+Ox3, euthymic affect Results & Data ([facility]) Vital Signs (Past 12 Hours) Vital Signs Temp Pulse Resp BP Pulse Ox O2 Del Method O2 Flow Rate 11/11/22 07:10 Nasal Cannula 4 11/11/22 07:10 36.5 C 89 18 131/76 92 Nasal Cannula 4 PG Care Time/CCT Total # of Minutes Spent Total Time Spent with Patient: Total time spent is greater than 50% in coordination of care (as documented) at patient's floor/unit and/or counseling patient: Coding Level of Care Code 31903 INT INP/OBS CARE 3/75MIN Diagnoses Esophageal stricture K22.2 GERD (gastroesophageal reflux disease) K21.9 Dysphagia R13.10
--- NOTE | 2022-11-11 12:15 | XCELERA ---
[id number]
--- NOTE | 2022-11-11 14:39 | Hospitalist Progress Note ---
Date of Service November 11, 2022 Assessment & Plan (1) Small cell lung cancer: Plan: Weakness, diarrhea in a patient admitted with small cell lung cancer. 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 Stable (5) Depression: Plan: resume home meds (6) Esophageal stenosis: Plan: GI on consult Plan is to reschedule her osephageal dilation in 2 weks outpatient continue soft diet (7) Shoulder pain: Plan: Placed on tramadol. will monitor. Plan DVT: heparin once JOSE ANTONIO resolves, paula place on lovenox. Admission and Anticipated Discharge Date Admission Date: November 07, 2022 Subjective patient seen and examined, complains of chest pain whenever she gets up or sits up Review of Systems Review of Systems: All systems reviewed are negative, apart from the ones contained in the history. Physical Exam Physical Exam: The patient is awake, alert and oriented 3, well developed and well nourished, normocephalic and atraumatic, lying in bed and in no acute distress. HEENT--PERRL, EOMI, mucous membranes and oropharynx mildly dry Neck--supple. No JVD. No bruits. Thyroid normal, trachea midline, no adenopathy. Heart--normal S1 and S2. No murmurs, rubs or gallops. Lungs--clear bilaterally, no respiratory distress, no accessory muscle use. Abdomen--normal bowel sounds and soft. Mild epigastric and left sided abdominal pain Extremities--no cyanosis or clubbing. No edema. Dermatologic--normal skin turgor, normal color, no abnormal lymph nodes, no rash. Neurologic--cranial nerves II through XII grossly intact. Rheumatologic--normal range of motion. Psychiatric--normal affect. 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
[2022-11-11] MEDS: PIPERACILLIN/TAZOBACTAM 3.375 GM CI (over 4 hrs) IV SCH ×2 (15:54→23:35)
--- NOTE | 2022-11-11 16:17 | Cardiology Consultation ---
Date of Consultation November 11, 2022 Assessment & Plan (1) Pericardial effusion: (2) Chest pain: Plan 1. Pericardial effusion: Pericardial effusion was 1st identified on chest CT in September of 2020. It appears have waxed and waned in size on various studies over 2 years. This is likely related to her malignancy. It does not appear to have caused any hemodynamic compromise. I do not believe it is currently causing any hemodynamic compromise. The chronicity makes any need for drainage or the likelihood of tamponade quite low. I do not believe any additional evaluation is required currently. In the event that there were hemodynamic compromise the patient would best be served by pericardial window given the likelihood that this represents an effusion related to malignancy. 2. Chest pain: Her pain seems more likely related to her pneumonia and or cavitary lung lesion. This is based on the location and nature of her symptoms. I Do not believe this is likely related to any pericardial inflammation. Since the effusion itself is not inflammatory it is unlikely that this is causing pleuritic chest pain. History of Present Illness Reason for Consultation: Pericardial effusion Requesting Physician: Bassam Attending Physician: Tito Banegas MD History of Present Illness The patient is an unfortunate 62-year-old woman with a history of metastatic small cell lung cancer who was admitted to the hospital with weakness, dehydration and acute renal failure. At the time of admission imaging studies also revealed evidence of a pericardial effusion and what appeared to be a postobstructive left lung pneumonia. According to the patient's who was present for today's interview she has had a progressive decline in function with the reduction in steroid therapy. Few months ago the patient apparently was ambulatory and well oriented. She became weaker and more confused in the past few weeks. She spent several months in a wheelchair. While her brain metastases appeared to be stable, there has been some cognitive effects from therapy. It seems that within the past day the patient began to experience symptoms of chest discomfort. For some time she has had symptoms of left subscapular pain. However, today she began have pain in the left axilla, under the left breast and deep in the left chest. She did not describe a positional component but there is more discomfort with deep inspiration. No breathing difficulty at rest. No coughing. Patient denies symptoms of palpitation. No no lower extremity edema. Some ambulation today with physical therapy. Allergies Allergy/AdvReac Type Severity Reaction Status Date / Time lisinopril AdvReac Intermediate Cough Verified 11/07/22 16:22 Home Medications Medication Instructions Recorded Confirmed Type pregabalin 150 mg capsule 150 mg PO BID #60 caps 04/02/22 11/07/22 Rx meclizine 25 mg tablet 25 mg PO Q6H PRN dizziness #60 tabs 04/30/22 11/07/22 Rx ondansetron HCl 4 mg tablet 4 mg PO Q8H PRN nausea and 10/14/22 11/07/22 Rx vomiting #30 tabs pantoprazole 40 mg granules 40 mg PO BID 10/14/22 11/07/22 History delayed-release for susp in packet amlodipine 10 mg tablet 5 mg PO QAM 11/06/22 11/07/22 History magnesium oxide 500 mg tablet 500 mg PO QAM 11/06/22 11/07/22 History venlafaxine 75 mg tablet 75 mg PO QAM 11/06/22 11/07/22 History dexamethasone 2 mg tablet 2 mg PO DAILY 11/07/22 11/07/22 History lorazepam 0.5 mg tablet 0.5 - 1 mg PO Q8H PRN anxiety 11/07/22 11/07/22 History Patient History Medical History Advanced care planning/counseling discussion Ambulatory dysfunction Anemia Anxiety Arthritis Bilat Knees & lower back Chronic kidney disease, stage 3 (moderate) Chronic steroid use Depression Esophageal spasm Esophageal stenosis Esophageal ulcer GERD (gastroesophageal reflux disease) H/O idiopathic thrombocytopenic purpura (09/2020) treated w/ steroids History of blood transfusion Hypercholesterolemia Hypertension Hypomagnesemia Medical marijuana use patient has not used since march 2021 Palliative care encounter Pancytopenia 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) Renal insufficiency Restless leg syndrome Small cell lung cancer (04/21/20) chemo finished in Sep 2020 Symptomatic anemia Surgical History H/O arthroscopic knee surgery 1998 RIGHT/ 2010 LEFT H/O tubal ligation 1991 H/O: section x2 1987 & 1982 History of bronchoscopy (04/21/20) 04/21/2020 - with positive biopsy History of esophagogastroduodenoscopy (EGD) History of excision of pilonidal cyst 1987 History of open reduction and internal fixation (ORIF) procedure (07/2020) L ankle secondary to fracture History of tooth extraction molars Port-A-Cath in place (05/25/20) Insertion of Mediport Left Subclavian with Fluoroscopy Dr. Ramos 05/25/2020 S/P carpal tunnel release 1989's RT / 2014 LEFT S/P tonsillectomy Age 4 Family History Mother , Passed age 64 of pancreatic cancer Cancer Hypertension Father Hearing loss Grandmother (Maternal) , Passed age 79 of Stomach Cancer No problems noted. Uncle , Passed in 80's of Colorectal Cancer No problems noted. Brother No problems noted. Brother No problems noted. Sister No problems noted. Grandfather (Maternal) , Passed age 89 of Bladder Cancer No problems noted. Son No problems noted. Daughter Breast cancer Grandmother Cancer Grandfather Cancer Other No family history of adverse response to anesthesia No family history of allergies No family history of bleeding disorder Denies family history of Ovarian cancer Heart disease Lung cancer Asthma Social History Smoking Status: Former smoker Tobacco Type: Cigarettes Age Started Using Tobacco: 20; Age Quit Using Tobacco: 60; packs per day: 1; Cigarettes Per Day: 1 pack; Second Hand Exposure: No; Hx Alcohol Use: No Hx Substance Use: No Preferred Language: Liberian Communication Ability: Effective Visual Impairment: No Limitations Hearing Ability: Normal Digital Marketing Executive Required: No Beliefs That Will Affect Care: None marital status: Current Living Situation: Spouse Current Living Situation Comment: Lives with Stefan in 1 story house, [place] [facility] current occupational status: employed 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 Some difficulty swallowing certain foods. Pain with swallowing currently. Physical Exam Physical Exam: She is alert and oriented x3. Somewhat forgetful at times. Ill appearing. Mo od affect appear normal. She answered all questions appropriately. HEENT: Sclerae are anicteric. Pupils are equal and reactive to light and accommodation. Extraocular movements were intact. Neuro: Cranial nerves intact Neck: No carotid bruits. Lungs: Reduced breath sounds in the left lung. Some splinting with deep inspiration. No expiratory wheezing. Cardiac: The rhythm was regular. S1 and S2 were normal. There are no murmurs on examination. The PMI was not markedly displaced on palpation. Extremities: Patient has bilateral radial pulses that are equal in intensity. There is no evidence cyanosis or clubbing. There was no evidence of significant peripheral edema bilaterally. Skin: There are no rashes noted on examination today. Results & Data ([facility]) Vital Signs (Past 12 Hours) Vital Signs Temp Pulse Resp BP BP Pulse Ox O2 Del Method 11/11/22 16:02 36.5 C 88 18 119/76 94 Nasal Cannula 11/11/22 07:10 Nasal Cannula 11/11/22 07:10 36.5 C 89 18 131/76 92 Nasal Cannula O2 Flow Rate 11/11/22 16:02 4 11/11/22 07:10 4 11/11/22 07:10 4 Laboratory Results Abnormal Lab Results 11/11/22 05:54 Sodium 136 Potassium 5.1 D Chloride 103 Carbon Dioxide 27 Anion Gap 6 BUN 35 H Creatinine 1.32 H Est Cr Clr Drug Dosing 41.6 Est GFR ( Amer) 50.7 Est GFR (Non-Af Amer) 43.7 BUN/Creatinine Ratio 26.5 H Glucose 125 H Calcium 9.3 Diagnostic Findings Echocardiogram performed on 11/08/2022 and 11/11/2022 both demonstrated a pericardial effusion. The effusion appears to have increased in size but no evidence of hemodynamic compromise. Chest CTA performed on 11/07/2022 revealed pericardial effusion and left pleural effusion. Possible postobstructive pneumonia and cavitary consolidative focus in the left lingula. PG Care Time/CCT Total # of Minutes Spent Total Time Spent with Patient: Total time spent is greater than 50% in coordination of care (as documented) at patient's floor/unit and/or counseling patient: Coding Level of Care Code INP/OBS CONSULT LVL 4, 60 MIN Diagnoses Pericardial effusion I31.39 Chest pain R07.9 Chest pain type: unspecified (2) Chest pain Chest pain type: unspecified Qualified Code(s): R07.9 - Chest pain, unspecified
--- NOTE | 2022-11-11 16:37 | Infectious Disease Consult ---
Date of Consultation November 11, 2022 Assessment & Plan (1) PNA (pneumonia): #PNA -evidence of post obstructive pneumonitis with likely new cavitary PNA noted on CT chest -clinically, pt with L sided shoulder/posterior scapula pain and new O2 requirements. No significant cough- nonproductive per pt and spouse-pt did not cough at all during extended visit. No fever- but on chronic steroids. -11/07 Bcxs NGTD -in setting of immunocompromise and SCLC with brain metastases, relapsed despite chemo and XRT complicated by esophageal stricture requiring dilation and ongoing risk of aspiration. Pt also on chronic steroids. -pt with prior multiple negative skin tests for TB- unlikely to be TB. Pt on chronic steroids but PJP less likely. In setting of immunocompromise and lung ca, non-TB mycobacteria possible as well as fungal etiologies, but post- obstructive bacterial etiologies, including in setting of aspiration risk, should first be covered in absence of cultures. -pt initially on cefepime, changed to zosyn 11/11- agree with zosyn for additional anaerobic coverage, renally dose adjusted -per pt and her spouse, she continues to have new O2 requirements and shoulder/posterior scapula pain that is improved only due to increased pain medications #JOSE ANTONIO- cr stable Plan Recommend: Zosyn 4.5 g IV q8 (renal dose adjusted) x 7 days for empiric treatment of bacterial causes of post-obstructive and aspiration PNA. If patient does not improve clinically, which for her, would likely include improved oxygenation requirements, given recent onset of O2 requirements, would consider bronchoscopy with BAL bacterial, mycobacterial and AFB cultures for further workup, given absence of productive cough, provided that this procedure is considered consistent with goals of care. Please page with any questions. Maribel Whitt M.D. [facility] Pager [phone] Consultation Information Consultation was provided via telemedicine using two-way real-time interactive telecommunication between the patient and the telemedicine provider. For the duration of the visit, the provider was performing the assessment from a different facility than the patient. This includesuse of bluetooth stethoscope forauscultationperformed by the telepresenter that the telemedicine provider can hear if described in the physical exam. Credit Rating Checker contact information: Please call ID Connect Call Center . (Phone Number For Physician Use Only) After establishing a telemedicine visit, patient was: Patient was verified with two unique identifiers, Patient/authorized rep acknowledged consent and understanding and Gave permission to continue telehealth session Time Spent with Patient: Initial => 55 min History of Present Illness Attending Physician: Tito Banegas MD History of Present Illness ID consult requested for possible cavitary pneumonia in this 62-year-old female, past medical history of small cell lung cancer, with brain metastases, status post 6 cycles of etoposide/carboplatinum with concurrent thoracic radiation completed in September 2020, followed by prophylactic whole brain irradiation completed November 2020, relapsed with further progression despite tx, seen by [facility] and started on bevacizumab 06/27/2022, last dose bevacizumab on 10/25/2022, recurrent esophageal stricture, with periodic dilation, planned for 11/07/2022, who presented to the ED on 11/07/2022 with pain in her left shoulder and posterior chest. She also had nausea and diarrhea that day as well as fatigue. In the ED, temperature was 36.7, heart rate 83, respiratory rate 16, O2 saturation 92% on room air, blood pressure 119/84. Admission labs significant for WBC 5.73, 79.6% neutrophils, 6% immature granulocytes, hemoglobin 11.4, platelets 71, D-dimer 2610, creatinine 1.55, negative COVID, procalcitonin 0.17. Portable chest x-ray showed moderate left pleural effusion with possible left retrocardiac opacity compatible with atelectasis with or without superimposed aspiration/pneumonia. CT abdomen pelvis with IV contrast showed no acute abnormalities with redemonstration of cholelithiasis without evidence of cholecystitis. CTA showed no pulmonary emboli, increased pericardial effusion with new trace left pleural effusion, left upper and lower lobe lesions appear similar to 10/14 and progressive left upper and left lower lobe opacities which may represent postobstructive pneumonitis with a new centrally cavitary consolidative focus within the lingula measuring 2.8 cm favoring cavitary pneumonia although follow-up was recommended to exclude malignancy. TTE with normal LV size and EF 55-60%. Patient was initially placed on cefepime, this was changed to Zosyn 11/11. Patient is currently on Zosyn. 11/07 blood cultures are no growth to date. Prior cxs in EMR reviewed. Patient with E. coli in urine culture from 2021 which was mnea susceptible. Patient has been seen by oncology and palliative care- decision re: options for tx in process. Pt and at bedside provide history. Pt was born in [place], [place]. Only travel outside [place] was to [place], [place], [place]. Last [place] trip 2019. More recently, traveled to [place], and [place] . Have been to [facility] to see family. Also travel to [facility], [facility]. 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 No prior PNA. No abx recently. Pt reports she does choke with swallowing although no known aspiration PNA previously. No fever. She has felt alternating cold with feeling hot for a while- longer than several weeks. She has very little cough- nonproductive. 1 dog, no other animal exposures. No significant exposure to construction sites. Had abd pain prior to admission- now resolved. L shoulder and shoulder blade pain still present. Her states that she has chronic SOB/wheezing (since dx) which was at baseline other than briefly worse on day of admission. She does not require O2 at home. She has been on steroids for a while, but several weeks ago, her dexamethasone dose was increased to 4mg with improvement in her weakness and nausea. Recently steroid dose reduced due to thrush, and she felt weaker, so last week dexamethasone increased back to 4 mg. No vomiting or abd pain currently. She did c/o abd pain for several days prior to admission. Had diarrhea today after several days without BM- on Metamucil. No dramatic difference in her shoulder/posterior chest pain since admission- she has been on pain medications. She is noted to be more confused by her and started requiring O2 after admission. Patient remains afebrile. She is on 3-4 O2 NC. WBC stable. Creatinine stable at 1.32. Allergies Allergy/AdvReac Type Severity Reaction Status Date / Time lisinopril AdvReac Intermediate Cough Verified 11/07/22 16:22 Home Medications Medication Instructions Recorded Confirmed Type pregabalin 150 mg capsule 150 mg PO BID #60 caps 04/02/22 11/07/22 Rx meclizine 25 mg tablet 25 mg PO Q6H PRN dizziness #60 tabs 04/30/22 11/07/22 Rx ondansetron HCl 4 mg tablet 4 mg PO Q8H PRN nausea and 10/14/22 11/07/22 Rx vomiting #30 tabs pantoprazole 40 mg granules 40 mg PO BID 10/14/22 11/07/22 History delayed-release for susp in packet amlodipine 10 mg tablet 5 mg PO QAM 11/06/22 11/07/22 History magnesium oxide 500 mg tablet 500 mg PO QAM 11/06/22 11/07/22 History venlafaxine 75 mg tablet 75 mg PO QAM 11/06/22 11/07/22 History dexamethasone 2 mg tablet 2 mg PO DAILY 11/07/22 11/07/22 History lorazepam 0.5 mg tablet 0.5 - 1 mg PO Q8H PRN anxiety 11/07/22 11/07/22 History Patient History Medical History Advanced care planning/counseling discussion Ambulatory dysfunction Anemia Anxiety Arthritis Bilat Knees & lower back Chronic kidney disease, stage 3 (moderate) Chronic steroid use Depression Esophageal spasm Esophageal stenosis Esophageal ulcer GERD (gastroesophageal reflux disease) H/O idiopathic thrombocytopenic purpura (09/2020) treated w/ steroids History of blood transfusion Hypercholesterolemia Hypertension Hypomagnesemia Medical marijuana use patient has not used since march 2021 Palliative care encounter Pancytopenia 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) Renal insufficiency Restless leg syndrome Small cell lung cancer (04/21/20) chemo finished in Sep 2020 Symptomatic anemia Surgical History H/O arthroscopic knee surgery 1998 RIGHT/ 2010 LEFT H/O tubal ligation 1991 H/O: section x2 1987 & 1982 History of bronchoscopy (04/21/20) 04/21/2020 - with positive biopsy History of esophagogastroduodenoscopy (EGD) History of excision of pilonidal cyst 1987 History of open reduction and internal fixation (ORIF) procedure (07/2020) L ankle secondary to fracture History of tooth extraction molars Port-A-Cath in place (05/25/20) Insertion of Mediport Left Subclavian with Fluoroscopy Dr. Ramos 05/25/2020 S/P carpal tunnel release 1990's RT / 2015 LEFT S/P tonsillectomy Age 4 Family History Mother , Passed age 64 of pancreatic cancer Cancer Hypertension Father Hearing loss Grandmother (Maternal) , Passed age 79 of Stomach Cancer No problems noted. Uncle , Passed in 80's of Colorectal Cancer No problems noted. Brother No problems noted. Brother No problems noted. Sister No problems noted. Grandfather (Maternal) , Passed age 89 of Bladder Cancer No problems noted. Son No problems noted. Daughter Breast cancer Grandmother Cancer Grandfather Cancer Other No family history of adverse response to anesthesia No family history of allergies No family history of bleeding disorder Denies family history of Ovarian cancer Heart disease Lung cancer Asthma Social History Smoking Status: Former smoker Tobacco Type: Cigarettes Age Started Using Tobacco: 20; Age Quit Using Tobacco: 60; packs per day: 1; Cigarettes Per Day: 1 pack; Second Hand Exposure: No; Hx Alcohol Use: No Hx Substance Use: No Preferred Language: Maori Communication Ability: Effective Visual Impairment: No Limitations Hearing Ability: Normal Table Worker Packager Required: No Beliefs That Will Affect Care: None marital status: Current Living Situation: Spouse Current Living Situation Comment: Lives with Stefan in 1 story house, level entry in back current occupational status: employed 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 How many Children do You have: 0 Other Information That Helps Us Care for You: No Feels Safe at Home: Yes Safety Concerns: Feels Safe At This Time Childhood Exposure to Second-Hand Smoke: Yes caffeine: Yes (ice tea) during the past year weight has: remained stable Dental Care, Regularly: Yes Physical Activity Frequency: Does not Exercise Seatbelt Use: always Sunscreen Use: No Assistive Devices: Cane, Walker and Wheelchair Assistive Devices Comment: to bring in glasses tomorrow Physical Exam Physical Exam: PE: Gen: Awake, alert, she is able to answer questions appropriately, although mostly with short answers, and appears to follow conversation. She appears mildly confused at time with more complicated questions. Cushingoid. HEENT: anicteric, on 3 L O2 NC, mmm, no thrush Chest: L port without erythema Lungs: crackles on L >R, scattered expiratory wheezing Abd: Soft, NT/ND Extr: no c/c Trace b/l pedal edema Skin: L peripheral IV ok Results & Data ([place]) Vital Signs (Past 12 Hours) Vital Signs Temp Pulse Resp BP BP Pulse Ox O2 Del Method 11/11/22 16:02 36.5 C 88 18 119/76 94 Nasal Cannula 11/11/22 07:10 Nasal Cannula 11/11/22 07:10 36.5 C 89 18 131/76 92 Nasal Cannula O2 Flow Rate 11/11/22 16:02 4 11/11/22 07:10 4 11/11/22 07:10 4 Laboratory Results 11/11/22 05:54 Sodium 136 Potassium 5.1 D Chloride 103 Carbon Dioxide 27 Anion Gap 6 BUN 35 H Creatinine 1.32 H Est Cr Clr Drug Dosing 41.6 Est GFR ( Amer) 50.7 Est GFR (Non-Af Amer) 43.7 BUN/Creatinine Ratio 26.5 H Glucose 125 H Calcium 9.3 Medications Administered Current Medications Acetaminophen (Acetaminophen 325 Mg Tab) 650 mg PO Q4H PRN PRN Reason: pain/fever Stop: 12/07/22 18:15 Last Admin: 11/10/22 09:35 Dose: 650 mg Albuterol (Albut/Ipratrop 3mg/0.5mg Neb 3 Ml Vial) 3 ml NEB Q4R PRN; Protocol PRN Reason: Wheezing Stop: 12/10/22 14:59 Last Admin: 11/10/22 16:27 Dose: 3 ml Amlodipine Besylate (Amlodipine Besylate 5 Mg Tab) 5 mg PO QAM [facility]ANE[facility] Stop: 12/08/22 08:59 Last Admin: 11/11/22 08:29 Dose: 5 mg Dexamethasone (Dexamethasone 4 Mg Tab) 4 mg PO DAILY [facility] Stop: 12/08/22 08:59 Last Admin: 11/11/22 08:29 Dose: 4 mg Heparin Sodium (Porcine) (Heparin Sod 5,000 Unit/0.5 Ml Vial) 5,000 units SQ Q8 [facility]ANE[facility] Stop: 12/08/22 13:59 Last Admin: 11/11/22 15:54 Dose: 5,000 units Piperacillin Sod/Tazobactam (Sod 3.375 gm/ Dextrose) 115 mls @ 28.75 mls/hr IV Q8H DELANEY; Protocol Stop: 11/18/22 15:59 Last Admin: 11/11/22 15:54 Dose: 28.8 mls/hr Lorazepam (Lorazepam 0.5 Mg Tab) 0.5 mg PO HS [facility] Stop: 12/07/22 20:59 Last Admin: 11/10/22 19:38 Dose: 0.5 mg Magnesium Oxide (Magnesium Oxide 400 Mg Tab) 400 mg PO QAM [facility] Stop: 12/08/22 08:59 Last Admin: 11/11/22 08:29 Dose: 400 mg Meclizine HCl (Meclizine Hcl 25 Mg Tab) 25 mg PO Q6H PRN PRN Reason: dizziness Stop: 12/07/22 18:11 Ondansetron HCl (Ondansetron 4 Mg Od Tab) 4 mg PO Q8H PRN PRN Reason: Nausea And Vomiting Stop: 12/07/22 18:49 Pantoprazole Sodium (Pantoprazole 40 Mg Tab) 40 mg PO BID [facility]; Protocol Stop: 12/07/22 20:59 Last Admin: 11/11/22 08:29 Dose: 40 mg Polyethylene Glycol (Polyethylene (Miralax) 17 Gm Pack) 17 gm PO DAILY PRN PRN Reason: Constipation Stop: 12/10/22 08:57 Last Admin: 11/10/22 09:34 Dose: 17 gm Pregabalin (Pregabalin 150 Mg Cap) 150 mg PO BID [facility] Stop: 12/07/22 20:59 Last Admin: 11/11/22 08:29 Dose: 150 mg Tramadol HCl (Tramadol Hcl 50 Mg Tablet) 50 mg PO Q4H PRN PRN Reason: Pain Stop: 12/07/22 19:29 Last Admin: 11/11/22 18:24 Dose: 50 mg Venlafaxine HCl (Venlafaxine Hcl 37.5 Mg Tab) 75 mg PO QAM [facility] Stop: 12/08/22 08:59 Last Admin: 11/11/22 08:29 Dose: 75 mg
[2022-11-11] MEDS: LORazepam 0.5 MG TAB PO SCH (19:59)
[2022-11-12 06:09] LABS: Hematocrit (blood only) 28.8 % (37.0-47.0); Hemoglobin 10.1 g/dl (12.0-16.0); Mean Corpuscular Hemoglobin 31.1 pg (25.0-34.0); Mean Corpuscular Hgb Conc 35.1 g/dL (32.0-36.0); Mean Corpuscular Volume 88.6 fL (80.0-100.0); Mean Platelet Volume 11.5 fL (9.4-12.4); Nucleated RBC # (auto) 0.15 K/uL (0-0.12); Platelet Count 79 K/uL (130-400); RDW Coefficient of Variation 16.5 % (11.5-14.5); RDW Standard Deviation 52.8 fL (36.4-46.3); Red Blood Count 3.25 M/uL (4.20-5.40); White Blood Count 7.52 K/ul (4.8-10.8)
[2022-11-12] MEDS: HEPARIN SOD 5,000 UNIT/0.5 ML VIAL SQ SCH ×3 (06:12→20:40)
[2022-11-12 06:30] LABS: BUN Creatinine Ratio 29.1 (10-20); Calcium 9.4 mg/dl (8.5-10.1); Creatinine Clr Calc Pharmacy 36.3 ml/min; Est GFR (African American) 43.1 ml/min; Est GFR (Non-African American) 37.2 ml/min; Potassium 4.2 mmol/L (3.5-5.1)
[2022-11-12] MEDS: MAGNESIUM OXIDE 400 MG TAB PO SCH (08:33)
[2022-11-12] MEDS: amLODIPine BESYLATE 5 MG TAB PO SCH (08:33)
[2022-11-12] MEDS: PANTOprazole 40 MG TAB PO SCH ×2 (08:34→20:39)
[2022-11-12] MEDS: dexAMETHasone 4 MG TAB PO SCH (08:34)
[2022-11-12] MEDS: VENLAFAXINE HCL 37.5 MG TAB PO SCH (08:35)
[2022-11-12] MEDS: PIPERACILLIN/TAZOBACTAM 3.375 GM CI (over 4 hrs) IV SCH (08:35)
[2022-11-12] MEDS: PREGABALIN 150 MG CAP PO SCH ×2 (08:48→20:39)
--- NOTE | 2022-11-12 13:00 | Hospitalist Progress Note ---
Date of Service November 12, 2022 Assessment & Plan (1) Small cell lung cancer: Plan: Weakness, diarrhea in a patient admitted with small cell lung cancer. Most likley multifactorial Oncology on consult, no evidence of disease progression, so no need for additional chemo for now (2) Acute respiratory failure with hypoxia: Plan: Likely secondary to lung cancer and/or pneumonia Patient not on oxygen at home requiring about 3-4 L of oxygen through nasal canula continue treatment of PNA wean as tolerated (3) PNA (pneumonia): Plan: CT shows evidence of obstructive and possible cavitary PNA Now on Zosyn, today is day 2 of a 7 day course consult ID, appreciate recs (4) Pericardial effusion: Plan: ECHO shows moderate sized effusion, no evidence of tamponade Cardiology appreciated, no need for any interventions (5) 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: Plan: Patient had radiation in the past. Stable (6) Depression: Plan: resume home meds (7) Esophageal stenosis: Plan: GI on consult Plan is to reschedule her osephageal dilation in 2 weks outpatient continue soft diet (8) Shoulder pain: Plan: Placed on tramadol. will monitor. Plan DVT: heparin Admission and Anticipated Discharge Date Admission Date: November 07, 2022 Subjective patient seen and examined, feels overall better Review of Systems Review of Systems: All systems reviewed are negative, apart from the ones contained in the history. Physical Exam Physical Exam: The patient is awake, alert and oriented 3, well developed and well nourished, normocephalic and atraumatic, lying in bed and in no acute distress. HEENT--PERRL, EOMI, mucous membranes and oropharynx mildly dry Neck--supple. No JVD. No bruits. Thyroid normal, trachea midline, no adenopathy. Heart--normal S1 and S2. No murmurs, rubs or gallops. Lungs--clear bilaterally, no respiratory distress, no accessory muscle use. Abdomen--normal bowel sounds and soft. Mild epigastric and left sided abdominal pain Extremities--no cyanosis or clubbing. No edema. Dermatologic--normal skin turgor, normal color, no abnormal lymph nodes, no rash. Neurologic--cranial nerves II through XII grossly intact. Rheumatologic--normal range of motion. Psychiatric--normal affect. Results & Data Results & Data ([facility]) Vital Signs (Past 12 Hours) Vital Signs Temp Pulse Resp BP Pulse Ox O2 Del Method O2 Flow Rate 11/12/22 07:40 Nasal Cannula 4 11/12/22 07:33 97.3 F L 76 16 144/82 H 98 Nasal Cannula 4 PG Care Time/CCT Total # of Minutes Spent Total Time Spent with Patient: Total time spent is greater than 50% in coordination of care (as documented) at patient's floor/unit and/or counseling patient: Coding Level of Care Code 79328 SUB INP/OBS CARE 2/35MIN Diagnoses Small cell lung cancer C34.90 Acute respiratory failure with hypoxia J96.01 PNA (pneumonia) J18.9 Pericardial effusion I31.39 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
[2022-11-12] MEDS: PIPERACILLIN/TAZOBACTAM 4.5 GM CI (over 4 hours) IV SCH ×2 (16:11→23:34)
[2022-11-12] MEDS: traMADol HCL 50 MG TABLET PO PRN (16:52)
[2022-11-12] MEDS: LORazepam 0.5 MG TAB PO SCH (20:39)
[2022-11-13] MEDS: HEPARIN SOD 5,000 UNIT/0.5 ML VIAL SQ SCH ×3 (05:20→21:36)
[2022-11-13 07:03] LABS: Hematocrit (blood only) 28.3 % (37.0-47.0); Mean Corpuscular Hemoglobin 31.4 pg (25.0-34.0); Mean Corpuscular Hgb Conc 35.3 g/dL (32.0-36.0); Mean Platelet Volume 11.8 fL (9.4-12.4); Nucleated RBC # (auto) 0.17 K/uL (0-0.12); Nucleated RBC % (auto) 2.2 %; Platelet Count 96 K/uL (130-400); RDW Coefficient of Variation 16.4 % (11.5-14.5); RDW Standard Deviation 51.7 fL (36.4-46.3); Red Blood Count 3.18 M/uL (4.20-5.40); White Blood Count 7.73 K/ul (4.8-10.8)
[2022-11-13 07:21] LABS: BUN Creatinine Ratio 31.1 (10-20); Creatinine Clr Calc Pharmacy 36.3 ml/min; Est GFR (African American) 43.1 ml/min; Est GFR (Non-African American) 37.2 ml/min; Potassium 3.6 mmol/L (3.5-5.1)
[2022-11-13] MEDS: traMADol HCL 50 MG TABLET PO PRN ×4 (08:11→22:22)
[2022-11-13] MEDS: PIPERACILLIN/TAZOBACTAM 4.5 GM CI (over 4 hours) IV SCH ×3 (08:12→22:25)
[2022-11-13] MEDS: dexAMETHasone 4 MG TAB PO SCH (09:07)
[2022-11-13] MEDS: PANTOprazole 40 MG TAB PO SCH ×2 (09:08→21:36)
[2022-11-13] MEDS: MAGNESIUM OXIDE 400 MG TAB PO SCH (09:08)
[2022-11-13] MEDS: VENLAFAXINE HCL 37.5 MG TAB PO SCH (09:09)
[2022-11-13] MEDS: amLODIPine BESYLATE 5 MG TAB PO SCH (09:09)
[2022-11-13] MEDS: PREGABALIN 150 MG CAP PO SCH ×2 (09:11→21:36)
--- NOTE | 2022-11-13 09:44 | Infectious Disease Progress Nt ---
Date of Service November 13, 2022 Assessment & Plan (1) PNA (pneumonia): Plan: #PNA -evidence of post obstructive pneumonitis with likely new cavitary PNA noted on CT chest -clinically, pt with L sided shoulder/posterior scapula pain and new O2 requirements. No significant cough- nonproductive per pt and spouse-pt did not cough at all during extended visit. No fever- but on chronic steroids. -11/07 Bcxs negative -in setting of immunocompromise and SCLC with brain metastases, relapsed despite chemo and XRT complicated by esophageal stricture requiring dilation and ongoing risk of aspiration. Pt also on chronic steroids. -epidemiological risk factors reviewed with pt and spouse at time of consult. Pt worked in [place] but had prior multiple/annual negative skin tests for TB- unlikely to be TB. Pt on chronic steroids but PJP less likely. In setting of im munocompromise and lung ca, non-TB mycobacteria possible as well as fungal etiologies, nocardia, but common post-obstructive bacterial etiologies, including in setting of aspiration risk, should first be covered in absence of cultures. -pt initially on cefepime, changed to zosyn 11/11- agree with zosyn for additional anaerobic coverage, renally dose adjusted -per pt and her spouse, her main issues this admission are new O2 requirements and shoulder/posterior scapula pain #JOSE ANTONIO- cr stable ~1.5 Plan Recommend: Pt subjectively feels better, and this is noted by hospitalist as well in discussion at bedside. Would continue Zosyn 4.5 g IV q8 (renal dose adjusted) for now for empiric treatment of typical bacterial causes of post-obstructive and aspiration PNA. If patient improves, ok for consideration to transition to Augmentin 875mg PO q12 x 10 days with repeat lung imaging afterwards. Will send histo urine ag, serum cryptococcal ag, serum aspergillus antigen, serum b-d-glucan, and IGRA- TB test. If no significant clinical improvement, recommend bronchoscopy with BAL bacterial, mycobacterial and AFB cultures, BAL aspergillus ag and b-d-glucan, BAL PJP PCR, and biopsy if possible of cavitary lesion, for further workup as well as MRI brain to assess for etiologies that cause cavitary lesions in lung and SIGNAL TOWER DIRECTOR. Please page with any questions. Maribel Whitt M.D. [facility] [employer] Pager [phone] Admission and Anticipated Discharge Date Admission Date: November 07, 2022 Subjective Subsequent visit was provided via telemedicine using two-way real-time interactive telecommunication between the patient and the telemedicine provider. For the duration of the visit, the provider was performing the assessment from a different facility than the patient. This includesuse of bluetooth stethoscope forauscultationperformed by the telepresenter that the telemedicine provider can hear if described in the physical exam. Chronometer Tester contact information: Please call [facility] Connect Call Center . (Phone Number For Physician Use Only) After establishing a telemedicine visit, patient was: Patient was verified with two unique identifiers, Patient/authorized rep acknowledged consent and understanding and Gave permission to continue telehealth session Time Spent with Patient: Subsequent => 25 min Pt is more conversant today. She reports 1 dry coughing episode today, says she usually coughs at night but no significant cough. Feels no significant change in SOB but L shoulder/posterior back pain has improved. Denies fever, chills, sweats, abd pain, diarrhea. Reports having BMs. Physical Exam Physical Exam: PE: Gen: Awake, alert, oriented x3, NAD. Cushingoid. HEENT: anicteric, on 4 L O2 NC, dry mm, no thrush Chest: L port without erythema or tenderness Lungs: crackles on L >R Abd: Soft, NT/ND Extr: no c/c/e Skin:peripheral IV ok Results & Data ([facility]) Vital Signs (Past 12 Hours) Vital Signs Temp Pulse Resp BP Pulse Ox O2 Del Method O2 Flow Rate 11/13/22 08:24 Nasal Cannula 4 11/13/22 07:54 36.2 C L 84 18 124/82 95 Nasal Cannula 4 Laboratory Results 11/07/22 23:07 Aerobic Blood Culture - Final Blood No growth in Aerobic bottle after 5 days. Anaerobic Blood Culture - Final No growth in Anaerobic bottle after 5 days. 11/07/22 16:34 Aerobic Blood Culture - Final Blood No growth in Aerobic bottle after 5 days. Anaerobic Blood Culture - Final No growth in Anaerobic bottle after 5 days. 11/13/22 11/13/22 05:57 05:57 WBC 7.73 RBC 3.18 L Hgb 10.0 L Hct 28.3 L MCV 89.0 MCH 31.4 MCHC 35.3 RDW Std Deviation 51.7 H RDW Coeff of Sebastián 16.4 H Plt Count 96 L MPV 11.8 Absolute Nucleated RBC 0.17 H Nucleated RBC % (auto) 2.2 Sodium 135 L Potassium 3.6 Chloride 102 Carbon Dioxide 25 Anion Gap 8 BUN 47 H Creatinine 1.51 H Est Cr Clr Drug Dosing 36.3 Est GFR ( Amer) 43.1 Est GFR (Non-Af Amer) 37.2 BUN/Creatinine Ratio 31.1 H Glucose 148 H Calcium 9.0 Medications Administered Current Medications Acetaminophen (Acetaminophen 325 Mg Tab) 650 mg PO Q4H PRN PRN Reason: pain/fever Stop: 12/07/22 18:15 Last Admin: 11/10/22 09:35 Dose: 650 mg Albuterol (Albut/Ipratrop 3mg/0.5mg Neb 3 Ml Vial) 3 ml NEB Q4R PRN; Protocol PRN Reason: Wheezing Stop: 12/10/22 14:59 Last Admin: 11/10/22 16:27 Dose: 3 ml Amlodipine Besylate (Amlodipine Besylate 5 Mg Tab) 5 mg PO QAM [facility] Stop: 12/08/22 08:59 Last Admin: 11/13/22 09:09 Dose: 5 mg Dexamethasone (Dexamethasone 4 Mg Tab) 4 mg PO DAILY [facility] Stop: 12/08/22 08:59 Last Admin: 11/13/22 09:07 Dose: 4 mg Heparin Sodium (Porcine) (Heparin Sod 5,000 Unit/0.5 Ml Vial) 5,000 units SQ Q8 [facility] Stop: 12/08/22 13:59 Last Admin: 11/13/22 05:20 Dose: 5,000 units Piperacillin Sod/Tazobactam (Sod 4.5 gm/ Dextrose) 120 mls @ 30 mls/hr IV Q8H [facility]; Protocol Stop: 11/18/22 15:59 Last Admin: 11/13/22 08:12 Dose: 30 mls/hr Lorazepam (Lorazepam 0.5 Mg Tab) 0.5 mg PO HS [facility] Stop: 12/07/22 20:59 Last Admin: 11/12/22 20:39 Dose: 0.5 mg Magnesium Oxide (Magnesium Oxide 400 Mg Tab) 400 mg PO QAM [facility] Stop: 12/08/22 08:59 Last Admin: 11/13/22 09:08 Dose: 400 mg Meclizine HCl (Meclizine Hcl 25 Mg Tab) 25 mg PO Q6H PRN PRN Reason: dizziness Stop: 12/07/22 18:11 Ondansetron HCl (Ondansetron 4 Mg Od Tab) 4 mg PO Q8H PRN PRN Reason: Nausea And Vomiting Stop: 12/07/22 18:49 Pantoprazole Sodium (Pantoprazole 40 Mg Tab) 40 mg PO BID [facility]; Protocol Stop: 12/07/22 20:59 Last Admin: 11/13/22 09:08 Dose: 40 mg Polyethylene Glycol (Polyethylene (Miralax) 17 Gm Pack) 17 gm PO DAILY PRN PRN Reason: Constipation Stop: 12/10/22 08:57 Last Admin: 11/10/22 09:34 Dose: 17 gm Pregabalin (Pregabalin 150 Mg Cap) 150 mg PO BID [facility] Stop: 12/07/22 20:59 Last Admin: 11/13/22 09:11 Dose: 150 mg Tramadol HCl (Tramadol Hcl 50 Mg Tablet) 50 mg PO Q4H PRN PRN Reason: Pain Stop: 12/07/22 19:29 Last Admin: 11/13/22 08:11 Dose: 50 mg Venlafaxine HCl (Venlafaxine Hcl 37.5 Mg Tab) 75 mg PO QAM [facility] Stop: 12/08/22 08:59 Last Admin: 11/13/22 09:09 Dose: 75 mg
--- NOTE | 2022-11-13 13:14 | Hospitalist Progress Note ---
Date of Service November 13, 2022 Assessment & Plan (1) PNA (pneumonia): Plan: CT shows evidence of obstructive and possible cavitary PNA Now on Zosyn, today is day 3 of a 7 day course Will also obtain crypto antigen, histo ag, aspergillus, ag, b-d glucan, Quantiferon gold consult ID, appreciate recs Patient clinically much improved (2) Small cell lung cancer: Plan: Weakness, in a patient admitted with small cell lung cancer. 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 Stable (6) Depression: Plan: resume home meds (7) Esophageal stenosis: Plan: GI on consult Plan is to reschedule her osephageal dilation in 2 weks outpatient continue soft diet (8) Shoulder pain: Plan: Placed on tramadol. will monitor. Plan continue hospitalization DVT: heparin Admission and Anticipated Discharge Date Admission Date: November 07, 2022 Subjective patient seen and examined, feels overall better Review of Systems Review of Systems: All systems reviewed are negative, apart from the ones contained in the history. Physical Exam Physical Exam: The patient is awake, alert and oriented 3, well developed and well nourished, normocephalic and atraumatic, lying in bed and in no acute distress. HEENT--PERRL, EOMI, mucous membranes and oropharynx mildly dry Neck--supple. No JVD. No bruits. Thyroid normal, trachea midline, no adenopathy. Heart--normal S1 and S2. No murmurs, rubs or gallops. Lungs--clear bilaterally, no respiratory distress, no accessory muscle use. Abdomen--normal bowel sounds and soft. Mild epigastric and left sided abdominal pain Extremities--no cyanosis or clubbing. No edema. Dermatologic--normal skin turgor, normal color, no abnormal lymph nodes, no rash. Neurologic--cranial nerves II through XII grossly intact. Rheumatologic--normal range of motion. Psychiatric--normal affect. Results & Data Results & Data ([facility]) Vital Signs (Past 12 Hours) Vital Signs Temp Pulse Resp BP Pulse Ox O2 Del Method O2 Flow Rate 11/13/22 10:04 95 Nasal Cannula 2 11/13/22 08:24 Nasal Cannula 4 11/13/22 07:54 97.2 F L 84 18 124/82 95 Nasal Cannula 4 PG Care Time/CCT Total # of Minutes Spent Total Time Spent with Patient: Total time spent is greater than 50% in coordination of care (as documented) at patient's floor/unit and/or counseling patient: Coding Level of Care Code 16720 SUB INP/OBS CARE 2/35MIN Diagnoses PNA (pneumonia) J18.9 Small cell lung cancer C34.90 Acute respiratory failure with hypoxia J96.01 Pericardial effusion I31.39 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
[2022-11-13] MEDS: LIDOCAINE 5% 1 PATCH TD SCH (14:38)
[2022-11-13] MEDS: LORazepam 0.5 MG TAB PO SCH (21:36)
[2022-11-14] MEDS: HEPARIN SOD 5,000 UNIT/0.5 ML VIAL SQ SCH ×3 (05:48→22:10)
[2022-11-14] MEDS: amLODIPine BESYLATE 5 MG TAB PO SCH (08:26)
[2022-11-14] MEDS: PANTOprazole 40 MG TAB PO SCH ×2 (08:26→22:09)
[2022-11-14] MEDS: dexAMETHasone 4 MG TAB PO SCH (08:27)
[2022-11-14] MEDS: VENLAFAXINE HCL 37.5 MG TAB PO SCH (08:27)
[2022-11-14] MEDS: MAGNESIUM OXIDE 400 MG TAB PO SCH (08:27)
[2022-11-14] MEDS: LIDOCAINE 5% 1 PATCH TD SCH (08:28)
[2022-11-14] MEDS: PREGABALIN 150 MG CAP PO SCH ×2 (08:30→22:08)
[2022-11-14 09:08] LABS: Hematocrit (blood only) 30.9 % (37.0-47.0); Hemoglobin 10.7 g/dl (12.0-16.0); Mean Corpuscular Hemoglobin 31.2 pg (25.0-34.0); Mean Corpuscular Hgb Conc 34.6 g/dL (32.0-36.0); Mean Corpuscular Volume 90.1 fL (80.0-100.0); Mean Platelet Volume 11.4 fL (9.4-12.4); Nucleated RBC # (auto) 0.15 K/uL (0-0.12); Nucleated RBC % (auto) 1.7 %; Platelet Count 102 K/uL (130-400); RDW Coefficient of Variation 17.2 % (11.5-14.5); RDW Standard Deviation 54.3 fL (36.4-46.3); Red Blood Count 3.43 M/uL (4.20-5.40); White Blood Count 8.66 K/ul (4.8-10.8)
[2022-11-14] MEDS: PIPERACILLIN/TAZOBACTAM 4.5 GM CI (over 4 hours) IV SCH ×2 (09:19→15:57)
[2022-11-14] MEDS: traMADol HCL 50 MG TABLET PO PRN ×3 (09:21→22:06)
[2022-11-14 09:25] LABS: BUN Creatinine Ratio 26.5 (10-20); Calcium 9.4 mg/dl (8.5-10.1); Creatinine Clr Calc Pharmacy 35.4 ml/min; Est GFR (African American) 41.7 ml/min; Potassium 3.5 mmol/L (3.5-5.1)
--- NOTE | 2022-11-14 14:36 | Hospitalist Progress Note ---
Date of Service November 14, 2022 Assessment & Plan (1) PNA (pneumonia): Plan: CT shows evidence of obstructive and possible cavitary PNA Now on Zosyn, today is day 4 of a 7 day course crypto antigen, histo ag, aspergillus, ag, b-d glucan, Quantiferon gold all pending consult ID, appreciate recs Patient clinically much improved (2) Small cell lung cancer: Plan: Weakness, in a patient admitted with small cell lung cancer. 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 Stable (6) Depression: Plan: resume home meds (7) Esophageal stenosis: Plan: GI on consult Plan is to reschedule her osephageal dilation in 2 weks outpatient continue soft diet (8) Shoulder pain: Plan: Placed on tramadol. will monitor. Plan continue hospitalization DVT: heparin Admission and Anticipated Discharge Date Admission Date: November 07, 2022 Subjective patient seen and examined, feels overall better, sitting up in the chair Review of Systems Review of Systems: All systems reviewed are negative, apart from the ones contained in the history. Physical Exam Physical Exam: The patient is awake, alert and oriented 3, well developed and well nourished, normocephalic and atraumatic, lying in bed and in no acute distress. HEENT--PERRL, EOMI, mucous membranes and oropharynx mildly dry Neck--supple. No JVD. No bruits. Thyroid normal, trachea midline, no adenopathy. Heart--normal S1 and S2. No murmurs, rubs or gallops. Lungs--clear bilaterally, no respiratory distress, no accessory muscle use. Abdomen--normal bowel sounds and soft. Mild epigastric and left sided abdominal pain Extremities--no cyanosis or clubbing. No edema. Dermatologic--normal skin turgor, normal color, no abnormal lymph nodes, no rash. Neurologic--cranial nerves II through XII grossly intact. Rheumatologic--normal range of motion. Psychiatric--normal affect. Results & Data Results & Data [facility]) Vital Signs (Past 12 Hours) Vital Signs Temp Pulse Resp BP Pulse Ox O2 Del Method O2 Flow Rate 11/14/22 08:07 Nasal Cannula 2 11/14/22 07:46 97.3 F L 77 18 111/76 95 Nasal Cannula 2 PG Care Time/CCT Total # of Minutes Spent Total Time Spent with Patient: Total time spent is greater than 50% in coordination of care (as documented) at patient's floor/unit and/or counseling patient: Coding Level of Care Code 40613 SUB INP/OBS CARE 2/35MIN Diagnoses PNA (pneumonia) J18.9 Small cell lung cancer C34.90 Acute respiratory failure with hypoxia J96.01 Pericardial effusion I31.39 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
[2022-11-14] MEDS: LORazepam 0.5 MG TAB PO SCH (22:08)
[2022-11-15] MEDS: PIPERACILLIN/TAZOBACTAM 4.5 GM CI (over 4 hours) IV SCH ×4 (00:44→23:54)
[2022-11-15] MEDS: HEPARIN SOD 5,000 UNIT/0.5 ML VIAL SQ SCH ×3 (05:58→21:00)
[2022-11-15 08:02] LABS: Hematocrit (blood only) 28.2 % (37.0-47.0); Hemoglobin 9.7 g/dl (12.0-16.0); Mean Corpuscular Hemoglobin 31.2 pg (25.0-34.0); Mean Corpuscular Hgb Conc 34.4 g/dL (32.0-36.0); Mean Corpuscular Volume 90.7 fL (80.0-100.0); Mean Platelet Volume 11.9 fL (9.4-12.4); Nucleated RBC # (auto) 0.21 K/uL (0-0.12); Nucleated RBC % (auto) 1.9 %; Platelet Count 107 K/uL (130-400); RDW Coefficient of Variation 16.8 % (11.5-14.5); RDW Standard Deviation 54.5 fL (36.4-46.3); Red Blood Count 3.11 M/uL (4.20-5.40); White Blood Count 11.06 K/ul (4.8-10.8)
[2022-11-15 08:17] LABS: BUN Creatinine Ratio 28.8 (10-20); Calcium 8.8 mg/dl (8.5-10.1); Creatinine Clr Calc Pharmacy 39.5 ml/min; Est GFR (African American) 47.6 ml/min; Est GFR (Non-African American) 41.1 ml/min; Potassium 3.9 mmol/L (3.5-5.1)
[2022-11-15] MEDS: LIDOCAINE 5% 1 PATCH TD SCH (08:51)
[2022-11-15] MEDS: MAGNESIUM OXIDE 400 MG TAB PO SCH (08:53)
[2022-11-15] MEDS: dexAMETHasone 4 MG TAB PO SCH (08:53)
[2022-11-15] MEDS: PANTOprazole 40 MG TAB PO SCH ×2 (08:53→20:57)
[2022-11-15] MEDS: VENLAFAXINE HCL 37.5 MG TAB PO SCH (08:54)
[2022-11-15] MEDS: amLODIPine BESYLATE 5 MG TAB PO SCH (08:54)
[2022-11-15] MEDS: POLYETHYLENE (MIRALAX) 17 GM PACK PO PRN (08:57)
[2022-11-15] MEDS: PREGABALIN 150 MG CAP PO SCH ×2 (08:58→20:57)
--- NOTE | 2022-11-15 10:03 | Infectious Disease Progress Nt ---
Date of Service November 15, 2022 Assessment & Plan (1) PNA (pneumonia): Plan: #PNA -evidence of post obstructive pneumonitis with likely new cavitary PNA noted on CT chest -clinically, pt with L sided shoulder/posterior scapula pain and new O2 requirements. No significant cough- nonproductive per pt and spouse-pt did not cough at all during extended visit. No fever- but on chronic steroids. -11/07 Bcxs negative -in setting of immunocompromise and SCLC with brain metastases, relapsed despite chemo and XRT complicated by esophageal stricture requiring dilation and ongoing risk of aspiration. Pt also on chronic steroids. -epidemiological risk factors reviewed with pt and spouse at time of consult. Pt worked in [place] but had prior multiple/annual negative skin tests for TB- unlikely to be TB. Pt on chronic steroids but PJP less likely. In setting of im munocompromise and lung ca, non-TB mycobacteria possible as well as fungal etiologies, nocardia, but common post-obstructive bacterial etiologies, including in setting of aspiration risk, should first be covered in absence of cultures. - histo urine ag, serum cryptococcal ag, serum aspergillus antigen, serum b-d-glucan, and IGRA- TB test are pending -pt initially on cefepime, changed to zosyn 11/11- agree with zosyn for additional anaerobic coverage, renally dose adjusted #JOSE ANTONIO- cr stable ~1.5 Plan Recommend: Pt appears to be slowly improving. Would continue Zosyn 4.5 g IV q8 (renal dose adjusted) for now with plan for 7 day course for empiric treatment of typical bacterial causes of post-obstructive and aspiration PNA. If patient improves sufficiently for discharge, ok for consideration to transition to Augmentin 875mg PO q12 plus cipro 500mg PO q12 for total course 10 days with repeat lung imaging afterwards. EKG this admission without prolonged QTC. Histo urine ag, serum cryptococcal ag, serum aspergillus antigen, serum b-d-glucan, and IGRA- TB test pending. 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 Please page with any questions. Dr. Cox to take over service Friday. Maribel Whitt M.D. [facility] [employer] Pager [phone] Admission and Anticipated Discharge Date Admission Date: November 07, 2022 Subjective Subsequent visit was provided via telemedicine using two-way real-time interactive telecommunication between the patient and the telemedicine provider. For the duration of the visit, the provider was performing the assessment from a different facility than the patient. This includesuse of bluetooth stethoscope forauscultationperformed by the telepresenter that the telemedicine provider can hear if described in the physical exam. Assembly Instructions Writer contact information: Please call [facility] Call Center . (Phone Number For Physician Use Only) After establishing a telemedicine visit, patient was: Patient was verified with two unique identifiers, Patient/authorized rep acknowledged consent and understanding and Gave permission to continue telehealth session Time Spent with Patient: Subsequent => 25 min Pt reports SOB much improved- is fluctuating between 2-3 L- on 3L NC currently- has not been out of bed yet, says she is waiting for spouse. Same cough- mostly at night, dry. Denies fever, chills, abd pain and diarrhea. Physical Exam Physical Exam: PE: Gen: Awake, alert, NAD. Cushingoid. HEENT: anicteric, on 3 L O2 NC, dry mm, no thrush Chest: L port without erythema or tenderness Lungs: diminished BS, poor effort, no w/r/r appreciated Abd: Soft, NT/ND Extr: no c/c/e Skin:R peripheral IV ok Results & Data ([facility]) Vital Signs (Past 12 Hours) Vital Signs Temp Pulse Resp BP BP Pulse Ox O2 Del Method 11/15/22 08:25 Nasal Cannula 11/15/22 07:59 36.4 C L 74 18 132/74 97 Nasal Cannula 11/15/22 06:00 36.3 C L 75 18 136/79 96 Nasal Cannula 11/14/22 22:58 36.3 C L 80 15 134/75 92 Nasal Cannula O2 Flow Rate 11/15/22 08:25 3 11/15/22 07:59 2 11/15/22 06:00 3 11/14/22 22:58 3 Laboratory Results 11/15/22 11/15/22 07:08 07:08 WBC 11.06 H RBC 3.11 L Hgb 9.7 L Hct 28.2 L MCV 90.7 MCH 31.2 MCHC 34.4 RDW Std Deviation 54.5 H RDW Coeff of Sebastián 16.8 H Plt Count 107 L MPV 11.9 Absolute Nucleated RBC 0.21 H Nucleated RBC % (auto) 1.9 Sodium 136 Potassium 3.9 Chloride 101 Carbon Dioxide 29 Anion Gap 6 BUN 40 H Creatinine 1.39 H Est Cr Clr Drug Dosing 39.5 Est GFR ( Amer) 47.6 Est GFR (Non-Af Amer) 41.1 BUN/Creatinine Ratio 28.8 H Glucose 88 Calcium 8.8 Medications Administered Current Medications Acetaminophen (Acetaminophen 325 Mg Tab) 650 mg PO Q4H PRN PRN Reason: pain/fever Stop: 12/07/22 18:15 Last Admin: 11/10/22 09:35 Dose: 650 mg Albuterol (Albut/Ipratrop 3mg/0.5mg Neb 3 Ml Vial) 3 ml NEB Q4R PRN; Protocol PRN Reason: Wheezing Stop: 12/10/22 14:59 Last Admin: 11/10/22 16:27 Dose: 3 ml Amlodipine Besylate (Amlodipine Besylate 5 Mg Tab) 5 mg PO QAM [facility] Stop: 12/08/22 08:59 Last Admin: 11/15/22 08:54 Dose: 5 mg Dexamethasone (Dexamethasone 4 Mg Tab) 4 mg PO DAILY [facility] Stop: 12/08/22 08:59 Last Admin: 11/15/22 08:53 Dose: 4 mg Heparin Sodium (Porcine) (Heparin Sod 5,000 Unit/0.5 Ml Vial) 5,000 units SQ Q8 [facility] Stop: 12/08/22 13:59 Last Admin: 11/15/22 05:58 Dose: 5,000 units Piperacillin Sod/Tazobactam (Sod 4.5 gm/ Dextrose) 120 mls @ 30 mls/hr IV Q8H [facility]; Protocol Stop: 11/18/22 15:59 Last Admin: 11/15/22 08:50 Dose: 30 mls/hr Lidocaine (Lidocaine 5% 1 Patch) 1 patch TD QAM [facility] Stop: 12/13/22 13:29 Last Admin: 11/15/22 08:51 Dose: 1 patch Lorazepam (Lorazepam 0.5 Mg Tab) 0.5 mg PO HS [facility] Stop: 12/07/22 20:59 Last Admin: 02/23/23 22:08 Dose: 0.5 mg Magnesium Oxide (Magnesium Oxide 400 Mg Tab) 400 mg PO QAM [facility] Stop: 12/08/22 08:59 Last Admin: 11/15/22 08:53 Dose: 400 mg Meclizine HCl (Meclizine Hcl 25 Mg Tab) 25 mg PO Q6H PRN PRN Reason: dizziness Stop: 12/07/22 18:11 Miscellaneous (Remove Lidoderm Patch) 1 each N/A DAILY@2100 [facility] Stop: 12/13/22 20:59 Last Admin: 11/14/22 22:10 Dose: 1 each Ondansetron HCl (Ondansetron 4 Mg Od Tab) 4 mg PO Q8H PRN PRN Reason: Nausea And Vomiting Stop: 12/07/22 18:49 Pantoprazole Sodium (Pantoprazole 40 Mg Tab) 40 mg PO BID [facility]; Protocol Stop: 12/07/22 20:59 Last Admin: 11/15/22 08:53 Dose: 40 mg Polyethylene Glycol (Polyethylene (Miralax) 17 Gm Pack) 17 gm PO DAILY PRN PRN Reason: Constipation Stop: 12/10/22 08:57 Last Admin: 11/15/22 08:57 Dose: 17 gm Pregabalin (Pregabalin 150 Mg Cap) 150 mg PO BID [facility] Stop: 12/07/22 20:59 Last Admin: 11/15/22 08:58 Dose: 150 mg Tramadol HCl (Tramadol Hcl 50 Mg Tablet) 50 mg PO Q4H PRN PRN Reason: Pain Stop: 12/07/22 19:29 Last Admin: 11/15/22 11:04 Dose: 50 mg Venlafaxine HCl (Venlafaxine Hcl 37.5 Mg Tab) 75 mg PO QAM [facility] Stop: 12/08/22 08:59 Last Admin: 11/15/22 08:54 Dose: 75 mg
[2022-11-15] MEDS: traMADol HCL 50 MG TABLET PO PRN ×2 (11:04→18:30)
--- NOTE | 2022-11-15 13:12 | Hospitalist Progress Note ---
Date of Service November 15, 2022 Assessment & Plan (1) PNA (pneumonia): Plan: CT shows evidence of obstructive and possible cavitary PNA Now on Zosyn, today is day 5 of a 7 day course crypto antigen, histo ag, aspergillus, ag, b-d glucan, Quantiferon gold all pending consult ID, appreciate recs Patient clinically much improved Upon discharge, she will need oral antibiotics for 10 days (2) Small cell lung cancer: Plan: Weakness, in a patient admitted with small cell lung cancer. 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 Stable (6) Depression: Plan: resume home meds (7) Esophageal stenosis: Plan: GI on consult Plan is to reschedule her osephageal dilation in 2 weks outpatient continue soft diet (8) Shoulder pain: Plan: Placed on tramadol. will monitor. Plan continue hospitalization DVT: heparin Admission and Anticipated Discharge Date Admission Date: November 07, 2022 Subjective patient seen and examined, says sob is much better, currently on 1L oxygen Review of Systems Review of Systems: All systems reviewed are negative, apart from the ones contained in the history. Physical Exam Physical Exam: The patient is awake, alert and oriented 3, well developed and well nourished, normocephalic and atraumatic, lying in bed and in no acute distress. HEENT--PERRL, EOMI, mucous membranes and oropharynx mildly dry Neck--supple. No JVD. No bruits. Thyroid normal, trachea midline, no adenopathy. Heart--normal S1 and S2. No murmurs, rubs or gallops. Lungs--clear bilaterally, no respiratory distress, no accessory muscle use. Abdomen--normal bowel sounds and soft. Mild epigastric and left sided abdominal pain Extremities--no cyanosis or clubbing. No edema. Dermatologic--normal skin turgor, normal color, no abnormal lymph nodes, no rash. Neurologic--cranial nerves II through XII grossly intact. Rheumatologic--normal range of motion. Psychiatric--normal affect. Results & Data Results & Data ([facility]) Vital Signs (Past 12 Hours) Vital Signs Temp Pulse Resp BP Pulse Ox O2 Del Method O2 Flow Rate 11/15/22 10:36 18 94 Nasal Cannula 1 11/15/22 08:25 Nasal Cannula 3 11/15/22 07:59 97.5 F L 74 18 132/74 97 Nasal Cannula 2 11/15/22 06:00 97.3 F L 75 18 136/79 96 Nasal Cannula 3 PG Care Time/CCT Total # of Minutes Spent Total Time Spent with Patient: Total time spent is greater than 50% in coordination of care (as documented) at patient's floor/unit and/or counseling patient: Coding Level of Care Code 75761 SUB INP/OBS CARE 2/35MIN Diagnoses PNA (pneumonia) J18.9 Small cell lung cancer C34.90 Acute respiratory failure with hypoxia J96.01 Pericardial effusion I31.39 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
--- NOTE | 2022-11-15 14:18 | Palliative Care Progress Note ---
Date of Service November 15, 2022 Assessment & Plan (1) Palliative care encounter: (2) Acute respiratory failure with hypoxia: (3) PNA (pneumonia): Plan: Zosyn IV (4) Shoulder pain: Plan: referred from cavitary lung lesion, current regimen is managing well/no change desired. (5) Advanced care planning/counseling discussion: Plan: 20 min face to face discussion for ACP and goals fo care: She states that she and have begun to have some deeper conversations about the what-ifs of her illness and what she may or may not want when things get worse. She has not been able to make any firm decisions but feels relieved she has been able to at least talk about it without getting distraught. She still wants to get stronger and work on her personal goal to be able to resume driving. I very gently guided her through a conversation about what might be some other/alternative more tangible and reachable goals for her given the current condition as the degree of mobility impairment and weakness is hugely prohibitive for MV operations. She was able to process the logic of this and felt that other goals she wants for herself are to return home, see how much stronger she can get and be able to do more for herself independently as far as personal care needs. Plan Abtx per ID No change to current pain regimen, would recc she is dc home with a 30 day supply of pain med to allow for improved comfort as her infection continues to heal. encouraged to continue the adv illness planning discussions. I have offered my assistance if needed. for now she does not want to complete a POLST or other AD format. Palliative medicine will sign off, we remain available to re engage this admission if needed. I have provided pt with my contact information and also advised that she can request an appt with me through cancer clinic if she later feels this might be helpful. Kim Mireles DNP Clinical Director, Palliative Medicine Admission and Anticipated Discharge Date Admission Date: November 07, 2022 Subjective Lori is seen bedside, no family present She is more awake and alert today color more pink, eyes brighter and in general she appears to be feeling better and is asking me if she can go home today she feels the Abtx has made a significant difference no GI concerns she still has referred lung pain to her left collarbone area into scapula but feels the current pain regimen is working fine. she worries this is not going to be something she can get an order for at home, though I advised her it would be ordered for her on discharge in a limited supply since we anticipate pain will improve as she resolves the infection. Review of Systems Review of Systems: All systems reviewed & are unremarkable except as noted in Subjective Physical Exam Physical Exam: Chronically ill-appearing patient, resting in bed. Brighter and more alert than prior visit. bitemp wasting noted. She has cushingoid facies consistent with long-term steroid use Respirations are even without any obvious distress. There is no use of accessory muscles noted. There is no conversational dyspnea. tenderness along left upper chest wall along collarbone to shoulder region, can worsen with cough ing S1S2; no JVD or gross murmur. Abdomen is softly distended. There is mild tenderness along bilateral flank regions and up to her rib cage. She attributes this to perhaps an increased cough. +generalized weakness. Her lower extremities are significantly weak and she is not able to participate in strength testing. Skin is pink, warm to touch. AAO x3. Results & Data ([facility]) Vital Signs (Past 12 Hours) Vital Signs Temp Pulse Resp BP Pulse Ox O2 Del Method O2 Flow Rate 11/15/22 10:36 18 94 Nasal Cannula 1 11/15/22 08:25 Nasal Cannula 3 11/15/22 07:59 36.4 C L 74 18 132/74 97 Nasal Cannula 2 11/15/22 06:00 36.3 C L 75 18 136/79 96 Nasal Cannula 3 Laboratory Results labs and data reviewed PG Care Time/CCT Total # of Minutes Spent Total Time Spent: 70 Total Time Spent with Patient: Total time spent is greater than 50% in coordination of care (as documented) at patient's floor/unit and/or counseling patient: Advanced Care Planning 28342 Advanced Care Planning 30 Min C[place] [address] SUB INP/OBS CARE 3/50MIN Patient Type Established History Comprehensive Exam Comprehensive Medical Decision Making Moderate Complexity Diagnoses Palliative care encounter Z51.5 Acute respiratory failure with hypoxia J96.01 PNA (pneumonia) J18.9 Shoulder pain M25.519 Advanced care planning/counseling discussion Z71.89 Additional Codes Advanced Care Planning - 51646 Advanced Care Planning 30 Min: 22557 Advanced Car e Planning 30 Min ([id number])
--- NOTE | 2022-11-15 15:01 | CT Scan Report ---
CT OF THE CHEST WITHOUT IV CONTRAST CLINICAL HISTORY: Shortness of breath. Follow-up study. Lung cancer. COMPARISON STUDY: Chest CTs April 14, 2020 and November 07, 2022. PET/CT February 21, 2021. CT DOSE: 337.18 mGycm TECHNIQUE: Axial images of the chest were obtained without IV contrast. Images were reviewed in the axial, sagittal, and coronal planes. IV contrast was not administered for this examination. Automat ed exposure control was utilized for the study. A dose lowering technique was utilized adhering to t he principles of ALARA. FINDINGS: Left subclavian [id number] is in place. There is no thoracic lymphadenopathy. A moderat e-sized pericardial effusion has slightly decreased in size since chest CT November 07, 2022. Size of the heart is normal. Left suprahilar and infrahilar irregular densities remain similar. This may ref lect posttreatment change. Trace left pleural effusion is noted. The cavitary focus within the left u pper lobe has significantly increased in size since chest CT July 07, 2023. This now measures 5.3 x 3.9 cm. Underlying bronchopleural fistula would be difficult to exclude. This extends to the pleura . There is an additional tiny fluid and gas containing collection, likely pleural location, within th e left upper lobe on axial image 116. Ground glass and tree-in-bud nodules within the left lower lobe have slightly increased. There is no consolidation within the right lung. There is underlying emphys carissa. Central airways are patent. No suspicious lesions within the bony thorax are noted. Minimal T3 a nd T4 compression fractures are unchanged. Moderate L1 compression fracture is unchanged. There are g allstones within the gallbladder. IMPRESSION: 1. Significant increase in size of the cavitary 5.3 x 3.9 cm left upper lobe focus since CT of Octobe 2022. This favors an infectious process such as necrotizing pneumonia. Underlying bronchopleura l fistula would be difficult to exclude given interval change. Empyema is favored however a pulmonary abscess could appear similar. Interval development of an additional tiny fluid and gas containing co llection, likely pleural in location. 2. Moderate pericardial effusion, slightly decreased in size since prior exam. 3. Slight increase in left lower lobe groundglass and tree-in-bud nodules which are likely infectious . 4. No change in left suprahilar and infrahilar densities which favor posttreatment change. ACT 112: Negative or not required by law. Electronically signed by: Adan Bacon M.D. 11/15/2022 2:59 PM
[2022-11-15] MEDS: LORazepam 0.5 MG TAB PO SCH (20:57)
[2022-11-16] MEDS: HEPARIN SOD 5,000 UNIT/0.5 ML VIAL SQ SCH ×3 (05:24→21:39)
[2022-11-16 05:38] LABS: Hematocrit (blood only) 27.8 % (37.0-47.0); Hemoglobin 9.6 g/dl (12.0-16.0); Mean Corpuscular Hemoglobin 31.6 pg (25.0-34.0); Mean Corpuscular Hgb Conc 34.5 g/dL (32.0-36.0); Mean Corpuscular Volume 91.4 fL (80.0-100.0); Mean Platelet Volume 11.7 fL (9.4-12.4); Nucleated RBC # (auto) 0.26 K/uL (0-0.12); Nucleated RBC % (auto) 2.2 %; Platelet Count 114 K/uL (130-400); RDW Coefficient of Variation 17.3 % (11.5-14.5); Red Blood Count 3.04 M/uL (4.20-5.40); White Blood Count 11.61 K/ul (4.8-10.8)
[2022-11-16 05:54] LABS: BUN Creatinine Ratio 27.8 (10-20); Calcium 8.7 mg/dl (8.5-10.1); Creatinine Clr Calc Pharmacy 38.1 ml/min; Est GFR (African American) 45.6 ml/min; Est GFR (Non-African American) 39.4 ml/min
[2022-11-16] MEDS: VENLAFAXINE HCL 37.5 MG TAB PO SCH (09:03)
[2022-11-16] MEDS: amLODIPine BESYLATE 5 MG TAB PO SCH (09:03)
[2022-11-16] MEDS: MAGNESIUM OXIDE 400 MG TAB PO SCH (09:03)
[2022-11-16] MEDS: PREGABALIN 150 MG CAP PO SCH ×2 (09:04→21:39)
[2022-11-16] MEDS: dexAMETHasone 4 MG TAB PO SCH (09:04)
[2022-11-16] MEDS: PIPERACILLIN/TAZOBACTAM 4.5 GM CI (over 4 hours) IV SCH ×2 (09:04→16:10)
[2022-11-16] MEDS: LIDOCAINE 5% 1 PATCH TD SCH (09:04)
[2022-11-16] MEDS: PANTOprazole 40 MG TAB PO SCH ×2 (09:04→21:39)
[2022-11-16] MEDS: traMADol HCL 50 MG TABLET PO PRN ×2 (09:05→16:14)
--- NOTE | 2022-11-16 09:08 | Pulmonary Consultation ---
Date of Consultation November 16, 2022 Assessment & Plan (1) PNA (pneumonia): Patient with cavitary pneumonia in the left upper lobe. Agree with serologies ordered by ID. Await testing including QuantiFERON gold. Agree with broad- spectrum antibiotics. Would hold off bronchoscopy at this time until these fi nalize. She also has a pericardial effusion which can predispose her to hemodynamic collapse during the sedation used for bronchoscopy. Would recommend cardiology consultation to further comment on this pericardial effusion. O2 requirements minimal at this time. Wean off O2 if able to maintain sats above 92%. (2) Small cell lung cancer: Actively being treated and evaluated by hematology/oncology. Agree with ongoing palliative care discussions as well. (3) Dyspnea: Multifactorial from cancer burden, pericardial effusion and deconditioning. (4) Pericardial effusion: Recommend cardiology consult. Plan Thank you for allowing us to participate in the care of this patient. Please call with questions. History of Present Illness Reason for Consultation: Cavitary lesion Attending Physician: Tito Banegas MD History of Present Illness History obtained by review of the chart. Patient is a poor historian. She had an EBUS bronchoscopy in March 2020 which revealed metastatic small cell carcinoma to the mediastinal and hilar nodes. 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 She was also started on bevacizumab in June 2022 for vasogenic edema. She has Progression of her disease. [facility] disease has been consulted for postobstructive pneumonia. She is currently on Zosyn. Number of serologic labs for atypical organisms and fungal organisms have been sent out. ID is recommending bronchoscopy if no significant improvement to rule out nontuberculous Mycobacterium, other atypical organisms and progressive malignancy. CT chest from 11/15/2021 personally reviewed with evidence of a large cavitary lesion in the left upper lobe nodular opacities in the left lower lobe. She also had a pericardial effusion. Echo 11/11/2022 revealed moderate-sized pericardial effusion without evidence of tamponade physiology. The effusion appears somewhat larger than the last study 11/08/2019. Patient denies any shortness of breath at rest. She does have an intermittent cough. She denies hemoptysis. Weight and appetite are stable. No fevers or chills overnight. She notes that she lives independently in home and does not use oxygen. Allergies Allergy/AdvReac Type Severity Reaction Status Date / Time lisinopril AdvReac Intermediate Cough Verified 11/07/22 16:22 Home Medications Medication Instructions Recorded Confirmed Type pregabalin 150 mg capsule 150 mg PO BID #60 caps 04/02/22 11/07/22 Rx meclizine 25 mg tablet 25 mg PO Q6H PRN dizziness #60 tabs 04/30/22 11/07/22 Rx ondansetron HCl 4 mg tablet 4 mg PO Q8H PRN nausea and 10/14/22 11/07/22 Rx vomiting #30 tabs pantoprazole 40 mg granules 40 mg PO BID 10/14/22 11/07/22 History delayed-release for susp in packet amlodipine 10 mg tablet 5 mg PO QAM 11/06/22 11/07/22 History magnesium oxide 500 mg tablet 500 mg PO QAM 11/06/22 11/07/22 History venlafaxine 75 mg tablet 75 mg PO QAM 11/06/22 11/07/22 History dexamethasone 2 mg tablet 2 mg PO DAILY 11/07/22 11/07/22 History lorazepam 0.5 mg tablet 0.5 - 1 mg PO Q8H PRN anxiety 11/07/22 11/07/22 History Patient History Medical History (Updated 11/16/22 @ 09:07 by Augusto Antoine MD) Acute ITP Advanced care planning/counseling discussion Ambulatory dysfunction Anemia Anxiety Arthritis Bilat Knees & lower back Chronic kidney disease, stage 3 (moderate) Chronic steroid use CKD (chronic kidney disease) stage 3, GFR 30-59 ml/min Depression Dysphagia Dyspnea Esophageal spasm Esophageal stenosis Esophageal stenosis Esophageal ulcer Esophageal ulcer GERD (gastroesophageal reflux disease) H/O idiopathic thrombocytopenic purpura (09/2020) treated w/ steroids History of blood transfusion Hypercholesterolemia Hypertension Hypertension Hypomagnesemia Intractable nausea and vomiting Medical marijuana use patient has not used since march 2021 Palliative care encounter Pancytopenia Pericardial effusion 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) Radiation esophagitis Renal insufficiency Restless leg syndrome Severe protein-calorie malnutrition Small cell lung cancer (04/21/20) chemo finished in Sep 2020 Symptomatic anemia Wheezing Surgical History H/O arthroscopic knee surgery 1998 RIGHT/ 2011 LEFT H/O tubal ligation 1991 H/O: section x2 1987 & 1982 History of bronchoscopy (04/21/20) 04/21/2020 - with positive biopsy History of esophagogastroduodenoscopy (EGD) History of excision of pilonidal cyst 1987 History of open reduction and internal fixation (ORIF) procedure (07/2020) L ankle secondary to fracture History of tooth extraction molars Port-A-Cath in place (05/25/20) Insertion of Mediport Left Subclavian with Fluoroscopy Dr. Ramos 05/25/2020 S/P carpal tunnel release 1989's / 2014 LEFT S/P tonsillectomy Age 4 Family History Mother , Passed age 64 of pancreatic cancer Cancer Hypertension Father Hearing loss Grandmother (Maternal) , Passed age 79 of Stomach Cancer No problems noted. Uncle , Passed in 80's of Colorectal Cancer No problems noted. Brother No problems noted. Brother No problems noted. Sister No problems noted. Grandfather (Maternal) , Passed age 89 of Bladder Cancer No problems noted. Son No problems noted. Daughter Breast cancer Grandmother Cancer Grandfather Cancer Other No family history of adverse response to anesthesia No family history of allergies No family history of bleeding disorder Denies family history of Ovarian cancer Heart disease Lung cancer Asthma Social History Smoking Status: Former smoker Tobacco Type: Cigarettes Age Started Using Tobacco: 20; Age Quit Using Tobacco: 60; packs per day: 1; Cigarettes Per Day: 1 pack; Second Hand Exposure: No; Hx Alcohol Use: No Hx Substance Use: No Preferred Language: Romansh Communication Ability: Effective Visual Impairment: No Limitations Hearing Ability: Normal [employer] Required: No Beliefs That Will Affect Care: None marital status: Current Living Situation: Spouse Current Living Situation Comment: Lives with Stefan in 1 story house, level entry in back current occupational status: employed 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 Patient is in no apparent distress. Patient is well-developed. Eyes: Pupils are equal round and reactive to light. Conjunctivae are normal. Anicteric sclera. Ears nose, mouth and throat: Mallampati class 2. Normal posterior oropharynx. Uvula is midline. Neck: Trachea is midline. Visual inspection is normal. Respiratory: Diminished bilaterally. No wheezes. Cardiovascular: Regular rate and rhythm. No murmurs. No edema. Gastrointestinal: Normal bowel sounds, soft, nontender and nondistended. No hepatosplenomegaly noted. Musculoskeletal: No cyanosis. Patient is able to move all extremities. Strength is 5 out of 5 in the upper and lower extremities. Skin: No rashes, warm dry and intact. Neurologic: No obvious focal neurological deficits seen. Psychiatric: Alert and oriented x3 with a euthymic affect. Results & Data Results & Data ([facility]) Vital Signs (Past 12 Hours) Vital Signs Temp Pulse Resp BP BP Pulse Ox O2 Del Method 11/16/22 07:38 36.4 C L 84 18 123/80 97 Nasal Cannula 11/15/22 22:46 36.3 C L 82 16 127/81 96 Nasal Cannula O2 Flow Rate 11/16/22 07:38 2 11/15/22 22:46 2 PG Care Time/CCT Total # of Minutes Spent Total Time Spent with Patient: Total time spent is greater than 50% in coordination of care (as documented) at patient's floor/unit and/or counseling patient: Coding Level of Care Code INP/OBS CONSULT LVL 4, 60 MIN Diagnoses PNA (pneumonia) J18.9 Small cell lung cancer C34.90 Dyspnea R06.00 Pericardial effusion I31.39
--- NOTE | 2022-11-16 14:10 | Hospitalist Progress Note ---
Date of Service November 16, 2022 Assessment & Plan (1) PNA (pneumonia): Plan: CT shows evidence of obstructive and possible cavitary PNA Repeat CT shows Significant increase in size of the cavitary 5.3 x 3.9 cm left upper lobe focus since the last CT Now on Zosyn, today is day 6 of a 7 day course crypto antigen, histo ag, aspergillus, ag, b-d glucan, Quantiferon gold all pending consult ID, appreciate recs Although Patient clinically much improved, she still complains of a lot of upper back pains, liklely from the cavitary pna Will consult Pulmonology Upon discharge, she will need oral antibiotics for 10 days (2) Small cell lung cancer: Plan: Weakness, in a patient admitted with small cell lung cancer. 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 Stable (6) Depression: Plan: resume home meds (7) Esophageal stenosis: Plan: GI on consult Plan is to reschedule her osephageal dilation in 2 weks outpatient continue soft diet (8) Shoulder pain: Plan: Placed on tramadol. will monitor. Plan continue hospitalization DVT: heparin Admission and Anticipated Discharge Date Admission Date: November 07, 2022 Subjective patient seen and examined, still having a lot of upper back pains Review of Systems Review of Systems: All systems reviewed are negative, apart from the ones contained in the history. Physical Exam Physical Exam: The patient is awake, alert and oriented 3, well developed and well nourished, normocephalic and atraumatic, lying in bed and in no acute distress. HEENT--PERRL, EOMI, mucous membranes and oropharynx mildly dry Neck--supple. No JVD. No bruits. Thyroid normal, trachea midline, no adenopathy. Heart--normal S1 and S2. No murmurs, rubs or gallops. Lungs--clear bilaterally, no respiratory distress, no accessory muscle use. Abdomen--normal bowel sounds and soft. Mild epigastric and left sided abdominal pain Extremities--no cyanosis or clubbing. No edema. Dermatologic--normal skin turgor, normal color, no abnormal lymph nodes, no rash. Neurologic--cranial nerves II through XII grossly intact. Rheumatologic--normal range of motion. Psychiatric--normal affect. Results & Data Results & Data ([facility]) Vital Signs (Past 12 Hours) Vital Signs Temp Pulse Resp BP Pulse Ox O2 Del Method O2 Flow Rate 11/16/22 07:38 97.5 F L 84 18 123/80 97 Nasal Cannula 2 PG Care Time/CCT Total # of Minutes Spent Total Time Spent with Patient: Total time spent is greater than 50% in coordination of care (as documented) at patient's floor/unit and/or counseling patient: Coding Level of Care Code 55846 SUB INP/OBS CARE 2/35MIN Diagnoses PNA (pneumonia) J18.9 Small cell lung cancer C34.90 Acute respiratory failure with hypoxia J96.01 Pericardial effusion I31.39 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
[2022-11-16] MEDS: LORazepam 0.5 MG TAB PO SCH (21:39)
[2022-11-17] MEDS: PIPERACILLIN/TAZOBACTAM 4.5 GM CI (over 4 hours) IV SCH ×3 (00:14→17:13)
[2022-11-17] MEDS: HEPARIN SOD 5,000 UNIT/0.5 ML VIAL SQ SCH ×3 (05:19→21:31)
[2022-11-17 06:41] LABS: Hemoglobin 9.4 g/dl (12.0-16.0); Mean Corpuscular Hemoglobin 32.1 pg (25.0-34.0); Mean Corpuscular Hgb Conc 34.8 g/dL (32.0-36.0); Mean Corpuscular Volume 92.2 fL (80.0-100.0); Mean Platelet Volume 11.7 fL (9.4-12.4); Nucleated RBC # (auto) 0.35 K/uL (0-0.12); Nucleated RBC % (auto) 3.1 %; Platelet Count 132 K/uL (130-400); RDW Coefficient of Variation 17.6 % (11.5-14.5); RDW Standard Deviation 57.3 fL (36.4-46.3); Red Blood Count 2.93 M/uL (4.20-5.40); White Blood Count 11.19 K/ul (4.8-10.8)
[2022-11-17 07:06] LABS: Calcium 8.8 mg/dl (8.5-10.1)
[2022-11-17 07:12] LABS: Creatinine Clr Calc Pharmacy 38.1 ml/min; Est GFR (African American) 45.6 ml/min; Est GFR (Non-African American) 39.4 ml/min
[2022-11-17] MEDS: PREGABALIN 150 MG CAP PO SCH ×2 (09:16→21:31)
[2022-11-17] MEDS: PANTOprazole 40 MG TAB PO SCH ×2 (09:16→21:31)
[2022-11-17] MEDS: MAGNESIUM OXIDE 400 MG TAB PO SCH (09:17)
[2022-11-17] MEDS: VENLAFAXINE HCL 37.5 MG TAB PO SCH (09:17)
[2022-11-17] MEDS: amLODIPine BESYLATE 5 MG TAB PO SCH (09:17)
[2022-11-17] MEDS: dexAMETHasone 4 MG TAB PO SCH (09:17)
[2022-11-17] MEDS: LIDOCAINE 5% 1 PATCH TD SCH (09:17)
[2022-11-17] MEDS: traMADol HCL 50 MG TABLET PO PRN ×3 (09:18→21:32)
--- NOTE | 2022-11-17 10:23 | Pulmonology Progress Note ---
Date of Service November 17, 2022 Assessment & Plan (1) PNA (pneumonia): Plan: Patient with cavitary pneumonia in the left upper lobe. Agree with serologies ordered by ID. Await testing including QuantiFERON gold. Agree with broad- spectrum antibiotics. Would hold off bronchoscopy at this time until these finalize. She also has a pericardial effusion which can predispose her to hemodynamic collapse during the sedation used for bronchoscopy. O2 requirements minimal at this time. Wean off O2 if able to maintain sats above 92%. Appreciate ID input. (2) Small cell lung cancer: Plan: Patient with stage IV small cell carcinoma diagnosed on EBUS in March 2020. Actively being treated and evaluated by hematology/oncology. Agree with ongoing palliative care discussions as well. (3) Dyspnea: Plan: Multifactorial from cancer burden, pericardial effusion and deconditioning. (4) Pericardial effusion: Plan: Cardiology following. Suspect malignant effusion. Plan Thank you for allowing us to participate in the care of this patient. Please call with questions. Admission and Anticipated Discharge Date Admission Date: November 07, 2022 Subjective Patient remains on 2 L of oxygen saturating in the mid 90s. No fevers, chills or night sweats. Review of Systems Review of Systems: All systems reviewed & are unremarkable except as noted in HPI & below Physical Exam Physical Exam: Constitutional: Patient appears to be of their stated age. Patient is in no apparent distress. Patient is well-developed. Eyes: Pupils are equal round and reactive to light. Conjunctivae are normal. Anicteric sclera. Ears nose, mouth and throat: Mallampati class 2. Normal posterior oropharynx. Uvula is midline. Neck: Trachea is midline. Visual inspection is normal. Respiratory: Diminished bilaterally. No wheezes. Cardiovascular: Regular rate and rhythm. No murmurs. No edema. Gastrointestinal: Normal bowel sounds, soft, nontender and nondistended. No hepatosplenomegaly noted. Musculoskeletal: No cyanosis. Patient is able to move all extremities. Strength is 5 out of 5 in the upper and lower extremities. Skin: No rashes, warm dry and intact. Neurologic: No obvious focal neurological deficits seen. Psychiatric: Alert and oriented x3 with a euthymic affect. Results & Data Results & Data ([facility]) Vital Signs (Past 12 Hours) Vital Signs Temp Pulse Pulse Resp BP Pulse Ox O2 Del Method 11/17/22 09:28 96 Nasal Cannula 11/17/22 07:46 36.3 C L 95 H 18 130/75 91 Nasal Cannula 11/16/22 23:11 36.4 C L 79 20 140/87 95 Nasal Cannula 11/16/22 22:57 Nasal Cannula O2 Flow Rate 11/17/22 09:28 2 11/17/22 07:46 2 11/16/22 23:11 2 11/16/22 22:57 2 PG Care Time/CCT Total # of Minutes Spent Total Time Spent with Patient: Total time spent is greater than 50% in coordination of care (as documented) at patient's floor/unit and/or counseling patient: Coding Level of Care Code 43174 SUB INP/OBS CARE 235MIN Diagnoses PNA (pneumonia) J18.9 Small cell lung cancer C34.90 Dyspnea R06.00 Pericardial effusion I31.39
--- NOTE | 2022-11-17 13:10 | Hospitalist Progress Note ---
Date of Service November 17, 2022 Assessment & Plan (1) PNA (pneumonia): Plan: CT on admission shows evidence of obstructive and cavitary PNA Repeat CT shows Significant increase in size of the cavitary 5.3 x 3.9 cm left upper lobe focus since the last CT Now on Zosyn, today is day 7 of a 7 day course crypto antigen, histo ag, aspergillus, ag, b-d glucan, Quantiferon gold all pending Although Patient clinically much improved, she still complains of a lot of upper back pains, likely from the cavitary pna Pulmonary suggest bronchoscopy may be high risk given her pericardial effusion, which cardiology says is chronic Upon discharge, she will need oral antibiotics for 10 more days (2) Small cell lung cancer: Plan: Weakness, in a patient admitted with small cell lung cancer. 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 Stable (6) Depression: Plan: resume home meds (7) Esophageal stenosis: Plan: GI on consult Plan is to reschedule her osephageal dilation in 2 weks outpatient continue soft diet (8) Shoulder pain: Plan: Placed on tramadol. will monitor. Plan continue hospitalization DVT: heparin Admission and Anticipated Discharge Date Admission Date: November 07, 2022 Subjective patient seen and examined, still on 2L of oxygen, says sob is better, but tends to get worse when she sits up Review of Systems Review of Systems: All systems reviewed are negative, apart from the ones contained in the history. Physical Exam Physical Exam: The patient is awake, alert and oriented 3, well developed and well nourished, normocephalic and atraumatic, lying in bed and in no acute distress. HEENT--PERRL, EOMI, mucous membranes and oropharynx mildly dry Neck--supple. No JVD. No bruits. Thyroid normal, trachea midline, no adenopathy. Heart--normal S1 and S2. No murmurs, rubs or gallops. Lungs--Reduced air entry on auscultation Abdomen--normal bowel sounds and soft. Mild epigastric and left sided abdominal pain Extremities--no cyanosis or clubbing. No edema. Dermatologic--normal skin turgor, normal color, no abnormal lymph nodes, no rash. Neurologic--cranial nerves II through XII grossly intact. Rheumatologic--normal range of motion. Psychiatric--normal affect. Results & Data Results & Data ([facility]) Vital Signs (Past 12 Hours) Vital Signs Temp Pulse Resp BP Pulse Ox O2 Del Method O2 Flow Rate 11/17/22 09:28 96 Nasal Cannula 2 11/17/22 07:46 97.3 F L 95 H 18 130/75 91 Nasal Cannula 2 PG Care Time/CCT Total # of Minutes Spent Total Time Spent with Patient: Total time spent is greater than 50% in coordination of care (as documented) at patient's floor/unit and/or counseling patient: Coding Level of Care Code 81039 SUB INP/OBS CARE 2/35MIN Diagnoses PNA (pneumonia) J18.9 Small cell lung cancer C34.90 Acute respiratory failure with hypoxia J96.01 Pericardial effusion I31.39 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
[2022-11-17 15:11] LABS: Quantiferon Mitogen-NIL 0.09 IU/mL; Quantiferon NIL 0.07 IU/mL; Quantiferon TB Gold Plus INDETERMINATE (NEGATIVE); Quantiferon TB1-NIL <0.00 IU/mL; Quantiferon TB2-NIL <0.00 IU/mL
[2022-11-17] MEDS: LORazepam 0.5 MG TAB PO SCH (21:31)
[2022-11-18] MEDS: PIPERACILLIN/TAZOBACTAM 4.5 GM CI (over 4 hours) IV SCH ×2 (00:14→08:28)
[2022-11-18] MEDS: HEPARIN SOD 5,000 UNIT/0.5 ML VIAL SQ SCH ×3 (06:01→20:20)
[2022-11-18 06:16] LABS: Hematocrit (blood only) 27.5 % (37.0-47.0); Hemoglobin 9.3 g/dl (12.0-16.0); Mean Corpuscular Hemoglobin 31.3 pg (25.0-34.0); Mean Corpuscular Hgb Conc 33.8 g/dL (32.0-36.0); Mean Corpuscular Volume 92.6 fL (80.0-100.0); Mean Platelet Volume 11.4 fL (9.4-12.4); Nucleated RBC # (auto) 0.43 K/uL (0-0.12); Nucleated RBC % (auto) 3.7 %; Platelet Count 144 K/uL (130-400); RDW Standard Deviation 57.1 fL (36.4-46.3); Red Blood Count 2.97 M/uL (4.20-5.40); White Blood Count 11.68 K/ul (4.8-10.8)
[2022-11-18 06:26] LABS: BUN Creatinine Ratio 26.3 (10-20); Calcium 8.9 mg/dl (8.5-10.1); Creatinine Clr Calc Pharmacy 41.3 ml/min; Est GFR (African American) 50.2 ml/min; Est GFR (Non-African American) 43.3 ml/min; Potassium 4.5 mmol/L (3.5-5.1)
[2022-11-18] MEDS: VENLAFAXINE HCL 37.5 MG TAB PO SCH (08:32)
[2022-11-18] MEDS: dexAMETHasone 4 MG TAB PO SCH (08:32)
[2022-11-18] MEDS: MAGNESIUM OXIDE 400 MG TAB PO SCH (08:32)
[2022-11-18] MEDS: amLODIPine BESYLATE 5 MG TAB PO SCH (08:33)
[2022-11-18] MEDS: PREGABALIN 150 MG CAP PO SCH ×2 (08:34→20:19)
[2022-11-18] MEDS: LIDOCAINE 5% 1 PATCH TD SCH (08:34)
--- NOTE | 2022-11-18 09:08 | Pulmonology Progress Note ---
Date of Service November 18, 2022 Assessment & Plan (1) PNA (pneumonia): Plan: IMPRESSION: Unfortunate 62-year-old female with stage IV metastatic small cell lung cancer presenting with pneumonia and concerns for cavitated lesion of the LEFT upper lobe as well as moderate-sized pericardial effusion. RECOMMENDATIONS: 1. Pneumonia - * CT chest on 11/15 demonstrates: * Significant increase in size of the cavitary 5.3 x 3.9 cm left upper lobe focus since CT of July 07, 2023. This favors an infectious process such as necrotizing pneumonia. Underlying bronchopleural fistula would be difficult to exclude given interval change. Empyema is favored however a pulmonary abscess could appear similar. Interval development of an additional tiny fluid and gas containing collection, likely pleural in location. * She is currently being treated with Zosyn as their is a concern for aspiration component with higher likelihood of anaerobes. 2. Stage IV Metastatic Small Cell Lung Cancer: * Managed by Heme/Onc 3. Dyspnea: * Multifactorial in the setting of pneumonia with ??lung abscess as well as large pericardial effusion. Thank you for allowing us to participate in the care of this patient. We will continue to follow with the patient during inpatient stay. (2) Small cell lung cancer: (3) Pericardial effusion: (4) Dyspnea: Admission and Anticipated Discharge Date Admission Date: November 07, 2022 Supervising Physician Co-Signing Physician Notes Patient seen and examined. EMR reviewed. Discussed with off going carton maker as well as with DA. Agree with assessment and plan as noted above with following changes. I reviewed the CT images with radiology. I think the air-fluid level appears to be extrapulmonary within the pleural space rather than intraparenchymal. If it were intraparenchymal this would likely represent a lung abscess. If it is in the pleural space it likely represents empyema. The fluid collection is not easily accessible to ultrasound or CT-guided drain placement and the patient is a poor candidate for video-assisted thoracoscopic evaluation or pleuroscopy. At this point in time it seems most prudent to proceed with antibiotic coverage (okay to de-escalate to oral Augmentin) and plan on doing a follow-up CT scan in 4 weeks. Would continue antimicrobial coverage until the follow-up CT scan has been completed and she has been able to follow-up with pulmonary or infectious disease. I will arrange for outpatient follow-up with me in the pulmonary clinic. Since I saw her last 2 years ago, the patient has had significant decline in her functional status. She has had disease progression and received second and third line chemotherapy but has had responses to both of these regimens. Her current imaging does not appear to be consistent with progression of disease at this time. The pericardial effusion appears chronic in nature and does not ap pear to have progressed without evidence of tamponade physiology. Subjective Patient seen and evaluated at bedside by myself with Dr. Rosa. She reports that she continues to feel well. She does report a cough which is positional. She denies any chest pain, palpitations, shortness of breath. She reports no hemoptysis. She offers no new complaints Review of Systems Review of Systems: A complete 6 point review of systems was reviewed with the patient with pertinent positives and negatives as per history of present illness. All else were negative. Physical Exam Physical Exam: VITAL SIGNS - Vital signs and nursing notes were reviewed. GENERAL - 62-year-old female stated age who is in no acute distress. Communicates well with provider and answers questions appropriately. NECK - Neck with FROM. LUNGS - Decreased air entry throughout. No rales noted. CARDIAC - RRR with S1/S2. No murmur, rubs, or gallops appreciated. No reproducible tenderness to palpation appreciated over the anterior chest wall. ABDOMEN - Abdominal contour obese without pulsations or visible masses. BS normoactive all four quadrants. No tenderness, palpable masses, hepatosple nomegaly, or ascites noted. NEUROLOGIC - Cranial nerves II through XII grossly intact. PSYCH - A&Ox3 and cooperates fully with examiner. Pt is very pleasant and interacts well with examiner. Results & Data Results & Data ([facility]) Vital Signs (Past 12 Hours) Vital Signs Temp Pulse Pulse Resp BP Pulse Ox O2 Del Method 11/18/22 07:45 36.3 C L 82 18 144/88 H 96 Nasal Cannula 11/18/22 07:21 Nasal Cannula 11/18/22 07:16 36.8 C 87 18 139/89 94 Nasal Cannula O2 Flow Rate 11/18/22 07:45 2 11/18/22 07:21 2 11/18/22 07:16 2 PG Care Time/CCT Total # of Minutes Spent Total Time Spent with Patient: Total time spent is greater than 50% in coordination of care (as documented) at patient's floor/unit and/or counseling patient: Coding Level of Care Code 77272 SUB INP/OBS CARE 50MIN Diagnoses PNA (pneumonia) J18.9 Small cell lung cancer C34.90 Pericardial effusion I31.39 Dyspnea R06.00
[2022-11-18] MEDS: PANTOprazole 40 MG TAB PO SCH ×2 (09:18→20:20)
[2022-11-18] MEDS: traMADol HCL 50 MG TABLET PO PRN (12:19)
--- NOTE | 2022-11-18 15:48 | Hospitalist Progress Note ---
Date of Service November 18, 2022 Assessment & Plan (1) PNA (pneumonia): Plan: CT on admission shows evidence of obstructive and cavitary PNA Repeat CT shows Significant increase in size of the cavitary 5.3 x 3.9 cm left upper lobe focus since the last CT Now on Zosyn, today is day 8 crypto antigen, histo ag, aspergillus, ag, b-d glucan, all pending, Quantiferon gold was indeterminate Pulmonary suggest bronchoscopy may be high risk given her pericardial effusion, which cardiology says is chronic Upon discharge, she will need oral antibiotics for 10 more days (2) Small cell lung cancer: Plan: Weakness, in a patient admitted with small cell lung cancer. 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 Stable (6) Depression: Plan: resume home meds (7) Esophageal stenosis: Plan: GI on consult Plan is to reschedule her osephageal dilation in 2 weks outpatient continue soft diet (8) Shoulder pain: Plan: Placed on tramadol. will monitor. Plan continue hospitalization DVT: heparin Admission and Anticipated Discharge Date Admission Date: November 07, 2022 Subjective patient seen and examined, her SOB is about the same, she was lying in bed Review of Systems Review of Systems: A complete 6 point review of systems was reviewed with the patient with pertinent positives and negatives as per history of present illness. All else were negative. Physical Exam Physical Exam: The patient is awake, alert and oriented 3, well developed and well nourished, normocephalic and atraumatic, lying in bed and in no acute distress. HEENT--PERRL, EOMI, mucous membranes and oropharynx mildly dry Neck--supple. No JVD. No bruits. Thyroid normal, trachea midline, no adenopathy. Heart--normal S1 and S2. No murmurs, rubs or gallops. Lungs--Reduced air entry on auscultation Abdomen--normal bowel sounds and soft. Mild epigastric and left sided abdominal pain Extremities--no cyanosis or clubbing. No edema. Dermatologic--normal skin turgor, normal color, no abnormal lymph nodes, no rash. Neurologic--cranial nerves II through XII grossly intact. Rheumatologic--normal range of motion. Psychiatric--normal affect. Results & Data Results & Data ([facility]) Vital Signs (Past 12 Hours) Vital Signs Temp Pulse Pulse Resp BP Pulse Ox O2 Del Method 11/18/22 14:39 97.7 F 93 H 16 118/74 96 Room Air 11/18/22 07:45 97.3 F L 82 18 144/88 H 96 Nasal Cannula 11/18/22 07:21 Nasal Cannula 11/18/22 07:16 98.2 F 87 18 139/89 94 Nasal Cannula O2 Flow Rate 11/18/22 14:39 11/18/22 07:45 2 11/18/22 07:21 2 11/18/22 07:16 2 PG Care Time/CCT Total # of Minutes Spent Total Time Spent with Patient: Total time spent is greater than 50% in coordination of care (as documented) at patient's floor/unit and/or counseling patient: Coding Level of Care Code 33913 SUB INP/OBS CARE 235MIN Diagnoses PNA (pneumonia) J18.9 Small cell lung cancer C34.90 Acute respiratory failure with hypoxia J96.01 Pericardial effusion I31.39 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
--- NOTE | 2022-11-18 17:41 | CT Scan Report ---
CT chest diagnostic wo con CT DOSE: 322.39 mGy.cm HISTORY: Shortness of breath. follow up TECHNIQUE: Multiaxial CT images of the chest were performed without contrast. A dose lowering techni que was utilized adhering to the principles of ALARA. COMPARISON: Chest CT 11/15/2022. FINDINGS: No suspicious lytic or blastic osseous lesions. The left Port-A-Cath terminates in the prox imal SVC. A moderate anterior wedge-shaped compression fracture at L1 remains unchanged. Minimal T3 a nd T4 compression fractures are also unchanged. Limited views of the upper abdomen demonstrate mild h epatic steatosis and a normal spleen. Cholelithiasis is noted. Normal adrenal glands. The heart is no rmal in size. Normal caliber thoracic aorta. Normal esophagus. No mediastinal or right hilar lymphade nopathy. No change in the moderate pericardial effusion. There is progressive volume loss/consolidati on within the apical segments of the left upper lobe. Focal gas and fluid collection within the perip bertin the left midlung zone is similar to the prior study. This measures approximate 5.3 x 3.9 cm. Thi s may reside within the pleural space. There is a small amount of partially loculated pleural fluid w ithin the left lung apex which has slightly progressed. Irregular left perihilar densities are simila r to the prior study. This results in diffuse narrowing of the central bronchi. Reticulonodular inter stitial thickening within the base of the left lower lobe persists and may represent a postobstructiv e or aspiration pneumonitis. Mild emphysema again noted. Right basilar linear densities favor subsegm ental atelectasis. IMPRESSION: 1. No significant change in the 5.3 x 3.9 cm loculated gas and fluid collection within the periphery the left midlung zone . This may reside within the pleural space. Therefore, an underlying bronchople ural fistula would be difficult to exclude. 2. There is progressive volume loss/consolidation within the apical segments of the left upper lobe w ith an associated small amount of partially loculated pleural fluid at the left lung apex. 3. Reticulonodular interstitial thickening within the base of the left lower lobe persists and may re present a postobstructive or aspiration pneumonitis. 4. No change in the left perihilar irregular densities which favor posttreatment changes. 5. Moderate pericardial effusion, unchanged. ACT 112: Negative or not required by law. Electronically signed by: Francisco Aquino M.D. 11/18/2022 5:38 PM
[2022-11-18] MEDS: LORazepam 0.5 MG TAB PO SCH (20:19)
[2022-11-19] MEDS: HEPARIN SOD 5,000 UNIT/0.5 ML VIAL SQ SCH (05:37)
[2022-11-19 07:05] VITALS: BP 154/89; TEMP 97.7
[2022-11-19] MEDS: PREGABALIN 150 MG CAP PO SCH (08:34)
[2022-11-19] MEDS: amLODIPine BESYLATE 5 MG TAB PO SCH (08:34)
[2022-11-19] MEDS: dexAMETHasone 4 MG TAB PO SCH (08:34)
[2022-11-19] MEDS: VENLAFAXINE HCL 37.5 MG TAB PO SCH (08:35)
[2022-11-19] MEDS: MAGNESIUM OXIDE 400 MG TAB PO SCH (08:35)
[2022-11-19] MEDS: PANTOprazole 40 MG TAB PO SCH (08:35)
[2022-11-19] MEDS: LIDOCAINE 5% 1 PATCH TD SCH (08:36)
--- NOTE | 2022-11-19 11:09 | Pulmonology Progress Note ---
Date of Service November 19, 2022 Assessment & Plan (1) PNA (pneumonia): Plan: IMPRESSION: Unfortunate 62-year-old female with stage IV metastatic small cell lung cancer presenting with pneumonia and concerns for cavitated lesion of the LEFT upper lobe as well as moderate-sized pericardial effusion. RECOMMENDATIONS: 1. Pneumonia - * CT chest on 11/15 demonstrates: * Significant increase in size of the cavitary 5.3 x 3.9 cm left upper lobe focus since CT of July 07, 2023. This favors an infectious process such as necrotizing pneumonia. Underlying bronchopleural fistula would be difficult to exclude given interval change. Empyema is favored however a pulmonary abscess could appear similar. Interval development of an additional tiny fluid and gas containing collection, likely pleural in location. * As noted yesterday per my attending's conversation with radiology, the air- fluid level appears to be extrapulmonary within the pleural space and likely represents an empyema. Unfortunately, definitive diagnosis could be made for fluid collection, however given the location, patient would likely warrant VATS or pleuroscopy for definitive management. Thankfully, the patient's symptoms have improved while on antibiotics. She has had no ongoing fevers. No worsening leukocytosis. She remains on minimal supplemental oxygen. In discussion with family at bedside today. They are verbal with treated with antibiotics in the short-term plan for follow-up CT to be performed in the outpatient. She can follow-up with our office as she has done previously. Patient and family member were present and in agreement with discussion. They would rather seek conservative measures then undergo aggressive thoracic procedures at this time. Her antibiotics are being transitioned to Augmentin. She is hopeful to be discharged home soon. 2. Stage IV Metastatic Small Cell Lung Cancer: * Managed by Heme/Onc 3. Dyspnea: * Multifactorial in the setting of pneumonia with empyema as well as large pericardial effusion. Thank you for allowing us to participate in the care of this patient. We will continue to follow with the patient during inpatient stay. (2) Small cell lung cancer: (3) Pericardial effusion: (4) Dyspnea: Admission and Anticipated Discharge Date Admission Date: November 07, 2022 Supervising Physician Co-Signing Physician Notes EMR reviewed. Discussed with DA. No changes to assessment plan as per yesterday. Agree with prolonged course of antibiotics and follow-up imaging. I would be happy to see her back in the clinic. Again it is unclear whether this represents a lung abscess or an empyema. Empyema unlikely to resolve with antibiotic therapy alone and lung ab scess typically requires prolonged course of antibiotics up to the 8 to 12 weeks. Subjective Patient was seen and evaluated at bedside today. She reports that she continues to feel well. She reports that her breathing is stable. She denies any chest pain, palpitations, shortness of breath, or hemoptysis. She provides no new complaints otherwise Review of Systems Review of Systems: A complete 6 point review of systems was reviewed with the patient with pertinent positives and negatives as per history of present illness. All else were negative. Physical Exam Physical Exam: VITAL SIGNS - Vital signs and nursing notes were reviewed. GENERAL - 62-year-old female stated age who is in no acute distress. Communicates well with provider and answers questions appropriately. NECK - Neck with FROM. LUNGS - Decreased air entry throughout. No rales noted. CARDIAC - RRR with S1/S2. No murmur, rubs, or gallops appreciated. No reproducible tenderness to palpation appreciated over the anterior chest wall. ABDOMEN - Abdominal contour obese without pulsations or visible masses. BS normoactive all four quadrants. NEUROLOGIC - Cranial nerves II through XII grossly intact. PSYCH - A&Ox3 and cooperates fully with examiner. Pt is very pleasant and interacts well with examiner. Results & Data Results & Data ([facility]) Vital Signs (Past 12 Hours) Vital Signs Temp Pulse Resp BP Pulse Ox O2 Del Method O2 Flow Rate 11/19/22 07:07 Nasal Cannula 2 11/19/22 07:03 36.5 C 79 16 154/89 H 95 Nasal Cannula 2 PG Care Time/CCT Total # of Minutes Spent Total Time Spent with Patient: Total time spent is greater than 50% in coordination of care (as documented) at patient's floor/unit and/or counseling patient: Coding Level of Care Code 18054 SUB INP/OBS CARE 2/35MIN Diagnoses PNA (pneumonia) J18.9 Small cell lung cancer C34.90 Pericardial effusion I31.39 Dyspnea R06.00
[2022-11-19 12:43] VITALS: PULSE 79; O2SAT 95
--- NOTE | 2022-11-19 14:02 | Discharge Summary ---
Date of Service November 19, 2022 Admission HPI Per Admitting Provider 62 yo female with stage 4 smalll cell lung cancer presents to the hospital after waking up this morning feeling sick. She was her normal state of health on 11/06. However overnight, she had worsening back pain and GI upset. In the morning when she woke up, she had nausea, vomiting and diarrhea. Patient denies any sick contacts. Her helped her to the shower, and her face looked ashed cardona. He took her back to bed. As hse did not improve, he took her to the hospital. Patient was found to have JOSE ANTONIO. Patient was placed on IVF and IV antibiotics, admission was called. Principal Diagnosis Cavitary PNA, Lung cancer Discharge Exam The patient is awake, alert and oriented 3, well developed and well nourished, normocephalic and atraumatic, lying in bed and in no acute distress. HEENT--PERRL, EOMI, mucous membranes and oropharynx mildly dry Neck--supple. No JVD. No bruits. Thyroid normal, trachea midline, no adenopathy. Heart--normal S1 and S2. No murmurs, rubs or gallops. Lungs--Reduced air entry on auscultation Abdomen--normal bowel sounds and soft. Mild epigastric and left sided abdominal pain Extremities--no cyanosis or clubbing. No edema. Dermatologic--normal skin turgor, normal color, no abnormal lymph nodes, no rash. Neurologic--cranial nerves II through XII grossly intact. Rheumatologic--normal range of motion. Psychiatric--normal affect. Discharge Data Allergies Allergy/AdvReac Type Severity Reaction Status Date / Time lisinopril AdvReac Intermediate Cough Verified 11/07/22 16:22 Consultations 11/07/22 16:13 ED Decision to Admit Stat 11/07/22 17:11 Consult Hematology Routine 11/08/22 12:51 Consult Palliative Care Routine 11/10/22 16:12 Consult Oncology Routine 11/11/22 10:28 Consult Gastroenterology Routine 11/11/22 10:33 Consult Infectious Diseases Routine 11/11/22 14:27 Consult Cardiology Routine 11/16/22 07:29 Consult Pulmonology Routine Ordered Studies 11/07/22 13:44 CT abd pelvis IV con only Stat CT angio chest PE protocol Stat 11/07/22 13:48 CT head/brain wo con Stat 11/15/22 13:09 CT chest diagnostic wo con Routine 11/18/22 16:45 CT chest diagnostic wo con Routine Hospital Course (1) PNA (pneumonia): CT on admission shows evidence of obstructive and cavitary PNA Repeat CT shows Significant increase in size of the cavitary 5.3 x 3.9 cm left upper lobe focus since the last CT Completed 9 days of IV Zosyn crypto antigen, histo ag, aspergillus, ag, b-d glucan, all pending, Quantiferon gold was indeterminate Pulmonary suggest bronchoscopy may be high risk given her pericardial effusion, which cardiology says is chronic Upon discharge, she will need oral antibiotics for 10 more days (2) Small cell lung cancer: Weakness, in a patient admitted with small cell lung cancer. 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 Stable (6) Depression: resume home meds (7) Esophageal stenosis: GI on consult Plan is to reschedule her osephageal dilation in 2 weks outpatient continue soft diet (8) Shoulder pain: Placed on tramadol. will monitor. Plan d/c home, follow up with ID and PCP Total Time Total Time Spent Total Time Spent (In Minutes): 35 Discharge Plan Discharge Items Patient Disposition: Home - Home Health Services Reason For Visit: BACK PAIN Discharge Diagnosis: Pneumonia, Lung cancer Activity: Per Instructions section Lifting: Gradually increase as tolerated Non-emergency contact: Primary Care Provider and Oncologist Call non-emergency contact if: you have any medication questions and your symptoms worsen Follow-up/Referrals: Jane Ortiz DO [Primary Care Provider] - 11/26/22 8:00 am Diet: Regular Addtl Attending Provider Instructions: Please make appointment to follow up with your regular PCP and Oncologist Re establish your outpatient physical therapy Pending Studies at Discharge: No Stand-Alone Forms: My [facility] [address], Smoking Cessation Medications and DC Order Prescriptions: New amoxicillin-pot clavulanate 875-125 mg tablet 1 tab PO BID 10 Days Qty: 20 0RF Continued pregabalin 150 mg capsule 150 mg PO BID Qty: 60 5RF Rx Instructions: PDMP check last fill 10/21/21 meclizine 25 mg tablet 25 mg PO Q6H PRN (Reason: dizziness) Qty: 60 0RF magnesium oxide 500 mg Tablet 500 mg PO QAM venlafaxine 75 mg tablet 75 mg PO QAM Rx Instructions: PO daily amlodipine 10 mg tablet 5 mg PO QAM pantoprazole [address] for susp in packet 40 mg PO BID ondansetron HCl 4 mg tablet 4 mg PO Q8H PRN (Reason: nausea and vomiting) Qty: 30 0RF dexamethasone 2 mg tablet 2 mg PO DAILY lorazepam 0.5 mg tablet 0.5 - 1 mg PO Q8H PRN (Reason: anxiety) Rx Instructions: 1-2 tabs PO every 8 hours PRN; Discharge Orders: Discharge Order (Routine); Ordered 11/19/22 Ordered By: Tito Thompson/Other Patient Handouts: Preventing Pneumonia, Treating Pneumonia Admission Data Admit Date/Time: 11/07/22 17:19 Attending Provider: Tito Banegas Admit Provider: Benji Muse Primary Care Provider: Jane Ortiz Other Providers: Joselito Oropeza ; Ce Arrieta ; Kim Mireles ; Sherman Martinez ; Kady Stinson ; Giovani Shin ; Keyona Wang ; Rylie Ortiz ; Maribel Whitt ; Jo Cox ; Brandy Pace ; Onofre Nicole ; Kacey Samson ; Leon Walsh ; Augusto Antoine Other Interventions: Discharge Summary Assessment (RN) Last Done: 11/19/22 12:41 Coding Level of Care Code 34281 INP/OBS DISCH >30 MIN Diagnoses PNA (pneumonia) J18.9 Small cell lung cancer C34.90 Acute respiratory failure with hypoxia J96.01 Pericardial effusion I31.39 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
[2022-11-19 16:03] LABS: Aspergillus Ag Index 0.08 (<0.50); Aspergillus Antigen, Serum Not Detected (Not Detected); Cryptococcal Antigen Not Detected (Not Detected); Fungitell (1-3)-B-D-Glucan <31 pg/mL; Source Serum
== END 2022-11-19 13:24 | disposition home or self-care (01) | DRG 180 ==
LOC: ED 11:37 → 3E 17:19 → SUATTDRO 17:19 → 3E 18:17

== ENCOUNTER 2022-12-15 06:28 | Inpatient (IN) ==
--- NOTE | 2022-12-15 06:53 | Emergency Department Note ---
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 Patient was hospitalized about a month ago for left upper lobe abscess which was treated with Augmentin. Unfortunately after stopping antibiotics symptoms started to return. She arrives with increasing left upper chest pain and difficulty breathing. Symptoms resolve significantly with IV narcotics and oxygen. Symptoms are not consistent nor findings consistent with this being ACS. Chest x-ray reveals continued area of abscess in the left upper lobe that is moderately increased in size as well as some left-sided effusion. Patient had blood cultures ordered along with lactic acid. Lactic acid is modestly elevated. This is likely somewhat due to infectious etiology but also malnutrition state. Patient did have fluid resuscitation ordered (1.5 L) however difficulty infusing through the port and some difficulties with access. This resulted in delayed blood cultures, repeat lactic acid and getting fluid resuscitation. Patient was empirically given Unasyn for abscesses previously responded to Augmentin. Her blood pressure remained stable and lactate was not greater than 4. I had a long discussion with both her and her . They note that they actually had attempted to get hospice involved earlier in this week but this was somewhat declined given that she had recently received chemotherapy. It sounds like they are leaning towards further discussions with palliative care about what the best approach is as she has not been able to get up for months and has pretty much been just laying in bed with progressively worsening weakness requiring essentially constant use of Decadron. Hospitalist consulted for further management. Prior Medical Record and Triage/Nursing Notes reviewed by Me Extensive external chart review performed by me Differentials:Pneumonia, abscess, pneumothorax, ACS, dissection, PE, effusion, many other pathologies considered including cancer related pain Vital Signs: reviewed and remarkable for mild hypoxia chronic Interventions: Normal saline bolus 1.5 L total, Dilaudid 0.5 mg IV x2, Unasyn 3 g IV Labs:Reviewed and remarkable for elevated lactic acid Imagin view chest x-ray interpreted by me reveals left upper lobe opacity consistent with abscess/lung collapse similar to previous however it is now enlarged and there is a left lower lobe effusion EKG:Indication left chest pain. Interpretation by me. Normal sinus rhythm at 98 bpm with a QTc of 416. There is no ectopy nor ischemia. When compared to an EKG of November 07, 2022 there is no significant change. Cardiac/Tele Monitoring: Cardiac Monitoring: An Order was placed for continuous cardiac monitoring. The monitor shows a rate of 80 with a normal sinus rhythm. Consults:Discussed with Dr. [facility] service Plan: Disposition:Hospitalization. Condition: Poor History of Present Illness:62-year-old female arrives for evaluation of left chest pain. Patient with a complex history of lung cancer and a brain tumor who is on chronic steroid due to cerebral edema. Patient notes that she is still obtaining chemotherapy as an outpatient. Patient awoke overnight with increasing left-sided chest pain. Associated with some nausea and feeling like she could not catch her breath. She was given morphine in route by EMS with improvement in pain. She does feel much better now. This left-sided chest pain is very much similar to her previous pain when admitted a little over a month ago. At that point she was diagnosed with a lung abscess. She is finishing antibiotics since then. She spent about a week and a half or 2 in the hospital at that time. Patient has been increasingly weak at home and notes he no longer can really keep her from falling off the ground. They did have hospice to evaluate her but they declined due to patient still being on chemotherapy per the . Patient is receiving Decadron twice daily, Ativan as needed amongst multiple other medications Past History:See Below Home Medications:See Below Allergies:See Below Vitals:Blood Pressure: 124/75, Pulse 97, RR 19, T 36.6C, O2 92% on 2L NC (chronic) Physical Exam: GENERAL: Patient is unwell appearing and in mild distress. EYES: No scleral icterus, unremarkable pupils. ENT: Mucous membranes moist, no nasal congestion. RESPIRATORY: Mildly tachypneic with decreased breath sounds throughout no overt wheezing or crackles appreciated CARDIOVASCULAR: Regular rate and rhythm.No murmurs, rubs, gallops appreciated. GASTROINTESTINAL: Abdomen soft, non-tender, no peritonitis. EXTREMITIES: Normal motion upper extremities with good pulses NEUROLOGIC: Alert and oriented, no focal neurologic deficit appreciated SKIN: No rash, no jaundice, no diaphoresis. ED Course: Times/Reassessments: Patient arrives feeling much better having gotten IV narcotic by EMS. She did require some repeat pain medications throughout her stay. Remains relatively stable with some mild worsening of her O2 sats. 9:15 AM. Of note patient has an elevated lactic acid with concern for left upper lobe pneumonia and sepsis. She was ordered 1.5 L as per ideal body weight with BMI of 30 and for the fact that I am concerned there is fluid overload st arting to develop. Blood pressures remained stable. Unfortunately IV access was difficult to obtain and port stopped working thus fluids recess as well as antibiotics and repeat lactate were delayed due to this. Stefan Shannon MD Past Med/Surg History Medical History (Updated 12/15/22 @ 18:34 by Stefan Shannon MD) Abscess in lung...no sx intervention at this time /hospitalized recently for pneumon [facility] d/c'd 11/19/22 O2 2 L Acute ITP hx Ambulatory dysfunction Anemia hx Anxiety Arthritis Bilat Knees & lower back Chronic kidney disease, stage 3 (moderate) Chronic steroid use CKD (chronic kidney disease) stage 3, GFR 30-59 ml/min Depression Dysphagia Dyspnea Esophageal stenosis Esophageal ulcer hx/radiation related GERD (gastroesophageal reflux disease) H/O idiopathic thrombocytopenic purpura (09/2020) treated w/ steroids History of blood transfusion History of COVID-19 ? 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 official dx Small cell lung cancer (04/21/20) current chemo tx/mets to brain hx radiation chest and brain Surgical History H/O arthroscopic knee surgery 1998 RIGHT/ 2010 LEFT H/O tubal ligation 1991 H/O: section x2 1987 & 1982 History of bronchoscopy (04/21/20) 04/21/2020 - with positive biopsy History of esophagogastroduodenoscopy (EGD) History of excision of pilonidal cyst 1987 History of open reduction and internal fixation (ORIF) procedure (07/2020) L ankle secondary to fracture History of tooth extraction molars Port-A-Cath in place (05/25/20) Insertion of Mediport Left Subclavian with Fluoroscopy Dr. Ramos 05/25/2020 power port S/P carpal tunnel release 1989's RT / 2014 LEFT S/P tonsillectomy Age 4 Family History Mother , Passed age 64 of pancreatic cancer Cancer Hypertension Father Hearing loss Grandmother (Maternal) , Passed age 79 of Stomach Cancer No problems noted. Uncle , Passed in 80's of Colorectal Cancer No problems noted. Brother No problems noted. Brother No problems noted. Sister No problems noted. Grandfather (Maternal) , Passed age 89 of Bladder Cancer No problems noted. Son No problems noted. Daughter Breast cancer Grandmother Cancer Grandfather Cancer Other No family history of adverse response to anesthesia No family history of allergies No family history of bleeding disorder Denies family history of Ovarian cancer Heart disease Lung cancer Asthma Social History Smoking Status: Former smoker Tobacco Type: Cigarettes Age Started Using Tobacco: 20; Age Quit Using Tobacco: 60; packs per day: 1; Cigarettes Per Day: 1 pack; Second Hand Exposure: No; Do You Dip or Chew Tobacco: No; Tobacco Cessation Education Requested by Patient: No Hx Alcohol Use: No Hx Substance Use: No Preferred Language: Wolof Communication Ability: Effective Communication Ability Comment: DIFFICULTY TALKING AT TIMES/METS TO BRAIN/STEFAN DOES PAT PHONE Visual Impairment: No Limitations Hearing Ability: Normal Geospatial Scientist Required: No Beliefs That Will Affect Care: None marital status: Current Living Situation: Spouse Current Living Situation Comment: Lives with Stefan in 1 story house, level entry in back current occupational status: employed 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 How many Children do You have: 0 Other Information That Helps Us Care for You: No Feels Safe at Home: Yes Safety Concerns: Feels Safe At This Time Childhood Exposure to Second-Hand Smoke: Yes caffeine: Yes (ice tea) during the past year weight has: remained stable Dental Care, Regularly: Yes Physical Activity Frequency: Does not Exercise Seatbelt Use: always Sunscreen Use: No Assistive Devices: Cane, Glasses, Walker and Wheelchair Allergies Allergies Allergy/AdvReac Type Severity Reaction Status Date / Time lisinopril AdvReac Unknown Cough Verified 12/15/22 10:12 Home Meds Home Medications Medication Instructions Recorded Confirmed pantoprazole 40 mg granules 40 mg PO BID 10/14/22 12/15/22 delayed-release for susp in packet venlafaxine 75 mg tablet 75 mg PO QAM 11/06/22 12/15/22 amlodipine 10 mg tablet 10 mg PO QAM 11/26/22 12/15/22 dexamethasone 2 mg tablet 4 mg PO BID 11/26/22 12/15/22 albuterol sulfate 90 mcg/actuation 2 inh inhalation Q6H PRN Shortness 12/15/22 12/15/22 aerosol inhaler Of Breath magnesium 200 mg tablet 400 mg PO DAILY 12/15/22 12/15/22 Previous Rx's Medication Instructions Recorded pregabalin 150 mg capsule 150 mg PO BID #60 caps 04/02/22 meclizine 25 mg tablet 25 mg PO Q6H PRN dizziness #60 tabs 04/30/22 ondansetron HCl 4 mg tablet 4 mg PO Q8H PRN nausea and 10/14/22 vomiting #30 tabs benzonatate 100 mg capsule 100 mg PO TID PRN cough #30 caps 11/26/22 lorazepam 0.5 mg tablet 0.5 - 1 mg PO Q8H PRN anxiety #30 12/02/22 tabs Results & Data (ED) Vital Signs Vital Signs - 24 hr 12/15/22 06:33 12/15/22 06:33 12/15/22 06:33 Temperature 36.6 C Temperature Source Oral Pulse Rate 100 H Pulse Rate [Right Finger] Pulse Rate from SpO2 Sensor Respiratory Rate 19 Respiratory Effort / Characteristics Non-Labored Labored Respiratory Depth Normal Deep Blood Pressure 124/75 Blood Pressure [Right Arm] Blood Pressure Mean 91 Blood Pressure Mean [Right Arm] Pulse Oximetry 91 Oxygen Delivery Method Nasal Cannula Nasal Cannula Oxygen Flow Rate 2 2 Sepsis Recent Fever Within 48 Hours No Sepsis New/Unexplained Change in Mental Status No Sepsis Action Taken by Nursing No Action Required Oxygen Flow Rate - Titration Pulse Oximetry Post Tiitration 12/15/22 06:33 12/15/22 06:41 12/15/22 06:36 Temperature Temperature Source Oral Pulse Rate 97 H Pulse Rate [Right Finger] Pulse Rate from SpO2 Sensor Respiratory Rate Respiratory Effort / Characteristics Non-Labored Respiratory Depth Normal Blood Pressure Blood Pressure [Right Arm] Blood Pressure Mean Blood Pressure Mean [Right Arm] Pulse Oximetry 92 Oxygen Delivery Method Nasal Cannula Oxygen Flow Rate 2 Sepsis Recent Fever Within 48 Hours Sepsis New/Unexplained Change in Mental Status Sepsis Action Taken by Nursing Oxygen Flow Rate - Titration Pulse Oximetry Post Tiitration 12/15/22 08:00 12/15/22 09:28 12/15/22 09:32 Temperature Temperature Source Pulse Rate Pulse Rate [Right Finger] 84 94 H Pulse Rate from SpO2 Sensor Respiratory Rate 16 16 Respiratory Effort / Characteristics Non-Labored Non-Labored Respiratory Depth Normal Normal Blood Pressure Blood Pressure [Right Arm] 130/69 124/75 Blood Pressure Mean Blood Pressure Mean [Right Arm] 89 91 Pulse Oximetry 93 90 Oxygen Delivery Method Nasal Cannula Nasal Cannula Nasal Cannula Oxygen Flow Rate 2 3 3 Sepsis Recent Fever Within 48 Hours Sepsis New/Unexplained Change in Mental Status Sepsis Action Taken by Nursing Oxygen Flow Rate - Titration Pulse Oximetry Post Tiitration 12/15/22 09:32 12/15/22 10:53 12/15/22 12:17 Temperature Temperature Source Pulse Rate 81 Pulse Rate [Right Finger] 90 Pulse Rate from SpO2 Sensor Respiratory Rate 16 Respiratory Effort / Characteristics Respiratory Depth Blood Pressure Blood Pressure [Right Arm] 135/86 Blood Pressure Mean Blood Pressure Mean [Right Arm] 102 Pulse Oximetry 90 92 Oxygen Delivery Method Nasal Cannula Nasal Cannula Oxygen Flow Rate 3 3 Sepsis Recent Fever Within 48 Hours Sepsis New/Unexplained Change in Mental Status Sepsis Action Taken by Nursing Oxygen Flow Rate - Titration 3 Pulse Oximetry Post Tiitration 92 12/15/22 10:00 12/15/22 10:00 12/15/22 10:10 Temperature Temperature Source Pulse Rate 83 81 Pulse Rate [Right Finger] Pulse Rate from SpO2 Sensor 83 82 Respiratory Rate 13 16 Respiratory Effort / Characteristics Respiratory Depth Blood Pressure 124/79 Blood Pressure [Right Arm] Blood Pressure Mean 94 Blood Pressure Mean [Right Arm] Pulse Oximetry 92 92 Oxygen Delivery Method Oxygen Flow Rate Sepsis Recent Fever Within 48 Hours Sepsis New/Unexplained Change in Mental Status Sepsis Action Taken by Nursing Oxygen Flow Rate - Titration Pulse Oximetry Post Tiitration 12/15/22 10:20 12/15/22 10:30 12/15/22 10:30 Temperature Temperature Source Pulse Rate 82 84 Pulse Rate [Right Finger] Pulse Rate from SpO2 Sensor 82 86 Respiratory Rate 15 20 Respiratory Effort / Characteristics Respiratory Depth Blood Pressure 150/79 H Blood Pressure [Right Arm] Blood Pressure Mean 102 Blood Pressure Mean [Right Arm] Pulse Oximetry 92 87 L Oxygen Delivery Method Oxygen Flow Rate Sepsis Recent Fever Within 48 Hours Sepsis New/Unexplained Change in Mental Status Sepsis Action Taken by Nursing Oxygen Flow Rate - Titration Pulse Oximetry Post Tiitration 12/15/22 10:40 12/15/22 10:42 12/15/22 10:42 Temperature Temperature Source Pulse Rate 83 85 Pulse Rate [Right Finger] Pulse Rate from SpO2 Sensor 83 85 Respiratory Rate 13 14 Respiratory Effort / Characteristics Respiratory Depth Blood Pressure 135/85 Blood Pressure [Right Arm] Blood Pressure Mean 101 Blood Pressure Mean [Right Arm] Pulse Oximetry 98 96 Oxygen Delivery Method Oxygen Flow Rate Sepsis Recent Fever Within 48 Hours Sepsis New/Unexplained Change in Mental Status Sepsis Action Taken by Nursing Oxygen Flow Rate - Titration Pulse Oximetry Post Tiitration 12/15/22 10:50 12/15/22 11:00 12/15/22 11:00 Temperature Temperature Source Pulse Rate 82 89 Pulse Rate [Right Finger] Pulse Rate from SpO2 Sensor 82 89 Respiratory Rate 12 14 Respiratory Effort / Characteristics Respiratory Depth Blood Pressure 129/84 Blood Pressure [Right Arm] Blood Pressure Mean 99 Blood Pressure Mean [Right Arm] Pulse Oximetry 94 86 L Oxygen Delivery Method Oxygen Flow Rate Sepsis Recent Fever Within 48 Hours Sepsis New/Unexplained Change in Mental Status Sepsis Action Taken by Nursing Oxygen Flow Rate - Titration Pulse Oximetry Post Tiitration 12/15/22 11:14 12/15/22 11:20 12/15/22 11:23 Temperature Temperature Source Pulse Rate 93 H 100 H Pulse Rate [Right Finger] Pulse Rate from SpO2 Sensor Respiratory Rate 14 18 Respiratory Effort / Characteristics Respiratory Depth Blood Pressure 150/88 H Blood Pressure [Right Arm] Blood Pressure Mean 108 Blood Pressure Mean [Right Arm] Pulse Oximetry Oxygen Delivery Method Oxygen Flow Rate Sepsis Recent Fever Within 48 Hours Sepsis New/Unexplained Change in Mental Status Sepsis Action Taken by Nursing Oxygen Flow Rate - Titration Pulse Oximetry Post Tiitration 12/15/22 11:23 12/15/22 11:30 12/15/22 11:40 Temperature Temperature Source Pulse Rate 89 88 86 Pulse Rate [Right Finger] Pulse Rate from SpO2 Sensor 85 86 Respiratory Rate 16 13 13 Respiratory Effort / Characteristics Respiratory Depth Blood Pressure Blood Pressure [Right Arm] Blood Pressure Mean Blood Pressure Mean [Right Arm] Pulse Oximetry 95 91 Oxygen Delivery Method Oxygen Flow Rate Sepsis Recent Fever Within 48 Hours Sepsis New/Unexplained Change in Mental Status Sepsis Action Taken by Nursing Oxygen Flow Rate - Titration Pulse Oximetry Post Tiitration 12/15/22 11:50 12/15/22 12:00 12/15/22 12:00 Temperature Temperature Source Pulse Rate 89 85 Pulse Rate [Right Finger] Pulse Rate from SpO2 Sensor 90 85 Respiratory Rate 18 12 Respiratory Effort / Characteristics Respiratory Depth Blood Pressure 135/86 Blood Pressure [Right Arm] Blood Pressure Mean 102 Blood Pressure Mean [Right Arm] Pulse Oximetry 91 94 Oxygen Delivery Method Oxygen Flow Rate Sepsis Recent Fever Within 48 Hours Sepsis New/Unexplained Change in Mental Status Sepsis Action Taken by Nursing Oxygen Flow Rate - Titration Pulse Oximetry Post Tiitration 12/15/22 12:10 12/15/22 12:20 12/15/22 12:30 Temperature Temperature Source Pulse Rate 93 H 84 79 Pulse Rate [Right Finger] Pulse Rate from SpO2 Sensor 94 H 85 79 Respiratory Rate 18 19 13 Respiratory Effort / Characteristics Respiratory Depth Blood Pressure Blood Pressure [Right Arm] Blood Pressure Mean Blood Pressure Mean [Right Arm] Pulse Oximetry 91 95 92 Oxygen Delivery Method Oxygen Flow Rate Sepsis Recent Fever Within 48 Hours Sepsis New/Unexplained Change in Mental Status Sepsis Action Taken by Nursing Oxygen Flow Rate - Titration Pulse Oximetry Post Tiitration 12/15/22 12:40 12/15/22 12:50 12/15/22 13:00 Temperature Temperature Source Pulse Rate 82 85 Pulse Rate [Right Finger] Pulse Rate from SpO2 Sensor 83 85 Respiratory Rate 15 21 Respiratory Effort / Characteristics Respiratory Depth Blood Pressure 130/94 Blood Pressure [Right Arm] Blood Pressure Mean 106 Blood Pressure Mean [Right Arm] Pulse Oximetry 96 94 Oxygen Delivery Method Oxygen Flow Rate Sepsis Recent Fever Within 48 Hours Sepsis New/Unexplained Change in Mental Status Sepsis Action Taken by Nursing Oxygen Flow Rate - Titration Pulse Oximetry Post Tiitration 12/15/22 13:00 12/15/22 13:10 12/15/22 13:20 Temperature Temperature Source Pulse Rate 83 85 84 Pulse Rate [Right Finger] Pulse Rate from SpO2 Sensor 83 84 84 Respiratory Rate 13 12 16 Respiratory Effort / Characteristics Respiratory Depth Blood Pressure Blood Pressure [Right Arm] Blood Pressure Mean Blood Pressure Mean [Right Arm] Pulse Oximetry 94 91 94 Oxygen Delivery Method Oxygen Flow Rate Sepsis Recent Fever Within 48 Hours Sepsis New/Unexplained Change in Mental Status Sepsis Action Taken by Nursing Oxygen Flow Rate - Titration Pulse Oximetry Post Tiitration Laboratory Data 12/15/22 06:40 12/15/22 06:40 Lab Results 12/15/22 12/15/22 12/15/22 Range/Units 06:40 06:40 06:40 WBC 9.08 (4.8-10.8) K/ul RBC 3.16 L (4.20-5.40) M/uL Hgb 10.7 L (12.0-16.0) g/dl Hct 31.7 L (37.0-47.0) % MCV 100.3 H (80.0-100.0) fL MCH 33.9 (25.0-34.0) pg MCHC 33.8 (32.0-36.0) g/dL RDW Std Deviation 70.6 H (36.4-46.3) fL RDW Coeff of Sebastián 19.1 H (11.5-14.5) % Plt Count 149 (130-400) K/uL MPV 10.8 (9.4-12.4) fL Immature Gran % (Auto) 5.7 % Neut % (Auto) 83.3 % Lymph % (Auto) 4.5 % Toole % (Auto) 6.1 % Eos % (Auto) 0.0 % Baso % (Auto) 0.4 % Neut # (Auto) 7.56 H (1.40-6.50) K/uL Lymph # (Auto) 0.41 L (1.2-3.4) K/uL Toole # (Auto) 0.55 (0.11-0.59) K/uL Eos # (Auto) 0.00 (0-0.50) K/uL Baso # (Auto) 0.04 (0-0.2) K/uL Immature Gran # (Auto) 0.52 H (0.01-0.20) K/uL Absolute Nucleated RBC 0.03 (0-0.12) K/uL Nucleated RBC % (auto) 0.3 % Polychromasia 1+ Tear Drop Cells 1+ PT 9.8 (9.0-12.0) Seconds INR 0.9 (0.9-1.1) APTT 21.4 (21.0-31.0) Seconds PTT Ratio 0.8 Sodium 138 (136-145) mmol/L Potassium 4.3 (3.5-5.1) mmol/L Chloride 101 (98-107) mmol/L Carbon Dioxide 26 (21-32) mmol/L Anion Gap 11 (3-11) BUN 37 H (6-23) mg/dl Creatinine 1.09 (0.6-1.2) mg/dl Est Cr Clr Drug Dosing 51.8 ml/min Est GFR ( Amer) 63.9 ml/min Est GFR (Non-Af Amer) 55.1 ml/min BUN/Creatinine Ratio 33.9 H (10-20) Glucose 162 H (70-99(Fasting)) mg/dl Lactate (0.4-2.0) mmol/L Calcium 8.9 (8.6-10.3) mg/dl Magnesium 2.0 (1.7-2.4) mg/dl Total Bilirubin 0.9 (0.2-1.0) mg/dl AST 17 (13-39) U/L ALT 27 (7-52) U/L Alkaline Phosphatase 93 (34-104) U/L Troponin I High Sens 16.0 H (0-14) pg/ml Total Protein 6.3 (6.0-8.3) gm/dl Albumin 3.2 L (3.4-5.0) gm/dl Globulin 3.1 (2.5-4.0) gm/dl Albumin/Globulin Ratio 1.0 (0.9-2) Procalcitonin (0-0.5) ng/ml Nasal Screen MRSA (PCR) (Negative) SARS-CoV-2 (PCR) (Negative) Influenza Type A (PCR) (Neg) Influenza Type B (PCR) (Neg) RSV (RT-PCR) (Neg) 12/15/22 12/15/22 12/15/22 Range/Units 06:40 06:40 07:24 WBC (4.8-10.8) K/ul RBC (4.20-5.40) M/uL Hgb (12.0-16.0) g/dl Hct (37.0-47.0) % MCV (80.0-100.0) fL MCH (25.0-34.0) pg MCHC (32.0-36.0) g/dL RDW Std Deviation (36.4-46.3) fL RDW Coeff of Sebastián (11.5-14.5) % Plt Count (130-400) K/uL MPV (9.4-12.4) fL Immature Gran % (Auto) % Neut % (Auto) % Lymph % (Auto) % Toole % (Auto) % Eos % (Auto) % Baso % (Auto) % Neut # (Auto) (1.40-6.50) K/uL Lymph # (Auto) (1.2-3.4) K/uL Toole # (Auto) (0.11-0.59) K/uL Eos # (Auto) (0-0.50) K/uL Baso # (Auto) (0-0.2) K/uL Immature Gran # (Auto) (0.01-0.20) K/uL Absolute Nucleated RBC (0-0.12) K/uL Nucleated RBC % (auto) % Polychromasia Tear Drop Cells PT (9.0-12.0) Seconds INR (0.9-1.1) APTT (21.0-31.0) Seconds PTT Ratio Sodium (136-145) mmol/L Potassium (3.5-5.1) mmol/L Chloride (98-107) mmol/L Carbon Dioxide (21-32) mmol/L Anion Gap (3-11) BUN (6-23) mg/dl Creatinine (0.6-1.2) mg/dl Est Cr Clr Drug Dosing ml/min Est GFR ( Amer) ml/min Est GFR (Non-Af Amer) ml/min BUN/Creatinine Ratio (10-20) Glucose (70-99(Fasting)) mg/dl Lactate 2.8 H* (0.4-2.0) mmol/L Calcium (8.6-10.3) mg/dl Magnesium (1.7-2.4) mg/dl Total Bilirubin (0.2-1.0) mg/dl AST (13-39) U/L ALT (7-52) U/L Alkaline Phosphatase (34-104) U/L Troponin I High Sens (0-14) pg/ml Total Protein (6.0-8.3) gm/dl Albumin (3.4-5.0) gm/dl Globulin (2.5-4.0) gm/dl Albumin/Globulin Ratio (0.9-2) Procalcitonin 0.19 (0-0.5) ng/ml Nasal Screen MRSA (PCR) (Negative) SARS-CoV-2 (PCR) NEGATIVE (Negative) Influenza Type A (PCR) Negative (Neg) Influenza Type B (PCR) Negative (Neg) RSV (RT-PCR) Negative (Neg) 12/15/22 12/15/22 Range/Units 12:26 12:33 WBC (4.8-10.8) K/ul RBC (4.20-5.40) M/uL Hgb (12.0-16.0) g/dl Hct (37.0-47.0) % MCV (80.0-100.0) fL MCH (25.0-34.0) pg MCHC (32.0-36.0) g/dL RDW Std Deviation (36.4-46.3) fL RDW Coeff of Sebastián (11.5-14.5) % Plt Count (130-400) K/uL MPV (9.4-12.4) fL Immature Gran % (Auto) % Neut % (Auto) % Lymph % (Auto) % Toole % (Auto) % Eos % (Auto) % Baso % (Auto) % Neut # (Auto) (1.40-6.50) K/uL Lymph # (Auto) (1.2-3.4) K/uL Toole # (Auto) (0.11-0.59) K/uL Eos # (Auto) (0-0.50) K/uL Baso # (Auto) (0-0.2) K/uL Immature Gran # (Auto) (0.01-0.20) K/uL Absolute Nucleated RBC (0-0.12) K/uL Nucleated RBC % (auto) % Polychromasia Tear Drop Cells PT (9.0-12.0) Seconds INR (0.9-1.1) APTT (21.0-31.0) Seconds PTT Ratio Sodium (136-145) mmol/L Potassium (3.5-5.1) mmol/L Chloride (98-107) mmol/L Carbon Dioxide (21-32) mmol/L Anion Gap (3-11) BUN (6-23) mg/dl Creatinine (0.6-1.2) mg/dl Est Cr Clr Drug Dosing ml/min Est GFR ( Amer) ml/min Est GFR (Non-Af Amer) ml/min BUN/Creatinine Ratio (10-20) Glucose (70-99(Fasting)) mg/dl Lactate 3.0 H* (0.4-2.0) mmol/L Calcium (8.6-10.3) mg/dl Magnesium (1.7-2.4) mg/dl Total Bilirubin (0.2-1.0) mg/dl AST (13-39) U/L ALT (7-52) U/L Alkaline Phosphatase (34-104) U/L Troponin I High Sens (0-14) pg/ml Total Protein (6.0-8.3) gm/dl Albumin (3.4-5.0) gm/dl Globulin (2.5-4.0) gm/dl Albumin/Globulin Ratio (0.9-2) Procalcitonin (0-0.5) ng/ml Nasal Screen MRSA (PCR) Negative (Negative) SARS-CoV-2 (PCR) (Negative) Influenza Type A (PCR) (Neg) Influenza Type B (PCR) (Neg) RSV (RT-PCR) (Neg) Administered Medications Dexamethasone (Dexamethasone 4 Mg Tab) 4 mg PO BID DELANEY Stop: 01/14/23 12:59 Last Admin: 12/15/22 13:57 Dose: 4 mg Documented By: SANDY Heparin Sodium (Porcine) (Heparin Sod 5,000 Unit/0.5 Ml Vial) 5,000 units SQ Q12 DELANEY Stop: 01/14/23 13:14 Last Admin: 12/15/22 13:57 Dose: 5,000 units Documented By: SANDY Sodium Chloride (Nss 1000ml) 1,000 mls @ 75 mls/hr IV .[id number] DELANEY Stop: 01/14/23 09:59 Last Admin: 12/15/22 15:22 Dose: 75 mls/hr Documented By: LORI Ampicillin Sodium/Sulbactam Sodium 3,000 mg/ Sodium Chloride 108 mls @ 200 mls/hr IV Q6H DELANEY; Protocol Stop: 12/22/22 16:44 Last Infusion: 12/15/22 17:54 Dose: 0 mls/hr Documented By: Admin: 12/15/22 17:21 Dose: 200 mls/hr Documented By: LISA Morphine Sulfate (Morphine Sulfate 2 Mg/Ml Carp) 2 mg IV Q2H PRN PRN Reason: Chest Pain Stop: 12/29/22 09:59 Last Admin: 12/15/22 15:28 Dose: 2 mg Documented By: LORI Pantoprazole Sodium (Pantoprazole 40 Mg Tab) 40 mg PO BID DELANEY Stop: 01/14/23 13:14 Last Admin: 12/15/22 13:57 Dose: 40 mg Documented By: SANDY Venlafaxine HCl (Venlafaxine Hcl 37.5 Mg Tab) 75 mg PO QAM DELANEY Stop: 01/14/23 12:59 Last Admin: 12/15/22 13:57 Dose: 75 mg Documented By: SANDY Discontinued Medications Hydromorphone HCl (Hydromorphone Inj 0.5 Mg/0.5 Ml Syr) 0.5 mg IV NOW STA Stop: 12/15/22 07:14 Last Admin: 12/15/22 07:18 Dose: 0.5 mg Documented By: EMIL Sodium Chloride (Nss) 500 mls @ 999 mls/hr IV .Q31M ONE Stop: 12/15/22 07:44 Last Infusion: 12/15/22 07:49 Dose: 0 mls/hr Documented By: Admin: 12/15/22 07:18 Dose: 999 mls/hr Documented By: EMIL Ampicillin Sodium/Sulbactam Sodium 3,000 mg/ Sodium Chloride 108 mls @ 200 mls/hr IV NOW STA; Protocol Stop: 12/15/22 08:23 Last Infusion: 12/15/22 10:43 Dose: 0 mls/hr Documented By: Admin: 12/15/22 09:36 Dose: 200 mls/hr Documented By: EMIL Sodium Chloride (Nss 1000ml) 1,000 mls @ 999 mls/hr IV .Q1H1M ONE Stop: 12/15/22 08:51 Last Infusion: 12/15/22 10:44 Dose: 0 mls/hr Documented By: Admin: 12/15/22 09:32 Dose: 999 mls/hr Documented By: EMIL Ioversol (Optiray 350 100ml) 90 ml IV ONCE ONE Stop: 12/15/22 11:12 Last Admin: 12/15/22 11:12 Dose: 90 ml Documented By: ELLIS Morphine Sulfate (Morphine Sulfate 2 Mg/Ml Carp) Confirm Administered Dose 2 mg .ROUTE .STK-MED ONE Stop: 12/15/22 12:48 Last Admin: 12/15/22 12:50 Dose: 2 mg Documented By: SANDY Imaging Data Radiologist's Impression: Chest X-Ray 12/15/22 06:38 XR chest 1V not portable CLINICAL HISTORY: Chest pain, nonspecific TECHNIQUE: Single frontal radiograph of the chest was obtained. Comparison: Comparison is made to chest radiograph 11/07/[address] chest 11/18/2022 FINDINGS: A port catheter is seen. The cardiomediastinal silhouette is obscured. Opacities in the left lung compatible with left upper lobe atelectasis. Superimposed aspiration/pneumonia cannot be excluded. No evidence of pleural effusion or pneumothorax. IMPRESSION: Left lung atelectasis, likely of the left upper lobe, is again seen and likely increased from prior exam. Superimposed left aspiration/pneumonia cannot be entirely excluded. ACT 112: Negative or not required by law. Electronically signed by: Silvino Raphael M.D. 12/15/2022 8:[address] 12/15/22 10:12 CT chest diagnostic w con CLINICAL HISTORY: lung abscess TECHNIQUE: Multidetector row helical CT of the chest was performed with intravenous contrast. Coronal and sagittal reformations were obtained. Automated dose lowering techniques and/or adjustment according to patient size were utilized for this exam. CT DOSE: 284.13 mGy.cm Comparison: Comparison is made to CT chest 11/18/2022 FINDINGS: Lungs and pleura: Redemonstration of a gas and fluid collection in the left lung measuring approximately 81 x 42 mm, increased from prior exam with increased fluid content is decreased gaseous content. There is collapse of the right upper lung. There is bibasilar atelectasis with small left pleural effusion. Heart and pericardium: There is a small pericardial effusion. Vessels: Unremarkable. Mediastinum and grace: Unremarkable. Chest wall and lower neck: Unremarkable. Abdomen: Unremarkable. Bones: Degenerative changes in the thoracic spine. IMPRESSION: 1. Left upper lung fluid collection has increased in size from prior exam. Findings are concerning for enlarging pulmonary abscess. Empyema is considered less likely. 2. Collapse of the left upper lung is again noted. 3. Small left pleural effusion, unchanged from prior exam, bibasilar atelectasis is noted. ACT 112: Negative or not required by law. Electronically signed by: Silvino Raphael M.D. 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
[2022-12-15 06:54] LABS: Hematocrit (blood only) 31.7 % (37.0-47.0); Hemoglobin 10.7 g/dl (12.0-16.0); Mean Corpuscular Hemoglobin 33.9 pg (25.0-34.0); Mean Corpuscular Hgb Conc 33.8 g/dL (32.0-36.0); Mean Corpuscular Volume 100.3 fL (80.0-100.0); Mean Platelet Volume 10.8 fL (9.4-12.4); Nucleated RBC # (auto) 0.03 K/uL (0-0.12); Nucleated RBC % (auto) 0.3 %; Platelet Count 149 K/uL (130-400); RDW Coefficient of Variation 19.1 % (11.5-14.5); RDW Standard Deviation 70.6 fL (36.4-46.3); Red Blood Count 3.16 M/uL (4.20-5.40); White Blood Count 9.08 K/ul (4.8-10.8)
[2022-12-15 07:12] LABS: Albumin Level 3.2 gm/dl (3.4-5.0); BUN Creatinine Ratio 33.9 (10-20); Bilirubin,Total 0.9 mg/dl (0.2-1.0); Calcium 8.9 mg/dl (8.6-10.3); Creatinine Clr Calc Pharmacy 51.8 ml/min; Est GFR (African American) 63.9 ml/min; Est GFR (Non-African American) 55.1 ml/min; Globulin 3.1 gm/dl (2.5-4.0); Potassium 4.3 mmol/L (3.5-5.1); Total Protein 6.3 gm/dl (6.0-8.3)
[2022-12-15] MEDS ORDERED: HYDROmorphone INJ 0.5 MG/0.5 ML SYR IV STA (07:13)
[2022-12-15 07:14] LABS: Basophils # (auto) 0.04 K/uL (0-0.2); Basophils % (auto) 0.4 %; Immature Granulocytes # (auto) 0.52 K/uL (0.01-0.20); Immature Granulocytes % (auto) 5.7 %; Lymphocytes # (auto) 0.41 K/uL (1.2-3.4); Lymphocytes % (auto) 4.5 %; Monocytes # (auto) 0.55 K/uL (0.11-0.59); Monocytes % (auto) 6.1 %; Neutrophils # (auto) 7.56 K/uL (1.40-6.50); Neutrophils % (auto) 83.3 %; Polychromasia 1+; Tear Drop Cells 1+
[2022-12-15] MEDS ORDERED: SODIUM CHLORIDE 0.9% 500 ML IV ONE (07:14)
[2022-12-15 07:29] LABS: INR 0.9 (0.9-1.1); Partial Thromboplastin Ratio 0.8; Partial Thromboplastin Time 21.4 Seconds (21.0-31.0); Prothrombin Time 9.8 Seconds (9.0-12.0)
[2022-12-15 07:41] LABS: Influenza A virus by PCR Negative (Neg); Influenza B virus by PCR Negative (Neg); RSV by PCR Negative (Neg); SARS CoV2 RNA(COVID-19) Ceph NEGATIVE (Negative)
[2022-12-15] MEDS ORDERED: SODIUM CHLORIDE 0.9% 1000ML 1,000 ML IV ONE (07:51)
[2022-12-15] MEDS ORDERED: AMPICILLIN/SULBACTAM SOD 3,000 MG in 0.9 % SODIUM CHLORIDE 100 ML IV STA (07:51)
--- NOTE | 2022-12-15 08:32 | XRay Report ---
XR chest 1V not portable CLINICAL HISTORY: Chest pain, nonspecific TECHNIQUE: Single frontal radiograph of the chest was obtained. Comparison: Comparison is made to chest radiograph 11/07/[address] chest 11/18/2022 FINDINGS: A port catheter is seen. The cardiomediastinal silhouette is obscured. Opacities in the left lung com patible with left upper lobe atelectasis. Superimposed aspiration/pneumonia cannot be excluded. No ev idence of pleural effusion or pneumothorax. IMPRESSION: Left lung atelectasis, likely of the left upper lobe, is again seen and likely increased from prior e xam. Superimposed left aspiration/pneumonia cannot be entirely excluded. ACT 112: Negative or not required by law. Electronically signed by: Silvino Raphael M.D. 12/15/2022 8:30 AM
[2022-12-15] MEDS ORDERED: ACETAMINOPHEN 325 MG TAB PO PRN (10:00)
--- NOTE | 2022-12-15 10:17 | Pulmonary Consultation ---
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: Plan CT chest 12/15/2022 personally reviewed: Loculated left upper lobe pleural fluid with air-fluid level, there is also adjacent consolidative process Small bilateral pleural effusion No significant mediastinal lymphadenopathy -- Left upper lobe loculated pleural fluid with air-fluid level Seems to be empyema rather than loculated pleural effusion COVID-19, influenza A/B, RSV all negative Gold QuantiFERON was intermediate on 11/13/2022 Galactomannan negative, cryptococcal antigen negative, histoplasma antigen negative, beta D glucan negative on 11/13/2022 -- Witness choking episode We will keep the patient n.p.o. 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 It there is loculated air-fluid level as well in the left upper side. Whenever there is a pulmonary abscess which is not responding to antibiotics which will be in patient's case, VATS would be the next step. If due to patient's condition and advanced stage small cell lung cancer if that is not pursued then IR guided drainage of the pulmonary abscess could be thought of. Keeping in mind that there is high risk of bronchopulmonary fistula through this. Would recommend infectious disease consult, also have a talk with CT surgery at [place] or [place] to see if they have any other thought process and if they are willing to take the patient for VATS Meanwhile continue with antibiotic with anaerobic coverage. I doubt that antibiotics reaching the abscess. Case was discussed with primary team Pulmonary will continue to follow Please note the above document was generated using voice recognition software. It may contain grammatical, syntax or spelling errors.Any formal questions or concerns about the content, text or information contained within the body of this dictation should be directly addressed to the provider for clarification. History of Present Illness History of Present Illness 62-year-old female presented to the hospital with chest pain and shortness of breath Past medical history: Stage IV small cell lung cancer, GERD Patient was recently hospitalized end of October for cavitary lesion/lung abscess as well as possible empyema At the time of examination patient was saturating 92-93% on 5 L. As soon as I entered the room patient had an episode of choking/aspiration. She started to desaturate. I went up the oxygen to 10 L and helped her sit up and cough. By the end of the interrogation she was back to 6 L oxygen saturating 92-93%. Patient's was also in the room at the time of examination Please make sure patient is a poor historian, history was obtained from Patient has been having issues with left-sided chest pain and shortness of which has been going for a while. It got worse since last couple of days especially last night that is how she ended up in the hospital. Denies any hemoptysis. Does complain of cough which is mostly dry. No night sweats Denies any exposure to anybody with TB. 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 Occasional headache. Denies any blurry vision. Has been afebrile Allergies Allergy/AdvReac Type Severity Reaction Status Date / Time lisinopril AdvReac Unknown Cough Verified 12/15/22 10:12 Home Medications Medication Instructions Recorded Confirmed Type pregabalin 150 mg capsule 150 mg PO BID #60 caps 04/02/22 12/15/22 Rx meclizine 25 mg tablet 25 mg PO Q6H PRN dizziness #60 tabs 04/30/22 12/15/22 Rx ondansetron HCl 4 mg tablet 4 mg PO Q8H PRN nausea and 10/14/22 12/15/22 Rx vomiting #30 tabs pantoprazole 40 mg granules 40 mg PO BID 10/14/22 12/15/22 History delayed-release for susp in packet venlafaxine 75 mg tablet 75 mg PO QAM 11/06/22 12/15/22 History amlodipine 10 mg tablet 10 mg PO QAM 11/26/22 12/15/22 History benzonatate 100 mg capsule 100 mg PO TID PRN cough #30 caps 11/26/22 12/15/22 Rx dexamethasone 2 mg tablet 4 mg PO BID 11/26/22 12/15/22 History lorazepam 0.5 mg tablet 0.5 - 1 mg PO Q8H PRN anxiety #30 12/02/22 12/15/22 Rx tabs albuterol sulfate 90 mcg/actuation 2 inh inhalation Q6H PRN Shortness 12/15/22 12/15/22 History aerosol inhaler Of Breath magnesium 200 mg tablet 400 mg PO DAILY 12/15/22 12/15/22 History Patient History Medical History (Updated 12/15/22 @ 17:56 by Yamilex Alejandra MD, [facility]) Abscess in lung...no sx intervention at this time /hospitalized recently for pneumonia [facility] d/c'd 11/19/22 O2 2 L Acute ITP hx Ambulatory dysfunction Anemia hx Anxiety Arthritis Bilat Knees & lower back Chronic kidney disease, stage 3 (moderate) Chronic steroid use CKD (chronic kidney disease) stage 3, GFR 30-59 ml/min Depression Dysphagia Dyspnea Esophageal stenosis Esophageal ulcer hx/radiation related GERD (gastroesophageal reflux disease) H/O idiopathic thrombocytopenic purpura (09/2020) treated w/ steroids History of blood transfusion History of COVID- ? 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 official dx Small cell lung cancer (04/21/20) current chemo tx/mets to brain hx radiation chest and brain Surgical History H/O arthroscopic knee surgery 1998 RIGHT/ 2010 LEFT H/O tubal ligation 1991 H/O: section x2 1987 & 1982 History of bronchoscopy (04/21/20) 04/21/2020 - with positive biopsy History of esophagogastroduodenoscopy (EGD) History of excision of pilonidal cyst 1987 History of open reduction and internal fixation (ORIF) procedure (07/2020) L ankle secondary to fracture History of tooth extraction molars Port-A-Cath in place (05/25/20) Insertion of Mediport Left Subclavian with Fluoroscopy Dr. Ramos 05/25/2020 power port S/P carpal tunnel release 1989'2014 LEFT S/P tonsillectomy Age 4 Family History Mother , Passed age 64 of pancreatic cancer Cancer Hypertension Father Hearing loss Grandmother (Maternal) , Passed age 79 of Stomach Cancer No problems noted. Uncle , Passed in 80's of Colorectal Cancer No problems noted. Brother No problems noted. Brother No problems noted. Sister No problems noted. Grandfather (Maternal) , Passed age 89 of Bladder Cancer No problems noted. Son No problems noted. Daughter Breast cancer Grandmother Cancer Grandfather Cancer Other No family history of adverse response to anesthesia No family history of allergies No family history of bleeding disorder Denies family history of Ovarian cancer Heart disease Lung cancer Asthma Social History Smoking Status: Former smoker Tobacco Type: Cigarettes Age Started Using Tobacco: 20; Age Quit Using Tobacco: 60; packs per day: 1; Cigarettes Per Day: 1 pack; Second Hand Exposure: No; Do You Dip or Chew Tobacco: No; Tobacco Cessation Education Requested by Patient: No Hx Alcohol Use: No Hx Substance Use: No Preferred Language: Swedish Communication Ability: Effective Communication Ability Comment: DIFFICULTY TALKING AT TIMES/METS TO BRAIN/STEFAN DOES PAT PHONE Visual Impairment: No Limitations Hearing Ability: Normal Sand Mixer Required: No Beliefs That Will Affect Care: None marital status: Current Living Situation: Spouse Current Living Situation Comment: Lives with Stefan in 1 story house, level entry in back current occupational status: employed 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 How many Children do You have: 0 Other Information That Helps Us Care for You: No Feels Safe at Home: Yes Safety Concerns: Feels Safe At This Time Childhood Exposure to Second-Hand Smoke: Yes caffeine: Yes (ice tea) during the past year weight has: remained stable Dental Care, Regularly: Yes Physical Activity Frequency: Does not Exercise Seatbelt Use: always Sunscreen Use: No Assistive Devices: Cane, Glasses, Walker and Wheelchair Review of Systems Review of Systems: All systems reviewed & are unremarkable except as noted in HPI & below Physical Exam Physical Exam: Constitutional: No acute distress HEENT: EOMI, PERRLA, thick neck Respiratory system: Decreased entry bilaterally, no wheeze, no rhonchi, positive crackles bilateral lower lobes CVS: S1-S2 positive, no murmurs or gallops, distant heart sounds Abdomen: Soft, nontender, nondistended, positive bowel sounds x4, obese Extremities: +2 pulses bilaterally radialis/ dorsalis pedis, no cyanosis, no edema Neuro: Awake alert oriented x3 Psych: Normal mood and affect G/U: No [place] Skin: no rashes, warm and dry Lymphatic: no cervical or axillary lymphadenopathy Results & Data Results & Data Vital Signs (Past 12 Hours) Vital Signs Temp Pulse Pulse Resp BP BP Pulse Ox 12/15/22 09:32 90 12/15/22 09:32 12/15/22 09:28 94 H 16 124/75 90 12/15/22 08:00 84 16 130/69 93 12/15/22 06:36 97 H 12/15/22 06:41 92 12/15/22 06:33 12/15/22 06:33 36.6 C 100 H 19 124/75 91 O2 Del Method O2 Flow Rate 12/15/22 09:32 Nasal Cannula 3 12/15/22 09:32 Nasal Cannula 3 12/15/22 09:28 Nasal Cannula 3 12/15/22 08:00 Nasal Cannula 2 12/15/22 06:36 12/15/22 06:41 Nasal Cannula 2 12/15/22 06:33 Nasal Cannula 2 12/15/22 06:33 Nasal Cannula 2 Laboratory Results 12/15/22 06:40 12/15/22 06:40 PG Care Time/CCT Total # of Minutes Spent Total Time Spent with Patient: Total time spent is greater than 50% in coordination of care (as documented) at patient's floor/unit and/or counseling patient: Coding Level of Care Code 78145 INT INP/OBS CARE 375MIN Diagnoses Pleural effusion J90 Pulmonary abscess J85.2 Acute on chronic respiratory failure with hypoxemia J96.21 Obesity E66.9 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
--- NOTE | 2022-12-15 10:20 | History & Physical Report ---
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 #Cavitary PNA Patient s/p extended course of abx cavitary pneumonia. Patient has had worsening of symptoms the last several days with increased chest pain. CT showed interval enlargement of the abscess now 8.[address] at last admit 5.3 x 3.9 cm. Patient would like to proceed with treatment at this time. Patient was evaluated by pulm on last admit - bronch was deemed high risk given pericardial effusion (chronic per cards). Workup at that time was negative for bacteremia, crypto ag, histo ag, aspergillus ag, and b-d glucan. Quantiferon gold was indeterminate. IV abx. Consult pulm. [] Unasyn 3g Q6H [] repeat CT showed enlargement of cavitary lesion [] pulm on board, appreciate recs [] IVF 75 mL/hr NS [] MRSA nares [] f/u blood cx #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 Patient plans to continue with CTX at this time. Had radiation tx in the past. Patient takes chronic steroids 2/2 cerebral edema. There was a plan for an MRI at [place] this coming week. Could consider MRI while inpatient. [] Heme/Onc on board, appreciate recs [] resume home meds #Acute respiratory failure with hypoxia Prior to last admission patient was on RA. Has been unable to d/c O2 following hospitalization. Currently on 2-3 L NC. Patient's breathing is labored, mild distress. Will continue to monitor. #Pericardial effusion: ECHO at last admit showed moderate sized chronic effusion, no evidence of tamponade. Per cards consult last admission this is chronic and there is no need for intervention. Will hold off on consult this admission unless there is interval progression. #Deconditioning#Weakness Patient with complicated clinical course. Would benefit from daily PT/OT while inpatient. [] PT/OT consult [] CM consult #Depression/Anxiety resume home meds #Esophageal stenosis: Plan was for esophageal dilation outpatient. Will need to hold off on this. PPI BID. [] soft diet #Peripheral neuropathy Resume home gabapentin Code status: full DVT ppx: SQ heparin 5,000 Q12 FENGI: IVF 75 mL/hr NS, soft GI diet Dispo:med/tele. 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 The patient was recently admitted (11/07/22-11/19/22) and treated for a left sided lung abscess (5.3 x 3.9 cm cavitary lesion in the LUCIA) with 8 days of Zosyn and 10 days of outpatient abx with Augmentin. She never fully recovered from this abscess, but symptoms significantly worsened over the last few days. Patient did not have an oxygen requirement prior to abscess formation and has been unable to wean at home. Patient was being visited by her kids and grandchildren which may have contributed to delay in seeking care as she thought she could push through the pain ED Course Patient started on Unasyn 3g, also given IV hydromorphone and 1.5L of NS for fluid resuscitation. Patient on 3L NC. HDS. Diagnostics: CXR Findings: A port catheter is seen. The cardiomediastinal silhouette is obscured. Opacities in the left lung compatible with left upper lobe atelectasis. Superimposed aspiration/pneumonia cannot be excluded. No evidence of pleural effusion or pneumothorax. IMPRESSION: Left lung atelectasis, likely of the left upper lobe, is again seen and likely increased from prior exam. Superimposed left aspiration/pneumonia cannot be entirely excluded. Labs notable for: Lactate of 2.8 HsTrop 16.0 procal 0.19 Covid/Flu AB/RSV neg Upon my examination we had a julianna discussion about goals of care. Patient is adamant about continuing CTX and wants treatment of this abscess. Allergies Allergy/AdvReac Type Severity Reaction Status Date / Time lisinopril AdvReac Unknown Cough Verified 12/15/22 10:12 Home Medications Medication Instructions Recorded Confirmed Type pregabalin 150 mg capsule 150 mg PO BID #60 caps 04/02/22 12/15/22 Rx meclizine 25 mg tablet 25 mg PO Q6H PRN dizziness #60 tabs 04/30/22 12/15/22 Rx ondansetron HCl 4 mg tablet 4 mg PO Q8H PRN nausea and 10/14/22 12/15/22 Rx vomiting #30 tabs pantoprazole 40 mg granules 40 mg PO BID 10/14/22 12/15/22 History delayed-release for susp in packet venlafaxine 75 mg tablet 75 mg PO QAM 11/06/22 12/15/22 History amlodipine 10 mg tablet 10 mg PO QAM 11/26/22 12/15/22 History benzonatate 100 mg capsule 100 mg PO TID PRN cough #30 caps 11/26/22 12/15/22 Rx dexamethasone 2 mg tablet 4 mg PO BID 11/26/22 12/15/22 History lorazepam 0.5 mg tablet 0.5 - 1 mg PO Q8H PRN anxiety #30 12/02/22 12/15/22 Rx tabs albuterol sulfate 90 mcg/actuation 2 inh inhalation Q6H PRN Shortness 12/15/22 12/15/22 History aerosol inhaler Of Breath magnesium 200 mg tablet 400 mg PO DAILY 12/15/22 12/15/22 History Past Med/Surg History Medical History Abscess in lung...no sx intervention at this time /hospitalized recently for pneumonia [facility] d/c'd 11/19/22 O2 2 L Acute ITP hx Advanced care planning/counseling discussion Ambulatory dysfunction Anemia hx Anxiety Arthritis Bilat Knees & lower back Cancer related pain Chronic kidney disease, stage 3 (moderate) Chronic steroid use CKD (chronic kidney disease) stage 3, GFR 30-59 ml/min Depression Dysphagia Dyspnea Dyspnea and respiratory abnormalities Encounter for hospice care discussion Esophageal stenosis Esophageal ulcer hx/radiation related GERD (gastroesophageal reflux disease) H/O idiopathic thrombocytopenic purpura (09/2020) treated w/ steroids History of blood transfusion History of COVID-19 ? 2020 History of recent hospitalization [facility] FOR PNEUMONIA/O2 2 L CONTINUES/SOB AND COUGH CONTINUES NO CHANGE...F/U DA NOVEMBER 28 - TRY TO WEAN OFF O2 A FEW DAYS AGO PT WAS ABLE TO BE OFF OXYGEN FOR 3 HR MAX - O2 91-92 % Hypercholesterolemia Hypertension Hypertension Medical marijuana use patient has not used since march 2021 Palliative care by specialist Pericardial effusion PNA (pneumonia) cavitary PNA, post obstructive Port-A-Cath in place LEFT /POWER PORT 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) Radiation esophagitis Restless leg syndrome ? official dx Small cell lung cancer (04/21/20) current chemo tx/mets to brain hx radiation chest and brain Surgical History H/O arthroscopic knee surgery 1998 RIGHT/ 2010 LEFT H/O tubal ligation 1991 H/O: section x2 1987 & 1982 History of bronchoscopy (04/21/20) 04/21/2020 - with positive biopsy History of esophagogastroduodenoscopy (EGD) History of excision of pilonidal cyst 1987 History of open reduction and internal fixation (ORIF) procedure (07/2020) L ankle secondary to fracture History of tooth extraction molars Port-A-Cath in place (05/25/20) Insertion of Mediport Left Subclavian with Fluoroscopy Dr. Ramos 05/25/2020 power port S/P carpal tunnel release 1989's / 2014 LEFT S/P tonsillectomy Age 4 Family History Mother , Passed age 64 of pancreatic cancer Cancer Hypertension Father Hearing loss Grandmother (Maternal) , Passed age 79 of Stomach Cancer No problems noted. Uncle , Passed in 80's of Colorectal Cancer No problems noted. Brother No problems noted. Brother No problems noted. Sister No problems noted. Grandfather (Maternal) , Passed age 89 of Bladder Cancer No problems noted. Son No problems noted. Daughter Breast cancer Grandmother Cancer Grandfather Cancer Other No family history of adverse response to anesthesia No family history of allergies No family history of bleeding disorder Denies family history of Ovarian cancer Heart disease Lung cancer Asthma Social History Smoking Status: Former smoker Tobacco Type: Cigarettes Age Started Using Tobacco: 20; Age Quit Using Tobacco: 60; packs per day: 1; Cigarettes Per Day: 1 pack; Second Hand Exposure: No; Hx Alcohol Use: No Hx Substance Use: No Preferred Language: Persian Communication Ability: Effective Communication Ability Comment: DIFFICULTY TALKING AT TIMES/METS TO BRAIN/JUNE DOES PAT PHONE Visual Impairment: No Limitations Hearing Ability: Normal Asset Analyst Required: No Beliefs That Will Affect Care: None marital status: Current Living Situation: Spouse Current Living Situation Comment: Lives with June in 1 story house, level entry in back current occupational status: employed 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 How many Children do You have: 0 Feels Safe at Home: Yes Childhood Exposure to Second-Hand Smoke: Yes caffeine: Yes (ice tea) during the past year weight has: remained stable Dental Care, Regularly: Yes Physical Activity Frequency: Does not Exercise Seatbelt Use: always Sunscreen Use: No Assistive Devices: Lift Chair, Oxygen - Continuous, Walker and Wheelchair Review of Systems Review of Systems: See HPI Physical Exam Physical Exam: Gen: ill appearing female, appears older than state age, mildly labored breathing on NC HEENT: AT NC, EOMI, PERRL, moist mucous membranes, nares patient Resp: labored breathing, no accessory muscle use, decreased breath sounds throughout CV: RRR no m/r/g, clinically well perfused Abd: non-distended MSK: moves all extremities spontaneously Neuro: alert and oriented Psych: appropriate mood and affect Results & Data Results & Data Vital Signs (Past 12 Hours) Vital Signs Temp Pulse Pulse Resp BP BP Pulse Ox 12/15/22 09:32 90 12/15/22 09:32 12/15/22 09:28 94 H 16 124/75 90 12/15/22 08:00 84 16 130/69 93 12/15/22 06:36 97 H 12/15/22 06:41 92 12/15/22 06:33 12/15/22 06:33 36.6 C 100 H 19 124/75 91 O2 Del Method O2 Flow Rate 12/15/22 09:32 Nasal Cannula 3 12/15/22 09:32 Nasal Cannula 3 12/15/22 09:28 Nasal Cannula 3 12/15/22 08:00 Nasal Cannula 2 12/15/22 06:36 12/15/22 06:41 Nasal Cannula 2 12/15/22 06:33 Nasal Cannula 2 12/15/22 06:33 Nasal Cannula 2 Laboratory Results 12/15/22 12/15/22 12/15/22 Range/Units 12:26 07:24 06:40 WBC (4.8-10.8) K/ul RBC (4.20-5.40) M/uL Hgb (12.0-16.0) g/dl Hct (37.0-47.0) % MCV (80.0-100.0) fL MCH (25.0-34.0) pg MCHC (32.0-36.0) g/dL RDW Std Deviation (36.4-46.3) fL RDW Coeff of Sebastián (11.5-14.5) % Plt Count (130-400) K/uL MPV (9.4-12.4) fL Immature Gran % (Auto) % Neut % (Auto) % Lymph % (Auto) % Lawrence % (Auto) % Eos % (Auto) % Baso % (Auto) % Neut # (Auto) (1.40-6.50) K/uL Lymph # (Auto) (1.2-3.4) K/uL Lawrence # (Auto) (0.11-0.59) K/uL Eos # (Auto) (0-0.50) K/uL Baso # (Auto) (0-0.2) K/uL Immature Gran # (Auto) (0.01-0.20) K/uL Absolute Nucleated RBC (0-0.12) K/uL Nucleated RBC % (auto) % Polychromasia Tear Drop Cells PT (9.0-12.0) Seconds INR (0.9-1.1) APTT (21.0-31.0) Seconds PTT Ratio Sodium (136-145) mmol/L Potassium (3.5-5.1) mmol/L Chloride (98-107) mmol/L Carbon Dioxide (21-32) mmol/L Anion Gap (3-11) BUN (6-23) mg/dl Creatinine (0.6-1.2) mg/dl Est Cr Clr Drug Dosing ml/min Est GFR ( Amer) ml/min Est GFR (Non-Af Amer) ml/min BUN/Creatinine Ratio (10-20) Glucose (70-99(Fasting)) mg/dl Lactate 2.8 H* (0.4-2.0) mmol/L Calcium (8.6-10.3) mg/dl Magnesium (1.7-2.4) mg/dl Total Bilirubin (0.2-1.0) mg/dl AST (13-39) U/L ALT (7-52) U/L Alkaline Phosphatase (34-104) U/L Troponin I High Sens (0-14) pg/ml Total Protein (6.0-8.3) gm/dl Albumin (3.4-5.0) gm/dl Globulin (2.5-4.0) gm/dl Albumin/Globulin Ratio (0.9-2) Procalcitonin 0.19 (0-0.5) ng/ml Nasal Screen MRSA (PCR) Pending SARS-CoV-2 (PCR) (Negative) Influenza Type A (PCR) (Neg) Influenza Type B (PCR) (Neg) RSV (RT-PCR) (Neg) 12/15/22 12/15/22 12/15/22 Range/Units 06:40 06:40 06:40 WBC (4.8-10.8) K/ul RBC (4.20-5.40) M/uL Hgb (12.0-16.0) g/dl Hct (37.0-47.0) % MCV (80.0-100.0) fL MCH (25.0-34.0) pg MCHC (32.0-36.0) g/dL RDW Std Deviation (36.4-46.3) fL RDW Coeff of Sebastián (11.5-14.5) % Plt Count (130-400) K/uL MPV (9.4-12.4) fL Immature Gran % (Auto) % Neut % (Auto) % Lymph % (Auto) % Lawrence % (Auto) % Eos % (Auto) % Baso % (Auto) % Neut # (Auto) (1.40-6.50) K/uL Lymph # (Auto) (1.2-3.4) K/uL Lawrence # (Auto) (0.11-0.59) K/uL Eos # (Auto) (0-0.50) K/uL Baso # (Auto) (0-0.2) K/uL Immature Gran # (Auto) (0.01-0.20) K/uL Absolute Nucleated RBC (0-0.12) K/uL Nucleated RBC % (auto) % Polychromasia Tear Drop Cells PT 9.8 (9.0-12.0) Seconds INR 0.9 (0.9-1.1) APTT 21.4 (21.0-31.0) Seconds PTT Ratio 0.8 Sodium 138 (136-145) mmol/L Potassium 4.3 (3.5-5.1) mmol/L Chloride 101 (98-107) mmol/L Carbon Dioxide 26 (21-32) mmol/L Anion Gap 11 (3-11) BUN 37 H (6-23) mg/dl Creatinine 1.09 (0.6-1.2) mg/dl Est Cr Clr Drug Dosing 51.8 ml/min Est GFR ( Amer) 63.9 ml/min Est GFR (Non-Af Amer) 55.1 ml/min BUN/Creatinine Ratio 33.9 H (10-20) Glucose 162 H (70-99(Fasting)) mg/dl Lactate (0.4-2.0) mmol/L Calcium 8.9 (8.6-10.3) mg/dl Magnesium 2.0 (1.7-2.4) mg/dl Total Bilirubin 0.9 (0.2-1.0) mg/dl AST 17 (13-39) U/L ALT 27 (7-52) U/L Alkaline Phosphatase 93 (34-104) U/L Troponin I High Sens 16.0 H (0-14) pg/ml Total Protein 6.3 (6.0-8.3) gm/dl Albumin 3.2 L (3.4-5.0) gm/dl Globulin 3.1 (2.5-4.0) gm/dl Albumin/Globulin Ratio 1.0 (0.9-2) Procalcitonin (0-0.5) ng/ml Nasal Screen MRSA (PCR) SARS-CoV-2 (PCR) NEGATIVE (Negative) Influenza Type A (PCR) Negative (Neg) Influenza Type B (PCR) Negative (Neg) RSV (RT-PCR) Negative (Neg) 12/15/22 Range/Units 06:40 WBC 9.08 (4.8-10.8) K/ul RBC 3.16 L (4.20-5.40) M/uL Hgb 10.7 L (12.0-16.0) g/dl Hct 31.7 L (37.0-47.0) % MCV 100.3 H (80.0-100.0) fL MCH 33.9 (25.0-34.0) pg MCHC 33.8 (32.0-36.0) g/dL RDW Std Deviation 70.6 H (36.4-46.3) fL RDW Coeff of Sebastián 19.1 H (11.5-14.5) % Plt Count 149 (130-400) K/uL MPV 10.8 (9.4-12.4) fL Immature Gran % (Auto) 5.7 % Neut % (Auto) 83.3 % Lymph % (Auto) 4.5 % Lawrence % (Auto) 6.1 % Eos % (Auto) 0.0 % Baso % (Auto) 0.4 % Neut # (Auto) 7.56 H (1.40-6.50) K/uL Lymph # (Auto) 0.41 L (1.2-3.4) K/uL Lawrence # (Auto) 0.55 (0.11-0.59) K/uL Eos # (Auto) 0.00 (0-0.50) K/uL Baso # (Auto) 0.04 (0-0.2) K/uL Immature Gran # (Auto) 0.52 H (0.01-0.20) K/uL Absolute Nucleated RBC 0.03 (0-0.12) K/uL Nucleated RBC % (auto) 0.3 % Polychromasia 1+ Tear Drop Cells 1+ PT (9.0-12.0) Seconds INR (0.9-1.1) APTT (21.0-31.0) Seconds PTT Ratio Sodium (136-145) mmol/L Potassium (3.5-5.1) mmol/L Chloride (98-107) mmol/L Carbon Dioxide (21-32) mmol/L Anion Gap (3-11) BUN (6-23) mg/dl Creatinine (0.6-1.2) mg/dl Est Cr Clr Drug Dosing ml/min Est GFR ( Amer) ml/min Est GFR (Non-Af Amer) ml/min BUN/Creatinine Ratio (10-20) Glucose (70-99(Fasting)) mg/dl Lactate (0.4-2.0) mmol/L Calcium (8.6-10.3) mg/dl Magnesium (1.7-2.4) mg/dl Total Bilirubin (0.2-1.0) mg/dl AST (13-39) U/L ALT (7-52) U/L Alkaline Phosphatase (34-104) U/L Troponin I High Sens (0-14) pg/ml Total Protein (6.0-8.3) gm/dl Albumin (3.4-5.0) gm/dl Globulin (2.5-4.0) gm/dl Albumin/Globulin Ratio (0.9-2) Procalcitonin (0-0.5) ng/ml Nasal Screen MRSA (PCR) SARS-CoV-2 (PCR) (Negative) Influenza Type A (PCR) (Neg) Influenza Type B (PCR) (Neg) RSV (RT-PCR) (Neg) Diagnostic Findings Chest X-Ray 12/15/22 06:38 XR chest 1V not portable CLINICAL HISTORY: Chest pain, nonspecific TECHNIQUE: Single frontal radiograph of the chest was obtained. Comparison: Comparison is made to chest radiograph 11/07/[address] chest 11/18/2022 FINDINGS: A port catheter is seen. The cardiomediastinal silhouette is obscured. Opacities in the left lung compatible with left upper lobe atelectasis. Superimposed aspiration/pneumonia cannot be excluded. No evidence of pleural effusion or pneumothorax. IMPRESSION: Left lung atelectasis, likely of the left upper lobe, is again seen and likely increased from prior exam. Superimposed left aspiration/pneumonia cannot be entirely excluded. Chest CT 12/15/22 10:12 CT chest diagnostic w con CLINICAL HISTORY: lung abscess TECHNIQUE: Multidetector row helical CT of the chest was performed with intravenous contrast. Coronal and sagittal reformations were obtained. Automated dose lowering techniques and/or adjustment according to patient size were utilized for this exam. CT DOSE: 284.13 mGy.cm Comparison: Comparison is made to CT chest 11/18/2022 FINDINGS: Lungs and pleura: Redemonstration of a gas and fluid collection in the left lung measuring approximately 81 x 42 mm, increased from prior exam with increased fluid content is decreased gaseous content. There is collapse of the right upper lung. There is bibasilar atelectasis with small left pleural effusion. Heart and pericardium: There is a small pericardial effusion. Vessels: Unremarkable. Mediastinum and grace: Unremarkable. Chest wall and lower neck: Unremarkable. Abdomen: Unremarkable. Bones: Degenerative changes in the thoracic spine. IMPRESSION: 1. Left upper lung fluid collection has increased in size from prior exam. Findings are concerning for enlarging pulmonary abscess. Empyema is considered less likely. 2. Collapse of the left upper lung is again noted. 3. Small left pleural effusion, unchanged from prior exam, bibasilar atelectasis is noted. Supervising Physician Co-Signing Physician Notes I have seen and examined patient, and agree with assessment and plan as documented by Dr. Sanchez. Resident Activity Tracking Resident Involvement: Resident Care Provided Care Provided: Adult Hospital Medicine (2) Chest pain Chest pain type: unspecified Qualified Code(s): R07.9 - Chest pain, unspecified
[2022-12-15] MEDS ORDERED: OPTIRAY 350 100ml IV ONE (11:11)
--- NOTE | 2022-12-15 11:26 | CT Scan Report ---
CT chest diagnostic w con CLINICAL HISTORY: lung abscess TECHNIQUE: Multidetector row helical CT of the chest was performed with intravenous contrast. Coronal and sagittal reformations were obtained. Automated dose lowering techniques and/or adjustment accord ing to patient size were utilized for this exam. CT DOSE: 284.13 mGy.cm Comparison: Comparison is made to CT chest 11/18/2022 FINDINGS: Lungs and pleura: Redemonstration of a gas and fluid collection in the left lung measuring approximat aggie 81 x 42 mm, increased from prior exam with increased fluid content is decreased gaseous content. There is collapse of the right upper lung. There is bibasilar atelectasis with small left pleural eff usion. Heart and pericardium: There is a small pericardial effusion. Vessels: Unremarkable. Mediastinum and grace: Unremarkable. Chest wall and lower neck: Unremarkable. Abdomen: Unremarkable. Bones: Degenerative changes in the thoracic spine. IMPRESSION: 1. Left upper lung fluid collection has increased in size from prior exam. Findings are concerning f or enlarging pulmonary abscess. Empyema is considered less likely. 2. Collapse of the left upper lung is again noted. 3. Small left pleural effusion, unchanged from prior exam, bibasilar atelectasis is noted. ACT 112: Negative or not required by law. Electronically signed by: Silvino Raphael M.D. 12/15/2022 11:24 AM
[2022-12-15] MEDS ORDERED: MoRPHine SULFATE 2 MG/ML CARP ONE (12:47)
[2022-12-15] MEDS ORDERED: ALBUTEROL HFA 8 GM INHALER INH PRN (12:59)
[2022-12-15] MEDS ORDERED: LORazepam 0.5 MG TAB PO PRN (12:59)
[2022-12-15] MEDS ORDERED: dexAMETHasone 4 MG TAB PO SCH (13:00)
[2022-12-15] MEDS ORDERED: PANTOprazole 40 MG TAB PO SCH (13:15)
--- NOTE | 2022-12-15 13:43 | Electrocardiogram Report ---
Test Reason : Blood Pressure : / mmHG Vent. Rate : 098 BPM Atrial Rate : 098 BPM P-R Int : 142 ms QRS Dur : 090 ms QT Int : 326 ms P-R-T Axes : 065 046 109 degrees QTc Int : 416 ms Normal sinus rhythm Low voltage QRS Abnormal ECG When compared with ECG of 07-NOV-2022 11:44, No significant change was found Confirmed by Leon Walsh ([id number]) on 12/15/2022 1:43:31 PM Referred By: REFERRED SELF Confirmed By:Leon Walsh
[2022-12-15] MEDS: VENLAFAXINE HCL 37.5 MG TAB PO SCH (13:57)
[2022-12-15] MEDS: HEPARIN SOD 5,000 UNIT/0.5 ML VIAL SQ SCH ×2 (13:57→20:36)
[2022-12-15] MEDS: SODIUM CHLORIDE 0.9% 1000ML 1,000 ML IV SCH (15:22)
[2022-12-15] MEDS: MoRPHine SULFATE 2 MG/ML CARP IV PRN ×2 (15:28→19:28)
[2022-12-15] MEDS: AMPICILLIN/SULBACTAM SOD 3,000 MG in 0.9 % SODIUM CHLORIDE 100 ML IV SCH ×2 (17:21→22:58)
[2022-12-15] MEDS: PANTOprazole 40 MG in SYRINGE 0 ML IV SCH (20:35)
[2022-12-15] MEDS: dexAMETHasone 4 MG in SYRINGE 0 ML IV SCH (20:36)
[2022-12-15] MEDS: PREGABALIN 150 MG CAP PO SCH (20:37)
[2022-12-15] MEDS ORDERED: ACETAMINOPHEN 1,000 MG/100 ML VIAL IV PRN (20:49)
[2022-12-16] MEDS: SODIUM CHLORIDE 0.9% 1000ML 1,000 ML IV SCH ×2 (01:58→15:06)
[2022-12-16 02:16] LABS: Basophils # (auto) 0.02 K/uL (0-0.2); Basophils % (auto) 0.2 %; Hematocrit (blood only) 28.1 % (37.0-47.0); Hemoglobin 9.3 g/dl (12.0-16.0); Immature Granulocytes # (auto) 0.25 K/uL (0.01-0.20); Immature Granulocytes % (auto) 2.9 %; Lymphocytes # (auto) 0.23 K/uL (1.2-3.4); Lymphocytes % (auto) 2.7 %; Mean Corpuscular Hemoglobin 34.1 pg (25.0-34.0); Mean Corpuscular Hgb Conc 33.1 g/dL (32.0-36.0); Mean Corpuscular Volume 102.9 fL (80.0-100.0); Monocytes # (auto) 0.36 K/uL (0.11-0.59); Monocytes % (auto) 4.2 %; Neutrophils # (auto) 7.74 K/uL (1.40-6.50); Platelet Count 104 K/uL (130-400); RDW Coefficient of Variation 19.9 % (11.5-14.5); RDW Standard Deviation 74.8 fL (36.4-46.3); Red Blood Count 2.73 M/uL (4.20-5.40)
[2022-12-16 02:39] LABS: BUN Creatinine Ratio 26.5 (10-20); Calcium 8.9 mg/dl (8.6-10.3); Creatinine Clr Calc Pharmacy 55.4 ml/min; Est GFR (African American) 69.2 ml/min; Est GFR (Non-African American) 59.7 ml/min; Magnesium 1.9 mg/dl (1.7-2.4); Phosphorus 3.7 mg/dl (2.5-4.9); Potassium 4.1 mmol/L (3.5-5.1)
[2022-12-16] MEDS ORDERED: HEPARIN 100 UNIT/ML 5ML FLUSH FLUSH PRN (03:04)
[2022-12-16] MEDS: AMPICILLIN/SULBACTAM SOD 3,000 MG in 0.9 % SODIUM CHLORIDE 100 ML IV SCH ×4 (04:52→23:47)
--- NOTE | 2022-12-16 07:04 | Hospitalist Progress Note ---
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 Antoine and decision to continue with hospice care and DNR/DNI code status. #Cavitary PNA Patient s/p extended course of abx cavitary pneumonia. Patient has had worsening of symptoms the last several days with increased chest pain. CT showed interval enlargement of the abscess now 8.[address] at last admit 5.3 x 3.9 cm. Patient would like to proceed with treatment at this time. Patient was evaluated by pulm on last admit - bronch was deemed high risk given pericardial effusion (chronic per cards). Workup at that time was negative for bacteremia, crypto ag, histo ag, aspergillus ag, and b-d glucan. Quantiferon gold was indeterminate, repeat. MRSA nares - neg. IV abx with Unasyn. Dr. Antoine placed a chest tube 12/16. Chest tube to suction. Confirmed location with CXR. ID on board to help guide abx duration. [] Unasyn 3g Q6H [] CT to suction [] IVF 75 mL/hr NS [] f/u blood cx, lung abscess cx #Goals of Care After a long discussion with palliative care patient and family have agreed to continue with hospice care. Patient will be made DNR/DNI. Focus will be on comfort and making memories with family at this time. Will work on dispo planning. As patient plans to continue with hospice heme/onc will be signing off. 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 Was having CTX. Patient has settled with hospice for dispo planning. Likely will not continue with CTX. Patient takes chronic steroids 2/2 cerebral edema. There was a plan for an MRI at [facility] this coming week. Unclear if this will be done as goals of care have changed. #Acute respiratory failure with hypoxia Prior to last admission patient was on RA. Has been unable to d/c O2 following hospitalization. Patient breathing much more comfortably after CT placement - now on 3L NC. #Pericardial effusion: ECHO at last admit showed moderate sized chronic effusion, no evidence of tamponade. Per cards consult last admission this is chronic and there is no need for intervention. Will hold off on consult this admission unless there is inter radha progression. #Deconditioning#Weakness Patient with complicated clinical course. Would benefit from daily PT/OT while inpatient. [] PT/OT consult [] CM consult #Depression/Anxiety resume home meds #Esophageal stenosis: Plan was for esophageal dilation outpatient. Will need to hold off on this. PPI BID. [] soft diet, allow permissive aspiration #Peripheral neuropathy Resume home gabapentin Code status: DNR/DNI DVT ppx: SQ heparin 5,000 Q12 FENGI: IVF 75 mL/hr NS, soft GI diet Dispo: med/tele, hospice, palliative consulted (2) Chest pain: (3) 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: (4) Esophageal stenosis: (5) Peripheral neuropathy due to chemotherapy: (6) Acute respiratory failure with hypoxia: (7) Pericardial effusion: Admission and Anticipated Discharge Date Admission Date: December 15, 2022 Supervising Physician Co-Signing Physician Notes I personally examined the patient and verified all [facility] points of history and exam, discussed case, and agree with decision making with Dr Sanchez Some chest tube pain, but reasonably controlled. No other acute complaints. Vitals noted, in general she is resting comfortably no distress. Breathing unlabored no accessory muscle use good effort. Skin shows no rashes no pallor or icterus. Neuro without focal deficits. Chest tube draining thick somewhat purulent bloody material Lung abscessfortunately pulmonary was able to affect drainage, this should tem porize the situation. Continue antibiotics. With her diffuse metastatic lung cancer, after discussions with the primary team over the weekend, as well as palliative todayshe is moving towards home with hospice. Otherwise as above Subjective Patient seen at bedside this AM. Feels breathing is stable. Pain is well controlled. No fevers or chills. Review of Systems Review of Systems: See HPI Physical Exam Physical Exam: Gen: ill appearing female, appears older than state age, mildly labored breathing on NC HEENT: AT MS, EOMI, PERRL, moist mucous membranes, nares patent Resp: labored breathing, no accessory muscle use, decreased breath sounds throughout CV: RRR no m/r/g, clinically well perfused Abd: non-distended MSK: moves all extremities spontaneously Neuro: alert and oriented Psych: appropriate mood and affect Results & Data Results & Data Vital Signs (Past 12 Hours) Vital Signs Temp Pulse Pulse Resp BP Pulse Ox O2 Del Method 12/16/22 03:36 36.3 C L 80 20 156/94 H 99 Oxymask 12/15/22 22:27 72 12/15/22 23:33 37.1 C 79 20 149/86 H 97 Oxymask 12/15/22 22:24 Oxymask 12/15/22 19:44 36.6 C 83 20 122/82 91 Oxymask O2 Flow Rate 12/16/22 03:36 10 12/15/22 22:27 12/15/22 23:33 10 12/15/22 22:24 10 12/15/22 19:44 10 Laboratory Results 12/16/22 02:00 12/16/22 02:00 Lactate 3.0 Diagnostic Findings Chest X-Ray 12/16/22 14:24 SINGLE VIEW CHEST CLINICAL HISTORY: Chest tube placement. FINDINGS: An AP, portable, upright chest radiograph is compared to chest x-ray and chest CT dated 12/15/2022. A left subclavian central venous infusion port is unchanged in position. The heart is enlarged. The pulmonary vasculature is noncongested. Emphysema and chronic interstitial thickening is similar to previous. The right lung appears clear. A left-sided chest tube has been placed. There is trace pneumothorax. A left upper lobe opacity persists and may represent consolidated lung versus an/or residual fluid collection as seen on yesterday's CT scan. Loculated fluid is noted in the left apex. No right-sided pneumothorax is seen. The skeletal structures are osteopenic. The bony thorax is grossly intact. IMPRESSION: 1. Cardiomegaly and emphysema. 2. A left-sided chest tube has been placed. There is likely trace left-sided pneumothorax. 3. A left upper lobe opacity persists and could represent consolidation and/or residual fluid collection. 4. There is loculated fluid at the left apex. Resident Activity Tracking Resident Involvement: Resident Care Provided Care Provided: Adult Hospital Medicine (2) Chest pain Chest pain type: unspecified Qualified Code(s): R07.9 - Chest pain, unspecified
--- NOTE | 2022-12-16 07:46 | Oncology Consultation ---
Date of Consultation December 16, 2022 Assessment & Plan (1) Acute respiratory failure with hypoxia: (2) Pulmonary abscess: (3) Metastatic lung cancer (metastasis from lung to other site): Plan Very pleasant female with small cell lung cancer now admitted with worsening empyema as well as declining performance status . She is now s/p pigtail catheter placement. I met with patient and her today and answered any questions they had. Patient met with palliative care earlier today and has decided on hospice/supportive care. Oncology will therefore sign off at this time. Please feel free to call if you have any further questions History of Present Illness Reason for Consultation: Small cell lung cancer Attending Physician: Sedrick Barkley, History of Present Illness Very pleasant 62-year-old female with stage IV/metastatic small cell lung cancer s/p multiple lines of treatment including concurrent chemoradiation treatment with cisplatin/etoposide from April, till September, followed by Keytruda in early 2021 for disease progression and most recently received topotecan from November, till April, with good response to treatment. She was started on bevacizumab in June, for vasogenic edema. Patient was admitted for to [facility] with chest pain as well as worsening shortness of breath. CTA revealed worsening left lung empyema. Allergies Allergy/AdvReac Type Severity Reaction Status Date / Time lisinopril AdvReac Unknown Cough Verified 12/15/22 10:12 Home Medications Medication Instructions Recorded Confirmed Type pregabalin 150 mg capsule 150 mg PO BID #60 caps 04/02/22 12/15/22 Rx meclizine 25 mg tablet 25 mg PO Q6H PRN dizziness #60 tabs 04/30/22 12/15/22 Rx ondansetron HCl 4 mg tablet 4 mg PO Q8H PRN nausea and 10/14/22 12/15/22 Rx vomiting #30 tabs pantoprazole 40 mg granules 40 mg PO BID 10/14/22 12/15/22 History delayed-release for susp in packet venlafaxine 75 mg tablet 75 mg PO QAM 11/06/22 12/15/22 History amlodipine 10 mg tablet 10 mg PO QAM 11/26/22 12/15/22 History benzonatate 100 mg capsule 100 mg PO TID PRN cough #30 caps 11/26/22 12/15/22 Rx dexamethasone 2 mg tablet 4 mg PO BID 11/26/22 12/15/22 History lorazepam 0.5 mg tablet 0.5 - 1 mg PO Q8H PRN anxiety #30 12/02/22 12/15/22 Rx tabs albuterol sulfate 90 mcg/actuation 2 inh inhalation Q6H PRN Shortness 12/15/22 12/15/22 History aerosol inhaler Of Breath magnesium 200 mg tablet 400 mg PO DAILY 12/15/22 12/15/22 History Patient History Medical History Abscess in lung...no sx intervention at this time /hospitalized recently for pneumonia [facility] d/c'd 11/19/22 O2 2 L Acute ITP hx Advanced care planning/counseling discussion Ambulatory dysfunction Anemia hx Anxiety Arthritis Bilat Knees & lower back Cancer related pain Chronic kidney disease, stage 3 (moderate) Chronic steroid use CKD (chronic kidney disease) stage 3, GFR 30-59 ml/min Depression Dysphagia Dyspnea Dyspnea and respiratory abnormalities Encounter for hospice care discussion Esophageal stenosis Esophageal ulcer hx/radiation related GERD (gastroesophageal reflux disease) H/O idiopathic thrombocytopenic purpura (09/2020) treated w/ steroids History of blood transfusion History of COVID-19 ? 2020 History of recent hospitalization [facility]/O2 2 L CONTINUES/SOB AND COUGH CONTINUES NO CHANGE...F/U DA NOVEMBER 26 - TRY TO WEAN OFF O2 A FEW DAYS AGO PT WAS ABLE TO BE OFF OXYGEN FOR 3 HR MAX - O2 91-92 % Hypercholesterolemia Hypertension Hypertension Medical marijuana use patient has not used since march 2021 Palliative care by specialist Pericardial effusion PNA (pneumonia) cavitary PNA, post obstructive Port-A-Cath in place LEFT /POWER PORT 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) Radiation esophagitis Restless leg syndrome ? official dx Small cell lung cancer (04/21/20) current chemo tx/mets to brain hx radiation chest and brain Surgical History H/O arthroscopic knee surgery 1998 RIGHT/ 2010 LEFT H/O tubal ligation 1991 H/O: section x2 1987 & 1982 History of bronchoscopy (04/21/20) 04/21/2020 - with positive biopsy History of esophagogastroduodenoscopy (EGD) History of excision of pilonidal cyst 1987 History of open reduction and internal fixation (ORIF) procedure (07/2020) L ankle secondary to fracture History of tooth extraction molars Port-A-Cath in place (05/25/20) Insertion of Mediport Left Subclavian with Fluoroscopy Dr. Ramos 05/25/2020 power port S/P carpal tunnel release 1989's / 2014 LEFT S/P tonsillectomy Age 4 Family History Mother , Passed age 64 of pancreatic cancer Cancer Hypertension Father Hearing loss Grandmother (Maternal) , Passed age 79 of Stomach Cancer No problems noted. Uncle , Passed in 80's of Colorectal Cancer No problems noted. Brother No problems noted. Brother No problems noted. Sister No problems noted. Grandfather (Maternal) , Passed age 89 of Bladder Cancer No problems noted. Son No problems noted. Daughter Breast cancer Grandmother Cancer Grandfather Cancer Other No family history of adverse response to anesthesia No family history of allergies No family history of bleeding disorder Denies family history of Ovarian cancer Heart disease Lung cancer Asthma Social History Smoking Status: Former smoker Tobacco Type: Cigarettes Age Started Using Tobacco: 20; Age Quit Using Tobacco: 60; packs per day: 1; Cigarettes Per Day: 1 pack; Second Hand Exposure: No; Hx Alcohol Use: No Hx Substance Use: No Preferred Language: Danish Communication Ability: Effective Communication Ability Comment: DIFFICULTY TALKING AT TIMES/METS TO BRAIN/STEFAN DOES PAT PHONE Visual Impairment: No Limitations Hearing Ability: Normal Order Selector Required: No Beliefs That Will Affect Care: None marital status: Current Living Situation: Spouse Current Living Situation Comment: Lives with Stefan in 1 story house, level entry in back current occupational status: employed 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 How many Children do You have: 0 Feels Safe at Home: Yes Childhood Exposure to Second-Hand Smoke: Yes caffeine: Yes (ice tea) during the past year weight has: remained stable Dental Care, Regularly: Yes Physical Activity Frequency: Does not Exercise Seatbelt Use: always Sunscreen Use: No Assistive Devices: Lift Chair, Oxygen - Continuous, Walker and Wheelchair Results & Data Vital Signs (Past 12 Hours) Vital Signs Temp Pulse Pulse Resp BP Pulse Ox O2 Del Method 12/16/22 07:38 81 12/16/22 03:36 36.3 C L 80 20 156/94 H 99 Oxymask 12/15/22 22:27 72 12/15/22 23:33 37.1 C 79 20 149/86 H 97 Oxymask 12/15/22 22:24 Oxymask O2 Flow Rate 12/16/22 07:38 12/16/22 03:36 10 12/15/22 22:27 12/15/22 23:33 10 12/15/22 22:24 10
[2022-12-16] MEDS: dexAMETHasone 4 MG in SYRINGE 0 ML IV SCH ×2 (08:21→20:19)
[2022-12-16] MEDS: PANTOprazole 40 MG in SYRINGE 0 ML IV SCH (08:21)
[2022-12-16] MEDS: HEPARIN SOD 5,000 UNIT/0.5 ML VIAL SQ SCH ×2 (08:21→20:21)
[2022-12-16] MEDS: VENLAFAXINE HCL 37.5 MG TAB PO SCH (10:25)
[2022-12-16] MEDS: PREGABALIN 150 MG CAP PO SCH ×2 (10:25→20:28)
--- NOTE | 2022-12-16 11:16 | Palliative Care Consultation ---
Date of Consultation December 16, 2022 Assessment & Plan (1) Palliative care by specialist: Met with pt/family. Provided overview of Palliative Medicine, a subspecialty that provides specialized medical care for people living with a serious illness by offering a focus on quality of life. Palliative Medicine is often conflated with hospice: I advised patient/family that Palliative and hospice can be partners but we are not the same. It is important to understand the difference so that we may be informed, and not afraid. Palliative Medicine works to improve QOL through reduction of symptom burden/more control over their illness, for both the patient and family. Palliative medicine clinicians are board certified, specially-trained and another member of the patient's medical care team. We often provide an extra layer of support because our care is based on the needs of the patient, not the prognosis; as such, it's appropriate at any age/advancing stage of a serious illness and can be provided along with curative treatment. Palliative Medicine clinicians are also trained in advanced communication methodologies, to facilitate complex discussions about advanced illness planning, which are needed to help assure that the treatment choices match the patient's goals, aka delivering Goal Concordant care. Finally, we discussed that hospice is a visiting nurse service that focuses on care delivered at the very end of life for patients with terminal illness, with life expectancy less than 6 month. (2) Advanced care planning/counseling discussion: 60 min face t face ACP discussion held with Lori and her Stefan at the bedside. She tells me she does feel more chemo will be of benefit to her. We spoke about the immune suppression that comes with chemo and how this may indeed further complicate the abscess resolving and may potentially worsen it. She also points out that she has been steadily declining and in general, "feeling worse overall." She is tired and wants to shift her focus to being more about QOL and being home. She does not want SNF placement or rehab. She wants to be with her family, knowing time is running shorter than she would like. We discussed legacy projects she can start now: Compendium Notes, inscribed books for each grandchild ( will send me their ages and I will send him age specific book recommendations.) I have provided education about the hospice benefit. Hospice is an interdisciplinary program offered by nurses, nurses aides, social workers, chaplains and a medical officer for patients with a terminal condition and a life expectancy of less than 6 months. The goal would be to improve the quality of life of the patient in their home setting (home, long term, inpatient hospice setting) by providing symptoms management, psychosocial and spiritual support. However, they cannot offer 24 hours care and if the family is unable to provide that care, they will have to consider personal care with out of pocket cost vs. long term placement. They would like home hospice. They met with Britton last week but there was some confusion about Britton reportedly advising them "they could not have hospice if she recently had chemo" ? Advised this is inaccurate, will ask CM to assist. (3) Encounter for hospice care discussion: I have provided education about the hospice benefit. Hospice is an interdisciplinary program offered by nurses, nurses aides, social workers, chaplains and a medical officer for patients with a terminal condition and a life expectancy of less than 6 months. The goal would be to improve the quality of life of the patient in their home setting (home, long term, inpatient hospice setting) by providing symptoms management, psychosocial and spiritual support. However, they cannot offer 24 hours care and if the family is unable to provide that care, they will have to consider personal care with out of pocket cost vs. long term placement. 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 Please don't hesitate to call or page with any additional concerns. Dr. Kim Mireles DNP Director, Palliative Care History of Present Illness Reason for Consultation: On 12/15/22 @ 16:44 Asia Sanchez Wrote To Paris Nolasco goals of care discussion Attending Physician: Sedrick R Rubia, DO History of Present Illness 62yo female with met lung cancer to brain (s/p craniotomy, radiation and most recently chemotherapy) who was jujst recewntly admitted end of Oct 2022 for LUCIA abscess rx with Augmentin. most regrettably, her symptoms returned with completion of abtx. She came to [facility] ED with c/o increasing left upper chest pain and difficulty breathing. She required IV opioids and oxygen, ACS workup negative. CXR: continued area of abscess in the left upper lobe that is moderately increased in size as well as some left-sided effusion. Modest Lactic elevation. s/p ED dose Unasyn given prior response to Augmentin. per admitting notes, " reported that they had tried to get hospice involved earlier in this week but this was somewhat declined given that she had recently received chemotherapy. It sounds like they are leaning towards further discussions with palliative care about what the best approach is as she has not been able to get up for months and has pretty much been just laying in bed with progressively worsening weakness requiring essentially constant use of Decadron. " Patient is well known to me from recent prior admission and was seen by me about 3 weeks ago. At that time we had extensive GOC/ACP discussions during which we reviewed code status, goals, home health vs home hospice options and pt ultimately decided she did not want to make any decisions or changes. She wished to continue along a cancer treatment-directed course. She has unfortunately been declining in the interim and has now contemplated home hospice. At time of my visit she is being prepped for a thoracentesis at bedside. Her is not present nor was he in waiting lounge. Allergies Allergy/AdvReac Type Severity Reaction Status Date / Time lisinopril AdvReac Unknown Cough Verified 12/15/22 10:12 Home Medications Medication Instructions Recorded Confirmed Type pregabalin 150 mg capsule 150 mg PO BID #60 caps 04/02/22 12/15/22 Rx meclizine 25 mg tablet 25 mg PO Q6H PRN dizziness #60 tabs 04/30/22 12/15/22 Rx ondansetron HCl 4 mg tablet 4 mg PO Q8H PRN nausea and 10/14/22 12/15/22 Rx vomiting #30 tabs pantoprazole 40 mg granules 40 mg PO BID 10/14/22 12/15/22 History delayed-release for susp in packet venlafaxine 75 mg tablet 75 mg PO QAM 11/06/22 12/15/22 History amlodipine 10 mg tablet 10 mg PO QAM 11/26/22 12/15/22 History benzonatate 100 mg capsule 100 mg PO TID PRN cough #30 caps 11/26/22 12/15/22 Rx dexamethasone 2 mg tablet 4 mg PO BID 11/26/22 12/15/22 History lorazepam 0.5 mg tablet 0.5 - 1 mg PO Q8H PRN anxiety #30 12/02/22 12/15/22 Rx tabs albuterol sulfate 90 mcg/actuation 2 inh inhalation Q6H PRN Shortness 12/15/22 12/15/22 History aerosol inhaler Of Breath magnesium 200 mg tablet 400 mg PO DAILY 12/15/22 12/15/22 History Patient History Medical History (Updated 12/16/22 @ 11:56 by Kim Mireles, MIGUEL) Abscess in lung...no sx intervention at this time /hospitalized recently for pneumonia [facility] d/c'd 11/19/22 O2 2 L Acute ITP hx Advanced care planning/counseling discussion Ambulatory dysfunction Anemia hx Anxiety Arthritis Bilat Knees & lower back Cancer related pain Chronic kidney disease, stage 3 (moderate) Chronic steroid use CKD (chronic kidney disease) stage 3, GFR 30-59 ml/min Depression Dysphagia Dyspnea Dyspnea and respiratory abnormalities Encounter for hospice care discussion Esophageal stenosis Esophageal ulcer hx/radiation related GERD (gastroesophageal reflux disease) H/O idiopathic thrombocytopenic purpura (09/2020) treated w/ steroids History of blood transfusion History of COVID-19 ? 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 official dx Small cell lung cancer (04/21/20) current chemo tx/mets to brain hx radiation chest and brain Surgical History H/O arthroscopic knee surgery 1998 RIGHT/ 2011 LEFT H/O tubal ligation 1991 H/O: section x2 1987 & 1982 History of bronchoscopy (04/21/20) 04/21/2020 - with positive biopsy History of esophagogastroduodenoscopy (EGD) History of excision of pilonidal cyst 1987 History of open reduction and internal fixation (ORIF) procedure (07/2020) L ankle secondary to fracture History of tooth extraction molars Port-A-Cath in place (05/25/20) Insertion of Mediport Left Subclavian with Fluoroscopy Dr. Ramos 05/25/2020 power port S/P carpal tunnel release 1989's / 2014 LEFT S/P tonsillectomy Age 4 Family History Mother , Passed age 64 of pancreatic cancer Cancer Hypertension Father Hearing loss Grandmother (Maternal) , Passed age 79 of Stomach Cancer No problems noted. Uncle , Passed in 80's of Colorectal Cancer No problems noted. Brother No problems noted. Brother No problems noted. Sister No problems noted. Grandfather (Maternal) , Passed age 89 of Bladder Cancer No problems noted. Son No problems noted. Daughter Breast cancer Grandmother Cancer Grandfather Cancer Other No family history of adverse response to anesthesia No family history of allergies No family history of bleeding disorder Denies family history of Ovarian cancer Heart disease Lung cancer Asthma Social History Smoking Status: Former smoker Tobacco Type: Cigarettes Age Started Using Tobacco: 20; Age Quit Using Tobacco: 60; packs per day: 1; Cigarettes Per Day: 1 pack; Second Hand Exposure: No; Hx Alcohol Use: No Hx Substance Use: No Preferred Language: Turkmen Communication Ability: Effective Communication Ability Comment: DIFFICULTY TALKING AT TIMES/METS TO BRAIN/STEFAN DOES PAT PHONE Visual Impairment: No Limitations Hearing Ability: Normal Analysis Evaluator Required: No Beliefs That Will Affect Care: None marital status: Current Living Situation: Spouse Current Living Situation Comment: Lives with Stefan in 1 story house, level entry in back current occupational status: employed 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 How many Children do You have: 0 Feels Safe at Home: Yes Childhood Exposure to Second-Hand Smoke: Yes caffeine: Yes (ice tea) during the past year weight has: remained stable Dental Care, Regularly: Yes Physical Activity Frequency: Does not Exercise Seatbelt Use: always Sunscreen Use: No Assistive Devices: Lift Chair, Oxygen - Continuous, Walker and Wheelchair Review of Systems Review of Systems: All systems reviewed & are unremarkable except as noted in Subjective Physical Exam Physical Exam: Chronically ill appearing,inc resp effort semi reclined in bed, s/p chest tube bitemp wasting perrla, EOMIs MOSCOSO weakly BUE >> BLE generalized weakness softly distended abdomen mild intermittent confusion skin pale, few ecchymoses cool to touch AAOx3 Results & Data Vital Signs (Past 12 Hours) Vital Signs Temp Pulse Pulse Resp BP Pulse Ox O2 Del Method 12/16/22 08:11 36.5 C 90 16 160/83 H 98 Oxymask 12/16/22 07:38 81 12/16/22 03:36 36.3 C L 80 20 156/94 H 99 Oxymask 12/15/22 23:33 37.1 C 79 20 149/86 H 97 Oxymask O2 Flow Rate 12/16/22 08:11 10 12/16/22 07:38 12/16/22 03:36 10 12/15/22 23:33 10 Laboratory Results reviewed Diagnostic Findings reviewed PG Care Time/CCT Total # of Minutes Spent Total Time Spent: 120 Total Time Spent with Patient: Total time spent is greater than 50% in coordination of care (as documented) at patient's floor/unit and/or counseling patient: Prolonged Care Time Prolonged Care Time: Yes Advanced Care Planning 10439 Advanced Care Planning 30 [place] [address] IN/OBS CONSULT LVL 5,80M Patient Type New History Comprehensive Exam Comprehensive Medical Decision Making High Complexity Diagnoses Palliative care by specialist Z51.5 Advanced care planning/counseling discussion Encounter for hospice care discussion Dyspnea and respiratory abnormalities R06.00; R06.89 Cancer related pain G89.3 Acute on chronic respiratory failure with hypoxemia J96.21 Pulmonary abscess J85.1 Laterality: left Lung location: upper lobe of lung Pulmonary abscess pneumonia presence: with pneumonia 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
--- NOTE | 2022-12-16 14:29 | Procedure Note ---
Procedure Note Date of Service December 16, 2022 Note PIGTAIL CATHETER PLACEMENT NOTE: Procedure: Pigtail Catheter Chest Tube Placement Indication: Pulmonary abscess Anesthesia: 10 mL lidocaine 1% Written consent was obtained and placed on the chart. Timeout was done prior to the procedure. Prior to procedure, chest x-ray films were reviewed by myself and demonstrated a large loculated abscess. A time-out was completed verifying correct patient, procedure, site, positioning, and implant(s) or special equipment if applicable. Utilizing bedside ultrasound, chest wall was evaluated for location for optimal chest tube placement. Location between the third and fourth ribs were marked on the skin using gentle pressure. The left sided chest wall was prepped with chlorhexidine and draped in the typical sterile fashion. 10 mL of 1% Lidocaine without epinephrine was used to anesthetize the skin down to the dorsal surface of the fourth rib. Purulent fluid return confirmed entry into the pleural space. Lidocaine was injected into the pleural space for increased anesthetization. Introducer needle on syringe was inserted in perpendicular fashion taking care to ride just above the dorsal surface of the port rib. Entry into the pleural space was heralded by purulent fluid return into the syringe while under gentle aspiration. Guide wire was advanced into the pleural space without resistance and the introducer needle was subsequently removed. Scalpel was used to make small incision of the superficial tissue, parallel to the direction of the rib anatomy. Dilator was advanced uneventfully over the guide wire into the pleural space. 14 Yi Pigtail Catheter was inserted into the pleural space. Inner introducer and guide wire were removed. Drain was immediately connected to pre-prepared JUVENAL pleur-evac system. Pigtail was sutured securely in place and sterile dressing was applied. Chest tube was placed to -20 cmH2O suction. Patient tolerated procedure well. Blood Loss: Minimal Complications: None Post procedure Chest X-ray was ordered. Coding
--- NOTE | 2022-12-16 14:47 | XRay Report ---
SINGLE VIEW CHEST CLINICAL HISTORY: Chest tube placement. FINDINGS: An AP, portable, upright chest radiograph is compared to chest x-ray and chest CT dated 11/21. A left subclavian central venous infusion port is unchanged in position. The heart is enlarge d. The pulmonary vasculature is noncongested. Emphysema and chronic interstitial thickening is simila r to previous. The right lung appears clear. A left-sided chest tube has been placed. There is trace pneumothorax. A left upper lobe opacity persists and may represent consolidated lung versus an/or res idual fluid collection as seen on yesterday's CT scan. Loculated fluid is noted in the left apex. No right-sided pneumothorax is seen. The skeletal structures are osteopenic. The bony thorax is grossly intact. IMPRESSION: 1. Cardiomegaly and emphysema. 2. A left-sided chest tube has been placed. There is likely trace left-sided pneumothorax. 3. A left upper lobe opacity persists and could represent consolidation and/or residual fluid collect ion. 4. There is loculated fluid at the left apex. ACT 112: Negative or not required by law. Electronically signed by: Bennett Petersen M.D. 12/16/2022 2:45 PM
[2022-12-16 15:46] LABS: Glucose Pleural Fluid < 10 mg/dl; LDH Pleural Fluid 6412 U/L; Total Protein Pleural Fluid < 3.0 gm/dl
--- NOTE | 2022-12-16 16:27 | Infectious Disease Consult ---
Date of Consultation December 16, 2022 Assessment & Plan (1) Pulmonary abscess: #lung abscess - in setting of recently treated cavitary PNA, which based on risk factors, was thought likely related to aspiration, with underlying progressive lung ca. Consideration for empyema noted at time. -pt worsened after completion of course of abx -absence of leukocytosis or significant L shift on admission -on unasyn but with limited efficacy given contained lung abscess -pt with ongoing aspiration- witnessed choking episode -underlying lung ca with brain mets- now to be discharged on hospice -s/p chest tube placement today -12/15 blood cultures NGTD. 12/16 pleural fluid cxs pending. Plan Rec: Agree with unasyn 3 g IV q6, f/u lung abscess cultures. Further abx course to be determined according to pt preference/GOC determined in collaboration with palliative care. Consultation Information This patient recommendation is based on a telemedicine consult request which was completed asynchronously through chart review and information provided by the primary physician. The patient was not seen or examined today. The evaluation is consultative in nature and all patient care and treatment decisions can either be accepted or rejected by the patient's primary hospital-based treating physician using their own independent medical judgment for their patient. Car Installations Supervisor contact information: Please call [facility] Call Center . (Phone Number For Physician Use Only) Time Spent Reviewing Chart: 31+ minutes History of Present Illness Attending Physician: Sedrick Barkley DO History of Present Illness ID consult requested for worsening lung abscess in this 62-year-old female, past medical history of small cell lung cancer, with brain metastases,status post 6 cycles of etoposide/carboplatinum with concurrent thoracic radiation completed in September 2020, followed by prophylactic whole brain irradiation completed November 2020, relapsed with further progression despite tx, seen by [facility] neurosurgery and started on bevacizumab 06/27/2022, last dose bevacizumab on 10/25/2022, recurrent esophageal stricture, with periodic dilation, arthritis, CKD, recently admitted on 11/07/2022 with left shoulder and posterior chest discomfort. CTA showed no pulmonary emboli, increased pericardial effusion with new trace left pleural effusion, left upper and lower lobe lesions appear similar to 10/14 and progressive left upper and left lower lobe opacities which may represent postobstructive pneumonitis with a new centrally cavitary consolidative focus within the lingula measuring 2.8 cm favoring cavitary pneumonia although follow-up was recommended to exclude malignancy. TTE with normal LV size and EF 55-60%. She had no significant cough that admission or fevers but it was noted she was on chronic steroids. 11/07 blood cultures were negative. Epidemiological risk factors were reviewed with patient and spouse at time of ID consult. 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 Due to her ongoing risk of aspiration, common postobstructive bacterial etiologies were considered to be most important. Histo urine antigen, serum cryptococcal antigen, serum Aspergillus antigen, serum beta D glucan, and IGRA TB test were ordered. Histo urine antigen, cryptococcal antigen Aspergillus antigen and beta D glucan were negative. IGRA TB test result was intermediate. Patient was treated with Zosyn with slow improvement and plan was to treat with Zosyn x7 days and if patient discharged, to transition to Augmentin 875 mg p.o. every 12+ Cipro 500 mg p.o. every 12 to complete total course 10 days with repeat lung imaging afterwards. If insufficient clinical improvement bronchoscopy with BAL bacterial, mycobacterial and AFB cultures, BAL Aspergillus antigen and beta D glucan, BAL PJP PCR and biopsy if possible of cavitary lesion were recommended as well as MRI brain to assess for etiologies that cause cavitary lesions in lung and DENTAL ASSISTANT MEDICAL ASSISTANT. Pulmonary discussed with radiology and per note on 11/19, patient likely with empyema but given location, patient would likely warrant VATS or pleuroscopy for definitive management. Patient and fami ly agreed with antibiotics and short-term with follow-up CT to be performed outpatient. Patient was discharged that day. Patient presents to the ED on 12/15/2022 reporting that after stopping Augmentin, she developed worsening left upper chest pain and difficulty breathing. Patient and report that they attempted to get hospice involved earlier this week but this was apparently declined given that she had recently received chemotherapy. They are amenable to further discussions with palliative care as patient has had progressively worsening weakness for months. In the ED, temperature was 36.6, heart rate 100, respiratory rate 19, O2 saturation 91% on 2 L nasal cannula, blood pressure 124/75. Admission labs significant for WBC 9.08, 83.3% neutrophils, hemoglobin 10.7, creatinine 1.09, lactate 2.8, procalcitonin 0.19, negative COVID/flu/RSV PCR, negative nasal MRSA PCR. Portable chest x-ray showed left lung atelectasis, likely of left upper lobe, is again seen and likely increased from prior exam. CT chest with contrast showed left upper lung fluid collection increased in size from prior exam concerning for enlarging pulmonary abscess with empyema considered less likely and collapse of left upper lobe is again noted. Patient was seen by pulmonary who noted in consultation the patient had a witnessed choking episode at time of examination with desaturation. VATS versus IR guided drainage of pulmonary abscess were suggested. It was noted that it was unlikely that antibiotics are reaching the abscess. IGRA TB test was reordered. 12/15 blood cultures NGTD. 12/16 pleural fluid cxs pending. Patient is on Unasyn. Patient is also on dexamethasone 4 mg twice a day. Pt underwent chest tube drainage today with purulent fluid removed. She was also seen by palliative care and is to be arranged for hospice on discharge. Allergies Allergy/AdvReac Type Severity Reaction Status Date / Time lisinopril AdvReac Unknown Cough Verified 12/15/22 10:12 Home Medications Medication Instructions Recorded Confirmed Type pregabalin 150 mg capsule 150 mg PO BID #60 caps 04/02/22 12/15/22 Rx meclizine 25 mg tablet 25 mg PO Q6H PRN dizziness #60 tabs 04/30/22 12/15/22 Rx ondansetron HCl 4 mg tablet 4 mg PO Q8H PRN nausea and 10/14/22 12/15/22 Rx vomiting #30 tabs pantoprazole 40 mg granules 40 mg PO BID 10/14/22 12/15/22 History delayed-release for susp in packet venlafaxine 75 mg tablet 75 mg PO QAM 11/06/22 12/15/22 History amlodipine 10 mg tablet 10 mg PO QAM 11/26/22 12/15/22 History benzonatate 100 mg capsule 100 mg PO TID PRN cough #30 caps 11/26/22 12/15/22 Rx dexamethasone 2 mg tablet 4 mg PO BID 11/26/22 12/15/22 History lorazepam 0.5 mg tablet 0.5 - 1 mg PO Q8H PRN anxiety #30 12/02/22 12/15/22 Rx tabs albuterol sulfate 90 mcg/actuation 2 inh inhalation Q6H PRN Shortness 12/15/22 12/15/22 History aerosol inhaler Of Breath magnesium 200 mg tablet 400 mg PO DAILY 12/15/22 12/15/22 History Patient History Medical History Abscess in lung...no sx intervention at this time /hospitalized recently for pneumonia [facility] d/c'd 11/19/22 O2 2 L Acute ITP hx Advanced care planning/counseling discussion Ambulatory dysfunction Anemia hx Anxiety Arthritis Bilat Knees & lower back Cancer related pain Chronic kidney disease, stage 3 (moderate) Chronic steroid use CKD (chronic kidney disease) stage 3, GFR 30-59 ml/min Depression Dysphagia Dyspnea Dyspnea and respiratory abnormalities Encounter for hospice care discussion Esophageal stenosis Esophageal ulcer hx/radiation related GERD (gastroesophageal reflux disease) H/O idiopathic thrombocytopenic purpura (09/2020) treated w/ steroids History of blood transfusion History of COVID- ? 2020 History of recent hospitalization [facility] FOR PNEUMONIA/O2 2 L CONTINUES/SOB AND COUGH CONTINUES NO CHANGE...F/U DA NOVEMBER 28 - TRY TO WEAN OFF O2 A FEW DAYS AGO PT WAS ABLE TO BE OFF OXYGEN FOR 3 HR MAX - O2 91-92 % Hypercholesterolemia Hypertension Hypertension Medical marijuana use patient has not used since march 2021 Palliative care by specialist Pericardial effusion PNA (pneumonia) cavitary PNA, post obstructive Port-A-Cath in place LEFT /POWER PORT 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) Radiation esophagitis Restless leg syndrome ? official dx Small cell lung cancer (04/21/20) current chemo tx/mets to brain hx radiation chest and brain Surgical History H/O arthroscopic knee surgery 1998 RIGHT/ 2010 LEFT H/O tubal ligation 1991 H/O: section x2 1987 & 1982 History of bronchoscopy (04/21/20) 04/21/2020 - with positive biopsy History of esophagogastroduodenoscopy (EGD) History of excision of pilonidal cyst 1987 History of open reduction and internal fixation (ORIF) procedure (07/2020) L ankle secondary to fracture History of tooth extraction molars Port-A-Cath in place (05/25/20) Insertion of Mediport Left Subclavian with Fluoroscopy Dr. Ramos 05/25/2020 power port S/P carpal tunnel release 1989' RT / 2014 LEFT S/P tonsillectomy Age 4 Family History Mother , Passed age 64 of pancreatic cancer Cancer Hypertension Father Hearing loss Grandmother (Maternal) , Passed age 79 of Stomach Cancer No problems noted. Uncle , Passed in 80's of Colorectal Cancer No problems noted. Brother No problems noted. Brother No problems noted. Sister No problems noted. Grandfather (Maternal) , Passed age 89 of Bladder Cancer No problems noted. Son No problems noted. Daughter Breast cancer Grandmother Cancer Grandfather Cancer Other No family history of adverse response to anesthesia No family history of allergies No family history of bleeding disorder Denies family history of Ovarian cancer Heart disease Lung cancer Asthma Social History Smoking Status: Former smoker Tobacco Type: Cigarettes Age Started Using Tobacco: 20; Age Quit Using Tobacco: 60; packs per day: 1; Cigarettes Per Day: 1 pack; Second Hand Exposure: No; Hx Alcohol Use: No Hx Substance Use: No Preferred Language: Turkmen Communication Ability: Effective Communication Ability Comment: DIFFICULTY TALKING AT TIMES/METS TO BRAIN/STEFAN DOES PAT PHONE Visual Impairment: No Limitations Hearing Ability: Normal Manager Laboratory Required: No Beliefs That Will Affect Care: None marital status: Current Living Situation: Spouse Current Living Situation Comment: Lives with Stefan in 1 story house, level entry in back current occupational status: employed 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 How many Children do You have: 0 Feels Safe at Home: Yes Childhood Exposure to Second-Hand Smoke: Yes caffeine: Yes (ice tea) during the past year weight has: remained stable Dental Care, Regularly: Yes Physical Activity Frequency: Does not Exercise Seatbelt Use: always Sunscreen Use: No Assistive Devices: Lift Chair, Oxygen - Continuous, Walker and Wheelchair Results & Data Vital Signs (Past 12 Hours) Vital Signs Temp Pulse Pulse Resp BP Pulse Ox O2 Del Method 12/16/22 15:42 36.7 C 82 16 149/80 H 97 Nasal Cannula 12/16/22 11:47 36.4 C L 99 H 16 152/80 H 92 Room Air 12/16/22 11:38 Nasal Cannula 12/16/22 11:37 95 Oxymask 12/16/22 10:00 98 Oxymask 12/16/22 08:11 36.5 C 90 16 160/83 H 98 Oxymask 12/16/22 07:38 81 O2 Flow Rate 12/16/22 15:42 3 12/16/22 11:47 12/16/22 11:38 3 12/16/22 11:37 8 12/16/22 10:00 10 12/16/22 08:11 10 12/16/22 07:38 Laboratory Results 12/16/22 Unknown Acid Fast Bacilli Smear - Pending Pleural Fluid Acid Fast Bacilli Culture - Pending 12/16/22 Unknown Gram Stain - Pending Pleural Fluid Aerobic and Anaerobic Culture - Pending 12/15/22 07:54 Aerobic Blood Culture - Preliminary Blood No growth in Aerobic bottle after 24 hours. Anaerobic Blood Culture - Preliminary No growth in Anaerobic bottle after 24 hours. 12/15/22 07:24 Aerobic Blood Culture - Preliminary Blood No growth in Aerobic bottle after 24 hours. Anaerobic Blood Culture - Preliminary No growth in Anaerobic bottle after 24 hours. 12/16/22 12/16/22 12/16/22 Unknown Unknown 10:20 WBC RBC Hgb Hct MCV MCH MCHC RDW Std Deviation RDW Coeff of Sebastián Plt Count MPV Immature Gran % (Auto) Neut % (Auto) Lymph % (Auto) [place] % (Auto) Eos % (Auto) Baso % (Auto) Neut # (Auto) Lymph # (Auto) [place] # (Auto) Eos # (Auto) Baso # (Auto) Immature Gran # (Auto) Sodium Potassium Chloride Carbon Dioxide Anion Gap BUN Creatinine Est Cr Clr Drug Dosing Est GFR ( Amer) Est GFR (Non-Af Amer) BUN/Creatinine Ratio Glucose Lactate 1.4 Calcium Phosphorus Magnesium Troponin I High Sens Pleural pH Pleural Total Protein < 3.0 Pleural LDH 6412 Pleural Glucose < 10 12/16/22 12/16/22 12/16/22 08:16 02:00 02:00 WBC RBC Hgb Hct MCV MCH MCHC RDW Std Deviation RDW Coeff of Sebastián Plt Count MPV Immature Gran % (Auto) Neut % (Auto) Lymph % (Auto) [place] % (Auto) Eos % (Auto) Baso % (Auto) Neut # (Auto) Lymph # (Auto) [place] # (Auto) Eos # (Auto) Baso # (Auto) Immature Gran # (Auto) Sodium 144 Potassium 4.1 Chloride 109 H Carbon Dioxide 27 Anion Gap 8 BUN 27 H Creatinine 1.02 Est Cr Clr Drug Dosing 55.4 Est GFR ( Amer) 69.2 Est GFR (Non-Af Amer) 59.7 BUN/Creatinine Ratio 26.5 H Glucose 120 H Lactate 2.2 H* Calcium 8.9 Phosphorus 3.7 Magnesium 1.9 Troponin I High Sens 14.8 H Pleural pH Pleural Total Protein Pleural LDH Pleural Glucose 12/16/22 12/15/22 02:00 19:42 WBC 8.60 RBC 2.73 L Hgb 9.3 L Hct 28.1 L MCV 102.9 H MCH 34.1 H MCHC 33.1 RDW Std Deviation 74.8 H RDW Coeff of Sebastián 19.9 H Plt Count 104 L MPV 11.0 Immature Gran % (Auto) 2.9 Neut % (Auto) 90.0 Lymph % (Auto) 2.7 [place] % (Auto) 4.2 Eos % (Auto) 0.0 Baso % (Auto) 0.2 Neut # (Auto) 7.74 H Lymph # (Auto) 0.23 L [place] # (Auto) 0.36 Eos # (Auto) 0.00 Baso # (Auto) 0.02 Immature Gran # (Auto) 0.25 H Sodium Potassium Chloride Carbon Dioxide Anion Gap BUN Creatinine Est Cr Clr Drug Dosing Est GFR ( Amer) Est GFR (Non-Af Amer) BUN/Creatinine Ratio Glucose Lactate Calcium Phosphorus Magnesium Troponin I High Sens 15.2 H Pleural pH Pleural Total Protein Pleural LDH Pleural Glucose Diagnostic Findings Chest X-Ray 12/15/22 06:38 XR chest 1V not portable CLINICAL HISTORY: Chest pain, nonspecific TECHNIQUE: Single frontal radiograph of the chest was obtained. Comparison: Comparison is made to chest radiograph 11/07/[address] chest 11/18/2022 FINDINGS: A port catheter is seen. The cardiomediastinal silhouette is obscured. Opacities in the left lung compatible with left upper lobe atelectasis. Superimposed aspiration/pneumonia cannot be excluded. No evidence of pleural effusion or pneumothorax. IMPRESSION: Left lung atelectasis, likely of the left upper lobe, is again seen and likely increased from prior exam. Superimposed left aspiration/pneumonia cannot be entirely excluded. ACT 112: Negative or not required by law. Electronically signed by: Silvino Raphael M.D. 12/15/2022 8:[address] 12/15/22 10:12 CT chest diagnostic w con CLINICAL HISTORY: lung abscess TECHNIQUE: Multidetector row helical CT of the chest was performed with intravenous contrast. Coronal and sagittal reformations were obtained. Automated dose lowering techniques and/or adjustment according to patient size were utilized for this exam. CT DOSE: 284.13 mGy.cm Comparison: Comparison is made to CT chest 11/18/2022 FINDINGS: Lungs and pleura: Redemonstration of a gas and fluid collection in the left lung measuring approximately 81 x 42 mm, increased from prior exam with increased fluid content is decreased gaseous content. There is collapse of the right upper lung. There is bibasilar atelectasis with small left pleural effusion. Heart and pericardium: There is a small pericardial effusion. Vessels: Unremarkable. Mediastinum and grace: Unremarkable. Chest wall and lower neck: Unremarkable. Abdomen: Unremarkable. Bones: Degenerative changes in the thoracic spine. IMPRESSION: 1. Left upper lung fluid collection has increased in size from prior exam. Findings are concerning for enlarging pulmonary abscess. Empyema is considered less likely. 2. Collapse of the left upper lung is again noted. 3. Small left pleural effusion, unchanged from prior exam, bibasilar atelectasis is noted. ACT 112: Negative or not required by law. Electronically signed by: Silvino Raphael M.D. 12/15/2022 11:24 AM Chest X-Ray 12/16/22 14:24 SINGLE VIEW CHEST CLINICAL HISTORY: Chest tube placement. FINDINGS: An AP, portable, upright chest radiograph is compared to chest x-ray and chest CT dated 12/15/2022. A left subclavian central venous infusion port is unchanged in position. The heart is enlarged. The pulmonary vasculature is noncongested. Emphysema and chronic interstitial thickening is similar to previous. The right lung appears clear. A left-sided chest tube has been placed. There is trace pneumothorax. A left upper lobe opacity persists and may represent consolidated lung versus an/or residual fluid collection as seen on yesterday's CT scan. Loculated fluid is noted in the left apex. No right-sided pneumothorax is seen. The skeletal structures are osteopenic. The bony thorax is grossly intact. IMPRESSION: 1. Cardiomegaly and emphysema. 2. A left-sided chest tube has been placed. There is likely trace left-sided pneumothorax. 3. A left upper lobe opacity persists and could represent consolidation and/or residual fluid collection. 4. There is loculated fluid at the left apex. ACT 112: Negative or not required by law. Electronically signed by: Bennett Petersen M.D. 12/16/2022 2:45 PM Medications Administered Current Medications Albuterol (Albuterol Hfa 8 Gm Inhaler) 2 puffs INH PRN PRN; Protocol PRN Reason: Wheezing Stop: 01/14/23 12:59 Heparin Sodium (Porcine) (Heparin Sod 5,000 Unit/0.5 Ml Vial) 5,000 units SQ Q12 DELANEY Stop: 01/14/23 13:14 Last Admin: 12/16/22 08:21 Dose: 5,000 units Heparin Sodium (Porcine) (Heparin 100 Unit/Ml 5ml Flush) 5 ml FLUSH PRN PRN PRN Reason: Flush Stop: 01/15/23 03:03 Sodium Chloride (Nss 1000ml) 1,000 mls @ 75 mls/hr IV .[id number] [facility] Stop: 01/14/23 09:59 Last Admin: 12/16/22 15:06 Dose: 75 mls/hr Ampicillin Sodium/Sulbactam Sodium 3,000 mg/ Sodium Chloride 108 mls @ 200 mls/hr IV Q6H [facility]; Protocol Stop: 12/22/22 16:44 Last Infusion: 12/16/22 11:42 Dose: Infused Dexamethasone 4 mg/ Syringe 1 mls @ 1 mls/min IV BID DELANEY Stop: 01/14/23 20:59 Last Admin: 12/16/22 08:21 Dose: 1 mls/min Acetaminophen (Ofirmev) 1,000 mg in 100 mls @ 400 mls/hr IV Q8H PRN PRN Reason: Pain or Fever Stop: 12/18/22 20:48 Last Infusion: 12/15/22 21:40 Dose: Infused Lorazepam (Lorazepam 0.5 Mg Tab) 0.5 mg PO PRN PRN PRN Reason: Anxiety Stop: 01/14/23 12:58 Morphine Sulfate (Morphine Sulfate 2 Mg/Ml Carp) 2 mg IV Q2H PRN PRN Reason: Chest Pain Stop: 12/29/22 09:59 Last Admin: 12/15/22 19:28 Dose: 2 mg Pantoprazole Sodium (Pantoprazole 40 Mg Tab) 40 mg PO BID [facility] Stop: 01/15/23 20:59 Pregabalin (Pregabalin 150 Mg Cap) 150 mg PO BID [facility] Stop: 01/14/23 20:59 Last Admin: 12/16/22 10:25 Dose: Not Given Venlafaxine HCl (Venlafaxine Hcl 37.5 Mg Tab) 75 mg PO QAM [facility] Stop: 01/14/23 12:59 Last Admin: 12/16/22 10:25 Dose: Not Given (1) Pulmonary abscess Laterality: left Lung location: upper lobe of lung Pulmonary abscess pneumonia presence: with pneumonia Qualified Code(s): J85.1 - Abscess of lung with pneumonia
[2022-12-16] MEDS: MoRPHine SULFATE 2 MG/ML CARP IV PRN (17:31)
--- NOTE | 2022-12-16 17:55 | Pulmonology Progress Note ---
Date of Service December 16, 2022 Assessment & Plan (1) Pulmonary abscess: (2) Acute on chronic respiratory failure with hypoxemia: (3) 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: Plan I placed a 14 [place] pigtail catheter 12/16/2022 in the pulmonary abscess which is draining foul-smelling purulent material. Approximately 250 mL of fluid has been aspirated thus far. Continue chest tube to suction at -30 cm H2O and continue saline flushes with 30 mL every 4 hours. We will hold on dornase or tPA instillation given that this is an intrapulmonary abscess. Continue broad-spectrum antibiotics. Patient and are understanding of the diagnosis and treatment plan. They are appreciative and all questions answered to their satisfaction. We will continue to follow. Thank you for the consultation. Admission and Anticipated Discharge Date Admission Date: December 15, 2022 Subjective Patient with chest pressure and shortness of breath on the left side. This improved after placement of the pigtail catheter. She is now breathing much easier. Review of Systems Review of Systems: All systems reviewed & are unremarkable except as noted in HPI & below Physical Exam Physical Exam: Constitutional: No acute distress HEENT: EOMI, PERRLA, thick neck Respiratory system: Decreased entry bilaterally, no wheeze, no rhonchi, positive crackles bilateral lower lobes CVS: S1-S2 positive, no murmurs or gallops, distant heart sounds Abdomen: Soft, nontender, nondistended, positive bowel sounds x4, obese Extremities: +2 pulses bilaterally radialis/ dorsalis pedis, no cyanosis, no edema Neuro: Awake alert oriented x3 Psych: Normal mood and affect G/U: No [place] Skin: no rashes, warm and dry Lymphatic: no cervical or axillary lymphadenopathy Results & Data Results & Data Vital Signs (Past 12 Hours) Vital Signs Temp Pulse Pulse Resp BP Pulse Ox O2 Del Method 12/16/22 16:54 81 12/16/22 15:42 36.7 C 82 16 149/80 H 97 Nasal Cannula 12/16/22 11:47 36.4 C L 99 H 16 152/80 H 92 Room Air 12/16/22 11:38 Nasal Cannula 12/16/22 11:37 95 Oxymask 12/16/22 10:00 98 Oxymask 12/16/22 08:11 36.5 C 90 16 160/83 H 98 Oxymask 12/16/22 07:38 81 O2 Flow Rate 12/16/22 16:54 12/16/22 15:42 3 12/16/22 11:47 12/16/22 11:38 3 12/16/22 11:37 8 12/16/22 10:00 10 12/16/22 08:11 10 12/16/22 07:38 PG Care Time/CCT Total # of Minutes Spent Total Time Spent with Patient: Total time spent is greater than 50% in coordination of care (as documented) at patient's floor/unit and/or counseling patient: Coding Level of Care Code 25510 SUB INP/OBS CARE 3/50MIN Diagnoses Pulmonary abscess J85.2 Acute on chronic respiratory failure with hypoxemia J96.21 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
--- NOTE | 2022-12-16 18:13 | Billing Data ---
Date of Service December 16, 2022 Coding Level of Care Code 52646 SUB INP/OBS CARE MIN
[2022-12-16] MEDS: PANTOprazole 40 MG TAB PO SCH (20:24)
[2022-12-16 23:03] LABS: A calco-baum cmplx NotReported Not Detected (NotDetected); Bact fragilis Not Reported Not Detected (NotDetected); C auris Not Reported Not Detected (NotDetected); Calbicans Not Reported Not Detected (NotDetected); Candida glabrata Not Reported Not Detected (NotDetected); Candida krusei Not Reported Not Detected (NotDetected); Cneoformans/gatti Not Reported Not Detected (NotDetected); Cparapsilosis Not Reported Not Detected (NotDetected); Ctropicalis Not Reported Not Detected (NotDetected); E cloacae compx Not Reported Not Detected (NotDetected); Efaecalis Not Reported Not Detected (NotDetected); Efaecium Not Reported Not Detected (NotDetected); Enterobacterales Not Reported Not Detected (NotDetected); Escherichia coli Not Reported Not Detected (NotDetected); H influenzae Not Reported Not Detected (NotDetected); K aerogenes Not Reported Not Detected (NotDetected); Koxytoca Not Reported Not Detected (NotDetected); Kpneumoniae grp Not Reported Not Detected (NotDetected); Lmonocyt Not Reported Not Detected (NotDetected); N meningitidis Not Reported Not Detected (NotDetected); P aeruginosa Not Reported Not Detected (NotDetected); Proteus spp Not Reported Not Detected (NotDetected); Salmonella spp Not Reported Not Detected (NotDetected); Smarcescens Not Reported Not Detected (NotDetected); Staph lugdunensis Not Reported Not Detected (NotDetected); Staph spp. Not Reported Not Detected (NotDetected); Staphaureus Not Reported Not Detected (NotDetected); Staphepi Not Reported Not Detected (NotDetected); Stenmaltophilia Not Reported Not Detected (NotDetected); Strep agal(GrpB) Not Reported Not Detected (NotDetected); Strep pneum Not Reported Not Detected (NotDetected); Strep pyog (GrpA) Not Reported Not Detected (NotDetected); Strep spp Not Reported Not Detected (NotDetected)
[2022-12-17] MEDS: SODIUM CHLORIDE 0.9% 1000ML 1,000 ML IV SCH ×2 (03:33→16:06)
[2022-12-17] MEDS: MoRPHine SULFATE 2 MG/ML CARP IV PRN ×2 (03:35→10:12)
[2022-12-17] MEDS: AMPICILLIN/SULBACTAM SOD 3,000 MG in 0.9 % SODIUM CHLORIDE 100 ML IV SCH ×4 (04:47→22:36)
--- NOTE | 2022-12-17 06:43 | Hospitalist Progress Note ---
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 Antoine and decision to continue with hospice care and DNR/DNI code status. #Cavitary PNA Patient s/p extended course of abx cavitary pneumonia. Patient has had worsening of symptoms the last several days with increased chest pain. CT showed interval enlargement of the abscess now 8.[address] at last admit 5.3 x 3.9 cm. Patient would like to proceed with treatment at this time. Patient was evaluated by pulm on last admit - bronch was deemed high risk given pericardial effusion (chronic per cards). Workup at that time was negative for bacteremia, crypto ag, histo ag, aspergillus ag, and b-d glucan. Quantiferon gold was indeterminate, repeat. MRSA nares - neg. IV abx with Unasyn. Dr. Antoine placed a chest tube 12/16. Chest tube to suction. Confirmed location with CXR. ID on board to help guide abx duration. [] Unasyn 3g Q6H [] CT to suction, PleurX for d/c? [] IVF 75 mL/hr NS [] f/u blood cx, lung abscess cx #Goals of Care After a long discussion with palliative care patient and family have agreed to continue with hospice care. Patient will be made DNR/DNI. Focus will be on comfort and making memories with family at this time. Will work on dispo planning. As patient plans to continue with hospice heme/onc will be signing off. 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 Was having CTX. Patient has settled with hospice for dispo planning. Likely will not continue with CTX. Patient takes chronic steroids 2/2 cerebral edema. There was a plan for an MRI at [place] this coming week. Unclear if this will be done as goals of care have changed. #Acute respiratory failure with hypoxia Prior to last admission patient was on RA. Has been unable to d/c O2 following hospitalization. Patient breathing much more comfortably after CT placement - now on 3L NC. #Pericardial effusion: ECHO at last admit showed moderate sized chronic effusion, no evidence of tamponade. Per cards consult last admission this is chronic and there is no need for intervention. Will hold off on consult this admission unless there is interval progression. #Deconditioning#Weakness Patient with complicated clinical course. Would benefit from daily PT/OT while inpatient. [] PT/OT consult [] CM consult #Depression/Anxiety resume home meds #Esophageal stenosis: Plan was for esophageal dilation outpatient. Will need to hold off on this. PPI BID. [] soft diet, allow permissive aspiration #Peripheral neuropathy Resume home gabapentin Code status: DNR/DNI DVT ppx: SQ heparin 5,000 Q12 FENGI: IVF 75 mL/hr NS, soft GI diet Dispo: med/tele, hospice, palliative consulted, plan for possible PleurX (2) Chest pain: (3) 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: (4) Esophageal stenosis: (5) Peripheral neuropathy due to chemotherapy: (6) Acute respiratory failure with hypoxia: (7) Pericardial effusion: Admission and Anticipated Discharge Date Admission Date: December 15, 2022 Supervising Physician Co-Signing Physician Notes I personally examined the patient and verified all riddle points of history and exam, discussed case, and agree with decision making with Dr Daniel maldonado under control Vitals noted, in general she is resting comfortably no distress. Breathing unlabored no accessory muscle use good effort. Skin shows no rashes no pallor or icterus. Neuro without focal deficits. Chest tube draining thick somewhat purulent bloody material Lung abscessfortunately pulmonary was able to affect drainage, this should temporize the situation. Continue antibiotics. Pain controlled. With her diffuse metastatic lung cancer, after discussions with the primary team over the weekend, as well as palliative she is moving towards home with hospice. Otherwise as above Subjective Patient feeling much better today. Mild chest tube insertion site pain. Less shortness of breath. Review of Systems Review of Systems: See HPI Physical Exam Physical Exam: Gen: ill appearing female, appears older than state age, no labored breathing on NC HEENT: AT NC, EOMI, PERRL, moist mucous membranes, nares patent Resp: non-labored breathing, no accessory muscle use, decreased breath sounds throughout CV: RRR no m/r/g, clinically well perfused Abd: non-distended MSK: moves all extremities spontaneously Neuro: alert and oriented Psych: appropriate mood and affect CT in place, to suction 350mL output Results & Data Results & Data Vital Signs (Past 12 Hours) Vital Signs Temp Pulse Pulse Resp BP Pulse Ox O2 Del Method 12/17/22 03:01 36.5 C 83 18 155/83 H 96 Nasal Cannula 12/17/22 00:25 80 12/16/22 23:07 36.4 C L 86 20 147/84 H 99 Nasal Cannula 12/16/22 20:32 Nasal Cannula 12/16/22 20:07 36.5 C 87 20 155/76 H 95 Nasal Cannula O2 Flow Rate 12/17/22 03:01 3 12/17/22 00:25 12/16/22 23:07 3 12/16/22 20:32 3 12/16/22 20:07 3 Laboratory Results 12/17/22 08:26 12/17/22 08:26 Diagnostic Findings Chest X-Ray 12/16/22 14:24 SINGLE VIEW CHEST CLINICAL HISTORY: Chest tube placement. FINDINGS: An AP, portable, upright chest radiograph is compared to chest x-ray and chest CT dated 12/15/2022. A left subclavian central venous infusion port is unchanged in position. The heart is enlarged. The pulmonary vasculature is noncongested. Emphysema and chronic interstitial thickening is similar to previous. The right lung appears clear. A left-sided chest tube has been placed. There is trace pneumothorax. A left upper lobe opacity persists and may represent consolidated lung versus an/or residual fluid collection as seen on yesterday's CT scan. Loculated fluid is noted in the left apex. No right-sided pneumothorax is seen. The skeletal structures are osteopenic. The bony thorax is grossly intact. IMPRESSION: 1. Cardiomegaly and emphysema. 2. A left-sided chest tube has been placed. There is likely trace left-sided pneumothorax. 3. A left upper lobe opacity persists and could represent consolidation and/or residual fluid collection. 4. There is loculated fluid at the left apex. Chest X-Ray 12/17/22 07:00 XR chest 1V portable HISTORY: 62 years-old Female Chest tube status post placement of a left-sided chest tube COMPARISON: 12/16/2022 TECHNIQUE: AP view of the chest FINDINGS: Cardiac silhouette is enlarged. Emphysema with mild chronic interstitial coarsening. Stable positioning of the left subclavian Arvupp-r-Haac catheter. A left-sided chest tube is again noted projected over the left midlung. Probable trace residual left-sided pneumothorax. Persistent linear left upper lobe and ill-defined left basilar densities with left hemidiaphragmatic elevation and small left pleural effusion. Bones appear grossly intact. IMPRESSION: 1. A left-sided chest tube is again noted projected over the left midlung. Probable trace residual left-sided pneumothorax. 2. Left basilar and left upper lobe opacities are redemonstrated along with a small left pleural effusion. 3. Emphysema. Resident Activity Tracking Resident Involvement: Resident Care Provided Care Provided: Adult Hospital Medicine (2) Chest pain Chest pain type: unspecified Qualified Code(s): R07.9 - Chest pain, unspecified
--- NOTE | 2022-12-17 08:01 | XRay Report ---
XR chest 1V portable HISTORY: 62 years-old Female Chest tube status post placement of a left-sided chest tube COMPARISON: 12/16/2022 TECHNIQUE: AP view of the chest FINDINGS: Cardiac silhouette is enlarged. Emphysema with mild chronic interstitial coarsening. Stable positioni ng of the left subclavian Dwcgua-j-Ctae catheter. A left-sided chest tube is again noted projected ov er the left midlung. Probable trace residual left-sided pneumothorax. Persistent linear left upper lo be and ill-defined left basilar densities with left hemidiaphragmatic elevation and small left pleura l effusion. Bones appear grossly intact. IMPRESSION: 1. A left-sided chest tube is again noted projected over the left midlung. Probable trace residual le ft-sided pneumothorax. 2. Left basilar and left upper lobe opacities are redemonstrated along with a small left pleural effu jad. 3. Emphysema. ACT 112: Negative or not required by law. The above report was generated using voice recognition software. It may contain grammatical, syntax o r spelling errors. Electronically signed by: Festus Torres M.D. 12/17/2022 7:59 AM
[2022-12-17] MEDS: VENLAFAXINE HCL 37.5 MG TAB PO SCH (08:22)
[2022-12-17] MEDS: PANTOprazole 40 MG TAB PO SCH ×2 (08:24→20:33)
[2022-12-17] MEDS: dexAMETHasone 4 MG in SYRINGE 0 ML IV SCH ×2 (08:24→20:36)
[2022-12-17] MEDS: HEPARIN SOD 5,000 UNIT/0.5 ML VIAL SQ SCH ×2 (08:24→20:32)
[2022-12-17] MEDS: PREGABALIN 150 MG CAP PO SCH ×2 (08:35→20:36)
[2022-12-17 08:59] LABS: Hemoglobin 9.6 g/dl (12.0-16.0); Mean Corpuscular Hemoglobin 33.8 pg (25.0-34.0); Mean Corpuscular Volume 105.6 fL (80.0-100.0); Mean Platelet Volume 11.3 fL (9.4-12.4); Nucleated RBC # (auto) 0.04 K/uL (0-0.12); Nucleated RBC % (auto) 0.5 %; Platelet Count 135 K/uL (130-400); RDW Coefficient of Variation 20.4 % (11.5-14.5); RDW Standard Deviation 78.6 fL (36.4-46.3); Red Blood Count 2.84 M/uL (4.20-5.40); White Blood Count 7.83 K/ul (4.8-10.8)
[2022-12-17 09:28] LABS: Anisocytosis Present; Basophils # (auto) 0.03 K/uL (0-0.2); Basophils % (auto) 0.4 %; Immature Granulocytes # (auto) 0.53 K/uL (0.01-0.20); Immature Granulocytes % (auto) 6.8 %; Lymphocytes # (auto) 0.28 K/uL (1.2-3.4); Lymphocytes % (auto) 3.6 %; Monocytes # (auto) 0.43 K/uL (0.11-0.59); Monocytes % (auto) 5.5 %; Neutrophils # (auto) 6.56 K/uL (1.40-6.50); Neutrophils % (auto) 83.7 %; Polychromasia 1+
[2022-12-17 09:36] LABS: BUN Creatinine Ratio 23.5 (10-20); Calcium 9.2 mg/dl (8.6-10.3); Creatinine Clr Calc Pharmacy 55.4 ml/min; Est GFR (African American) 69.2 ml/min; Est GFR (Non-African American) 59.7 ml/min; Magnesium 1.9 mg/dl (1.7-2.4); Phosphorus 2.9 mg/dl (2.5-4.9); Potassium 3.9 mmol/L (3.5-5.1)
--- NOTE | 2022-12-17 10:32 | Pulmonology Progress Note ---
Date of Service December 17, 2022 Assessment & Plan (1) Pulmonary abscess: (2) Acute on chronic respiratory failure with hypoxemia: (3) 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: Plan I placed a 14 Turkish pigtail catheter 12/16/2022 in the pulmonary abscess which is draining foul-smelling purulent material. Approximately 350 mL of fluid has been aspirated thus far. Continue chest tube to suction at -30 cm H2O and continue saline flushes with 30 mL every 4 hours. We will hold on dornase or tPA instillation given that this is an intrapulmonary abscess. Continue broad-spectrum antibiotics. Blood cultures growing gram-negative cocci. Cultures from pulmonary abscess pending. Chest x-ray reveals improvement in cavitary lesion. We will continue to follow. Thank you for the consultation. Admission and Anticipated Discharge Date Admission Date: December 15, 2022 Subjective Patient feeling much better today. Mild chest tube insertion site pain. Less shortness of breath. Review of Systems Review of Systems: All systems reviewed & are unremarkable except as noted in HPI & below Physical Exam Physical Exam: Constitutional: No acute distress HEENT: EOMI, PERRLA, thick neck Respiratory system: Decreased entry bilaterally, no wheeze, no rhonchi, positive crackles bilateral lower lobes. Chest tube insertion site clean dry and intact. CVS: S1-S2 positive, no murmurs or gallops, distant heart sounds Abdomen: Soft, nontender, nondistended, positive bowel sounds x4, obese Extremities: +2 pulses bilaterally radialis/ dorsalis pedis, no cyanosis, no edema Neuro: Awake alert oriented x3 Psych: Normal mood and affect G/U: No [place] Skin: no rashes, warm and dry Lymphatic: no cervical or axillary lymphadenopathy Results & Data Results & Data Vital Signs (Past 12 Hours) Vital Signs Temp Pulse Pulse Resp BP Pulse Ox O2 Del Method 12/17/22 09:54 Nasal Cannula 12/17/22 07:30 36.4 C L 86 18 163/84 H Nasal Cannula 12/17/22 07:09 75 12/17/22 03:01 36.5 C 83 18 155/83 H 96 Nasal Cannula 12/17/22 00:25 80 12/16/22 23:07 36.4 C L 86 20 147/84 H 99 Nasal Cannula O2 Flow Rate 12/17/22 09:54 2 12/17/22 07:30 3 03/28/23 07:09 12/17/22 03:01 3 12/17/22 00:25 12/16/22 23:07 3 PG Care Time/CCT Total # of Minutes Spent Total Time Spent with Patient: Total time spent is greater than 50% in coordination of care (as documented) at patient's floor/unit and/or counseling patient: Coding Level of Care Code 03698 SUB INP/OBS CARE 2/35MIN Diagnoses Pulmonary abscess J85.2 Acute on chronic respiratory failure with hypoxemia J96.21 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
[2022-12-17 12:58] LABS: Quantiferon Mitogen-NIL 0.54 IU/mL; Quantiferon NIL 0.01 IU/mL; Quantiferon TB Gold Plus NEGATIVE (NEGATIVE)
--- NOTE | 2022-12-17 14:42 | Palliative Care Progress Note ---
Date of Service December 17, 2022 Assessment & Plan (1) Palliative care by specialist: Plan: Met with pt and at bedside, joined about long-term through meeting by patient's sister and niece, who live about 5 min away from pt. Niece is a PA at a local jail center and has been great help to pt. Everyone is in agreement for home with hospice. met with CM, reviewed desired DME and has plans for where he will set up her hospital bed. They have a one story ranch home so patient will be able to access all areas of her home as needed. They are planning to work on some legacy projects for grand children upon returning home - has been ordering the recommended books and activities such as Compendium Notes. (2) Cancer related pain: Plan: Increased pain with chest tube: morphine not helping. Will begin trial of Oxy IR 5mg PO q2h prn pain or dyspea and leave MS IV dose for severe/refractory symptoms unrelieved by oral meds. Orders written. (3) Dyspnea and respiratory abnormalities: Plan: see #2 above (4) Acute respiratory failure with hypoxia: (5) Pulmonary abscess: (6) Cavitary pneumonia: (7) Immunocompromised state: (8) 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: (9) Metastatic lung cancer (metastasis from lung to other site): Plan Chest tube for cavitary lung abscess May need to dc home with it, await pulm input Home with hospice when stable for dc Not comfort care per se as she needs some optimization and chest tube mgt this admission but then will dc home with comfort plan of care and home hospice. Thank you for allowing us to participate in the ongoing care of this patient. Please don't hesitate to call or page with any additional concerns. Dr. Kim Mireles DNP Director, Palliative Care Admission and Anticipated Discharge Date Admission Date: December 15, 2022 Subjective pall med follow up pain from chest tube site, would like stronger med has been craving iced tea today no other acute complaints Review of Systems Review of Systems: All systems reviewed & are unremarkable except as noted in Subjective Physical Exam Physical Exam: Chronically ill appearing,inc resp effort OOB in chair, looking more awake and alert today, color better, Chest tube on left bitemp wasting perrla, EOMIs MOSCOSO weakly BUE >> BLE generalized weakness softly distended abdomen mild intermittent confusion skin pale, few ecchymoses cool to touch AAOx3 Results & Data Vital Signs (Past 12 Hours) Vital Signs Temp Pulse Pulse Resp BP Pulse Ox Pulse Ox 12/17/22 10:00 96 12/17/22 10:38 36.4 C L 93 H 16 127/75 97 12/17/22 09:54 12/17/22 07:30 36.4 C L 86 18 163/84 H 12/17/22 07:09 75 12/17/22 03:01 36.5 C 83 18 155/83 H 96 O2 Del Method O2 Del Method O2 Flow Rate O2 Flow Rate 12/17/22 10:00 Nasal Cannula 3 12/17/22 10:38 Nasal Cannula 3 12/17/22 09:54 Nasal Cannula 2 12/17/22 07:30 Nasal Cannula 3 12/17/22 07:09 12/17/22 03:01 Nasal Cannula 3 Laboratory Results reviewed Diagnostic Findings reviewed PG Care Time/CCT Total # of Minutes Spent Total Time Spent: 66 Total Time Spent with Patient: Total time spent is greater than 50% in coordination of care (as documented) at patient's floor/unit and/or counseling patient: Coding [place] [address] SUB INP/OBS CARE 3/50MIN Patient Type Established History Comprehensive Exam Comprehensive Medical Decision Making Moderate Complexity Diagnoses Palliative care by specialist Z51.5 Cancer related pain G89.3 Dyspnea and respiratory abnormalities R06.00; R06.89 Acute respiratory failure with hypoxia J96.01 Pulmonary abscess J85.1 Laterality: left Lung location: upper lobe of lung Pulmonary abscess pneumonia presence: with pneumonia Cavitary pneumonia J18.9; J98.4 Immunocompromised state D84.9 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
[2022-12-17] MEDS: oxyCODONE HCL SOLN 5 MG/5 ML UDC PO PRN (15:54)
--- NOTE | 2022-12-17 18:22 | Billing Data ---
Date of Service December 17, 2022 Coding Level of Care Code 06205 SUB INP/OBS CARE
[2022-12-18] MEDS: AMPICILLIN/SULBACTAM SOD 3,000 MG in 0.9 % SODIUM CHLORIDE 100 ML IV SCH ×4 (04:22→22:51)
[2022-12-18] MEDS: SODIUM CHLORIDE 0.9% 1000ML 1,000 ML IV SCH ×2 (04:22→18:05)
--- NOTE | 2022-12-18 07:11 | Hospitalist Progress Note ---
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 Antoine and decision to continue with hospice care and DNR/DNI code status. #Cavitary PNA Patient s/p extended course of abx cavitary pneumonia. Patient has had worsening of symptoms the last several days with increased chest pain. CT showed interval enlargement of the abscess now 8.[address] at last admit 5.3 x 3.9 cm. Patient would like to proceed with treatment at this time. Patient was evaluated by pulm on last admit - bronch was deemed high risk given pericardial effusion (chronic per cards). Workup at that time was negative for bacteremia, crypto ag, histo ag, aspergillus ag, and b-d glucan. Quantiferon gold was indeterminate, repeat negative. MRSA nares - neg. IV abx with Unasyn. Dr. Antoine placed a chest tube 12/16. Chest tube to suction. Confirmed location with CXR. ID on board to help guide abx duration. Will defer to pulmonology on timing of transitioning to water seal. [] Unasyn 3g Q6H [] CT to suction, PleurX for d/c? [] IVF 75 mL/hr NS [] f/u blood cx, lung abscess cx - gram negative cocci #Goals of Care After a long discussion with palliative care patient and family have agreed to continue with hospice care. Patient will be made DNR/DNI. Focus will be on comfort and making memories with family at this time. Will work on dispo planning. As patient plans to continue with hospice heme/onc will be signing off. 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 Was having CTX. Patient has settled with hospice for dispo planning. Likely will not continue with CTX. Patient takes chronic steroids 2/2 cerebral edema. There was a plan for an MRI at [place] this coming week. Unclear if this will be done as goals of care have changed. #Acute respiratory failure with hypoxia Prior to last admission patient was on RA. Has been unable to d/c O2 following hospitalization. Patient breathing much more comfortably after CT placement - now on 3L NC. #Pericardial effusion: ECHO at last admit showed moderate sized chronic effusion, no evidence of tamponade. Per cards consult last admission this is chronic and there is no need for intervention. Will hold off on consult this admission unless there is interval progression. #Deconditioning#Weakness Patient with complicated clinical course. Would benefit from daily PT/OT while inpatient. [] PT/OT consult [] CM consult #Depression/Anxiety resume home meds #Esophageal stenosis: Plan was for esophageal dilation outpatient. Will need to hold off on this. PPI BID. [] soft diet, allow permissive aspiration #Peripheral neuropathy Resume home gabapentin Code status: DNR/DNI DVT ppx: SQ heparin 5,000 Q12 FENGI: IVF 75 mL/hr NS, soft GI diet Dispo: med/tele, hospice, palliative consulted, plan for possible PleurX (2) Chest pain: (3) 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: (4) Esophageal stenosis: (5) Peripheral neuropathy due to chemotherapy: (6) Acute respiratory failure with hypoxia: (7) Pericardial effusion: Admission and Anticipated Discharge Date Admission Date: December 15, 2022 Supervising Physician Co-Signing Physician Notes I personally examined the patient and verified all riddle points of history and exam, discussed case, and agree with decision making with Dr Sanchez pain under control mostly - a bit bad when i see her but IV morphine coming momentarily - and this is the first pain was uncontrolled beyond PO meds in a while Vitals noted, in general she is resting comfortably no distress. Breathing unlabored no accessory muscle use good effort. Skin shows no rashes no pallor or icterus. Neuro without focal deficits. Chest tube still draining thick somewhat purulent bloody material Lung abscessfortunately pulmonary was able to affect drainage, this should temporize the situation. Continue antibiotics. Pain controlled overall - but if need for IV breakthrough persists then will escalate baseline regimen. With her diffuse metastatic lung cancer, after discussions with the primary team over the weekend, as well as palliative she is moving towards home with hospice. main reason for ongoing hospitalization is chest tube still needing to be @ suction. Otherwise as above Subjective Patient breathing more easily. Pain at CT site, manageable with pain medications. No fevers or chills. Review of Systems Review of Systems: See HPI Physical Exam Physical Exam: Gen: ill appearing female, appears older than state age, no labored breathing on NC HEENT: AT NC, EOMI, PERRL, moist mucous membranes, nares patent Resp: non-labored breathing, no accessory muscle use, decreased breath sounds throughout CV: RRR no m/r/g, clinically well perfused Abd: non-distended MSK: moves all extremities spontaneously Neuro: alert and oriented Psych: appropriate mood and affect CT in place, to suction - thick purulent discharge present Results & Data Results & Data Vital Signs (Past 12 Hours) Vital Signs Temp Pulse Pulse Resp BP Pulse Ox O2 Del Method 12/18/22 07:06 75 12/18/22 03:27 36.6 C 81 18 164/99 H 100 Nasal Cannula 12/17/22 22:56 36.7 C 87 18 145/95 H 97 Nasal Cannula 12/17/22 19:35 Nasal Cannula O2 Flow Rate 12/18/22 07:06 12/18/22 03:27 3 12/17/22 22:56 3 12/17/22 19:35 2 Laboratory Results 12/18/22 07:33 12/18/22 07:33 Resident Activity Tracking Resident Involvement: Resident Care Provided Care Provided: Adult Hospital Medicine (2) Chest pain Chest pain type: unspecified Qualified Code(s): R07.9 - Chest pain, unspecified
[2022-12-18] MEDS: dexAMETHasone 4 MG in SYRINGE 0 ML IV SCH ×2 (08:09→20:25)
[2022-12-18] MEDS: VENLAFAXINE HCL 37.5 MG TAB PO SCH (08:09)
[2022-12-18] MEDS: PANTOprazole 40 MG TAB PO SCH ×2 (08:10→20:30)
[2022-12-18] MEDS: HEPARIN SOD 5,000 UNIT/0.5 ML VIAL SQ SCH ×2 (08:10→20:28)
[2022-12-18] MEDS: PREGABALIN 150 MG CAP PO SCH ×2 (08:14→20:32)
[2022-12-18 08:25] LABS: Hematocrit (blood only) 30.6 % (37.0-47.0); Hemoglobin 9.9 g/dl (12.0-16.0); Mean Corpuscular Hemoglobin 33.2 pg (25.0-34.0); Mean Corpuscular Hgb Conc 32.4 g/dL (32.0-36.0); Mean Corpuscular Volume 102.7 fL (80.0-100.0); Mean Platelet Volume 11.5 fL (9.4-12.4); Nucleated RBC # (auto) 0.05 K/uL (0-0.12); Nucleated RBC % (auto) 0.7 %; Platelet Count 131 K/uL (130-400); RDW Coefficient of Variation 19.9 % (11.5-14.5); Red Blood Count 2.98 M/uL (4.20-5.40); White Blood Count 7.49 K/ul (4.8-10.8)
[2022-12-18] MEDS: oxyCODONE HCL SOLN 5 MG/5 ML UDC PO PRN (08:37)
[2022-12-18 08:52] LABS: Basophils # (auto) 0.04 K/uL (0-0.2); Basophils % (auto) 0.5 %; Immature Granulocytes # (auto) 0.71 K/uL (0.01-0.20); Immature Granulocytes % (auto) 9.5 %; Lymphocytes # (auto) 0.31 K/uL (1.2-3.4); Lymphocytes % (auto) 4.1 %; Monocytes # (auto) 0.34 K/uL (0.11-0.59); Monocytes % (auto) 4.5 %; Neutrophils # (auto) 6.09 K/uL (1.40-6.50); Neutrophils % (auto) 81.4 %; Tear Drop Cells 1+
[2022-12-18 09:16] LABS: Calcium 9.1 mg/dl (8.6-10.3); Magnesium 1.9 mg/dl (1.7-2.4)
[2022-12-18 09:55] LABS: BUN Creatinine Ratio 22.5 (10-20); Creatinine Clr Calc Pharmacy 51.7 ml/min; Est GFR (African American) 62.5 ml/min; Est GFR (Non-African American) 53.9 ml/min; Phosphorus 3.1 mg/dl (2.5-4.9)
--- NOTE | 2022-12-18 10:11 | XRay Report ---
SINGLE VIEW CHEST CLINICAL HISTORY: Chest tube. FINDINGS: An AP, portable, upright chest radiograph is compared to chest x-ray dated 12/09/2022. Corre lation is made with chest CT dated 12/15/2022. A left subclavian central venous infusion port is uncha nged in position. The heart is enlarged. The pulmonary vasculature is noncongested. Emphysema and chr onic interstitial thickening is similar to previous. The right lung appears clear. A left-sided chest tube is unchanged in position. Linear atelectasis/scarring is seen in the left upper lobe. No residu al pneumothorax is clearly seen. Loculated fluid is again noted at the left apex. The skeletal struct ures are osteopenic. The bony thorax is grossly intact. IMPRESSION: 1. Cardiomegaly and emphysema. 2. A left-sided chest tube is unchanged in position. No residual pneumothorax is clearly identified. 3. Loculated fluid is again seen at the left apex. ACT 112: Negative or not required by law. Electronically signed by: Bennett Petersen M.D. 12/18/2022 10:09 AM
--- NOTE | 2022-12-18 10:24 | Pulmonology Progress Note ---
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 Approximately 500 mL of fluid has been aspirated thus far. Continue chest tube to suction at -20 cm H2O. We will DC chest tube once drainage below 100 cc/24h period. We will not discharge the patient with the chest tube in place. Continue broad-spectrum antibiotics. Gram stain from pleural fluid appears to be polymicrobial. Chest x-ray reveals improvement in cavitary lesion. No pneumothorax. We will continue to follow. Thank you for the consultation. Admission and Anticipated Discharge Date Admission Date: December 15, 2022 Subjective Patient's oxygenation and shortness of breath markedly improved compared to prior to the chest tube insertion. She has some mild pain around the chest tube insertion site. No fevers, chills or night sweats. Review of Systems Review of Systems: All systems reviewed & are unremarkable except as noted in HPI & below Physical Exam Physical Exam: Constitutional: No acute distress HEENT: EOMI, PERRLA, thick neck Respiratory system: Decreased entry bilaterally, no wheeze, no rhonchi, positive crackles bilateral lower lobes. Chest tube insertion site clean dry and intact. CVS: S1-S2 positive, no murmurs or gallops, distant heart sounds Abdomen: Soft, nontender, nondistended, positive bowel sounds x4, obese Extremities: +2 pulses bilaterally radialis/ dorsalis pedis, no cyanosis, no edema Neuro: Awake alert oriented x3 Psych: Normal mood and affect G/U: No Coombs Skin: no rashes, warm and dry Lymphatic: no cervical or axillary lymphadenopathy Results & Data Results & Data Vital Signs (Past 12 Hours) Vital Signs Temp Pulse Pulse Resp BP Pulse Ox O2 Del Method 12/18/22 07:50 36.5 C 82 18 156/91 H 99 Nasal Cannula 12/18/22 07:06 75 12/18/22 03:27 36.6 C 81 18 164/99 H 100 Nasal Cannula 12/17/22 22:56 36.7 C 87 18 145/95 H 97 Nasal Cannula O2 Flow Rate 12/18/22 07:50 3 12/18/22 07:06 12/18/22 03:27 3 12/17/22 22:56 3 PG Care Time/CCT Total # of Minutes Spent Total Time Spent with Patient: Total time spent is greater than 50% in coordination of care (as documented) at patient's floor/unit and/or counseling patient: Coding Level of Care Code 46669 SUB INP/OBS CARE 2/35MIN Diagnoses Pulmonary abscess J85.2 Acute on chronic respiratory failure with hypoxemia J96.21 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
--- NOTE | 2022-12-18 10:52 | Infectious Disease Progress Nt ---
Date of Service December 18, 2022 Assessment & Plan (1) Pulmonary abscess: Plan: #lung abscess - in setting of recently treated cavitary PNA, which based on risk factors, was thought likely related to aspiration, with underlying progressive lung ca. Consideration for empyema noted at time. -pt worsened after completion of course of abx -absence of leukocytosis or significant L shift on admission -on unasyn but with limited efficacy given contained lung abscess -pt with ongoing aspiration- witnessed choking episode -underlying lung ca with brain mets- now to be discharged on hospice -s/p chest tube placement- chest tube to be removed on discharge -12/15 blood cultures with gram negative cocci in 1 of 2 sets. 12/16 pleural fluid cxs NGTD Plan Rec: Gram negative cocci in Bcxs. As pt remains clinically stable, and lung abscess fluid without growth of organisms to date, will continue with unasyn 3 g IV q6 for now. Would repeat Bcxs if in alignment with goals of care- until gram negative cocci further identified, unclear how important it would be to document clearance. Admission and Anticipated Discharge Date Admission Date: December 15, 2022 Subjective This patient recommendation is based on a telemedicine consult request which was completed asynchronously through chart review and information provided by the primary physician. The patient was not seen or examined today. The evaluation is consultative in nature and all patient care and treatment decisions can either be accepted or rejected by the patient's primary hospital-based treating physician using their own independent medical judgment for their patient. Time Spent Reviewing Chart: 21 - 30 minutes pt has remained afebrile. BP is elevated. She is being arranged for home hospice. Plan is for CT to be removed prior to discharge Bcxs with gram negative cocci in 1 of 2 sets Results & Data Vital Signs (Past 12 Hours) Vital Signs Temp Pulse Pulse Resp BP Pulse Ox Pulse Ox 12/18/22 10:00 96 12/18/22 10:34 12/18/22 07:50 36.5 C 82 18 156/91 H 99 12/18/22 07:06 75 12/18/22 03: 36.6 C 81 18 164/99 H 100 12/17/22 22:56 36.7 C 87 18 145/95 H 97 O2 Del Method O2 Del Method O2 Flow Rate O2 Flow Rate 12/18/22 10:00 Nasal Cannula 3 12/18/22 10:34 Nasal Cannula 3 12/18/22 07:50 Nasal Cannula 3 12/18/22 07:06 12/18/22 03:27 Nasal Cannula 3 12/17/22 22:56 Nasal Cannula 3 Laboratory Results 12/16/22 Unknown Gram Stain - Final Pleural Fluid Aerobic and Anaerobic Culture - Preliminary No growth to date. 12/16/22 Unknown Acid Fast Bacilli Smear - Pending Pleural Fluid Acid Fast Bacilli Culture - Pending 12/15/22 07:54 Aerobic Blood Culture - Preliminary Blood No growth in Aerobic bottle after 48 hours. Anaerobic Blood Culture - Preliminary Gram negative cocci 12/15/22 07:24 Aerobic Blood Culture - Preliminary Blood No growth in Aerobic bottle after 48 hours. Anaerobic Blood Culture - Preliminary No growth in Anaerobic bottle after 48 hours. 12/18/22 12/18/22 12/15/22 07:33 07:33 17:29 WBC 7.49 RBC 2.98 L Hgb 9.9 L Hct 30.6 L MCV 102.7 H MCH 33.2 MCHC 32.4 RDW Std Deviation 75.0 H RDW Coeff of [place] 19.9 H Plt Count 131 MPV 11.5 Immature Gran % (Auto) 9.5 Neut % (Auto) 81.4 Lymph % (Auto) 4.1 [place] % (Auto) 4.5 Eos % (Auto) 0.0 Baso % (Auto) 0.5 Neut # (Auto) 6.09 Lymph # (Auto) 0.31 L [place] # (Auto) 0.34 Eos # (Auto) 0.00 Baso # (Auto) 0.04 Immature Gran # (Auto) 0.71 H Absolute Nucleated RBC 0.05 Nucleated RBC % (auto) 0.7 Tear Drop Cells 1+ Sodium 147 H Potassium 4.0 Chloride 111 H Carbon Dioxide 27 Anion Gap 9 BUN 25 H Creatinine 1.11 Est Cr Clr Drug Dosing 51.7 Est GFR ( Amer) 62.5 Est GFR (Non-Af Amer) 53.9 BUN/Creatinine Ratio 22.5 H Glucose 150 H Calcium 9.1 Phosphorus 3.1 Magnesium 1.9 TB Test (QFT) Gold Plus NEGATIVE TB Test (QFT) Nil 0.01 TB Test Mitogen - Nil 0.54 TB Test Ag - Nil 1 0.00 TB Test Ag - Nil 2 0.00 Diagnostic Findings Chest X-Ray 12/16/22 14:24 SINGLE VIEW CHEST CLINICAL HISTORY: Chest tube placement. FINDINGS: An AP, portable, upright chest radiograph is compared to chest x-ray and chest CT dated 12/15/2022. A left subclavian central venous infusion port is unchanged in position. The heart is enlarged. The pulmonary vasculature is noncongested. Emphysema and chronic interstitial thickening is similar to previous. The right lung appears clear. A left-sided chest tube has been placed. There is trace pneumothorax. A left upper lobe opacity persists and may represent consolidated lung versus an/or residual fluid collection as seen on yesterday's CT scan. Loculated fluid is noted in the left apex. No right-sided pneumothorax is seen. The skeletal structures are osteopenic. The bony thorax is grossly intact. IMPRESSION: 1. Cardiomegaly and emphysema. 2. A left-sided chest tube has been placed. There is likely trace left-sided pneumothorax. 3. A left upper lobe opacity persists and could represent consolidation and/or residual fluid collection. 4. There is loculated fluid at the left apex. ACT 112: Negative or not required by law. Electronically signed by: Bennett Petersen M.D. 12/16/2022 2:45 PM Chest X-Ray 12/17/22 07:00 XR chest 1V portable HISTORY: 62 years-old Female Chest tube status post placement of a left-sided chest tube COMPARISON: 12/16/2022 TECHNIQUE: AP view of the chest FINDINGS: Cardiac silhouette is enlarged. Emphysema with mild chronic interstitial coarsen ing. Stable positioning of the left subclavian [id number] catheter. A left- sided chest tube is again noted projected over the left midlung. Probable trace residual left-sided pneumothorax. Persistent linear left upper lobe and ill- defined left basilar densities with left hemidiaphragmatic elevation and small left pleural effusion. Bones appear grossly intact. IMPRESSION: 1. A left-sided chest tube is again noted projected over the left midlung. Probable trace residual left-sided pneumothorax. 2. Left basilar and left upper lobe opacities are redemonstrated along with a small left pleural effusion. 3. Emphysema. ACT 112: Negative or not required by law. The above report was generated using voice recognition software. It may contain grammatical, syntax or spelling errors. Electronically signed by: Festus Torres M.D. 12/17/2022 7:59 AM Chest X-Ray 12/18/22 07:00 SINGLE VIEW CHEST CLINICAL HISTORY: Chest tube. FINDINGS: An AP, portable, upright chest radiograph is compared to chest x-ray dated 12/09/2022. Correlation is made with chest CT dated 12/15/2022. A left subclavian central venous infusion port is unchanged in position. The heart is enlarged. The pulmonary vasculature is noncongested. Emphysema and chronic interstitial thickening is similar to previous. The right lung appears clear. A left-sided chest tube is unchanged in position. Linear atelectasis/scarring is seen in the left upper lobe. No residual pneumothorax is clearly seen. Loculated fluid is again noted at the left apex. The skeletal structures are osteopenic. The bony thorax is grossly intact. IMPRESSION: 1. Cardiomegaly and emphysema. 2. A left-sided chest tube is unchanged in position. No residual pneumothorax is clearly identified. 3. Loculated fluid is again seen at the left apex. ACT 112: Negative or not required by law. Electronically signed by: Bennett Petersen M.D. 12/18/2022 10:09 AM Medications Administered Current Medications Albuterol (Albuterol Hfa 8 Gm Inhaler) 2 puffs INH PRN PRN; Protocol PRN Reason: Wheezing Stop: 01/14/23 12:59 Heparin Sodium (Porcine) (Heparin Sod 5,000 Unit/0.5 Ml Vial) 5,000 units SQ Q12 DELANEY Stop: 01/14/23 13:14 Last Admin: 12/18/22 08:10 Dose: 5,000 units Heparin Sodium (Porcine) (Heparin 100 Unit/Ml 5ml Flush) 5 ml FLUSH PRN PRN PRN Reason: Flush Stop: 01/15/23 03:03 Sodium Chloride (Nss 1000ml) 1,000 mls @ 75 mls/hr IV .[id number] DELANEY Stop: 01/14/23 09:59 Last Admin: 12/18/22 04:22 Dose: 75 mls/hr Ampicillin Sodium/Sulbactam Sodium 3,000 mg/ Sodium Chloride 108 mls @ 200 mls/hr IV Q6H DELANEY; Protocol Stop: 12/22/22 16:44 Last Infusion: 12/18/22 05:03 Dose: Infused Dexamethasone 4 mg/ Syringe 1 mls @ 1 mls/min IV BID DELANEY Stop: 01/14/23 20:59 Last Admin: 12/18/22 08:09 Dose: 1 mls/min Acetaminophen (Ofirmev) 1,000 mg in 100 mls @ 400 mls/hr IV Q8H PRN PRN Reason: Pain or Fever Stop: 12/18/22 20:48 Last Infusion: 12/15/22 21:40 Dose: Infused Lorazepam (Lorazepam 0.5 Mg Tab) 0.5 mg PO PRN PRN PRN Reason: Anxiety Stop: 01/14/23 12:58 Last Admin: 12/17/22 10:55 Dose: 0.5 mg Morphine Sulfate (Morphine Sulfate 2 Mg/Ml Carp) 2 mg IV Q2H PRN PRN Reason: severe pain or dyspnea Stop: 12/29/22 09:59 Oxycodone HCl (Oxycodone Hcl Soln 5 Mg/5 Ml Udc) 5 mg PO Q2H PRN PRN Reason: moderate to severe pain Stop: 12/31/22 14:37 Last Admin: 12/18/22 08:37 Dose: 5 mg Pantoprazole Sodium (Pantoprazole 40 Mg Tab) 40 mg PO BID [facility] Stop: 01/15/23 20:59 Last Admin: 12/18/22 08:10 Dose: 40 mg Pregabalin (Pregabalin 150 Mg Cap) 150 mg PO BID DELANEY Stop: 01/14/23 20:59 Last Admin: 12/18/22 08:14 Dose: 150 mg Venlafaxine HCl (Venlafaxine Hcl 37.5 Mg Tab) 75 mg PO QAM [facility] Stop: 01/14/23 12:59 Last Admin: 12/18/22 08:09 Dose: 75 mg (1) Pulmonary abscess Laterality: left Lung location: upper lobe of lung Pulmonary abscess pneumonia presence: with pneumonia Qualified Code(s): J85.1 - Abscess of lung with pneumonia
[2022-12-18] MEDS: MoRPHine SULFATE 2 MG/ML CARP IV PRN (11:51)
--- NOTE | 2022-12-18 17:40 | Billing Data ---
Date of Service December 18, 2022 Coding Level of Care Code 41827 SUB INP/OBS CARE
[2022-12-19] MEDS: AMPICILLIN/SULBACTAM SOD 3,000 MG in 0.9 % SODIUM CHLORIDE 100 ML IV SCH ×4 (04:31→22:43)
[2022-12-19] MEDS: SODIUM CHLORIDE 0.9% 1000ML 1,000 ML IV SCH ×2 (05:54→20:30)
--- NOTE | 2022-12-19 07:37 | Hospitalist Progress Note ---
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 Antoine and decision to continue with hospice care and DNR/DNI code status. #Cavitary PNA Patient s/p extended course of abx cavitary pneumonia. Patient has had worsening of symptoms the last several days with increased chest pain. CT showed interval enlargement of the abscess now 8.[address] at last admit 5.3 x 3.9 cm. Patient would like to proceed with treatment at this time. Patient was evaluated by pulm on last admit - bronch was deemed high risk given pericardial effusion (chronic per cards). Workup at that time was negative for bacteremia, crypto ag, histo ag, aspergillus ag, and b-d glucan. Quantiferon gold was indeterminate, repeat negative. MRSA nares - neg. IV abx with Unasyn. Dr. Antoine placed a chest tube 12/16. Chest tube to suction. Confirmed location with CXR. ID on board to help guide abx duration. Will defer to pulmonology on timing of transitioning to water seal. [] Unasyn 3g Q6H [] CT removed 12/19, AM CXR to eval for reaccumulation [] IVF 75 mL/hr NS [] f/u blood cx, lung abscess cx - gram negative cocci #Goals of Care After a long discussion with palliative care patient and family have agreed to continue with hospice care. Patient will be made DNR/DNI. Focus will be on comfort and making memories with family at this time. Will work on dispo planning. As patient plans to continue with hospice heme/onc will be signing off. 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 Was having CTX. Patient has settled with hospice for dispo planning. Likely will not continue with CTX. Patient takes chronic steroids 2/2 cerebral edema. There was a plan for an MRI at [place] this coming week. Unclear if this will be done as goals of care have changed. #Acute respiratory failure with hypoxia Prior to last admission patient was on RA. Has been unable to d/c O2 following hospitalization. Patient breathing much more comfortably after CT guided abscess drainage - now on 2-3L NC. #Pericardial effusion: ECHO at last admit showed moderate sized chronic effusion, no evidence of tamponade. Per cards consult last admission this is chronic and there is no need for intervention. Will hold off on consult this admission unless there is interval progression. #Deconditioning#Weakness Patient with complicated clinical course. Would benefit from daily PT/OT while inpatient. [] PT/OT consult [] CM consult #Depression/Anxiety resume home meds #Esophageal stenosis: Plan was for esophageal dilation outpatient. Will need to hold off on this. PPI BID. 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 meeting w hospice when i enter the room. planning for home tomorrow. Vitals noted, in general she is resting comfortably no distress. Breathing unlabored no accessory muscle use good effort. Skin shows no rashes no pallor or icterus. Neuro without focal deficits. Chest tube removed. Lung abscessfortunately pulmonary was able to affect drainage, this should temporize the situation. Continue antibiotics. Pain controlled overall - hopefully home tomorrow w hospice Otherwise as above Subjective CT is out. Patient much more comfortable. No changes in breathing. Overall feels improved. Review of Systems Review of Systems: See HPI Physical Exam Physical Exam: Gen: ill appearing female, appears older than state age, no labored breathing on NC HEENT: AT [place], EOMI, PERRL, moist mucous membranes, nares patent Resp: non-labored breathing, no accessory muscle use, decreased breath sounds throughout CV: RRR no m/r/g, clinically well perfused Abd: non-distended MSK: moves all extremities spontaneously Neuro: alert and oriented Psych: appropriate mood and affect Results & Data Results & Data Vital Signs (Past 12 Hours) Vital Signs Temp Pulse Pulse Resp BP BP Pulse Ox 12/19/22 07:29 80 12/19/22 03:37 36.4 C L 84 18 163/89 H 176/101 H 98 12/19/22 01:06 78 12/18/22 22:49 36.7 C 81 18 176/102 H 99 12/18/22 20:38 O2 Del Method O2 Flow Rate 12/19/22 07:29 12/19/22 03:37 Nasal Cannula 2 12/19/22 01:06 12/18/22 22:49 Nasal Cannula 3 12/18/22 20:38 Nasal Cannula 3 Laboratory Results 12/19/22 09:08 12/19/22 09:08 Diagnostic Findings Chest X-Ray 12/19/22 07:00 XR chest 1V portable CLINICAL HISTORY: chest tube TECHNIQUE: Single frontal radiograph of the chest was obtained. Comparison: Comparison is made to chest radiograph 12/18/2022 FINDINGS: Left chest tube is unchanged in position. A port catheter is unchanged. Cardiomegaly is noted. Left lung atelectasis is seen and there is unchanged emphysema. No evidence of pleural effusion or pneumothorax. IMPRESSION: Left lung atelectasis is seen. There is no radiographically evident residual pneumothorax. ACT 112: Negative or not required by law. Resident Activity Tracking Resident Involvement: Resident Care Provided Care Provided: Adult Hospital Medicine (2) Chest pain Chest pain type: unspecified Qualified Code(s): R07.9 - Chest pain, unspecified
--- NOTE | 2022-12-19 08:04 | XRay Report ---
XR chest 1V portable CLINICAL HISTORY: chest tube TECHNIQUE: Single frontal radiograph of the chest was obtained. Comparison: Comparison is made to chest radiograph 12/18/2022 FINDINGS: Left chest tube is unchanged in position. A port catheter is unchanged. Cardiomegaly is noted. Left l haylee atelectasis is seen and there is unchanged emphysema. No evidence of pleural effusion or pneumoth orax. IMPRESSION: Left lung atelectasis is seen. There is no radiographically evident residual pneumothorax. ACT 112: Negative or not required by law. Electronically signed by: Silvino Raphael M.D. 12/19/2022 8:01 AM
--- NOTE | 2022-12-19 09:05 | Procedure Note ---
Procedure Note Date of Service December 19, 2022 Note The dressing from the chest tube insertion site was taken down. The sutures were removed. The chest tube was removed upon exhalation. An occlusive dressing was placed over the site. Patient tolerated the procedure well. Coding CPT Codes Pulmonary/Thoracic - Pulmonary and Thoracic: 94194 Remove lung catheter ([id number]) [facility] [place] Procedure Codes (Charges) Pulmonary/Thoracic Procedure 1: Pulmonary and Thoracic: 35013 Remove lung catheter
--- NOTE | 2022-12-19 09:06 | Pulmonology Progress Note ---
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 Antibiotics per ID. Continue broad-spectrum antibiotics. Gram stain from abscess appears to be polymicrobial. Chest x-ray reveals improvement in cavitary lesion. No pneumothorax. Patient is significantly improved compared to prior to the abscess drainage. Pulmonary to sign off at this time. Please call with questions. Thank you for the consultation. Admission and Anticipated Discharge Date Admission Date: December 15, 2022 Subjective Minimal drainage from chest tube overnight. Patient denies any complaints currently. No fevers, chills or night sweats. Review of Systems Review of Systems: All systems reviewed & are unremarkable except as noted in HPI & below Physical Exam Physical Exam: Constitutional: No acute distress HEENT: EOMI, PERRLA, thick neck Respiratory system: Decreased entry bilaterally, no wheeze, no rhonchi, positive crackles bilateral lower lobes. Chest tube insertion site clean dry and intact. CVS: S1-S2 positive, no murmurs or gallops, distant heart sounds Abdomen: Soft, nontender, nondistended, positive bowel sounds x4, obese Extremities: +2 pulses bilaterally radialis/ dorsalis pedis, no cyanosis, no edema Neuro: Awake alert oriented x3 Psych: Normal mood and affect G/U: No [place]om[place] Skin: no rashes, warm and dry Lymphatic: no cervical or axillary lymphadenopathy Results & Data Results & Data Vital Signs (Past 12 Hours) Vital Signs Temp Pulse Pulse Resp BP BP Pulse Ox 12/19/22 08:03 36.9 C 82 16 153/98 H 98 12/19/22 07:29 80 12/19/22 03:37 36.4 C L 84 18 163/89 H 176/101 H 98 12/19/22 01:06 78 12/18/22 22:49 36.7 C 81 18 176/102 H 99 O2 Del Method O2 Flow Rate 12/19/22 08:03 Nasal Cannula 2 12/19/22 07:29 12/19/22 03:37 Nasal Cannula 2 12/19/22 01:06 12/18/22 22:49 Nasal Cannula 3 PG Care Time/CCT Total # of Minutes Spent Total Time Spent with Patient: Total time spent is greater than 50% in coordination of care (as documented) at patient's floor/unit and/or counseling patient: Coding Level of Care Code 70133 SUB INP/OBS CARE 10/16MIN Diagnoses Pulmonary abscess J85.2 Acute on chronic respiratory failure with hypoxemia J96.21 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
[2022-12-19 10:00] LABS: Hematocrit (blood only) 29.7 % (37.0-47.0); Hemoglobin 9.3 g/dl (12.0-16.0); Mean Corpuscular Hemoglobin 33.2 pg (25.0-34.0); Mean Corpuscular Hgb Conc 31.3 g/dL (32.0-36.0); Mean Corpuscular Volume 106.1 fL (80.0-100.0); Mean Platelet Volume 11.3 fL (9.4-12.4); Nucleated RBC # (auto) 0.08 K/uL (0-0.12); Platelet Count 120 K/uL (130-400); RDW Coefficient of Variation 19.8 % (11.5-14.5); White Blood Count 7.64 K/ul (4.8-10.8)
[2022-12-19] MEDS: HEPARIN SOD 5,000 UNIT/0.5 ML VIAL SQ SCH ×2 (10:04→20:33)
[2022-12-19] MEDS: dexAMETHasone 4 MG in SYRINGE 0 ML IV SCH ×2 (10:05→20:33)
[2022-12-19] MEDS: VENLAFAXINE HCL 37.5 MG TAB PO SCH (10:05)
[2022-12-19] MEDS: MoRPHine SULFATE 2 MG/ML CARP IV PRN (10:05)
[2022-12-19] MEDS: PANTOprazole 40 MG TAB PO SCH ×2 (10:05→20:33)
[2022-12-19] MEDS: PREGABALIN 150 MG CAP PO SCH ×2 (10:07→20:33)
[2022-12-19 10:20] LABS: Anisocytosis Present; Basophils # (auto) 0.05 K/uL (0-0.2); Basophils % (auto) 0.7 %; Immature Granulocytes # (auto) 0.67 K/uL (0.01-0.20); Immature Granulocytes % (auto) 8.8 %; Lymphocytes % (auto) 6.5 %; Monocytes # (auto) 0.45 K/uL (0.11-0.59); Monocytes % (auto) 5.9 %; Neutrophils # (auto) 5.97 K/uL (1.40-6.50); Neutrophils % (auto) 78.1 %; Polychromasia 1+; Tear Drop Cells 1+
--- NOTE | 2022-12-19 13:09 | Palliative Care Progress Note ---
Date of Service December 19, 2022 Assessment & Plan (1) Palliative care by specialist: Plan: Psychosocial support provided. (2) Cancer related pain: Plan: No acute pain (3) Dyspnea and respiratory abnormalities: Plan: Improved. 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 Abtx will not prolong her dying given overall progression. her condition declines she will reach a time where taking PO may no longer be feasible and at that junction I would stop Abtx. DC home with hospice when stable. Thank you for allowing us to participate in the ongoing care of this patient. Please don't hesitate to call or page with any additional concerns. Dr. Kim Mireles DNP Director, Palliative Care Admission and Anticipated Discharge Date Admission Date: December 15, 2022 Subjective chest tube is out xray showing improvement does not need tube for home dc pain minimal no dyspnea generalized weakness unchanged but seems back to baseline visiting with and [facility] Intake rep. Review of Systems Review of Systems: All systems reviewed & are unremarkable except as noted in Subjective Physical Exam Physical Exam: Chronically ill appearing,inc resp effort semi reclined in bed, Awake and alert bitemp wasting with +perrla, EOMIs MOSCOSO weakly BUE >> BLE; +generalized weakness softly distended abdomen mild intermittent confusion dysarthric speech skin pale, few ecchymoses cool to touch AAOx3 Results & Data Vital Signs (Past 12 Hours) Vital Signs Temp Pulse Pulse Resp BP BP Pulse Ox 12/19/22 11:58 36.7 C 78 18 166/90 H 96 12/19/22 08:03 36.9 C 82 16 153/98 H 98 12/19/22 07:29 80 12/19/22 03:37 36.4 C L 84 18 163/89 H 176/101 H 98 12/19/22 01:06 78 O2 Del Method O2 Flow Rate 12/19/22 11:58 Nasal Cannula 2 12/19/22 08:03 Nasal Cannula 2 12/19/22 07:29 12/19/22 03:37 Nasal Cannula 2 12/19/22 01:06 PG Care Time/CCT Total # of Minutes Spent Total Time Spent: 45 Total Time Spent with Patient: Total time spent is greater than 50% in coordination of care (as documented) at patient's floor/unit and/or counseling patient: C[place] [address] SUB INP/OBS CARE 3/50MIN Patient Type Established History Comprehensive Exam Detailed Medical Decision Making Moderate Complexity Diagnoses Palliative care by specialist Z51.5 Cancer related pain G89.3 Dyspnea and respiratory abnormalities R06.00; R06.89 Acute respiratory failure with hypoxia J96.01 Pulmonary abscess J85.1 Laterality: left Lung location: upper lobe of lung Pulmonary abscess pneumonia presence: with pneumonia Cavitary pneumonia J18.9; J98.4 Immunocompromised state D84.9 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
[2022-12-19 15:49] LABS: BUN Creatinine Ratio 20.5 (10-20); Calcium 8.7 mg/dl (8.6-10.3); Creatinine Clr Calc Pharmacy 48.9 ml/min; Est GFR (African American) 58.7 ml/min; Est GFR (Non-African American) 50.6 ml/min; Magnesium 1.8 mg/dl (1.7-2.4); Phosphorus 2.5 mg/dl (2.5-4.9); Potassium 3.7 mmol/L (3.5-5.1)
[2022-12-19] MEDS: oxyCODONE HCL SOLN 5 MG/5 ML UDC PO PRN (16:21)
--- NOTE | 2022-12-19 17:22 | Billing Data ---
Date of Service December 19, 2022 Coding Level of Care Code 38735 SUB INP/OBS CARE
[2022-12-19] MEDS ORDERED: fentaNYL 12 MCG/HR TDSY TD SCH (19:00)
[2022-12-20] MEDS: CHECK fentaNYL PATCH PLACEMENT SCH ×2 (00:11→09:30)
[2022-12-20] MEDS: AMPICILLIN/SULBACTAM SOD 3,000 MG in 0.9 % SODIUM CHLORIDE 100 ML IV SCH ×2 (05:57→12:10)
[2022-12-20 06:37] LABS: Hematocrit (blood only) 25.9 % (37.0-47.0); Hemoglobin 8.4 g/dl (12.0-16.0); Mean Corpuscular Hemoglobin 33.7 pg (25.0-34.0); Mean Corpuscular Hgb Conc 32.4 g/dL (32.0-36.0); Mean Platelet Volume 11.4 fL (9.4-12.4); Nucleated RBC # (auto) 0.08 K/uL (0-0.12); Nucleated RBC % (auto) 1.2 %; Platelet Count 107 K/uL (130-400); RDW Coefficient of Variation 19.4 % (11.5-14.5); Red Blood Count 2.49 M/uL (4.20-5.40); White Blood Count 6.88 K/ul (4.8-10.8)
[2022-12-20 06:56] LABS: BUN Creatinine Ratio 18.8 (10-20); Calcium 8.3 mg/dl (8.6-10.3); Creatinine Clr Calc Pharmacy 51.2 ml/min; Est GFR (African American) 61.8 ml/min; Est GFR (Non-African American) 53.4 ml/min; Magnesium 1.7 mg/dl (1.7-2.4); Phosphorus 3.3 mg/dl (2.5-4.9); Potassium 3.8 mmol/L (3.5-5.1)
[2022-12-20 07:16] LABS: ALC (manual) 0.14 K/uL (1.2-3.4); ANC (manual) 6.26 K/uL (1.4-6.5); Lymphocytes # (manual) 0.14 K/uL (1.2-3.4); Lymphocytes % (manual) 2 %; Metamyelocytes # (manual) 0.21 K/uL (0-0); Metamyelocytes % (manual) 3 %; Monocytes # (manual) 0.21 K/uL (0.11-0.59); Monocytes % (manual) 3 %; Myelocytes # (manual) 0.21 K/uL (0-0); Myelocytes % (manual) 3 %; Neutrophils # (manual) 6.26 K/uL (1.40-6.50); Neutrophils % (manual) 91 %; Polychromasia 1+; Tear Drop Cells 1+
--- NOTE | 2022-12-20 07:39 | Hospitalist Progress Note ---
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 Antoine and decision to continue with hospice care and DNR/DNI code status. #Cavitary PNA Patient s/p extended course of abx cavitary pneumonia. Patient has had worsening of symptoms the last several days with increased chest pain. CT showed interval enlargement of the abscess now 8.[address] at last admit 5.3 x 3.9 cm. Patient would like to proceed with treatment at this time. Patient was evaluated by pulm on last admit - bronch was deemed high risk given pericardial effusion (chronic per cards). Workup at that time was negative for bacteremia, crypto ag, histo ag, aspergillus ag, and b-d glucan. Quantiferon gold was indeterminate, repeat negative. MRSA nares - neg. IV abx with Unasyn. Dr. Antoine placed a chest tube 12/16. Chest tube to suction. Confirmed location with CXR. ID on board to help guide abx duration. Will defer to pulmonology on timing of transitioning to water seal. [] Unasyn 3g Q6H [] CT removed 12/19, AM CXR to eval for reaccumulation [] IVF 75 mL/hr NS [] f/u blood cx, lung abscess cx - gram negative cocci #Goals of Care After a long discussion with palliative care patient and family have agreed to continue with hospice care. Patient will be made DNR/DNI. Focus will be on comfort and making memories with family at this time. Will work on dispo planning. As patient plans to continue with hospice heme/onc will be signing off. 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 Was having CTX. Patient has settled with hospice for dispo planning. Likely will not continue with CTX. Patient takes chronic steroids 2/2 cerebral edema. There was a plan for an MRI at [place] this coming week. Unclear if this will be done as goals of care have changed. #Acute respiratory failure with hypoxia Prior to last admission patient was on RA. Has been unable to d/c O2 following hospitalization. Patient breathing much more comfortably after CT guided abscess drainage - now on 2-3L NC. #Pericardial effusion: ECHO at last admit showed moderate sized chronic effusion, no evidence of tamponade. Per cards consult last admission this is chronic and there is no need for intervention. Will hold off on consult this admission unless there is interval progression. #Deconditioning#Weakness Patient with complicated clinical course. Would benefit from daily PT/OT while inpatient. [] PT/OT consult [] CM consult #Depression/Anxiety resume home meds #Esophageal stenosis: Plan was for esophageal dilation outpatient. Will need to hold off on this. PPI BID. 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: (4) Esophageal stenosis: (5) Peripheral neuropathy due to chemotherapy: (6) Acute respiratory failure with hypoxia: (7) Pericardial effusion: Admission and Anticipated Discharge Date Admission Date: December 15, 2022 Review of Systems Review of Systems: See HPI Physical Exam Physical Exam: Gen: ill appearing female, appears older than state age, no labored breathing on NC HEENT: AT NC, EOMI, PERRL, moist mucous membranes, nares patent Resp: non-labored breathing, no accessory muscle use, decreased breath sounds throughout CV: RRR no m/r/g, clinically well perfused Abd: non-distended MSK: moves all extremities spontaneously Neuro: alert and oriented Psych: appropriate mood and affect Results & Data Results & Data Vital Signs (Past 12 Hours) Vital Signs Temp Pulse Pulse Resp BP Pulse Ox O2 Del Method 12/20/22 02:40 36.5 C 75 18 161/95 H 97 Nasal Cannula 12/19/22 22:03 79 12/19/22 22:32 36.5 C 83 16 167/92 H 93 Nasal Cannula 12/19/22 21:00 Nasal Cannula O2 Flow Rate 12/20/22 02:40 2 12/19/22 22:03 12/19/22 22:32 2 12/19/22 21:00 (2) Chest pain Chest pain type: unspecified Qualified Code(s): R07.9 - Chest pain, unspecified
--- NOTE | 2022-12-20 08:39 | XRay Report ---
XR chest 1V portable HISTORY: Left-sided chest tube removal. COMPARISON: Chest 12/19/2022. FINDINGS: Interval removal of the left-sided chest tube. Focal lucency within left midlung zone sugge stive a residual air pocket from the drained pulmonary abscess. Linear densities within the left uppe r lung zone persist and favor subsegmental atelectasis. Left lower lobe airspace opacities are also u nchanged. The right lung is clear. Trace left pleural effusion. The heart remains mildly enlarged. Le ft subclavian Port-A-Cath terminates at the proximal SVC. IMPRESSION: Interval removal of left-sided chest tube. Focal lucency within left midlung zone persists and favors a residual air pocket from the drained pulmonary abscess. If this is located within the left major f issure than by definition this suggests a small loculated pneumothorax. ACT 112: Negative or not required by law. Electronically signed by: Francisco Aquino M.D. 12/20/2022 8:37 AM
--- NOTE | 2022-12-20 08:48 | Discharge Summary ---
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 The patient was recently admitted (11/07/22-11/19/22) and treated for a left sided lung abscess (5.3 x 3.9 cm cavitary lesion in the LUCIA) with 8 days of Zosyn and 10 days of outpatient abx with Augmentin. She never fully recovered from this abscess, but symptoms significantly worsened over the last few days. Patient did not have an oxygen requirement prior to abscess formation and has been unable to wean at home. Patient was being visited by her kids and grandchildren which may have contributed to delay in seeking care as she thought she could push through the pain ED Course Patient started on Unasyn 3g, also given IV hydromorphone and 1.5L of NS for fluid resuscitation. Patient on 3L NC. HDS. Diagnostics: CXR Findings: A port catheter is seen. The cardiomediastinal silhouette is obscured. Opacities in the left lung compatible with left upper lobe atelectasis. Superimposed aspiration/pneumonia cannot be excluded. No evidence of pleural effusion or pneumothorax. IMPRESSION: Left lung atelectasis, likely of the left upper lobe, is again seen and likely increased from prior exam. Superimposed left aspiration/pneumonia cannot be entirely excluded. Labs notable for: Lactate of 2.8 HsTrop 16.0 procal 0.19 Covid/Flu AB/RSV neg Upon my examination we had a julianna discussion about goals of care. Patient is adamant about continuing CTX and wants treatment of this abscess. Admission Exam Per Admitting Provider Gen: ill appearing female, appears older than state age, mildly labored breathing on NC HEENT: AT NC, EOMI, PERRL, moist mucous membranes, nares patient Resp: labored breathing, no accessory muscle use, decreased breath sounds throughout CV: RRR no m/r/g, clinically well perfused Abd: non-distended MSK: moves all extremities spontaneously Neuro: alert and oriented Psych: appropriate mood and affect Principal Diagnosis Lung abscess Discharge Exam Gen: ill appearing female, appears older than state age, no labored breathing on NC HEENT: AT NC, EOMI, PERRL, moist mucous membranes, nares patent Resp: non-labored breathing, no accessory muscle use, decreased breath sounds throughout CV: RRR no m/r/g, clinically well perfused Abd: non-distended MSK: moves all extremities spontaneously Neuro: alert and oriented Psych: appropriate mood and affect Discharge Data Allergies Allergy/AdvReac Type Severity Reaction Status Date / Time lisinopril AdvReac Unknown Cough Verified 12/15/22 10:12 Consultations 12/15/22 08:36 ED Decision to Admit Stat 12/15/22 10:00 Consult Hematology Routine Consult Pulmonology Routine 12/15/22 14:08 Consult Oncology Routine 12/15/22 16:38 Consult Infectious Diseases Routine Consult Palliative Care Routine Ordered Studies Chest X-Ray 12/15/22 06:38 XR chest 1V not portable CLINICAL HISTORY: Chest pain, nonspecific TECHNIQUE: Single frontal radiograph of the chest was obtained. Comparison: Comparison is made to chest radiograph 11/07/[address] chest 11/18/2022 FINDINGS: A port catheter is seen. The cardiomediastinal silhouette is obscured. Opacities in the left lung compatible with left upper lobe atelectasis. Superimposed aspiration/pneumonia cannot be excluded. No evidence of pleural effusion or pneumothorax. IMPRESSION: Left lung atelectasis, likely of the left upper lobe, is again seen and likely increased from prior exam. Superimposed left aspiration/pneumonia cannot be entirely excluded. Chest CT 12/15/22 10:12 CT chest diagnostic w con CLINICAL HISTORY: lung abscess TECHNIQUE: Multidetector row helical CT of the chest was performed with intravenous contrast. Coronal and sagittal reformations were obtained. Automated dose lowering techniques and/or adjustment according to patient size were utilized for this exam. CT DOSE: 284.13 mGy.cm Comparison: Comparison is made to CT chest 11/18/2022 FINDINGS: Lungs and pleura: Redemonstration of a gas and fluid collection in the left lung measuring approximately 81 x 42 mm, increased from prior exam with increased fluid content is decreased gaseous content. There is collapse of the right upper lung. There is bibasilar atelectasis with small left pleural effusion. Heart and pericardium: There is a small pericardial effusion. Vessels: Unremarkable. Mediastinum and grace: Unremarkable. Chest wall and lower neck: Unremarkable. Abdomen: Unremarkable. Bones: Degenerative changes in the thoracic spine. IMPRESSION: 1. Left upper lung fluid collection has increased in size from prior exam. Findings are concerning for enlarging pulmonary abscess. Empyema is considered less likely. 2. Collapse of the left upper lung is again noted. 3. Small left pleural effusion, unchanged from prior exam, bibasilar atel ectasis is noted. Chest X-Ray 12/16/22 14:24 SINGLE VIEW CHEST CLINICAL HISTORY: Chest tube placement. FINDINGS: An AP, portable, upright chest radiograph is compared to chest x-ray and chest CT dated 12/15/2022. A left subclavian central venous infusion port is unchanged in position. The heart is enlarged. The pulmonary vasculature is noncongested. Emphysema and chronic interstitial thickening is similar to previous. The right lung appears clear. A left-sided chest tube has been placed. There is trace pneumothorax. A left upper lobe opacity persists and may repr esent consolidated lung versus an/or residual fluid collection as seen on yesterday's CT scan. Loculated fluid is noted in the left apex. No right-sided pneumothorax is seen. The skeletal structures are osteopenic. The bony thorax is grossly intact. IMPRESSION: 1. Cardiomegaly and emphysema. 2. A left-sided chest tube has been placed. There is likely trace left-sided pneumothorax. 3. A left upper lobe opacity persists and could represent consolidation and/or residual fluid collection. 4. There is loculated fluid at the left apex. Chest X-Ray 12/17/22 07:00 XR chest 1V portable HISTORY: 62 years-old Female Chest tube status post placement of a left-sided chest tube COMPARISON: 12/16/2022 TECHNIQUE: AP view of the chest FINDINGS: Cardiac silhouette is enlarged. Emphysema with mild chronic interstitial coarsening. Stable positioning of the left subclavian [id number] catheter. A left-sided chest tube is again noted projected over the left midlung. Probable trace residual left-sided pneumothorax. Persistent linear left upper lobe and ill-defined left basilar densities with left hemidiaphragmatic elevation and small left pleural effusion. Bones appear grossly intact. IMPRESSION: 1. A left-sided chest tube is again noted projected over the left midlung. Probable trace residual left-sided pneumothorax. 2. Left basilar and left upper lobe opacities are redemonstrated along with a small left pleural effusion. 3. Emphysema. Chest X-Ray 12/18/22 07:00 SINGLE VIEW CHEST CLINICAL HISTORY: Chest tube. FINDINGS: An AP, portable, upright chest radiograph is compared to chest x-ray dated 12/09/2022. Correlation is made with chest CT dated 12/15/2022. A left subclavian central venous infusion port is unchanged in position. The heart is enlarged. The pulmonary vasculature is noncongested. Emphysema and chronic interstitial thickening is similar to previous. The right lung appears clear. A left-sided chest tube is unchanged in position. Linear atelectasis/scarring is seen in the left upper lobe. No residual pneumothorax is clearly seen. Loculated fluid is again noted at the left apex. The skeletal structures are osteopenic. The bony thorax is grossly intact. IMPRESSION: 1. Cardiomegaly and emphysema. 2. A left-sided chest tube is unchanged in position. No residual pneumothorax is clearly identified. 3. Loculated fluid is again seen at the left apex. Chest X-Ray 12/19/22 07:00 XR chest 1V portable CLINICAL HISTORY: chest tube TECHNIQUE: Single frontal radiograph of the chest was obtained. Comparison: Comparison is made to chest radiograph 12/18/2022 FINDINGS: Left chest tube is unchanged in position. A port catheter is unchanged. Cardiomegaly is noted. Left lung atelectasis is seen and there is unchanged emphysema. No evidence of pleural effusion or pneumothorax. IMPRESSION: Left lung atelectasis is seen. There is no radiographically evident residual pneumothorax. Chest X-Ray 12/20/22 07:00 XR chest 1V portable HISTORY: Left-sided chest tube removal. COMPARISON: Chest 12/19/2022. FINDINGS: Interval removal of the left-sided chest tube. Focal lucency within left midlung zone suggestive a residual air pocket from the drained pulmonary abscess. Linear densities within the left upper lung zone persist and favor subsegmental atelectasis. Left lower lobe airspace opacities are also unchanged. The right lung is clear. Trace left pleural effusion. The heart remains mildly enlarged. Left subclavian Port-A-Cath terminates at the proximal SVC. IMPRESSION: Interval removal of left-sided chest tube. Focal lucency within left midlung zone persists and favors a residual air pocket from the drained pulmonary absc ess. If this is located within the left major fissure than by definition this suggests a small loculated pneumothorax. 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 Antoine and decision to continue with hospice care and DNR/DNI code status. #Cavitary PNA Patient s/p extended course of abx cavitary pneumonia. Patient has had worsening of symptoms the last several days with increased chest pain. CT showed interval enlargement of the abscess now 8.[address] at last admit 5.3 x 3.9 cm. Patient would like to proceed with treatment at this time. Patient was evaluated by pulm on last admit - bronch was deemed high risk given pericardial effusion (chronic per cards). Workup at that time was negative for bacteremia, crypto ag, histo ag, aspergillus ag, and b-d glucan. Quantiferon gold was indeterminate, repeat negative. MRSA nares - neg. Lung abscess - gram negative cocci. IV abx with Unasyn transition to Augmentin on discharge for the foreseeable future. Dr. Antoine placed a chest tube 12/16 which was removed 12/19 after 24 hours of minimal output. CXR showed improvement. #Goals of Care After a long discussion with palliative care patient and family have agreed to continue with hospice care. Patient will be made DNR/DNI. Focus will be on comfort and making memories with family at this time. Will work on dispo planning. As patient plans to continue with hospice heme/onc will be signing off. 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 Was having CTX. Patient has settled with hospice for dispo planning. Likely will not continue with CTX. Patient takes chronic steroids 2/2 cerebral edema. There was a plan for an MRI at [place] this coming week. Unclear if this will be done as goals of care have changed. #Acute respiratory failure with hypoxia Prior to last admission patient was on RA. Has been unable to d/c O2 following hospitalization. Patient breathing much more comfortably after CT guided abscess drainage - now on 2-3L NC. #Pericardial effusion: ECHO at last admit showed moderate sized chronic effusion, no evidence of tamponade. Per cards consult last admission this is chronic and there is no need for intervention. Will hold off on consult this admission unless there is interval progression. #Deconditioning#Weakness Patient with complicated clinical course. Would benefit from daily PT/OT while inpatient. #Depression/Anxiety resume home meds #Esophageal stenosis: Plan was for esophageal dilation outpatient. Will need to hold off on this. PPI BID. Soft diet, allow permissive aspiration. #Peripheral neuropathy Resume home gabapentin Code status: DNR/DNI DVT ppx: SQ heparin 5,000 Q12 FENGI: IVF 75 mL/hr NS, soft GI diet Dispo: med/tele, home with hospice, palliative consulted (2) Chest pain: (3) 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: (4) Esophageal stenosis: (5) Peripheral neuropathy due to chemotherapy: (6) Acute respiratory failure with hypoxia: (7) Pericardial effusion: Total Time Total Time Spent Total Time Spent (In Minutes): see attending attestation Discharge Plan Discharge Items Patient Disposition: Hospice - Home Reason For Visit: CHEST PAIN Discharge Diagnosis: lung abscess Activity: Per Instructions section Non-emergency contact: Primary Care Provider and Oncologist Call non-emergency contact if: your pain is not controlled and your temperature is above 101.5 Follow-up/Referrals: Jane Ortiz DO [Primary Care Provider] - Diet: Regular Addtl Attending Provider Instructions: 62 y/o female with a PMHx of 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 Antoine and decision to continue with hospice care and DNR/DNI code status. #Cavitary PNA Patient s/p extended course of abx cavitary pneumonia. Patient has had worsening of symptoms the last several days with increased chest pain. CT showed interval enlargement of the abscess now 8.[address] at last admit 5.3 x 3.9 cm. Pat ient would like to proceed with treatment at this time. Patient was evaluated by pulm on last admit - bronch was deemed high risk given pericardial effusion (chronic per cards). Workup at that time was negative for bacteremia, crypto ag, histo ag, aspergillus ag, and b-d glucan. Quantiferon gold was indeterminate, repeat negative. MRSA nares - neg. Lung abscess - gram negative cocci. IV abx with Unasyn transition to Augmentin on discharge for the foreseeable future. Dr. Antoine placed a chest tube 12/16 which was removed 12/19 after 24 hours of minimal output. CXR showed improvement. #Goals of Care After a long discussion with palliative care patient and family have agreed to continue with hospice care. Patient will be made DNR/DNI. Focus will be on comfort and making memories with family at this time. Will work on dispo planning. As patient plans to continue with hospice heme/onc will be signing off. 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 Was having CTX. Patient has settled with hospice for dispo planning. Likely will not continue with CTX. Patient takes chronic steroids 2/2 cerebral edema. There was a plan for an MRI at [place] this coming week. Unclear if this will be done as goals of care have changed. #Acute respiratory failure with hypoxia Prior to last admission patient was on RA. Has been unable to d/c O2 following hospitalization. Patient breathing much more comfortably after CT guided abscess drainage - now on 2-3L NC. #Pericardial effusion: ECHO at last admit showed moderate sized chronic effusion, no evidence of tamponade. Per cards consult last admission this is chronic and there is no need for intervention. Will hold off on consult this admission unless there is interval progression. #Deconditioning#Weakness Patient with complicated clinical course. Would benefit from daily PT/OT while inpatient. #Depression/Anxiety resume home meds #Esophageal stenosis: Plan was for esophageal dilation outpatient. Will need to hold off on this. PPI BID. Soft diet, allow permissive aspiration. #Peripheral neuropathy Resume home gabapentin Code status: DNR/DNI DVT ppx: SQ heparin 5,000 Q12 FENGI: IVF 75 mL/hr NS, soft GI diet Dispo: med/tele, home with hospice, palliative consulted Pending Studies at Discharge: No Stand-Alone Forms: My [facility] Medications and DC Order Prescriptions: New amoxicillin-pot clavulanate 875-125 mg tablet 1 tab PO BID Qty: 60 1RF oxycodone 5 mg/5 mL Solution 5 mg PO Q2H PRN (Reason: breakthrough pain, severe) Qty: 120 0RF fentanyl 12 mcg/hr Patch 72 Hour 12 mcg transdermal Q3D Qty: 10 0RF Continued pregabalin 150 mg capsule 150 mg PO BID Qty: 60 5RF Rx Instructions: PDMP check last fill 10/21/21 meclizine 25 mg tablet 25 mg PO Q6H PRN (Reason: dizziness) Qty: 60 0RF venlafaxine 75 mg tablet 75 mg PO QAM Rx Instructions: PO daily amlodipine 10 mg tablet 10 mg PO QAM lorazepam 0.5 mg tablet 0.5 - 1 mg PO Q8H PRN (Reason: anxiety) Qty: 30 0RF Rx Instructions: 1-2 tabs PO every 8 hours PRN; pantoprazole [address] for susp in packet 40 mg PO BID ondansetron HCl 4 mg tablet 4 mg PO Q8H PRN (Reason: nausea and vomiting) Qty: 30 0RF benzonatate 100 mg capsule 100 mg PO TID PRN (Reason: cough) Qty: 30 0RF albuterol sulfate 90 mcg/actuation HFA aerosol inhaler 2 inh inhalation Q6H PRN (Reason: Shortness Of Breath) magnesium 200 mg Tablet 400 mg PO DAILY dexamethasone 2 mg tablet 4 mg PO BID Discharge Orders: Discharge Order (Routine); Ordered 12/20/22 Ordered By: Asia Sanchez Admission Data Admit Date/Time: 12/15/22 13:29 Attending Provider: Sedrick Barkley Admit Provider: Asia Sanchez Primary Care Provider: Jane Ortiz Other Providers: Ce Arrieta ; Benji Muse ; Yamilex Alejandra ; Paris Nolasco Other Interventions: Discharge Summary Assessment (RN) Last Done: 12/20/22 15:51 Supervising Physician Co-Signing Physician Notes I personally examined the patient and verified all riddle points of history and exam, discussed case, and agree with decision making with Dr Daniel nunez.for hospice today Vitals noted, in general she is resting comfortably no distress. Breathing unlabored no accessory muscle use good effort. Skin shows no rashes no pallor or icterus. Neuro without focal deficits. Lung abscessfortunately pulmonary was able to affect drainage, this should temporize the situation. Continue antibiotics for suppression. Pain controlled overall - home w hospice. Otherwise as above Resident Activity Tracking Resident Involvement: Resident Care Provided Care Provided: Adult Hospital Medicine
--- NOTE | 2022-12-20 09:01 | Infectious Disease Progress Nt ---
Date of Service December 20, 2022 Assessment & Plan (1) Pulmonary abscess: Plan: #lung abscess - in setting of recently treated cavitary PNA, which based on risk factors, was thought likely related to aspiration, with underlying progressive lung ca. Consideration for empyema noted at time. -pt worsened after completion of course of abx -absence of leukocytosis or significant L shift on admission -on unasyn but with limited efficacy given contained lung abscess -pt with ongoing aspiration- witnessed choking episode -underlying lung ca with brain mets- to be discharged on hospice -s/p chest tube placement- chest tube has been removed as planned prior to discharge -12/15 blood cultures with veillonella in 1 of 2 sets. 12/16 pleural fluid cxs with prevotella Plan Rec: Veillonella in 1 of 2 sets Bcxs on admission and Prevotella in lung abscess cx are consistent with lung abscess source and expected to be covered by unasyn/augmentin. No need to document clearance of veillonella. Upon discha rge, unasyn can be changed to Augmentin 875mg PO q12 (liquid solution may be preferable to pt). Duration is unclear as she is being discharged to hospice- typically would be for at least 3-4 weeks followed by repeat imaging to determine if abx need to be continued further. As pt expected to be discharged today, will sign off at this time. Please page with any questions. Maribel Whitt M.D. [facility] [employer] Pager [phone] Admission and Anticipated Discharge Date Admission Date: December 15, 2022 Subjective This patient recommendation is based on a telemedicine consult request which was completed asynchronously through chart review and information provided by the primary physician. The patient was not seen or examined today. The evaluation is consultative in nature and all patient care and treatment decisions can either be accepted or rejected by the patient's primary hospital-based treating physician using their own independent medical judgment for their patient. Time Spent Reviewing Chart: 21 - 30 minutes pt afebrile. Chest tube was removed. She is to be discharged to hospice on antibiotics at her preference in discussion with palliative care Results & Data Vital Signs (Past 12 Hours) Vital Signs Temp Pulse Pulse Resp BP Pulse Ox O2 Del Method 12/20/22 07:42 36.8 C 98 H 18 131/85 95 Room Air 03/31/23 07:36 36.5 C 82 18 175/91 H 96 Nasal Cannula 12/20/22 02:40 36.5 C 75 18 161/95 H 97 Nasal Cannula 12/19/22 22:03 79 12/19/22 22:32 36.5 C 83 16 167/92 H 93 Nasal Cannula 12/19/22 21:00 Nasal Cannula O2 Flow Rate 12/20/22 07:42 12/20/22 07:36 2 12/20/22 02:40 2 12/19/22 22:03 12/19/22 22:32 2 12/19/22 21:00 Laboratory Results 12/16/22 Unknown Acid Fast Bacilli Smear - Final Pleural Fluid Acid Fast Bacilli Culture - Pending 12/16/22 Unknown Gram Stain - Final Pleural Fluid Aerobic and Anaerobic Culture - Preliminary Prevotella buccae 12/15/22 07:54 Aerobic Blood Culture - Preliminary Blood No growth in Aerobic bottle after 48 hours. Anaerobic Blood Culture - Preliminary Veillonella species 12/20/22 12/20/22 12/19/22 06:01 06:01 09:08 WBC 6.88 RBC 2.49 L Hgb 8.4 L Hct 25.9 L MCV 104.0 H MCH 33.7 MCHC 32.4 RDW Std Deviation 74.0 H RDW Coeff of Sebastián 19.4 H Plt Count 107 L MPV 11.4 Immature Gran % (Auto) Neut % (Auto) Lymph % (Auto) Logan % (Auto) Eos % (Auto) Baso % (Auto) Neut # (Auto) Lymph # (Auto) Logan # (Auto) Eos # (Auto) Baso # (Auto) Immature Gran # (Auto) Absolute Nucleated RBC 0.08 Nucleated RBC % (auto) 1.2 Neutrophils % (Manual) 91 Lymphocytes % (Manual) 2 Monocytes % (Manual) 3 Metamyelocytes % (Man) 3 Myelocytes % (Man) 3 Neutrophils # (Manual) 6.26 Total Absolute Neuts 6.26 Lymphocytes # (Manual) 0.14 L Total Abs Lymphocytes 0.14 L Monocytes # (Manual) 0.21 Metamyelocytes # (Man) 0.21 H Myelocytes # (Manual) 0.21 H Polychromasia 1+ Anisocytosis Tear Drop Cells 1+ Sodium 144 145 Potassium 3.8 3.7 Chloride 111 H 110 H Carbon Dioxide 26 25 Anion Gap 7 10 BUN 21 24 H Creatinine 1.12 1.17 Est Cr Clr Drug Dosing 51.2 48.9 Est GFR ( Amer) 61.8 58.7 Est GFR (Non-Af Amer) 53.4 50.6 BUN/Creatinine Ratio 18.8 20.5 H Glucose 121 H 118 H Calcium 8.3 L 8.7 Phosphorus 3.3 2.5 Magnesium 1.7 1.8 12/19/22 09:08 WBC 7.64 RBC 2.80 L Hgb 9.3 L Hct 29.7 L MCV 106.1 H MCH 33.2 MCHC 31.3 L RDW Std Deviation 78.0 H RDW Coeff of Sebastián 19.8 H Plt Count 120 L MPV 11.3 Immature Gran % (Auto) 8.8 Neut % (Auto) 78.1 Lymph % (Auto) 6.5 Logan % (Auto) 5.9 Eos % (Auto) 0.0 Baso % (Auto) 0.7 Neut # (Auto) 5.97 Lymph # (Auto) 0.50 L Logan # (Auto) 0.45 Eos # (Auto) 0.00 Baso # (Auto) 0.05 Immature Gran # (Auto) 0.67 H Absolute Nucleated RBC 0.08 Nucleated RBC % (auto) 1.0 Neutrophils % (Manual) Lymphocytes % (Manual) Monocytes % (Manual) Metamyelocytes % (Man) Myelocytes % (Man) Neutrophils # (Manual) Total Absolute Neuts Lymphocytes # (Manual) Total Abs Lymphocytes Monocytes # (Manual) Metamyelocytes # (Man) Myelocytes # (Manual) Polychromasia 1+ Anisocytosis Present Tear Drop Cells 1+ Sodium Potassium Chloride Carbon Dioxide Anion Gap BUN Creatinine Est Cr Clr Drug Dosing Est GFR ( Amer) Est GFR (Non-Af Amer) BUN/Creatinine Ratio Glucose Calcium Phosphorus Magnesium Diagnostic Findings Chest X-Ray 12/18/22 07:00 SINGLE VIEW CHEST CLINICAL HISTORY: Chest tube. FINDINGS: An AP, portable, upright chest radiograph is compared to chest x-ray dated 12/09/2022. Correlation is made with chest CT dated 12/15/2022. A left subclavian central venous infusion port is unchanged in position. The heart is enlarged. The pulmonary vasculature is noncongested. Emphysema and chronic interstitial thickening is similar to previous. The right lung appears clear. A left-sided chest tube is unchanged in position. Linear atelectasis/scarring is seen in the left upper lobe. No residual pneumothorax is clearly seen. Loculated fluid is again noted at the left apex. The skeletal structures are osteopenic. The bony thorax is grossly intact. IMPRESSION: 1. Cardiomegaly and emphysema. 2. A left-sided chest tube is unchanged in position. No residual pneumothorax is clearly identified. 3. Loculated fluid is again seen at the left apex. ACT 112: Negative or not required by law. Electronically signed by: Bennett Petersen M.D. 12/18/2022 10:09 AM Chest X-Ray 12/19/22 07:00 XR chest 1V portable CLINICAL HISTORY: chest tube TECHNIQUE: Single frontal radiograph of the chest was obtained. Comparison: Comparison is made to chest radiograph 12/18/2022 FINDINGS: Left chest tube is unchanged in position. A port catheter is unchanged. Cardiomegaly is noted. Left lung atelectasis is seen and there is unchanged emphysema. No evidence of pleural effusion or pneumothorax. IMPRESSION: Left lung atelectasis is seen. There is no radiographically evident residual pneumothorax. ACT 112: Negative or not required by law. Electronically signed by: Silvino Raphael M.D. 12/19/2022 8:01 AM Chest X-Ray 12/20/22 07:00 XR chest 1V portable HISTORY: Left-sided chest tube removal. COMPARISON: Chest 12/19/2022. FINDINGS: Interval removal of the left-sided chest tube. Focal lucency within left midlung zone suggestive a residual air pocket from the drained pulmonary abscess. Linear densities within the left upper lung zone persist and favor subsegmental atelectasis. Left lower lobe airspace opacities are also unchanged. The right lung is clear. Trace left pleural effusion. The heart remains mildly enlarged. Left subclavian Port-A-Cath terminates at the proximal SVC. IMPRESSION: Interval removal of left-sided chest tube. Focal lucency within left midlung zone persists and favors a residual air pocket from the drained pulmonary abscess. If this is located within the left major fissure than by definition this suggests a small loculated pneumothorax. ACT 112: Negative or not required by law. Electronically signed by: Francisco Aquino M.D. 12/20/2022 8:37 AM Medications Administered Current Medications Albuterol (Albuterol Hfa 8 Gm Inhaler) 2 puffs INH PRN PRN; Protocol PRN Reason: Wheezing Stop: 01/14/23 12:59 Fentanyl (Fentanyl 12 Mcg/Hr Tdsy) 12 mcg TD Q3D [facility] Stop: 01/02/23 18:59 Last Admin: 12/19/22 20:25 Dose: 12 mcg Heparin Sodium (Porcine) (Heparin Sod 5,000 Unit/0.5 Ml Vial) 5,000 units SQ Q12 [facility] Stop: 01/14/23 13:14 Last Admin: 12/19/22 20:33 Dose: 5,000 units Heparin Sodium (Porcine) (Heparin 100 Unit/Ml 5ml Flush) 5 ml FLUSH PRN PRN PRN Reason: Flush Stop: 01/15/23 03:03 Sodium Chloride (Nss 1000ml) 1,000 mls @ 75 mls/hr IV .[id number] [facility] Stop: 01/14/23 09:59 Last Admin: 12/19/22 20:30 Dose: 75 mls/hr Ampicillin Sodium/Sulbactam Sodium 3,000 mg/ Sodium Chloride 108 mls @ 200 mls/hr IV Q6H [facility]; Protocol Stop: 12/22/22 16:44 Last Infusion: 12/20/22 06:31 Dose: Infused Dexamethasone 4 mg/ Syringe 1 mls @ 1 mls/min IV BID [facility] Stop: 01/14/23 20:59 Last Admin: 12/19/22 20:33 Dose: 1 mls/min Lorazepam (Lorazepam 0.5 Mg Tab) 0.5 mg PO PRN PRN PRN Reason: Anxiety Stop: 01/14/23 12:58 Last Admin: 12/17/22 10:55 Dose: 0.5 mg Miscellaneous (Check Fentanyl Patch Placement) 1 each N/A QS [facility] Stop: 01/19/23 00:00 Last Admin: 12/20/22 00:11 Dose: 1 each Miscellaneous (Fentanyl Patch Remove & Waste) 1 each N/A Q3D [facility] Stop: 01/18/23 18:59 Last Admin: 12/19/22 20:26 Dose: 1 each Morphine Sulfate (Morphine Sulfate 2 Mg/Ml Carp) 2 mg IV Q2H PRN PRN Reason: severe pain or dyspnea Stop: 12/29/22 09:59 Last Admin: 12/19/22 10:05 Dose: 2 mg Oxycodone HCl (Oxycodone Hcl Soln 5 Mg/5 Ml Udc) 5 mg PO Q2H PRN PRN Reason: moderate to severe pain Stop: 12/31/22 14:37 Last Admin: 12/19/22 16:21 Dose: 5 mg Pantoprazole Sodium (Pantoprazole 40 Mg Tab) 40 mg PO BID [facility] Stop: 01/15/23 20:59 Last Admin: 12/19/22 20:33 Dose: 40 mg Pregabalin (Pregabalin 150 Mg Cap) 150 mg PO BID [facility] Stop: 01/14/23 20:59 Last Admin: 12/19/22 20:33 Dose: 150 mg Venlafaxine HCl (Venlafaxine Hcl 37.5 Mg Tab) 75 mg PO QAM [facility] Stop: 01/14/23 12:59 Last Admin: 12/19/22 10:05 Dose: 75 mg (1) Pulmonary abscess Laterality: left Lung location: upper lobe of lung Pulmonary abscess pneumonia presence: with pneumonia Qualified Code(s): J85.1 - Abscess of lung with pneumonia
[2022-12-20] MEDS: HEPARIN SOD 5,000 UNIT/0.5 ML VIAL SQ SCH (09:33)
[2022-12-20] MEDS: PREGABALIN 150 MG CAP PO SCH (09:34)
[2022-12-20] MEDS: VENLAFAXINE HCL 37.5 MG TAB PO SCH (09:34)
[2022-12-20] MEDS: dexAMETHasone 4 MG in SYRINGE 0 ML IV SCH (09:34)
[2022-12-20] MEDS: PANTOprazole 40 MG TAB PO SCH (09:34)
[2022-12-20 11:47] VITALS: BP 157/94; TEMP 97.9; O2SAT 96
[2022-12-20] MEDS ORDERED: DOCUSATE SODIUM 100 MG CAP PO PRN (12:03)
[2022-12-20] MEDS ORDERED: POLYETHYLENE (MIRALAX) 17 GM PACK PO SCH (12:15)
[2022-12-20] MEDS: SODIUM CHLORIDE 0.9% 1000ML 1,000 ML IV SCH (12:31)
[2022-12-20 15:53] VITALS: PULSE 86
--- NOTE | 2022-12-20 17:38 | Billing Data ---
Date of Service December 20, 2022 Coding Level of Care Code 07916 IN/OBS DISCH 30 MIN/LESS
== END 2022-12-20 17:01 | disposition hospice, home (50) | DRG 177 ==
LOC: ED 06:28 → EDINP 13:29 → SUATTDRO 13:29 → EDINP 13:57 → 2W 16:26